=== PATIENT | female | born 1940 | race Caucasian/White ===

== ENCOUNTER 2016-09-03 12:29 | Inpatient (IN) | payer OTHER ==
[~2016-09-03] VITALS: Ht 157.5 cm; Wt 64.1 kg
--- NOTE | 2016-09-03 12:24 | EMERGENCY ROOM VISIT NOTE ---
History Report prepared by Sancho: Nathan Cruz Under the Supervision of: Dr. Enrike Vergara M.D. First contact with patient: 12:23 Stated Complaint: TACHYCARDIA History of Present Illness The patient is a 76 year old female who presents to the Emergency Room with complaints of episodes of supraventricular tachycardia that started around 0945 this morning. The patient has a history of strokes and does not have a history of coronary artery disease. Per EMS, the patient developed chest pain around 0945, then she went to [facility] and told family there that she was not feeling well. The family called an ambulance, and on EMS arrival, the patent was found to be in supraventricular tachycardia. The patient had a heart rate of 180 and a blood pressure of 53 systolic. She was given 6 mg of Adenosine IV and was briefly converted to normal sinus rhythm. She was also given 324 mg of Aspirin. She then returned to supraventricular tachycardia and was given 12 mg of Adenosine IV. She then returned again to normal sinus rhythm. Currently, the patient says she feels okay and just feels a little "weird". She does say the chest pain may be coming back. She denies any loss of consciousness, fevers, chills, cough, or headaches. The patient did not feel like passing out. She is on a blood thinner. The patient is diabetic. Her blood sugar was 151, per EMS. Source of History: patient, EMS Onset: 0945 this morning Position: other (heart - supraventricular tachycardia) Timing: other (episodes) Modifying Factors (Relieving): other (Adenosine) Associated Symptoms: + chest pain, No LOC, No chills, No cough, No fevers, No headache Note: Associated symptoms: Denies feeling like passing out. Currently feels a bit "weird". Review of Systems See HPI for pertinent positives & negatives. A total of 10 systems reviewed and were otherwise negative. Past Medical & Surgical Medical Problems: (1) Diabetes (2) Syncopal episodes Surgical Problems: (1) S/P cataract surgery Family History FHx: heart disease Social History Marital Status: Housing Status: lives with family Occupation Status: retired Current/Historical Medications Scheduled Calcium Carbonate (Calcium), 600 MG PO BID Clopidogrel Bisulfate (Clopidogrel), 75 MG PO QAM Ergocalciferol (Vitamin D 92307 Unit), 50,000 UNIT PO MONTHLY Gemfibrozil (Lopid), 600 MG PO BID Hctz/Losartan (Hyzaar 25MG/100MG), 1 TAB PO DAILY Metformin Hcl Er (Glucophage Er), 500 MG PO DAILY Omeprazole (Prilosec), 20 MG PO DAILY Pravastatin (Pravachol ), 10 MG PO DAILY Verapamil Sust Rel (Calan Sr Ext Rel), 240 MG PO DAILY Allergies Coded Allergies: Lisinopril (Unverified Allergy, Unknown, COUGHING, 09/03/16) Physical Exam Vital Signs Date Time Temp Pulse Resp B/P Pulse Ox O2 Delivery O2 Flow Rate FiO2 09/03/16 13:44 68 12 100 09/03/16 13:29 70 21 99 09/03/16 13:14 70 14 99 09/03/16 12:59 69 20 97/51 100 09/03/16 12:45 72 09/03/16 12:45 Nasal Cannula 4.0 09/03/16 12:45 36.7 72 16 100/43 99 4.0 09/03/16 12:45 100 Nasal Cannula 4.0 09/03/16 12:44 78 23 100 09/03/16 12:44 178 09/03/16 12:43 100/43 09/03/16 12:42 77 09/03/16 12:40 91/68 09/03/16 12:38 171 09/03/16 12:38 80/52 09/03/16 12:35 106/80 Physical Exam GENERAL: Patient is uncomfortable appearing and in minimal distress. HEENT: No acute trauma, normocephalic atraumatic, mucous membranes moist, no nasal congestion, no scleral icterus. NECK: No stridor, no adenopathy, no meningismus, trachea is midline. LUNGS: No dyspnea. Clear to auscultation and equal bilaterally. No wheeze, no rhonchi. HEART: Tachycardic heart rate and regular rhythm. No murmurs, rubs, gallops appreciated. ABDOMEN: Soft, nontender, bowel sounds positive, no masses appreciated, no peritonitis. BACK: No midline tenderness, no CVA tenderness EXTREMITIES: Normal motion all extremities, no cyanosis, no edema. NEUROLOGIC: Alert and oriented, no acute motor or sensory deficits, no focal weakness, cranial nerves grossly intact. SKIN: No rash, no jaundice, no diaphoresis. Medical Decision & Procedures ER Provider Diagnostic Interpretation: X ray results are stated below per my interpretation and the radiologist's interpretation. CHEST ONE VIEW PORTABLE CLINICAL HISTORY: Chest Pain dyspnea COMPARISON STUDY: 07/03/2015 FINDINGS: The bones soft tissues and hemidiaphragms are normal. The cardiomediastinal silhouette is normal. The lungs are clear. The pulmonary vasculature is normal. IMPRESSION: Negative chest. Electronically signed by: Malachi Bajwa M.D. 09/03/2016 1:40 PM Dictated Date/Time: 09/03/2016 1:40 PM Laboratory Results 09/03/16 12:35 Red Blood Count 3.82, Mean Corpuscular Volume 88.2, Mean Corpuscular Hemoglobin 30.4, Mean Corpuscular Hemoglobin Concent 34.4, Mean Platelet Volume 10.7, Neutrophils (%) (Auto) 57.5, Lymphocytes (%) (Auto) 30.3, Monocytes (%) (Auto) 8.8, Eosinophils (%) (Auto) 2.3, Basophils (%) (Auto) 0.9, Neutrophils # (Auto) 5.40, Lymphocytes # (Auto) 2.85, Monocytes # (Auto) 0.83, Eosinophils # (Auto) 0.22, Basophils # (Auto) 0.08 09/03/16 12:35 Test 09/03/16 12:35 09/03/16 12:45 White Blood Count 9.40 K/uL (4.8-10.8) Red Blood Count 3.82 M/uL (4.2-5.4) Hemoglobin 11.6 g/dL (12.0-16.0) Hematocrit 33.7 % (37-47) Mean Corpuscular Volume 88.2 fL (80-100) Mean Corpuscular Hemoglobin 30.4 pg (25-34) Mean Corpuscular Hemoglobin Concent 34.4 g/dl (32-36) Platelet Count 282 K/uL (130-400) Mean Platelet Volume 10.7 fL (7.4-10.4) Neutrophils (%) (Auto) 57.5 % Lymphocytes (%) (Auto) 30.3 % Monocytes (%) (Auto) 8.8 % Eosinophils (%) (Auto) 2.3 % Basophils (%) (Auto) 0.9 % Neutrophils # (Auto) 5.40 K/uL (1.4-6.5) Lymphocytes # (Auto) 2.85 K/uL (1.2-3.4) Monocytes # (Auto) 0.83 K/uL (0.11-0.59) Eosinophils # (Auto) 0.22 K/uL (0-0.5) Basophils # (Auto) 0.08 K/uL (0-0.2) RDW Standard Deviation 45.2 fL (36.4-46.3) RDW Coefficient of Variation 14.0 % (11.5-14.5) Immature Granulocyte % (Auto) 0.2 % Immature Granulocyte # (Auto) 0.02 K/uL (0.00-0.02) Est Creatinine Clear Calc Drug Dose 35.6 ml/min Estimated GFR () 51.2 Estimated GFR (Non- 44.2 BUN/Creatinine Ratio 19.7 (10-20) Calcium Level 9.0 mg/dl (8.5-10.1) Magnesium Level 1.8 mg/dl (1.8-2.4) Total Creatine Kinase 55 U/L (26-192) Creatine Kinase MB 3.3 ng/ml (0.5-3.6) Creatine Kinase MB Ratio 6.0 (0-3.0) Troponin I 0.037 ng/ml (0-0.045) Thyroid Stimulating Hormone (TSH) 5.430 uIu/ml (0.300-4.500) Bedside Hemoglobin 10.9 g/dl (12.0-16.0) Bedside Hematocrit 32 % (37-47) Bedside Sodium 142 mEq/L (135-144) Bedside Potassium 2.7 mEq/L (3.3-5.0) Bedside Chloride 107 mEq/L (101-112) Bedside Total CO2 19 mEq/l (24-31) Anion Gap 20.0 mmol/L (16-25) Bedside Blood Urea Nitrogen 24 mg/dl (7-18) Bedside Creatinine 1.0 mg/dl (0.6-1.3) Bedside Glucose (other) 121 mg/dl (70-99) Bedside Ionized Calcium ([place]) 1.25 mmol/l (1.12-1.32) Laboratory results as reviewed by me. Medications Administered Medications (Trade) Dose Ordered Sig/Tito Route Start Time Stop Time Status Last Admin Dose Admin Diltiazem HCl (Cardizem Inj) 25 mg STK-MED ONCE .ROUTE 09/03/16 12:33 09/03/16 12:35 DC 09/03/16 12:56 15 MG Adenosine (Adenosine IV) 6 mg STK-MED ONCE IV 09/03/16 12:38 09/03/16 12:40 DC 09/03/16 12:44 6 MG Potassium Chloride (Kcl 10 Meq / Wtr) 20 meq STK-MED ONCE IV 09/03/16 13:08 09/03/16 13:10 DC 09/03/16 13:18 20 MEQ ECG Indication: tachycardia (SVT) Rate (beats per minute): 71 Rhythm: normal sinus Findings: 1st degree AV block, other (prolonged QTC of 489, nonspecific-ST depressions) ED Course 1230: The patient was evaluated in room C11B. A complete history and physical exam was performed. 1247: I discussed the patient with Dr. Walden - [facility] cardiology. 1259: Ordered Potassium Chloride 20 meq/Prmx 100 ml @ 50 mls/hr IV. 1307: Dr. Walden is at bedside. 1335: I reevaluated the patient and she is resting comfortably. The patient verbally expressed understanding and agreement of the treatment plan. The patient will be evaluated for further treatment. 1336: I discussed the patient with Dr. Delgado - [facility] hospital[facility] - he will evaluate the patient for for further treatment. Medical Decision Differential: NSR, SVT, PACs, PVCs, Cardiac Dysrhythmia, Endocrine Dysfunction, Electrolyte/Metabolic Abnormality, Pulmonary Embolism, Infectious, GI, amongst other pathologies entertained. 76 yr old female arrives via EMS already known SOCIAL MEDIA EDITOR to me as EMS called me for med command. Patient with several hours chest pressure found to be in SVT on EMS arrival. Given 2 rounds adenosine SOCIAL MEDIA EDITOR each time with resolution of CP and SVT though after 5-10 minutes returning to SVT. She flipped back to SVT shortly after arrival thus started Cardizem though as BP dropping given another dose Adenosine with return to NSR. Prolonged RI consistent with first av block. She is stable and in no distress. K is quite low which could be cause though likely this is primary electrical issue. Given IV K as well though. Significant ST abnormalities while in SVT and given chest pressure and difficulty with converting she will need to come in for further management. Already had [facility] SOCIAL MEDIA EDITOR. Consults Time Called: 1220 Consulting Physician: Dr. Win Israel cardiology Returned Call: 1247 I discussed the patient with Dr. Win Israel cardiology. Additional Consults: Time Called: 1330 Consulted Physician: Dr. Sandy CHIU hospitalist Returned Call: [phone] Additional Comments: I discussed the patient with Dr. Sandy CHIU hospitalist - he will evaluate the patient for for further treatment. Impression Primary Impression: SVT (supraventricular tachycardia) Additional Impression: Hypokalemia Critical Care I have personally spent greater than 35 minutes of critical care time in the direct management of this patient. This was a life/limb threatening event. This includes time spent evaluating patient, direct bedside care, chart review, placing orders, interpretation of diagnostic studies, discussion with consultants, patient, and family members, as well as other required patient management activities. This 35 minutes is in excess of all separately billable procedures. Scribe Attestation The scribe's documentation has been prepared under my direction and personally reviewed by me in its entirety. I confirm that the note above accurately reflects all work, treatment, procedures, and medical decision making performed by me. Departure Information Dispostion Being Evaluated By Hospitalist Problem Qualifiers
[~2016-09-03 12:29] MED LIST: CALCTAB5 PO; GEMF600T3 PO; LOSA100T2 PO; METF500T5 PO; PLV75 PO; PRAV20TA PO; VERA240T20 PO
[2016-09-03] MEDS ORDERED: DILTIAZEM HCL 5 MG/ML 5 ML VIAL ONE (12:33)
[2016-09-03] MEDS ORDERED: ADENOSINE IV SOLN 3 MG/ML 2 ML VIAL IV ONE ×2 (12:38→13:12)
[2016-09-03 12:51] LABS: BASO % 0.9 %; BASO ABS # 0.08 K/uL (0-0.2); COMPLETE YES; EOS % 2.3 %; HEMATOCRIT 33.7 % (37-47); IG% 0.2 %; LYMPH % 30.3 %; LYMPH ABS # 2.85 K/uL (1.2-3.4); MEAN CELL VOLUME 88.2 fL (80-100); MEAN CORPUSCULAR HEMOGLOBIN 30.4 pg (25-34); MEAN CORPUSCULAR HGB CONC 34.4 g/dl (32-36); MEAN PLATELET VOLUME 10.7 fL (7.4-10.4); MONO % 8.8 %; NEUT % 57.5 %; PLATELET COUNT 282 K/uL (130-400); RED BLOOD COUNT 3.82 M/uL (4.2-5.4)
[2016-09-03] MEDS ORDERED: POTASSIUM CHLR 20 MEQ / WTR 20 MEQ in PREMIXED WATER 100 ML IV STA (12:59)
[2016-09-03 13:02] LABS: ISTAT HEMOGLOBIN 10.9 g/dl (12.0-16.0); ISTAT IONIZED CALCIUM 1.25 mmol/l (1.12-1.32)
[2016-09-03] MEDS ORDERED: POTASSIUM CHLORIDE 10 MEQ / 100ML WTR IV ONE (13:08)
[2016-09-03 13:10] LABS: BUN/CREATININE RATIO 19.7 (10-20); CREATININE 1.2 mg/dl (0.60-1.20); MAGNESIUM 1.8 mg/dl (1.8-2.4); POTASSIUM 2.8 mmol/L (3.5-5.1)
[2016-09-03 13:20] LABS: THYROID STIMULATING HORMONE 5.43 uIu/ml (0.300-4.500)
[2016-09-03] MEDS ORDERED: HYZ/10015 PO (13:32)
[2016-09-03] MEDS ORDERED: CALC-393 PO (13:32)
[2016-09-03] MEDS ORDERED: ERGO500037 PO (13:34)
[2016-09-03] MEDS ORDERED: PRLSR20 PO (13:34)
--- NOTE | 2016-09-03 13:42 | DIAGNOSTIC IMAGING REPORT ---
CHEST ONE VIEW PORTABLE CLINICAL HISTORY: Chest Pain dyspnea COMPARISON STUDY: 07/03/2015 FINDINGS: The bones soft tissues and hemidiaphragms are normal. The cardiomediastinal silhouette is normal. The lungs are clear. The pulmonary vasculature is normal. IMPRESSION: Negative chest. Electronically signed by: Malachi Bajwa M.D. 09/03/2016 1:40 PM Dictated Date/Time: 09/03/2016 1:40 PM
[2016-09-03] MEDS ORDERED: ALUMINUM/MAGNESIUM/SIMETH (MAALOX MAX) 30 ML UDC PO PRN (14:00)
[2016-09-03] MEDS ORDERED: MAGNESIUM HYDROXIDE SUSP 30 ML UDC PO PRN (14:00)
[2016-09-03] MEDS ORDERED: NITROGLYCERIN 0.4 MG SL PER TAB CHARGE SL PRN (14:00)
[2016-09-03] MEDS ORDERED: ACETAMINOPHEN 325 MG TAB PO PRN (14:00)
[2016-09-03] MEDS ORDERED: ONDANSETRON INJ 2 MG/ML 2 ML VIAL IV PRN (14:00)
--- NOTE | 2016-09-03 14:11 | Cardiology Consultation ---
Cardiology Consultation Date of Consultation: Sep 03, 2016 History of Present Illness Ya Dejesus is a 76-year-old female seen in cardiology consultation in the emergency department per the request of Dr. Vergara. The patient's primary care provider is Dr. Rosalie Reece of [facility]. She does not have the previously established relationship with a calibration checker, although she has had inpatient and outpatient echocardiogram studies interpreted by our practice in the past. The patient states that she was in her regular state of health today. Her taoism surface starts at 10:45 AM and she noted feeling well when she arrived to taoism. During the taoism service she started to feel chest pressure and upper arm discomfort. She completed the taoism service and complete some chores that she had do at the taoism afterward. She subsequently went home. She lives with her daughter and her son-in-law. She continued to have the chest pressure and therefore EMS was summoned. Upon arrival, she was found to have a significant elevation in her heart rate. An EKG performed by paramedics prehospital reveals a narrow complex tachycardia at [address] segment depression consistent with ischemia. The patient received 6 mg of adenosine administered by the paramedics, followed by 12 mg of adenosine. She subsequent converted to sinus rhythm. By the time she arrived to the emergency department however she went back into the tachycardia. 5 mg of diltiazem was then administered. The dose of diltiazem was small due to concerns of systolic blood pressure of 80 mmHg. The patient subsequently received 6 mg of adenosine with conversion back to sinus rhythm, she had another brief episode of tachycardia prompting another 10 mg of IV diltiazem. I was asked to see the patient. By my arrival, she had converted to sinus rhythm after IV diltiazem and she is feeling comfortable. Her chest discomfort had completely resolved, and she stated that she felt well enough to go home. The patient states that she does not recall ever having a prolonged chest pain episode like this before. She does note perhaps a similar heavy chest and arm ache about a year ago but it was not this prolonged period she did not have a subjective sensation that her heart was racing. Review of her outpatient chart reveals past history of mitral valve stenosis. Outpatient stress echocardiogram performed in November 2014 revealed moderate mitral stenosis. Frequent supraventricular ectopy was noted on the stress EKG, the study was negative for inducible ischemia by echocardiographic and EKG criteria. The patient was subsequently admitted to [facility] in June 2015 after a loss of consciousness episode possibly due to syncope versus seizure. An echocardiogram performed during that hospital stay found moderate to severe mitral valve stenosis. The patient has underlying history of hypertension and has been on losartan/ HCTZ as well as verapamil 240 mg daily. She does not recall ever having been told she had elevated heart rates before. History PAST MEDICAL HISTORY: 1. Mitral valve stenosis 2. Finding of asymmetric septal hypertrophy and past echocardiogram 3. Type 2 diabetes mellitus 4. Dyslipidemia 5. Hypertension 6. Stage III chronic kidney disease 7. Past workup revealed evidence of lacunar strokes, 2015 prompting treatment with clopidogrel PAST SURGICAL HISTORY: 1. Total hysterectomy, age 38 for concerns of precancerous findings 2. Tonsillectomy as a child 3. Appendectomy performed with her hysterectomy 4. 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 Review Of Systems See above for pertinent positives & negatives. A total of 10 systems reviewed and were otherwise negative. Allergies Coded Allergies: Lisinopril (Unverified Allergy, Unknown, COUGHING, 09/03/16) Medications Reported Home Medications Medications Dose Route/Sig Max Daily Dose Days Date Category Vitamin D 89523 Unit (Ergocalciferol) 50,000 Unit Cap 50,000 Unit PO MONTHLY 09/03/16 Reported Prilosec (Omeprazole) 20 Mg Capcr 20 Mg PO DAILY 09/03/16 Reported Hyzaar 25MG/100MG (HCTZ/Losartan Potassium) Tab 1 Tab PO DAILY 09/03/16 Reported Calcium (Calcium Carbonate) 600 Mg Tab 600 Mg PO BID 09/03/16 Reported Clopidogrel (Clopidogrel Bisulfate) 75 Mg Tab 75 Mg PO QAM 30 07/04/15 Rx Lopid (Gemfibrozil) 600 Mg Tab 600 Mg PO BID 07/03/15 Reported Glucophage Er (Metformin HCl) 500 Mg Tab 500 Mg PO DAILY 90 07/03/15 Reported Calan Sr Ext Rel (Verapamil HCl) 240 Mg Tabcr 240 Mg PO DAILY 07/03/15 Reported Pravachol (Pravastatin Sodium) 20 Mg Tab 10 Mg PO DAILY 07/03/15 Reported Physical Exam Vital Signs (Last 8hrs): Last 8 Hrs Date Time Temp Pulse Resp B/P Pulse Ox O2 Delivery O2 Flow Rate FiO2 09/03/16 13:44 68 12 100 09/03/16 13:29 70 21 99 09/03/16 13:14 70 14 99 09/03/16 12:59 69 20 97/51 100 09/03/16 12:45 72 09/03/16 12:45 Nasal Cannula 4.0 09/03/16 12:45 36.7 72 16 100/43 99 4.0 09/03/16 12:45 100 Nasal Cannula 4.0 09/03/16 12:44 78 23 100 09/03/16 12:44 178 09/03/16 12:43 100/43 09/03/16 12:42 77 09/03/16 12:40 91/68 09/03/16 12:38 171 09/03/16 12:38 80/52 09/03/16 12:35 106/80 General Appearance: Alert and Oriented x3. NAD. Head: Normocephalic Atraumatic. Eyes: PERRLA, EOMI, conjunctiva and sclera clear Neck: Supple. No carotid bruits noted. No JVD. No HJD. Respiratory: Breath sounds clear to auscultation bilaterally. No w/r/r. Cardiovascular: Reg rate and rhythm. 1/6 diastolic murmur Abdomen: Normal bowel sounds, soft nontender. no abdominal bruits. Extremities: No edema, no clubbing or cyanosis. distal pulses 2/4 bilaterally. Neuro: No focal deficits. Psychiatric: Normal affect. Data Last Resulted 09/03/16 12:35 Red Blood Count 3.82, Mean Corpuscular Volume 88.2, Mean Corpuscular Hemoglobin 30.4, Mean Corpuscular Hemoglobin Concent 34.4, Mean Platelet Volume 10.7, Neutrophils (%) (Auto) 57.5, Lymphocytes (%) (Auto) 30.3, Monocytes (%) (Auto) 8.8, Eosinophils (%) (Auto) 2.3, Basophils (%) (Auto) 0.9, Neutrophils # (Auto) 5.40, Lymphocytes # (Auto) 2.85, Monocytes # (Auto) 0.83, Eosinophils # (Auto) 0.22, Basophils # (Auto) 0.08 Last Resulted 09/03/16 12:35 Past 24 Hours Test 09/03/16 12:35 Range/Units Creatine Kinase MB 3.3 0.5-3.6 ng/ml Creatine Kinase MB Ratio 6.0 H 0-3.0 Total Creatine Kinase 55 26-192 U/L Troponin I 0.037 0-0.045 ng/ml Prehospital 12-lead EKG reveals no Tachycardia 180 bpm consistent with supraventricular tachycardia with significant diffuse ST segment depression consistent with ischemia. EKG after conversion to sinus rhythm reveals sinus rhythm with first-degree AV block, AZ interval was 234 ms, mild residual ST depression was noted but much improved compared to the tracing when she was tachycardic. Telemetry reviewed: Noted narrow complex tachycardia with conversion to sinus rhythm, no compensatory pause. Assessment & Plan Impression: 76-year-old female 1. Presented with symptoms of chest pressure, upper arm discomfort in the setting of supraventricular tachycardia with rate in excess of 180 bpm 2. History of moderate to severe mitral stenosis 3. History of lacunar infarcts on past neuro imaging 5. History of hypertension 6. History dyslipidemia 7. Hypokalemia Recommendations: The patient was in the process of receiving 20 mEq of IV potassium as administered by the emergency room team tired to my arrival. She already received 1 L of normal saline and a second liter was infusing which she tolerated well. Her magnesium levels 1.8 which is the lower limit of normal. Recommend magnesium oxide 400 mg by mouth 2 doses. Potassium is low at 2.6 mmol per liter, I have ordered 40 mEq of oral potassium to be given as soon as possible in addition to the 20 mEq of IV potassium. Given her age, weight, and kidney function, this should be sufficient. Recommend holding losartan/HCTZ. Hold patient's long-acting verapamil 240 mg daily, and instead administered with the short acting formulation of verapamil at 40 mg every 6 hours with holds. Start metoprolol tartrate 25 mg twice a day in addition to the verapamil with first dose to be administered as soon as possible, 2 PM, next dose to be administered tomorrow at 9 AM. Given her underlying mitral stenosis, it is not surprising that she had symptoms of angina and EKG changes consistent with ischemia or tachycardic, his during her tachycardia she likely had decreased diastolic filling time, and her left ventricle was probably suffering from diminished preload. A repeat echocardiogram will be obtained to reassess her mitral valve. Trend cardiac enzymes, and electrolyte levels. Patient is to be admitted to the telemetry unit on the hospitalist service. Further recommendations be forthcoming as her hospital stay develops. Case discussed with Dr. Vergara and Dr. Delgado. I spoke to her nurse in the emergency department and requested that the initial doses of magnesium, potassium chloride, and metoprolol were administered prior to her leaving the emergency department.
[2016-09-03] MEDS ORDERED: METOPROLOL TARTRATE 25 MG TAB PO ONE (14:15)
[2016-09-03] MEDS ORDERED: POTASSIUM CHLR 20 MEQ / WTR 20 MEQ in PREMIXED WATER 100 ML IV ONE (14:15)
[2016-09-03] MEDS ORDERED: POTASSIUM CHLORIDE 20 MEQ TABCR PO ONE ×2 (14:15→23:00)
[2016-09-03] MEDS ORDERED: MAGNESIUM OXIDE 400 MG TAB PO ONE (14:30)
--- NOTE | 2016-09-03 14:58 | HISTORY & PHYSICAL EXAMINATION ---
DATE OF ADMISSION: 09/03/2016 CHIEF COMPLAINT: Chest pain and SVT. HISTORY OF PRESENT ILLNESS: This is a 76-year-old female with past medical history significant for hyperlipidemia, osteoporosis, family history of colon cancer, chronic kidney disease stage III, asymmetric septal hypertrophy and mitral stenosis, type 2 diabetes, hypertension, presents with chest pain and SVT. The patient was at [employer] when she noticed she was not feeling comfortable, not feeling well and also had some chest pressure radiating to her both arms and at that time EMS was called and in the EMS, she was found to be in SVT. She was given 1 dose of adenosine 6 and another dose of 12 mg and she seemed to be converted to sinus rhythm and she was brought into the ER. In the ER 5mg of iv cardizem given as her blood pressure was on klower side.But again she went back to SVT and she got another dose of adenosine, but she only converted to short period of time to sinus and went back again into SVT and she was given IV 10mg Cardizem and currently she is in sinus rhythm and symptoms are resolved. Blood pressure is somewhat on the borderline. Prior to this episode, she was perfectly fine. No fever, no chills, no shortness of breath, no cough, no dizziness, no nausea, no vomiting, no abdominal pain. Eating and drinking fine. Normal bowel and bladder movements. Currently resting comfortably and hemodynamically stable. ALLERGIES: No known drug allergies. PAST MEDICAL HISTORY: As mentioned above. PAST SURGICAL HISTORY: Appendectomy done with hysterectomy, colonoscopy, EGD with biopsies, tonsillectomy and adenoidectomy, total hysterectomy at the age of 38. MEDICATIONS: The patient is on omeprazole 20 mg p.o. daily, losartan/hydrochlorothiazide 100/25 mg p.o. daily, pravastatin 10 mg p.o. daily, vitamin D 5000 units p.o. daily, Plavix 75 mg p.o. daily, metformin XR 500 mg p.o. daily, verapamil SR 240 mg p.o. daily, gemfibrozil 600 mg p.o. b.i.d., Fosamax 70 mg p.o. weekly. FAMILY HISTORY: Significant for mother had CVA, CA and diabetes and at age of 64. Father had CA at 47 and at age of 83. Brother had colon cancer and is alive. SOCIAL HISTORY: No smoking history, no alcohol history. Her in 2008. Lives with a daughter. REVIEW OF SYMPTOMS: As per HPI. Rest of review of systems negative. PHYSICAL EXAMINATION: GENERAL: The patient is of moderate build, not in distress. VITAL SIGNS: Temperature 36.7; pulse when she came in was in 180, currently 72; respiratory rate 16, blood pressure 100/43, oxygen 99 percent on 4 liters. HEENT: No pallor, no icterus. Pupils equal, round, and reactive to light. NECK: No JVD, no neck masses, no carotid bruits. CARDIOVASCULAR: S1, S2 heard, regular rate and rhythm; diastolic murmur in the mitral area. RESPIRATORY SYSTEM: Normal AP diameter No accessory muscle use. No wheezing, no crackles. ABDOMEN: Soft, bowel sounds present. Nontender. No distention. CENTRAL NERVOUS SYSTEM: Cranial nerves II-XII grossly intact. Nonfocal. EXTREMITIES: No edema, no erythema. LABORATORIES: Sodium 145, potassium 2.8, chloride 109, bicarbonate 19, BUN 24, creatinine 1.2, serum glucose 163. Calcium 9, magnesium 1.8, total creatinine kinase 55. Troponin 1 0.03. TSH 5.4. WBC 9.4, hemoglobin 11.6, hematocrit 33.7, platelets 282. IMAGING DATA: Chest x-ray, no acute findings seen. EKG Currently, normal sinus rhythm with a rate of 71 with first degree AV block, no acute ST-changes seen. ASSESSMENT AND PLAN: This is a 76-year-old female who presents with supraventricular tachycardia. 1. Supraventricular tachycardia. Required 3 doses of adenosine and Cardizem, currently in sinus rhythm. Cardiology saw the patient. Her symptoms could be from severe mitral stenosis. Will follow the echocardiogram, serial cardiac enzymes and plan for stopping the long-acting verapamil and losartan/hydrochlorothiazide and placing on short-acting Cardizem and Lopressor, as per cardiology. Close monitor in the tele floor. 2. Hypokalemia. We will replace and follow labs 3. HTN Short-acting Cardizem and Lopressor as above and we will monitor the blood pressure. 4. History of diabetes. We will hold the metformin and place on insulin-sliding scale.Follow hba1c levels. 5. History of mitral stenosis, moderate to severe in the previous echo. We will follow the repeat echo and may need mitral valve replacement. 6. History of hyperlipidemia. Continue home medications gemfibrozil and pravastatin. 7. Gastroesophageal reflux disease. Continue PPI 8. Deep vein thrombosis prophylaxis, SCDs and TEDs for now. 9. Disposition: Admit to tele floor. Expect to discharge home and follow with the family doctor and cardiology. Level 1 full code. MTDD
[2016-09-03 15:30] VITALS: BP 105/68; PULSE 74; TEMP 36.6; O2SAT 94; Ht 157.5 cm; Wt 64.1 kg
[2016-09-03] MEDS ORDERED: GLUCAGON FOR INJ 1 MG VIAL SQ PRN (15:30)
[2016-09-03] MEDS ORDERED: GLUCOSE 10 TABS/TUBE PO PRN (15:30)
[2016-09-03] MEDS ORDERED: GLUCOSE 40% GEL 15 GM TUBE PO PRN (15:30)
[2016-09-03] MEDS ORDERED: DEXTROSE 50% 50 ML SYR IV PRN (15:30)
[2016-09-03 16:02] VITALS: BP 105/68; PULSE 74; TEMP 36.6
[2016-09-03] MEDS: INSULIN ASPART 100 UNITS/ML 3 ML PEN SC SCH ×2 (16:15→20:28)
[2016-09-03 16:18] VITALS: O2SAT 94
[2016-09-03] MEDS: GEMFIBROZIL 600 MG TAB PO SCH (16:50)
[2016-09-03] MEDS: VERAPAMIL HCL 40 MG TAB PO SCH ×2 (16:52→23:17)
[2016-09-03 19:45] VITALS: BP 84/50; PULSE 60; TEMP 36.3; O2SAT 94
[2016-09-03 20:49] LABS: HEMATOCRIT 30.6 % (37-47)
[2016-09-03] MEDS ORDERED: SODIUM CHLORIDE 0.9% 250ML 250 ML IV ONE (21:00)
[2016-09-03 21:09] LABS: BUN/CREATININE RATIO 16.6 (10-20); CALCIUM 8.6 mg/dl (8.5-10.1); CREATININE 1.3 mg/dl (0.60-1.20); MAGNESIUM 1.8 mg/dl (1.8-2.4); POTASSIUM 3.4 mmol/L (3.5-5.1)
[2016-09-03 21:43] VITALS: BP 97/61
[2016-09-03 22:32] LABS: CKMB/CK RATIO 20.3 (0-3.0)
[2016-09-03] MEDS: MAGNESIUM OXIDE 400 MG TAB PO SCH (22:37)
--- NOTE | 2016-09-03 22:44 | Progress Note ---
Internal Med Progress Note Date of Service: Sep 03, 2016. Provider Documentation: Made aware by RN of 2nd set troponin = 2 Px asymptomatic. Admission notes reviewed. AP ACS continue antiplatelet tx, BB, statin meds add low dose IV heparin NPO after midnight RE poss procedure Will relay to AM provider. Vital Signs: Date Time Temp Pulse Resp B/P Pulse Ox O2 Delivery O2 Flow Rate FiO2 09/04/16 07:38 36.6 64 16 107/68 96 Room Air 09/04/16 04:02 36.4 61 18 92/55 95 Room Air 09/04/16 04:00 Room Air 09/04/16 00:03 36.3 60 20 98/62 93 Room Air 09/04/16 00:00 Room Air 09/03/16 21:43 97/61 09/03/16 20:00 Room Air 09/03/16 19:45 36.3 60 18 84/50 94 Room Air 09/03/16 16:18 94 Room Air 09/03/16 16:02 36.6 74 18 105/68 09/03/16 15:30 94 Room Air 09/03/16 15:30 36.6 74 18 105/68 94 Room Air 09/03/16 15:30 94 Room Air 09/03/16 13:44 68 12 100 09/03/16 13:29 70 21 99 09/03/16 13:14 70 14 99 09/03/16 12:59 69 20 97/51 100 09/03/16 12:45 72 09/03/16 12:45 Nasal Cannula 4.0 09/03/16 12:45 36.7 72 16 100/43 99 4.0 09/03/16 12:45 100 Nasal Cannula 4.0 09/03/16 12:44 78 23 100 09/03/16 12:44 178 09/03/16 12:43 100/43 09/03/16 12:42 77 09/03/16 12:40 91/68 09/03/16 12:38 171 09/03/16 12:38 80/52 09/03/16 12:35 106/80 Lab Results: Results Past 24 Hours Test 09/03/16 12:35 09/03/16 12:45 09/03/16 15:50 09/03/16 20:21 Range/Units White Blood Count 9.40 4.8-10.8 K/uL Red Blood Count 3.82 4.2-5.4 M/uL Hemoglobin 11.6 12.0-16.0 g/dL Hematocrit 33.7 37-47 % Mean Corpuscular Volume 88.2 80-100 fL Mean Corpuscular Hemoglobin 30.4 25-34 pg Mean Corpuscular Hemoglobin Concent 34.4 32-36 g/dl Platelet Count 282 130-400 K/uL Mean Platelet Volume 10.7 7.4-10.4 fL Neutrophils (%) (Auto) 57.5 % Lymphocytes (%) (Auto) 30.3 % Monocytes (%) (Auto) 8.8 % Eosinophils (%) (Auto) 2.3 % Basophils (%) (Auto) 0.9 % Neutrophils # (Auto) 5.40 1.4-6.5 K/uL Lymphocytes # (Auto) 2.85 1.2-3.4 K/uL Monocytes # (Auto) 0.83 0.11-0.59 K/uL Eosinophils # (Auto) 0.22 0-0.5 K/uL Basophils # (Auto) 0.08 0-0.2 K/uL RDW Standard Deviation 45.2 36.4-46.3 fL RDW Coefficient of Variation 14.0 11.5-14.5 % Immature Granulocyte % (Auto) 0.2 % Immature Granulocyte # (Auto) 0.02 0.00-0.02 K/uL Sodium Level 145 136-145 mmol/L Potassium Level 2.8 3.5-5.1 mmol/L Chloride Level 109 98-107 mmol/L Carbon Dioxide Level 19 21-32 mmol/L Anion Gap 17.0 20.0 16-25 mmol/L Blood Urea Nitrogen 24 7-18 mg/dl Creatinine 1.20 0.60-1.20 mg/dl Est Creatinine Clear Calc Drug Dose 35.6 ml/min Estimated GFR () 51.2 Estimated GFR (Non- 44.2 BUN/Creatinine Ratio 19.7 10-20 Random Glucose 163 70-99 mg/dl Calcium Level 9.0 8.5-10.1 mg/dl Magnesium Level 1.8 1.8-2.4 mg/dl Total Creatine Kinase 55 26-192 U/L Creatine Kinase MB 3.3 0.5-3.6 ng/ml Creatine Kinase MB Ratio 6.0 0-3.0 Troponin I 0.037 0-0.045 ng/ml Thyroid Stimulating Hormone (TSH) 5.430 0.300-4.500 uIu/ml Bedside Hemoglobin 10.9 12.0-16.0 g/dl Bedside Hematocrit 32 37-47 % Bedside Sodium 142 135-144 mEq/L Bedside Potassium 2.7 3.3-5.0 mEq/L Bedside Chloride 107 101-112 mEq/L Bedside Total CO2 19 24-31 mEq/l Bedside Blood Urea Nitrogen 24 7-18 mg/dl Bedside Creatinine 1.0 0.6-1.3 mg/dl Bedside Glucose (other) 121 70-99 mg/dl Bedside Ionized Calcium ([place]) 1.25 1.12-1.32 mmol/l Bedside Glucose 137 129 70-90 mg/dl Test 09/03/16 20:35 09/03/16 21:55 09/03/16 23:20 09/04/16 06:16 Range/Units Hemoglobin 10.5 9.9 10.1 12.0-16.0 g/dL Hematocrit 30.6 29.3 30.2 37-47 % Sodium Level 142 143 136-145 mmol/L Potassium Level 3.4 3.7 3.5-5.1 mmol/L Chloride Level 112 112 98-107 mmol/L Carbon Dioxide Level 18 18 21-32 mmol/L Anion Gap 12.0 13.0 3-11 mmol/L Blood Urea Nitrogen 22 19 7-18 mg/dl Creatinine 1.30 1.10 0.60-1.20 mg/dl Est Creatinine Clear Calc Drug Dose 32.9 39.0 ml/min Estimated GFR () 46.5 56.9 Estimated GFR (Non- 40.1 49.1 BUN/Creatinine Ratio 16.6 16.9 10-20 Random Glucose 119 134 70-99 mg/dl Lactic Acid Level 1.1 0.4-2.0 mmol/L Calcium Level 8.6 8.4 8.5-10.1 mg/dl Magnesium Level 1.8 2.3 1.8-2.4 mg/dl Total Creatine Kinase 97 82 26-192 U/L Creatine Kinase MB 19.7 14.1 0.5-3.6 ng/ml Creatine Kinase MB Ratio 20.3 17.2 0-3.0 Troponin I 2.060 2.080 0-0.045 ng/ml White Blood Count 9.78 11.05 4.8-10.8 K/uL Red Blood Count 3.33 3.43 4.2-5.4 M/uL Mean Corpuscular Volume 88.0 88.0 80-100 fL Mean Corpuscular Hemoglobin 29.7 29.4 25-34 pg Mean Corpuscular Hemoglobin Concent 33.8 33.4 32-36 g/dl Platelet Count 249 255 130-400 K/uL Mean Platelet Volume 10.9 10.9 7.4-10.4 fL Neutrophils (%) (Auto) 52.0 61.6 % Lymphocytes (%) (Auto) 40.2 29.0 % Monocytes (%) (Auto) 5.1 6.9 % Eosinophils (%) (Auto) 2.1 1.9 % Basophils (%) (Auto) 0.4 0.4 % Neutrophils # (Auto) 5.08 6.82 1.4-6.5 K/uL Lymphocytes # (Auto) 3.93 3.20 1.2-3.4 K/uL Monocytes # (Auto) 0.50 0.76 0.11-0.59 K/uL Eosinophils # (Auto) 0.21 0.21 0-0.5 K/uL Basophils # (Auto) 0.04 0.04 0-0.2 K/uL RDW Standard Deviation 45.1 45.4 36.4-46.3 fL RDW Coefficient of Variation 14.0 14.0 11.5-14.5 % Immature Granulocyte % (Auto) 0.2 0.2 % Immature Granulocyte # (Auto) 0.02 0.02 0.00-0.02 K/uL Prothrombin Time 11.2 9.0-12.0 SECONDS Prothromb Time International Ratio 1.0 0.9-1.1 Activated Partial Thromboplast Time 26.4 31.6 21.0-31.0 SECONDS Partial Thromboplastin Ratio 1.0 1.2 Triglycerides Level 197 0-150 mg/dl Cholesterol Level 131 0-200 mg/dl HDL Cholesterol 35 mg/dl LDL Cholesterol, Calculated 57 mg/dl VLDL Cholesterol, Calculated 39 mg/dl Cholesterol/HDL Ratio 3.7 Test 09/04/16 06:39 Range/Units Bedside Glucose 137 70-90 mg/dl
[2016-09-03] MEDS ORDERED: MAGNESIUM SULFATE 1GM / D5W 1 GM in PREMIXED IN D5W 100 ML IV ONE (22:45)
[2016-09-03] MEDS ORDERED: LACTATED RINGER'S 1000ML 1,000 ML IV SCH (22:45)
[2016-09-03] MEDS ORDERED: HEPARIN IV LOW DOSE NO BOLUS SCH (22:45)
[2016-09-03] MEDS ORDERED: LACTATED RINGER'S 1000ML 1,000 ML IV ONE (23:00)
[2016-09-03] MEDS: HEPARIN 25,000 UNIT/500ML D5W 500 ML IV PRN (23:49)
[2016-09-03 23:50] LABS: BASO % 0.4 %; BASO ABS # 0.04 K/uL (0-0.2); EOS % 2.1 %; HEMATOCRIT 29.3 % (37-47); IG% 0.2 %; LYMPH % 40.2 %; LYMPH ABS # 3.93 K/uL (1.2-3.4); MEAN CORPUSCULAR HEMOGLOBIN 29.7 pg (25-34); MEAN PLATELET VOLUME 10.9 fL (7.4-10.4); MONO % 5.1 %; PLATELET COUNT 249 K/uL (130-400); RED BLOOD COUNT 3.33 M/uL (4.2-5.4); WHITE BLOOD COUNT 9.78 K/uL (4.8-10.8)
[2016-09-04] VITALS (8 sets, daily range): BP systolic 92–113; BP diastolic 55–69; PULSE 60–74; TEMP 36.3–37.7; O2SAT 92–96
[2016-09-04 00:02] LABS: PROTHROMBIN TIME (PATIENT) 11.2 SECONDS (9.0-12.0)
[2016-09-04 00:03] LABS: COMPLETE YES; MEAN CORPUSCULAR HGB CONC 33.8 g/dl (32-36)
[2016-09-04] MEDS: VERAPAMIL HCL 40 MG TAB PO SCH ×3 (05:33→17:53)
[2016-09-04 06:32] LABS: BASO % 0.4 %; BASO ABS # 0.04 K/uL (0-0.2); COMPLETE YES; EOS % 1.9 %; HEMATOCRIT 30.2 % (37-47); IG% 0.2 %; MEAN CORPUSCULAR HEMOGLOBIN 29.4 pg (25-34); MEAN CORPUSCULAR HGB CONC 33.4 g/dl (32-36); MEAN PLATELET VOLUME 10.9 fL (7.4-10.4); MONO % 6.9 %; NEUT % 61.6 %; PLATELET COUNT 255 K/uL (130-400); RED BLOOD COUNT 3.43 M/uL (4.2-5.4); WHITE BLOOD COUNT 11.05 K/uL (4.8-10.8)
[2016-09-04 06:41] LABS: PARTIAL THROMBOPLASTIN RATIO 1.2
[2016-09-04] MEDS: INSULIN ASPART 100 UNITS/ML 3 ML PEN SC SCH ×4 (07:00→20:22)
[2016-09-04 07:12] LABS: BUN/CREATININE RATIO 16.9 (10-20); CALCIUM 8.4 mg/dl (8.5-10.1); CREATININE 1.1 mg/dl (0.60-1.20); MAGNESIUM 2.3 mg/dl (1.8-2.4); POTASSIUM 3.7 mmol/L (3.5-5.1)
[2016-09-04 07:22] LABS: CHOLESTEROL/HDL RATIO 3.7; CKMB/CK RATIO 17.2 (0-3.0)
[2016-09-04] MEDS ORDERED: PERFLUTREN LIPID MICROSPHERE (DEFINITY) IV ONE (07:28)
[2016-09-04] MEDS: GEMFIBROZIL 600 MG TAB PO SCH ×2 (07:35→20:25)
[2016-09-04] MEDS: PANTOprazole SOD 40 MG TAB PO SCH (07:36)
[2016-09-04] MEDS: PRAVASTATIN SOD 20 MG TAB PO SCH (07:36)
[2016-09-04] MEDS: MAGNESIUM OXIDE 400 MG TAB PO SCH (07:37)
[2016-09-04] MEDS: CLOPIDOGREL BISULFATE 75 MG TAB PO SCH (07:37)
[2016-09-04] MEDS: METOPROLOL TARTRATE 25 MG TAB PO SCH ×2 (07:38→20:25)
[2016-09-04] MEDS ORDERED: HEPARIN IV BOLUS 4,000 UNIT in SYRINGE 0 ML IV ONE (08:00)
[2016-09-04] MEDS: HEPARIN 25,000 UNIT/500ML D5W 500 ML IV PRN (08:09)
[2016-09-04 08:21] LABS: ESTIMATED AVERAGE GLUCOSE 154 mg/dl; HA1C FLAG Normal (Normal)
--- NOTE | 2016-09-04 10:22 | ECHOCARDIOGRAM REPORT ---
*NOTICE TO RECEIVING REPUBLICAN AGENCY This information is strictly Confidential and protected under [place] law. [place] law prohibits you from making any further disclosure of this information unless further disclosure is expressly permitted by the written consent of the person to whom it pertains or is authorized by law. A general authorization for the release of medical or other information is not sufficient for this purpose. Hospital accepts no responsibility if the information is made available to any other person, INCLUDING THE PATIENT. Interpretation Summary * Conclusions -- * The left ventricular wall motion is normal. * The LV Ejection Fraction = 60-65%. * The left atrium is severely dilated. * Aortic valve sclerosis mild, without significant aortic valvular stenosis. * There is severe calcification of the mitral valve valve leaflet tips. * The appearance of the mitral valve is consistent with Rheumatic heart disease. * There is moderate mitral regurgitation. * There is severe mitral stenosis. * The mean diastolic pressure gradient across the mitral valve =12 mm Hg. * The calculated aortic valve area =0.73 cm squared. Procedure Details * A complete two-dimensional transthoracic echocardiogram was performed (2D, M-mode, Doppler and color flow Doppler). * A contrast injection of Definity was performed to improve assessment of LV function. * Contrast was injected into an intravenous site in the left arm. * One vial of Definity ultrasound contrast was diluted in normal saline to a total volume of 10 ml. A total of '2' ml of solution was administered during imaging. * Lot # [id number] of Definity utilized for procedure. * Expiration date AUG 02. * The attending nurse who injected the contrast agent was Mariana Ley RN. Left Ventricle * The left ventricle is normal in size. * There is normal left ventricular wall thickness. * Left ventricular systolic function is normal. * Ejection Fraction = 60-65%. * The left ventricular wall motion is normal. Right Ventricle * The right ventricle is normal size. * The right ventricular systolic function is normal as assessed by tricuspid annular plane systolic excursion (TAPSE) (normal >1.5 cm). Atria * The left atrium is severely dilated. * Right atrial size is normal. * There is no evidence of atrial septal defect, but resolution does not allow assessment for a patent foramen ovale. Mitral Valve * There is severe calcification of the mitral valve valve leaflet tips. The appearance of the mitral valve is consistent with Rheumatic heart disease. * There is severe mitral stenosis. * There is moderate mitral regurgitation. Tricuspid Valve * The tricuspid valve is normal. * There is no tricuspid stenosis. * Significant tricuspid regurgitation is absent. * Doppler findings do not suggest pulmonary hypertension. Aortic Valve * The aortic valve is trileaflet. * Aortic valve sclerosis mild, without significant aortic valvular stenosis. * Aortic stenosis is absent. * There is no significant aortic regurgitation. Pulmonic Valve * The pulmonary valve is not well seen, but the Doppler examination is normal without significant regurgitation or stenosis. Great Vessels * The aortic root and proximal ascending aorta are normal sized. Pericardium/Pleural * There is no pericardial effusion. Great Vessels * Normal inferior vena cava diameter and respiratory variation suggests normal central venous pressure. * Normal inferior vena cava size and collapsability with sniff indicates a normal right atrial pressure of 3 mmHg MMode 2D Measurements and Calculations IVSd 1.1 cm LVIDd 3.7 cm LVIDs 2.5 cm LVPWd 1.1 cm IVS/LVPW 1.0 FS 32.4 % EDV(Teich) 59.5 ml ESV(Teich) 22.9 ml EF(Teich) 61.6 % EDV(cubed) 52.2 ml ESV(cubed) 16.1 ml EF(cubed) 69.2 % LV mass(C)d 139.5 grams LV mass(C)dI 84.7 grams/m\S\2 CO(Teich) 2.3 l/min CI(Teich) 1.4 l/min/m\S\2 SV(Teich) 36.7 ml SI(Teich) 22.3 ml/m\S\2 CO(cubed) 2.3 l/min CI(cubed) 1.4 l/min/m\S\2 SV(cubed) 36.1 ml SI(cubed) 21.9 ml/m\S\2 Ao root diam 3.1 cm Ao root area 7.4 cm\S\2 ACS 1.7 cm LA dimension 3.5 cm asc Aorta Diam 3.2 cm LA/Ao 1.2 LVOT diam 2.0 cm LVOT area 3.0 cm\S\2 LVAd ap4 27.3 cm\S\2 LVLd ap4 6.8 cm EDV(MOD-sp4) 89.8 ml LVAs ap4 13.6 cm\S\2 LVLs ap4 5.3 cm ESV(MOD-sp4) 28.1 ml EF(MOD-sp4) 68.7 % LVAd ap2 21.2 cm\S\2 LVLd ap2 6.3 cm EDV(MOD-sp2) 58.2 ml LVAs ap2 11.0 cm\S\2 LVLs ap2 4.9 cm ESV(MOD-sp2) 20.3 ml EF(MOD-sp2) 65.1 % CO(MOD-sp4) 3.9 l/min CI(MOD-sp4) 2.4 l/min/m\S\2 SV(MOD-sp4) 61.7 ml SI(MOD-sp4) 37.4 ml/m\S\2 CO(MOD-sp2) 2.4 l/min CI(MOD-sp2) 1.5 l/min/m\S\2 SV(MOD-sp2) 37.9 ml SI(MOD-sp2) 23.0 ml/m\S\2 Doppler Measurements and Calculations MV E max cleve 220.8 cm/sec MV A max cleve 204.9 cm/sec MV E/A 1.1 MV V2 max 233.7 cm/sec MV max PG 21.8 mmHg MV V2 mean 171.7 cm/sec MV mean PG 12.7 mmHg MV V2 VTI 93.7 cm MVA(VTI) 0.73 cm\S\2 MV dec slope 415.9 cm/sec\S\2 MV dec time 0.65 sec Ao V2 max 134.7 cm/sec Ao max PG 7.3 mmHg Ao max PG (full) 3.4 mmHg DORIAN(V,A) 2.2 cm\S\2 DORIAN(V,D) 2.2 cm\S\2 LV V1 max PG 3.8 mmHg LV V1 mean PG 2.3 mmHg LV V1 max 97.5 cm/sec LV V1 mean 71.4 cm/sec LV V1 VTI 22.4 cm MR PISA 0.77 cm\S\2 MR PISA radius 0.35 cm SV(LVOT) 68.1 ml SI(LVOT) 41.3 ml/m\S\2 PA V2 max 70.8 cm/sec PA max PG 2.0 mmHg PA acc slope 374.8 cm/sec\S\2 PA acc time 0.15 sec TR max cleve 258.3 cm/sec PA pr(Accel) 10.9 mmHg
[2016-09-04] MEDS ORDERED: POTASSIUM CHLORIDE 10 MEQ TABCR PO STA (10:49)
--- NOTE | 2016-09-04 10:55 | Cardiology Follow-Up ---
Subjective General Date of Service: Sep 04, 2016. Chief Complaint: follow up chest pain, tachycardia Pt evaluation today including: conversation w/ patient, conversation w/ family , physical exam History of Present Illness The patient is a 76 year old female seen in follow up. She feels well. She denies chest pain. Patient had no recurrent of the SVT since I had seen her in the ED. She received two doses of oral metoprolol tartrate thus far. 2/ 3 verapamil doses were held for SBP < 100 mm Hg. Her chest pain has resolved. EKG this am with SR , first degree AV block. Telemetry overnight revealed SR and SB with no long pauses and no recurrence of the tachycardia. Heparin added overnight when her troponin trended up. Allergies Coded Allergies: Lisinopril (Unverified Allergy, Unknown, COUGHING, 09/03/16) Social History Smoking Status: Never Smoker Hx Tobacco Use In Past Year?: No Hx Alcohol Use - Type And Amou: No Hx Substance Use - Type And Am: No Problem List Medical Problems: (1) Hypokalemia Status: Acute (2) Left facial numbness Status: Acute (3) SVT (supraventricular tachycardia) Status: Acute (4) Syncope Status: Acute Physical Exam Vital Signs Last Vital Signs Documentation Date Time Temp Pulse Resp B/P Pulse Ox O2 Delivery O2 Flow Rate FiO2 09/04/16 07:38 36.6 64 16 107/68 96 Room Air 09/03/16 12:45 4.0 Physical Exam Constitutional: Level of Distress: NAD ENMT: normal ENT inspection Neck: supple Lungs: Auscultation: no wheezing, no rales/crackles, no rhonchi Cardiovascular: Heart Auscultation: RRR, pertinent finding (1/6 diastolic murmur ) Extremities: no edema Neurologic: Gait & Station: pertinent finding (no focal neurologic deficits ) Assessment and Plan Assessment and Plan Impression: 1. NSTEMI , due to supply demand mismatch in setting of PSVT, tachycardic up to ~180 bmp, in setting of severe MS. -Pre hospital EKG performed 09/03/16 documenting the SVT is scanned to [facility] as " monitor strip 09/04/16, 8:20). -presentation not consistent with acute coronary plaque rupture. -Anginal symptoms and ischemic EKG changes resolved with resolution of the tachycardia. -As expected troponin subsequently trended up, as pt was tachycardia for over an hour prior to arrival of EMS 2. History of Rheumatic Fever , age 17, resultant Rheumatic heart disease. Severe MS based on TTE, moderate MR. 3. History of dyslipidemia, on statin and gemfibrozil therapy Plan: Continue verapamil and metoprolol for SVT. DC IV fluids. NPO after MN except medications for RODRIGO planned 09/05/16 for work up , MV replacement may be necessary. Anticoagulation would be necessary if post op if valve is replace , will monitor anemia. Patient agreeable. DC heparin gtt as pt's NSTEM not felt to be due to coronary plaque rupture. She may have underlying CAD, but anticoagulation not necessary at present. Will transition to lovenox or SQ heparin for DVT prophylaxis after RODRIGO completed. Laboratory Results Last 24 Hours Test 09/03/16 12:35 09/03/16 12:45 09/03/16 15:50 09/03/16 20:21 White Blood Count 9.40 K/uL Red Blood Count 3.82 M/uL Hemoglobin 11.6 g/dL Hematocrit 33.7 % Mean Corpuscular Volume 88.2 fL Mean Corpuscular Hemoglobin 30.4 pg Mean Corpuscular Hemoglobin Concent 34.4 g/dl Platelet Count 282 K/uL Mean Platelet Volume 10.7 fL Neutrophils (%) (Auto) 57.5 % Lymphocytes (%) (Auto) 30.3 % Monocytes (%) (Auto) 8.8 % Eosinophils (%) (Auto) 2.3 % Basophils (%) (Auto) 0.9 % Neutrophils # (Auto) 5.40 K/uL Lymphocytes # (Auto) 2.85 K/uL Monocytes # (Auto) 0.83 K/uL Eosinophils # (Auto) 0.22 K/uL Basophils # (Auto) 0.08 K/uL RDW Standard Deviation 45.2 fL RDW Coefficient of Variation 14.0 % Immature Granulocyte % (Auto) 0.2 % Immature Granulocyte # (Auto) 0.02 K/uL Sodium Level 145 mmol/L Potassium Level 2.8 mmol/L Chloride Level 109 mmol/L Carbon Dioxide Level 19 mmol/L Anion Gap 17.0 mmol/L 20.0 mmol/L Blood Urea Nitrogen 24 mg/dl Creatinine 1.20 mg/dl Est Creatinine Clear Calc Drug Dose 35.6 ml/min Estimated GFR () 51.2 Estimated GFR (Non- 44.2 BUN/Creatinine Ratio 19.7 Random Glucose 163 mg/dl Calcium Level 9.0 mg/dl Magnesium Level 1.8 mg/dl Total Creatine Kinase 55 U/L Creatine Kinase MB 3.3 ng/ml Creatine Kinase MB Ratio 6.0 Troponin I 0.037 ng/ml Thyroid Stimulating Hormone (TSH) 5.430 uIu/ml Bedside Hemoglobin 10.9 g/dl Bedside Hematocrit 32 % Bedside Sodium 142 mEq/L Bedside Potassium 2.7 mEq/L Bedside Chloride 107 mEq/L Bedside Total CO2 19 mEq/l Bedside Blood Urea Nitrogen 24 mg/dl Bedside Creatinine 1.0 mg/dl Bedside Glucose (other) 121 mg/dl Bedside Ionized Calcium ([place]) 1.25 mmol/l Bedside Glucose 137 mg/dl 129 mg/dl Test 09/03/16 20:35 09/03/16 21:55 09/03/16 23:20 09/04/16 06:16 Hemoglobin 10.5 g/dL 9.9 g/dL 10.1 g/dL Hematocrit 30.6 % 29.3 % 30.2 % Sodium Level 142 mmol/L 143 mmol/L Potassium Level 3.4 mmol/L 3.7 mmol/L Chloride Level 112 mmol/L 112 mmol/L Carbon Dioxide Level 18 mmol/L 18 mmol/L Anion Gap 12.0 mmol/L 13.0 mmol/L Blood Urea Nitrogen 22 mg/dl 19 mg/dl Creatinine 1.30 mg/dl 1.10 mg/dl Est Creatinine Clear Calc Drug Dose 32.9 ml/min 39.0 ml/min Estimated GFR () 46.5 56.9 Estimated GFR (Non- 40.1 49.1 BUN/Creatinine Ratio 16.6 16.9 Random Glucose 119 mg/dl 134 mg/dl Lactic Acid Level 1.1 mmol/L Calcium Level 8.6 mg/dl 8.4 mg/dl Magnesium Level 1.8 mg/dl 2.3 mg/dl Total Creatine Kinase 97 U/L 82 U/L Creatine Kinase MB 19.7 ng/ml 14.1 ng/ml Creatine Kinase MB Ratio 20.3 17.2 Troponin I 2.060 ng/ml 2.080 ng/ml White Blood Count 9.78 K/uL 11.05 K/uL Red Blood Count 3.33 M/uL 3.43 M/uL Mean Corpuscular Volume 88.0 fL 88.0 fL Mean Corpuscular Hemoglobin 29.7 pg 29.4 pg Mean Corpuscular Hemoglobin Concent 33.8 g/dl 33.4 g/dl Platelet Count 249 K/uL 255 K/uL Mean Platelet Volume 10.9 fL 10.9 fL Neutrophils (%) (Auto) 52.0 % 61.6 % Lymphocytes (%) (Auto) 40.2 % 29.0 % Monocytes (%) (Auto) 5.1 % 6.9 % Eosinophils (%) (Auto) 2.1 % 1.9 % Basophils (%) (Auto) 0.4 % 0.4 % Neutrophils # (Auto) 5.08 K/uL 6.82 K/uL Lymphocytes # (Auto) 3.93 K/uL 3.20 K/uL Monocytes # (Auto) 0.50 K/uL 0.76 K/uL Eosinophils # (Auto) 0.21 K/uL 0.21 K/uL Basophils # (Auto) 0.04 K/uL 0.04 K/uL RDW Standard Deviation 45.1 fL 45.4 fL RDW Coefficient of Variation 14.0 % 14.0 % Immature Granulocyte % (Auto) 0.2 % 0.2 % Immature Granulocyte # (Auto) 0.02 K/uL 0.02 K/uL Prothrombin Time 11.2 SECONDS Prothromb Time International Ratio 1.0 Activated Partial Thromboplast Time 26.4 SECONDS 31.6 SECONDS Partial Thromboplastin Ratio 1.0 1.2 Estimated Average Glucose 154 mg/dl Hemoglobin A1c 7.0 % Triglycerides Level 197 mg/dl Cholesterol Level 131 mg/dl HDL Cholesterol 35 mg/dl LDL Cholesterol, Calculated 57 mg/dl VLDL Cholesterol, Calculated 39 mg/dl Cholesterol/HDL Ratio 3.7 Test 09/04/16 06:39 Bedside Glucose 137 mg/dl
--- NOTE | 2016-09-04 22:35 | Progress Note ---
Internal Med Progress Note Date of Service: Sep 04, 2016. Provider Documentation: SUBJECTIVE: chest pain has resolved no SOB , has persistent FAROOQ no cough ,no fever or chills OBJECTIVE: Vital Signs-as noted below Exam: General-no sign of distress Eyes-sclera non icteric , PERRLA/EOMI ENT-NAD Neck-no thyromegaly Lungs-CTA Heart-regular Tachy Abdomen-soft, non tender Extremities-no lower ext edema Neuro-no focal deficit Lab data as noted below. ASSESSMENT & PLAN: SVT : due to severe valvular heart disease appreciate cardiology input pt given Lopressor , Cardizem remains in sinus with rate controlled , chest discomfort, palpitation has resolved NSTEMI: elevation of troponin ~2 , due to above on evidence of acute coronary thrombosis ECHO : * The left atrium is severely dilated. * Aortic valve sclerosis mild, without significant aortic valvular stenosis. * There is severe calcification of the mitral valve valve leaflet tips. * The appearance of the mitral valve is consistent with Rheumatic heart disease. * There is moderate mitral regurgitation. * There is severe mitral stenosis. * The mean diastolic pressure gradient across the mitral valve =12 mm Hg. * The calculated aortic valve area =0.73 cm squared. SEVERE MITRAL STENOSIS : echo as above scheduled for RODRIGO tomorrow for valvular assessment will need referral to tertiary care center for Mitral valve replacement depending on RODRIGO finding DYSLIPIDEMIA : cont statin therapy DVT PROPHYLAXIS sub q heparin DISPOSITION to home when medically stable Vital Signs: Date Time Temp Pulse Resp B/P Pulse Ox O2 Delivery O2 Flow Rate FiO2 09/04/16 20:00 Room Air 09/04/16 18:50 37.7 74 20 110/67 92 Room Air 09/04/16 16:03 36.5 72 20 113/69 95 Room Air 09/04/16 16:00 94 Room Air 09/04/16 12:00 Room Air 09/04/16 11:15 36.7 61 16 108/62 94 Room Air 09/04/16 08:00 Room Air 09/04/16 07:38 36.6 64 16 107/68 96 Room Air 09/04/16 04:02 36.4 61 18 92/55 95 Room Air 09/04/16 04:00 Room Air 09/04/16 00:03 36.3 60 20 98/62 93 Room Air 09/04/16 00:00 Room Air Lab Results: Results Past 24 Hours Test 09/04/16 06:16 09/04/16 06:39 09/04/16 11:44 09/04/16 16:08 Range/Units White Blood Count 11.05 4.8-10.8 K/uL Red Blood Count 3.43 4.2-5.4 M/uL Hemoglobin 10.1 12.0-16.0 g/dL Hematocrit 30.2 37-47 % Mean Corpuscular Volume 88.0 80-100 fL Mean Corpuscular Hemoglobin 29.4 25-34 pg Mean Corpuscular Hemoglobin Concent 33.4 32-36 g/dl Platelet Count 255 130-400 K/uL Mean Platelet Volume 10.9 7.4-10.4 fL Neutrophils (%) (Auto) 61.6 % Lymphocytes (%) (Auto) 29.0 % Monocytes (%) (Auto) 6.9 % Eosinophils (%) (Auto) 1.9 % Basophils (%) (Auto) 0.4 % Neutrophils # (Auto) 6.82 1.4-6.5 K/uL Lymphocytes # (Auto) 3.20 1.2-3.4 K/uL Monocytes # (Auto) 0.76 0.11-0.59 K/uL Eosinophils # (Auto) 0.21 0-0.5 K/uL Basophils # (Auto) 0.04 0-0.2 K/uL RDW Standard Deviation 45.4 36.4-46.3 fL RDW Coefficient of Variation 14.0 11.5-14.5 % Immature Granulocyte % (Auto) 0.2 % Immature Granulocyte # (Auto) 0.02 0.00-0.02 K/uL Activated Partial Thromboplast Time 31.6 21.0-31.0 SECONDS Partial Thromboplastin Ratio 1.2 Sodium Level 143 136-145 mmol/L Potassium Level 3.7 3.5-5.1 mmol/L Chloride Level 112 98-107 mmol/L Carbon Dioxide Level 18 21-32 mmol/L Anion Gap 13.0 3-11 mmol/L Blood Urea Nitrogen 19 7-18 mg/dl Creatinine 1.10 0.60-1.20 mg/dl Est Creatinine Clear Calc Drug Dose 39.0 ml/min Estimated GFR () 56.9 Estimated GFR (Non- 49.1 BUN/Creatinine Ratio 16.9 10-20 Random Glucose 134 70-99 mg/dl Estimated Average Glucose 154 mg/dl Hemoglobin A1c 7.0 4.5-5.6 % Calcium Level 8.4 8.5-10.1 mg/dl Magnesium Level 2.3 1.8-2.4 mg/dl Total Creatine Kinase 82 26-192 U/L Creatine Kinase MB 14.1 0.5-3.6 ng/ml Creatine Kinase MB Ratio 17.2 0-3.0 Troponin I 2.080 0-0.045 ng/ml Triglycerides Level 197 0-150 mg/dl Cholesterol Level 131 0-200 mg/dl HDL Cholesterol 35 mg/dl LDL Cholesterol, Calculated 57 mg/dl VLDL Cholesterol, Calculated 39 mg/dl Cholesterol/HDL Ratio 3.7 Bedside Glucose 137 144 128 70-90 mg/dl Test 09/04/16 20:00 Range/Units Bedside Glucose 142 70-90 mg/dl
[2016-09-05] VITALS (26 sets, daily range): BP systolic 96–148; BP diastolic 42–75; PULSE 58–73; TEMP 36.5–37; O2SAT 92–97
[2016-09-05] MEDS: VERAPAMIL HCL 40 MG TAB PO SCH ×5 (00:21→23:55)
--- NOTE | 2016-09-05 06:55 | Clinical Documentation Query ---
KYAW Mac : CLINICAL DOCUMENTATION QUERY Patient is 74 year old female admitted for SVT. A potential discrepancy of provider documentation exists within the medical record. Initial serum troponin 0.037 ng/ml with subsequent rise to 2.08 ng/ml. Cardiology consultation documentation includes "NSTEMI , due to supply demand mismatch in setting of PSVT" and "presentation not consistent with acute coronary plaque rupture". Attending documentation includes "elevation of troponin ~2, due to above on evidence of acute coronary thrombosis". Question whether the word "on" in previous sentence was intended to be "no" as the former suggests supply demand mismatch whereas the latter suggests acute coronary thrombosis. Thus, seeking clarification of type I versus type II IL. Thank you. In your clinical opinion is this patient being managed for: ( X ) Type II (supply-demand mismatch) NSTEMI secondary to SVT ( ) Other explanation of clinical findings (Please Explain) ( ) Unable to determine (Please Define) ( ) Need to Discuss ( ) Not Agree The medical record reflects the following clinical findings, treatment, and risk factors. Clinical Indicators: As above Treatment: Telemetry, serial cardiac enzymes Risk Factors: Age, severe MS, SVT Please clarify and document your clinical opinion in the progress notes and discharge summary. Terms such as "probable", "suspected", "likely", "questionable", "possible", or "still to be ruled out" are acceptable. IF IN AGREEMENT, YOU MUST DOCUMENT ABOVE DIAGNOSTIC STATEMENT IN DAILY PROGRESS NOTES AND DISCHARGE SUMMARY. This document is not part of the patient's record. Thank You, Melecio Wiley, RN [phone]
[2016-09-05] MEDS: INSULIN ASPART 100 UNITS/ML 3 ML PEN SC SCH ×4 (07:00→20:48)
[2016-09-05 07:20] LABS: BASO % 0.4 %; BASO ABS # 0.05 K/uL (0-0.2); COMPLETE YES; EOS % 2.6 %; HEMATOCRIT 33.7 % (37-47); IG% 0.3 %; LYMPH ABS # 3.65 K/uL (1.2-3.4); MEAN CELL VOLUME 87.3 fL (80-100); MEAN CORPUSCULAR HEMOGLOBIN 29.8 pg (25-34); MEAN CORPUSCULAR HGB CONC 34.1 g/dl (32-36); MONO % 9.5 %; NEUT % 55.2 %; PLATELET COUNT 276 K/uL (130-400); RED BLOOD COUNT 3.86 M/uL (4.2-5.4); WHITE BLOOD COUNT 11.42 K/uL (4.8-10.8)
[2016-09-05 07:48] LABS: BUN/CREATININE RATIO 16.9 (10-20); CREATININE 1.1 mg/dl (0.60-1.20); MAGNESIUM 2.4 mg/dl (1.8-2.4); POTASSIUM 3.7 mmol/L (3.5-5.1)
[2016-09-05] MEDS ORDERED: BENZOCAIN/TETRACA/BUTAM SPRAY 200 APPLN/20 GM SPRY ONE (08:10)
[2016-09-05] MEDS ORDERED: CANNULA ONE ×2 (08:11)
[2016-09-05] MEDS ORDERED: LIDOCAINE HCL 2% VISC SOLN 20 ML UDC ONE (08:11)
[2016-09-05] MEDS ORDERED: FENTANYL CITRATE INJ 50 MCG/1 ML 2 ML VIAL ONE (08:11)
[2016-09-05] MEDS ORDERED: MIDAZOLAM HCL 1 MG/ML 2ML VIAL ONE (08:11)
--- NOTE | 2016-09-05 08:16 | Procedure Note ---
Pre-Mod Sedation Assessment General Date of Moderate Sedation: Sep 05, 2016. Vital Signs: Vital Signs Past 12 Hours Date Time Temp Pulse Resp B/P Pulse Ox O2 Delivery O2 Flow Rate FiO2 09/05/16 07:41 36.9 61 18 115/66 95 Room Air 09/05/16 07:30 36.9 61 18 115/66 95 Room Air 09/05/16 04:00 94 Room Air 09/05/16 03:46 36.5 73 18 112/68 94 Room Air 09/05/16 00:01 94 Room Air 09/04/16 23:56 36.9 74 18 100/63 94 Room Air Review Cardiovascular: regular rate, rhythm, no edema, + diastolic murmur Abdomen: non tender Lungs: chest non-tender, lungs clear Airway Class: II Pre-Sedation Airway Assessment Oral Cavity: WNL Able to Visualize Vocal Cords: No Short Thick Neck: No Hx of Sleep Apnea: No Smoking Status: Never Smoker Mallampati Classification: Class II ASA Classification: Class III Procedure Planning Contraindications-for Mod Sed: None Yes Notes The planned sedation has been discussed with the patient and consent obtained. I have identified the patient, determined the appropriateness of sedation and have assessed the patient immediately prior to the procedure. All medicine(s) and interventions are by my order.
--- NOTE | 2016-09-05 08:57 | Procedure Note ---
Post-Mod Sedation Assessment General Date of Moderate Sedation Sep 05, 2016. Vital Signs: Vital Signs Past 12 Hours Date Time Temp Pulse Resp B/P Pulse Ox O2 Delivery O2 Flow Rate FiO2 09/05/16 07:41 36.9 61 18 115/66 95 Room Air 09/05/16 07:39 63 16 121/48 93 Room Air 09/05/16 07:30 36.9 61 18 115/66 95 Room Air 09/05/16 04:00 94 Room Air 09/05/16 03:46 36.5 73 18 112/68 94 Room Air 09/05/16 00:01 94 Room Air 09/04/16 23:56 36.9 74 18 100/63 94 Room Air Review - Discharge Criteria Vital Signs Stable: Yes Alert/Oriented/Conversant: Yes Returned to Baseline Mental St: Yes Nausea Absent/Minimal: Yes Pain/Discomfort/Absent/Minimal: Yes Normal/Baseline Respirations: Yes Active Bleeding?: No Pt Received D/C Instructions: N/A Prescriptions Given: None Specific Proced. D/C Criteria Distal Pulses Present (Cardiac: N/A Groin site assessed-Card Cath: N/A Voided Prior To Discharge: N/A Discharged Patients Adult Escort/Transportation: Yes
--- NOTE | 2016-09-05 09:00 | Cardiology Procedure Brief Nt ---
Preliminary Cardiology Note Procedure Date Sep 05, 2016. Pre-Procedure Diagnosis severe mitral stenosis Post-Procedure Diagnosis Severe mitral stenosis Procedure(s) Performed RODRIGO Committee Member Lazaro Walden DO Motion Picture Projectionist Apprentice(s) KEV Umanzor Estimated Blood Loss none Preliminary Findings Severe mitral stenosis. Severe left atrial enlargement No left atrial appendage thrombus Mild to moderate mitral regurgitation. Recommendations Continue medications for SVT. Will likely proceed with cardiac catheterization this admission, and plan for outpatient CT surgery consultation for valve replacement surgery Specimens none Anesthesia Topical cetacaine, viscous lidocaine,Versed 1 mg IV Complication(s) None Disposition PCU
--- NOTE | 2016-09-05 11:14 | Cardiology Follow-Up ---
Subjective General Date of Service: Sep 05, 2016. Chief Complaint: follow up chest pain, tachycardia Pt evaluation today including: conversation w/ patient, conversation w/ family , physical exam History of Present Illness The patient is a 76 year old female seen in follow up prior to / during/ and after RODRIGO today. Pt without any recurrent chest pain or tachycardia overnight. She has received her oral verapamil and metoprolol since my visit with her yesterday. Allergies Coded Allergies: Lisinopril (Unverified Allergy, Unknown, COUGHING, 09/03/16) Social History Smoking Status: Never Smoker Hx Tobacco Use In Past Year?: No Hx Alcohol Use - Type And Amou: No Hx Substance Use - Type And Am: No Problem List Medical Problems: (1) Hypokalemia Status: Acute (2) Left facial numbness Status: Acute (3) SVT (supraventricular tachycardia) Status: Acute (4) Syncope Status: Acute Physical Exam Vital Signs Last Vital Signs Documentation Date Time Temp Pulse Resp B/P Pulse Ox O2 Delivery O2 Flow Rate FiO2 09/05/16 11:03 36.5 72 18 118/64 95 Room Air 09/05/16 08:51 2.0 Physical Exam Constitutional: Level of Distress: NAD ENMT: normal ENT inspection Neck: supple Lungs: Auscultation: no wheezing, no rales/crackles, no rhonchi Cardiovascular: Heart Auscultation: RRR, pertinent finding (1/6 diastolic murmur ) Extremities: no edema Neurologic: Gait & Station: pertinent finding (no focal neurologic deficits ) Assessment and Plan Assessment and Plan Impression: 1. NSTEMI , due to supply demand mismatch in setting of PSVT, tachycardic up to ~180 bmp, in setting of severe MS. -Pre hospital EKG performed 09/03/16 documenting the SVT is scanned to [employer] as " monitor strip 09/04/16, 8:20). -presentation not consistent with acute coronary plaque rupture. -Anginal symptoms and ischemic EKG changes resolved with resolution of the tachycardia. -As expected troponin subsequently trended up, as pt was tachycardia for over an hour prior to arrival of EMS 2. History of Rheumatic Fever , age 17, resultant Rheumatic heart disease. Severe MS based on TTE/ RODRIGO, mild to moderate MR. 3. History of dyslipidemia, on statin and gemfibrozil therapy 4. Past stroke for which she is on clopidogrel. Plan: Continue verapamil and metoprolol for SVT. Pt to remain in hospital for planned left and right heart cath 09/07/16, for further work up. Plan CT surgery consult for MV replacement + /- CABG if indicated. Start lovenox for DVT prophylaxis. Laboratory Results Last 24 Hours Test 09/04/16 11:44 09/04/16 16:08 09/04/16 20:00 09/05/16 06:37 Bedside Glucose 144 mg/dl 128 mg/dl 142 mg/dl 132 mg/dl Test 09/05/16 06:55 White Blood Count 11.42 K/uL Red Blood Count 3.86 M/uL Hemoglobin 11.5 g/dL Hematocrit 33.7 % Mean Corpuscular Volume 87.3 fL Mean Corpuscular Hemoglobin 29.8 pg Mean Corpuscular Hemoglobin Concent 34.1 g/dl Platelet Count 276 K/uL Mean Platelet Volume 11.0 fL Neutrophils (%) (Auto) 55.2 % Lymphocytes (%) (Auto) 32.0 % Monocytes (%) (Auto) 9.5 % Eosinophils (%) (Auto) 2.6 % Basophils (%) (Auto) 0.4 % Neutrophils # (Auto) 6.31 K/uL Lymphocytes # (Auto) 3.65 K/uL Monocytes # (Auto) 1.08 K/uL Eosinophils # (Auto) 0.30 K/uL Basophils # (Auto) 0.05 K/uL RDW Standard Deviation 43.8 fL RDW Coefficient of Variation 13.8 % Immature Granulocyte % (Auto) 0.3 % Immature Granulocyte # (Auto) 0.03 K/uL Sodium Level 142 mmol/L Potassium Level 3.7 mmol/L Chloride Level 111 mmol/L Carbon Dioxide Level 19 mmol/L Anion Gap 12.0 mmol/L Blood Urea Nitrogen 19 mg/dl Creatinine 1.10 mg/dl Est Creatinine Clear Calc Drug Dose 38.8 ml/min Estimated GFR () 56.9 Estimated GFR (Non- 49.1 BUN/Creatinine Ratio 16.9 Random Glucose 125 mg/dl Calcium Level 9.0 mg/dl Magnesium Level 2.4 mg/dl
[2016-09-05] MEDS: PRAVASTATIN SOD 20 MG TAB PO SCH (11:15)
[2016-09-05] MEDS: METOPROLOL TARTRATE 25 MG TAB PO SCH ×2 (11:16→20:49)
[2016-09-05] MEDS: GEMFIBROZIL 600 MG TAB PO SCH ×2 (11:16→20:49)
[2016-09-05] MEDS: CLOPIDOGREL BISULFATE 75 MG TAB PO SCH (11:16)
[2016-09-05] MEDS: PANTOprazole SOD 40 MG TAB PO SCH (11:16)
[2016-09-05] MEDS ORDERED: ENOXAPARIN 40 MG/0.4 ML SYR SQ ONE (12:00)
--- NOTE | 2016-09-05 16:24 | Progress Note ---
Subjective Date of Service: Sep 05, 2016. Subjective Pt evaluation today including: conversation w/ patient, physical exam, lab review, review of studies, review of inpatient medication list Saw/examined the patient in room 222 had her RODRIGO this morning; no chest pain or palpitations noted She states she feels fine today good PO intake Problem List Medical Problems: (1) Hypokalemia Status: Acute (2) Left facial numbness Status: Acute (3) SVT (supraventricular tachycardia) Status: Acute (4) Syncope Status: Acute Review of Systems Constitutional: No chills, No fever Respiratory: No shortness of breath Cardiac: No chest pain Abdomen: No diarrhea, No nausea, No pain, No vomiting Heme: No abnormal bleeding/bruising Medications Current Inpatient Medications Medications (Trade) Dose Ordered Sig/Tito Route Start Time Stop Time Status Last Admin Dose Admin Verapamil HCl (Isoptin Tab) 40 mg Q6 PO 09/03/16 18:00 10/03/16 17:59 09/05/16 11:16 40 MG Metoprolol Tartrate (Lopressor Tab) 25 mg BID PO 09/04/16 09:00 10/04/16 08:59 09/05/16 11:16 25 MG Clopidogrel Bisulfate (plAVix TAB) 75 mg QAM PO 09/04/16 09:00 10/04/16 08:59 09/05/16 11:16 75 MG Gemfibrozil (Lopid Tab) 600 mg BID PO 09/03/16 21:00 10/03/16 20:59 09/05/16 11:16 600 MG Pravastatin Sodium (Pravachol Tab) 10 mg DAILY PO 09/04/16 09:00 10/04/16 08:59 09/05/16 11:15 10 MG Pantoprazole Sodium (Protonix Tab) 20 mg DAILY PO 09/04/16 09:00 10/04/16 08:59 09/05/16 11:16 20 MG Insulin Aspart (novoLOG ASPART) SLIDING SCALE G... ACHS SC 09/03/16 16:15 10/03/16 16:14 09/04/16 11:00 1 UNITS Acetaminophen (Tylenol Tab) 650 mg Q4H PRN PO 09/03/16 14:00 10/03/16 13:59 09/04/16 03:30 650 MG Al Hydrox/Mg Hydrox/Simethicone (Maalox Max Susp) 15 ml Q4H PRN PO 09/03/16 14:00 10/03/16 13:59 Magnesium Hydroxide (Milk Of Magnesia Susp) 30 ml Q12H PRN PO 09/03/16 14:00 10/03/16 13:59 Ondansetron HCl (Zofran Inj) 4 mg Q6H PRN IV 09/03/16 14:00 10/03/16 13:59 Nitroglycerin (Nitrostat Tab) 0.4 mg UD PRN SL 09/03/16 14:00 10/03/16 13:59 Glucose (Glucose 40% Gel) 15-30 GRAMS 15 GRAMS... UD PRN PO 09/03/16 15:30 10/03/16 15:29 Glucose (Glucose Chew Tab) 4-8 Tablets 4 Tabl... UD PRN PO 09/03/16 15:30 10/03/16 15:29 Dextrose (Dextrose 50% 50ML Syringe) 25-50ML OF 50% DW IV FOR... UD PRN IV 09/03/16 15:30 10/03/16 15:29 Glucagon (Glucagon Inj) 1 mg UD PRN SQ 09/03/16 15:30 10/03/16 15:29 Enoxaparin Sodium (Lovenox Inj) 40 mg QAM SQ 09/06/16 09:00 10/06/16 08:59 Objective Vital Signs Date Time Temp Pulse Resp B/P Pulse Ox O2 Delivery O2 Flow Rate FiO2 09/05/16 15:13 36.6 62 16 96/56 95 Room Air 09/05/16 12:00 Room Air 09/05/16 11:25 64 16 108/51 95 Room Air 09/05/16 11:03 36.5 72 18 118/64 95 Room Air 09/05/16 10:25 63 16 115/67 93 Room Air 09/05/16 09:55 61 16 113/67 92 Room Air 09/05/16 09:40 36.6 61 16 105/62 92 Room Air 09/05/16 09:31 60 24 114/43 93 Room Air 09/05/16 09:21 58 14 121/45 95 Room Air 09/05/16 09:11 61 12 116/46 93 Room Air 09/05/16 09:00 62 21 115/42 93 Room Air 09/05/16 08:51 62 22 114/63 97 Nasal Cannula 2.0 09/05/16 08:50 67 21 129/54 97 Nasal Cannula 2.0 09/05/16 08:45 65 22 130/57 96 Nasal Cannula 2.0 09/05/16 08:40 66 24 134/55 96 Nasal Cannula 2.0 09/05/16 08:35 67 25 142/64 95 Nasal Cannula 2.0 09/05/16 08:30 71 14 148/62 95 Nasal Cannula 2.0 09/05/16 08:29 Nasal Cannula 2.0 09/05/16 08:25 73 17 135/70 96 Nasal Cannula 2.0 09/05/16 07:45 Room Air 09/05/16 07:41 36.9 61 18 115/66 95 Room Air 09/05/16 07:39 63 16 121/48 93 Room Air 09/05/16 07:30 36.9 61 18 115/66 95 Room Air 09/05/16 04:00 94 Room Air 09/05/16 03:46 36.5 73 18 112/68 94 Room Air 09/05/16 00:01 94 Room Air 09/04/16 23:56 36.9 74 18 100/63 94 Room Air 09/04/16 20:00 Room Air 09/04/16 18:50 37.7 74 20 110/67 92 Room Air 09/04/16 16:03 36.5 72 20 113/69 95 Room Air Physical Exam General Appearance: no apparent distress Respiratory/Chest: lungs clear, normal breath sounds, no respiratory distress, no accessory muscle use Cardiovascular: regular rate, rhythm, no edema, no murmur Abdomen: normal bowel sounds, non tender, soft Extremities: normal inspection, no pedal edema Neurologic/Psychiatric: no motor/sensory deficits, alert, normal mood/affect Laboratory Results Last 24 Hours Test 09/04/16 16:08 09/04/16 20:00 09/05/16 06:37 09/05/16 06:55 Bedside Glucose 128 mg/dl 142 mg/dl 132 mg/dl White Blood Count 11.42 K/uL Red Blood Count 3.86 M/uL Hemoglobin 11.5 g/dL Hematocrit 33.7 % Mean Corpuscular Volume 87.3 fL Mean Corpuscular Hemoglobin 29.8 pg Mean Corpuscular Hemoglobin Concent 34.1 g/dl Platelet Count 276 K/uL Mean Platelet Volume 11.0 fL Neutrophils (%) (Auto) 55.2 % Lymphocytes (%) (Auto) 32.0 % Monocytes (%) (Auto) 9.5 % Eosinophils (%) (Auto) 2.6 % Basophils (%) (Auto) 0.4 % Neutrophils # (Auto) 6.31 K/uL Lymphocytes # (Auto) 3.65 K/uL Monocytes # (Auto) 1.08 K/uL Eosinophils # (Auto) 0.30 K/uL Basophils # (Auto) 0.05 K/uL RDW Standard Deviation 43.8 fL RDW Coefficient of Variation 13.8 % Immature Granulocyte % (Auto) 0.3 % Immature Granulocyte # (Auto) 0.03 K/uL Sodium Level 142 mmol/L Potassium Level 3.7 mmol/L Chloride Level 111 mmol/L Carbon Dioxide Level 19 mmol/L Anion Gap 12.0 mmol/L Blood Urea Nitrogen 19 mg/dl Creatinine 1.10 mg/dl Est Creatinine Clear Calc Drug Dose 38.8 ml/min Estimated GFR () 56.9 Estimated GFR (Non- 49.1 BUN/Creatinine Ratio 16.9 Random Glucose 125 mg/dl Calcium Level 9.0 mg/dl Magnesium Level 2.4 mg/dl Test 09/05/16 11:09 09/05/16 15:50 Bedside Glucose 118 mg/dl 118 mg/dl Assessment and Plan This is a 76 year old female with PMH of severe MS, HTN, DM2, HLD, CKD stage 3 presents with chest pain and found to have SVT NSTEMI, type II supply-demand mismatch, likely due to SVT troponin elevation of > 2, again, likely due to tachycardia was given CCB and B-blockers and this suppressed her tachycardia currently in NSR once tachycardia resolved, her chest pain also resolved RODRIGO performed today Severe mitral stenosis. Severe left atrial enlargement Severe Mitral Stenosis plan is for a cardiac catheterization on 09/07 possible surgical intervention? appreciate cardiology input HTN BP is stable continue current meds DM2 sliding scale insulin Ha1c = 7.0% DVT ppx Lovenox FULL CODE
--- NOTE | 2016-09-05 22:05 | TEE ---
*NOTICE TO RECEIVING [employer] This information is strictly Confidential and protected under [place] law. [place] law prohibits you from making any further disclosure of this information unless further disclosure is expressly permitted by the written consent of the person to whom it pertains or is authorized by law. A general authorization for the release of medical or other information is not sufficient for this purpose. Hospital accepts no responsibility if the information is made available to any other person, INCLUDING THE PATIENT. Interpretation Summary * Name: PATRIICA MC Study Date: 09/05/2016 09:09 AM BP: 114/63 mmHg * Patient Location: C.2T\S\E222\S\1 HR: 61 * : 1940 (M/d/yyyy) Gender: Female Height: 62 in * Age: 76 yrs Ethnicity: [place] Weight: 142 lb * Ordering Physician: Matthew Walden DO, [facility] * Performed By: Princess Vogt * * Reason For Study: MITRAL STENOSIS, MR, SVT * BSA: 1.7 m2 * -- Conclusions -- * The left atrium is severely dilated. * No thrombus is detected in the left atrial appendage. * No left atrial mass or thrombus visualized. * There is severe mitral stenosis. Procedure Details * The transesophageal portion of this study was personally supervised by the undersigned interpreting physician. * RODRIGO Probe #2 utilized for procedure. * The study was performed in Cardiopulmonary Department. * Time out was conducted by the physician, nurse, and environmental laboratory technician with positive identification of patient and procedure. * Informed consent for Transesophageal Echocardiogram was obtained prior to the procedure. * An intravenous line was placed. A topical anesthetic agent was used for oropharangeal anesthesia. A bite block was inserted. * The patient's vital signs, including blood pressure, heart rate, pulse oximetry and cardiac rhythm were monitored throughout the procedure . * Midazolam 1 mg administered for sedation. * The posterior oropharynx was anesthetized using a topical anesthetic spray. A bite guard was inserted. * A multifrequency, multiplane transesopheageal echocardiographic endoscope was inserted and manipulated in the standard fashion to achieve multiplane views. * The transesophageal probe was passed without difficulty. * The usual views were obtained; basal, mid-esophageal, transgastric and aortic views. * The patient tolerated the procedure well without evidence of orophangeal or esophageal trauma. * Contrast injection with agitated saline was performed. * A 2D transesophageal echocardiogram with spectral and color flow Doppler was performed. Left Ventricle * The left ventricle is normal in size. * There is normal left ventricular wall thickness. * Left ventricular systolic function is normal. * Ejection Fraction = 60-65%. * The left ventricular wall motion is normal. Right Ventricle * The right ventricle is normal in size and function. Atria * The left atrium is severely dilated. * No thrombus is detected in the left atrial appendage. * No left atrial mass or thrombus visualized. * Right atrial size is normal. * The interatrial septum is intact with no evidence for an atrial septal defect. Mitral Valve * There is severe mitral stenosis. * There is mild to moderate mitral regurgitation. Tricuspid Valve * The tricuspid valve is normal. * There is no tricuspid stenosis. * There is trace tricuspid regurgitation. Aortic Valve * The aortic valve is trileaflet. * No hemodynamically significant valvular aortic stenosis. * No aortic regurgitation is present. Pulmonic Valve * The pulmonic valve is not well seen, but is grossly normal. Great Vessels * The aortic root is normal size. * There is a moderate degree of nonmobile atheromatous disease in the descendin thoracic aorta. Pericardium * There is no pericardial effusion. Doppler Measurements and Calculations MV V2 max 264.1 cm/sec MV max PG 28.3 mmHg MV V2 mean 79.3 cm/sec MV mean PG 5.5 mmHg MV V2 VTI 38.6 cm MV P1/2t max cleve 217.8 cm/sec MV P1/2t 148.3 msec MVA(P1/2t) 1.5 cm\S\2 MV dec slope 430.1 cm/sec\S\2
[2016-09-06 03:58] VITALS: BP 104/67; PULSE 62; TEMP 36.9; O2SAT 96
[2016-09-06] MEDS: VERAPAMIL HCL 40 MG TAB PO SCH ×4 (05:44→23:47)
[2016-09-06] MEDS: INSULIN ASPART 100 UNITS/ML 3 ML PEN SC SCH ×4 (07:00→20:53)
[2016-09-06 07:31] LABS: BASO % 0.5 %; BASO ABS # 0.05 K/uL (0-0.2); COMPLETE YES; HEMATOCRIT 32.4 % (37-47); IG% 0.4 %; LYMPH % 26.2 %; LYMPH ABS # 2.69 K/uL (1.2-3.4); MEAN CELL VOLUME 86.6 fL (80-100); MEAN CORPUSCULAR HEMOGLOBIN 29.9 pg (25-34); MEAN CORPUSCULAR HGB CONC 34.6 g/dl (32-36); MEAN PLATELET VOLUME 10.9 fL (7.4-10.4); MONO % 10.6 %; NEUT % 59.3 %; PLATELET COUNT 263 K/uL (130-400); RED BLOOD COUNT 3.74 M/uL (4.2-5.4); WHITE BLOOD COUNT 10.27 K/uL (4.8-10.8)
[2016-09-06 07:51] LABS: BUN/CREATININE RATIO 18.9 (10-20); CALCIUM 8.6 mg/dl (8.5-10.1); CREATININE 0.99 mg/dl (0.60-1.20); MAGNESIUM 2.4 mg/dl (1.8-2.4); POTASSIUM 3.8 mmol/L (3.5-5.1)
[2016-09-06 08:01] VITALS: BP 99/54; PULSE 64; TEMP 36.6; O2SAT 96
[2016-09-06] MEDS: CLOPIDOGREL BISULFATE 75 MG TAB PO SCH (08:05)
[2016-09-06] MEDS: GEMFIBROZIL 600 MG TAB PO SCH ×2 (08:05→20:53)
[2016-09-06] MEDS: METOPROLOL TARTRATE 25 MG TAB PO SCH ×2 (08:06→20:53)
[2016-09-06] MEDS: PRAVASTATIN SOD 20 MG TAB PO SCH (08:06)
[2016-09-06] MEDS: PANTOprazole SOD 40 MG TAB PO SCH (08:06)
[2016-09-06] MEDS ORDERED: ENOXAPARIN 40 MG/0.4 ML SYR SQ SCH (09:00)
[2016-09-06 11:01] VITALS: BP 120/69; PULSE 55; TEMP 36.7; O2SAT 94
[2016-09-06 15:39] VITALS: BP 121/66; PULSE 69; TEMP 36.5; O2SAT 96
--- NOTE | 2016-09-06 16:57 | Cardiology Follow-Up ---
Subjective General Date of Service: Sep 06, 2016. Chief Complaint: follow up chest pain, tachycardia Pt evaluation today including: conversation w/ patient, physical exam History of Present Illness The patient is a 76 year old female seen in follow up. Patient feeling well. Telemetry reveals no SVT overnight, last episode was 09/05 0:45 am , brief joaquim of ~10 beats at 145 bpm. Allergies Coded Allergies: Lisinopril (Unverified Allergy, Unknown, COUGHING, 09/03/16) Social History Smoking Status: Never Smoker Hx Tobacco Use In Past Year?: No Hx Alcohol Use - Type And Amou: No Hx Substance Use - Type And Am: No Problem List Medical Problems: (1) Hypokalemia Status: Acute (2) Left facial numbness Status: Acute (3) SVT (supraventricular tachycardia) Status: Acute (4) Syncope Status: Acute Physical Exam Vital Signs Last Vital Signs Documentation Date Time Temp Pulse Resp B/P Pulse Ox O2 Delivery O2 Flow Rate FiO2 09/06/16 15:39 36.5 69 18 121/66 96 09/06/16 12:00 Room Air 09/05/16 08:51 2.0 Physical Exam Constitutional: Level of Distress: NAD ENMT: normal ENT inspection Neck: supple Lungs: Auscultation: no wheezing, no rales/crackles, no rhonchi Cardiovascular: Heart Auscultation: RRR, pertinent finding (1/6 diastolic murmur ) Extremities: no edema Neurologic: Gait & Station: pertinent finding (no focal neurologic deficits ) Assessment and Plan Assessment and Plan Impression: 1. NSTEMI , due to supply demand mismatch in setting of PSVT, tachycardic up to ~180 bmp, in setting of severe MS. -Pre hospital EKG performed 09/03/16 documenting the SVT is scanned to [employer] as " monitor strip 09/04/16, 8:20). -presentation not consistent with acute coronary plaque rupture. -Anginal symptoms and ischemic EKG changes resolved with resolution of the tachycardia. -As expected troponin subsequently trended up, as pt was tachycardia for over an hour prior to arrival of EMS 2. History of Rheumatic Fever , age 17, resultant Rheumatic heart disease. Severe MS based on TTE/ RODRIGO, mild to moderate MR. 3. History of dyslipidemia, on statin and gemfibrozil therapy 4. Past stroke for which she is on clopidogrel. Plan: Continue verapamil and metoprolol for SVT. Pt to remain in hospital for planned left and right heart cath 09/07/16, for further work up. Plan CT surgery consult for MV replacement + /- CABG if indicated. DVT prophylaxis: Hold lovenox am 09/07 pre cath, resume post. Laboratory Results Last 24 Hours Test 09/05/16 20:01 09/06/16 06:42 09/06/16 06:53 09/06/16 11:09 Bedside Glucose 129 mg/dl 118 mg/dl 106 mg/dl White Blood Count 10.27 K/uL Red Blood Count 3.74 M/uL Hemoglobin 11.2 g/dL Hematocrit 32.4 % Mean Corpuscular Volume 86.6 fL Mean Corpuscular Hemoglobin 29.9 pg Mean Corpuscular Hemoglobin Concent 34.6 g/dl Platelet Count 263 K/uL Mean Platelet Volume 10.9 fL Neutrophils (%) (Auto) 59.3 % Lymphocytes (%) (Auto) 26.2 % Monocytes (%) (Auto) 10.6 % Eosinophils (%) (Auto) 3.0 % Basophils (%) (Auto) 0.5 % Neutrophils # (Auto) 6.09 K/uL Lymphocytes # (Auto) 2.69 K/uL Monocytes # (Auto) 1.09 K/uL Eosinophils # (Auto) 0.31 K/uL Basophils # (Auto) 0.05 K/uL RDW Standard Deviation 43.5 fL RDW Coefficient of Variation 13.6 % Immature Granulocyte % (Auto) 0.4 % Immature Granulocyte # (Auto) 0.04 K/uL Sodium Level 142 mmol/L Potassium Level 3.8 mmol/L Chloride Level 112 mmol/L Carbon Dioxide Level 19 mmol/L Anion Gap 11.0 mmol/L Blood Urea Nitrogen 19 mg/dl Creatinine 0.99 mg/dl Est Creatinine Clear Calc Drug Dose 43.1 ml/min Estimated GFR () 64.6 Estimated GFR (Non- 55.7 BUN/Creatinine Ratio 18.9 Random Glucose 118 mg/dl Calcium Level 8.6 mg/dl Magnesium Level 2.4 mg/dl Chemistry Specimen Hemolysis Test 09/06/16 16:08 Bedside Glucose 118 mg/dl
--- NOTE | 2016-09-06 17:16 | Progress Note ---
Subjective Date of Service: Sep 06, 2016. Subjective Pt evaluation today including: conversation w/ patient, physical exam, lab review, review of studies, review of inpatient medication list Saw/examined the patient in room 222 Has no complaints, denies chest pain or palpitations, no shortness of breath Some anxiety over the cardiac cath scheduled for 09/07; but she is agreeable to it Problem List Medical Problems: (1) Hypokalemia Status: Acute (2) Left facial numbness Status: Acute (3) SVT (supraventricular tachycardia) Status: Acute (4) Syncope Status: Acute Review of Systems Constitutional: No chills, No fever Respiratory: No cough, No shortness of breath, No sputum Cardiac: No chest pain, No edema, No palpitations Abdomen: No diarrhea, No nausea, No pain, No vomiting Medications Current Inpatient Medications Medications (Trade) Dose Ordered Sig/Tito Route Start Time Stop Time Status Last Admin Dose Admin Verapamil HCl (Isoptin Tab) 40 mg Q6 PO 09/03/16 18:00 10/03/16 17:59 09/06/16 12:37 40 MG Metoprolol Tartrate (Lopressor Tab) 25 mg BID PO 09/04/16 09:00 10/04/16 08:59 09/06/16 08:06 25 MG Clopidogrel Bisulfate (plAVix TAB) 75 mg QAM PO 09/04/16 09:00 10/04/16 08:59 09/06/16 08:05 75 MG Gemfibrozil (Lopid Tab) 600 mg BID PO 09/03/16 21:00 10/03/16 20:59 09/06/16 08:05 600 MG Pravastatin Sodium (Pravachol Tab) 10 mg DAILY PO 09/04/16 09:00 10/04/16 08:59 09/06/16 08:06 10 MG Pantoprazole Sodium (Protonix Tab) 20 mg DAILY PO 09/04/16 09:00 10/04/16 08:59 09/06/16 08:06 20 MG Insulin Aspart (novoLOG ASPART) SLIDING SCALE G... ACHS SC 09/03/16 16:15 10/03/16 16:14 09/04/16 11:00 1 UNITS Acetaminophen (Tylenol Tab) 650 mg Q4H PRN PO 09/03/16 14:00 10/03/16 13:59 09/04/16 03:30 650 MG Al Hydrox/Mg Hydrox/Simethicone (Maalox Max Susp) 15 ml Q4H PRN PO 09/03/16 14:00 10/03/16 13:59 Magnesium Hydroxide (Milk Of Magnesia Susp) 30 ml Q12H PRN PO 09/03/16 14:00 10/03/16 13:59 Ondansetron HCl (Zofran Inj) 4 mg Q6H PRN IV 09/03/16 14:00 10/03/16 13:59 Nitroglycerin (Nitrostat Tab) 0.4 mg UD PRN SL 09/03/16 14:00 10/03/16 13:59 Glucose (Glucose 40% Gel) 15-30 GRAMS 15 GRAMS... UD PRN PO 09/03/16 15:30 10/03/16 15:29 Glucose (Glucose Chew Tab) 4-8 Tablets 4 Tabl... UD PRN PO 09/03/16 15:30 10/03/16 15:29 Dextrose (Dextrose 50% 50ML Syringe) 25-50ML OF 50% DW IV FOR... UD PRN IV 09/03/16 15:30 10/03/16 15:29 Glucagon (Glucagon Inj) 1 mg UD PRN SQ 09/03/16 15:30 10/03/16 15:29 Enoxaparin Sodium (Lovenox Inj) 40 mg QAM SQ 09/06/16 09:00 10/06/16 08:59 Future Hold 09/06/16 08:08 40 MG Objective Vital Signs Date Time Temp Pulse Resp B/P Pulse Ox O2 Delivery O2 Flow Rate FiO2 09/06/16 15:39 36.5 69 18 121/66 96 09/06/16 12:00 Room Air 09/06/16 11:01 36.7 55 18 120/69 94 Room Air 09/06/16 08:01 36.6 64 18 99/54 96 Room Air 09/06/16 08:00 Room Air 09/06/16 04:00 Room Air 09/06/16 03:58 36.9 62 18 104/67 96 Room Air 09/06/16 00:00 Room Air 09/05/16 23:59 37.0 70 18 108/63 96 Room Air 09/05/16 20:30 Room Air 09/05/16 19:05 36.8 69 18 118/75 94 Room Air 09/05/16 17:55 69 110/68 Physical Exam General Appearance: no apparent distress Respiratory/Chest: lungs clear, normal breath sounds, no respiratory distress, no accessory muscle use Cardiovascular: regular rate, rhythm, no edema, no murmur Abdomen: normal bowel sounds, non tender, soft Laboratory Results Last 24 Hours Test 09/05/16 20:01 09/06/16 06:42 09/06/16 06:53 09/06/16 11:09 Bedside Glucose 129 mg/dl 118 mg/dl 106 mg/dl White Blood Count 10.27 K/uL Red Blood Count 3.74 M/uL Hemoglobin 11.2 g/dL Hematocrit 32.4 % Mean Corpuscular Volume 86.6 fL Mean Corpuscular Hemoglobin 29.9 pg Mean Corpuscular Hemoglobin Concent 34.6 g/dl Platelet Count 263 K/uL Mean Platelet Volume 10.9 fL Neutrophils (%) (Auto) 59.3 % Lymphocytes (%) (Auto) 26.2 % Monocytes (%) (Auto) 10.6 % Eosinophils (%) (Auto) 3.0 % Basophils (%) (Auto) 0.5 % Neutrophils # (Auto) 6.09 K/uL Lymphocytes # (Auto) 2.69 K/uL Monocytes # (Auto) 1.09 K/uL Eosinophils # (Auto) 0.31 K/uL Basophils # (Auto) 0.05 K/uL RDW Standard Deviation 43.5 fL RDW Coefficient of Variation 13.6 % Immature Granulocyte % (Auto) 0.4 % Immature Granulocyte # (Auto) 0.04 K/uL Sodium Level 142 mmol/L Potassium Level 3.8 mmol/L Chloride Level 112 mmol/L Carbon Dioxide Level 19 mmol/L Anion Gap 11.0 mmol/L Blood Urea Nitrogen 19 mg/dl Creatinine 0.99 mg/dl Est Creatinine Clear Calc Drug Dose 43.1 ml/min Estimated GFR () 64.6 Estimated GFR (Non- 55.7 BUN/Creatinine Ratio 18.9 Random Glucose 118 mg/dl Calcium Level 8.6 mg/dl Magnesium Level 2.4 mg/dl Chemistry Specimen Hemolysis Test 09/06/16 16:08 Bedside Glucose 118 mg/dl Assessment and Plan This is a 76 year old female with PMH of severe MS, HTN, DM2, HLD, CKD stage 3 presents with chest pain and found to have SVT NSTEMI, type II 09/06 secondary to SVT no tachycardia since starting on b-paige and verapamil, which we will continue appreciate cardiology input cardiac cath in AM 09/05 supply-demand mismatch, likely due to SVT troponin elevation of > 2, again, likely due to tachycardia was given CCB and B-blockers and this suppressed her tachycardia currently in NSR once tachycardia resolved, her chest pain also resolved RODRIGO performed today Severe mitral stenosis. Severe left atrial enlargement Severe Mitral Stenosis plan is for a cardiac catheterization on 09/07 possible surgical intervention? appreciate cardiology input HTN BP is stable continue current meds DM2 sliding scale insulin Ha1c = 7.0% DVT ppx Lovenox FULL CODE
[2016-09-06 19:21] VITALS: BP 118/63; PULSE 70; TEMP 36.8; O2SAT 98
[2016-09-06 23:07] VITALS: BP 106/68; PULSE 67; TEMP 37.1; O2SAT 95
[2016-09-07] VITALS (12 sets, daily range): BP systolic 108–144; BP diastolic 62–78; PULSE 51–61; TEMP 36.4–36.9; O2SAT 91–98
[2016-09-07] MEDS: VERAPAMIL HCL 40 MG TAB PO SCH (06:35)
[2016-09-07 06:48] LABS: HEMATOCRIT 32.9 % (37-47); MEAN CELL VOLUME 86.4 fL (80-100); MEAN CORPUSCULAR HEMOGLOBIN 29.7 pg (25-34); MEAN CORPUSCULAR HGB CONC 34.3 g/dl (32-36); MEAN PLATELET VOLUME 10.6 fL (7.4-10.4); PLATELET COUNT 293 K/uL (130-400); RED BLOOD COUNT 3.81 M/uL (4.2-5.4)
[2016-09-07] MEDS: INSULIN ASPART 100 UNITS/ML 3 ML PEN SC SCH ×4 (07:00→20:22)
[2016-09-07 07:22] LABS: CALCIUM 8.8 mg/dl (8.5-10.1); MAGNESIUM 2.4 mg/dl (1.8-2.4); POTASSIUM 3.8 mmol/L (3.5-5.1)
[2016-09-07] MEDS: PANTOprazole SOD 40 MG TAB PO SCH (08:32)
[2016-09-07] MEDS: GEMFIBROZIL 600 MG TAB PO SCH ×2 (08:33→20:24)
[2016-09-07] MEDS: PRAVASTATIN SOD 20 MG TAB PO SCH (08:33)
[2016-09-07] MEDS: CLOPIDOGREL BISULFATE 75 MG TAB PO SCH (08:33)
[2016-09-07] MEDS: METOPROLOL TARTRATE 25 MG TAB PO SCH ×2 (08:33→20:24)
--- NOTE | 2016-09-07 10:18 | Cardiology Follow-Up ---
Subjective General Date of Service: Sep 07, 2016. Chief Complaint: follow up chest pain, tachycardia Pt evaluation today including: conversation w/ patient, conversation w/ family , physical exam, chart review, lab review, review of studies, conversation w/ food consultant, review of inpatient medication list History of Present Illness The patient is a 76 year old female seen i follow up. Feeling well today. No CP or SOB. Grandson present at bedside. Offers no complaints. Allergies Coded Allergies: Lisinopril (Unverified Allergy, Unknown, COUGHING, 09/03/16) Social History Smoking Status: Never Smoker Hx Tobacco Use In Past Year?: No Hx Alcohol Use - Type And Amou: No Hx Substance Use - Type And Am: No Problem List Medical Problems: (1) Hypokalemia Status: Acute (2) Left facial numbness Status: Acute (3) SVT (supraventricular tachycardia) Status: Acute (4) Syncope Status: Acute Review of Systems Respiratory: + dyspnea on exertion, No cough, No dyspnea at rest, No hemoptysis , No shortness of breath, No sputum, No wheezing Cardiac: No PND, No chest pain, No claudication, No edema, No orthopnea, No palpitations Physical Exam Vital Signs Last Vital Signs Documentation Date Time Temp Pulse Resp B/P Pulse Ox O2 Delivery O2 Flow Rate FiO2 09/07/16 10:05 36.5 56 18 113/65 91 Room Air 2.0 Physical Exam Constitutional: Level of Distress: NAD Psychiatric: Mental Status: active & alert ENMT: normal ENT inspection Neck: supple Lungs: Auscultation: no wheezing, no rales/crackles, no rhonchi Cardiovascular: Heart Auscultation: RRR, pertinent finding (1/6 diastolic murmur ) Extremities: no edema Neurologic: Gait & Station: pertinent finding (no focal neurologic deficits ) Cranial Nerves: grossly intact Assessment and Plan Assessment and Plan Imp: 1. NSTEMI - likely type 2 secondary to PSVT and demand ischemia 2. Severe mitral stenosis secondary to h/o rheumatic fever at age 17 -severe LA dilatation -mild to moderate MR -possible mild pulmonary HTN per echo 3. Dyslipidemia 4.H/o CVA on chronic plavix therapy Plan/Recommendations: Risks, benefits, and alternatives to left and right cardiac catheterization reviewed at length. Patient agreeable to procedure. Plan for outpatient CT surgical consultation pending review of result. Continue metoprolol and verapamil for PSVT. Further recommendations pending catheterization result. Laboratory Results Last 24 Hours Test 09/06/16 11:09 09/06/16 16:08 09/06/16 20:15 09/07/16 06:30 Bedside Glucose 106 mg/dl 118 mg/dl 127 mg/dl White Blood Count 9.20 K/uL Red Blood Count 3.81 M/uL Hemoglobin 11.3 g/dL Hematocrit 32.9 % Mean Corpuscular Volume 86.4 fL Mean Corpuscular Hemoglobin 29.7 pg Mean Corpuscular Hemoglobin Concent 34.3 g/dl RDW Standard Deviation 42.7 fL RDW Coefficient of Variation 13.6 % Platelet Count 293 K/uL Mean Platelet Volume 10.6 fL Sodium Level 139 mmol/L Potassium Level 3.8 mmol/L Chloride Level 111 mmol/L Carbon Dioxide Level 19 mmol/L Anion Gap 9.0 mmol/L Blood Urea Nitrogen 21 mg/dl Creatinine 1.00 mg/dl Est Creatinine Clear Calc Drug Dose 42.0 ml/min Estimated GFR () 63.8 Estimated GFR (Non- 55.1 BUN/Creatinine Ratio 21.0 Random Glucose 123 mg/dl Calcium Level 8.8 mg/dl Magnesium Level 2.4 mg/dl Test 09/07/16 06:32 Bedside Glucose 126 mg/dl
[2016-09-07] MEDS ORDERED: FENTANYL CITRATE INJ 50 MCG/1 ML 2 ML VIAL ONE (10:28)
[2016-09-07] MEDS ORDERED: MIDAZOLAM HCL 1 MG/ML 2ML VIAL ONE (10:28)
--- NOTE | 2016-09-07 11:10 | Progress Note ---
Subjective Date of Service: Sep 07, 2016. Subjective Pt evaluation today including: conversation w/ patient, physical exam, lab review, review of studies, review of inpatient medication list Saw/examined the patient in room 222 She is doing well this morning denies chest pain/palpitations eager to get procedure done (cardiac cath) - states she wants to go home as soon as possible no other complaints Problem List Medical Problems: (1) Hypokalemia Status: Acute (2) Left facial numbness Status: Acute (3) SVT (supraventricular tachycardia) Status: Acute (4) Syncope Status: Acute Review of Systems Constitutional: No chills, No fever Respiratory: No cough, No shortness of breath, No sputum Cardiac: No chest pain, No edema, No palpitations Abdomen: No diarrhea, No nausea, No pain, No vomiting Medications Current Inpatient Medications Medications (Trade) Dose Ordered Sig/Tito Route Start Time Stop Time Status Last Admin Dose Admin Verapamil HCl (Isoptin Tab) 40 mg Q6 PO 09/03/16 18:00 10/03/16 17:59 09/06/16 23:47 40 MG Metoprolol Tartrate (Lopressor Tab) 25 mg BID PO 09/04/16 09:00 10/04/16 08:59 09/07/16 08:33 25 MG Clopidogrel Bisulfate (plAVix TAB) 75 mg QAM PO 09/04/16 09:00 10/04/16 08:59 09/07/16 08:33 75 MG Gemfibrozil (Lopid Tab) 600 mg BID PO 09/03/16 21:00 10/03/16 20:59 09/07/16 08:33 600 MG Pravastatin Sodium (Pravachol Tab) 10 mg DAILY PO 09/04/16 09:00 10/04/16 08:59 09/07/16 08:33 10 MG Pantoprazole Sodium (Protonix Tab) 20 mg DAILY PO 09/04/16 09:00 10/04/16 08:59 09/07/16 08:32 20 MG Insulin Aspart (novoLOG ASPART) SLIDING SCALE G... ACHS SC 09/03/16 16:15 10/03/16 16:14 09/04/16 11:00 1 UNITS Acetaminophen (Tylenol Tab) 650 mg Q4H PRN PO 09/03/16 14:00 10/03/16 13:59 09/04/16 03:30 650 MG Al Hydrox/Mg Hydrox/Simethicone (Maalox Max Susp) 15 ml Q4H PRN PO 09/03/16 14:00 10/03/16 13:59 Magnesium Hydroxide (Milk Of Magnesia Susp) 30 ml Q12H PRN PO 09/03/16 14:00 10/03/16 13:59 Ondansetron HCl (Zofran Inj) 4 mg Q6H PRN IV 09/03/16 14:00 10/03/16 13:59 Nitroglycerin (Nitrostat Tab) 0.4 mg UD PRN SL 09/03/16 14:00 10/03/16 13:59 Glucose (Glucose 40% Gel) 15-30 GRAMS 15 GRAMS... UD PRN PO 09/03/16 15:30 10/03/16 15:29 Glucose (Glucose Chew Tab) 4-8 Tablets 4 Tabl... UD PRN PO 09/03/16 15:30 10/03/16 15:29 Dextrose (Dextrose 50% 50ML Syringe) 25-50ML OF 50% DW IV FOR... UD PRN IV 09/03/16 15:30 10/03/16 15:29 Glucagon (Glucagon Inj) 1 mg UD PRN SQ 09/03/16 15:30 10/03/16 15:29 Enoxaparin Sodium (Lovenox Inj) 40 mg QAM SQ 09/06/16 09:00 10/06/16 08:59 Future Hold 09/06/16 08:08 40 MG Objective Vital Signs Date Time Temp Pulse Resp B/P Pulse Ox O2 Delivery O2 Flow Rate FiO2 09/07/16 10:05 36.5 56 18 113/65 91 Room Air 2.0 09/07/16 08:00 Room Air 09/07/16 07:58 36.5 56 18 113/65 91 Room Air 09/07/16 04:00 Room Air 09/07/16 04:00 36.9 54 17 127/64 96 Room Air 09/07/16 00:00 Room Air 09/06/16 23:07 37.1 67 18 106/68 95 Room Air 09/06/16 20:00 Room Air 09/06/16 19:21 36.8 70 18 118/63 98 2/22/17 16:00 Room Air 09/06/16 15:39 36.5 69 18 121/66 96 09/06/16 12:00 Room Air Physical Exam General Appearance: no apparent distress Respiratory/Chest: lungs clear, normal breath sounds, no respiratory distress, no accessory muscle use Cardiovascular: regular rate, rhythm, no edema, no murmur Abdomen: normal bowel sounds, non tender, soft Extremities: normal inspection, no pedal edema Neurologic/Psychiatric: no motor/sensory deficits, alert, normal mood/affect Laboratory Results Last 24 Hours Test 09/06/16 11:09 09/06/16 16:08 09/06/16 20:15 09/07/16 06:30 Bedside Glucose 106 mg/dl 118 mg/dl 127 mg/dl White Blood Count 9.20 K/uL Red Blood Count 3.81 M/uL Hemoglobin 11.3 g/dL Hematocrit 32.9 % Mean Corpuscular Volume 86.4 fL Mean Corpuscular Hemoglobin 29.7 pg Mean Corpuscular Hemoglobin Concent 34.3 g/dl RDW Standard Deviation 42.7 fL RDW Coefficient of Variation 13.6 % Platelet Count 293 K/uL Mean Platelet Volume 10.6 fL Sodium Level 139 mmol/L Potassium Level 3.8 mmol/L Chloride Level 111 mmol/L Carbon Dioxide Level 19 mmol/L Anion Gap 9.0 mmol/L Blood Urea Nitrogen 21 mg/dl Creatinine 1.00 mg/dl Est Creatinine Clear Calc Drug Dose 42.0 ml/min Estimated GFR () 63.8 Estimated GFR (Non- 55.1 BUN/Creatinine Ratio 21.0 Random Glucose 123 mg/dl Calcium Level 8.8 mg/dl Magnesium Level 2.4 mg/dl Test 09/07/16 06:32 Bedside Glucose 126 mg/dl Assessment and Plan This is a 76 year old female with PMH of severe MS, HTN, DM2, HLD, CKD stage 3 presents with chest pain and found to have SVT NSTEMI, type II 09/07 plan is for right/left heart cath today continue b-paige and CCB 09/06 secondary to SVT no tachycardia since starting on b-apige and verapamil, which we will continue appreciate cardiology input cardiac cath in AM 09/05 supply-demand mismatch, likely due to SVT troponin elevation of > 2, again, likely due to tachycardia was given CCB and B-blockers and this suppressed her tachycardia currently in NSR once tachycardia resolved, her chest pain also resolved RODRIGO performed today Severe mitral stenosis. Severe left atrial enlargement Severe Mitral Stenosis plan is for a cardiac catheterization on 09/07 possible surgical intervention? appreciate cardiology input HTN BP is stable continue current meds DM2 sliding scale insulin Ha1c = 7.0% DVT ppx Lovenox FULL CODE
[2016-09-07 11:41] LABS: ISTAT ARTERIAL BLOOD GAS HCO3 17 meq/L (19-24); ISTAT ARTERIAL BLOOD GAS PCO2 32 mmHg (35-46); ISTAT ARTERIAL BLOOD GAS PO2 < 32 mmHg (80-95); ISTAT ARTERIAL BLOOD GAS pH 7.33 (7.35-7.45); ISTAT CARBON DIOXIDE 18 mEq/l (24-31)
[2016-09-07 11:41] LABS: ISTAT ARTERIAL BLOOD GAS HCO3 13 meq/L (19-24); ISTAT ARTERIAL BLOOD GAS PCO2 33 mmHg (35-46); ISTAT ARTERIAL BLOOD GAS PO2 64 mmHg (80-95); ISTAT ARTERIAL BLOOD GAS pH 7.22 (7.35-7.45); ISTAT CARBON DIOXIDE 14 mEq/l (24-31)
[2016-09-07 11:41] LABS: ISTAT ARTERIAL BLOOD GAS HCO3 15 meq/L (19-24); ISTAT ARTERIAL BLOOD GAS PCO2 29 mmHg (35-46); ISTAT ARTERIAL BLOOD GAS PO2 57 mmHg (80-95); ISTAT ARTERIAL BLOOD GAS pH 7.32 (7.35-7.45); ISTAT CARBON DIOXIDE 16 mEq/l (24-31)
[2016-09-07 11:41] LABS: ISTAT ARTERIAL BLOOD GAS HCO3 16 meq/L (19-24); ISTAT ARTERIAL BLOOD GAS PCO2 28 mmHg (35-46); ISTAT ARTERIAL BLOOD GAS PO2 57 mmHg (80-95); ISTAT ARTERIAL BLOOD GAS pH 7.36 (7.35-7.45); ISTAT CARBON DIOXIDE 17 mEq/l (24-31)
[2016-09-07] MEDS ORDERED: SODIUM CHLORIDE 0.9% 1000ML 250 ML IV PRN (11:48)
[2016-09-07] MEDS ORDERED: ACETAMINOPHEN 325 MG TAB PO PRN (12:00)
[2016-09-07] MEDS ORDERED: ONDANSETRON INJ 2 MG/ML 2 ML VIAL IV PRN (12:00)
--- NOTE | 2016-09-07 12:10 | Procedure Note ---
Pre-Mod Sedation Assessment General Date of Moderate Sedation: Sep 07, 2016. Vital Signs: Vital Signs Past 12 Hours Date Time Temp Pulse Resp B/P Pulse Ox O2 Delivery O2 Flow Rate FiO2 09/07/16 11:50 36.9 55 16 135/74 97 Room Air 09/07/16 11:42 54 18 139/72 97 Room Air 09/07/16 11:38 57 20 134/67 96 Room Air 09/07/16 11:33 56 20 127/70 95 Room Air 09/07/16 11:28 58 18 146/69 94 Room Air 09/07/16 10:05 36.5 56 18 113/65 91 Room Air 2.0 09/07/16 08:00 Room Air 09/07/16 07:58 36.5 56 18 113/65 91 Room Air 09/07/16 04:00 Room Air 09/07/16 04:00 36.9 54 17 127/64 96 Room Air Review Cardiovascular: regular rate, rhythm, no edema, + diastolic murmur Abdomen: non tender Lungs: chest non-tender, lungs clear Airway Class: II Pre-Sedation Airway Assessment Oral Cavity: WNL Able to Visualize Vocal Cords: No Short Thick Neck: No Hx of Sleep Apnea: No Smoking Status: Never Smoker ASA Classification: Class III Procedure Planning Contraindications-for Mod Sed: None Yes Notes The planned sedation has been discussed with the patient and consent obtained. I have identified the patient, determined the appropriateness of sedation and have assessed the patient immediately prior to the procedure. All medicine(s) and interventions are by my order.
--- NOTE | 2016-09-07 12:11 | Procedure Note ---
Post-Mod Sedation Assessment General Date of Moderate Sedation Sep 07, 2016. Vital Signs: Vital Signs Past 12 Hours Date Time Temp Pulse Resp B/P Pulse Ox O2 Delivery O2 Flow Rate FiO2 09/07/16 11:50 36.9 55 16 135/74 97 Room Air 09/07/16 11:42 54 18 139/72 97 Room Air 09/07/16 11:38 57 20 134/67 96 Room Air 09/07/16 11:33 56 20 127/70 95 Room Air 09/07/16 11:28 58 18 146/69 94 Room Air 09/07/16 10:05 36.5 56 18 113/65 91 Room Air 2.0 09/07/16 08:00 Room Air 09/07/16 07:58 36.5 56 18 113/65 91 Room Air 09/07/16 04:00 Room Air 09/07/16 04:00 36.9 54 17 127/64 96 Room Air Review - Discharge Criteria Vital Signs Stable: Yes Alert/Oriented/Conversant: Yes Returned to Baseline Mental St: Yes Nausea Absent/Minimal: Yes Pain/Discomfort/Absent/Minimal: Yes Normal/Baseline Respirations: Yes Active Bleeding?: No Pt Received D/C Instructions: N/A Prescriptions Given: None Specific Proced. D/C Criteria Distal Pulses Present (Cardiac: Yes Groin site assessed-Card Cath: Yes Voided Prior To Discharge: N/A Discharged Patients Adult Escort/Transportation: N/A
--- NOTE | 2016-09-07 12:22 | Cardiac Catheterization ---
Procedure Note Procedure Date Sep 07, 2016. Pre-Procedure Diagnosis Non STEMI, Valvular Disease AUC Score 9 Post-Procedure Diagnosis Severe CAD Procedure(s) Performed Coronary Angiography, Left Heart Cath, Right Heart Cath Investigator Fraud Dr. Gonzalez Biomedical Equipment Technician(s) Alexsander WELDER [employer] Estimated Blood Loss 8cc Medication(s) Fentanyl, Versed, Lidocaine 1% Summary of Findings 80% mid to distal Lcx 80% ostial diagonal #2 Severe mitral stenosis with MVA 0.97cm2 Mild pulmonary HTN Hemodynamics Rest Ao: 137/62/91 Final Ao: 140/56/91 LV: 137/2/17 RA: 8/5/4 RV: 48/2/10 PA: 46/12/29 PW: 17 Recommendations CABG, valve replacement Specimens None Radiation Exposure (mGy) 193 Contrast (mls) 50 Procedural Complication(s) None Disposition PCU ACC Data Cardiac Status Clinical evaluation leading to the procedure CAD Presntation: Non STEMI Anginal Classification: CCS IV Heart Failure: No Cardiogenic Shock w/in 24Hrs: No Imaging studies past 6 months: No Stress studies past 6 months: No Coronary Anatomy Dominant: Right Left Main (% Stenosis): Normal LAD (% Stenosis): Ostial (0%), Proximal (10%), Mid (30%), Distal (10%) D1 (% Stenosis): Ostial (Small vessel with mild luminal irregularities), Proximal (10%), Mid (10%), Distal (10%) D2 (% Stenosis): Ostial (80%), Proximal (10%), Mid (10%), Distal (10%) Circumflex (% Stenosis): Ostial (0%), Proximal (20%), Mid (80%), Distal (10) OM2 (% Stenosis): Normal L PL1 (% Stenosis): Ostial (0%), Proximal (0%), Mid (20%), Distal (30%) RCA (% Stenosis): Ostial (0%), Proximal (10%), Mid (20%), Distal (10%) R PDA (% Stenosis): Normal R PL1 (% Stenosis): Normal Ramus (% Stenosis): Ostial (20%), Mid (20%), Distal (10%), Proximal (10%) Diagnostic Status: Urgent Closure Device Percutaneous Entry Location: Femoral Closure Device: Mynx Recommendations: CABG, valve replacement Intraprocedure Events Significant Dissection: No Perforation: No
--- NOTE | 2016-09-07 16:43 | Cardiology Progress Note ---
Cardiology Progress Note Date of Service Sep 07, 2016. Cardiology Progress Note Patient reassessed status post cardiac catheterization. She is sitting upright , and feeling well. Her groin site is stable. Cardiac catheterization summary from today 09/07/16: 80% mid Lcx 80% ostial diagonal #1 Severe mitral stenosis with MVA 0.97cm2 Mild pulmonary HTN Plan: Start Coumadin for stroke prophylaxis given severe mitral stenosis and past stroke. DC verapamil. Continue metoprolol. Start amiodarone 200 mg TID, for prevention of further SVT and in attempts to prevent perioperative atrial fibrillation at time of MVR/ CABG. Patient remained in the hospital overnight to recover, hopeful discharge tomorrow with plans for outpatient CT surgery consultation for CABG 2 and mitral valve replacement. I have already requested the CT surgery appointment through our office.
[2016-09-07] MEDS ORDERED: WARFARIN SOD 5 MG TAB PO ONE (17:00)
[2016-09-08 03:44] VITALS: BP 130/69; PULSE 59; TEMP 36.9; O2SAT 99
[2016-09-08] MEDS: INSULIN ASPART 100 UNITS/ML 3 ML PEN SC SCH ×2 (07:00→11:00)
[2016-09-08 07:01] LABS: HEMATOCRIT 32.3 % (37-47); MEAN CELL VOLUME 86.6 fL (80-100); MEAN CORPUSCULAR HGB CONC 34.7 g/dl (32-36); MEAN PLATELET VOLUME 10.1 fL (7.4-10.4); PLATELET COUNT 323 K/uL (130-400); RED BLOOD COUNT 3.73 M/uL (4.2-5.4); WHITE BLOOD COUNT 8.74 K/uL (4.8-10.8)
[2016-09-08 07:08] LABS: INR 1.1 (0.9-1.1); PROTHROMBIN TIME (PATIENT) 11.3 SECONDS (9.0-12.0)
[2016-09-08] MEDS ORDERED: AMIODARONE 200 MG TAB PO SCH (07:30)
[2016-09-08 07:39] LABS: BUN/CREATININE RATIO 22.5 (10-20); CALCIUM 8.6 mg/dl (8.5-10.1); CREATININE 0.87 mg/dl (0.60-1.20); POTASSIUM 3.8 mmol/L (3.5-5.1)
[2016-09-08 07:40] VITALS: BP 122/63; PULSE 57; TEMP 36.3; O2SAT 98
[2016-09-08] MEDS: METOPROLOL TARTRATE 25 MG TAB PO SCH (07:59)
[2016-09-08] MEDS: PRAVASTATIN SOD 20 MG TAB PO SCH (07:59)
[2016-09-08] MEDS: PANTOprazole SOD 40 MG TAB PO SCH (08:00)
[2016-09-08] MEDS: CLOPIDOGREL BISULFATE 75 MG TAB PO SCH (08:00)
[2016-09-08] MEDS: GEMFIBROZIL 600 MG TAB PO SCH (08:00)
--- NOTE | 2016-09-08 10:39 | Progress Note ---
Subjective Date of Service: Sep 08, 2016. Subjective Pt evaluation today including: conversation w/ patient, physical exam, lab review, review of studies, review of inpatient medication list Saw/examined the patient in room 222 She is doing okay after her cath, denies chest pain/palpitations No acute events overnight Problem List Medical Problems: (1) Hypokalemia Status: Acute (2) Left facial numbness Status: Acute (3) SVT (supraventricular tachycardia) Status: Acute (4) Syncope Status: Acute Review of Systems Constitutional: No chills, No fever Respiratory: No cough, No dyspnea at rest, No dyspnea on exertion, No hemoptysis, No shortness of breath, No sputum Cardiac: No chest pain, No edema, No palpitations Abdomen: No diarrhea, No nausea, No pain, No vomiting Medications Current Inpatient Medications Medications (Trade) Dose Ordered Sig/Tito Route Start Time Stop Time Status Last Admin Dose Admin Metoprolol Tartrate (Lopressor Tab) 25 mg BID PO 09/04/16 09:00 10/04/16 08:59 09/08/16 07:59 25 MG Clopidogrel Bisulfate (plAVix TAB) 75 mg QAM PO 09/04/16 09:00 10/04/16 08:59 09/08/16 08:00 75 MG Gemfibrozil (Lopid Tab) 600 mg BID PO 09/03/16 21:00 10/03/16 20:59 09/08/16 08:00 600 MG Pravastatin Sodium (Pravachol Tab) 10 mg DAILY PO 09/04/16 09:00 10/04/16 08:59 09/08/16 07:59 10 MG Pantoprazole Sodium (Protonix Tab) 20 mg DAILY PO 09/04/16 09:00 10/04/16 08:59 09/08/16 08:00 20 MG Insulin Aspart (novoLOG ASPART) SLIDING SCALE G... ACHS SC 09/03/16 16:15 10/03/16 16:14 09/04/16 11:00 1 UNITS Al Hydrox/Mg Hydrox/Simethicone (Maalox Max Susp) 15 ml Q4H PRN PO 09/03/16 14:00 10/03/16 13:59 Magnesium Hydroxide (Milk Of Magnesia Susp) 30 ml Q12H PRN PO 09/03/16 14:00 10/03/16 13:59 Nitroglycerin (Nitrostat Tab) 0.4 mg UD PRN SL 09/03/16 14:00 10/03/16 13:59 Glucose (Glucose 40% Gel) 15-30 GRAMS 15 GRAMS... UD PRN PO 09/03/16 15:30 10/03/16 15:29 Glucose (Glucose Chew Tab) 4-8 Tablets 4 Tabl... UD PRN PO 09/03/16 15:30 10/03/16 15:29 Dextrose (Dextrose 50% 50ML Syringe) 25-50ML OF 50% DW IV FOR... UD PRN IV 09/03/16 15:30 10/03/16 15:29 Glucagon (Glucagon Inj) 1 mg UD PRN SQ 09/03/16 15:30 10/03/16 15:29 Enoxaparin Sodium (Lovenox Inj) 40 mg QAM SQ 09/06/16 09:00 10/06/16 08:59 Future Hold 09/06/16 08:08 40 MG Acetaminophen 650 mg 650 mg Q4H PRN PO 09/07/16 12:00 10/07/16 11:59 Sodium Chloride (Nss 1000ml) 250 ml @ 999 mls/hr Q16M PRN IV 09/07/16 11:48 10/07/16 11:47 Warfarin Sodium (Coumadin Tab) 5 mg DAILY@16 PO 09/08/16 16:00 10/08/16 15:59 Amiodarone HCl (Cordarone Tab) 200 mg TIDM PO 09/08/16 07:30 10/08/16 07:29 09/08/16 08:00 200 MG Objective Vital Signs Date Time Temp Pulse Resp B/P Pulse Ox O2 Delivery O2 Flow Rate FiO2 09/08/16 08:05 Room Air 09/08/16 07:40 36.3 57 18 122/63 98 Room Air 09/08/16 04:00 Room Air 09/08/16 03:44 36.9 59 20 130/69 99 Room Air 09/08/16 00:00 Room Air 09/07/16 23:42 36.9 60 20 108/65 95 Room Air 09/07/16 19:30 Room Air 09/07/16 19:27 36.9 61 16 118/70 94 Room Air 09/07/16 15:30 Room Air 09/07/16 15:20 36.4 60 18 130/62 97 Room Air 09/07/16 14:20 57 16 144/64 97 Room Air 09/07/16 13:20 54 16 132/64 97 Room Air 09/07/16 12:50 56 16 133/68 98 Room Air 09/07/16 12:20 51 16 138/78 96 Room Air 09/07/16 12:15 Room Air 09/07/16 12:05 51 16 133/74 96 Room Air 09/07/16 12:00 Room Air 09/07/16 11:50 36.9 55 16 135/74 97 Room Air 09/07/16 11:42 54 18 139/72 97 Room Air 09/07/16 11:38 57 20 134/67 96 Room Air 09/07/16 11:33 56 20 127/70 95 Room Air 09/07/16 11:28 58 18 146/69 94 Room Air Physical Exam Respiratory/Chest: lungs clear, normal breath sounds, no respiratory distress, no accessory muscle use Cardiovascular: regular rate, rhythm, no edema, no murmur Abdomen: normal bowel sounds, non tender, soft Extremities: normal inspection, no pedal edema Neurologic/Psychiatric: no motor/sensory deficits, alert, normal mood/affect Laboratory Results Last 24 Hours Test 09/07/16 10:59 09/07/16 11:04 09/07/16 11:06 09/07/16 11:27 Bedside Blood Gas pH (LAB) 7.22 7.36 7.33 7.32 Bedside Blood Gas pCO2 (LAB) 33 mmHg 28 mmHg 32 mmHg 29 mmHg Bedside Blood Gas pO2 (LAB) 64 mmHg 57 mmHg < 32 mmHg 57 mmHg Bedside Blood Gas HCO3 (LAB) 13 meq/L 16 meq/L 17 meq/L 15 meq/L Bedside Blood Gas Total CO2 14 mEq/l 17 mEq/l 18 mEq/l 16 mEq/l Bedside Blood Gas Base Excess (LAB) -14.0 meq/L -10.0 meq/L -9.0 meq/L -11.0 meq/L Bedside Blood Gas O2 Saturation 88.0 % 88.0 % 50.0 % 87.0 % Test 09/07/16 11:54 09/07/16 16:11 09/07/16 20:15 09/08/16 06:24 Bedside Glucose 113 mg/dl 97 mg/dl 140 mg/dl 128 mg/dl Test 09/08/16 06:30 White Blood Count 8.74 K/uL Red Blood Count 3.73 M/uL Hemoglobin 11.2 g/dL Hematocrit 32.3 % Mean Corpuscular Volume 86.6 fL Mean Corpuscular Hemoglobin 30.0 pg Mean Corpuscular Hemoglobin Concent 34.7 g/dl RDW Standard Deviation 43.3 fL RDW Coefficient of Variation 13.8 % Platelet Count 323 K/uL Mean Platelet Volume 10.1 fL Prothrombin Time 11.3 SECONDS Prothromb Time International Ratio 1.1 Sodium Level 139 mmol/L Potassium Level 3.8 mmol/L Chloride Level 109 mmol/L Carbon Dioxide Level 17 mmol/L Anion Gap 13.0 mmol/L Blood Urea Nitrogen 20 mg/dl Creatinine 0.87 mg/dl Est Creatinine Clear Calc Drug Dose 49.1 ml/min Estimated GFR () 75.5 Estimated GFR (Non- 65.2 BUN/Creatinine Ratio 22.5 Random Glucose 123 mg/dl Calcium Level 8.6 mg/dl Assessment and Plan This is a 76 year old female with PMH of severe MS, HTN, DM2, HLD, CKD stage 3 presents with chest pain and found to have SVT NSTEMI, type II 09/08 cath performed severe CAD - recommend CABG with valve repair at the same time plan is to discharge patient with b-paige CCB stopped amiodarone started outpatient CT follow-up 09/07 plan is for right/left heart cath today continue b-paige and CCB 09/06 secondary to SVT no tachycardia since starting on b-paige and verapamil, which we will continue appreciate cardiology input cardiac cath in AM 09/05 supply-demand mismatch, likely due to SVT troponin elevation of > 2, again, likely due to tachycardia was given CCB and B-blockers and this suppressed her tachycardia currently in NSR once tachycardia resolved, her chest pain also resolved RODRIGO performed today Severe mitral stenosis. Severe left atrial enlargement Severe Mitral Stenosis plan is for a cardiac catheterization on 09/07 possible surgical intervention? appreciate cardiology input HTN BP is stable continue current meds DM2 sliding scale insulin Ha1c = 7.0% DVT ppx Lovenox FULL CODE
[2016-09-08] MEDS ORDERED: CMD5 PO (10:42)
[2016-09-08] MEDS ORDERED: LPR25 PO (10:42)
[2016-09-08] MEDS ORDERED: CRD200 PO (10:42)
--- NOTE | 2016-09-08 10:46 | Discharge Instructions ---
Discharge Instructions Admission Reason for Admission: Hypokalemia; Svt Discharge Discharge Diagnosis / Problem: SVT; NSTEMI Discharge Goals Goal(s): Decrease discomfort, Improve function, Diagnostic testing, Therapeutic intervention Activity Recommendations Activity Limitations: resume your previous activity . Instructions / Follow-Up Instructions / Follow-Up Please follow-up with Dr. Reece - you will get a phone call with an appointment * You will be started on Coumadin (blood thinner) - you will need an outpatient follow-up with an anticoagulation clinic to check your bloodwork to make sure you are on the right dose of Coumadin * You are started on amiodarone - this is to prevent any irregular heart beats * You will also be started on metoprolol * Stop taking verapamil and the HCTZ/Losartan Current Hospital Diet Patient's current hospital diet: AHA Diet (Heart Healthy), Diabetes Type 2 Diet Discharge Diet Recommended Diet: AHA Diet (Heart Healthy) Pending Studies Studies pending at discharge: no Laboratory Results Hemoglobin A1c Test 09/04/16 06:16 Range/Units Estimated Average Glucose 154 mg/dl Hemoglobin A1c 7.0 H 4.5-5.6 % Lipid Panel Test 09/04/16 06:16 Range/Units Triglycerides Level 197 H 0-150 mg/dl Cholesterol Level 131 0-200 mg/dl HDL Cholesterol 35 mg/dl Cholesterol/HDL Ratio 3.7 LDL Cholesterol, Calculated 57 mg/dl Medical Emergencies . Who to Call and When: Medical Emergencies: If at any time you feel your situation is an emergency, please call 911 immediately. . Non-Emergent Contact Non-Emergency issues call your: Primary Care Provider, Tractor Trailer Driver . . "Provider Documentation" section prepared by Gary Lynn. VTE Core Measure Inpt VTE Proph given/why not?: Enoxaparin (Lovenox)SQ, Warfarin (Coumadin)
--- NOTE | 2016-09-08 10:48 | Discharge Summary ---
Discharge Summary Date of Service Sep 08, 2016. Discharge Summary Admission Date: Sep 03, 2016 at 14:00 Discharge Date: Sep 08, 2016 Discharge Disposition: Home Principal Diagnosis: SVT, NSTEMI Severe CAD and severe MS Medication Reconciliation New Medications: Amiodarone HCl (Amiodarone HCl) 200 Mg Tab 200 MG PO TIDM for 30 Days, #90 TAB Metoprolol Tartrate (Lopressor) 25 Mg Tab 25 MG PO BID for 30 Days, #60 TAB Warfarin Sod (Coumadin) 5 Mg Tab 5 MG PO DAILY@16 for 30 Days, #30 TAB Continued Medications: Calcium Carbonate (Calcium) 600 Mg Tab 600 MG PO BID Clopidogrel Bisulfate (Clopidogrel) 75 Mg Tab 75 MG PO QAM for 30 Days, #30 TAB Ergocalciferol (Vitamin D 58010 Unit) 50,000 Unit Cap 09734 UNIT PO MONTHLY, CAP Gemfibrozil (Lopid) 600 Mg Tab 600 MG PO BID, TAB Metformin Hcl Er (Glucophage Er) 500 Mg Tab 500 MG PO DAILY for 90 Days, #90 TAB 3 Refills Omeprazole (Prilosec) 20 Mg Capcr 20 MG PO DAILY, CAP Pravastatin (Pravachol ) 20 Mg Tab 10 MG PO DAILY, TAB Discontinued Medications: Hctz/Losartan (Hyzaar 25MG/100MG) Tab 1 TAB PO DAILY, TAB Verapamil Sust Rel (Calan Sr Ext Rel) 240 Mg Tabcr 240 MG PO DAILY, TAB Admission Information Physical Exam (per Admitting): DATE OF ADMISSION: 09/03/2016 CHIEF COMPLAINT: Chest pain and SVT. HISTORY OF PRESENT ILLNESS: This is a 76-year-old female with past medical history significant for hyperlipidemia, osteoporosis, family history of colon cancer, chronic kidney disease stage III, asymmetric septal hypertrophy and mitral stenosis, type 2 diabetes, hypertension, presents with chest pain and SVT. The patient was at [facility] when she noticed she was not feeling comfortable, not feeling well and also had some chest pressure radiating to her both arms and at that time EMS was called and in the EMS, she was found to be in SVT. She was given 1 dose of adenosine 6 and another dose of 12 mg and she seemed to be converted to sinus rhythm and she was brought into the ER. In the ER 5mg of iv cardizem given as her blood pressure was on klower side.But again she went back to SVT and she got another dose of adenosine, but she only converted to short period of time to sinus and went back again into SVT and she was given IV 10mg Cardizem and currently she is in sinus rhythm and symptoms are resolved. Blood pressure is somewhat on the borderline. Prior to this episode, she was perfectly fine. No fever, no chills, no shortness of breath, no cough, no dizziness, no nausea, no vomiting, no abdominal pain. Eating and drinking fine. Normal bowel and bladder movements. Currently resting comfortably and hemodynamically stable. ALLERGIES: No known drug allergies. PAST MEDICAL HISTORY: As mentioned above. PAST SURGICAL HISTORY: Appendectomy done with hysterectomy, colonoscopy, EGD with biopsies, tonsillectomy and adenoidectomy, total hysterectomy at the age of 38. MEDICATIONS: The patient is on omeprazole 20 mg p.o. daily, losartan/hydrochlorothiazide 100/25 mg p.o. daily, pravastatin 10 mg p.o. daily, vitamin D 5000 units p.o. daily, Plavix 75 mg p.o. daily, metformin XR 500 mg p.o. daily, verapamil SR 240 mg p.o. daily, gemfibrozil 600 mg p.o. b.i.d., Fosamax 70 mg p.o. weekly. FAMILY HISTORY: Significant for mother had CVA, IL and diabetes and at age of 64. Father had IL at 47 and at age of 83. Brother had colon cancer and is alive. SOCIAL HISTORY: No smoking history, no alcohol history. Her in 2008. Lives with a daughter. REVIEW OF SYMPTOMS: As per HPI. Rest of review of systems negative. PHYSICAL EXAMINATION: GENERAL: The patient is of moderate build, not in distress. VITAL SIGNS: Temperature 36.7; pulse when she came in was in 180, currently 72; respiratory rate 16, blood pressure 100/43, oxygen 99 percent on 4 liters. HEENT: No pallor, no icterus. Pupils equal, round, and reactive to light. NECK: No JVD, no neck masses, no carotid bruits. CARDIOVASCULAR: S1, S2 heard, regular rate and rhythm; diastolic murmur in the mitral area. RESPIRATORY SYSTEM: Normal AP diameter No accessory muscle use. No wheezing, no crackles. ABDOMEN: Soft, bowel sounds present. Nontender. No distention. CENTRAL NERVOUS SYSTEM: Cranial nerves II-XII grossly intact. Nonfocal. EXTREMITIES: No edema, no erythema. LABORATORIES: Sodium 145, potassium 2.8, chloride 109, bicarbonate 19, BUN 24, creatinine 1.2, serum glucose 163. Calcium 9, magnesium 1.8, total creatinine kinase 55. Troponin 1 0.03. TSH 5.4. WBC 9.4, hemoglobin 11.6, hematocrit 33.7, platelets 282. IMAGING DATA: Chest x-ray, no acute findings seen. EKG Currently, normal sinus rhythm with a rate of 71 with first degree AV block, no acute ST-changes seen. ASSESSMENT AND PLAN: This is a 76-year-old female who presents with supraventricular tachycardia. 1. Supraventricular tachycardia. Required 3 doses of adenosine and Cardizem, currently in sinus rhythm. Cardiology saw the patient. Her symptoms could be from severe mitral stenosis. Will follow the echocardiogram, serial cardiac enzymes and plan for stopping the long-acting verapamil and losartan/hydrochlorothiazide and placing on short-acting Cardizem and Lopressor, as per cardiology. Close monitor in the tele floor. 2. Hypokalemia. We will replace and follow labs 3. HTN Short-acting Cardizem and Lopressor as above and we will monitor the blood pressure. 4. History of diabetes. We will hold the metformin and place on insulin-sliding scale.Follow hba1c levels. 5. History of mitral stenosis, moderate to severe in the previous echo. We will follow the repeat echo and may need mitral valve replacement. 6. History of hyperlipidemia. Continue home medications gemfibrozil and pravastatin. 7. Gastroesophageal reflux disease. Continue PPI 8. Deep vein thrombosis prophylaxis, SCDs and TEDs for now. 9. Disposition: Admit to tele floor. Expect to discharge home and follow with the family doctor and cardiology. Level 1 full code. Hospital Course This is a 76 year old female with PMH of severe MS, HTN, DM2, HLD, CKD stage 3 presents with chest pain and found to have SVT NSTEMI, type II 09/08 cath performed severe CAD - recommend CABG with valve repair at the same time plan is to discharge patient with b-paige CCB stopped amiodarone started outpatient CT follow-up 09/07 plan is for right/left heart cath today continue b-paige and CCB 09/06 secondary to SVT no tachycardia since starting on b-paige and verapamil, which we will continue appreciate cardiology input cardiac cath in AM 09/05 supply-demand mismatch, likely due to SVT troponin elevation of > 2, again, likely due to tachycardia was given CCB and B-blockers and this suppressed her tachycardia currently in NSR once tachycardia resolved, her chest pain also resolved RODRIGO performed today Severe mitral stenosis. Severe left atrial enlargement Severe Mitral Stenosis plan is for a cardiac catheterization on 09/07 possible surgical intervention? appreciate cardiology input HTN BP is stable continue current meds DM2 sliding scale insulin Ha1c = 7.0% DVT ppx Lovenox FULL CODE Total time spent on discharge = 42 minutes This includes examination of the patient, discharge planning, medication reconciliation, and communication with other providers. Discharge Instructions Please follow-up with Dr. Reece - you will get a phone call with an appointment * You will be started on Coumadin (blood thinner) - you will need an outpatient follow-up with an anticoagulation clinic to check your bloodwork to make sure you are on the right dose of Coumadin * You are started on amiodarone - this is to prevent any irregular heart beats * You will also be started on metoprolol * Stop taking verapamil and the HCTZ/Losartan
--- NOTE | 2016-09-08 11:57 | Cardiology Follow-Up ---
Subjective General Date of Service: Sep 08, 2016. Chief Complaint: follow up chest pain, tachycardia Pt evaluation today including: conversation w/ patient, physical exam History of Present Illness The patient is a 76 year old female seen in follow up. Pt feeling well post cardiac cath. Groin site stable, telemetry stable. Allergies Coded Allergies: Lisinopril (Unverified Allergy, Unknown, COUGHING, 09/03/16) Social History Smoking Status: Never Smoker Hx Tobacco Use In Past Year?: No Hx Alcohol Use - Type And Amou: No Hx Substance Use - Type And Am: No Problem List Medical Problems: (1) Hypokalemia Status: Acute (2) Left facial numbness Status: Acute (3) SVT (supraventricular tachycardia) Status: Acute (4) Syncope Status: Acute Physical Exam Vital Signs Last Vital Signs Documentation Date Time Temp Pulse Resp B/P Pulse Ox O2 Delivery O2 Flow Rate FiO2 09/08/16 11:10 36.3 57 18 98 Room Air 09/08/16 07:40 122/63 09/07/16 10:05 2.0 Physical Exam Constitutional: Level of Distress: NAD Psychiatric: Mental Status: active & alert ENMT: normal ENT inspection Neck: supple Lungs: Auscultation: no wheezing, no rales/crackles, no rhonchi Cardiovascular: Heart Auscultation: RRR, pertinent finding (1/6 diastolic murmur ) Extremities: no edema Neurologic: Gait & Station: pertinent finding (no focal neurologic deficits ) Cranial Nerves: grossly intact Assessment and Plan Assessment and Plan Impression: 1. NSTEMI , due to supply demand mismatch in setting of PSVT, tachycardic up to ~180 bmp, in setting of severe MS. -Pre hospital EKG performed 09/03/16 documenting the SVT is scanned to [id number] as " monitor strip 09/04/16, 8:20). -presentation not consistent with acute coronary plaque rupture. -Anginal symptoms and ischemic EKG changes resolved with resolution of the tachycardia. -As expected troponin subsequently trended up, as pt was tachycardia for over an hour prior to arrival of EMS Cardiac catheterization summary from 09/07/16: 80% mid Lcx 80% ostial diagonal #1 Severe mitral stenosis with MVA 0.97cm2 Mild pulmonary HTN 2. History of Rheumatic Fever , age 17, resultant Rheumatic heart disease. Severe MS based on TTE/ RODRIGO, mild to moderate MR. 3. History of dyslipidemia, on statin and gemfibrozil therapy 4. Past stroke for which she is on clopidogrel. Plan: DC verapamil. plant to discharge patient on metoprolol and amiodarone, new coumadin. Outpt CT surgery consult arranged for CABG , MVR. Cardio follow up arranged. anticoag referral placed. Lazaro Walden DO Laboratory Results Last 24 Hours Test 09/07/16 16:11 09/07/16 20:15 09/08/16 06:24 09/08/16 06:30 Bedside Glucose 97 mg/dl 140 mg/dl 128 mg/dl White Blood Count 8.74 K/uL Red Blood Count 3.73 M/uL Hemoglobin 11.2 g/dL Hematocrit 32.3 % Mean Corpuscular Volume 86.6 fL Mean Corpuscular Hemoglobin 30.0 pg Mean Corpuscular Hemoglobin Concent 34.7 g/dl RDW Standard Deviation 43.3 fL RDW Coefficient of Variation 13.8 % Platelet Count 323 K/uL Mean Platelet Volume 10.1 fL Prothrombin Time 11.3 SECONDS Prothromb Time International Ratio 1.1 Sodium Level 139 mmol/L Potassium Level 3.8 mmol/L Chloride Level 109 mmol/L Carbon Dioxide Level 17 mmol/L Anion Gap 13.0 mmol/L Blood Urea Nitrogen 20 mg/dl Creatinine 0.87 mg/dl Est Creatinine Clear Calc Drug Dose 49.1 ml/min Estimated GFR () 75.5 Estimated GFR (Non- 65.2 BUN/Creatinine Ratio 22.5 Random Glucose 123 mg/dl Calcium Level 8.6 mg/dl Test 09/08/16 11:16 Bedside Glucose 121 mg/dl
[2016-09-08 12:10] VITALS: BP 109/66; PULSE 57; TEMP 36.4; O2SAT 98
[2016-09-08] MEDS ORDERED: WARFARIN SOD 5 MG TAB PO SCH (16:00)
[2016-10-27] MEDS ORDERED: SENNEXT (13:48)
[2016-10-27] MEDS ORDERED: CHOL1TAB12 (13:48)
[2016-10-27] MEDS ORDERED: POTA10CA28 PO (13:48)
[2016-10-27] MEDS ORDERED: PRENTAB26 PO (13:48)
[2016-10-27] MEDS ORDERED: FRS/40 PO (13:48)
[2016-10-27] MEDS ORDERED: OXYC15TA89 PO (13:48)
[2016-10-27] MEDS ORDERED: DOCU100C31 PO (13:48)
[2016-10-27] MEDS ORDERED: ASPI81TA28 PO (13:48)
== END 2016-09-08 12:59 | disposition home or self-care (01) | DRG 281 ==
LOC: ENRESERVDT → ENRESERVTM → EDBD 12:29 → C.EDC 12:31 → C.2T 14:00
PROVIDERS: ADMIT Hospitalist; ATTEND Family Medicine
PROC: B24BZZ4 Ultrasonography of Heart with Aorta, Transesophageal (ICD-10-PCS; 2016-09-05)
PROC: 4A023N8 Measurement of Cardiac Sampling and Pressure, Bilateral, Percutaneous Approach (ICD-10-PCS; principal; 2016-09-07 10:27)
PROC: B211YZZ Fluoroscopy of Multiple Coronary Arteries using Other Contrast (ICD-10-PCS; principal; 2016-09-07 10:27)
DX: I21.4 Non-ST elevation (NSTEMI) myocardial infarction (principal); I47.1 Supraventricular tachycardia; I05.0 Rheumatic mitral stenosis; I25.10 Atherosclerotic heart disease of native coronary artery without angina pectoris; E87.6 Hypokalemia; I12.9 Hypertensive chronic kidney disease with stage 1 through stage 4 chronic kidney disease, or unspecified chronic kidney disease; E11.22 Type 2 diabetes mellitus with diabetic chronic kidney disease; N18.3 Chronic kidney disease, stage 3 (moderate); E78.5 Hyperlipidemia, unspecified; K21.9 Gastro-esophageal reflux disease without esophagitis; M81.0 Age-related osteoporosis without current pathological fracture; Z86.73 Personal history of transient ischemic attack (TIA), and cerebral infarction without residual deficits; Z79.02 Long term (current) use of antithrombotics/antiplatelets; Z79.83 Long term (current) use of bisphosphonates; Z79.84 Long term (current) use of oral hypoglycemic drugs; Z79.899 Other long term (current) drug therapy; Z82.49 Family history of ischemic heart disease and other diseases of the circulatory system; Z82.3 Family history of stroke; Z83.3 Family history of diabetes mellitus; Z80.0 Family history of malignant neoplasm of digestive organs

== ENCOUNTER → 2016-10-02 | Outpatient (CLI) | payer OTHER ==
[~2016-10-02] MED LIST changes: +ASPI81TA28 PO; +CALC-393 PO; -CALCTAB5 PO; +CHOL1TAB12; +CMD5 PO; +CRD200 PO; +DOCU100C31 PO; +ERGO500037 PO; +FRS/40 PO; -LOSA100T2 PO; +LPR25 PO; +OXYC15TA89 PO; +POTA10CA28 PO; +PRENTAB26 PO; +PRLSR20 PO; +SENNEXT; -VERA240T20 PO
[2016-10-02 13:46] LABS: PROTHROMBIN TIME (PATIENT) 33.5 SECONDS (9.0-12.0)
== END | disposition home or self-care (01) ==
LOC: C.LABSPEC 12:50
PROVIDERS: ATTEND Family Medicine
DX: Z79.01 Long term (current) use of 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s (principal); Z51.81 Encounter for therapeutic drug level monitoring

== ENCOUNTER → 2016-10-12 | Outpatient (CLI) | payer OTHER ==
[2016-10-12 12:54] LABS: INR 1.8 (0.9-1.1); PROTHROMBIN TIME (PATIENT) 19.6 SECONDS (9.0-12.0)
== END | disposition home or self-care (01) ==
LOC: C.LABSPEC 12:30
PROVIDERS: ATTEND Family Medicine
DX: Z79.01 Long term (current) use of 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s (principal); Z51.81 Encounter for therapeutic drug level monitoring

== ENCOUNTER → 2016-10-19 | Outpatient (CLI) | payer OTHER ==
[2016-10-19 13:36] LABS: INR 2.2 (0.9-1.1); PROTHROMBIN TIME (PATIENT) 23.8 SECONDS (9.0-12.0)
--- NOTE | 2016-10-20 15:06 | CODING QUERY NO DIAGNOSIS ---
Valid Physician Order Needed 41 A valid physician order must be submitted in order to properly bill for the service(s) provided, including date of service(s), valid diagnosis, and physician signature. If these tests are done on a recurring basis the original physician order must be submitted in order to code and bill for the service(s) provided. Please fax us the original, signed physician order so that we may expedite billing to [phone] DOS 10/19/2016 * PT Thank you [facility]
== END | disposition home or self-care (01) ==
LOC: C.LABSPEC 12:43
PROVIDERS: ATTEND Family Medicine
DX: Z79.01 Long term (current) use of 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s (principal)

== ENCOUNTER 2019-03-10 09:38 | Inpatient (IN) ==
[2019-03-10 10:00] LABS: Basophils # (auto) 0.07 K/uL (0-0.2); Basophils % (auto) 0.5 %; Eosinophils # (auto) 0.14 K/uL (0-0.5); Hematocrit (blood only) 37.3 % (37-47); Hemoglobin 12.8 g/dL (12.0-16.0); Immature Granulocytes # (auto) 0.05 K/uL (0.00-0.02); Immature Granulocytes % (auto) 0.3 %; Lymphocytes # (auto) 2.53 K/uL (1.2-3.4); Lymphocytes % (auto) 17.4 %; Mean Corpuscular Hgb Conc 34.3 g/dL (32-36); Mean Corpuscular Volume 84.6 fL (80-100); Mean Platelet Volume 9.8 fL (7.4-10.4); Monocytes # (auto) 1.42 K/uL (0.11-0.59); Monocytes % (auto) 9.8 %; Neutrophils # (auto) 10.32 K/uL (1.4-6.5); Platelet Count 254 K/uL (130-400); RDW Coefficient of Variation 13.8 % (11.5-14.5); RDW Standard Deviation 43.2 fL (36.4-46.3); Red Blood Count 4.41 M/uL (4.2-5.4); White Blood Count 14.53 K/uL (4.8-10.8)
[2019-03-10 10:14] LABS: Albumin Level 3.6 gm/dl (3.4-5.0); Calcium 8.3 mg/dl (8.5-10.1); Creatinine Clr Calc Pharmacy 44.3 ml/min; Est GFR (African American) 66.1; Potassium 3.3 mmol/L (3.5-5.1)
[2019-03-10 10:24] LABS: Albumin Globulin Ratio 1.1 (0.9-2); Bilirubin,Total 0.4 mg/dl (0.2-1); Globulin 3.4 gm/dl (2.5-4.0); Troponin I 1.35 ng/ml (0-0.045)
--- NOTE | 2019-03-10 10:32 | XRay Report ---
XR chest 1V portable HISTORY: Atypical Chest Pain COMPARISON: Chest 09/03/2016. FINDINGS: No pneumothorax. No pleural effusions. The heart is normal in size. There are poststernotom y changes. Stable calcified granulomas within the left upper lobe. Otherwise, the lungs are clear. IMPRESSION: No significant change compared to the prior study. No acute process. Electronically signed by: Manny Forrest M.D. 03/10/2019 10:31 AM
[2019-03-10] MEDS ORDERED: Heparin IV Low Dose WITH Bolus IV STA (11:04)
[2019-03-10] MEDS ORDERED: HEPARIN SODIUM/DEXTROSE 25,000 UNITS/500 ML BAG IV SCH (11:15)
--- NOTE | 2019-03-10 12:22 | History & Physical Report ---
Date of Service March 10, 2019 Assessment & Plan (1) Non-ST elevation [place] (NSTEMI): Pt with episode of palpitations, chest pain, and diaphoresis this morning - seems to have been triggered by Lilian-D and resolved with sublingual nitro spray x3. EKG changes and positive troponin noted in ED - Consult cardiology - discussed with Dr. Gonzalez. Since currently pain-free, will manage medically for now. Heparin gtt started in ED. Will keep pt NPO until seen by cardiology - Monitor on telemetry - Serial troponin/EKG - Check ECHO - Continue outpatient regiment of beta-paige, statin, aspirin. Pt with history of ACEI intolerance (cough) (2) Hypokalemia: - Check magnesium level - Replete potassium and recheck labs this evening (3) Diabetes: Last A1c 01/24/19 was 9.3. Pt has not figured out how to use glucometer so not checking sugars at home. Does admit to dietary non-compliance at [facility] last week - HOLD Metformin while admitted - Accuchecks ACHS/Q6 hrs while NPO - Insulin sliding scare coverage (4) CAD (coronary artery disease): History of CABG x 2 in 2017 - see plan for #1 (5) Dyslipidemia: Continue outpatient statin (6) CKD (chronic kidney disease), stage III: Baseline creatinine appears to be 0.8-0.9 upon review of outpatient records. Stable at present. Will monitor while admitted (7) Essential hypertension: Continue home meds and monitor (8) Osteoporosis: Receives Fosamax weekly (Saturdays) and follows with rheumatology Patient seen and reviewed with collaborating physician, Dr. Garner. Plan of care discussed and as outlined above. Further plan of care pending cardiology evaluation/clinical course. If pt develops recurrent chest pain, will notify cardiology for more urgent evaluation but appears stable at present. Care to be assumed in AM by Dr. Andrade. Lazaro Neal PA-C History of Present Illness Chief Complaint: Chest pain Primary Care Provider: Rosalie Reece MD This is a 78 year old female with a PMH of CAD s/p CABG x2, s/p MVR, DM2, CKD3, pulmonary HTN, osteoporosis, and dyslipidemia presents to the ED today via EMS for chest pain and palpitations. Pt reports waking up today in her usual state of health other than sinus pressure and nasal congestion. Around 7:30 am she decided to take Lilian-D for these symptoms instead of using the prescribed Flonase. Within a few minutes, she developed sensation of heart racing with associated diaphoresis, followed by feeling weak and "foggy" then developed substernal chest pain that radiated to both arms. She attempted to take five aspirin 81 mg to relieve the pain - minimal improvement. She called her family who ultimately decided to call EMS. She reports being given sublingual nitro spray x 3 before relief of her pain en route to ED. When currently seen in ED, she reports that she is pain-free but feels "washed out" from this morning's events. She denies associated cough, dyspnea, wheezing, fevers, chills, N/V, dizziness. Her sinus headache from this morning did resolve with the Lilian-D. She states that symptoms this morning felt similar to episode in 2017 that resulted in CABG/MVR. Allergies Allergy/AdvReac Type Severity Reaction Status Date / Time lisinopril Allergy Unknown COUGHING Unverified 03/10/19 10:31 Home Medications Home Medications Medication Instructions Recorded Confirmed Type alendronate 70 mg PO WK 03/10/19 03/10/19 History aspirin [Aspirin Low Dose] 81 mg PO QAM 03/10/19 03/10/19 History ergocalciferol (vitamin D2) 50,000 unit PO MONTHLY 03/10/19 03/10/19 History [Vitamin D2] fexofenadine [Lilian Allergy] 0 mg PO UD 03/10/19 03/10/19 History metformin 1,000 mg PO BIDM 03/10/19 03/10/19 History metoprolol tartrate 25 mg PO BID 03/10/19 03/10/19 History omeprazole 20 mg PO QAM 03/10/19 03/10/19 History rosuvastatin 5 mg PO QAM 03/10/19 03/10/19 History Past Med/Surg History Medical History Diabetes (Chronic) CAD (coronary artery disease) (Chronic) Dyslipidemia (Chronic) CKD (chronic kidney disease), stage III (Chronic) Essential hypertension (Chronic) Pulmonary hypertension (Chronic) Osteoporosis (Chronic) History of non-ST elevation myocardial infarction (NSTEMI) Surgical History History of elbow surgery History of mitral valve replacement History of surgery on right wrist History of tonsillectomy and adenoidectomy S/P CABG x 2 S/P appendectomy S/P hysterectomy Family History Father Heart disease Mother Heart disease Stroke Brother Cancer Other No significant family history Social History Preferred Language: Azerbaijani Communication Ability: Effective Beliefs That Will Affect Care: None Current Living Situation: Family Current Living Situation Comment: lives with daughter Other Information That Helps Us Care for You: No Feels Safe at Home: Yes Safety Concerns: Feels Safe At This Time Smoking Status: Never smoker Hx Alcohol Use: No Hx Substance Use: No Review of Systems Review of Systems: All systems reviewed & are unremarkable except as noted in HPI & below Constitutional: + sweats, + fatigue and + weakness; no fever and no chills Eyes: no diplopia and no worsening vision Ear, Nose, Mouth, Throat: + nasal congestion and + sinus pain/pressure; no sore throat and no dysphagia Respiratory: no cough, no dyspnea and no wheezing Cardiovascular: + chest pain, + radiating jaw, neck or arm pain and + palpitations; no lightheadedness, no syncope, no edema and no calf pain Gastrointestinal: no abdominal pain, no nausea, no vomiting, no dysphagia, no constipation, no diarrhea/loose stools and no blood in stools Genitourinary: no dysuria, no urinary frequency and no hematuria Musculoskeletal: no back pain and no neck pain Integumentary: no rash and no urticaria Neurologic: no localized weakness, no paresthesia, no seizure-like activity, no dizziness and no headache(s) Physical Exam Constitutional: WD/WN, vitals as above no acute distress Eyes: PERRL, conjunctivae normal, anicteric sclerae ENMT: external ear and nose normal, oropharynx normal Neck: trachea midline Respiratory: normal respiratory effort, lungs clear to auscultation Auscultation: no rales, no rhonchi and no wheezes Cardiovascular: Rate/Rhythm: regular rate and regular rhythm Heart Sounds: no gallop and no cardiac rub Extremities: normal capillary refill; no calf tenderness and no pedal edema Gastrointestinal (Abdomen): Inspection/Auscultation: normal bowel sounds; abdomen not distended Percussion/Palpation: abdomen soft; abdomen nontender Musculoskeletal: Head/Neck/Chest: normocephalic, head atraumatic and neck supple Extremities: strength 5/5 throughout; no cyanosis and no clubbing Skin: no rashes, warm and dry no jaundice Neurologic: moves all extremities; no focal motor deficits Speech / Cognition: normal speech Psychiatric: A+Ox3, euthymic affect Results & Data Vital Signs (Past 12 Hours) Vital Signs Temp Pulse Pulse Resp BP BP Pulse Ox 03/10/19 12:00 60 17 151/78 H 99 03/10/19 10:30 77 18 120/62 96 03/10/19 09:46 36.5 C 88 18 124/71 94 Laboratory Results Laboratory Results - last 24 hr 03/10/19 03/10/19 03/10/19 09:45 09:45 09:45 WBC 14.53 H RBC 4.41 Hgb 12.8 Hct 37.3 MCV 84.6 MCH 29.0 MCHC 34.3 RDW Std Deviation 43.2 RDW Coeff of Matt 13.8 Plt Count 254 MPV 9.8 Immature Gran % (Auto) 0.3 Neut % (Auto) 71.0 Lymph % (Auto) 17.4 [place] % (Auto) 9.8 Eos % (Auto) 1.0 Baso % (Auto) 0.5 Immature Gran # (Auto) 0.05 H Neut # (Auto) 10.32 H Lymph # (Auto) 2.53 [place] # (Auto) 1.42 H Eos # (Auto) 0.14 Baso # (Auto) 0.07 PT 10.7 INR 1.0 APTT 28.1 PTT Ratio 1.0 Sodium 134 L Potassium 3.3 L Chloride 99 Carbon Dioxide 20 L Anion Gap 15.0 H BUN 11 Creatinine 0.96 Est Cr Clr Drug Dosing 44.3 Est GFR ( Amer) 66.1 Est GFR (Non-Af Amer) 57.0 BUN/Creatinine Ratio 11.0 Glucose 247 H Calcium 8.3 L Magnesium Total Bilirubin 0.4 AST 32 ALT 30 Alkaline Phosphatase 91 Troponin I 1.350 H* Total Protein 7.0 Albumin 3.6 Globulin 3.4 Albumin/Globulin Ratio 1.1 Lipase 163 03/10/19 09:45 WBC RBC Hgb Hct MCV MCH MCHC RDW Std Deviation RDW Coeff of Matt Plt Count MPV Immature Gran % (Auto) Neut % (Auto) Lymph % (Auto) [place] % (Auto) Eos % (Auto) Baso % (Auto) Immature Gran # (Auto) Neut # (Auto) Lymph # (Auto) [place] # (Auto) Eos # (Auto) Baso # (Auto) PT INR APTT PTT Ratio Sodium Potassium Chloride Carbon Dioxide Anion Gap BUN Creatinine Est Cr Clr Drug Dosing Est GFR ( Amer) Est GFR (Non-Af Amer) BUN/Creatinine Ratio Glucose Calcium Magnesium Pending Total Bilirubin AST ALT Alkaline Phosphatase Troponin I Total Protein Albumin Globulin Albumin/Globulin Ratio Lipase Diagnostic Findings Chest X-ray 03/10/19 - IMPRESSION: No significant change compared to the prior study. No acute process. Medications Administered Heparin Sodium/Dextrose (Heparin Sodium/Dextrose) 25,000 units in 500 mls @ 0.0 2 mls/hr IV .Q24H JULES; Protocol Stop: 04/09/19 11:14 Last Admin: 03/10/19 12:50 Dose: 700 units/hr, 14 mls/hr Documented by: [id number] Cosigned by: [id number] Discontinued Medications Heparin Sodium (Porcine) (Heparin Sodium (Porcine)) Confirm Administered Dose 5,000 units .ROUTE .STK-MED ONE Stop: 03/10/19 12:47 Last Admin: 03/10/19 12:50 Dose: 3,000 units Documented by: [id number] Cosigned by: [id number] Heparin Sodium/Dextrose () 1 ea IV NOW STA; Protocol Stop: 03/10/19 11:05 Last Admin: 03/10/19 12:51 Dose: Not Given Documented by: [id number] Potassium Chloride (Klor-Con M20) 40 meq PO NOW STA Stop: 03/10/19 12:44 Last Admin: 03/10/19 12:51 Dose: 40 meq Documented by: [id number] Code Status & VTE Plan Code Status Pt request to be full code if a meaningful chance of recovery. VTE Prophylaxis Plan VTE Prophylaxis will be ordered: Yes Supervising Physician Co-Signing Physician Notes Pt was seen and examined. Agreed with Kaye HIDALGO exam, assessment and plan. 78 year old female with a PMH of CAD s/p CABG x2, s/p MVR, DM2, CKD3, pulmonary HTN, osteoporosis, and dyslipidemia presents to the ED today for chest pain and palpitations that occurred after taking taking Lilian-D for congestion. Described chest pain as chest tightness radiating to the arms. Took 5 tabs of aspirin at home and received 3 nitro subl en route. EKG done in the ER showed non specific ST changes. Troponin on admission 1.3 and elevated anion gap. Currently patient is pain free. Will observe on Telemetry, Will trend troponin and BMP. Check Echo. Cardiology consult. Case discussed with cardiology and pl an to arrange cardiac cath. Will continue monitor closely. MD [place] (1) Osteoporosis Osteoporosis type: unspecified Presence of current pathological fracture: without current pathological fracture Qualified Code(s): M81.0 - Age-related osteoporosis without current pathological fracture (2) CAD (coronary artery disease) Coronary Disease-Associated Artery/Lesion type: [place] artery [place] vs. transplanted heart: [place] heart
[2019-03-10 12:30] LABS: Partial Thromboplastin Time 28.1 Seconds (21.0-31.0); Prothrombin Time 10.7 Seconds (9.0-12.0)
[2019-03-10] MEDS ORDERED: POTASSIUM CHLORIDE 20 MEQ TABCR PO STA (12:43)
[2019-03-10] MEDS ORDERED: HEPARIN SOD 5,000 UNIT/0.5 ML VIAL ONE (12:46)
[2019-03-10] MEDS ORDERED: MAGNESIUM SULFATE / D5W 1 GM/100 ML BAG IV STA (13:19)
--- NOTE | 2019-03-10 13:48 | Cardiology Consultation ---
Date of Consultation March 10, 2019 Assessment & Plan (1) Non-ST elevation (NSTEMI) myocardial infarction: (2) CAD (coronary artery disease): (3) S/P CABG x 2: (4) S/P MVR (mitral valve replacement): (5) SVT (supraventricular tachycardia): (6) Diabetes: (7) CKD (chronic kidney disease) stage 3, GFR 30-59 ml/min: Recommendations: IV heparin initiated. Continue aspirin, statin, and beta-paige. Resting bedside 2D transthoracic echocardiogram pending at this time. The risks, be nefits, and alternatives to cardiac catheterization discussed with the patient and her family at length. All questions answered to their satisfaction. Patient is agreeable to proceed with cardiac catheterization with potential intervention if indicated. Further recommendations pending review of 2D transthoracic echocardiogram and cardiac catheterization. History of Present Illness Reason for Consultation: NSTEMI Requesting Physician: Dr. Garner Attending Physician: Dr. Nichole Garner History of Present Illness 78-year-old female presented emergency department with chest pain and palpitations. Patient was in her usual state of health this morning when she noted a sudden onset of chest tightness radiating to her left arm. The discomfort became quite severe with associated shortness of breath and diaphoresis. Patient unable to consume her a.m. meal. Grandson was present during symptoms. EMS was summoned and patient was treated with aspirin as well as sublingual nitroglycerin. Nearly pain-free upon arrival to the ER. ECG demonstrates nonspecific ST changes. Patient seen and examined at the bedside. Currently pain-free. Denies orthopnea, PND, or lower extremity edema. No recent palpitations or change in functional capacity. Denies lightheadedness, dizziness, syncope, or near syncope. Offers no other concerns/complaints at this time. Family and machining manager present at bedside. Allergies Allergy/AdvReac Type Severity Reaction Status Date / Time lisinopril Allergy Unknown COUGHING Unverified 03/10/19 10:31 Home Medications Home Medications Medication Instructions Recorded Confirmed Type alendronate 70 mg PO WK 03/10/19 03/10/19 History aspirin [Aspirin Low Dose] 81 mg PO QAM 03/10/19 03/10/19 History ergocalciferol (vitamin D2) 50,000 unit PO MONTHLY 03/10/19 03/10/19 History [Vitamin D2] fexofenadine [Lilian Allergy] 0 mg PO UD 03/10/19 03/10/19 History metformin 1,000 mg PO BIDM 03/10/19 03/10/19 History metoprolol tartrate 25 mg PO BID 03/10/19 03/10/19 History omeprazole 20 mg PO QAM 03/10/19 03/10/19 History rosuvastatin 5 mg PO QAM 03/10/19 03/10/19 History clopidogrel 75 mg PO QAM #30 tab 03/11/19 Rx famotidine [Pepcid] 20 mg PO BID 42 Days #84 tab 03/11/19 Rx Patient History Medical History Diabetes (Chronic) CAD (coronary artery disease) (Chronic) Dyslipidemia (Chronic) CKD (chronic kidney disease), stage III (Chronic) Essential hypertension (Chronic) Pulmonary hypertension (Chronic) Osteoporosis (Chronic) History of non-ST elevation myocardial infarction (NSTEMI) Surgical History History of elbow surgery History of mitral valve replacement History of surgery on right wrist History of tonsillectomy and adenoidectomy S/P CABG x 2 S/P appendectomy S/P hysterectomy Family History Father Heart disease Mother Heart disease Stroke Brother Cancer Other No significant family history Social History Preferred Language: Khmer Communication Ability: Effective Beliefs That Will Affect Care: None Current Living Situation: Family Current Living Situation Comment: lives with daughter Other Information That Helps Us Care for You: No Feels Safe at Home: Yes Safety Concerns: Feels Safe At This Time Smoking Status: Never smoker Hx Alcohol Use: No Hx Substance Use: No Review of Systems Review of Systems: All systems reviewed & are unremarkable except as noted in HPI & below Physical Exam Physical Exam: General: NAD, AAO x3, well nourished. HEENT: Normocephalic. Atraumatic. Conjunctiva pink, no scleral icterus. Neck: No carotid bruits, the carotid upstrokes are brisk. No JVD. No HJR Heart: Regular normal S-1 and S-2 no S-3 or S-4 gallop. 1/6 midsystolic murmur heard best at the left sternal border without radiation. PMI is not displaced. No RV heave. Lungs: Clear bilateral without rales , rhonchi, or wheeze. Abdomen: Normal bowel sounds. Soft. Nontender. No masses or organomegaly. No abdominal bruits. Extremities: No clubbing, cyanosis, or edema. Pulses: radial=2/4, Dorsalis pedis =2/4, posterior tibial=2/4. Neuro: Cranial nerves grossly intact. No focal motor deficit. Results & Data Vital Signs (Past 12 Hours) Vital Signs Temp Pulse Pulse Resp BP BP Pulse Ox 03/10/19 13:10 75 17 124/67 96 03/10/19 12:00 60 17 151/78 H 99 03/10/19 10:30 77 18 120/62 96 03/10/19 09:46 36.5 C 88 18 124/71 94 Laboratory Results Laboratory Results - last 24 hr 03/10/19 03/10/19 03/10/19 09:45 09:45 09:45 WBC 14.53 H RBC 4.41 Hgb 12.8 Hct 37.3 MCV 84.6 MCH 29.0 MCHC 34.3 RDW Std Deviation 43.2 RDW Coeff of Matt 13.8 Plt Count 254 MPV 9.8 Immature Gran % (Auto) 0.3 Neut % (Auto) 71.0 Lymph % (Auto) 17.4 [place] % (Auto) 9.8 Eos % (Auto) 1.0 Baso % (Auto) 0.5 Immature Gran # (Auto) 0.05 H Neut # (Auto) 10.32 H Lymph # (Auto) 2.53 [place] # (Auto) 1.42 H Eos # (Auto) 0.14 Baso # (Auto) 0.07 PT 10.7 INR 1.0 APTT 28.1 PTT Ratio 1.0 Sodium 134 L Potassium 3.3 L Chloride 99 Carbon Dioxide 20 L Anion Gap 15.0 H BUN 11 Creatinine 0.96 Est Cr Clr Drug Dosing 44.3 Est GFR ( Amer) 66.1 Est GFR (Non-Af Amer) 57.0 BUN/Creatinine Ratio 11.0 Glucose 247 H Calcium 8.3 L Magnesium Total Bilirubin 0.4 AST 32 ALT 30 Alkaline Phosphatase 91 Troponin I 1.350 H* Total Protein 7.0 Albumin 3.6 Globulin 3.4 Albumin/Globulin Ratio 1.1 Lipase 163 03/10/19 09:45 WBC RBC Hgb Hct MCV MCH MCHC RDW Std Deviation RDW Coeff of Matt Plt Count MPV Immature Gran % (Auto) Neut % (Auto) Lymph % (Auto) [place] % (Auto) Eos % (Auto) Baso % (Auto) Immature Gran # (Auto) Neut # (Auto) Lymph # (Auto) [place] # (Auto) Eos # (Auto) Baso # (Auto) PT INR APTT PTT Ratio Sodium Potassium Chloride Carbon Dioxide Anion Gap BUN Creatinine Est Cr Clr Drug Dosing Est GFR ( Amer) Est GFR (Non-Af Amer) BUN/Creatinine Ratio Glucose Calcium Magnesium 1.5 L Total Bilirubin AST ALT Alkaline Phosphatase Troponin I Total Protein Albumin Globulin Albumin/Globulin Ratio Lipase (1) CAD (coronary artery disease) Coronary Disease-Associated Artery/Lesion type: [place] artery [place] vs. transplanted heart: [place] heart
[2019-03-10] MEDS ORDERED: MIDAZOLAM HCL 1 MG/ML 2ML VIAL ONE (13:50)
[2019-03-10] MEDS ORDERED: fentaNYL citrate 100 MCG/2 ML VIAL ONE (13:50)
--- NOTE | 2019-03-10 14:08 | Pre Anesthesia Assessment ---
Date of Service March 10, 2019 Pre Sedation Assessment Vital Signs Temp Pulse Pulse Resp BP BP BP 03/11/19 11:10 36.6 C 71 16 122/77 03/11/19 08:00 74 03/11/19 02:59 36.5 C 71 17 136/67 03/10/19 23:18 36.5 C 70 18 147/77 H 03/10/19 22:00 36.7 C 77 18 146/79 H 03/10/19 21:00 36.8 C 76 17 160/95 H 03/10/19 20:00 74 17 146/74 H 03/10/19 19:41 36.4 C L 76 16 155/74 H 03/10/19 18:38 76 16 152/79 H 03/10/19 18:15 78 16 119/74 03/10/19 18:09 77 16 133/74 03/10/19 18:04 70 16 134/74 03/10/19 17:49 76 16 136/81 03/10/19 17:19 74 16 126/81 03/10/19 17:04 70 16 157/72 H 03/10/19 16:49 71 16 144/77 H 03/10/19 16:34 36.4 C L 70 72 16 150/72 H 03/10/19 13:55 71 17 149/94 H 03/10/19 13:10 75 17 124/67 Pulse Ox 03/11/19 11:10 95 03/11/19 08:00 03/11/19 02:59 97 03/10/19 23:18 97 03/10/19 22:00 98 03/10/19 21:00 97 03/10/19 20:00 98 03/10/19 19:41 97 03/10/19 18:38 98 03/10/19 18:15 96 03/10/19 18:09 95 03/10/19 18:04 97 03/10/19 17:49 97 03/10/19 17:19 97 03/10/19 17:04 96 03/10/19 16:49 96 03/10/19 16:34 96 03/10/19 13:55 96 03/10/19 13:10 96 Cardiovascular + regular rate and + regular rhythm + murmur Respiratory normal respiratory effort, lungs clear to auscultation Pre-Sedation Airway Assessment Smoking Status: Never smoker ASA: ASA4 NPO Status Date of Last Intake of Fluids: 03/10/19 Time of Last Intake of Fluids: Date of Last Intake of Solid Food: 03/10/19 Time of Last Intake of Solid Foods: Procedure Planning Contraindications for Sedation: none Current Medications Reviewed: Yes Notes The planned sedation has been discussed with the patient. Informed Consent was obtained. I have identified the patient, determined the appropriateness of sedation and have assessed the patient immediately prior to the procedure. All medicine(s) and interventions are by my order.
--- NOTE | 2019-03-10 14:50 | Emergency Department Note ---
Entered by Pooja Ventura acting as a scribe for Abner Eckert DO History of Present Illness General Chief complaint: Chest Pain Source: patient History of Present Illness Onset (ago): minute(s) (prior to arrival) Location: chest Severity: similar to prior episodes Pain Consistency: + other (episode) Maximum Pain Intensity: 1 Quality: + other (chest pressure) Associated symptoms: + diaphoresis, + weakness (general) and + other (+increased heart rate; +pain to both arms; -jaw pain); no nausea/vomiting and no shortness of breath Treatments prior to arrival: other (sublingual NG, 5 aspirin) The patient is a 78 year old female who presents to the Emergency Room with complaints of an episode of chest pain that occurred prior to arrival. The patient describes the chest pain as feeling pressure. The patient also notes increased heart rate, pain to both arms, general weakness, and diaphoresis accompanying this episode. The patient notes these symptoms occurred after taking OTC Lilian. The patient notes the episode persisted up until arriving to the ED. The patient states sublingual NG given to her by EMS helped resolve symptoms. The patient also notes taking 5 aspirin prior to arrival. The patient denies nausea, jaw pain, or shortness of breath. The patient states she had a myocardial infarction and heart surgery 3 years ago, and she notes symptoms are similar to previous episode of heart issues. The patient denies being on blood thinners, and she reports her office clerk routine is Dr. Walden. Home Medications Home Medications Medication Instructions Recorded Confirmed Type alendronate 70 mg PO WK 03/10/19 03/10/19 History aspirin [Aspirin Low Dose] 81 mg PO QAM 03/10/19 03/10/19 History ergocalciferol (vitamin D2) 50,000 unit PO MONTHLY 03/10/19 03/10/19 History [Vitamin D2] fexofenadine [Lilian Allergy] 0 mg PO UD 03/10/19 03/10/19 History metformin 1,000 mg PO BIDM 03/10/19 03/10/19 History metoprolol tartrate 25 mg PO BID 03/10/19 03/10/19 History omeprazole 20 mg PO QAM 03/10/19 03/10/19 History rosuvastatin 5 mg PO QAM 03/10/19 03/10/19 History Allergies Allergy/AdvReac Type Severity Reaction Status Date / Time lisinopril Allergy Unknown COUGHING Unverified 03/10/19 10:31 Past Med/Surg History Medical History Diabetes (Chronic) CAD (coronary artery disease) (Chronic) Dyslipidemia (Chronic) CKD (chronic kidney disease), stage III (Chronic) Essential hypertension (Chronic) Pulmonary hypertension (Chronic) Osteoporosis (Chronic) History of non-ST elevation myocardial infarction (NSTEMI) Surgical History History of elbow surgery History of mitral valve replacement History of surgery on right wrist History of tonsillectomy and adenoidectomy S/P CABG x 2 S/P appendectomy S/P hysterectomy Family History Father Heart disease Mother Heart disease Stroke Brother Cancer Other No significant family history Social History Preferred Language: [place] Citizen Communication Ability: Effective Beliefs That Will Affect Care: None Current Living Situation: Family Current Living Situation Comment: lives with daughter Other Information That Helps Us Care for You: No Feels Safe at Home: Yes Safety Concerns: Feels Safe At This Time Smoking Status: Never smoker Hx Alcohol Use: No Hx Substance Use: No Review of Systems See HPI for pertinent positives & negatives. and A total of 10 systems reviewed and were otherwise negative Physical Exam Vital Signs Vital Signs - 24 hr 03/10/19 09:46 03/10/19 10:30 03/10/19 10:56 Temperature 36.5 C Temperature Source Oral Sepsis Recent Fever Within 48 Hours No Sepsis New/Unexplained Change in Mental Status No Sepsis Action Taken by Nursing No Action Required Pulse Rate 88 Pulse Rate [Apical] 77 Pulse Rhythm Regular Pulse Rhythm [Apical] Regular Pulse Strength [Apical] Normal Respiratory Rate 18 18 Respiratory Effort / Characteristics Non-Labored Spontaneous Non-Labored Spontaneous Non-Labored Spontaneous Respiratory Depth Normal Normal Normal Respiratory Pattern Regular Regular Regular Blood Pressure 124/71 Blood Pressure [Right Arm] 120/62 Blood Pressure Mean 88 Blood Pressure Mean [Right Arm] 81 Pulse Oximetry 94 96 Oxygen Delivery Method Room Air Room Air Room Air 03/10/19 12:00 Temperature Temperature Source Sepsis Recent Fever Within 48 Hours Sepsis New/Unexplained Change in Mental Status Sepsis Action Taken by Nursing Pulse Rate Pulse Rate [Apical] 60 Pulse Rhythm Pulse Rhythm [Apical] Regular Pulse Strength [Apical] Respiratory Rate 17 Respiratory Effort / Characteristics Non-Labored Spontaneous Respiratory Depth Normal Respiratory Pattern Regular Blood Pressure Blood Pressure [Right Arm] 151/78 H Blood Pressure Mean Blood Pressure Mean [Right Arm] 102 Pulse Oximetry 99 Oxygen Delivery Method Room Air GENERAL: sitting up in bed, no acute distress, non-toxic, wearing hospital gown EYE EXAM: normal conjunctiva, PERRL and EOM's grossly intact OROPHARYNX: no exudate, no erythema, lips, buccal mucosa, and tongue normal and mucous membranes are moist NECK: supple, no nuchal rigidity, no adenopathy, non-tender LUNGS: Clear to auscultation. Normal chest wall mechanics HEART: no murmurs, S1 normal and S2 normal CHEST: old midline incision ABDOMEN: abdomen soft, non-tender, normo-active bowel sounds, no masses, no rebound or guarding. BACK: Back is symmetrical on inspection and there is no deformity, no midline tenderness, no CVA tenderness. SKIN: no rashes and no bruising UPPER EXTREMITIES: upper extremities are grossly normal. LOWER EXTREMITIES: No pitting edema. Calves are equal bilaterally NEURO EXAM: Normal sensorium, cranial nerves II-XII grossly intact, normal speech, no gross weakness of arms, no gross weakness of legs. Course ED COURSE: Vital signs were reviewed and showed normal The patients medical record was reviewed The above diagnostic studies were performed and reviewed. ED treatments and interventions as stated above. 0950: The patient was evaluated in room B3B. A complete history and physical examination was performed. 1100: Upon reevaluation, the patient is resting comfortably.I discussed my f indings with the patient and her understands and agrees with the treatment plan. 1105: I discussed the case with Kaye Israel. Dr. Carmen Israel will further evaluate the patient. Based on the patients age, coexisting illnesses, exam and lab findings the decision to treat as an inpatient was made. The patient remained stable while under my care. The patient will be evaluated for further management. Consultations Consultation #1: I discussed the case with Kaye Israel. Dr. Magdiel Israel will further evaluate the patient. Time: 11:05 Administered Medications Heparin Sodium/Dextrose (Heparin Sodium/Dextrose) 25,000 units in 500 mls @ 14 mls/hr IV .Q24H JULES; Protocol Stop: 04/09/19 11:14 Last Admin: 03/10/19 12:50 Dose: 700 units/hr, 14 mls/hr Documented by: [id number] Cosigned by: [id number] Discontinued Medications Heparin Sodium (Porcine) (Heparin Sodium (Porcine)) Confirm Administered Dose 5,000 units .ROUTE .STK-MED ONE Stop: 03/10/19 12:47 Last Admin: 03/10/19 12:50 Dose: 3,000 units Documented by: [id number] Cosigned by: [id number] Heparin Sodium/Dextrose () 1 ea IV NOW STA; Protocol Stop: 03/10/19 11:05 Last Admin: 03/10/19 12:51 Dose: Not Given Documented by: [id number] Magnesium Sulfate/Dextrose (Magnesium Sulfate / D5w) 1 gm in 100 mls @ 100 mls/hr IV Q1H STA Stop: 03/10/19 14:18 Last Admin: 03/10/19 13:35 Dose: 100 mls/hr Documented by: [id number] Potassium Chloride (Klor-Con M20) 40 meq PO NOW STA Stop: 03/10/19 12:44 Last Admin: 03/10/19 12:51 Dose: 40 meq Documented by: [id number] Medical Decision Making Differential Diagnosis Differential diagnosis: Etiologies such as cardiac ischemia, aortic dissection, pulmonary embolism, pneumonia, pneumothorax, musculoskeletal, infections, pericarditis, myocarditis, esophageal rupture, gastrointestinal, as well as others were entertained. Medical Records Attestation: I reviewed the patient's medical records. Home Medications Current Medication List: was personally reviewed by me Laboratory Data Attestation: I reviewed the patient's lab results. Result diagrams: 03/10/19 09:45 03/10/19 09:45 Lab Results 03/10/19 03/10/19 03/10/19 Range/Units 09:45 09:45 09:45 WBC 14.53 H (4.8-10.8) K/uL RBC 4.41 (4.2-5.4) M/uL Hgb 12.8 (12.0-16.0) g/dL Hct 37.3 (37-47) % MCV 84.6 (80-100) fL MCH 29.0 (25-34) pg MCHC 34.3 (32-36) g/dL RDW Std Deviation 43.2 (36.4-46.3) fL RDW Coeff of Matt 13.8 (11.5-14.5) % Plt Count 254 (130-400) K/uL MPV 9.8 (7.4-10.4) fL Immature Gran % (Auto) 0.3 % Neut % (Auto) 71.0 % Lymph % (Auto) 17.4 % [place] % (Auto) 9.8 % Eos % (Auto) 1.0 % Baso % (Auto) 0.5 % Immature Gran # (Auto) 0.05 H (0.00-0.02) K/uL Neut # (Auto) 10.32 H (1.4-6.5) K/uL Lymph # (Auto) 2.53 (1.2-3.4) K/uL [place] # (Auto) 1.42 H (0.11-0.59) K/uL Eos # (Auto) 0.14 (0-0.5) K/uL Baso # (Auto) 0.07 (0-0.2) K/uL PT 10.7 (9.0-12.0) Seconds INR 1.0 (0.9-1.1) APTT 28.1 (21.0-31.0) Seconds PTT Ratio 1.0 Sodium 134 L (136-145) mmol/L Potassium 3.3 L (3.5-5.1) mmol/L Chloride 99 (98-107) mmol/L Carbon Dioxide 20 L (21-32) mmol/L Anion Gap 15.0 H (3-11) BUN 11 (7-18) mg/dl Creatinine 0.96 (0.6-1.2) mg/dl Est Cr Clr Drug Dosing 44.3 ml/min Est GFR ( Amer) 66.1 Est GFR (Non-Af Amer) 57.0 BUN/Creatinine Ratio 11.0 (10-20) Glucose 247 H (70-99) mg/dl Calcium 8.3 L (8.5-10.1) mg/dl Magnesium (1.8-2.4) mg/dl Total Bilirubin 0.4 (0.2-1) mg/dl AST 32 (15-37) U/L ALT 30 (12-78) U/L Alkaline Phosphatase 91 (45-117) U/L Troponin I 1.350 H* (0-0.045) ng/ml Total Protein 7.0 (6.4-8.2) gm/dl Albumin 3.6 (3.4-5.0) gm/dl Globulin 3.4 (2.5-4.0) gm/dl Albumin/Globulin Ratio 1.1 (0.9-2) Lipase 163 (73-393) U/L 03/10/19 Range/Units 09:45 WBC (4.8-10.8) K/uL RBC (4.2-5.4) M/uL Hgb (12.0-16.0) g/dL Hct (37-47) % MCV (80-100) fL MCH (25-34) pg MCHC (32-36) g/dL RDW Std Deviation (36.4-46.3) fL RDW Coeff of Matt (11.5-14.5) % Plt Count (130-400) K/uL MPV (7.4-10.4) fL Immature Gran % (Auto) % Neut % (Auto) % Lymph % (Auto) % [place] % (Auto) % Eos % (Auto) % Baso % (Auto) % Immature Gran # (Auto) (0.00-0.02) K/uL Neut # (Auto) (1.4-6.5) K/uL Lymph # (Auto) (1.2-3.4) K/uL [place] # (Auto) (0.11-0.59) K/uL Eos # (Auto) (0-0.5) K/uL Baso # (Auto) (0-0.2) K/uL PT (9.0-12.0) Seconds INR (0.9-1.1) APTT (21.0-31.0) Seconds PTT Ratio Sodium (136-145) mmol/L Potassium (3.5-5.1) mmol/L Chloride (98-107) mmol/L Carbon Dioxide (21-32) mmol/L Anion Gap (3-11) BUN (7-18) mg/dl Creatinine (0.6-1.2) mg/dl Est Cr Clr Drug Dosing ml/min Est GFR ( Amer) Est GFR (Non-Af Amer) BUN/Creatinine Ratio (10-20) Glucose (70-99) mg/dl Calcium (8.5-10.1) mg/dl Magnesium 1.5 L (1.8-2.4) mg/dl Total Bilirubin (0.2-1) mg/dl AST (15-37) U/L ALT (12-78) U/L Alkaline Phosphatase (45-117) U/L Troponin I (0-0.045) ng/ml Total Protein (6.4-8.2) gm/dl Albumin (3.4-5.0) gm/dl Globulin (2.5-4.0) gm/dl Albumin/Globulin Ratio (0.9-2) Lipase (73-393) U/L Imaging Data Radiologist's Impression: Radiology results as stated below per my review and the radiologist's interpretation: XR chest 1V portable HISTORY: Atypical Chest Pain COMPARISON: Chest 09/03/2016. FINDINGS: No pneumothorax. No pleural effusions. The heart is normal in size. There are poststernotomy changes. Stable calcified granulomas within the left upper lobe. Otherwise, the lungs are clear. IMPRESSION: No significant change compared to the prior study. No acute process. Electronically signed by: Manny Forrest M.D. 03/10/2019 10:31 AM ECG Data Attestation: I personally reviewed and interpreted this ECG as follows: Indication: chest pain Rate (beats per minute): 93 Rhythm: sinus rhythm Findings: + ST depression (in high lateral and septal leads), + ST elevation (mild elevation in lead 3), + left axis deviation and + prolonged QT Comparison ECG Date: from (09/05/16) Change: the following changes noted (depressions in high lateral leads are worse; elevations and prolonged QT are new) Blood Pressure Blood Pressure Findings: Normal blood pressure MDM Narrative Patient is a 78-year-old female who presents the ER for chest pain or jaw pain which happened after taking Lilian. Does have a previous history of a CABG 2. IV was established blood work was obtained and shows a leukocytosis of 14,000. No significant anemia. BMP with mild hypokalemia. Was unremarkable. LFTs and bilirubin was negative. Troponin III. Initial EKG shows ST segment changes in the high lateral leads. Patient took aspirin prior to arrival. EMS gave her nitro and had resolution of her chest pain. This consistent with an NSTEMI. Discussed with cardiology and they recommended heparin drip and bolus. Discussed risk and benefits with the patient she had no contraindications and she was placed on heparin drip and bolus. Evaluated by cardiology as well as the hospitalist. She was taken to the Calculating Machine Operator per cardiology. Impression & Plan Non-ST elevation IN (NSTEMI), Chest pain Critical Care Time Critical Care Time: Yes Total Critical Care Time: 35 I have personally spent 35 minutes of critical care time in the direct management of this patient. This includes bedside care, interpretation of diagnostic studies, and testing, discussion with consultants, patient, and family members, and other required patient management activities. This 35 minutes is in excess of all separately billable procedures. Discharge Plan Visit Data *Final* Discharge Date/Time: 03/10/19 14:02 Chief Complaint: Chest Pain ED Provider: Abner Eckert Discharge Problem: Non-ST elevation IN (NSTEMI), Chest pain Patient Disposition: Admitted As Inpatient Discharge Instructions Interventions: ED Discharge Assessment Last Done: 03/10/19 14:02 Discharge Problem: Chest pain Qualifiers: Chest pain type: unspecified Qualified Code(s): R07.9 - Chest pain, unspecified The scribe's documentation has been prepared under my direction and personally reviewed by me in its entirety. I confirm that the note above accurately reflects all work, treatment, procedures, and medical decision making performed by me.
[2019-03-10] MEDS ORDERED: NITROGLYCERIN/D5W 100MCG/ML 20ML SYR ONE (15:15)
[2019-03-10] MEDS ORDERED: NiCARDipine HCL INJ 2.5 MG/ML 10 ML AMP ONE (15:15)
--- NOTE | 2019-03-10 15:21 | Post Anesthesia Assessment ---
Date of Service March 10, 2019 Post Sedation Assessment Vital Signs Temp Pulse Pulse Resp BP BP BP 03/11/19 11:10 36.6 C 71 16 122/77 03/11/19 08:00 74 03/11/19 02:59 36.5 C 71 17 136/67 03/10/19 23:18 36.5 C 70 18 147/77 H 03/10/19 22:00 36.7 C 77 18 146/79 H 03/10/19 21:00 36.8 C 76 17 160/95 H 03/10/19 20:00 74 17 146/74 H 03/10/19 19:41 36.4 C L 76 16 155/74 H 03/10/19 18:38 76 16 152/79 H 03/10/19 18:15 78 16 119/74 03/10/19 18:09 77 16 133/74 03/10/19 18:04 70 16 134/74 03/10/19 17:49 76 16 136/81 03/10/19 17:19 74 16 126/81 03/10/19 17:04 70 16 157/72 H 03/10/19 16:49 71 16 144/77 H 03/10/19 16:34 36.4 C L 70 72 16 150/72 H 03/10/19 13:55 71 17 149/94 H 03/10/19 13:10 75 17 124/67 Pulse Ox 03/11/19 11:10 95 03/11/19 08:00 03/11/19 02:59 97 03/10/19 23:18 97 03/10/19 22:00 98 03/10/19 21:00 97 03/10/19 20:00 98 03/10/19 19:41 97 03/10/19 18:38 98 03/10/19 18:15 96 03/10/19 18:09 95 03/10/19 18:04 97 03/10/19 17:49 97 03/10/19 17:19 97 03/10/19 17:04 96 03/10/19 16:49 96 03/10/19 16:34 96 03/10/19 13:55 96 03/10/19 13:10 96 Recovery Score Activity: Moves 4 extremities Respiration: Deep Breath/Cough Circulation: +/-20% PreAnes Value Consciousness: Fully Awake Oxygen Saturation: > 92% On Room Air Post Sedation Plan On clinical assessment, the patient appears to have tolerated the sedation without complications. Patient is recovering as anticipated. Patient will continue to be monitored by nursing and may be discharged when sedation discharge criteria are met per below protocol. Upon Completions of procedure and additional 15 minutes continue every 5 minute vital signs and the P.A.R. score; then discharge to a Phase I or Fast Track to Phase II per the following guidelines: * Discharge Patient to appropriate Phase II area if PAR is 8 or greater or retur n to pre- procedure baseline. The post - procedure orders will be as directed. * If PAR score is less than 8 or not return to pre-procedure baseline then patient will follow Phase I monitoring till PAR is reached for Phase II. The Phase I may be done in procedure room or may call to secure a Phase I area. * If naloxone or flumazenil are used for reversal, hold in Phase I for continued monitoring from when last reversal dose was given for a minimum of 60 minutes or longer pending the nurse and/or physician discretion of patient condition before discharge to Phase II. Please call the Sedation Physician to re-evaluate and complete post-note for discharge to Phase II area. Do NOT discharge from procedure sedation or Phase 1 until post- sedation evaluation note is complete by procedure /sedation MD Sedation Discharge Instructions to be given to the patient at discharge to home.
--- NOTE | 2019-03-10 15:40 | Cardiac Catheterization ---
Cardiac Cath Procedure Full Procedure Date March 10, 2019 Pre-Procedure Diagnosis Pre-Procedure Diagnosis: Non STEMI AUC Score AUC Score: 8 Post-Procedure Diagnosis Post-Procedure Diagnosis: Severe CAD and Normal Intracardiac Pressures Procedure(s) Performed Procedure(s) Performed: Coronary Angiography, Left Heart Cath, Aortography, Bypass Graft Angiography and Femoral Artery Angiography Real Estate Sales Supervisor Marcello Gonzalez DO Naturalist(s) Glunt TRANSLATOR INTERPRETER Estimated Blood Loss Estimated Blood Loss: 8cc Medication(s) Medication(s): Lidocaine 1% and Versed Summary of Findings 99% mid Lcx 99% ostial D2 80% mid ramus (small vessel) Occluded SVG to Lcx and D2 1 of 2 soft vein grafts was cannulated with the left coronary bypass graft catheter. The image, however, was not saved. Subsequently, aortic root injection was performed confirming occlusion of both saphenous vein grafts. No evidence of competitive flow in the left circumflex. The small second diagonal branch vessel demonstrated a 99% occlusion without evidence of competitive flow. Hemodynamics Rest Ao:: 138/56/89 Final Ao: 158/65/104 LV: 139/1/4 Recommendations Recommendations: PCI without planned CABG Specimens Specimens: None Radiation Exposure (mGy) 1120 Contrast (mls) 70 Fluids (cc crystalloids) Fluids (cc crystalloids): 150cc Nss Anesthesia Moderate sedation. Start 1420. End 1512. Sedation monitor: Constance TUTTLE Procedural Complication(s) None ACC Data: Sericulturist Cardiac Status Clinical evaluation leading to the procedure CAD Presenation: Non STEMI Anginal Classification: CCS IV Heart Failure: No Cardiogenic Shock within 24 Hours: No Cardiac Arrest within 24 Hours: No Imaging Studies Past 6 Months: No Stress Studies Past 6 Months: No STEMI OR Non-STEMI Symptom Onset Date: 03/10/19 Symptom Onset Time: 08:00 Thrombolytics: No Coronary Anatomy Dominant: Right Left Main (% Stenosis): Normal LAD (% Stenosis): Proximal (Moderate calcification, 20%), Mid (20%) and Distal (10%) D1 (% Stenosis): Ostial (75%, small vessel) D2 (% Stenosis): Ostial (90%) and Proximal (90% HELEN 1 flow) Circumflex (% Stenosis): Mid (99% distal to third OM ) OM1 (% Stenosis): Ostial (1mm vessel with mild luminal irregularities 10-20%) OM2 (% Stenosis): Proximal (30%) OM3 (% Stenosis): Ostial (20%) RCA (% Stenosis): Proximal (diffuse 10-20%), Mid (Diffuse 10-20%) and Distal (Moderate calcification, diffuse 20-30%) R PDA (% Stenosis): Ostial (20% taper) R PL1 (% Stenosis): Ostial (30% taper) and Distal (fills distal Lcx via right to left collaterals ) AM (% Stenosis): Distal (20%) Ramus (% Stenosis): Mid (80%, small vessel) Grafts - Circumflex (%): Ostial (100% of the saphenous vein graft to the obtuse marginal. Graft cannulated with LCB catheter, however, picture was not saved. Subsequently an aortic root injection was performed confirming occlusion of both vein grafts to the diagonal and obtuse marginal.) Aortography Aortic Regurgitation: None Diagnostic Physicians Name: Marcello Gonzalez DO Status: Urgent Closure Device Percutaneous Entry Location: Femoral Recommendations: PCI without planned CABG Intraprocedure Events Significant Disection: No Perforation: No
[2019-03-10] MEDS ORDERED: CLOPIDOGREL BISULFATE 300 MG TAB ONE (16:03)
--- NOTE | 2019-03-10 16:08 | Post Anesthesia Assessment ---
Date of Service March 10, 2019 Post Sedation Assessment Vital Signs Temp Pulse Pulse Resp BP BP Pulse Ox 03/10/19 13:55 71 17 149/94 H 96 03/10/19 13:10 75 17 124/67 96 03/10/19 12:00 60 17 151/78 H 99 03/10/19 10:30 77 18 120/62 96 03/10/19 09:46 97.7 F 88 18 124/71 94 Recovery Score Activity: Moves 4 extremities Respiration: Deep Breath/Cough Circulation: +/-20% PreAnes Value Consciousness: Fully Awake Oxygen Saturation: > 92% On Room Air Discharge Sedation Level of Care: Fast Track Phase II Post Sedation Plan On clinical assessment, the patient appears to have tolerated the sedation without complications. Patient is recovering as anticipated. Patient will continue to be monitored by nursing and may be discharged when sedation discharge criteria are met per below protocol. Upon Completions of procedure and additional 15 minutes continue every 5 minute vital signs and the P.A.R. score; then discharge to a Phase I or Fast Track to Phase II per the following guidelines: * Discharge Patient to appropriate Phase II area if PAR is 8 or greater or return to pre- procedure baseline. The post - procedure orders will be as directed. * If PAR score is less than 8 or not return to pre-procedure baseline then patient will follow Phase I monitoring till PAR is reached for Phase II. The Phase I may be done in procedure room or may call to secure a Phase I area. * If naloxone or flumazenil are used for reversal, hold in Phase I for continued monitoring from when last reversal dose was given for a minimum of 60 minutes or longer pending the nurse and/or physician discretion of patient condition before discharge to Phase II. Please call the Sedation Physician to re-evaluate and complete post-note for discharge to Phase II area. Do NOT discharge from procedure sedation or Phase 1 until post- sedation evaluation note is complete by procedure /sedation MD Sedation Discharge Instructions to be given to the patient at discharge to home.
[2019-03-10] MEDS ORDERED: ONDANSETRON INJ 2 MG/ML 2 ML VIAL IV PRN (16:15)
[2019-03-10] MEDS ORDERED: SODIUM CHLORIDE 0.9% 500 ML IV SCH (16:15)
--- NOTE | 2019-03-10 16:15 | Cardiac Catheterization ---
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 Cardiac Status Clinical evaluation leading to the procedure CAD Presenation: Non STEMI Anginal Classification: CCS IV Heart Failure: No Cardiogenic Shock within 24 Hours: No Cardiac Arrest within 24 Hours: No Imaging Studies Past 6 Months: No Stress Studies Past 6 Months: No Diagnostic Physicians Name: Oni Madrid MD Status: Elective Closure Device Percutaneous Entry Location: Femoral Closure Device: Angio-Seal Recommendations: PCI without planned CABG PCI Indication: PCI for high risk Non-TAWANDA Lesion Segment Name: distal circumflex Culprit Artery: Yes Stenosis Prior to Rx (%): 90 Chronic Total Occlusion: No IVUS: No FFR: No Pre-Procedure HELEN Flow: 2 Previously Treated Lesion: No Lesion Complexity: Non-High/Non-C Lesion Length (mm): 18 Thrombus Present: Yes Bifurcation Lesion: Yes Guidewire Across Lesion: No Intraprocedure Events Significant Disection: No Perforation: No Cardiac Cath Procedure Full Procedure Date March 10, 2019 Pre-Procedure Diagnosis Pre-Procedure Diagnosis: Non STEMI AUC Score AUC Score: 8 Post-Procedure Diagnosis Post-Procedure Diagnosis: Severe CAD and Successful PCI Procedure(s) Performed Procedure(s) Performed: Coronary Angiography, Drug Eluting Stent and Bypass Graft Angiography Director Of Field Sales Oni Madrid MD Railcar Foreman(s) Glunt INSURANCE COORDINATOR Estimated Blood Loss Estimated Blood Loss: 15 Medication(s) Medication(s): Clopidogrel, Fentanyl, Heparin, Nicardipine, Nitroglycerin and Versed Summary of Findings Indication: NSTEMI Access: 6 Fr right common femoral artery Catheters: EBU 3.75 guide Findings: For full details of patient's coronary angiography please cath report dictated by Dr. Gonzalez. Briefly, patient found to have multi-vessel disease including occluded vein graft to diagonal, circumflex and a 90+ % stenosis involving the distal ci rcumflex. Decision to proceed with PCI. -- PCI -- Antithrombotic therapy: Heparin, clopidogrel Procedure: Left main cannulated with EBU 3.75 guide Tire And Lube Technician 50 wire passed across lesion into distal vessel Distal circumflex lesion predilated with 2.0 compliant balloon Mid aspect of terminal OM dilated with 1.5 balloon at bifurcation Dilated circumflex lesion stented with 2.25 x 22 mm Morgan drug-eluting stent Stent post-dilated with stent balloon IC vasodilators administered for spasm Post procedure HELEN 3 flow, stent well expanded with minimal residual stenosis and no apparent cardiac complications. Arterial Closure: Angioseal Summary: 1. Successful PCI of distal circumflex with with single drug-eluting stent (2.25 x 22 m Morgan) Recommendations: To PCU for continued monitoring Loaded with clopidogrel 600 mg in slab tripper Continue dual-antiplatelet therapy for at least one year Continue statin, and ASCVD risk factor modification Consult cardiac Rehab Hemodynamics Rest Ao:: 149/58/91 Final Ao: 127/55/86 LV: -- Recommendations Recommendations: PCI without planned CABG Specimens Specimens: None Radiation Exposure (mGy) 2999 Contrast (mls) 210 Fluids (cc crystalloids) Fluids (cc crystalloids): 230 Drains Drains: None Anesthesia Moderate sedation. Procedural Complication(s) None Disposition PCU
[2019-03-10] MEDS ORDERED: GLUCOSE 40% GEL 15 GM TUBE PO PRN (16:33)
[2019-03-10] MEDS ORDERED: DEXTROSE 50% 50 ML SYRINGE IV PRN (16:33)
[2019-03-10] MEDS ORDERED: GLUCOSE 10 TABS/TUBE PO PRN (16:33)
[2019-03-10] MEDS ORDERED: GLUCAGON FOR INJ 1 MG VIAL SQ PRN (16:33)
[2019-03-10] MEDS ORDERED: CARBOHYDRATES FOR HYPOGLYCEMIA PO PRN (16:33)
[2019-03-10] MEDS: INSULIN ASPART 100 UNITS/ML 3 ML PEN SC SCH ×2 (17:48→21:14)
[2019-03-10] MEDS: METOPROLOL TARTRATE 25 MG TAB PO SCH (21:13)
[2019-03-10 22:45] LABS: BUN Creatinine Ratio 13.3 (10-20); Calcium 8.2 mg/dl (8.5-10.1); Creatinine Clr Calc Pharmacy 50.6 ml/min; Est GFR (African American) 77.7; Potassium 3.8 mmol/L (3.5-5.1)
[2019-03-11 06:50] LABS: Basophils # (auto) 0.05 K/uL (0-0.2); Basophils % (auto) 0.4 %; Eosinophils # (auto) 0.17 K/uL (0-0.5); Eosinophils % (auto) 1.5 %; Hematocrit (blood only) 37.4 % (37-47); Immature Granulocytes # (auto) 0.02 K/uL (0.00-0.02); Immature Granulocytes % (auto) 0.2 %; Lymphocytes # (auto) 2.35 K/uL (1.2-3.4); Lymphocytes % (auto) 21.1 %; Mean Corpuscular Hgb Conc 34.8 g/dL (32-36); Mean Corpuscular Volume 83.5 fL (80-100); Mean Platelet Volume 9.7 fL (7.4-10.4); Monocytes # (auto) 1.11 K/uL (0.11-0.59); Monocytes % (auto) 9.9 %; Neutrophils # (auto) 7.46 K/uL (1.4-6.5); Neutrophils % (auto) 66.9 %; Platelet Count 244 K/uL (130-400); RDW Coefficient of Variation 13.8 % (11.5-14.5); Red Blood Count 4.48 M/uL (4.2-5.4); White Blood Count 11.16 K/uL (4.8-10.8)
[2019-03-11 07:18] LABS: BUN Creatinine Ratio 12.3 (10-20); Calcium 8.3 mg/dl (8.5-10.1); Creatinine Clr Calc Pharmacy 51.7 ml/min; Est GFR (African American) 86.3; Est GFR (Non-African American) 74.5; Magnesium 2.1 mg/dl (1.8-2.4); Potassium 3.9 mmol/L (3.5-5.1)
[2019-03-11] MEDS: METOPROLOL TARTRATE 25 MG TAB PO SCH (07:41)
[2019-03-11] MEDS: INSULIN ASPART 100 UNITS/ML 3 ML PEN SC SCH ×2 (07:47→12:13)
--- NOTE | 2019-03-11 08:49 | Discharge Summary ---
Date of Service March 11, 2019 Admission HPI Per Admitting Provider This is a 78 year old female with a PMH of CAD s/p CABG x2, s/p MVR, DM2, CKD3, pulmonary HTN, osteoporosis, and dyslipidemia presents to the ED today via EMS for chest pain and palpitations. Pt reports waking up today in her usual state of health other than sinus pressure and nasal congestion. Around 7:30 am she decided to take Lilian-D for these symptoms instead of using the prescribed Flonase. Within a few minutes, she developed sensation of heart racing with associated diaphoresis, followed by feeling weak and "foggy" then developed substernal chest pain that radiated to both arms. She attempted to take five aspirin 81 mg to relieve the pain - minimal improvement. She called her family who ultimately decided to call EMS. She reports being given sublingual nitro spray x 3 before relief of her pain en route to ED. When currently seen in ED, she reports that she is pain-free but feels "washed out" from this morning's events. She denies associated cough, dyspnea, wheezing, fevers, chills, N/V, d izziness. Her sinus headache from this morning did resolve with the Lilian-D. She states that symptoms this morning felt similar to episode in 2017 that resulted in CABG/MVR. Admission Exam Per Admitting Provider Constitutional: WD/WN, vitals as above no acute distress Eyes: PERRL, conjunctivae normal, anicteric sclerae ENMT: external ear and nose normal, oropharynx normal Neck: trachea midline Respiratory: normal respiratory effort, lungs clear to auscultation Auscultation: no rales, no rhonchi and no wheezes Cardiovascular: Rate/Rhythm: regular rate and regular rhythm Heart Sounds: no gallop and no cardiac rub Extremities: normal capillary refill; no calf tenderness and no pedal edema Gastrointestinal (Abdomen): Inspection/Auscultation: normal bowel sounds; abdomen not distended Percussion/Palpation: abdomen soft; abdomen nontender Musculoskeletal: Head/Neck/Chest: normocephalic, head atraumatic and neck supple Extremities: strength 5/5 throughout; no cyanosis and no clubbing Skin: no rashes, warm and dry no jaundice Neurologic: moves all extremities; no focal motor deficits Speech / Cognition: normal speech Psychiatric: A+Ox3, euthymic affect Principal Diagnosis (1) Non-ST elevation VA (NSTEMI): (2) Hypokalemia: (3) Diabetes: (4) CAD (coronary artery disease): (5) Dyslipidemia: (6) CKD (chronic kidney disease), stage III: (7) Essential hypertension: (8) Osteoporosis: Discharge Exam Physical Exam Gen-AAO x 3, NAD, Afebrile Head-NCAT, EOMI, PERRLA, Anicteric Sclera, No Posterior Pharyngeal Erythema Neck-Supple, No JVD, No Thyromegaly, No Masses, No LAD, No Bruits Lungs-Clear to Auscultation Bilaterally, No Rales, No Rhonchi, No Wheezing, No Crepitus Chest-No S4, +S1, +S2, No S3, No Murmurs, No Rubs, No Gallops, No Ectopy Abdomen-Soft, Bowel Sounds Present, Non Tender, Non Distended, No Hepatomegaly, No Splenomegaly, No Palpable Masses, No Rebound, No Rigidity, No Guarding Musculoskeletal-Full Range of Motion Bilaterally, No CVAT Extremities-No Cyanosis, No Clubbing, No Edema Nuero-Cranial Nerves II-XII grossly intact, Motor WNL, DTRs WNL, Strength WNL, Non Focal Psych-Normal Mood Discharge Data Allergies Allergy/AdvReac Type Severity Reaction Status Date / Time lisinopril Allergy Unknown COUGHING Unverified 03/10/19 10:31 Consultations 03/10/19 11:07 ED Decision to Admit Stat 03/10/19 12:15 Consult Cardiology Routine 03/10/19 16:16 Consult Cardiac Rehabilitation Routine 03/11/19 08:48 Consult Case Management - Discharge Planning Routine Procedures Performed Operation Date: 03/10/19 14:00 Actual Procedures p Cath, Left w/Cors Vent Grafts - DO facundo Greenfield Cineradiography w/Routine Exam - DO facundo Greenfield Drug Eluting Stent SGl Vessel - Tarun Madrid MD s Angiogram Thoracic Aorta - DO facundo Greenfield Injection / Imaging Aorta - Marcello Gonzalez DO Ordered Studies 03/10/19 13:44 CL Cath Imgs for PACS use only Stat Current Diagnoses Type 2 diabetes mellitus without complications (03/10/19) Hyperlipidemia, unspecified (03/10/19) Hypokalemia (03/10/19) Essential (primary) hypertension (03/10/19) Non-ST elevation (NSTEMI) myocardial infarction (03/10/19) Atherosclerotic heart disease of [place] coronary artery without angina pectoris (03/10/19) Age-related osteoporosis without current pathological fracture (03/10/19) Chronic kidney disease, stage 3 (moderate) (03/10/19) Allergies lisinopril Allergy (Unknown, Unverified 03/10/19 10:31) COUGHING Height/Weight/Isolation Height 5 ft 1 in Weight 62.1 kg Chemistry 03/10/19 03/10/19 03/11/19 09:45 22:05 06:35 Sodium 134 L 133 L 133 L Potassium 3.3 L 3.8 D 3.9 Chloride 99 100 101 Carbon Dioxide 20 L 27 24 Anion Gap 15.0 H 6.0 8.0 BUN 11 11 9 Creatinine 0.96 0.84 0.77 Glucose 247 H 133 H 154 H Hospital Course (1) Non-ST elevation VA (NSTEMI): Pt with episode of palpitations, chest pain, and diaphoresis this morning - seems to have been triggered by Lilian-D and resolved with sublingual nitro spray x3. EKG changes and positive troponin noted in ED S/P OSKAR to LCX - ECHO EF 55% - Continue outpatient regiment of beta-paige, statin, aspirin. Pt with history of ACEI intolerance (cough) (2) Hypokalemia: resolved (3) Diabetes: home regien on dc (4) CAD (coronary artery disease): History of CABG x 2 in 2017 - see plan for #1 (5) Dyslipidemia: Continue outpatient statin (6) CKD (chronic kidney disease), stage III: Baseline creatinine appears to be 0.8-0.9 upon review of outpatient records. Stable at present. (7) Essential hypertension: Continue home meds and monitor (8) Osteoporosis: Receives Fosamax weekly (Saturdays) and follows with rheumatology DC home today Total Time Total Time Spent Total Time Spent (In Minutes): 45 mins Discharge Plan Discharge Items Patient Disposition: Home - Self-Care Reason For Visit: CHEST PAIN Discharge Diagnosis: (1) Non-ST elevation VA (NSTEMI): (2) Hypokalemia: (3) Diabetes: (4) CAD (coronary artery disease): (5) Dyslipidemia: (6) CKD (chronic kidney disease), stage III: (7) Essential hypertension: (8) Osteoporosis: Condition: Good Discharge Goals: Improve disease control Activity: Resume your previous activity Lifting: Gradually increase as tolerated Bathing: No limitations Sexual Activity: Wait until after follow-up appointment Exercise/Sports: Wait until after follow-up appointment Driving/Machine Use: Resume 3 days after discharge Weightbearing: Full weightbearing Non-emergency contact: Primary Care Provider and Dot Compliance Manager Call non-emergency contact if: you have any medication questions Follow-up/Referrals: Rosalie Reece MD [Primary Care Provider] - 03/14/19 11:20 am Marcello Gonzalez DO [Dot Compliance Manager] - (2-3 weeks) Diet: Carb Consistent or DM2 and Heart Healthy Addtl Provider Instructions: Consider Cardiac Rehab after DC Prescriptions: New clopidogrel 75 mg Tablet 75 mg PO QAM Qty: 30 RF: 0 famotidine [Pepcid] 20 mg tablet 20 mg PO BID 42 Days Qty: 84 RF: 0 Continued alendronate 70 mg tablet 70 mg PO WK RF: 0 fexofenadine [Lilian Allergy] 180 mg Tablet PO UD RF: 0 aspirin [Aspirin Low Dose] 81 mg Tablet,Delayed Release (Dr/Ec) 81 mg PO QAM RF: 0 ergocalciferol (vitamin D2) [Vitamin D2] 50,000 unit Capsule 50,000 unit PO MONTHLY RF: 0 rosuvastatin 5 mg tablet 5 mg PO QAM RF: 0 metoprolol tartrate 25 mg tablet 25 mg PO BID RF: 0 metformin 500 mg tablet extended release 24 hr 1,000 mg PO BIDM Qty: 0 RF: 0 Discontinued omeprazole 20 mg capsule,delayed release(DR/EC) 20 mg PO QAM RF: 0 Stand-Alone Forms: Call Back Authorization, [facility] Discharge Orders: Discharge Order (Routine); Ordered 03/11/19 Ordered By: Da Andrade Admission Data Admit Date/Time: 03/10/19 12:15 Attending Provider: Da Andrade Admit Provider: Nichole Garner Primary Care Provider: Rosalie Reece Other Providers: Marcello Gonzalez ; Nichole Garner Service: Telemetry Other Interventions: Discharge Summary Assessment (RN) Last Done: 03/11/19 12:42 DC Date/Time DO NOT enter until pt leaves facility: 03/11/19 13:07
[2019-03-11] MEDS ORDERED: PANTOprazole 40 MG TAB PO SCH (09:00)
[2019-03-11] MEDS ORDERED: ROSUVASTATIN CALCIUM 5 MG TAB PO SCH (09:00)
[2019-03-11] MEDS ORDERED: ASPIRIN 81 MG ECTAB PO SCH ×2 (09:00)
[2019-03-11] MEDS ORDERED: CLOPIDOGREL BISULFATE 75 MG TAB PO SCH (09:00)
--- NOTE | 2019-03-11 12:13 | Cardiology Progress Note ---
Date of Service March 11, 2019 Assessment & Plan (1) Non-ST elevation (NSTEMI) myocardial infarction: (2) Presence of stent in left circumflex coronary artery: (3) CAD (coronary artery disease): (4) S/P CABG x 2: (5) S/P MVR (mitral valve replacement): (6) SVT (supraventricular tachycardia): (7) Diabetes: (8) CKD (chronic kidney disease) stage 3, GFR 30-59 ml/min: Cardiac catheterization demonstrated occlusion of both saphenous vein grafts to diagonal and circumflex. Drug-eluting stent implanted to the mid circumflex as detailed under separate report. The diagonal branch vessel is extremely small and 99% occluded. Continue medical management recommended at this time. Dual antiplatelet therapy must be continued for minimum of 6 months post percutaneous intervention, preferably 1 year. Postprocedural activity limitations as detailed below. Other cardiovascular medications will be continued as previously ordered. All questions answered to the satisfaction of both the patient and her son. I will arrange for close outpatient cardiology follow-up in [address] Walden. ACTIVITY RECOMMENDATIONS: It is common to feel weak and fatigue for a few days. * Do not drive or operate any motorized equipment for the next three days. * Limit stair usage (2 or 3 trips a day only) for the next three days. * Do not lift anything heavier than 10 pounds for the next three days. * Do not engage in vigorous exercise or any sports for the next five days. * You may shower the day after your procedure, but do not immerse the area for three days. Cleanse the site gently with soap and water. SPECIAL CARE INSTRUCTIONS: * You may replace the pressure dressing or band-aid the morning after the procedure. * After your procedure, it is normal to have a small bruise or small lump at the site. Examine your site daily for any change in the bruise or lump, redness, swelling, drainage or numbness. Notify your doctor if any change. BLEEDING: * If there is a small amount of bleeding at the site, lie down and apply firm pressure with a clean cloth for ten minutes. When the bleeding stops, lie quietly keeping the procedure limb straight for six hours. Notify your doctor as soon as possible. * If the bleeding does not stop after ten minutes or if there is a large amount of bleeding or spurting, call 911 immediately. Continue to lie down and hold firm pressure until help arrives. SKIN IRRITATION: * You may experience some redness and/or swelling in the area where radiation was administered. If any skin irritation occurs, please contact your family physician. FOLLOW UP VISIT: Follow-up with Dr. Walden in 1 to 2 weeks as scheduled. Subjective Patient seen and examined at the bedside. No recurrent chest discomfort overnight. No dysrhythmias on telemetry. Patient denies groin pain or discomfort. Tolerating diet and medications. Requesting discharge if possible. Has questions regarding postprocedural activity limitations. Review of Systems Review of Systems: All systems reviewed & are unremarkable except as noted in HPI & below Physical Exam Physical Exam: General: NAD, AAO x3, well nourished. HEENT: Normocephalic. Atraumatic. Conjunctiva pink, no scleral icterus. Neck: No carotid bruits, the carotid upstrokes are brisk. No JVD. No HJR Heart: Regular normal S-1 and S-2 no S-3 or S-4 gallop. Soft, 1/6 midsystolic murmur heard best the left sternal border. PMI is not displaced. No RV heave. Lungs: Clear bilateral without rales , rhonchi, or wheeze. Abdomen: Normal bowel sounds. Soft. Nontender. No masses or organomegaly. No abdominal bruits. Extremities: No groin ecchymosis or hematoma. No clubbing, cyanosis, or edema. Pulses: radial=2/4, Dorsalis pedis =2/4, posterior tibial=2/4. Neuro: Cranial nerves grossly intact. No focal motor deficit. Results & Data Vital Signs (Past 12 Hours) Vital Signs Temp Pulse Pulse Resp BP BP Pulse Ox 03/11/19 11:10 36.6 C 71 16 122/77 95 03/11/19 08:00 74 03/11/19 02:59 36.5 C 71 17 136/67 97 (1) CAD (coronary artery disease) Coronary Disease-Associated Artery/Lesion type: [place] artery [place] vs. transplanted heart: [place] heart
== END 2019-03-11 13:07 | disposition home or self-care (01) | DRG 247 ==
LOC: ED 09:38 → 2S 12:15
PROC: CLB.IPA (2019-03-10 14:00)

== ENCOUNTER 2020-05-11 17:15 | Inpatient (IN) ==
[2020-05-11] MEDS ORDERED: SODIUM CHLORIDE 0.9% 500 ML IV SCH (18:00)
--- NOTE | 2020-05-11 18:02 | Emergency Department Note ---
Impression & Plan Acute confusion, Facial droop, Weakness, CVA (cerebral vascular accident) ED Provider Note NAME: PATRICIA MC AGE: 79 SEX: F : 1940 ARRIVES VIA: Walk-In INFORMANT: [Patient][daughter] ED PROVIDER(S): [Zoltan Hargrove MD] CHIEF COMPLAINT: Confusion HISTORY OF PRESENT ILLNESS: The patient is a 79-year-old female who has had around a week of symptoms. A week ago, she developed a headache above her left eye. Shortly thereafter, she seemed more confused and had a harder time getting around. She was staggering. She went to her doctor's office and was diagnosed with a UTI. She was placed on antibiotics. Subsequently, her urine culture returned negative. On a conversation with the family today, the patient was referred to the ED as she has not improved. Patient feels off balance and confused. She denies any weakness. She denies cough, cold or congestion. There has been no chest pain or shortness of breath. No vomiting or diarrhea. She has not had urinary complaints. Patient's daughter has noticed a change in her mother's mentation. The patient herself has noticed some thickened/slurred speech. REVIEW OF SYSTEMS: See HPI for pertinent positives and negatives. A total of ten systems were reviewed and were otherwise negative. PMHx/PSHx: See Below SOCIAL HISTORY: See Below. PHYSICAL EXAM: GENERAL: Patient is in no acute distress. HEENT: No acute trauma, normocephalic atraumatic, mucous membranes moist, no nasal congestion, no scleral icterus. NECK: No stridor, no adenopathy, no meningismus, trachea is midline. LUNGS: Clear to auscultation bilaterally, no wheeze, no rhonchi, breath sounds equal. HEART: Without murmurs gallops or rubs, regular rate and rhythm. ABDOMEN: Soft, nontender, bowel sounds positive, no hernias, no peritonitis. EXTREMITIES: No cyanosis or edema, full range of motion of all the joints with out pain or difficulty, no signs for acute trauma. NEUROLOGIC: Oriented x 3. There is some thickening to her speech, there is a subtle right facial droop. No cerebellar dysfunction, no pronator drift, no lower extremity drift or cerebellar dysfunction. SKIN: No rash, no jaundice, no diaphoresis. DIFFERENTIAL DIAGNOSIS: Infection, dehydration, metabolic abnormality, hypo/hyperglycemia, intracranial bleeding, stroke, TIA, UTI, electrolyte disturbance, anemia, hypoxia, cardiac sources, intracerebral event, toxicologic, neurologic, as well as other pathologies. EMERGENCY DEPARTMENT COURSE/PROCEDURES: ECG: Indication was possible stroke. The ECG shows a normal sinus rhythm with LVH. The rate is 74. There is no ST elevation, no PVCs. The QTc is 472. Continuous Cardiac Monitoring: An order was placed for continuous cardiac monitoring. The monitor shows a rate of 72 with normal sinus rhythm. MEDICAL DECISION MAKING: There is no leukocytosis or concerning anemia. There is a normal platelet count. No significant electrolyte abnormality or kidney failure. No worrisome liver enzyme elevation. Patient appeared to be in a euthyroid state. ECG showed a sinus rhythm, no acute ischemia. Cardiac enzyme testing x1 is not consistent with acute cardiac injury. Chest film showed some atelectasis, no pneumonia. Urinalysis did not show evidence for infection. Brain CT did show s ome older stroke lesions on the left. These lesions were new as of a few years ago. On exam, the patient has some thickening to her speech, she had a right facial droop. Patient very likely has had a CVA. This would have occurred last week and of course, she is therefore not a candidate for TPA. I talked to the patient about her findings, I spoke with case management. The on-call hospitalist has been consulted. A stroke work-up is warranted. Of note, patient did receive a 500 cc saline bolus during her ED stay. She has been resting comfortably. Past Med/Surg History Medical History CAD (coronary artery disease) CKD (chronic kidney disease), stage III Diabetes mellitus, type II Dyslipidemia Essential hypertension History of non-ST elevation myocardial infarction (NSTEMI) 2017 Non-ST elevation [place] (NSTEMI) Osteoporosis Pulmonary hypertension Surgical History History of elbow surgery History of mitral valve replacement 2017 History of surgery on right wrist History of tonsillectomy and adenoidectomy S/P appendectomy S/P CABG x 2 2017 FOLLOW WITH [facility] S/P hysterectomy Family History Father Heart disease Mother Heart disease Stroke Brother Cancer Other No significant family history Social History Smoking Status: Never smoker Second Hand Exposure: No; Hx Alcohol Use: No Hx Substance Use: No Preferred Language: Danish Communication Ability: Effective 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 Beliefs That Will Affect Care: None Current Living Situation: Family Current Living Situation Comment: lives with daughter Other Information That Helps Us Care for You: No Feels Safe at Home: Yes Safety Concerns: Feels Safe At This Time Assistive Devices: Denture - Upper Allergies Allergies Allergy/AdvReac Type Severity Reaction Status Date / Time lisinopril Allergy Unknown COUGHING Unverified 05/11/20 19:35 Home Meds Home Medications Medication Instructions Recorded Confirmed alendronate 70 mg PO WK 03/10/19 05/11/20 aspirin [Aspirin Low Dose] 81 mg PO QAM 03/10/19 05/11/20 ergocalciferol (vitamin D2) 50,000 unit PO MONTHLY 03/10/19 05/11/20 [Vitamin D2] metoprolol tartrate 25 mg PO BID 03/10/19 05/11/20 famotidine 20 mg PO BID 05/11/20 05/11/20 fluticasone propionate [Flonase 2 spray INTRANASAL DAILY PRN 05/11/20 05/11/20 Allergy Relief] losartan [Cozaar] 75 mg PO DAILY 05/11/20 05/11/20 nitroglycerin [Nitrostat] 0.4 mg SUBLINGUAL UD PRN 05/11/20 05/11/20 omeprazole 20 mg PO DAILY 05/11/20 05/11/20 rosuvastatin [Crestor] 10 mg PO DAILY 05/11/20 05/11/20 Previous Rx's Medication Instructions Recorded metformin 1,000 mg PO BIDM #0 tab 03/11/19 Results & Data (ED) Vital Signs Vital Signs - 24 hr 05/11/20 17:25 05/11/20 17:45 05/11/20 17:50 Temperature 36.4 C L Temperature Source Oral Pulse Rate 82 73 75 Pulse Rate [Bilateral Apical] Respiratory Rate 18 15 18 Respiratory Effort / Characteristics Non-Labored Spontaneous Respiratory Depth Normal Respiratory Pattern Regular Blood Pressure 173/78 H 182/86 H Blood Pressure [Left Arm] Blood Pressure Mean 109 123 Blood Pressure Mean [Left Arm] Blood Pressure Position Sitting Pulse Oximetry 96 Oxygen Delivery Method Room Air Sepsis Recent Fever Within 48 Hours No Sepsis New/Unexplained Change in Mental Status N/A Sepsis Action Taken by Nursing No Action Required 05/11/20 18:00 05/11/20 18:01 05/11/20 18:30 Temperature Temperature Source Pulse Rate 74 76 75 Pulse Rate [Bilateral Apical] Respiratory Rate 17 22 17 Respiratory Effort / Characteristics Respiratory Depth Respiratory Pattern Blood Pressure 173/68 H Blood Pressure [Left Arm] Blood Pressure Mean 87 Blood Pressure Mean [Left Arm] Blood Pressure Position Pulse Oximetry Oxygen Delivery Method Sepsis Recent Fever Within 48 Hours Sepsis New/Unexplained Change in Mental Status Sepsis Action Taken by Nursing 05/11/20 18:39 05/11/20 19:05 05/11/20 19:06 Temperature Temperature Source Pulse Rate 79 78 Pulse Rate [Bilateral Apical] Respiratory Rate 15 18 Respiratory Effort / Characteristics Respiratory Depth Respiratory Pattern Blood Pressure 192/102 H Blood Pressure [Left Arm] Blood Pressure Mean 108 Blood Pressure Mean [Left Arm] Blood Pressure Position Pulse Oximetry 97 Oxygen Delivery Method Room Air Sepsis Recent Fever Within 48 Hours Sepsis New/Unexplained Change in Mental Status Sepsis Action Taken by Nursing 05/11/20 19:30 05/11/20 20:07 Temperature Temperature Source Pulse Rate Pulse Rate [Bilateral Apical] 71 68 Respiratory Rate 20 20 Respiratory Effort / Characteristics Respiratory Depth Respiratory Pattern Blood Pressure Blood Pressure [Left Arm] 180/107 H 184/88 H Blood Pressure Mean Blood Pressure Mean [Left Arm] 131 120 Blood Pressure Position Pulse Oximetry 99 97 Oxygen Delivery Method Room Air Room Air Sepsis Recent Fever Within 48 Hours Sepsis New/Unexplained Change in Mental Status Sepsis Action Taken by Retirement Medications Current Medication List: was personally reviewed by me Laboratory Data Attestation: I reviewed the patient's lab results. Result diagrams: 05/11/20 18:09 05/11/20 18:09 Lab Results 05/11/20 05/11/20 05/11/20 Range/Units 18:09 18:09 18:09 WBC 9.35 (4.8-10.8) K/uL RBC 4.31 (4.2-5.4) M/uL Hgb 12.3 (12.0-16.0) g/dL Hct 37.9 (37-47) % MCV 87.9 (80-100) fL MCH 28.5 (25-34) pg MCHC 32.5 (32-36) g/dL RDW Std Deviation 45.9 (36.4-46.3) fL RDW Coeff of Matt 14.2 (11.5-14.5) % Plt Count 213 (130-400) K/uL MPV 10.1 (7.4-10.4) fL Immature Gran % (Auto) 0.0 % Neut % (Auto) 50.7 % Lymph % (Auto) 35.0 % [place] % (Auto) 9.4 % Eos % (Auto) 4.0 % Baso % (Auto) 0.9 % Neut # (Auto) 4.75 (1.4-6.5) K/uL Lymph # (Auto) 3.27 (1.2-3.4) K/uL [place] # (Auto) 0.88 H (0.11-0.59) K/uL Eos # (Auto) 0.37 (0-0.5) K/uL Baso # (Auto) 0.08 (0-0.2) K/uL Immature Gran # (Auto) 0.00 (0.00-0.02) K/uL Sodium 136 (136-145) mmol/L Potassium 3.8 (3.5-5.1) mmol/L Chloride 106 (98-107) mmol/L Carbon Dioxide 23 (21-32) mmol/L Anion Gap 7.0 (3-11) BUN 21 H (7-18) mg/dl Creatinine 1.07 (0.6-1.2) mg/dl Est Cr Clr Drug Dosing 35.5 ml/min Est GFR ( Amer) 57.6 Est GFR (Non-Af Amer) 49.7 BUN/Creatinine Ratio 19.7 (10-20) Glucose 160 H (70-99) mg/dl Calcium 8.4 L (8.5-10.1) mg/dl Magnesium 1.9 (1.8-2.4) mg/dl Total Bilirubin 0.3 (0.2-1) mg/dl AST 11 L (15-37) U/L ALT 23 (12-78) U/L Alkaline Phosphatase 62 (45-117) U/L Ammonia 14.5 (11-32) umol/L Troponin I 0.029 (0-0.045) ng/ml Total Protein 6.8 (6.4-8.2) gm/dl Albumin 3.4 (3.4-5.0) gm/dl Globulin 3.4 (2.5-4.0) gm/dl Albumin/Globulin Ratio 1.0 (0.9-2) TSH 3.150 (0.300-4.500) uIu/ml Urine Color Urine Appearance (Clear) Urine pH (4.5-7.5) Ur Specific Eva (1.000-1.030) Urine Protein (Negative) Urine Glucose (UA) (Negative) Urine Ketones (Negative) Urine Blood (Negative) Urine Nitrite (Negative) Urine Bilirubin (Negative) Urine Urobilinogen (Negative) Ur Leukocyte Esterase (Negative) Urine WBC (Auto) (0-5) /hpf Urine RBC (Auto) (0-4) /hpf U Hyaline Cast (Auto) (0-5) /lpf U Epithel Cells (Auto) (0-5) /lpf Urine Bacteria (Auto) (Negative) 05/11/20 Range/Units 19:10 WBC (4.8-10.8) K/uL RBC (4.2-5.4) M/uL Hgb (12.0-16.0) g/dL Hct (37-47) % MCV (80-100) fL MCH (25-34) pg MCHC (32-36) g/dL RDW Std Deviation (36.4-46.3) fL RDW Coeff of Matt (11.5-14.5) % Plt Count (130-400) K/uL MPV (7.4-10.4) fL Immature Gran % (Auto) % Neut % (Auto) % Lymph % (Auto) % [place] % (Auto) % Eos % (Auto) % Baso % (Auto) % Neut # (Auto) (1.4-6.5) K/uL Lymph # (Auto) (1.2-3.4) K/uL [place] # (Auto) (0.11-0.59) K/uL Eos # (Auto) (0-0.5) K/uL Baso # (Auto) (0-0.2) K/uL Immature Gran # (Auto) (0.00-0.02) K/uL Sodium (136-145) mmol/L Potassium (3.5-5.1) mmol/L Chloride (98-107) mmol/L Carbon Dioxide (21-32) mmol/L Anion Gap (3-11) BUN (7-18) mg/dl Creatinine (0.6-1.2) mg/dl Est Cr Clr Drug Dosing ml/min Est GFR ( Amer) Est GFR (Non-Af Amer) BUN/Creatinine Ratio (10-20) Glucose (70-99) mg/dl Calcium (8.5-10.1) mg/dl Magnesium (1.8-2.4) mg/dl Total Bilirubin (0.2-1) mg/dl AST (15-37) U/L ALT (12-78) U/L Alkaline Phosphatase (45-117) U/L Ammonia (11-32) umol/L Troponin I (0-0.045) ng/ml Total Protein (6.4-8.2) gm/dl Albumin (3.4-5.0) gm/dl Globulin (2.5-4.0) gm/dl Albumin/Globulin Ratio (0.9-2) TSH (0.300-4.500) uIu/ml Urine Color Yellow Urine Appearance Clear (Clear) Urine pH 6.5 (4.5-7.5) Ur Specific Eva 1.020 (1.000-1.030) Urine Protein Negative (Negative) Urine Glucose (UA) Negative (Negative) Urine Ketones Negative (Negative) Urine Blood Negative (Negative) Urine Nitrite Negative (Negative) Urine Bilirubin Negative (Negative) Urine Urobilinogen Negative (Negative) Ur Leukocyte Esterase 1+ H (Negative) Urine WBC (Auto) 1-5 (0-5) /hpf Urine RBC (Auto) 0-4 (0-4) /hpf U Hyaline Cast (Auto) 0 (0-5) /lpf U Epithel Cells (Auto) >30 H (0-5) /lpf Urine Bacteria (Auto) Negative (Negative) Administered Medications Dextrose/Sodium Chloride (D5w And Nss) 1,000 mls @ 60 mls/hr IV .[id number] JULES Stop: 05/12/20 14:26 Last Admin: 05/11/20 22:08 Dose: 60 mls/hr Documented by: [id number] Metoprolol Tartrate (Metoprolol Tartrate 1 Mg/Ml Vial) 5 mg IV Q6 JULES Stop: 06/10/20 22:09 Last Admin: 05/11/20 22:20 Dose: 5 mg Documented by: [id number] Discontinued Medications Clopidogrel Bisulfate (Clopidogrel Bisulfate 75 Mg Tab) 75 mg PO NOW ONE Stop: 05/11/20 21:54 Last Admin: 05/11/20 22:34 Dose: Not Given Documented by: [id number] Gadobutrol (Gadobutrol 65ml Vial) 6 ml IV ONCE ONE Stop: 05/12/20 00:06 Last Admin: 05/11/20 23:54 Dose: 6 ml Documented by: [id number] Sodium Chloride (Nss) 500 mls @ 999 mls/hr IV .Q31M JULES Stop: 05/11/20 18:30 Last Infusion: 05/11/20 19:19 Dose: 0 mls/hr Documented by: [id number] Admin: 05/11/20 18:39 Dose: 999 mls/hr Documented by: [id number] Metoprolol Tartrate (Metoprolol Tartrate 25 Mg Tab) 25 mg PO BID JULES Stop: 06/10/20 21:14 Last Admin: 05/11/20 23:07 Dose: Not Given Documented by: [id number] Imaging Data Radiologist's Impression: CT head/brain wo con CLINICAL HISTORY: 79 years-old Female with confusion. Acutely altered mental status with confusion TECHNIQUE: Multiple axial CT images of the head were obtained without contrast. A dose lowering technique was utilized adhering to the principles of ALARA. CT DOSE: 537.48 mGy.cm COMPARISON: Head CT 07/03/2015 FINDINGS: No acute intracranial hemorrhage, midline shift, intracranial mass, hydrocephalus, territorial ischemia or abnormal extra-axial collection. Age-related involutional changes with chronic microvascular ischemic disease. 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 There is new hypodense foci of the left caudate and lentiform nuclei. Cerebral vascular calcifications. Remote lacunar infarct of the inferior right cerebellar hemisphere. The calvarium is intact. Bilateral lens replacement. The paranasal sinuses, mastoid air cells, and middle ear cavities are clear. IMPRESSION: 1. No acute intracranial hemorrhage, midline shift or territorial infarct. 2. Age-related involutional changes with chronic microvascular ischemic disease. 3. 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 Additionally, there is evidence of remote infarcts of the left caudate and lentiform nuclei w hich are new from 2015. XR chest 1V portable HISTORY: 79 years-old Female weakness acute weakness COMPARISON: Chest radiograph 03/10/2019 TECHNIQUE: Portable AP view of the chest FINDINGS: Cardiac silhouette is mildly enlarged, unchanged. Left atrial exclusion device. Prior median sternotomy. Mild subsegmental left lung base opacities. Calcified granulomata of the left upper lung. No pneumothorax, large pleural effusion or overt pulmonary edema. Bones of the chest appear grossly intact. IMPRESSION: 1. Mild subsegmental left lung base opacities favor atelectasis. Pneumonitis considered less likely. 2. Cardiomegaly without overt pulmonary edema. Discharge Plan Visit Data Chief Complaint: Confusion Stated Complaint: CONFUSION, PREV STROKE LIKE SYMPTOMS ED Provider: Zoltan Hargrove Discharge Problem: Acute confusion, Facial droop, Weakness, CVA (cerebral vascular accident) Patient Disposition: Admitted As Inpatient Condition: Good Discharge Instructions Interventions: ED Discharge Assessment Last Done: 05/11/20 21:01 Discharge Problem: CVA (cerebral vascular accident) Qualifiers: CVA mechanism: unspecified Qualified Code(s): I63.9 - Cerebral infarction, unspecified
[2020-05-11 18:27] LABS: Basophils # (auto) 0.08 K/uL (0-0.2); Basophils % (auto) 0.9 %; Eosinophils # (auto) 0.37 K/uL (0-0.5); Hematocrit (blood only) 37.9 % (37-47); Hemoglobin 12.3 g/dL (12.0-16.0); Lymphocytes # (auto) 3.27 K/uL (1.2-3.4); Mean Corpuscular Hemoglobin 28.5 pg (25-34); Mean Corpuscular Hgb Conc 32.5 g/dL (32-36); Mean Corpuscular Volume 87.9 fL (80-100); Mean Platelet Volume 10.1 fL (7.4-10.4); Monocytes # (auto) 0.88 K/uL (0.11-0.59); Monocytes % (auto) 9.4 %; Neutrophils # (auto) 4.75 K/uL (1.4-6.5); Neutrophils % (auto) 50.7 %; Platelet Count 213 K/uL (130-400); RDW Coefficient of Variation 14.2 % (11.5-14.5); RDW Standard Deviation 45.9 fL (36.4-46.3); Red Blood Count 4.31 M/uL (4.2-5.4); White Blood Count 9.35 K/uL (4.8-10.8)
--- NOTE | 2020-05-11 18:39 | CT Scan Report ---
CT head/brain wo con CLINICAL HISTORY: 79 years-old Female with confusion. Acutely altered mental status with confusion TECHNIQUE: Multiple axial CT images of the head were obtained without contrast. A dose lowering tech nique was utilized adhering to the principles of ALARA. CT DOSE: 537.48 mGy.cm COMPARISON: Head CT 07/03/2015 FINDINGS: No acute intracranial hemorrhage, midline shift, intracranial mass, hydrocephalus, territorial ischem ia or abnormal extra-axial collection. Age-related involutional changes with chronic microvascular is chemic disease. 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 There is new hypodense foci of the left caudate and lentiform nuclei. Cerebral vascular c alcifications. Remote lacunar infarct of the inferior right cerebellar hemisphere. The calvarium is intact. Bilateral lens replacement. The paranasal sinuses, mastoid air cells, and middle ear cavities are titi ar. IMPRESSION: 1. No acute intracranial hemorrhage, midline shift or territorial infarct. 2. Age-related involutional changes with chronic microvascular ischemic disease. 3. 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 ACT 112: Negative or not required by law. The above report was generated using voice recognition software. It may contain grammatical, syntax o r spelling errors. Electronically signed by: Hernandez Hurtado M.D. 05/11/2020 6:38 PM
[2020-05-11 18:53] LABS: Albumin Level 3.4 gm/dl (3.4-5.0); BUN Creatinine Ratio 19.7 (10-20); Calcium 8.4 mg/dl (8.5-10.1); Creatinine Clr Calc Pharmacy 35.5 ml/min; Est GFR (African American) 57.6; Est GFR (Non-African American) 49.7; Magnesium 1.9 mg/dl (1.8-2.4); Potassium 3.8 mmol/L (3.5-5.1)
[2020-05-11 19:03] LABS: Bilirubin,Total 0.3 mg/dl (0.2-1); Globulin 3.4 gm/dl (2.5-4.0); Thyroid Stimulating Hormone 3.15 uIu/ml (0.300-4.500); Total Protein 6.8 gm/dl (6.4-8.2); Troponin I 0.029 ng/ml (0-0.045)
--- NOTE | 2020-05-11 19:10 | XRay Report ---
XR chest 1V portable HISTORY: 79 years-old Female weakness acute weakness COMPARISON: Chest radiograph 03/10/2019 TECHNIQUE: Portable AP view of the chest FINDINGS: Cardiac silhouette is mildly enlarged, unchanged. Left atrial exclusion device. Prior median sternoto my. Mild subsegmental left lung base opacities. Calcified granulomata of the left upper lung. No pneu mothorax, large pleural effusion or overt pulmonary edema. Bones of the chest appear grossly intact. IMPRESSION: 1. Mild subsegmental left lung base opacities favor atelectasis. Pneumonitis considered less likely. 2. Cardiomegaly without overt pulmonary edema. ACT 112: Negative or not required by law. The above report was generated using voice recognition software. It may contain grammatical, syntax o r spelling errors. Electronically signed by: Hernandez Hurtado M.D. 05/11/2020 7:09 PM
[2020-05-11 19:34] LABS: Appearance Urine Clear (Clear); Bacteria Urine Automated Negative (Negative); Bilirubin Urine Negative (Negative); Blood Urine Negative (Negative); Cast Urine Automated 0 /lpf (0-5); Color Urine Yellow; Epithelial Cell Urine Auto >30 /lpf (0-5); Glucose Urine UA Negative (Negative); Ketones Urine Negative (Negative); Leukocyte Esterase Urine 1+ (Negative); Nitrite Urine Negative (Negative); Protein Urine Negative (Negative); RBC Urine Automated 0-4 /hpf (0-4); Urobilinogen Urine Negative (Negative); pH Urine 6.5 (4.5-7.5)
--- NOTE | 2020-05-11 20:25 | History & Physical Report ---
Date of Service May 11, 2020 Assessment & Plan (1) Facial droop: (2) Confusion: This is a 79-year-old female with PMH of DM II, h/o CAD s/p OSKAR x 1 in 03/03, h/o CABG x 2 in 2016, h/o bioprosthetic mitral valve replacement 09/22/2016, paroxysmal SVT, dyslipidemia and other medical problems listed below who presents with confusion and slurred speech over the past week. -Confusion, right facial droop and slurred speech over the past week, history of plavix discontinuation in Mar 2020 -Concern for subacute CVA with CT head findings:no acute intracranial hemorrhage, midline shift or territorial infarct. Age-related involutional changes with chronic microvascular ischemic disease. 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 Additionally, there is evidence of remote infarcts of the left caudate and lentiform nuclei which are new from 2014 -MRI brain w/wo contrast, carotid ultrasound, echo w/ bubble study pending -Continue aspirin, resume plavix. Will discontinue low dose Crestor and start Atorvastatin 40mg daily for possible stroke as well as CAD history -Neuro checks, PT, OT services consulted. Will keep NPO for now with facial droop with D5 + NSS overnight. Speech eval in AM -Consulted neurology (3) CAD (coronary artery disease): History of CAD with drug-eluting stent placed in February 2019 and completed 1 year of dual antiplatelet therapy, at which point Plavix was discontinued -Continue aspirin, metoprolol, starting high dose statin (4) S/P MVR (mitral valve replacement): Was on postoperative anticoagulation in 2016 but has since been discontinued (5) Essential hypertension: BP 173/104. Patient is at least 1 week since symptom onset so can safely gradually lower BP to goal of 140/90 -Continue metoprolol, added IV hydralazine Q6H PRN for SBP >180 (6) Diabetes mellitus, type II: A1c of 6.4 in January 2020. Will repeat a1c in AM -Hold home agents -SSI while in-patient -BSG AC HS and Q6H while NPO (7) SVT (supraventricular tachycardia): NSR. Continue metoprolol (8) CKD (chronic kidney disease) stage 3, GFR 30-59 ml/min: Kidney function at baseline. Continue to monitor with daily BMP DVT Ppx: SCDs for now. Plan to start SQ heparin for VTE tomorrow Code status: FULL PCP: Philipp Dispo: Admitted to [facility]. Discharge planning ordered. Patient seen in collaboration with Dr. Cueva. Please see addendum. History of Present Illness Chief Complaint: slurred speech, confusion Primary Care Provider: Magy Segal MD This is a 79-year-old female with PMH of DM II, h/o CAD s/p OSKAR x 1 in 03/03, h/o CABG x 2 in 2016, h/o bioprosthetic mitral valve replacement 09/22/2016, paroxysmal SVT, dyslipidemia and other medical problems listed below who presents with confusion and slurred speech over the past week. Patient was seen by PCP on 05/06 for confusion and was thought to have a UTI. Urine culture came back negative but confusion persisted. Also noted to have a R facial droop today. Daughter called PCP who directed patient to come to ED for further evaluation. Currently endorses confusion and dizziness. Still able to answer most questions appropriately but does not seem as sharp as baseline, per daughter. Seemed "wobbly" over the weekend but now ambulating without issue at baseline. No problems with swallowing. Does have history of mini strokes in the past but denies any residual deficits. Has history of CAD with drug-eluting stent placed in February 2019 and completed 1 year of dual antiplatelet therapy, at which point Plavix was discontinued. Takes baby aspirin daily. Denies any fever, chills, headache, lightheadedness, chest pain, shortness of breath, nausea, vomiting, abdominal pain, dysuria, diarrhea or constipation. Allergies Allergy/AdvReac Type Severity Reaction Status Date / Time lisinopril Allergy Unknown COUGHING Unverified 05/11/20 19:35 Home Medications Home Medications Medication Instructions Recorded Confirmed Type alendronate 70 mg PO WK 03/10/19 05/11/20 History aspirin [Aspirin Low Dose] 81 mg PO QAM 03/10/19 05/11/20 History ergocalciferol (vitamin D2) 50,000 unit PO MONTHLY 03/10/19 05/11/20 History [Vitamin D2] metoprolol tartrate 25 mg PO BID 03/10/19 05/11/20 History metformin 1,000 mg PO BIDM #0 tab 03/11/19 05/11/20 Rx famotidine 20 mg PO BID 05/11/20 05/11/20 History fluticasone propionate [Flonase 2 spray INTRANASAL DAILY PRN 05/11/20 05/11/20 History Allergy Relief] losartan [Cozaar] 75 mg PO DAILY 05/11/20 05/11/20 History nitroglycerin [Nitrostat] 0.4 mg SUBLINGUAL UD PRN 05/11/20 05/11/20 History omeprazole 20 mg PO DAILY 05/11/20 05/11/20 History rosuvastatin [Crestor] 10 mg PO DAILY 05/11/20 05/11/20 History Past Med/Surg History Medical History (Updated 05/11/20 @ 21:34 by Shayna Avalos PA-C) CAD (coronary artery disease) CKD (chronic kidney disease), stage III Diabetes mellitus, type II Dyslipidemia Essential hypertension History of non-ST elevation myocardial infarction (NSTEMI) 2017 Non-ST elevation ND (NSTEMI) Osteoporosis Pulmonary hypertension Surgical History History of elbow surgery History of mitral valve replacement 2017 History of surgery on right wrist History of tonsillectomy and adenoidectomy S/P appendectomy S/P CABG x 2 2017 FOLLOW WITH BHARAT S/P hysterectomy Family History Father Heart disease Mother Heart disease Stroke Brother Cancer Other No significant family history Social History Smoking Status: Never smoker Second Hand Exposure: No; Hx Alcohol Use: No Hx Substance Use: No Preferred Language: Tamazight Communication Ability: Effective Workers Compensation Legal Secretary Required: No Beliefs That Will Affect Care: None Current Living Situation: Family Current Living Situation Comment: lives with daughter Other Information That Helps Us Care for You: No Feels Safe at Home: Yes Safety Concerns: Feels Safe At This Time Assistive Devices: Denture - Upper Review of Systems Review of Systems: At least ten systems reviewed and negative except as noted in the HPI. Physical Exam Physical Exam: General Appearance: WD/WN, vitals as above, NAD, sitting up in bed, pleasant, conversing easily Head: normocephalic, atraumatic Eyes: normal inspection, PERRL, conjunctivae normal, anicteric sclerae ENT: external ear and nose normal, oropharynx normal Neck: normal visual inspection, trachea midline, no thyromegaly Respiratory: normal respiratory effort, lungs clear to auscultation, no wheeze, rales, rhonchi. No accessory muscle use Cardiovascular: regular rate, rhythm, systolic murmur, normal peripheral pulses, no BLE edema. Vessels: no JVD Chest: normal inspection of chest Abdomen/GI: normal bowel sounds, soft, nontender, no hepatosplenomegaly Extremities/Musculoskeletal: no cyanosis or clubbing, extremities motor strength 5/5 Neurologic: PERRL, EOMI, accommodation nl, + R facial droop, no dysarthria, CN's II-XI intact bilaterally and moves all extremities Psychiatric: A+Ox3 but not to situation, euthymic affect Skin: no rashes, normal color, warm/dry Results & Data Results & Data ([facility]) Vital Signs (Past 12 Hours) Vital Signs Temp Pulse Pulse Resp BP BP Pulse Ox 05/11/20 20:07 68 20 184/88 H 97 05/11/20 19:30 71 20 180/107 H 99 05/11/20 19:06 78 18 192/102 H 05/11/20 19:05 79 15 05/11/20 18:39 97 05/11/20 18:30 75 17 05/11/20 18:01 76 22 05/11/20 18:00 74 17 173/68 H 05/11/20 17:50 75 18 05/11/20 17:45 73 15 182/86 H 05/11/20 17:25 36.4 C L 82 18 173/78 H 96 Laboratory Results Short CBC 05/11/20 Range/Units 18:09 WBC 9.35 (4.8-10.8) K/uL Hgb 12.3 (12.0-16.0) g/dL Hct 37.9 (37-47) % Plt Count 213 (130-400) K/uL BMP 05/11/20 18:09 Sodium 136 Potassium 3.8 Chloride 106 Carbon Dioxide 23 BUN 21 H Creatinine 1.07 Glucose 160 H Calcium 8.4 L Cardiac Enzymes 05/11/20 Range/Units 18:09 Troponin I 0.029 (0-0.045) ng/ml Liver Function 05/11/20 Range/Units 18:09 Total Bilirubin 0.3 (0.2-1) mg/dl AST 11 L (15-37) U/L ALT 23 (12-78) U/L Alkaline Phosphatase 62 (45-117) U/L Albumin 3.4 (3.4-5.0) gm/dl Urine 05/11/20 Range/Units 19:10 Urine Color Yellow Urine Appearance Clear (Clear) Urine pH 6.5 (4.5-7.5) Ur Specific [place] 1.020 (1.000-1.030) Urine Protein Negative (Negative) Urine Glucose (UA) Negative (Negative) Diagnostic Findings CT head: IMPRESSION: 1. No acute intracranial hemorrhage, midline shift or territorial infarct. 2. Age-related involutional changes with chronic microvascular ischemic disease. 3. 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 CXR: IMPRESSION: 1. Mild subsegmental left lung base opacities favor atelectasis. Pneumonitis considered less likely. 2. Cardiomegaly without overt pulmonary edema. Code Status & VTE Plan VTE Prophylaxis Plan VTE Prophylaxis will be ordered: Yes Supervising Physician Co-Signing Physician Notes Attending Addendum: care coordinated with MURALI Avalos please refer to her notes for full details, I agree with her notes patient seen and examined, records reviewed by myself as well on exam, patient seen sitting up in bed, comfortable, alert, oriented x 1-2 mostly confused denies headache, dizziness, chest pain, dyspnea, focal neuro symptoms no other symptoms VS noted and reviewed General- oriented x1-2, not in distress, speaks in sentences with no effort or accessory muscle use Eyes- anicteric Neck- no JVD Lungs- clear breath sounds bilaterally, no rales/wheezes Heart- normal rate, regular rhythm; no murmurs Abdomen- normal bowel sounds, nondistended, soft, nontender Extremities- no pretibial edema, no calf tenderness Neuro- alert, oriented x1-2; mild right facial droop otherwise CN 2-12 grossly intact; motor 5/5, sensation 100% on all ext, no other gross focal neurologic deficits Skin- warm & dry WBC 9.3 Hg [address] head: 1. No acute intracranial hemorrhage, midline shift or territorial infarct. 2. Age-related involutional changes with chronic microvascular ischemic disease. 3. 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 ASSESSMENT AND PLAN CONFUSION, RIGHT FACIAL DROOP, R/O CVA symptom onset [address] head: old infarcts check Brain MRI, Carotid Doppler US, Echo add Plavix to Aspirin change Crestor to Lipitor Neuro consult HYPERTENSION uncontrolled NPO for now, change Metoprolol to IV Hydralazine PRN other diagnoses and plan of care as per MURALI Avalso's notes Jacobo Cueva MD (1) CAD (coronary artery disease) Coronary Disease-Associated Artery/Lesion type: [place] artery [place] vs. transplanted heart: [place] heart
[2020-05-11] MEDS ORDERED: METOPROLOL TARTRATE 25 MG TAB PO SCH (21:15)
[2020-05-11] MEDS ORDERED: D5W AND NSS 1,000 ML IV SCH (21:47)
[2020-05-11] MEDS ORDERED: hydrALAZINE HCL 20 MG/ML VIAL IV PRN (21:47)
[2020-05-11] MEDS ORDERED: FLUTICASONE PROPIONATE NA SPR 16 GM BTL NAE PRN (21:47)
[2020-05-11] MEDS ORDERED: NITROGLYCERIN SL 0.4 MG/TAB TAB SL PRN (21:47)
[2020-05-11] MEDS ORDERED: ACETAMINOPHEN 325 MG TAB PO PRN (21:47)
[2020-05-11] MEDS ORDERED: PHARMACIST DISCHARGE MED REC CONSULT PRN (21:47)
[2020-05-11] MEDS ORDERED: CLOPIDOGREL BISULFATE 75 MG TAB PO ONE (21:53)
[2020-05-11] MEDS ORDERED: DEXTROSE 50% 50 ML SYRINGE IV PRN (21:54)
[2020-05-11] MEDS ORDERED: GLUCAGON FOR INJ 1 MG VIAL SQ PRN (21:54)
[2020-05-11] MEDS ORDERED: GLUCOSE 10 TABS/TUBE PO PRN (21:54)
[2020-05-11] MEDS ORDERED: CARBOHYDRATES FOR HYPOGLYCEMIA PO PRN (21:54)
[2020-05-11] MEDS ORDERED: GLUCOSE 40% GEL 15 GM TUBE PO PRN (21:54)
[2020-05-11] MEDS: METOPROLOL TARTRATE 1 MG/ML VIAL IV SCH (22:20)
[2020-05-12] MEDS ORDERED: GADOBUTROL 65ML VIAL IV ONE (00:05)
[2020-05-12] MEDS: METOPROLOL TARTRATE 1 MG/ML VIAL IV SCH ×4 (05:29→23:42)
[2020-05-12 07:03] LABS: Hematocrit (blood only) 37.4 % (37-47); Hemoglobin 12.5 g/dL (12.0-16.0); Mean Corpuscular Hemoglobin 29.3 pg (25-34); Mean Corpuscular Hgb Conc 33.4 g/dL (32-36); Mean Corpuscular Volume 87.8 fL (80-100); Mean Platelet Volume 10.1 fL (7.4-10.4); Platelet Count 226 K/uL (130-400); RDW Coefficient of Variation 14.2 % (11.5-14.5); RDW Standard Deviation 45.8 fL (36.4-46.3); Red Blood Count 4.26 M/uL (4.2-5.4); White Blood Count 9.41 K/uL (4.8-10.8)
--- NOTE | 2020-05-12 07:23 | Magnetic Resonance Report ---
MRI OF THE BRAIN WITHOUT AND WITH IV CONTRAST CLINICAL HISTORY: R facial droop, slurred speech COMPARISON STUDY: 07/03/2015, noncontrast head CT dated 05/11/2020 TECHNIQUE: MRI of the brain was performed from the vertex to the skull base utilizing various T1 and T2 weighted sequences. Following the IV administration of 6 mL of Gadavist contrast, additional enhan varinder images were obtained. FINDINGS: Sagittal T1, axial diffusion, proton density and T2 weighted axial, coronal FLAIR, and pre and post a xial T1-weighted images were acquired. These were supplemented with post gadolinium coronal T1 weight ed images. No intra or extra-axial mass lesions are visualized. There is a 17 mm focus of restricted water diffusion within the left basal ganglia consistent with a subacute infarct. There is mild ventricular prominence, finding which is felt to be secondary to volume loss. Proton density T2-weighted and FLAIR images reveal moderate foci of increased T2 signal within the wh ite matter, likely on a small vessel basis. There is an old left frontal lobe infarct. There are old cerebellar lacunar infarcts. There are no abnormal flow voids. There is mild left atrial ganglia enhancement, finding which is felt to be secondary to a subacute in farct. IMPRESSION: 1. 17 mm focus of restricted water diffusion within the left basal ganglia. Given the appearance on t he CT scan, and the postcontrast enhancement, this is felt to represent a subacute infarct 2. No evidence of intracranial mass 3. Moderate white matter disease with areas of old infarction involving the left frontal lobe and cer ebellar hemispheres. ACT 112: Negative or not required by law. Electronically signed by: Buzz Cedeno M.D. 05/12/2020 7:22 AM
--- NOTE | 2020-05-12 07:26 | Ultrasound Report ---
ULTRASOUND OF THE CAROTID ARTERIES CLINICAL HISTORY: Stroke COMPARISON STUDY: July 03, 2015 TECHNIQUE: Real-time, grayscale, and color Doppler sonography of the carotid arteries was performed. Imaging reviewed in the transverse and longitudinal planes. NASCET criteria was utilized for stenosis calcification. FINDINGS: There is moderate atherosclerotic plaque present . The peak systolic velocity within the right internal carotid artery is 43 cm/sec. The systolic velocity ratio of right internal to common carotid artery is 0.7. The peak systolic velocity within the left internal carotid artery is 83 cm/sec. The systolic velocity ratio left internal to common carotid artery is 1.8. There is elevation of the peak systolic velocity within the left external carotid arteries suggesting a left external carotid artery stenosis Antegrade flow is seen in the vertebral arteries. The external carotid arteries are patent. IMPRESSION: No evidence of hemodynamically significant internal carotid stenosis. ACT 112: Negative or not required by law. Electronically signed by: Buzz Cedeno M.D. 05/12/2020 7:25 AM
[2020-05-12 07:37] LABS: BUN Creatinine Ratio 17.9 (10-20); Calcium 8.1 mg/dl (8.5-10.1); Creatinine Clr Calc Pharmacy 50.6 ml/min; Est GFR (African American) 88.5; Est GFR (Non-African American) 76.3
[2020-05-12] MEDS: POTASSIUM ACETATE 10 MEQ in 0.9 % SODIUM CHLORIDE 100 ML IV SCH ×4 (09:08→12:37)
[2020-05-12 09:45] LABS: Estimated Average Glucose 143 mg/dl; Hemoglobin A1C 6.6 % (4.5-5.6)
[2020-05-12] MEDS: INSULIN ASPART 100 UNITS/ML 3 ML PEN SC SCH ×4 (10:05→21:01)
--- NOTE | 2020-05-12 10:11 | Hospitalist Progress Note ---
Date of Service May 12, 2020 Assessment & Plan (1) Facial droop: (2) Confusion: 79-year-old female with PMH of DM II, h/o CAD s/p OSKAR x 1 in 03/03, h/o CABG x 2 in 2016, h/o bioprosthetic mitral valve replacement 09/22/2016, paroxysmal SVT, dyslipidemia who presented with confusion and slurred speech over the past week. -Confusion, right facial droop and slurred speech over the past week, history of plavix discontinuation in Mar 2020 -CT head findings:no acute intracranial hemorrhage, midline shift or territorial infarct. Age-related involutional changes with chronic microvascular ischemic disease. 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 Plavix resumed on admission -Currently on atorvastatin 40mg daily -Appreciate neurology evaluation -PT/OT/RECREATIONAL THERAPIST evaluation -Follow up Echo A1c is 6.6 Hypokalemia this AM. Replete (3) CAD (coronary artery disease): History of CAD with drug-eluting stent placed in February 2019 and completed 1 year of dual antiplatelet therapy, at which point Plavix was discontinued -Continue aspirin, metoprolol, statin (4) S/P MVR (mitral valve replacement): Was on postoperative anticoagulation in 2016 but has since been discontinued (5) Essential hypertension: BP 173/104. Patient is at least 1 week since symptom onset so can safely gradually lower BP to goal of 140/90 -Continue metoprolol -On IV hydralazine Q6H PRN for SBP >180 (6) Diabetes mellitus, type II: A1c of 6.4 in January 2020. A1c is 6.6 now -Continue to hold home agents -SSI while in-patient -BSG Q6H while NPO (7) SVT (supraventricular tachycardia): NSR. Continue metoprolol (8) CKD (chronic kidney disease) stage 3, GFR 30-59 ml/min: Kidney function at baseline. Continue to monitor with daily BMP DVT Ppx: Heparin sq Code status: FULL PCP: Philipp Admission and Anticipated Discharge Date Admission Date: May 11, 2020 Subjective Patient seen and examined Patient has word finding difficulty. Denied any active complaints ROS responds with "yes and no" Poor insight into clinical condition Review of Systems Constitutional: no fever and no chills Eyes: no worsening vision and no problem reported Ear, Nose, Mouth, Throat: no problem reported Respiratory: no cough, no dyspnea and no wheezing Cardiovascular: no chest pain, no dyspnea, no dyspnea on exertion and no orthopnea Gastrointestinal: no abdominal pain, no nausea, no vomiting and no dysphagia Genitourinary: no dysuria, no urinary frequency, no urinary urgency and no hematuria Neurologic: no localized weakness, no paralysis and no loss of sensation +word finding difficulty Psychiatric: no problem reported Physical Exam Constitutional: well developed; no acute distress +occasional word finding difficulty Eyes: PERRL, conjunctivae normal, anicteric sclerae ENMT: external ear and nose normal, oropharynx normal Respiratory: normal respiratory effort, lungs clear to auscultation Cardiovascular: Rate/Rhythm: regular rate and regular rhythm S1 S2 Gastrointestinal (Abdomen): normal bowel sounds, soft, nontender, no hepatosplenomegaly Neurologic: AOx3. +word finding difficulty but able to answer questions appropriately. Right nasolabial fold more flattened compared to right. No sensory deficits to light touch. No focal deficits in power in extremities. Follows commands appropriately. Psychiatric: A+Ox3, euthymic affect Results & Data Results & Data ([facility]) Vital Signs (Past 12 Hours) Vital Signs Temp Pulse Pulse Resp BP BP Pulse Ox 05/12/20 08:00 36.4 C L 64 18 154/71 H 98 05/12/20 07:24 65 05/12/20 05:29 72 126/74 05/12/20 04:30 36.5 C 69 20 126/74 97 05/12/20 00:00 71 05/11/20 23:00 37.0 C 96 H 20 125/83 92 05/11/20 22:20 73 192/90 H Laboratory Results Laboratory Results - last 24 hr 05/11/20 05/11/20 05/11/20 18:09 18:09 18:09 WBC 9.35 RBC 4.31 Hgb 12.3 Hct 37.9 MCV 87.9 MCH 28.5 MCHC 32.5 RDW Std Deviation 45.9 RDW Coeff of Matt 14.2 Plt Count 213 MPV 10.1 Immature Gran % (Auto) 0.0 Neut % (Auto) 50.7 Lymph % (Auto) 35.0 Stanley % (Auto) 9.4 Eos % (Auto) 4.0 Baso % (Auto) 0.9 Neut # (Auto) 4.75 Lymph # (Auto) 3.27 Stanley # (Auto) 0.88 H Eos # (Auto) 0.37 Baso # (Auto) 0.08 Immature Gran # (Auto) 0.00 Sodium 136 Potassium 3.8 Chloride 106 Carbon Dioxide 23 Anion Gap 7.0 BUN 21 H Creatinine 1.07 Est Cr Clr Drug Dosing 35.5 Est GFR ( Amer) 57.6 Est GFR (Non-Af Amer) 49.7 BUN/Creatinine Ratio 19.7 Glucose 160 H POC Glucose Estimat Average Glucose Hemoglobin A1c Calcium 8.4 L Magnesium 1.9 Total Bilirubin 0.3 AST 11 L ALT 23 Alkaline Phosphatase 62 Ammonia 14.5 Troponin I 0.029 Total Protein 6.8 Albumin 3.4 Globulin 3.4 Albumin/Globulin Ratio 1.0 Triglycerides Cholesterol LDL Cholesterol, Calc VLDL Cholesterol, Calc HDL Cholesterol Cholesterol/HDL Ratio TSH 3.150 Urine Color Urine Appearance Urine pH Ur Specific [place] Urine Protein Urine Glucose (UA) Urine Ketones Urine Blood Urine Nitrite Urine Bilirubin Urine Urobilinogen Ur Leukocyte Esterase Urine WBC (Auto) Urine RBC (Auto) U Hyaline Cast (Auto) U Epithel Cells (Auto) Urine Bacteria (Auto) 05/11/20 05/12/20 05/12/20 19:10 06:30 06:30 WBC 9.41 RBC 4.26 Hgb 12.5 Hct 37.4 MCV 87.8 MCH 29.3 MCHC 33.4 RDW Std Deviation 45.8 RDW Coeff of Matt 14.2 Plt Count 226 MPV 10.1 Immature Gran % (Auto) Neut % (Auto) Lymph % (Auto) Stanley % (Auto) Eos % (Auto) Baso % (Auto) Neut # (Auto) Lymph # (Auto) Stanley # (Auto) Eos # (Auto) Baso # (Auto) Immature Gran # (Auto) Sodium 139 Potassium 3.0 L D Chloride 108 H Carbon Dioxide 27 Anion Gap 4.0 BUN 13 Creatinine 0.75 D Est Cr Clr Drug Dosing 50.6 Est GFR ( Amer) 88.5 Est GFR (Non-Af Amer) 76.3 BUN/Creatinine Ratio 17.9 Glucose 129 H POC Glucose Estimat Average Glucose Hemoglobin A1c Calcium 8.1 L Magnesium Total Bilirubin AST ALT Alkaline Phosphatase Ammonia Troponin I Total Protein Albumin Globulin Albumin/Globulin Ratio Triglycerides 224 H Cholesterol 108 LDL Cholesterol, Calc 26 VLDL Cholesterol, Calc 45 HDL Cholesterol 37 Cholesterol/HDL Ratio 3 TSH Urine Color Yellow Urine Appearance Clear Urine pH 6.5 Ur Specific [place] 1.020 Urine Protein Negative Urine Glucose (UA) Negative Urine Ketones Negative Urine Blood Negative Urine Nitrite Negative Urine Bilirubin Negative Urine Urobilinogen Negative Ur Leukocyte Esterase 1+ H Urine WBC (Auto) 1-5 Urine RBC (Auto) 0-4 U Hyaline Cast (Auto) 0 U Epithel Cells (Auto) >30 H Urine Bacteria (Auto) Negative 05/12/20 05/12/20 06:30 07:50 WBC RBC Hgb Hct MCV MCH MCHC RDW Std Deviation RDW Coeff of Matt Plt Count MPV Immature Gran % (Auto) Neut % (Auto) Lymph % (Auto) [place] % (Auto) Eos % (Auto) Baso % (Auto) Neut # (Auto) Lymph # (Auto) Stanley # (Auto) Eos # (Auto) Baso # (Auto) Immature Gran # (Auto) Sodium Potassium Chloride Carbon Dioxide Anion Gap BUN Creatinine Est Cr Clr Drug Dosing Est GFR ( Amer) Est GFR (Non-Af Amer) BUN/Creatinine Ratio Glucose POC Glucose 126 H Estimat Average Glucose 143 Hemoglobin A1c 6.6 H Calcium Magnesium Total Bilirubin AST ALT Alkaline Phosphatase Ammonia Troponin I Total Protein Albumin Globulin Albumin/Globulin Ratio Triglycerides Cholesterol LDL Cholesterol, Calc VLDL Cholesterol, Calc HDL Cholesterol Cholesterol/HDL Ratio TSH Urine Color Urine Appearance Urine pH Ur Specific [place] Urine Protein Urine Glucose (UA) Urine Ketones Urine Blood Urine Nitrite Urine Bilirubin Urine Urobilinogen Ur Leukocyte Esterase Urine WBC (Auto) Urine RBC (Auto) U Hyaline Cast (Auto) U Epithel Cells (Auto) Urine Bacteria (Auto) Diagnostic Findings MRI BRAIN Sagittal T1, axial diffusion, proton density and T2 weighted axial, coronal FLAIR, and pre and post axial T1-weighted images were acquired. These were supplemented with post gadolinium coronal T1 weighted images. No intra or extra-axial mass lesions are visualized. There is a 17 mm focus of restricted water diffusion within the left basal ganglia consistent with a subacute infarct. There is mild ventricular prominence, finding which is felt to be secondary to volume loss. Proton density T2-weighted and FLAIR images reveal moderate foci of increased T2 signal within the white matter, likely on a small vessel basis. There is an old left frontal lobe infarct. There are old cerebellar lacunar infarcts. There are no abnormal flow voids. There is mild left atrial ganglia enhancement, finding which is felt to be secondary to a subacute infarct. IMPRESSION: 1. 17 mm focus of restricted water diffusion within the left basal ganglia. Given the appearance on the CT scan, and the postcontrast enhancement, this is felt to represent a subacute infarct 2. No evidence of intracranial mass (1) CAD (coronary artery disease) Coronary Disease-Associated Artery/Lesion type: [place] artery [place] vs. transplanted heart: [place] heart
[2020-05-12] MEDS: FAMOTIDINE 20 MG TAB PO SCH ×2 (13:34→21:01)
[2020-05-12] MEDS: PANTOprazole 40 MG TAB PO SCH (13:34)
[2020-05-12] MEDS: ATORVASTATIN 40 MG TAB PO SCH (13:35)
[2020-05-12] MEDS: CLOPIDOGREL BISULFATE 75 MG TAB PO SCH (13:35)
[2020-05-12] MEDS: LOSARTAN POTASSIUM 25 MG TAB PO SCH (13:35)
[2020-05-12] MEDS: ASPIRIN 81 MG ECTAB PO SCH (13:35)
[2020-05-12] MEDS: HEPARIN SOD 5,000 UNIT/0.5 ML VIAL SQ SCH ×2 (14:47→21:01)
--- NOTE | 2020-05-12 15:47 | History and Physical Report ---
DATE OF ADMISSION: 05/12/2020 NEUROLOGY CONSULTATION NOTE CHIEF COMPLAINT: Facial droop/confusion. HISTORY OF PRESENT ILLNESS: A 79-year-old woman with a history of type 2 diabetes, CAD status post stent in 2019, history of CABG in 2017 and bioprosthetic mitral valve replacement as well as dyslipidemia, admitted to the hospital yesterday with confusion and slurred speech over the last 7 days. The patient was seen by the primary care provider on 05/06/2020 for confusion and was found thought to have a urinary tract infection. Urine cultures came back negative, but confusion persisted. She was noted to have a right facial droop yesterday. The PCP then directed the patient to go to the Emergency Department for further evaluation. In the Emergency Room Department, she was noted to be confused and complaining of dizziness. However, she was able to answer most questions appropriately, although not as sharp as she would at baseline per daughter. She was walking somewhat difficult earlier in the week, but upon ambulating yesterday, she was at her baseline. She does have a history of transient ischemic attack. At one point, she was on dual antiplatelet therapy; however, is now only on aspirin 81 mg daily. Plavix was discontinued. She denied any shortness of breath, nausea, vomiting, fever, chills, headache, lightheadedness, abdominal pain, diarrhea or constipation. Neurology was consulted upon admission for this confusion and facial droop. ALLERGIES: LISINOPRIL. HOME MEDICATIONS: Aspirin 81 mg daily, vitamin D, metoprolol, metformin, Flonase, losartan, nitroglycerin, omeprazole, Crestor. PAST MEDICAL HISTORY: Coronary artery disease, chronic kidney disease, diabetes, dyslipidemia, hypertension, history of myocardial infarction, osteoporosis, pulmonary hypertension. PAST SURGICAL HISTORY: Elbow surgery, mitral valve replacement, surgery on the right wrist, tonsillectomy, adenoidectomy, appendectomy, CABG x2, hysterectomy. FAMILY HISTORY: Father had heart disease. Mother had heart disease and a stroke. Brother had cancer. SOCIAL HISTORY: She is a nonsmoker, denies alcohol. She lives with her daughter. REVIEW OF SYSTEMS: All review of systems was negative except as noted above in the HPI. PHYSICAL EXAMINATION: VITAL SIGNS: Blood pressure 162/80, pulse is 80, respiratory rate 18, temperature is 36.4 degrees Celsius, oxygen saturation is 98% on room air. GENERAL: The patient appears stated age, no distress. Appears chronically ill. HEENT: Her head is atraumatic and normocephalic. Normal eyelids and normal conjunctivae. NECK: Supple. LUNGS: Normal respiratory effort. CARDIOVASCULAR: Normal cardiac pulses. ABDOMEN: Nondistended. SKIN: No skin rash. PSYCHIATRIC: Normal mood and normal affect. NEUROLOGIC: She is awake, alert and oriented to person. Disoriented to age. Her attention is decreased. Her knowledge is poor. Comprehension is intact. Speech is soft. Speech is non fluent. Pupils are symmetric. Eyes are midline. Facial sensation intact. No facial asymmetry at rest, although subtle right facial droop with smile. Hearing is intact. Palate is symmetric. Shoulder shrug is normal. Tongue is midline. Gait deferred. No tremor or myoclonic jerks. Mild intention tremor with right finger to nose testing. Intact to light touch. Muscle tone is normal, 5/5 throughout in terms of muscle strength testing. Reflexes show a negative Sonya sign and no ankle clonus. DIAGNOSTIC TESTING AND LABORATORY VALUES: WBC 9.41, hemoglobin 12.5, platelet count 226. Sodium is 139, potassium 3.0, chloride 108, BUN is 13, creatinine 0.75, glucose 129, hemoglobin A1c is 6.6. Calcium is 8.1. LDL cholesterol is 26. TSH is 3.15. Urinalysis showed 1+ leukocyte esterase, greater than 30 epithelial cells. MRI of the brain with and without contrast shows an acute to subacute left basal ganglia ischemic stroke. No evidence of intracranial mass. Moderate white matter disease with areas of old infarction involving the left frontal lobe and cerebellar hemispheres. Carotid ultrasound showed no evidence of hemodynamically significant internal carotid stenosis. Head CT noncontrast showed no acute intracranial hemorrhage, midline shift, or territory infarct. Age-related involutional changes with chronic microvascular ischemic disease. Encephalomalacia from the remote infarct of the left frontal lobe. 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 ASSESSMENT AND PLAN: A 79-year-old woman admitted with an acute to subacute left middle cerebral artery ischemic stroke, probably involving the lenticulostriate arteries. Appearance of the stroke on MRI is concerning for small vessel etiology. The patient with known multiple stroke risk factors including peripheral vascular disease. Carotid ultrasound was without evidence of any hemodynamically significant stenosis. Would recommend CTA of the head and neck for further evaluation. Recommend to continue telemetry while inpatient. Recommend a systolic blood pressure less than 140 and diastolic blood pressure less than 90 with start and continue dual antiplatelet therapy, aspirin 81 mg daily and Plavix 75 mg daily. Would continue home dose of Lipitor 40 mg daily. Agree with PT, OT evaluation for physical therapy, rehabilitation needs. Would recommend a repeat transthoracic echocardiogram to evaluate for any signs of cardiac thrombus. Otherwise, the patient will require Neurology followup in 8 weeks as an outpatient. Please consult me with any additional questions or concerns. MTDD
[2020-05-12] MEDS ORDERED: OPTIRAY 320 125ml IV ONE (18:02)
--- NOTE | 2020-05-12 18:26 | CT Scan Report ---
HEAD & NECK CTA HISTORY: Weakness. Left basal ganglia stroke. TECHNIQUE: Multiaxial CT images of the head were performed following the intravenous administration o f contrast to evaluate the major cerebral vessels. Multiaxial CT images of the neck were also perform ed following the intravenous administration of contrast to evaluate the major cervical vessels. Maxim um intensity projection images were also obtained. A dose lowering technique was utilized adhering to the principles of ALARA. COMPARISON: Brain MRI 05/11/2020. Head CT 05/11/2020. FINDINGS: Redemonstration of the acute to subacute left basal ganglia infarct. Mild atrophy and microvascular i schemic changes are again noted. Old left frontal lobe infarct is also unchanged. Visualized distal v ertebral arteries, and basilar artery are widely patent. There is no occlusion or aneurysm seen withi n the bilateral ACAs, MCAs, or box lidder. Bilateral box lidder are slightly hypoplastic. The major dural venous sinuses appear patent. Mild calcified plaque and mild narrowing within the bilateral supraclinoid ICAs. There is also mild narrowing withi n the proximal bilateral MCAs. The right A1 segment is hypoplastic in comparison to the left. The aortic arch and proximal great vessels are widely patent. Mild focal narrowing at the takeoff o f the right subclavian artery due to the calcified plaque at this location. The bilateral common tran tid arteries and bilateral vertebral arteries are widely patent. There is moderate calcified plaque w ithin the bilateral carotid bifurcations. This results in approximately 50% narrowing at the takeoff of the left internal carotid artery. No central stenosis within the right internal carotid artery. IMPRESSION: 1. Redemonstration of the acute to subacute left basal ganglia infarct. 2. Mild narrowing within the bilateral supraclinoid ICAs and bilateral proximal MCAs. 3. No occlusion identified within the [place]. 4. Approximately 50% stenosis at the origin of the left internal carotid artery. 5. The right carotid arteries and vertebral arteries are widely patent. ACT 112: Negative or not required by law. Electronically signed by: Manny Forrest M.D. 05/12/2020 6:24 PM
--- NOTE | 2020-05-12 18:26 | CT Scan Report ---
HEAD & NECK CTA HISTORY: Weakness. Left basal ganglia stroke. TECHNIQUE: Multiaxial CT images of the head were performed following the intravenous administration o f contrast to evaluate the major cerebral vessels. Multiaxial CT images of the neck were also perform ed following the intravenous administration of contrast to evaluate the major cervical vessels. Maxim um intensity projection images were also obtained. A dose lowering technique was utilized adhering to the principles of ALARA. COMPARISON: Brain MRI 05/11/2020. Head CT 05/11/2020. FINDINGS: Redemonstration of the acute to subacute left basal ganglia infarct. Mild atrophy and microvascular i schemic changes are again noted. Old left frontal lobe infarct is also unchanged. Visualized distal v ertebral arteries, and basilar artery are widely patent. There is no occlusion or aneurysm seen withi n the bilateral ACAs, MCAs, or extension edger. Bilateral extension edger are slightly hypoplastic. The major dural venous sinuses appear patent. Mild calcified plaque and mild narrowing within the bilateral supraclinoid ICAs. There is also mild narrowing withi n the proximal bilateral MCAs. The right A1 segment is hypoplastic in comparison to the left. The aortic arch and proximal great vessels are widely patent. Mild focal narrowing at the takeoff o f the right subclavian artery due to the calcified plaque at this location. The bilateral common tran tid arteries and bilateral vertebral arteries are widely patent. There is moderate calcified plaque w ithin the bilateral carotid bifurcations. This results in approximately 50% narrowing at the takeoff of the left internal carotid artery. No central stenosis within the right internal carotid artery. IMPRESSION: 1. Redemonstration of the acute to subacute left basal ganglia infarct. 2. Mild narrowing within the bilateral supraclinoid ICAs and bilateral proximal MCAs. 3. No occlusion identified within the [place]. 4. Approximately 50% stenosis at the origin of the left internal carotid artery. 5. The right carotid arteries and vertebral arteries are widely patent. ACT 112: Negative or not required by law. Electronically signed by: Manny Forrest M.D. 05/12/2020 6:24 PM
[2020-05-13] MEDS ORDERED: HALOPERIDOL LACTATE 5 MG/ML 1 ML VIAL IM STA (00:30)
--- NOTE | 2020-05-13 05:45 | Electrocardiogram Report ---
Test Reason : Blood Pressure : / mmHG Vent. Rate : 074 BPM Atrial Rate : 074 BPM P-R Int : 204 ms QRS Dur : 096 ms QT Int : 426 ms P-R-T Axes : 000 -43 093 degrees QTc Int : 472 ms Normal sinus rhythm Left axis deviation Left ventricular hypertrophy with repolarization abnormality Abnormal ECG When compared with ECG of 11-MAR-2019 06:32, Nonspecific T wave abnormality no longer evident in Anterior leads T wave inversion now evident in Lateral leads Confirmed by Miguel A Colmenares ([id number]) on 05/13/2020 5:45:01 AM Referred By: Magy Segal Confirmed By:Miguel A Colmenares
[2020-05-13] MEDS: METOPROLOL TARTRATE 1 MG/ML VIAL IV SCH ×2 (06:35→13:43)
[2020-05-13] MEDS: HEPARIN SOD 5,000 UNIT/0.5 ML VIAL SQ SCH ×2 (06:39→13:36)
[2020-05-13 06:47] LABS: Hematocrit (blood only) 40.6 % (37-47); Hemoglobin 13.6 g/dL (12.0-16.0); Mean Corpuscular Hgb Conc 33.5 g/dL (32-36); Mean Corpuscular Volume 86.6 fL (80-100); Mean Platelet Volume 10.3 fL (7.4-10.4); Platelet Count 233 K/uL (130-400); RDW Coefficient of Variation 14.1 % (11.5-14.5); RDW Standard Deviation 44.1 fL (36.4-46.3); Red Blood Count 4.69 M/uL (4.2-5.4); White Blood Count 10.47 K/uL (4.8-10.8)
[2020-05-13 07:16] LABS: BUN Creatinine Ratio 13.9 (10-20); Calcium 8.5 mg/dl (8.5-10.1); Creatinine Clr Calc Pharmacy 46.3 ml/min; Est GFR (African American) 79.4; Est GFR (Non-African American) 68.5; Potassium 3.2 mmol/L (3.5-5.1)
[2020-05-13] MEDS ORDERED: amLODIPine BESYLATE 5 MG TAB PO ONE (08:16)
[2020-05-13] MEDS ORDERED: POTASSIUM CHLORIDE PWD 20 MEQ PACK PO ONE (08:19)
[2020-05-13] MEDS: PANTOprazole 40 MG TAB PO SCH (08:28)
[2020-05-13] MEDS: LOSARTAN POTASSIUM 25 MG TAB PO SCH (08:29)
[2020-05-13] MEDS: ASPIRIN 81 MG ECTAB PO SCH (08:29)
[2020-05-13] MEDS: CLOPIDOGREL BISULFATE 75 MG TAB PO SCH (08:29)
[2020-05-13] MEDS: ATORVASTATIN 40 MG TAB PO SCH (08:30)
[2020-05-13] MEDS: FAMOTIDINE 20 MG TAB PO SCH (08:30)
[2020-05-13] MEDS: INSULIN ASPART 100 UNITS/ML 3 ML PEN SC SCH ×2 (08:34→13:35)
[2020-05-13] MEDS ORDERED: STROKE PATIENT DISCHARGE STA (13:31)
--- NOTE | 2020-05-13 13:32 | Discharge Summary ---
Date of Service May 13, 2020 Admission HPI Per Admitting Provider This is a 79-year-old female with PMH of DM II, h/o CAD s/p OSKAR x 1 in 03/03, h/o CABG x 2 in 2016, h/o bioprosthetic mitral valve replacement 09/22/2016, paroxysmal SVT, dyslipidemia and other medical problems listed below who presents with confusion and slurred speech over the past week. Patient was seen by PCP on 05/06 for confusion and was thought to have a UTI. Urine culture came back negative but confusion persisted. Also noted to have a R facial droop today. Daughter called PCP who directed patient to come to ED for further evaluation. Currently endorses confusion and dizziness. Still able to answer most questions appropriately but does not seem as sharp as baseline, per daughter. Seemed "wobbly" over the weekend but now ambulating without issue at baseline. No problems with swallowing. Does have history of mini strokes in the past but denies any residual deficits. Has history of CAD with drug-eluting stent placed in February 2019 and completed 1 year of dual antiplatelet therapy, at which point Plavix was discontinued. Takes baby aspirin daily. Denies any fever, chills, headache, lightheadedness, chest pain, shortness of breath, nausea, vomiting, abdominal pain, dysuria, diarrhea or constipation. Admission Exam Per Admitting Provider General Appearance: WD/WN, vitals as above, NAD, sitting up in bed, pleasant, conversing easily Head: normocephalic, atraumatic Eyes: normal inspection, PERRL, conjunctivae normal, anicteric sclerae ENT: external ear and nose normal, oropharynx normal Neck: normal visual inspection, trachea midline, no thyromegaly Respiratory: normal respiratory effort, lungs clear to auscultation, no wheeze, rales, rhonchi. No accessory muscle use Cardiovascular: regular rate, rhythm, systolic murmur, normal peripheral pulses, no BLE edema. Vessels: no JVD Chest: normal inspection of chest Abdomen/GI: normal bowel sounds, soft, nontender, no hepatosplenomegaly Extremities/Musculoskeletal: no cyanosis or clubbing, extremities motor strength 5/5 Neurologic: PERRL, EOMI, accommodation nl, + R facial droop, no dysarthria, CN's II-XI intact bilaterally and moves all extremities Psychiatric: A+Ox3 but not to situation, euthymic affect Skin: no rashes, normal color, warm/dry Principal Diagnosis Cerebrovascular accident Discharge Exam Constitutional well developed; no acute distress Eyes PERRL, conjunctivae normal, anicteric sclerae ENMT external ear and nose normal, oropharynx normal Respiratory normal respiratory effort, lungs clear to auscultation Cardiovascular Rate/Rhythm: regular rate and regular rhythm Gastrointestinal (Abdomen) normal bowel sounds, soft, nontender, no hepatosplenomegaly Neurologic Alert and oriented to person, place and year, right facial droop, mild word finding difficulty, power is 5/5 in all extremities Psychiatric Orientation: alert, oriented to person and oriented to place Affect: euthymic affect Discharge Data Allergies Allergy/AdvReac Type Severity Reaction Status Date / Time lisinopril Allergy Unknown COUGHING Unverified 05/11/20 19:35 Consultations 05/11/20 19:49 ED Decision to Admit Stat 05/11/20 21:47 Consult Case Management - Discharge Planning Routine 05/12/20 08:00 Consult Neurology Routine Ordered Studies 05/11/20 17:58 CT head/brain wo con Stat No acute intracranial hemorrhage, midline shift, intracranial mass, hydrocephalus, territorial ischemia or abnormal extra-axial collection. Age- related involutional changes with chronic microvascular ischemic disease. 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 There is new hypodense foci of the left caudate and lentiform nuclei. Cerebral vascular calcifications. Remote lacunar infarct of the inferior right cerebellar hemisphere. The calvarium is intact. Bilateral lens replacement. The paranasal sinuses, mastoid air cells, and middle ear cavities are clear. IMPRESSION: 1. No acute intracranial hemorrhage, midline shift or territorial infarct. 2. Age-related involutional changes with chronic microvascular ischemic disease. 3. 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 05/11/20 21:47 MR brain wo/w con Routine FINDINGS: Sagittal T1, axial diffusion, proton density and T2 weighted axial, coronal FLAIR, and pre and post axial T1-weighted images were acquired. These were supplemented with post gadolinium coronal T1 weighted images. No intra or extra-axial mass lesions are visualized. There is a 17 mm focus of restricted water diffusion within the left basal ganglia consistent with a subacute infarct. There is mild ventricular prominence, finding which is felt to be secondary to volume loss. Proton density T2-weighted and FLAIR images reveal moderate foci of increased T2 signal within the white matter, likely on a small vessel basis. There is an old left frontal lobe infarct. There are old cerebellar lacunar infarcts. There are no abnormal flow voids. There is mild left atrial ganglia enhancement, finding which is felt to be secondary to a subacute infarct. IMPRESSION: 1. 17 mm focus of restricted water diffusion within the left basal ganglia. Given the appearance on the CT scan, and the postcontrast enhancement, this is felt to represent a subacute infarct 2. No evidence of intracranial mass 3. Moderate white matter disease with areas of old infarction involving the left frontal lobe and cerebellar hemispheres. 05/12/20 17:01 CT angio head w con Urgent CT angio neck with con Urgent Redemonstration of the acute to subacute left basal ganglia infarct. Mild atrophy and microvascular ischemic changes are again noted. Old left frontal lobe infarct is also unchanged. Visualized distal vertebral arteries, and basilar artery are widely patent. There is no occlusion or aneurysm seen within the bilateral ACAs, MCAs, or seamer. Bilateral seamer are slightly hypoplastic. The major dural venous sinuses appear patent. Mild calcified plaque and mild narrowing within the bilateral supraclinoid ICAs. There is also mild narrowing within the proximal bilateral MCAs. The right A1 segment is hypoplastic in comparison to the left. The aortic arch and proximal great vessels are widely patent. Mild focal narrowing at the takeoff of the right subclavian artery due to the calcified plaque at this location. The bilateral common carotid arteries and bilateral cindy tebral arteries are widely patent. There is moderate calcified plaque within the bilateral carotid bifurcations. This results in approximately 50% narrowing at the takeoff of the left internal carotid artery. No central stenosis within the right internal carotid artery. IMPRESSION: 1. Redemonstration of the acute to subacute left basal ganglia infarct. 2. Mild narrowing within the bilateral supraclinoid ICAs and bilateral proximal MCAs. 3. No occlusion identified within the [place] of [place]. 4. Approximately 50% stenosis at the origin of the left internal carotid artery. 5. The right carotid arteries and vertebral arteries are widely patent. 05/12/20 21:56 US carotid doppler BI Routine There is moderate atherosclerotic plaque present . The peak systolic velocity within the right internal carotid artery is 43 cm/sec. The systolic velocity ratio of right internal to common carotid artery is 0.7. The peak systolic velocity within the left internal carotid artery is 83 cm/sec. The systolic velocity ratio left internal to common carotid artery is 1.8. There is elevation of the peak systolic velocity within the left external carotid arteries suggesting a left external carotid artery stenosis Antegrade flow is seen in the vertebral arteries. The external carotid arteries are patent. IMPRESSION: No evidence of hemodynamically significant internal carotid stenosis. Hospital Course (1) CVA (cerebral vascular accident): (2) Facial droop: (3) Confusion: 79-year-old female with PMH of DM II, h/o CAD s/p OSKAR x 1 in 03/03, h/o CABG x 2 in 2016, h/o bioprosthetic mitral valve replacement 09/22/2016, paroxysmal SVT, dyslipidemia who presented with confusion and slurred speech over the past week. -Confusion, right facial droop and slurred speech over the past week, history of plavix discontinuation in Mar 2020 -CT head findings:no acute intracranial hemorrhage, midline shift or territorial infarct. Age-related involutional changes with chronic microvascular ischemic disease. 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 Additionally, there is evidence of remote infarcts of the left caudate and lentiform nuclei which are new from 2014 -MRI brain w/wo contrast showing subacute infarct in left basal ganglia as well as old infarct -Continue aspirin. Was started on plavix on admission. Had 2D Echo which showed LA moderate dilatation with bioprosthetic mitral valve, EF 55-60% I discussed patient with Labor Economics Professor Dr Chang. Based on recurrent strokes on imaging and Echo findings, patient's stroke is likely embolic in nature. He recommended initiating anticoagulation with warfarin and prompt follow up with Cardiology outpatient. Patient may need holter monitoring or zio patch I discussed this with Dr Pryor, neurologist. Plavix initially started was discontinued. Patient discharged on aspirin 81mg and Warfarin 5mg daily. Educated patient's daughter Ivett who was at bedside about findings, need for anticoagulation, warfarin basics and monitoring INR. Patient to get INR test in 3 days [facility] coordinatorDonavan who will make appointment with Anticoagulation clinic and provided daughter's phone number for contact. -Patient was initially started on atorvastatin 40mg on admission. However, after discussion with daughter, increased home crestor from 10 to 20mg daily Was evaluated by PT/OT/COMMUNITY SERVICE SPECIALIST while inpatient -Patient needs to follow up with Neurology in 8 weeks Was Hypokalemic yesterday at 3. Repleted. K was 3.2 this AM. More repletion given. Follow up with PCP (4) CAD (coronary artery disease): History of CAD with drug-eluting stent placed in February 2019 and completed 1 year of dual antiplatelet therapy, at which point Plavix was discontinued -Continue aspirin, metoprolol, statin (5) S/P MVR (mitral valve replacement): Was on postoperative anticoagulation in 2016 but has since been discontinued (6) Essential hypertension: BP was elevated even on home losartan 75mg daily Amlodipine 2.5mg was added to home antihypertensives. To follow up with PCP who will continue to monitor and optimize regimen (7) Diabetes mellitus, type II: A1c of 6.4 in January 2020. A1c is 6.6 now -Continue home antidiabetics (8) SVT (supraventricular tachycardia): NSR. Continue metoprolol (9) CKD (chronic kidney disease) stage 3, GFR 30-59 ml/min: Kidney function at baseline. Continue to monitor with daily BMP Total Time Total Time Spent Total Time Spent (In Minutes): 50 Total Time Includes: Examination of the Patient, Discharge Planning, Medication Reconciliation and Communication With Other Providers Discharge Plan Discharge Items Patient Disposition: Home - Home Health Services Reason For Visit: STROKE LIKE SYMPTOMS Discharge Diagnosis: Stroke Condition on Discharge: Good Activity: Resume your previous activity Non-emergency contact: Primary Care Provider and Neurologist Call non-emergency contact if: you have any medication questions and your symptoms worsen Follow-up/Referrals: Brooke Myles PA-C [Physician Leather Production Worker] - (Date & Time 07/13/2020 11:20 AM Provider Brooke Myles PA-C Department Neurology [facility] ) Magy Segal MD [Primary Care Provider] - (Date & Time 05/18/2020 11:20 AM Provider Magy Segal MD Department General Internal Medicine [facility] ) Diet: Carb Consistent or DM2 and Heart Healthy Ambulatory Orders: Prothrombin Time INR (Routine) Timeframe: 3 Days Location: Determined by Patient Ordered By: Joie Saeed Attending Provider Instructions: Ms Dejesus. You were brought to the hospital due to confusion and facial droop. You were evaluated and found to have a stroke. You are to continue taking aspirin daily. You are to start taking warfarin. This is a blood thinner. It is very important that you do regular tests to monitor INR. Please do the first one in 3 days and follow up results with anticoagulation clinic Your crestor was changed from 10mg to 20mg daily. A new blood pressure medication, amlodipine was added to your medication. Please take medications as prescribed. Please follow up with your Primary Doctor in 1 week Please follow up with Neurology office in 8 weeks. It was a pleasure taking care of you. Pending Studies at Discharge: No Stand-Alone Forms: Medications to Prevent Stroke, My [facility] [address], Smoking Cessation Medications and DC Order Prescriptions: New amlodipine 2.5 mg tablet 2.5 mg PO DAILY Qty: 30 RF: 0 rosuvastatin [Crestor] 20 mg tablet 20 mg PO DAILY Qty: 30 RF: 0 warfarin 5 mg tablet 5 mg PO DAILY Qty: 30 RF: 0 Continued fluticasone propionate [Flonase Allergy Relief] 50 mcg/actuation spray,suspension 2 spray INTRANASAL DAILY PRN (Reason: Nasal Congestion) RF: 0 losartan [Cozaar] 50 mg tablet 75 mg PO DAILY RF: 0 famotidine 20 mg Tablet 20 mg PO BID RF: 0 nitroglycerin [Nitrostat] 0.4 mg Tablet, Sublingual 0.4 mg sublingual UD PRN (Reason: Chest Pain) RF: 0 omeprazole 20 mg capsule,delayed release(DR/EC) 20 mg PO DAILY RF: 0 aspirin [Aspirin Low Dose] 81 mg Tablet,Delayed Release (Dr/Ec) 81 mg PO QAM 30 Days Qty: 30 RF: 0 alendronate 70 mg tablet 70 mg PO WK RF: 0 ergocalciferol (vitamin D2) [Vitamin D2] 50,000 unit Capsule 50,000 unit PO MONTHLY RF: 0 metoprolol tartrate 25 mg tablet 25 mg PO BID RF: 0 metformin 500 mg tablet extended release 24 hr 1,000 mg PO BIDM Qty: 0 RF: 0 Discontinued rosuvastatin [Crestor] 10 mg tablet 10 mg PO DAILY RF: 0 Discharge Orders: Discharge Order (Routine); Ordered 05/13/20 Ordered By: Joie Jaramillo/Other Patient Handouts: What to Know When TakingWarfarin, Managing Type 2 Diabetes, Warfarin tablets Admission Data Admit Date/Time: 05/11/20 20:24 Attending Provider: Joie Kam I. Admit Provider: Jacobo Cueva Primary Care Provider: Magy Segal Other Providers: Chintan Pryor ; Jacobo Cueva ; [facility] Other Interventions: Discharge Summary Assessment (RN) Last Done: 05/13/20 13:50
--- NOTE | 2020-05-13 15:06 | Pharmacy Report ---
Pharmacist Stroke Counseling - Date of Service May 13, 2020 - Scope: Pharmacy has been consulted to provide medication discharge counseling for this patient admitted with ischemic stroke as per the Pharmacist Discharge Counseling for Stroke Patients Protocol. - Medications on Discharge: Home Medications Medication Instructions Recorded Confirmed alendronate 70 mg PO WK 03/10/19 05/11/20 ergocalciferol (vitamin D2) 50,000 unit PO MONTHLY 03/10/19 05/11/20 [Vitamin D2] metoprolol tartrate 25 mg PO BID 03/10/19 05/11/20 famotidine 20 mg PO BID 05/11/20 05/11/20 fluticasone propionate [Flonase 2 spray INTRANASAL DAILY PRN 05/11/20 05/11/20 Allergy Relief] losartan [Cozaar] 75 mg PO DAILY 05/11/20 05/11/20 nitroglycerin [Nitrostat] 0.4 mg SUBLINGUAL UD PRN 05/11/20 05/11/20 omeprazole 20 mg PO DAILY 05/11/20 05/11/20 New Rx's Medication Instructions Recorded metformin 1,000 mg PO BIDM #0 tab 03/11/19 amlodipine 2.5 mg PO DAILY #30 tab 05/13/20 aspirin [Aspirin Low Dose] 81 mg PO QAM 30 Days #30 tab 05/13/20 rosuvastatin [Crestor] 20 mg PO DAILY #30 tab 05/13/20 warfarin 5 mg PO DAILY #30 tab 05/13/20 - Action: The above medications, specifically ones for stroke treatment/prophylaxis, have been reviewed in detail with the patient and/or patient farm loan representative(s) prior to discharge. This includes indication, common adverse reactions, drug interactions, and medication administration. Medication counseling has been employed using the teach-back method to ensure understanding. - Outcome: The patient and/or patient farm loan representative(s) have demonstrated understanding of the medications. Additional comments: * Counseled patient and daughter regarding new medications/medication changes * Patient previously took warfarin (several years ago) and is familiar with the general principles of keeping a consistent diet, frequent INR monitoring, etc. * Referral made to [facility] for warfarin management (likely Sunday for first visit) * Rosuvastatin dose increased to 20 mg, patient to self-monitor for new onset muscle pains and weaknesses * Daughter will be helping patient manage her medications, do not anticipate any issues upon discharge * Pillbox provided to patient Thank you for allowing pharmacy to be involved in the care of this patient. Please call [phone] with any additional questions
[2020-05-14] MEDS ORDERED: ALENDRONATE SODIUM 70 MG TAB PO SCH (06:00)
[2020-05-20] MEDS ORDERED: ERGOCALCIFEROL 50,000 UNITS 1250 MCG CAP PO SCH (09:00)
== END 2020-05-13 14:56 | disposition home health service (06) | DRG 65 ==
LOC: ED 17:15 → 2N 20:24 → SUATTDRO 20:24 → 2N 21:01

== ENCOUNTER 2023-07-28 21:37 | Inpatient (IN) ==
--- OUTSIDE RECORDS SUMMARY | 2023-07-28 21:44 | External Medical Summary ---
Author Name Unknown Address Unknown Organization [id number]:LABORATORY [facility] [place] - [address] [place] [id number] Laboratory Report Ordering Provider Test Date Status MIGUEL MACHUCA 06/15/2023 11:35:14 Final Observation Date Value Abnormality Reference (Units ) Status Folic Acid 06/15/2023 11:35:14 15.3 >4.5 (ng/ mL) Final Performing Location LABORATORY [facility] - [address] [place] [address]
--- OUTSIDE RECORDS SUMMARY | 2023-07-28 21:44 | External Medical Summary ---
Author Name Unknown Address Unknown Organization [id number]:[facility] - [address] [place] [id number] Laboratory Report Ordering Provider Test Date Status DANISHA LOPEZ 06/21/2023 08:09:00 Final Standing order for pt/inr.
Please draw pt/inr every 1 to 4 weeks as requested
Results to [facility]

Warfarin Therapy
INR: 2.0-3.0 conventional anticoagulation
INR: 2.5-3.5 high intensity anticoagulation Observation Date Value Abnormality Reference (Units ) Status PT 06/21/2023 08:09:00 25.5 Above high normal 11 .6-15.2 (seconds) Final INR 06/21/2023 08:09:00 2.3 Above high normal 0. 8-1.2 Final Performing Location [facility]AT[facility] [place] [id number]
--- OUTSIDE RECORDS SUMMARY | 2023-07-28 21:44 | External Medical Summary | Summary of Care ---
Author Name Unknown Organization [facility] Address [address] [facility] [place] [address] Phone [phone] Care Team Providers Care Physicist [employer] Name Role Phone Magy Segal MD Primary Care Provider + Reason for Visit * Reason Comments Dosage Adjustment Via Phone (anticoag Cl inic) Encounter Details Date Type Department Care Team (Latest Contact Info) Description 07/04/2023 6:00 AM EST Anticoagulation Pharmacy Call Center [phone] [place] [phone] [facility] [phone] [facility] [place] [address] S/P MVR (mitral valve replacement)*; Bioprosthetic mitral valve replacement, current hospitalization Allergies Active Allergy Reactions Criticality Noted Date Comments Haseeb Inhibitors Cough 04/04/2010 documented as of this encounter (statuses as of 07/04/2023) Medications Medication Sig Dispensed Refills Start Date End Date Status aspirin 81 MG chewable tablet Take 1 Tab by mouth daily. 30 Tab 3 09/28/2016 Active OneTouch Delica Lancets 33GIndications:Type 2 diabetes mellitus with hemoglobin A1c goal of less than 7.5% ([facility]) Test blood sugar once daily 100 Each 3 06/15/2020 Active OneTouch Verio In Vitro Strip (Glucose Blood)Indications:T ype 2 diabetes mellitus with hemoglobin A1c goal of less than 7.5% (HCC) Test blood sugar once daily 100 Strip 3 07/21/2020 Active Fluticasone Propionate 50 MCG/ACT Nasal SuspensionIndicatio ns:Bronchitis, complicated Administer into each nostril 2 Sprays in the morning. 9.9 mL 2 08/30/2021 Active Additional Information Patient taking differently:2 Roy Each Nostril Daily(AM),As needed, Informant: Child, Reported on 08/29/2022 Losartan Potassium 50 MG Oral Tablet (Cozaar) TAKE ONE AND ONE-HALF TABLET BY MOUTH DAILY 135 Tablet 1 02/14/2023 Active glipiZIDE 5 MG Oral Tablet (Glucotrol) Take 1 Tablet by mouth in the morning. 30 minutes before a meal. 30 Tablet 5 02/22/2023 Active Metoprolol Tartrate 25 MG Oral Tablet (Lopressor)Indicati ons:Essential hypertension with goal blood pressure less than 140/90,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 TAKE 1 TABLET BY MOUTH TWICE DAILY 180 Tablet 1 03/30/2023 Active Warfarin Sodium 5 MG Oral Tablet (Jantoven)Indicatio ns:Coronary artery disease involving [place] coronary artery of [place] heart without angina pectoris,S/P MVR (mitral valve replacement) TAKE ONE TABLET BY MOUTH DAILY or as directed by coag clinic 90 Tablet 3 03/30/2023 Active Famotidine 20 MG Oral Tablet (Pepcid) TAKE ONE TABLET BY MOUTH IN THE MORNING AND ONE BEFORE BEDTIME 180 Tablet 3 04/03/2023 Active Additional Information Patient not taking.Reported on 05/21/2023 Loratadine 10 MG Oral Tablet (Claritin)Indicatio ns:Acute otitis media, left Take 1 Tablet by mouth in the morning. 0 05/21/2023 Active predniSONE 10 MG Oral Tablet (Deltasone)Indicati ons:Acute otitis media, left,Fullness in ear, bilateral,Decreased hearing of both ears Take 4 tabs for 2 days, 3 tabs for 2 days, 2 tabs for 2 days 1 tab for 2 days Do not start before May 22, 2023. 20 Tablet 0 05/22/2023 Active amLODIPine Besylate 2.5 MG Oral Tablet (Norvasc) TAKE 1 TABLET BY MOUTH ONCE DAILY 90 Tablet 3 06/19/2023 Active Rosuvastatin Calcium 20 MG Oral Tablet (Crestor)Indication s:Dyslipidemia, goal LDL below 70 TAKE 1 TABLET BY MOUTH ONCE DAILY 90 Tablet 3 07/03/2023 Active documented as of this encounter (statuses as of 07/04/2023) Active Problems Problem Noted Date Diagnosed Date Diabetes mellitus due to und erlying condition with stage 3 chronic kidney disease, without long-term current use of insulin 08/30/2021 Bronchitis, complicated 08/30/2021 Iron deficiency anemia 08/30/2021 Chronic kidney disease, stage 3a 12/28/2020 Overview: Per CKD protocol PSVT (paroxysmal supraventricular tachycardia) 0 12/02/2020 Type 2 diabetes mellitus wit h stage 3a chronic kidney disease 11/23/2020 Overview: Per CKD protocol Diabetes mellitus due to und erlying condition with stage 3a chronic kidney disease 11/23/2020 Overview: Per CKD protocol Bioprosthetic mitral valve r eplacement, current hospitalization 05/13/2020 Partial idiopathic epilepsy with seizures of localized onset, not intractable, with status epilepticus 08/08/2019 Risk and functional assessment 07/22/2018 HTN, goal below 140/90 01/18/2018 High risk for fracture due to osteoporosis by DE XA scan 01/18/2018 Aortic atherosclerosis 01/18/2018 Hx of actinic keratosis 08/27/2017 History of non-ST elevation myocardial infarctio n (NSTEMI) 07/20/2017 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 current use of 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 therapy 0 10/03/2016 Overview: ICD-10 update of inactive term S/P MVR (mitral valve replacement) 09/28/2016 Overview: Bioprosthetic 29mm epic valve Coronary artery disease invo lving mohegan coronary artery of mohe[place] heart without angina pectoris 09/12/2016 Overview: 80% mid L cx 80% ostial diag #1 Severe MS MVA 0.97 cm2 Pulmonary hypertension 09/12/2016 Overview: Mild on cath 09/01 Essential hypertension with goal blood pressure less than 140/90 04/25/2016 Kidney disease, chronic, stage III (GFR 30-59 ml /min) 12/04/2011 Overview: Per CKD protocol #1 ADVANCE DIRECTIVE INFORMATION 12/18/2005 Overview: Information given to pt hx of hypercalcemia on supplemnts, to be off andrés cium supp 09/30/2003 Family history of colon cancer 10/31/2002 Dyslipidemia, goal LDL below 70 Asymmetric septal hypertrophy Type 2 diabetes mellitus wit h hemoglobin A1c goal of less than 7.5% Overview: ICD-10 update of inactive term Status post insertion of drug eluting coronary a rtery stent documented as of this encounter (statuses as of 07/04/2023) Resolved Problems Problem Noted Date Diagnosed Date Resolved Date Diabetes mellitus with stage 3 chronic kidney disease 05/24/2020 11/25/2020 Overview: Per CKD protocol NSTEMI (non-ST elevated myoc ardial infarction) 10/17/2019 10/17/2019 Diabetes mellitus due to und erlying condition with stage 3 chronic kidney disease, without long-term current use of insulin 08/08/2019 021 Overview: Per CKD protocol Diabetes mellitus with stage 3 chronic kidney disease, without long-term current use of insulin 01/18/2018 05/27/2020 Overview: Per CKD protocol PSVT (paroxysmal supraventri cular tachycardia) 11/08/2016 01/12/2017 NSTEMI (non-ST elevated myoc ardial infarction) 09/12/2016 01/12/2017 Overview: D/t SVT Mitral stenosis 11/19/2014 10/05/2016 Overview: moderate Mitral valve disorder 05/03/20122016 Overview: Mod MR 2006 SEPTAL CLOSURE ANOM NOS 01/18/200609/15 documented as of this encounter (statuses as of 07/04/2023) Immunizations Name Administration Dates Next Due COVID-19 mRNA, LNP-s, No Pre serve, 2-Dose Series ([employer] 08/27/2021,09/22/2020,09/01/2020 Hepatitis B, 20+ yrs 09/12/2016 Pneumococcal Conjugate Vacc, 13 Valent (Prevnar) 06/03/2015 Pneumococcal Polysaccharide PPV23 (Pneumovax) 09/03/2006 Season Influenza, Quad, PF, Adjuvanted, 65+ Yrs, IM (FLUAD) 05/06/2020 Seasonal Influenza, Quadriva lent Hd (Fluzone Hd) 08/29/2022,07/25/2021 TDAP (age 11 and older)(Adacel) 09/13/2022,10/31 Zoster Vaccine Recombinant (Shingrix) 11/21/2022 ,09/13/2022 documented as of this encounter Social History Tobacco Use Types Packs/Day Years Used Date Smoking Tobacco: Never Smokeless Tobacco: Never Alcohol Use Standard Drinks/Week Comments No 0 (1 standard drink = 0.6 oz pur e alcohol) PHQ-2 Answer Date Recorded PHQ Adult Total Score 0 08/29/2022 Hunger Vital Sign Answer Date Recorded Worried About Running Out of Food in the Last Ye ar Never true 03/14/2019 Ran Out of Food in the Last Year Never true 03/14/2019 Sex and Gender Information Value Date Recorded Sex Assigned at Female 02/10/2020 10:37 AM EDT Gender Identity Female 02/10/2020 10:37 AM EDT Sexual Orientation Straight 02/10/2020 10 :37 AM EDT Job Start Date Occupation Industry Not on file Not on file Not on file documented as of this encounter Functional Status Functional Status Response Date of Assess ment Are you deaf or do you have serious difficulty h earing? No 09/22/2016 Are you blind or do you have serious difficulty seeing, even when wearing glasses? No 09/22/2016 Do you have serious difficul ty walking or climbing stairs? (5 years old or older) No 09/22/2016 Do you have difficulty dress ing or bathing? (5 years old or older) No 09/22/2016 Because of a physical, menta l, or emotional condition, do you have difficulty doing errands alone such as visiting a doctor s office or shopping? (15 years old or older) No 09/23/19 17 Cognitive Status Response Date of Assessm ent Because of a physical, menta l, or emotional condition, do you have serious difficulty concentrating, remembering, or making decisions? (5 years old or older) No 09/22/2016 documented as of this encounter Progress Notes * Sophie Ramirez PHARM Tech - 07/04/2023 8:20 AM EST Contacts Type Contact Phone/Fax 07/04/2023 08:18 AM EST Phone (Outgoing) IVETT VILLAFUERTE (Emergency Contact) [phone] Subjective Patient Findings Negatives: Signs/symptoms of bleeding, Change in health, Change in activity, Upcoming invasive procedure, Missed doses, Extra doses, Change in medications, Change in diet/appetite, Bruising Advised patient to contact Anticoagulation Clinic if any unusual bruising or bleeding, recent illness, changes in medication, or questions/concerns. PT/INR results, Coumadin dose instructions, and next PT/INR date communicated as noted by Pharmacist: Yes HEMA EVANS 07/04/2023, 8:20 AM * Nancy Medrano RPh - 07/04/2023 7:58 AM EST Coumadin Clinic (region specific) Objective Current Warfarin Dose As of 07/04/2023 Warfarin maintenance plan: 5 mg (5 mg x 1) every Sun, Tue, Darya; 2.5 mg (5 mg x 0.5) all other days INR Result As of 07/04/2023 INR goal: 2.0-3.0 INR used for dosin.1 (07/03/2023) Assessment & Plan Warfarin Plan As of 07/04/2023 Full warfarin instructions: 5 mg every Sun, Tue, Darya; 2.5 mg all other days No change documented: Nancy Medrano RPh Next INR check: 07/17/2023 Repeat PT/INR in 2 week(s) Weekly dose: not changed Additional Dosing Information: Description GML([facility]) Tech to contact patient with dose instructions as noted. Nancy Medrano RPh 07/04/2023, 7:58 AM documented in this encounter Plan of Treatment Upcoming Encounters Date Type Department Care Team (Late st Contact Info) Description 07/18/2023 6:00 AM EST Anticoagulation Pharmacy Call Center [phone] [place] [phone] [facility], [facility] [phone] [facility] [place] [address] 08/10/2023 9:00 AM EST Office Visit Cardiology, [facility] [address] [place] [phone] Jayda Segura PA-C [address] [place] [phone] 08/30/2023 10:00 AM EST Office Visit General Internal Medicine [facility] [address] [facility] [place] [address] Magy Segal MD [address] [facility] [place] [address] Scheduled Procedures Name Priority Associated Diagnoses Date/Ti me COLONOSCOPY FLEXIBLE PROXIMA L DIAGNOSTIC Recall Family history of colorectal cancer Health Maintenance Due Date Last Done Comments Hepatitis B (2 of 3 - Risk 3-dose series) 10/10/2016 09/12/2016 *BISPHONATE OR OTHER ACCEPTABLE MEDICATION NEEDED FOR OSTEOPOROSIS (REFER TO SMARTSET #1146) 02/18/2022 Diabetic Eye Exam 05/27/2022 05/27/2021, , 01/30/2019, Additional history exists COVID-19 Vaccine ( season) 2023 08/27/2021, 09/22/2020, 09/01/2020 Influenza Vaccine (FLU shot) (#1) 2023 08/29/2022, 07/25/2021, 05/06/2020, Additional history exists Depression Screening 08/29/2023 08/29/2022 HbA1c 11/19/2023 05/21/2023, 10/14, 08/29/2022, Additional history exists GFR 12/11/2023 06/12/2023, 05/16, 05/21/2023, Additional history exists Diabetic Foot Exam 02/23/2024 02/22/2023, 0 02/16/2022, 01/04/2021, Additional history exists CKD PHOS USE SMARTSET 80941 05/21/2024 110 12/2022, 09/27/2021, 08/20/2020, Additional history exists Albumin/Creatinine Ratio 05/25/2024 023, 08/20/2020, 02/10/2020, Additional history exists CKD HGB USE SMARTSET 34775 06/12/202406/12, 06/12/2023, 05/29/2023, Additional history exists DTaP,Tdap,and Td Vaccines (3 - Td or Tdap) 09/13/2032 09/13/2022, 11/01/2011 Pneumococcal Vaccine: 65+ Years Completed 06/03/2015, 09/03/2006 COLONOSCOPY-EVERY 5 YRS AGES 18-100 Discontinued 06/22/2021, 06/22/2021, 04/12/2015, Additional history exists Zoster Vaccines Completed 11/21/2022, 09/13/2022 GARDASIL-HPV IMMUNIZATION SERIES Aged Out No longer eligible based on patient's age to complete this topic MENINGOCOCCAL (MENACTRA/MENVEO) Aged Out No longer eligible based on patient's age to complete this topic documented as of this encounter Medical Devices Implanted Type Area Cylinder Grinder Device Identifier Shelf Expiration Date Model / Serial / Lot Sut Steel 6 [id number] - [id number] Implanted:Qty: 4 on 09/22/2016 by Dejon Carlos MD at [place] [facility] [place] Sternum JN[place] : [employer] 06/14/2021 [id number] / / [id number] documented as of this encounter Visit Diagnoses Diagnosis S/P MVR (mitral valve replacement)- Primary Heart valve replaced by other means Bioprosthetic mitral valve replacement, current hospitalization Heart valve replaced by other means documented in this encounter Advance Directives Latest Code Status on File Code Status Date Activated Date Inactivated Comments Full Code 09/22/2016 12:20 PM 09/28/2016 3:42 PM This order reflects the patients wishes and were consensually agreed upon. Question Answer Comments Discussion of Advance Directives occurred with: Patient Does the patient have a Living Will? No Does the patient have Health Care Power of Flat Surfacer Jewel? No Care Teams Physicist Light And Optics Relationship Specialty Start Date End Date Magy Segal MD [address] [place] [address] PCP - General Internal Medicine 08/08/19 documented as of this encounter
--- OUTSIDE RECORDS SUMMARY | 2023-07-28 21:44 | External Medical Summary | Summary of Care ---
Author Name Unknown Organization [facility] Address [address] [facility] [place] [address] Phone [phone] Care Team Providers Care Plaster Patternmaker Name Role Phone Magy Segal MD Primary Care Provider + Reason for Visit * Reason Comments Dosage Adjustment Via Phone (anticoag Cl inic) Encounter Details Date Type Department Care Team (Latest Contact Info) Description 06/22/2023 6:00 AM EST Anticoagulation Pharmacy Call Center [phone] [place] [phone] [facility] [address] [facility] [place] [address] S/P MVR (mitral valve replacement)*; Bioprosthetic mitral valve replacement, current hospitalization Allergies Active Allergy Reactions Criticality Noted Date Comments Haseeb Inhibitors Cough 04/04/2010 documented as of this encounter (statuses as of 06/22/2023) Medications Medication Sig Dispensed Refills Start Date End Date Status aspirin 81 MG chewable tablet Take 1 Tab by mouth daily. 30 Tab 3 09/28/2016 Active OneTouch Delica Lancets 33GIndications:Type 2 diabetes mellitus with hemoglobin A1c goal of less than 7.5% ([facility]) Test blood sugar once daily 100 Each [...] 08/30/2021 Active Additional Information Patient taking differently:2 Basco Each Nostril Daily(AM),As needed, Informant: Child, Reported on 08/29/2022 Rosuvastatin Calcium 20 MG Oral Tablet (Crestor) TAKE ONE TABLET BY MOUTH DAILY 90 Tablet 3 07/03/2022 Active Losartan Potassium 50 MG Oral Tablet (Cozaar) [...] Oral Tablet (Jantoven)Indicatio ns:Coronary artery disease involving [place] coronary artery of [place] heart without angina pectoris,S/P MVR (mitral valve [...] ONCE DAILY 90 Tablet 3 06/19/2023 Active documented as of this encounter (statuses as of 06/22/2023) Active Problems Problem Noted Date Diagnosed Date [...] (NSTEMI) 07/20/2017 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 [facility]PC current use of 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 therapy 0 10/03/2016 Overview: ICD-10 update of inactive term S/P MVR (mitral valve replacement) 09/28/2016 Overview: Bioprosthetic 29mm epic valve Coronary artery disease invo lving [place] coronary artery of [place] heart without angina pectoris 09/12/2016 Overview: 80% [...] as of this encounter (statuses as of 06/22/2023) Resolved Problems Problem Noted Date Diagnosed Date [...] as of this encounter (statuses as of 06/22/2023) Immunizations Name Administration Dates Next Due COVID-19 mRNA, LNP-s, No Pre serve, 2-Dose Series ([employer]) 08/27/2021,09/22/2020,09/01/2020 Hepatitis B, 20+ yrs 09/12/2016 Pneumococcal [...] as of this encounter Progress Notes * Nancy Herr CPhT - 06/22/2023 3:49 PM EST Contacts Type Contact Phone/Fax 06/22/2023 03:48 PM EST Phone (Outgoing) IVETT VILLAFUERTE (Emergency Contact) [phone] Subjective Patient Findings Negatives: Signs/symptoms of bleeding, Change in health, Change in activity, Upcoming invasive procedure, Missed doses, Extra doses, Change in medications, Change in diet/appetite, Bruising Advised patient to contact Anticoagulation Clinic if any unusual bruising or bleeding, recent illness, changes in medication, or questions/concerns. PT/INR results, Coumadin dose instructions, and next PT/INR date communicated as noted by Pharmacist: Yes Nancy Herr CPhT 06/22/2023, 3:49 PM * Nancy Medrano RPh - 06/22/2023 3:47 PM EST 1.Coumadin Clinic (region specific) Objective Current Warfarin Dose As of 06/22/2023 Warfarin maintenance plan: 5 mg (5 mg x 1) every Sun, Tue, Darya; 2.5 mg (5 mg x 0.5) all other days INR Result As of 06/22/2023 INR goal: 2.0-3.0 INR used for dosin.3 (06/21/2023) Assessment & Plan Warfarin Plan As of 06/22/2023 Full warfarin instructions: 5 mg every Sun, Tue, Darya; 2.5 mg all other days No change documented: Nancy Medrano RPh Next INR check: 07/03/2023 Repeat PT/INR in 1.5 week(s) Weekly dose: not changed Additional Dosing Information: Description 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 Nancy Medrano RPh 06/22/2023, 3:47 PM documented in this encounter Plan of Treatment Upcoming Encounters Date Type Department Care Team (Late st Contact Info) Description 07/04/2023 6:00 AM EST Anticoagulation Pharmacy Call Center [phone] [place] [phone] Ccps, [facility] [address] 60 [facility] [place] [address] 08/10/2023 9:00 AM EST Office Visit Cardiology, [facility] [address] [place] [address] Jayda Segura PA-C [address] [place] [phone] 08/30/2023 10:00 AM EST Office Visit General Internal Medicine [facility] [address] [facility] [place] [address] Magy Segal MD [address] [facility] [place] [address] Scheduled Procedures Name Priority Associated Diagnoses Date/Ti [...] Additional history exists CKD PHOS USE SMARTSET 65291 05/21/2024 110 12/2022, 09/27/2021, 08/20/2020, Additional history exists Albumin/Creatinine Ratio 05/25/2024 023, 08/20/2020, 02/10/2020, Additional history exists CKD HGB USE SMARTSET 13364 06/12/202406/12, 06/12/2023, 05/29/2023, Additional history exists DTaP,Tdap,and [...] this encounter Medical Devices Implanted Type Area Adjunct Psychology Faculty Member Device Identifier Shelf Expiration Date Model / Serial / Lot Sut Steel 6 [id number] - [id number] Implanted:Qty: 4 on 09/22/2016 by Dejon Carlos [place] [facility] Sternum [employer] : [employer] 06/14/2021 [id number] / / [id number] documented as of this encounter Visit Diagnoses [...] the patient have Health Care Power of Supervisor Crack Off? No Care Teams Plaster Patternmaker Relationship Specialty Start Date End Date Magy Segal MD [address] [place] [address] PCP - General Internal Medicine 08/08/19 documented as of this encounter
--- OUTSIDE RECORDS SUMMARY | 2023-07-28 21:44 | External Medical Summary | Summary of Care ---
Author Name Unknown Organization [facility] Address [address] [place] [facility] [place] [place] [address] Phone [phone] Care Team Providers Care Sugar House Supervisor Name Role Phone Magy Segal MD Primary Care Provider + Reason for Visit * Reason Comments Outpatient Testing Encounter Details Date Type Department Care Team (Late st Contact Info) Description 06/15/2023 11:30 AM EST Laboratory Laboratory [facility] [address] [place] [phone] [facility] [address] [place] [address] B12 deficiency; Iron deficiency anemia, unspecified iron deficiency anemia type; Folic acid deficiency Allergies Active Allergy Reactions Criticality Noted Date Comments Haseeb Inhibitors Cough 04/04/2010 documented as of this encounter (statuses as of 06/15/2023) Medications Medication Sig Dispensed Refills Start Date End Date Status aspirin 81 MG chewable tablet Take 1 Tab by mouth daily. 30 Tab 3 09/28/2016 Active OneTouch Delica Lancets 33GIndications:Type 2 diabetes mellitus with hemoglobin A1c goal of less than 7.5% ([facility]) Test blood sugar once daily 100 Each 3 06/15/2020 Active OneTouch Verio In Vitro Strip (Glucose Blood)Indications:T ype 2 diabetes mellitus with hemoglobin A1c goal of less than 7.5% ([facility]) Test blood sugar once daily 100 Strip 3 07/21/2020 Active Fluticasone Propionate 50 MCG/ACT Nasal SuspensionIndicatio ns:Bronchitis, complicated Administer into each nostril 2 Sprays in the morning. 9.9 mL 2 08/30/2021 Active Additional Information Patient taking differently:2 [place] Each Nostril Daily(AM),As needed, Informant: Child, Reported on 08/29/2022 amLODIPine Besylate 2.5 MG Oral Tablet (Norvasc) TAKE ONE TABLET BY MOUTH DAILY 90 Tablet 3 06/16/2022 Active Rosuvastatin Calcium 20 MG Oral Tablet (Crestor) [...] Oral Tablet (Jantoven)Indicatio ns:Coronary artery disease involving [place] coronary artery of [place] heart without angina pectoris,S/P MVR (mitral valve [...] 22, 2023. 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 technician terminal and repeater current use of 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 therapy 0 10/03/2016 Overview: ICD-10 update of inactive term S/P MVR (mitral valve replacement) 09/28/2016 Overview: Bioprosthetic 29mm epic valve Coronary artery disease invo lving [place] coronary artery of [place] heart without angina pectoris 09/12/2016 Overview: 80% [...] as of this encounter (statuses as of 06/15/2023) Resolved Problems Problem Noted Date Diagnosed Date [...] as of this encounter (statuses as of 06/15/2023) Immunizations Name Administration Dates Next Due COVID-19 mRNA, LNP-s, No Pre serve, 2-Dose Series (timeplazza) 08/27/2021,09/22/2020,09/01/2020 Hepatitis B, 20+ yrs 09/12/2016 Pneumococcal [...] No 09/22/2016 documented as of this encounter Plan of Treatment Upcoming Encounters Date Type Department Care Team (Late st Contact Info) Description 06/21/2023 9:00 AM EST Laboratory Lab [facility] [address] [place] [address] Gm, Gml Mobile Home Draw [address] [place] [address] 06/22/2023 6:00 AM EST Anticoagulation Pharmacy Call Center [address] [place] [address] Ccps, [facility] [address] [facility] [place] [address] 08/10/2023 9:00 AM EST Office Visit Cardiology, [facility] [address] [place] [address] Jayda Segura PA-C [address] [facility] [place] [address] 08/30/2023 10:00 AM EST Office Visit General Internal Medicine [facility] [address] [facility] [place] [address] Magy Segal MD [address] [facility] [place] [address] Pending Results Name Type Priority Associated Diagnoses Date /Time VITAMIN B12 Lab Routine B12 deficiency 06/15/2023 11:35 AM EST IRON SCREEN, INCLUDING TIBC Lab Routine Iron deficiency anemia, unspecified iron deficiency anemia type 06/15/2023 11:35 AM EST FOLIC ACID Lab Routine Folic acid deficiency 06/15/2023 11:35 AM EST FERRITIN Lab Routine Iron deficiency anemia, unspecified iron deficiency anemia type 06/15/2023 11:35 AM EST Scheduled Procedures Name Priority Associated Diagnoses Date/Ti [...] Additional history exists CKD PHOS USE SMARTSET 69316 05/21/202412/2022, 09/27/2021, 08/20/2020, Additional history exists Albumin/Creatinine Ratio 05/25/20242 023, 08/20/2020, 02/10/2020, Additional history exists CKD HGB USE SMARTSET 88736 06/12/202406/12, 06/12/2023, 05/29/2023, Additional history exists DTaP,Tdap,and [...] this encounter Medical Devices Implanted Type Area Pull Over Machine Operator Device Identifier Shelf Expiration Date Model / Serial / Lot Shaun Collado 6 [id number] - [id number] Implanted:Qty: 4 on 09/22/2016 by Dejon Carlos MD at [place] [facility] [place]/A: Sternum JNJ : [employer] 06/14/2021 [id number] / / [id number] documented as of this encounter Visit Diagnoses Diagnosis B12 deficiency Other B-complex deficiencies Iron deficiency anemia, unspecified iron deficiency anemia type Folic acid deficiency Other B-complex deficiencies documented in this encounter Advance Directives Latest Code Status on File Code Status Date Activated Date Inactivated Comments Full Code 09/22/2016 12:20 PM 09/28/2016 3:42 PM This order reflects the patients wishes and were consensually agreed upon. Question Answer Comments Discussion of Advance Directives occurred with: Patient Does the patient have a Living Will? No Does the patient have Health Care Power of Database Design Analyst? No Care Teams Sugar House Supervisor Relationship Specialty Start Date End Date Magy Segal MD [address] [place] [address] PCP - General Internal Medicine 08/08/19 documented as of this encounter
--- OUTSIDE RECORDS SUMMARY | 2023-07-28 21:44 | External Medical Summary ---
Author Name Unknown Address Unknown Organization [id number]:LABORATORY [facility] - [address] [place] [address] Laboratory Report Ordering Provider Test Date Status MIGUEL MACHUCA 06/15/2023 11:35:14 Final Observation Date Value Abnormality Reference (Units ) Status Vitamin B12 06/15/2023 11:35:14 [phone] (pg/mL) Final Performing Location LABORATORY [facility] - [address] [place] [address]
--- OUTSIDE RECORDS SUMMARY | 2023-07-28 21:44 | External Medical Summary ---
Author Name Unknown Address Unknown Organization [id number]:[facility]ATORY [facility] [address] - [address] [place] [address] Laboratory Report Ordering Provider Test Date Status DANISHA LOPEZ 07/03/2023 08:28:00 Final Standing order for pt/inr.
Please draw pt/inr every 1 to 4 weeks as requested
Results to [facility]

Warfarin Therapy
INR: 2.0-3.0 conventional anticoagulation
INR: 2.5-3.5 high intensity anticoagulation Observation Date Value Abnormality Reference (Units ) Status PT 07/03/2023 08:28:00 23.6 Above high normal 11 .6-15.2 (seconds) Final INR 07/03/2023 08:28:00 2.1 Above high normal 0. 8-1.2 Final Performing Location LABORATORY [facility] [address] - [address] [place] [address]
--- OUTSIDE RECORDS SUMMARY | 2023-07-28 21:44 | External Medical Summary | Summary of Care ---
Author Name Unknown Organization [facility] Address [address] [facility] [place] [address] Phone [phone] Care Team Providers Care Kettle Firer Name Role Phone Magy Segal MD Primary Care Provider + Reason for Visit * Reason Comments eRx-Medication Refill Encounter Details Date Type Department Care Team (Late st Contact Info) Description 06/19/2023 Refill Cardiology, [facility] [address] [place] [phone] Arnav Rodriguez PA-C [address] [place] [phone] Allergies Active Allergy Reactions Criticality Noted Date Comments Haseeb Inhibitors Cough 04/04/2010 documented as of this encounter (statuses as of 06/19/2023) Medications Medication Sig Dispensed Refills Start Date End Date Status aspirin 81 MG chewable tablet Take 1 Tab by mouth daily. 30 Tab 3 09/28/2016 Active OneTouch Delica Lancets 33GIndications:Ty pe 2 diabetes mellitus with hemoglobin A1c goal of less than 7.5% ([facility]) Test blood sugar once daily 100 Each 3 06/15/2020 Active OneTouch Verio In Vitro Strip (Glucose Blood)Indications :Type 2 diabetes mellitus with hemoglobin A1c goal of less than 7.5% ([facility]) Test blood sugar once daily 100 Strip 3 07/21/2020 Active Fluticasone Propionate 50 MCG/ACT Nasal SuspensionIndicat ions:Bronchitis, complicated Administer into each nostril 2 Sprays in the morning. 9.9 mL 2 08/30/2021 Active Additional Information Patient taking differently:2 [place] Each Nostril Daily(AM),As needed, Informant: Child, Reported [...] Active Metoprolol Tartrate 25 MG Oral Tablet (Lopressor)Indica tions:Essential hypertension with goal blood pressure less than 140/90,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 TAKE 1 TABLET BY MOUTH TWICE DAILY 180 Tablet 1 03/30/2023 Active Warfarin Sodium 5 MG Oral Tablet (Jantoven)Indicat ions:Coronary artery disease involving [place] coronary artery of [place] heart without angina pectoris,S/P MVR (mitral valve replacement) TAKE ONE TABLET BY MOUTH DAILY or as directed by coag clinic 90 Tablet 3 03/30/2023 Active Famotidine 20 MG Oral Tablet (Pepcid) TAKE ONE TABLET BY MOUTH IN THE MORNING AND ONE BEFORE BEDTIME 180 Tablet 3 04/03/2023 Active Additional Information Patient not taking.Reported on 05/21/2023 Loratadine 10 MG Oral Tablet (Claritin)Indicat ions:Acute otitis media, left Take 1 Tablet by mouth in the morning. 0 05/21/2023 Active predniSONE 10 MG Oral Tablet (Deltasone)Indica tions:Acute otitis media, left,Fullness in ear, bilateral,Decreas ed hearing of both ears Take 4 tabs for 2 days, 3 tabs for 2 days, 2 tabs for 2 days 1 tab for 2 days Do not start before May 22, 2023. 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 group home current use of 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 therapy 0 10/03/2016 Overview: ICD-10 update of inactive term S/P MVR (mitral valve replacement) 09/28/2016 Overview: Bioprosthetic 29mm epic valve Coronary artery disease invo lving [place] coronary artery of [place] heart without angina pectoris 09/12/2016 Overview: 80% [...] as of this encounter (statuses as of 06/19/2023) Resolved Problems Problem Noted Date Diagnosed Date [...] as of this encounter (statuses as of 06/19/2023) Immunizations Name Administration Dates Next Due COVID-19 mRNA, LNP-s, No Pre serve, 2-Dose Series (Adonit) 08/27/2021,09/22/2020,09/01/2020 Hepatitis B, 20+ yrs 09/12/2016 Pneumococcal [...] No 09/22/2016 documented as of this encounter Miscellaneous Notes * Telephone Encounter - Arnav Rodriguez PA-C - 06/19/2023 12:18 PM EST Signed Prescriptions: Disp Refills amLODIPine Besylate 2.5 MG Oral Tablet (No*90 Tab*3 Sig: TAKE 1 TABLET BY MOUTH ONCE DAILY Authorizing Provider: ARNAV RODRIGUEZ * Telephone Encounter - Krzysztof Coto RN - 06/19/2023 12:13 PM ESTPending Prescriptions: Disp Refills amLODIPine Besylate 2.5 MG Oral Tablet (No*90 Tab*3 Sig: TAKE 1 TABLET BY MOUTH ONCE DAILY * Telephone Encounter - Krzysztof Coto RN - 06/19/2023 12:12 PM EST Pending Prescriptions: Disp Refills amLODIPine Besylate 2.5 MG Oral Tablet (N*90 Tab*3 Sig: TAKE 1 TABLET BY MOUTH ONCE DAILY Last Visit: 11/03/2021 (in office), Visit date not found (telemedicine) Next Visit: 08/10/2023 Last medication order date: 06/16/2022 Have you choosen a preferred pharm?? yes Patient Active Problem List Diagnosis Code Family history of colon cancer Z80.0 hx of hypercalcemia on supplemnts, to be off calcium supp Dyslipidemia, goal LDL below 70 E78.5 ADVANCE DIRECTIVE INFORMATION Asymmetric septal hypertrophy (HCC) I42.2 Kidney disease, chronic, stage III (GFR 30-59 ml/min) ([facility]) N18.30 Type 2 diabetes mellitus with hemoglobin A1c goal of less than 7.5% ([facility]) E11.9 Essential hypertension with goal blood pressure less than 140/90 I10 Coronary artery disease involving [place] coronary artery of [place] heart without angina pectoris I25.10 Pulmonary hypertension ([facility]) I27.20 S/P MVR (mitral valve replacement) Z95.2 long term care administrator current use of 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 therapy Z79.01 S/P CABG x 2 Z95.1 History of non-ST elevation myocardial infarction (NSTEMI) I25.2 Hx of actinic keratosis Z87.2 HTN, goal below 140/90 I10 High risk for fracture due to osteoporosis by DEXA scan M81.0 Aortic atherosclerosis ([facility]) I70.0 Risk and functional assessment Z13.9 Status post insertion of drug eluting coronary artery stent Z95.5 Partial idiopathic epilepsy with seizures of localized onset, not intractable, with status epilepticus ([facility]) G40.001 Bioprosthetic mitral valve replacement, current hospitalization Z95.3 Type 2 diabetes mellitus with stage 3a chronic kidney disease ([facility]) E11.22, N18.31 Diabetes mellitus due to underlying condition with stage 3a chronic kidney disease ([facility]) E08.22, N18.31 PSVT (paroxysmal supraventricular tachycardia) I47.10 Chronic kidney disease, stage 3a ([facility]) N18.31 Diabetes mellitus due to underlying condition with stage 3 chronic kidney disease, without long-term current use of insulin ([facility]) E08.22, N18.30 Bronchitis, complicated J40 Iron deficiency anemia D50.9 Labs: Lab Results Component Value Date/Time CREATININE - [facility] 1.2 (H) 06/12/2023 08:00 AM CREATININE - [facility] 1.0 06/04/2020 03:53 PM CREATININE, RANDOM URINE - [facility] 42 05/25/2023 10:01 AM CREATININE, RANDOM URINE - [facility] 60 02/10/2020 09:42 AM Lab Results Component Value Date/Time POTASSIUM - [facility] 4.6 06/12/2023 08:00 AM POTASSIUM - [facility] 4.0 06/04/2020 03:53 PM POTASSIUM POCT - [facility] 3.3 (L) 09/22/2016 12:26 PM POTASSIUM, WHOLE BLOOD - [facility] 3.7 09/22/2016 03:00 PM Lab Results Component Value Date/Time TSH - [facility] 5.75 (H) 09/15/2016 11:09 AM Lab Results Component Value Date/Time LDL (CALCULATED) 118. 03/24/1996 02:30 PM LDL CHOLESTEROL (CALCULATED) - [facility] 02/09/2020 09:14 AM Uninterpretable, recommend direct LDL cholesterol testing. LDL CHOLESTEROL (CALCULATED) - [facility] UNINTERPRETABLE RESULT 07/22/2018 11:05 AM LDL CHOLESTEROL (DIRECT MEASURE) - [facility] 24 05/21/2023 03:16 PM LDL CHOLESTEROL (DIRECT MEASURE) - [facility] 47 09/27/2021 07:21 AM LDL CHOLESTEROL (DIRECT MEASURE) - [facility] 74 07/22/2018 11:05 AM LDL CHOLESTEROL (DIRECT MEASURE) - [facility] NOT APPLICABLE 01/18/2018 10:28 AM LDL CHOLESTEROL (DIRECT MEASURE) - [facility] 95 10/27/2014 08:55 AM LDL CHOLESTEROL (DIRECT MEASURE) - [facility] 96 04/23/2012 08:01 AM Lab Results Component Value Date/Time ALT - [facility] 31 06/12/2023 08:00 AM ALT - [facility] 20 06/04/2020 03:53 PM Hemoglobin AIC Results: Lab Results Component Value Date/Time HEMOGLOBIN A1C - [facility] 6.8 (H) 05/21/2023 03:16 PM HEMOGLOBIN A1C - [facility] 7.8 (H) 10/23/2022 07:42 AM HEMOGLOBIN A1C - [facility] 7.5 (H) 08/29/2022 01:43 PM HEMOGLOBIN A1C - [facility] 6.4 (H) 02/09/2020 09:14 AM HEMOGLOBIN A1C - [facility] 6.8 (H) 07/03/2019 01:16 PM HEMOGLOBIN A1C - [facility] 9.3 (H) 01/24/2019 11:11 AM documented in this encounter Plan of Treatment Upcoming Encounters Date Type Department Care Team (Late st Contact Info) Description 06/21/2023 9:00 AM EST Laboratory Lab [facility] [address] [place] [address] Gm, [facility] Mobile Home Draw [address] [place] [address] 06/22/2023 6:00 AM EST Anticoagulation Pharmacy Call Center [phone] [place] [address] [facility], [facility] [address] [facility] [place] [address] 08/10/2023 9:00 AM EST Office Visit Cardiology, [facility] [address] [place] [address] Arnav Rodriguez PA-C [address] [place] [address] 08/30/2023 10:00 AM EST Office Visit General Internal Medicine [facility] [address] [facility] [place] [address] Magy Segal MD [address] [facility] [place] [address] Scheduled Procedures Name Priority Associated Diagnoses Date/Ti [...] Additional history exists CKD PHOS USE SMARTSET 44328 05/21/202412/2022, 09/27/2021, 08/20/2020, Additional history exists Albumin/Creatinine Ratio 05/25/2024 023, 08/20/2020, 02/10/2020, Additional history exists CKD HGB USE SMARTSET 83955 06/12/202406/12, 06/12/2023, 05/29/2023, Additional history exists DTaP,Tdap,and [...] this encounter Medical Devices Implanted Type Area Firer Retort Device Identifier Shelf Expiration Date Model / Serial / Lot Sut Steel 6 [id number] - [id number] Implanted:Qty: 4 on 09/22/2016 by Dejon Carlos MD at [place] [facility] [place]/A: Sternum JNGhanshyam : [employer] 06/14/2021 [id number] / / [id number] documented as of this encounter Advance Directives Latest Code Status on File Code Status Date Activated Date Inactivated Comments Full Code 09/22/2016 12:20 PM 09/28/2016 3:42 PM This order reflects the patients wishes and were consensually agreed upon. Question Answer Comments Discussion of Advance Directives occurred with: Patient Does the patient have a Living Will? No Does the patient have Health Care Power of Painter Chassis? No Care Teams Kettle Firer Relationship Specialty Start Date End Date Magy Segal MD [facility] [place] [address] PCP - General Internal Medicine 08/08/19 documented as of this encounter
--- OUTSIDE RECORDS SUMMARY | 2023-07-28 21:44 | External Medical Summary | Summary of Care ---
Author Name Unknown Organization [facility] Address [address] [facility] [place] [address] Phone [phone] Care Team Providers Care Brilliandeer Lopper Name Role Phone Magy Segal MD Primary Care Provider + Reason for Visit * Reason Comments Dosage Adjustment Via Phone (anticoag Cl inic) Encounter Details Date Type Department Care Team (Latest Contact Info) Description 06/13/2023 6:00 AM EST Anticoagulation Pharmacy Call Center [phone] [place] [address] [facility] [address] [facility] [place] [address] S/P MVR (mitral valve replacement)*; Bioprosthetic mitral valve replacement, current hospitalization Allergies Active Allergy Reactions Criticality Noted Date Comments Haseeb Inhibitors Cough 04/04/2010 documented as of this encounter (statuses as of 06/13/2023) Medications Medication Sig Dispensed Refills Start Date End Date Status aspirin 81 MG chewable tablet Take 1 Tab by mouth daily. 30 Tab 3 09/28/2016 Active OneTouch Delica Lancets 33GIndications:Type 2 diabetes mellitus with hemoglobin A1c goal of less than 7.5% ([facility]) Test blood sugar once daily 100 Each [...] 08/30/2021 Active Additional Information Patient taking differently:2 [place] Each Nostril Daily(AM),As needed, Informant: Child, Reported [...] Oral Tablet (Jantoven)Indicatio ns:Coronary artery disease involving [place] coronary artery of [place] heart without angina pectoris,S/P MVR (mitral valve [...] as of this encounter (statuses as of 06/13/2023) Active Problems Problem Noted Date Diagnosed Date [...] (NSTEMI) 07/20/2017 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 skilled nursing current use of 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 therapy 0 10/03/2016 Overview: ICD-10 update of inactive term S/P MVR (mitral valve replacement) 09/28/2016 Overview: Bioprosthetic 29mm epic valve Coronary artery disease invo lving [place] coronary artery of [place] heart without angina pectoris 09/12/2016 Overview: 80% [...] as of this encounter (statuses as of 06/13/2023) Resolved Problems Problem Noted Date Diagnosed Date [...] as of this encounter (statuses as of 06/13/2023) Immunizations Name Administration Dates Next Due COVID-19 mRNA, LNP-s, No Pre serve, 2-Dose Series ([place]) 08/27/2021,09/22/2020,09/01/2020 Hepatitis B, 20+ yrs 09/12/2016 Pneumococcal [...] as of this encounter Progress Notes * Tamela Holman, PHARM Student - 06/13/2023 8:44 AM EST Contacts Type Contact Phone/Fax 06/13/2023 08:38 AM EST Phone (Outgoing) FRANCIS VILLAFUERTE (Emergency Contact) [phone] Subjective Patient Findings Negatives: Signs/symptoms of thrombosis, Signs/symptoms of bleeding, Change in health, Change in alcohol use, Change in activity, Upcoming invasive procedure, Missed doses, Extra doses, Change in medications, Change in diet/appetite, Bruising Advised patient to contact Anticoagulation Clinic if any unusual bruising or bleeding, recent illness, changes in medication, or questions/concerns. PT/INR results, Coumadin dose instructions, and next PT/INR date communicated as noted by Pharmacist: Yes Mary Partida, PHARM Student Tamela Holman, PHARM D 06/13/2023, 8:44 AM * Nancy Medrano RPh - 06/13/2023 8:03 AM EST Images from the original note were not included. Coumadin Clinic (region specific) Objective Current Warfarin Dose As of 06/13/2023 Warfarin maintenance plan: 5 mg (5 mg x 1) every Sun, Darya; 2.5 mg (5 mg x 0.5) all other days INR Result As of 06/13/2023 INR goal: 2.0-3.0 INR used for dosin.9 (06/12/2023) Assessment & Plan Warfarin Plan As of 06/13/2023 Full warfarin instructions: 06/13: 5 mg; Otherwise 5 mg every Sun, Tue, Darya; 2.5 mg all other days Next INR check: 06/21/2023 Repeat PT/INR in 1.5 week(s) Weekly dose: increased Additional Dosing Information: Description GML([facility]) Tech to contact patient with dose instructions as noted. Nancy Medrano RPh 06/13/2023, 8:03 AM documented in this encounter Plan of Treatment Upcoming Encounters Date Type Department Care Team (Late st Contact Info) Description 06/21/2023 9:00 AM EST Laboratory Lab [place]bot[place] [facility] [address] [place] [address] [facility], [facility] Mobile Home Draw [address] [place] [address] 06/22/2023 6:00 AM EST Anticoagulation Pharmacy Call Center [phone] [place] [address] [facility], [facility] [place] 58 60 [facility] [place] [address] 08/10/2023 9:00 AM EST Office Visit Cardiology, [facility] [address] [place] [address] Jayda Segura, [place] [address] [facility] [place] [address] 08/30/2023 10:00 AM EST Office Visit General Internal Medicine [facility] [address] [facility] [place] [address] Magy Segal MD 200 [facility] [place] [address] Scheduled Procedures Name Priority Associated Diagnoses Date/Ti [...] Additional history exists CKD PHOS USE SMARTSET 94085 05/21/202412/2022, 09/27/2021, 08/20/2020, Additional history exists Albumin/Creatinine Ratio 05/25/2024 023, 08/20/2020, 02/10/2020, Additional history exists CKD HGB USE SMARTSET 96838 06/12/202406/12, 06/12/2023, 05/29/2023, Additional history exists DTaP,Tdap,and [...] this encounter Medical Devices Implanted Type Area Black Off Worker Device Identifier Shelf Expiration Date Model / Serial / Lot Shaun Collado 6 [id number] - [id number] Implanted:Qty: 4 on 09/22/2016 by Dejon Carlos MD at OR [facility] N/A: Sternum JNJ : [employer] 06/14/2021 [id number] / / [id number] documented as of this encounter Visit Diagnoses [...] the patient have Health Care Power of Licensing Manager? No Care Teams Brilliandeer Lopper Relationship Specialty Start Date End Date Magy Segal MD 200 [place] [address] PCP - General Internal Medicine 08/08/19 documented as of this encounter
--- OUTSIDE RECORDS SUMMARY | 2023-07-28 21:44 | External Medical Summary ---
Author Name Unknown Address Unknown Organization K01:[facility] [place] [address] [facility] [place] [address] Laboratory Report Ordering Provider Test Date Status MIGUEL MACHUCA 06/15/2023 11:35:14 Final Observation Date Value Abnormality Reference (Units ) Status Ferritin 06/15/2023 11:35:14 339 Above high normal 13 -150 (ng/mL) Final Postmenopausal women have hi gher ferritin levels than pre-menopausal women. The above reference interval is based on pre-menopausal women. Performing Location [facility] [place] [address] [place] [address]
--- OUTSIDE RECORDS SUMMARY | 2023-07-28 21:44 | External Medical Summary ---
Author Name Unknown Address Unknown Organization K01:[facility] [place] [address] [facility] [address] Laboratory Report Ordering Provider Test Date Status MIGUEL MACHUCA 06/15/2023 11:35:14 Final Observation Date Value Abnormality Reference (Units ) Status Iron 06/15/2023 11:35:14 34 33-151 (ug/dL) Final Iron-binding capacity 06/15/2023 11:35:14 171 Below low normal 250-425 (ug/dL) Final Transferrin Sat % 06/15/2023 11:35:14 20 15-55 (%) Final Performing Location [facility] [place] [place] [address] [facility] [address]
--- OUTSIDE RECORDS SUMMARY | 2023-07-28 21:44 | External Medical Summary | Summary of Care ---
Author Name Unknown Organization [facility] Address [address] [place] [address] Phone [phone] Care Team Providers Care Aquatics Director Name Role Phone Magy Segal MD Primary Care Provider + Reason for Visit * Reason Onset Date Comments Test Results 06/13/2023 Encounter Details Date Type Department Care Team (Late st Contact Info) Description 06/13/2023 Telephone General Internal Medicine [facility] [address] [facility] [place] [address] Magy Segal MD 200 [place] [address] Test Results Allergies Active Allergy Reactions Criticality Noted Date Comments Haseeb Inhibitors Cough 04/04/2010 documented as of this encounter (statuses as of 06/13/2023) Medications Medication Sig Dispensed Refills Start Date End Date Status aspirin 81 MG chewable tablet Take 1 Tab by mouth daily. 30 Tab 3 09/28/2016 Active OneTouch Delica Lancets 33GIndications:Type 2 diabetes mellitus with hemoglobin A1c goal of less than 7.5% ([facility]) Test blood sugar once daily 100 Each 3 06/15/2020 Active OneTouch Verio In Vitro Strip (Glucose Blood)Indications:T ype 2 diabetes mellitus with hemoglobin A1c goal of less than 7.5% ([facility]) Test blood sugar once daily 100 Strip 3 07/21/2020 Active Fluticasone Propionate 50 MCG/ACT Nasal SuspensionIndicatio ns:Bronchitis, complicated Administer into each nostril 2 Sprays in the morning. 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 [facility] current use of 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 therapy 0 10/03/2016 Overview: ICD-10 update of inactive term S/P MVR (mitral valve replacement) 09/28/2016 Overview: Bioprosthetic 29mm epic valve Coronary artery disease invo lving [place] coronary artery of [place] heart without angina pectoris 09/12/2016 Overview: 80% [...] mRNA, LNP-s, No Pre serve, 2-Dose Series ([place]) 08/27/2021,09/22/2020,09/01/2020 Hepatitis B, 20+ yrs 09/12/2016 Pneumococcal [...] encounter Miscellaneous Notes * Telephone Encounter - Rubén Esquivel LPN - 06/13/2023 10:55 AM EST Patients daughter Ivett informed and voiced understanding. 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 * Telephone Encounter - Rubén Esquivel LPN - 06/13/2023 10:54 AM EST ----- Message from Magy Segal MD sent at 06/12/2023 3:58 PM EST ----- Labs are showing still low but improvement in the kidney functions. Continue hydration and avoid any [id number] NSAIDs. Patient does have mild anemia and I have added few more blood test. She can start taking mkso-[id number]-zrxyihn iron pill 1 every other day. I would also ask her to do the stool card an order is in the system. documented in this encounter Plan of Treatment Upcoming Encounters Date Type Department Care Team (Late st Contact Info) Description 06/21/2023 9:00 AM EST Laboratory Lab [place] Phlebot[facility] [address] [place] [address] [facility], [facility] Mobile Home Draw [address] [place] [address] 06/22/2023 6:00 AM EST Anticoagulation Pharmacy Call Center [address] [facility] [place] [address] [facility] 58 60 [facility] [place] [address] 08/10/2023 9:00 AM EST Office Visit Cardiology, [facility] [address] [facility] [place] [address] Jayda Segura, [place] [address] [place] [address] 08/30/2023 10:00 AM EST Office Visit General Internal Medicine [facility] [place] [address] [facility] [place], [place] [address] Magy Segal MD [address] [facility] [place], [place] [address] Scheduled Procedures Name Priority Associated Diagnoses Date/Ti [...] Additional history exists CKD PHOS USE SMARTSET 53280 05/21/2024 11/0 12/2022, 09/27/2021, 08/20/2020, Additional history exists Albumin/Creatinine Ratio 05/25/20242 023, 08/20/2020, 02/10/2020, Additional history exists CKD HGB USE SMARTSET 85035 06/12/202406/12, 06/12/2023, 05/29/2023, Additional history exists DTaP,Tdap,and [...] this encounter Medical Devices Implanted Type Area Cargo Inspector Device Identifier Shelf Expiration Date Model / Serial / Lot Sut Steel 6 [id number] - [id number] Implanted:Qty: 4 on 09/22/2016 by Dejon Carlos MD at [place] [facility] N/A: Sternum JNJ : [employer] 06/14/2021 [id number] / / [id number] documented as of this encounter Advance Directives [...] the patient have Health Care Power of Commissary Steward? No Care Teams Aquatics Director Relationship Specialty Start Date End Date Magy Segal MD [address] [place] [address] PCP - General Internal Medicine 08/08/19 documented as of this encounter
--- OUTSIDE RECORDS SUMMARY | 2023-07-28 21:44 | External Medical Summary | Summary of Care ---
Author Name Unknown Organization [facility] Address [address] [facility] [place] [address] Phone [phone] Care Team Providers Care Academic Coach Name Role Phone Magy Segal MD Primary Care Provider + Reason for Visit * Reason Comments eRx-Medication Refill Encounter Details Date Type Department Care Team (Late st Contact Info) Description 07/03/2023 Refill Cardiology, [facility] [address] [place] [address] Malachi Kumar PA-C [address] [place] [address] Dyslipidemia, goal LDL below 70* Allergies Active Allergy Reactions Criticality Noted Date Comments Haseeb Inhibitors Cough 04/04/2010 documented as of this encounter (statuses as of 07/03/2023) Medications Medication Sig Dispensed Refills Start Date End Date Status aspirin 81 MG chewable tablet Take 1 Tab by mouth daily. 30 Tab 3 09/28/2016 Active OneTouch Delica Lancets 33GIndications:Ty pe 2 diabetes mellitus with hemoglobin A1c goal of less than 7.5% ([facility]) Test blood sugar once daily 100 Each 3 06/15/2020 Active OneTouch Verio In Vitro Strip (Glucose Blood)Indications :Type 2 diabetes mellitus with hemoglobin A1c goal of less than 7.5% ([facility]) Test blood sugar once daily 100 Strip 3 07/21/2020 Active Fluticasone Propionate 50 MCG/ACT Nasal SuspensionIndicat ions:Bronchitis, complicated Administer into each nostril 2 Sprays in the morning. 9.9 mL 2 08/30/2021 Active Additional Information Patient taking differently:2 [place] Each Nostril Daily(AM),As needed, Informant: Child, Reported [...] Oral Tablet (Jantoven)Indicat ions:Coronary artery disease involving [place] coronary artery of [place] heart without angina pectoris,S/P MVR (mitral valve [...] Active Rosuvastatin Calcium 20 MG Oral Tablet (Crestor)Indicati ons:Dyslipidemia, goal LDL below 70 TAKE 1 TABLET BY MOUTH ONCE DAILY 90 Tablet 3 07/03/2023 Active Rosuvastatin Calcium 20 MG Oral Tablet (Crestor) TAKE ONE TABLET BY MOUTH DAILY 90 Tablet 3 07/03/2022 07/03/20 23 Discontinued documented as of this encounter (statuses as of 07/03/2023) Active Problems Problem Noted Date Diagnosed Date [...] (NSTEMI) 07/20/2017 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 detention current use of 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 therapy 0 10/03/2016 Overview: ICD-10 update of inactive term S/P MVR (mitral valve replacement) 09/28/2016 Overview: Bioprosthetic 29mm epic valve Coronary artery disease invo lving [place] coronary artery of [place] heart without angina pectoris 09/12/2016 Overview: 80% [...] as of this encounter (statuses as of 07/03/2023) Resolved Problems Problem Noted Date Diagnosed Date [...] as of this encounter (statuses as of 07/03/2023) Immunizations Name Administration Dates Next Due COVID-19 mRNA, LNP-s, No Pre serve, 2-Dose Series (Pfizer) 08/27/2021,09/22/2020,09/01/2020 Hepatitis B, 20+ yrs 09/12/2016 Pneumococcal [...] Telephone Encounter - Arnav Rodriguez PA-C - 07/03/2023 4:45 PM EST Signed Prescriptions: Disp Refills Rosuvastatin Calcium 20 MG Oral Tablet (Cr*90 Tab*3 Sig: TAKE 1 TABLET BY MOUTH ONCE DAILY Authorizing Provider: ARNAV RODRIGUEZ * Telephone Encounter - Do Cotto COT - 07/03/2023 11:37 AM ESTPending Prescriptions: Disp Refills Rosuvastatin Calcium 20 MG Oral Tablet (Cr*90 Tab*3 Sig: TAKE 1 TABLET BY MOUTH ONCE DAILY * Telephone Encounter - Do Cotto COT - 07/03/2023 11:37 AM EST Did you pend patient's preferred pharmacy and medication before forwarding?yes Pharmacy: [id number] [id number] Pending Prescriptions: Disp Refills Rosuvastatin Calcium 20 MG Oral Tablet (C*90 Tab*3 Sig: TAKE 1 TABLET BY MOUTH ONCE DAILY Last Visit: 11/03/2021 (in office), Visit date not found (telemedicine) Next Visit: 08/10/2023 If no future appointments scheduled, and last appointment is greater than a year ago, please schedule patient for a follow-up appointment Last date the medication was ordered: 07-03-2022 Is this request for a controlled substance?No Urine Drug Screen:No results found. However, due to the size of the patient record, not all encounters were searched. Please check Results Review for a complete set of results. Patient Phone Numbers Labs: Lab Results Component Value Date/Time CREAT 1.2 (H) 06/12/2023 08:00 AM CREAT 1.0 06/04/2020 03:53 PM POTASSIUM 4.6 06/12/2023 08:00 AM POTASSIUM 4.0 06/04/2020 03:53 PM TSH 5.75 (H) 09/15/2016 11:09 AM LDLCALC 02/09/2020 09:14 AM Uninterpretable, recommend direct LDL cholesterol testing. LDLCALC 118. 03/24/1996 02:30 PM LDLDIRECT 24 05/21/2023 03:16 PM LDLDIRECT 74 07/22/2018 11:05 AM LDLDIRECT 95 10/27/2014 08:55 AM ALT 31 06/12/2023 08:00 AM ALT 20 06/04/2020 03:53 PM HGBA1C 6.8 (H) 05/21/2023 03:16 PM HGBA1C 6.4 (H) 02/09/2020 09:14 AM documented in this encounter Plan of Treatment Upcoming Encounters Date Type Department Care Team (Late st Contact Info) Description 07/04/2023 6:00 AM EST Anticoagulation Pharmacy Call Center [address] [facility] [place] [address] [facility] 58 60 [facility] [place] [address] 08/10/2023 9:00 AM EST Office Visit Cardiology, [facility] [address] [place] [address] Arnav Rodriguez, [place] [address] [place] [address] 08/30/2023 10:00 AM EST Office Visit General Internal Medicine [facility] [address] [place] [address] Magy Segal MD [address] [facility] [place] [address] Scheduled Procedures Name Priority Associated Diagnoses Date/Ti [...] Additional history exists CKD PHOS USE SMARTSET 17441 05/21/2024 11/0 12/2022, 09/27/2021, 08/20/2020, Additional history exists Albumin/Creatinine Ratio 05/25/2024 023, 08/20/2020, 02/10/2020, Additional history exists CKD HGB USE SMARTSET 36586 06/12/202406/12, 06/12/2023, 05/29/2023, Additional history exists DTaP,Tdap,and [...] this encounter Medical Devices Implanted Type Area Vocational Rehabilitation Supervisor Device Identifier Shelf Expiration Date Model / Serial / Lot Sut Steel 6 [id number] - [id number] Implanted:Qty: 4 on 09/22/2016 by Dejon Carlos [place] [facility] [place]A: Sternum JNJ : [employer] 06/14/2021 [id number] / / [id number] documented as of this encounter Visit Diagnoses Diagnosis Dyslipidemia, goal LDL below 70- Primary Other and unspecified hyperlipidemia documented in this encounter Advance Directives Latest Code Status on File Code Status Date Activated Date Inactivated Comments Full Code 09/22/2016 12:20 PM 09/28/2016 3:42 PM This order reflects the patients wishes and were consensually agreed upon. Question Answer Comments Discussion of Advance Directives occurred with: Patient Does the patient have a Living Will? No Does the patient have Health Care Power of Agent Contract Clerk? No Care Teams Academic Coach Relationship Specialty Start Date End Date Magy Segal MD [address] [place] [address] PCP - General Internal Medicine 08/08/19 documented as of this encounter
--- OUTSIDE RECORDS SUMMARY | 2023-07-28 21:44 | External Medical Summary ---
Author Name Unknown Address Unknown Organization K0G:[facility]ATORY [facility] [address] - [address] [place] [address] Laboratory Report Ordering Provider Test Date Status DANISHA LOPEZ 07/17/2023 07:55:00 Final Standing order for pt/inr.
Please draw pt/inr every 1 to 4 weeks as requested
Results to [facility]

Warfarin Therapy
INR: 2.0-3.0 conventional anticoagulation
INR: 2.5-3.5 high intensity anticoagulation Observation Date Value Abnormality Reference (Units ) Status PT 07/17/2023 07:55:00 30.1 Above high normal 11 .6-15.2 (seconds) Final INR 07/17/2023 07:55:00 2.9 Above high normal 0. 8-1.2 Final Performing Location LABORATORY [facility] [address] 0 - [address] [place] [address]
--- OUTSIDE RECORDS SUMMARY | 2023-07-28 21:44 | External Medical Summary | Summary of Care ---
Author Name Unknown Organization [facility] Address [address] [facility] [place] [address] Phone [phone] Care Team Providers Care Recreation Supervisor Name Role Phone Magy Segal MD Primary Care Provider + Reason for Visit * Reason Comments Dosage Adjustment Via Phone (anticoag Cl inic) Encounter Details Date Type Department Care Team (Latest Contact Info) Description 07/18/2023 6:00 AM EST Anticoagulation Pharmacy Call Center [phone] [place] [address] [facility] [address] [facility] [place] [address] S/P MVR (mitral valve replacement)*; Bioprosthetic mitral valve replacement, current hospitalization Allergies Active Allergy Reactions Criticality Noted Date Comments Haseeb Inhibitors Cough 04/04/2010 documented as of this encounter (statuses as of 07/18/2023) Medications Medication Sig Dispensed Refills Start Date End Date Status aspirin 81 MG chewable tablet Take 1 Tab by mouth daily. 30 Tab 3 09/28/2016 Active OneTouch Delica Lancets 33GIndications:Type 2 diabetes mellitus with hemoglobin A1c goal of less than 7.5% (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 0 10/03/2016 Overview: ICD-10 update of inactive term S/P MVR (mitral valve replacement) 09/28/2016 Overview: Bioprosthetic 29mm epic valve Coronary artery disease invo lving [place] coronary artery of [place] heart without angina pectoris 09/12/2016 Overview: 80% [...] as of this encounter (statuses as of 07/18/2023) Resolved Problems Problem Noted Date Diagnosed Date [...] as of this encounter (statuses as of 07/18/2023) Immunizations Name Administration Dates Next Due COVID-19 mRNA, LNP-s, No Pre serve, 2-Dose Series ([employer]) 08/27/2021,09/22/2020,09/01/2020 Hepatitis B, 20+ yrs 09/12/2016 Pneumococcal [...] as of this encounter Progress Notes * Princess Marte director internal audit - 07/18/2023 8:11 AM EST Contacts Type Contact Phone/Fax 07/18/2023 08:10 AM EST Phone (Outgoing) IVETT VILLAFUERTE (Emergency Contact) [phone] spoke to Ivett Subjective Patient Findings Negatives: Signs/symptoms of bleeding, Change in health, Change in activity, Upcoming invasive procedure, Missed doses, Extra doses, Change in medications, Change in diet/appetite, Bruising Advised patient to contact Anticoagulation Clinic if any unusual bruising or bleeding, recent illness, changes in medication, or questions/concerns. PT/INR results, Coumadin dose instructions, and next PT/INR date communicated as noted by Pharmacist: Yes HEMA RUIZ 07/18/2023, 8:11 AM * Nancy Medrano RPh - 07/18/2023 8:05 AM EST Coumadin Clinic (region specific) Objective Current Warfarin Dose As of 07/18/2023 Warfarin maintenance plan: 5 mg (5 mg x 1) every Sun, Tue, Darya; 2.5 mg (5 mg x 0.5) all other days INR Result As of 07/18/2023 INR goal: 2.0-3.0 INR used for dosin.9 (07/17/2023) Assessment & Plan Warfarin Plan As of 07/18/2023 Full warfarin instructions: 5 mg every Sun, Tue, Darya; 2.5 mg all other days No change documented: Nancy Medrano RPh Next INR check: 08/07/2023 Repeat PT/INR in 3 week(s) Weekly dose: not changed Additional Dosing Information: Description GML([facility]) Tech to contact patient with dose instructions as noted. Nancy Medrano RPh 07/18/2023, 8:05 AM documented in this encounter Plan of Treatment Upcoming Encounters Date Type Department Care Team (Late st Contact Info) Description 08/08/2023 6:00 AM EST Anticoagulation Pharmacy Call Center WB [phone] [place] [phone] [facility], [facility] [address] 60 [facility] [place] [address] 08/10/2023 9:00 AM EST Office Visit Cardiology, [facility] [address] [place] [address] Jayda Segura PA-C [address] [place] [address] 08/30/2023 10:00 AM EST Office Visit General Internal Medicine [facility] [address] [facility] [place] [address] Magy Segal MD [address] [facility] [place] [address] Scheduled Procedures Name Priority Associated Diagnoses Date/Ti [...] Depression Screening 08/29/2023 08/29/2022 HbA1c 11/19/2023 05/21/2023, 04/1 , 08/29/2022, Additional history exists GFR 12/11/2023 06/12/2023, 05/16, 05/21/2023, Additional history exists Diabetic Foot Exam 02/23/2024 02/22/2023, 0 02/16/2022, 01/04/2021, Additional history exists CKD PHOS USE SMARTSET 47119 05/21/2024 110 12/2022, 09/27/2021, 08/20/2020, Additional history exists Albumin/Creatinine Ratio 05/25/2024 023, 08/20/2020, 02/10/2020, Additional history exists CKD HGB USE SMARTSET 08882 06/12/202406/12, 06/12/2023, 05/29/2023, Additional history exists DTaP,Tdap,and [...] this encounter Medical Devices Implanted Type Area Office Administrative Assistant Device Identifier Shelf Expiration Date Model / Serial / Lot Sut Steel 6 [id number] - [id number] Implanted:Qty: 4 on 09/22/2016 by Dejon Carlos MD at [place] [facility] N/A: Sternum JNJ : [employer] 06/14/2021 [id number] / / [id number] documented as of this encounter Visit Diagnoses [...] the patient have Health Care Power of Airways Operations Specialist? No Care Teams Recreation Supervisor Relationship Specialty Start Date End Date Magy Segal MD [address] [place] [address] PCP - General Internal Medicine 08/08/19 documented as of this encounter
--- OUTSIDE RECORDS SUMMARY | 2023-07-28 21:45 | External Medical Summary | Summary of Care ---
Author Name Unknown Organization [facility] Address [address] [place] [address] Phone [phone] Care Team Providers Care Android Programmer Name Role Phone Magy Segal MD Primary Care Provider + Reason for Visit * Reason Onset Date Comments Test Results 05/29/2023 Encounter Details Date Type Department Care Team (Late st Contact Info) Description 05/29/2023 Telephone General Internal Medicine [facility] [address] [facility] [place] [address] Magy Segal MD 200 [place] [address] Test Results Allergies Active Allergy Reactions Criticality Noted Date Comments Haseeb Inhibitors Cough 04/04/2010 documented as of this encounter (statuses as of 05/31/2023) Medications Medication Sig Dispensed Refills Start Date End Date Status aspirin 81 MG chewable tablet Take 1 Tab by mouth daily. 30 Tab 3 09/28/2016 Active OneTouch Delica Lancets 33GIndications:Type 2 diabetes mellitus with hemoglobin A1c goal of less than 7.5% ([facility]) Test blood sugar once daily 100 Each 3 06/15/2020 Active OneTouch Verio In Vitro Strip (Glucose Blood)Indications:T ype 2 diabetes mellitus with hemoglobin A1c goal of less than 7.5% ([facility]) Test blood sugar once daily 100 Strip 3 07/21/2020 Active Fluticasone Propionate 50 MCG/ACT Nasal SuspensionIndicatio ns:Bronchitis, complicated Administer into each nostril 2 Sprays in the morning. 9.9 mL 2 08/30/2021 Active Additional Information Patient taking differently:2 [place] Each Nostril Daily(AM),As needed, Informant: Child, Reported [...] Oral Tablet (Jantoven)Indicatio ns:Coronary artery disease involving [place] coronary [...] Additional Information Patient not taking.Reported on 05/21/2023 Cefdinir 300 MG Oral Capsule (Omnicef)Indication s:Acute otitis media, left Take 1 Capsule by mouth in the morning and 1 Capsule before bedtime. Do all this for 10 days. For 10 days.. 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 0 10/03/2016 [...] as of this encounter (statuses as of 05/31/2023) Resolved Problems Problem Noted Date Diagnosed Date [...] as of this encounter (statuses as of 05/31/2023) Immunizations Name Administration Dates Next Due COVID-19 mRNA, LNP-s, No Pre serve, 2-Dose Series ([facility]) 08/27/2021,09/22/2020,09/01/2020 Hepatitis B, 20+ yrs 09/12/2016 Pneumococcal Conjugate Vacc, 13 Valent (Prevnar) 06/03/2015 Pneumococcal Polysaccharide PPV23 (Pneumovax) 09/03/2006 Season Influenza, Quad, PF, Adjuvanted, 65+ Yrs, IM (FLUAD) 05/06/2020 Seasonal Influenza, Quadriva lent Hd (Fluzone Hd) 08/29/2022,07/25/2021 Seasonal Influenza, Split, I IV3, With Preserve, Inj 04/22/2003 TDAP (age 11 and older)(Adacel) 09/13/2022,10/31 Zoster [...] as of this encounter Miscellaneous Notes * Addendum Note - Magy Segal MD - 05/31/2023 3:47 PM ESTAddended by: MAGY SEGAL on: 05/31/2023 03:47 PM Modules accepted: Orders * Telephone Encounter - Magy Segal MD - 05/31/2023 3:46 PM EST Can repeat cbcd ,LFT in 2 weeks from now. Order is in. No further work up needed if clinically improving. * Telephone Encounter - Rubén Esquivel LPN - 05/29/2023 5:11 PM EST Patient's daughter informed and voiced understanding. She states her mom still has the ear infection and she is taking the antibiotics. The pt's daughteralso stated that her mom's symptoms are improving on the antibiotics. She also questioned the ALT test and she was wondering if anything should be done regarding this. Please advise. * Telephone Encounter - Rubén Esquivel LPN - 05/29/2023 5:08 PM EST ----- Message from Magy Segal MD sent at 05/29/2023 1:32 PM EST ----- Repeat labs shows worsening ALT, high wbc count. Please find how she is doing clinically. Recently treated for ear infection and was on an antibiotics. documented in this encounter Plan of Treatment Upcoming Encounters Date Type Department Care Team (Late st Contact Info) Description 06/12/2023 8:30 AM EST Laboratory Lab [facility] [address] [place] [address] [facility], [facility] Mobile Home Draw [address] [place] [address] 06/13/2023 6:00 AM EST Anticoagulation Pharmacy Call Center WB [phone] [facility] [place] [address] Ccp, [facility] 58 60 [facility] [address] 08/10/2023 9:00 AM EST Office Visit Cardiology, [facility] [address] [place] [address] Jayda Segura, [place] [facility] [place] [address] 08/30/2023 10:00 AM EST Office Visit General Internal Medicine [facility] [address] [facility] [place] [address] Magy Segal MD [address] [facility] [place] [address] Scheduled Orders Name Type Priority Associated Diagnoses Orde r Schedule COMPREHENSIVE METABOLIC PANEL Lab Routine Elevated LFTs Expected: 05/31/2023 (Approximate), Expires: 05/30/2024 CBC WITH WBC DIFFERENTIAL Lab Routine Abnormal white blood cell (WBC) Expected: 05/31/2023 (Approximate), Expires: 05/31/2024 Scheduled Procedures Name Priority Associated Diagnoses Date/Ti me COLONOSCOPY FLEXIBLE PROXIMA L DIAGNOSTIC Recall Family history of colorectal cancer Health Maintenance Due Date Last Done Comments Hepatitis B (2 of 3 - Risk 3-dose series) 10/10/2016 09/12/2016 *BISPHONATE OR OTHER ACCEPTABLE MEDICATION NEEDED FOR OSTEOPOROSIS (REFER TO SMARTSET #1146) 02/18/2022 Diabetic Eye Exam 05/27/2022 05/27/2021, , 01/30/2019, Additional history exists COVID-19 Vaccine (2022-24 season) 2023 08/27/2021, 09/22/2020, 09/01/2020 Influenza Vaccine (FLU shot) (#1) 2023 08/29/2022, 07/25/2021, 05/06/2020, Additional history exists Depression Screening 08/29/2023 08/29/2022 HbA1c 11/19/2023 05/21/2023, 10/14, 08/29/2022, Additional history exists GFR 11/27/2023 05/29/2023, 12/2022, 08/29/2022, Additional history exists Diabetic Foot Exam 02/23/2024 02/22/2023, 0 02/16/2022, 01/04/2021, Additional history exists CKD PHOS USE SMARTSET 62751 05/21/202412/2022, 09/27/2021, 08/20/2020, Additional history exists Albumin/Creatinine Ratio 05/25/20242 023, 08/20/2020, 02/10/2020, Additional history exists CKD HGB USE SMARTSET 58540 05/29/202405/29, 05/29/2023, 05/21/2023, Additional history exists DTaP,Tdap,and Td Vaccines (3 [...] this encounter Medical Devices Implanted Type Area Grind Operator Device Identifier Shelf Expiration Date Model / Serial / Lot Shaun Collado 6 [id number] - [id number] Implanted:Qty: 4 on 09/22/2016 by Dejon Carlos MD [place] [facility] N/A: Sternum JNJ : [employer] 06/14/2021 [id number] / / [id number] documented as of this encounter Visit Diagnoses Diagnosis Elevated LFTs- Primary Other abnormal blood chemistry Abnormal white blood cell (WBC) documented in this encounter Advance Directives Latest Code Status on File Code Status Date Activated Date Inactivated Comments Full Code 09/22/2016 12:20 PM 09/28/2016 3:42 PM This order reflects the patients wishes and were consensually agreed upon. Question Answer Comments Discussion of Advance Directives occurred with: Patient Does the patient have a Living Will? No Does the patient have Health Care Power of Prop And Effects Designer? No Care Teams Android Programmer Relationship Specialty Start Date End Date Magy Segal MD [address] [place] [address] PCP - General Internal Medicine 08/08/19 documented as of this encounter
--- OUTSIDE RECORDS SUMMARY | 2023-07-28 21:45 | External Medical Summary | Summary of Care ---
Author Name Unknown Organization [facility] Address [address] [place] [address] Phone [phone] Care Team Providers Care Lodge Sales Associate Name Role Phone Magy Segal MD Primary Care Provider + Reason for Visit * Reason Onset Date Comments Test Results 05/29/2023 Encounter Details Date Type Department Care Team (Late st Contact Info) Description 05/29/2023 Telephone General Internal Medicine [facility] 200 [facility] [place] [address] Magy Segal MD 200 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 0 10/03/2016 Overview: ICD-10 update of inactive term S/P MVR (mitral valve replacement) 09/28/2016 Overview: Bioprosthetic 29mm epic valve Coronary artery disease invo lving [place] coronary artery of [place] heart without angina pectoris 09/12/2016 Overview: 80% [...] mRNA, LNP-s, No Pre serve, 2-Dose Series ([facility]) 08/27/2021,09/22/2020,09/01/2020 Hepatitis B, 20+ yrs 09/12/2016 Pneumococcal [...] 8:30 AM EST Laboratory Lab Mobile Phlebotomy [facility] [address] [place] [address] [facility], [facility] Mobile Home Draw [address] [place] [address] 06/13/2023 6:00 AM EST Anticoagulation Pharmacy Call Center WB [address] [facility] [place] [address] Ccp, [facility] 58 60 [facility] [address] 08/10/2023 9:00 AM EST Office Visit Cardiology, [facility] [address] [place] [address] Jayda Segura, ROCKY [address] [facility] [place] [address] 08/30/2023 10:00 AM EST Office Visit General Internal Medicine [facility] [place] [address] Magy Segal MD 200 [facility] [place] [address] Scheduled Orders Name Type Priority Associated Diagnoses [...] Additional history exists CKD PHOS USE SMARTSET 52537 05/21/202412/2022, 09/27/2021, 08/20/2020, Additional history exists Albumin/Creatinine Ratio 05/25/20242 023, 08/20/2020, 02/10/2020, Additional history exists CKD HGB USE SMARTSET 96176 05/29/202405/29, 05/29/2023, 05/21/2023, Additional history exists DTaP,Tdap,and [...] this encounter Medical Devices Implanted Type Area Merit System Director Device Identifier Shelf Expiration Date Model / Serial / Lot Shaun Colaldo 6 M654g - [id number] Implanted:Qty: 4 on 09/22/2016 by Dejon Carlos MD at [place] [facility] N/A: Sternum JNJ : [employer] 06/14/2021 [id number] / / [id number] documented as of this encounter Visit Diagnoses [...] the patient have Health Care Power of Material Mixer? No Care Teams Lodge Sales Associate Relationship Specialty Start Date End Date Magy Segal MD [address] [place] [address] PCP - General Internal Medicine 08/08/19 documented as of this encounter
--- OUTSIDE RECORDS SUMMARY | 2023-07-28 21:45 | External Medical Summary ---
Author Name Unknown Address Unknown Organization K0[facility] [address] [place] [address] Laboratory Report Ordering Provider Test Date Status MIGUEL MACHUCA 06/12/2023 08:00:00 Final Observation Date Value Abnormality Reference (Units ) Status BUN 06/12/2023 08:00:00 14 6-20 (mg/dL) Final Creatinine 06/12/2023 08:00:00 1.2 Above high normal 0.5-1.0 (mg/dL) Final Glomerular filtration rate/1.73 sq M.predicted [Volume Rate/Area] in Serum, Plasma or Blood by Creatinine-based formula (CKD-EPI) 06/12/2023 08:00:00 45 Below low normal >=60 (mL/min) Final eGFR is calculated based on the CKD-EPI 2020 equation SODIUM 06/12/2023 08:00:00 138 135-146 (m mol/L) Final Potassium 06/12/2023 08:00:00 4.6 3.5-5.1 (m mol/L) Final Cl 06/12/2023 08:00:00 105 98-107 (mm ol/L) Final CO2 06/12/2023 08:00:00 24 22-32 (mmo l/L) Final Anion gap 06/12/2023 08:00:00 9 7-15 (mmol /L) Final Glucose 06/12/2023 08:00:00 87 70-120 (mg /dL) Final Albumin 06/12/2023 08:00:00 3.3 Below low normal 3.8 -5.0 (g/dL) Final AST (Aspartate aminotransferase) 06/12/2023 08:00:00 22 10-35 (U/L) Fin al Alk Phos 06/12/2023 08:00:00 85 35-130 (U/ L) Final Bilirubin, Total 06/12/2023 08:00:00 0.4 <=1 .2 (mg/dL) Final Calcium 06/12/2023 08:00:00 8.7 8.4-10.2 ( mg/dL) Final Protein 06/12/2023 08:00:00 5.6 Below low normal 6.0 -8.3 (g/dL) Final ALT (Alanine aminotransferase) 06/12/2023 08:00:00 31 10-35 (U/L) Shaquille cabral Performing Location [facility] [place] [address] [facility] [address]
--- OUTSIDE RECORDS SUMMARY | 2023-07-28 21:45 | External Medical Summary | Summary of Care ---
Author Name Unknown Organization [facility] Address [address] [facility] [place] [address] Phone [phone] Care Team Providers Care Quality Systems Engineer Name Role Phone Magy Segal MD Primary Care Provider + Reason for Visit * Reason Comments Dosage Adjustment Via Phone (anticoag Cl inic) Encounter Details Date Type Department Care Team (Latest Contact Info) Description 05/30/2023 6:00 AM EST Anticoagulation Pharmacy Call Center [address] [place] [address] [facility] [address] [facility] [place] [address] S/P MVR (mitral valve replacement)*; Bioprosthetic mitral valve replacement, current hospitalization Allergies Active Allergy Reactions Criticality Noted Date Comments Haseeb Inhibitors Cough 04/04/2010 documented as of this encounter (statuses as of 05/30/2023) Medications Medication Sig Dispensed Refills Start Date End Date Status aspirin 81 MG chewable tablet Take 1 Tab by mouth daily. 30 Tab 3 09/28/2016 Active OneTouch Delica Lancets 33GIndications:Type 2 diabetes mellitus with hemoglobin A1c goal of less than 7.5% ([facility]) Test blood sugar once daily 100 Each [...] 08/30/2021 Active Additional Information Patient taking differently:2 [place] Each Nostril Daily(AM),As needed, Informant: Child, Reported [...] Oral Tablet (Jantoven)Indicatio ns:Coronary artery disease involving [place] coronary artery of [place] heart without angina pectoris,S/P MVR (mitral valve [...] as of this encounter (statuses as of 05/30/2023) Active Problems Problem Noted Date Diagnosed Date [...] (NSTEMI) 07/20/2017 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 0 10/03/2016 Overview: ICD-10 update of inactive term S/P MVR (mitral valve replacement) 09/28/2016 Overview: Bioprosthetic 29mm epic valve Coronary artery disease invo lving [place] coronary artery of [place] heart without angina pectoris 09/12/2016 Overview: 80% [...] as of this encounter (statuses as of 05/30/2023) Resolved Problems Problem Noted Date Diagnosed Date [...] as of this encounter (statuses as of 05/30/2023) Immunizations Name Administration Dates Next Due COVID-19 [...] of this encounter Progress Notes * Nancy Medrano RPh - 05/30/2023 9:14 AM EST Noted Nancy Medrano Rph, Pharm.D. Clinical Pharmacist [facility] [phone] 05/30/2023,9:14 AM * Adam Kee CPhT - 05/30/2023 8:33 AM EST Contacts Type Contact Phone/Fax 05/30/2023 08:27 AM EST Phone (Outgoing) [facility] (Emergency Contact) [phone] Subjective Patient Findings Positives: Change in health (cold symptoms and ear infection), Change in medications (Cefdinir finish tomorrow & Prednisone finish today, no N/V/D reported.) Negatives: Signs/symptoms of thrombosis, Signs/symptoms of bleeding, Change in alcohol use, Change in activity, Upcoming invasive procedure, Missed doses, Extra doses, Change in diet/appetite, Bruising Advised patient to contact Anticoagulation Clinic if any unusual bruising or bleeding, recent illness, changes in medication, or questions/concerns. PT/INR results, Coumadin dose instructions, and next PT/INR date communicated as noted by Pharmacist: Yes Adam Kee CPhT 05/30/2023, 8:33 AM * Nancy Medrano RPh - 05/30/2023 8:05 AM EST Images from the original note were not included. Coumadin Clinic (region specific) Objective Current Warfarin Dose As of 05/30/2023 Warfarin maintenance plan: 5 mg (5 mg x 1) every Sun, Darya; 2.5 mg (5 mg x 0.5) all other days INR Result As of 05/30/2023 INR goal: 2.0-3.0 INR used for dosin.9 (05/29/2023) Assessment & Plan Warfarin Plan As of 05/30/2023 Full warfarin instructions: 05/30: 5 mg; Otherwise 5 mg every Sun, Darya; 2.5 mg all other days Next INR check: 06/12/2023 Repeat PT/INR in 2 week(s) Weekly dose: not changed Additional Dosing Information: Description [facility]) Tech to contact patient with dose instructions as noted. Nancy Medrano RPh 05/30/2023, 8:05 AM documented in this encounter Plan of Treatment Upcoming Encounters Date Type Department Care Team (Late st Contact Info) Description 06/12/2023 8:30 AM EST Laboratory Lab Mobile Phlebotomy [facility] [address] [place] [address] [facility], [facility] Mobile Home Draw [address] [place] [address] 06/13/2023 6:00 AM EST Anticoagulation Pharmacy Call Center [address] [place] [address] [facility] [address] [place] [address] 08/10/2023 9:00 AM EST Office Visit Cardiology, [facility] [address] [place] [address] Jayda Segura PA-C [address] [place] [address] 08/30/2023 10:00 AM EST Office Visit General Internal Medicine [facility] [address] [place] [address] Magy Segal MD [address] [place] [address] Scheduled Procedures Name Priority Associated Diagnoses Date/Ti [...] 04/1 , 08/29/2022, Additional history exists GFR 11/27/2023 05/29/2023, 1112/2022, 08/29/2022, Additional history exists Diabetic Foot Exam 02/23/2024 02/22/2023, 0 02/16/2022, 01/04/2021, Additional history exists CKD PHOS USE SMARTSET 91061 05/21/2024 110 12/2022, 09/27/2021, 08/20/2020, Additional history exists Albumin/Creatinine Ratio 05/25/2024 023, 08/20/2020, 02/10/2020, Additional history exists CKD HGB USE SMARTSET 74737 05/29/202405/29, 05/29/2023, 05/21/2023, Additional history exists DTaP,Tdap,and [...] this encounter Medical Devices Implanted Type Area Electrician Supervisor Device Identifier Shelf Expiration Date Model / Serial / Lot Sut Steel 6 [id number] - [id number] Implanted:Qty: 4 on 09/22/2016 by Dejon Carlos MD at OR [facility] N/A: Sternum JNJ : [employer] 06/14/2021 [id number] / / [id number] documented as of this encounter Visit Diagnoses [...] the patient have Health Care Power of Technical Implementation Lead? No Care Teams Quality Systems Engineer Relationship Specialty Start Date End Date Magy Segal MD [address] [facility] [place] [address] PCP - General Internal Medicine 08/08/19 documented as of this encounter
--- OUTSIDE RECORDS SUMMARY | 2023-07-28 21:45 | External Medical Summary | Summary of Care ---
Author Name Unknown Organization [facility] Address [address] [place] [address] Phone [phone] Care Team Providers Care Shanker Out Name Role Phone Magy Segal MD Primary Care Provider + Encounter Details Date Type Department Care Team (Late st Contact Info) Description 06/12/2023 8:30 AM EST Laboratory Lab Mobile Phlebotomy [facility] [address] [place], [place] [id number] [facility], [facility] Mobile Home Draw [address] [place] [address] Iron deficiency anemia, unspecified iron deficiency anemia type*; S/P MVR (mitral valve replacement); Bioprosthetic mitral valve replacement, current hospitalization; Encounter for long-term (current) use of other medications; Elevated LFTs; Abnormal white blood cell (WBC); B12 deficiency; Folic acid deficiency Allergies Active Allergy Reactions Criticality Noted Date Comments Haseeb Inhibitors Cough 04/04/2010 documented as of this encounter (statuses as of 06/12/2023) Medications Medication Sig Dispensed Refills Start Date End Date Status aspirin 81 MG chewable tablet Take 1 Tab by mouth daily. 30 Tab 3 09/28/2016 Active OneTouch Delica Lancets 33GIndications:Type 2 diabetes mellitus with hemoglobin A1c goal of less than 7.5% ([facility]) Test blood sugar once daily 100 Each 3 06/15/2020 Active OneTouch Verio In Vitro Strip (Glucose Blood)Indications:T ype 2 diabetes mellitus with hemoglobin A1c goal of less than 7.5% ([facility]) Test blood sugar once daily 100 Strip 3 07/21/2020 Active Fluticasone Propionate 50 MCG/ACT Nasal SuspensionIndicatio ns:Bronchitis, complicated Administer into each nostril 2 Sprays in the morning. 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 0 10/03/2016 Overview: ICD-10 update of inactive term S/P MVR (mitral valve replacement) 09/28/2016 Overview: Bioprosthetic 29mm epic valve Coronary artery disease invo lving [place] coronary artery of [place] heart without angina pectoris 09/12/2016 Overview: 80% [...] as of this encounter (statuses as of 06/12/2023) Resolved Problems Problem Noted Date Diagnosed Date [...] as of this encounter (statuses as of 06/12/2023) Immunizations Name Administration Dates Next Due COVID-19 mRNA, LNP-s, No Pre serve, 2-Dose Series (E[employer]) 08/27/2021,09/22/2020,09/01/2020 Hepatitis B, 20+ yrs 09/12/2016 Pneumococcal [...] as of this encounter Miscellaneous Notes * Result Encounter Note - Magy Segal MD - 06/12/2023 3:58 PM EST Labs are showing still low but improvement in the kidney functions. Continue hydration and avoid any sszk-ret-znyllmi NSAIDs. Patient does have mild anemia and I have added few more blood test. She can start taking uuig-zqu-nnmjxvc iron pill 1 every other day. I would also ask her to do the stool card an order is in the system. documented in this encounter Plan of Treatment Upcoming Encounters Date Type Department Care Team (Late st Contact Info) Description 06/13/2023 6:00 AM EST Anticoagulation Pharmacy Call Center [address] [facility] [place] [address] [facility] 58 60 [facility] [place] [address] 08/10/2023 9:00 AM EST Office Visit Cardiology, [facility] [place] [address] Jayda Segura PA-C [address] [place] [address] 08/30/2023 10:00 AM EST Office Visit General Internal Medicine [facility] [address] [facility] [place] [address] Magy Segal MD [address] [place] [address] Scheduled Orders Name Type Priority Associated Diagnoses Orde r Schedule VITAMIN B12 Lab Routine B12 deficiency Expected: 06/12/2023 (Approximate), Expires: 06/11/2024 IRON SCREEN, INCLUDING TIBC Lab Routine Iron deficiency anemia, unspecified iron deficiency anemia type Expected: 06/12/2023 (Approximate), Expires: 06/11/2024 FOLIC ACID Lab Routine Folic acid deficiency Expected: 06/12/2023 (Approximate), Expires: 06/11/2024 FERRITIN Lab Routine Iron deficiency anemia, unspecified iron deficiency anemia type Expected: 06/12/2023 (Approximate), Expires: 06/11/2024 Scheduled Procedures Name Priority Associated Diagnoses Date/Ti [...] Additional history exists CKD PHOS USE SMARTSET 26990 05/21/2024/0 12/2022, 09/27/2021, 08/20/2020, Additional history exists Albumin/Creatinine Ratio 05/25/20242 023, 08/20/2020, 02/10/2020, Additional history exists CKD HGB USE SMARTSET 45036 06/12/202406/12, 06/12/2023, 05/29/2023, Additional history exists DTaP,Tdap,and [...] this encounter Medical Devices Implanted Type Area Continuous Improvement Director Device Identifier Shelf Expiration Date Model / Serial / Lot Sut Steel 6 [id number] - [id number] Implanted:Qty: 4 on 09/22/2016 by Dejon Carlos MD at OR [facility] N/A: Sternum JNJ : [employer] 06/14/2021 [id number] / / [id number] documented as of this encounter Procedures Procedure Name Priority Date/Time Associated Diagnosis Comments DIFFERENTIAL, AUTOMATED Routine 06/12/2023 8:00 AM EST Abnormal white blood cell (WBC) COMPREHENSIVE METABOLIC PANEL Routine 06/12/2023 8:00 AM EST Elevated LFTs CBC Routine 06/12/2023 8:00 AM EST Abnormal white blood cell (WBC) PT INR Routine 06/12/2023 8:00 AM EST S/P MVR (mitral valve replacement) Bioprosthetic mitral valve replacement, current hospitalization Encounter for long-term (current) use of other medications CBC Routine 06/12/2023 8:00 AM EST Abnormal white blood cell (WBC) documented in this encounter Results * DIFFERENTIAL, AUTOMATED (06/12/2023 8:00 AM EST) WBC 9.02 4.00 - 10.80 K/uL 06/12/2023 12:41 PM EST [facility] [place] [facility]10 Neutrophils % 48.8 40.0 - 75.0 % 06/12/2023 12:41 PM EST [facility] [place] 57-10 Lymphocytes % 33.3 18.0 - 42.0 % 06/12/2023 12:41 PM EST [facility] [place] 57-10 Monocytes % 11.0 1.0 - 11.0 % 06/12/2023 12:41 PM EST [facility] [place] 57-10 Eosinophils % 6.0 0.0 - 6.0 % 06/12/2023 12:41 PM EST [facility] [place] 57-10 Basophils % 0.9 0.0 - 2.0 % 06/12/2023 12:41 PM EST [facility] [place] 57[facility]10 Absolute Neutrophils 4.41 1.80 - 7.70 K/uL 06/12/2023 12:41 PM EST [facility] [place] 57-10 Absolute Lymphocytes 3.00 1.00 - 4.80 K/ul 06/12/2023 12:41 PM EST [facility] [place] 57[facility]10 Absolute Monocytes 0.99 0.00 - 1.10 K/uL 06/12/2023 12:41 PM EST [facility] [place] 57[facility]10 Absolute Eosinophils 0.54 0.00 - 0.70 K/uL 06/12/2023 12:41 PM EST [facility] [place] 57[facility]10 Absolute Basophils 0.08 0.00 - 0.20 K/uL 06/12/2023 12:41 PM EST [facility] [place] 57-10 Blood Venous blood specimen / Unknown Venipuncture / Unknown 06/12/2023 8:00 AM EST 06/12/2023 11:29 AM EST Magy Segal MD LAB BLOOD ORDERA BLES [facility] [place] 57-10 [address] [facility] [place] [address] * (ABNORMAL) CBC (06/12/2023 8:00 AM EST) WBC 9.02 4.00 - 10.80 K/uL 06/12/2023 12:41 PM EST [facility] [place] 57-10 RBC 3.90 3.85 - 5.15 M/uL 06/12/2023 12:41 PM EST [facility] [place] 57-10 HGB 11.2(L) 12.0 - 15.3 g/dL 06/12/2023 12:41 PM EST [facility] [place] 57-10 HCT 34.8(L) 36.0 - 45.2 % 06/12/2023 12:41 PM EST [facility] [place] 57[facility]10 MCV 89.2 81.5 - 97.5 fL 06/12/2023 12:41 PM EST [facility] [place] 57[facility]10 MCH 28.7 27.0 - 34.0 pg 06/12/2023 12:41 PM EST [facility] [place] 57[facility]10 MCHC 32.2 32.0 - 36.0 g/dL 06/12/2023 12:41 PM EST [facility] [place] 57[facility]10 RDW 15.4 11.5 - 15.5 % 06/12/2023 12:41 PM EST [facility] [place] 57[facility]10 PLT 199 140 - 400 K/uL 06/12/2023 12:41 PM EST [facility] [place] 57[facility]10 MPV 11.0 6.6 - 11.1 fL 06/12/2023 12:41 PM EST [facility] [place] 57[facility]10 Blood Venous blood specimen / Unknown Venipuncture / Unknown 06/12/2023 8:00 AM EST 06/12/2023 11:29 AM EST Magy Segal MD LAB BLOOD ORDERA BLES [facility] [place] [address] [place] [address] [place] [address] * (ABNORMAL) COMPREHENSIVE METABOLIC PANEL (06/12/2023 8:00 AM EST) BUN 14 6 - 20 mg/dL 06/12/2023 12:07 PM EST [facility] [place] 57[facility]10 Creatinine 1.2(H) 0.5 - 1.0 mg/dL 06/12/2023 12:07 PM EST [facility] [place] 57-10 Estimated Glomerular Filtration Rate 45(L) >=60 mL/min 06/12/2023 12:07 PM EST [facility] [place] 57-10 Comment:eGFR is calculated b ased on the CKD-EPI 2020 equation Sodium 138 135 - 146 mmol/L 06/12/2023 12:07 PM EST [facility] [place] 57-10 Potassium 4.6 3.5 - 5.1 mmol/L 06/12/2023 12:07 PM EST [facility] [place] 57-10 Chloride 105 98 - 107 mmol/L 06/12/2023 12:07 PM EST [facility] [place] 57[facility]10 CO2 24 22 - 32 mmol/L 06/12/2023 12:07 PM EST [facility] [place] 57[facility]10 Anion Gap 9 7 - 15 mmol/L 06/12/2023 12:07 PM EST [facility] [place] 57[facility]10 Glucose 87 70 - 120 mg/dL 06/12/2023 12:07 PM EST [facility] [place] 57-10 Albumin 3.3(L) 3.8 - 5.0 g/dL 06/12/2023 12:07 PM EST [facility] [place] 57[facility]10 AST 22 10 - 35 U/L 06/12/2023 12:07 PM EST [facility] [place] 57[facility]10 Alkaline Phosphatase 85 35 - 130 U/L 06/12/2023 12:07 PM EST [facility] [place] 57-10 Bilirubin, Total 0.4 <=1.2 mg/dL 06/12/2023 12:07 PM EST [facility] [place] 57[facility]10 Calcium 8.7 8.4 - 10.2 mg/dL 06/12/2023 12:07 PM EST [facility] [place] 57[facility]10 Protein 5.6(L) 6.0 - 8.3 g/dL 06/12/2023 12:07 PM EST [facility] [place] 57[facility]10 ALT 31 10 - 35 U/L 06/12/2023 12:07 PM EST [facility] [place] 57-10 Blood Venous blood specimen / Unknown Venipuncture / Unknown 06/12/2023 8:00 AM EST 06/12/2023 11:29 AM EST Magy Segal MD LAB BLOOD ORDERA BLES [facility] [place] 57-10 [address] [place] [address] * (ABNORMAL) PT INR (06/12/2023 8:00 AM EST) Prothrombin Time 21.8(H) 11.6 - 15.2 seconds 06/12/2023 12:07 PM EST [facility] [place] 57-10 INR 1.9(H) 0.8 - 1.2 06/12/2023 12:07 PM EST [facility] [place] 57-10 Blood Venous blood specimen / Unknown Venipuncture / Unknown 06/12/2023 8:00 AM EST 06/12/2023 11:30 AM EST Narrative [facility] [place] 57-10 - 06/12/2023 12:07 PM EST Warfarin Therapy INR: 2.0-3.0 conventional anticoagulation INR: 2.5-3.5 high intensity anticoagulation [facility] LAB BLOOD ORDERABL ES [facility] [place] 57-10 [address] [place] [address] documented in this encounter Visit Diagnoses Diagnosis Iron deficiency anemia, unspecified iron deficiency anemia type- Primary S/P MVR (mitral valve replacement) Heart valve replaced by other means Bioprosthetic mitral valve replacement, current hospitalization Heart valve replaced by other means Encounter for long-term (current) use of other medications Elevated LFTs Other abnormal blood chemistry Abnormal white blood cell (WBC) B12 deficiency Other B-complex deficiencies Folic acid deficiency Other B-complex deficiencies documented [...] the patient have Health Care Power of [place] Sample Case? No Care Teams Shanker Out Relationship Specialty Start Date End Date Magy Segal MD [address] [facility] [place] [address] PCP - General Internal Medicine 08/08/19 documented as of this encounter
--- OUTSIDE RECORDS SUMMARY | 2023-07-28 21:45 | External Medical Summary ---
Author Name Unknown Address Unknown Organization [id number]:[facility] [place] [address] - [address] [place] [address] Laboratory Report Ordering Provider Test Date Status MIGUEL MACHUCA 06/12/2023 08:00:00 Final Observation Date Value Abnormality Reference (Units ) Status WBC, Total 06/12/2023 08:00:00 9.02 4.00-10.8 0 (K/uL) Final RBC 06/12/2023 08:00:00 3.90 3.85-5.15 (M/uL) Final Hemoglobin 06/12/2023 08:00:00 11.2 Below low normal 12 .0-15.3 (g/dL) Final HCT 06/12/2023 08:00:00 34.8 Below low normal 36. 0-45.2 (%) Final MCV 06/12/2023 08:00:00 89.2 81.5-97.5 (fL) Final MCH 06/12/2023 08:00:00 28.7 27.0-34.0 (pg) Final MCHC 06/12/2023 08:00:00 32.2 32.0-36.0 (g/dL) Final RDW 06/12/2023 08:00:00 15.4 11.5-15.5 (%) Final Platelets 06/12/2023 08:00:00 199 140-400 (K /uL) Final MPV 06/12/2023 08:00:00 11.0 6.6-11.1 ( fL) Final Performing Location [facility] 57-1 0 - [address] [place] [address]
--- OUTSIDE RECORDS SUMMARY | 2023-07-28 21:45 | External Medical Summary | Summary of Care ---
Author Name Unknown Organization [facility] Address [address] [place] [address] Phone [phone] Care Team Providers Care Magneto Electrician Name Role Phone Sven Segal MD Primary Care Provider + Reason for Visit * Reason Onset Date Comments Test Results 05/29/2023 Encounter Details Date Type Department Care Team (Late st Contact Info) Description 05/29/2023 Telephone General Internal Medicine [facility] [address] [facility] [place] [address] Sven Segal MD 200 [place] [address] Test Results Allergies Active Allergy Reactions Criticality [...] hemoglobin A1c goal of less than 7.5% ([facility]) Test blood sugar once daily 100 Each 3 06/15/2020 Active OneTouch Verio In Vitro Strip (Glucose Blood)Indications:T ype 2 diabetes mellitus with hemoglobin A1c goal of less than 7.5% ([facility]) Test blood sugar once daily 100 Strip 3 07/21/2020 Active Fluticasone Propionate 50 MCG/ACT Nasal SuspensionIndicatio ns:Bronchitis, complicated Administer into each nostril 2 Sprays in the morning. 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 0 10/03/2016 Overview: ICD-10 update of inactive term S/P MVR (mitral valve replacement) 09/28/2016 Overview: Bioprosthetic 29mm epic valve Coronary artery disease invo lving [place] coronary artery of [place] heart without angina pectoris 09/12/2016 Overview: 80% [...] mRNA, LNP-s, No Pre serve, 2-Dose Series (Vacatia) 08/27/2021,09/22/2020,09/01/2020 Hepatitis B, 20+ yrs 09/12/2016 Pneumococcal [...] encounter Miscellaneous Notes * Telephone Encounter - Linwood Bacno CMA - 05/31/2023 4:26 PM EST Patient's daughter is aware and verbalized understanding * Addendum Note - Sven Segal MD - 05/31/2023 3:47 PM ESTAddended by: SVEN SEGAL on: 05/31/2023 03:47 PM Modules accepted: Orders * Telephone Encounter - Sven Segal MD - 05/31/2023 3:46 PM EST [...] 05/29/2023 5:08 PM EST ----- Message from Sven Segal MD sent at 05/29/2023 1:32 PM EST ----- Repeat labs shows worsening ALT, high wbc count. Please find how she is doing clinically. Recently treated for ear infection and was on an antibiotics. documented in this encounter Plan of Treatment Upcoming Encounters Date Type Department Care Team (Late st Contact Info) Description 06/12/2023 8:30 AM EST Laboratory Lab [facility] [address] [place] [address] [facility] Mobile Home Draw [address] [place] [address] 06/13/2023 6:00 AM EST Anticoagulation Pharmacy Call Center [facility] [address] [facility] [place] [address] [facility] [address] [facility] [place] [address] 08/10/2023 9:00 AM EST Office Visit Cardiology, [facility] [address] [facility] [place] [address] Jayda Segura PA-C [address] [place] [address] 08/30/2023 10:00 AM EST Office Visit General Internal Medicine [facility] [address] [place] [address] Sven Segal MD 200 [facility] [place] [address] Scheduled Orders Name Type Priority Associated Diagnoses [...] Depression Screening 08/29/2023 08/29/2022 HbA1c 11/19/2023 05/21/2023, 04/, 08/29/2022, Additional history exists GFR 11/27/2023 05/29/2023, 1112/2022, 08/29/2022, Additional history exists Diabetic Foot Exam 02/23/2024 02/22/2023, 0 02/16/2022, 01/04/2021, Additional history exists CKD PHOS USE SMARTSET 25600 05/21/20240 12/2022, 09/27/2021, 08/20/2020, Additional history exists Albumin/Creatinine Ratio 05/25/20242 023, 08/20/2020, 02/10/2020, Additional history exists CKD HGB USE SMARTSET 22576 05/29/202405/29, 05/29/2023, 05/21/2023, Additional history exists DTaP,Tdap,and [...] this encounter Medical Devices Implanted Type Area Job Putter Up And Ticket Preparer Device Identifier Shelf Expiration Date Model / Serial / Lot Shaun Collado 6 M654g - [id number] Implanted:Qty: 4 on 09/22/2016 by Dejon Carlos MD at OR [facility] N/A: Sternum JNJ : [employer] 06/14/2021 [id number] / / [id number] documented as of this encounter Visit Diagnoses [...] the patient have Health Care Power of Color Grinder? No Care Teams Magneto Electrician Relationship Specialty Start Date End Date Sven Segal MD [address] [place] [address] PCP - General Internal Medicine 08/08/19 documented as of this encounter
--- OUTSIDE RECORDS SUMMARY | 2023-07-28 21:45 | External Medical Summary | Summary of Care ---
Author Name Unknown Organization [facility] Address [address] [place] [address] Phone [phone] Care Team Providers Care Schedule Announcer Name Role Phone Sven Segal MD Primary Care Provider + Reason for Visit * Reason Onset Date Comments Test Results 05/29/2023 Encounter Details Date Type Department Care Team (Late st Contact Info) Description 05/29/2023 Telephone General Internal Medicine [facility] [address] [facility] [place] [address] Sven Segal MD 200 [place] [address] Test Results Allergies Active Allergy Reactions Criticality Noted Date Comments Haseeb Inhibitors Cough 04/04/2010 documented as of this encounter (statuses as of 06/12/2023) Medications Medication Sig Dispensed Refills Start Date End Date Status aspirin 81 MG chewable tablet Take 1 Tab by mouth daily. 30 Tab 3 09/28/2016 Active OneTouch Delica Lancets 33GIndications:Typ e 2 diabetes mellitus with hemoglobin A1c goal of less than 7.5% ([facility]) Test blood sugar once daily 100 Each 3 06/15/2020 Active OneTouch Verio In Vitro Strip (Glucose Blood)Indications: Type 2 diabetes mellitus with hemoglobin A1c goal of less than 7.5% ([facility]) Test blood sugar once daily 100 Strip 3 07/21/2020 Active Fluticasone Propionate 50 MCG/ACT Nasal SuspensionIndicati ons:Bronchitis, complicated Administer into each nostril 2 Sprays in the morning. 9.9 mL 2 08/30/2021 Active Additional Information Patient taking differently:2 [place] Each Nostril Daily(AM),As needed, Informant: Child, Reported [...] Active Metoprolol Tartrate 25 MG Oral Tablet (Lopressor)Indicat ions:Essential hypertension with goal blood pressure less than 140/90,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 TAKE 1 TABLET BY MOUTH TWICE DAILY 180 Tablet 1 03/30/2023 Active Warfarin Sodium 5 MG Oral Tablet (Jantoven)Indicati ons:Coronary artery disease involving kaw coronary artery of kaw heart without angina pectoris,S/P MVR (mitral valve replacement) TAKE ONE TABLET BY MOUTH DAILY or as directed by coag clinic 90 Tablet 3 03/30/2023 Active Famotidine 20 MG Oral Tablet (Pepcid) TAKE ONE TABLET BY MOUTH IN THE MORNING AND ONE BEFORE BEDTIME 180 Tablet 3 04/03/2023 Active Additional Information Patient not taking.Reported on 05/21/2023 Loratadine 10 MG Oral Tablet (Claritin)Indicati ons:Acute otitis media, left Take 1 Tablet by mouth in the morning. 0 05/21/2023 Active predniSONE 10 MG Oral Tablet (Deltasone)Indicat ions:Acute otitis media, left,Fullness in ear, bilateral,Decrease d hearing of both ears Take 4 tabs for 2 days, 3 tabs for 2 days, 2 tabs for 2 days 1 tab for 2 days Do not start before May 22, 2023. 20 Tablet 0 05/22/2023 Active Cefdinir 300 MG Oral Capsule (Omnicef)Indicatio ns:Acute otitis media, left Take 1 Capsule by mouth in the morning and 1 Capsule before bedtime. Do all this for 10 days. For 10 days.. 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 0 10/03/2016 Overview: ICD-10 update of inactive term S/P MVR (mitral valve replacement) 09/28/2016 Overview: Bioprosthetic 29mm epic valve Coronary artery disease invo lving kaw coronary artery of kaw heart without angina pectoris 09/12/2016 Overview: 80% [...] mRNA, LNP-s, No Pre serve, 2-Dose Series (Isotera) 08/27/2021,09/22/2020,09/01/2020 Hepatitis B, 20+ yrs 09/12/2016 Pneumococcal [...] encounter Miscellaneous Notes * Addendum Note - Sven Segal MD - 06/12/2023 3:58 PM ESTAddended by: SVEN SEGAL on: 06/12/2023 03:58 PM Modules accepted: Orders * Telephone Encounter - Linwood Bacon CMA - 05/31/2023 4:26 PM EST Patient's [...] EST Anticoagulation Pharmacy Call Center WB [address] [facility] [place] [address] [facility], [facility] [address] [facility] [place] [address] 08/10/2023 9:00 AM EST Office Visit Cardiology, [facility] [place] [address] Jayda Segura PA-C [address] [place] [address] 08/30/2023 10:00 AM EST Office Visit General Internal Medicine [facility] [place] [address] [place] [address] Sven Segal MD 200 [facility] [place] [address] Scheduled Orders Name Type Priority Associated Diagnoses Orde r Schedule FECAL OCCULT BLOOD, EIA Lab Routine Iron deficiency anemia, unspecified iron deficiency anemia type Expected: 06/12/2023, Expires: 06/12/2024 Scheduled Procedures Name Priority Associated Diagnoses Date/Ti [...] Additional history exists CKD PHOS USE SMARTSET 27578 05/21/2024 110 12/2022, 09/27/2021, 08/20/2020, Additional history exists Albumin/Creatinine Ratio 05/25/20242 023, 08/20/2020, 02/10/2020, Additional history exists CKD HGB USE SMARTSET 78201 06/12/202406/12, 06/12/2023, 05/29/2023, Additional history exists DTaP,Tdap,and [...] this encounter Medical Devices Implanted Type Area Director Revenue Device Identifier Shelf Expiration Date Model / Serial / Lot Shaun Harrell [id number] - [id number] Implanted:Qty: 4 on 09/22/2016 by Dejon Carlos MD at OR [facility] N/A: Sternum JNJ : [employer] 06/14/2021 [id number] / / [id number] documented as of this encounter Results * (ABNORMAL) COMPREHENSIVE METABOLIC PANEL (06/12/2023 8:00 [...] mmol/L 06/12/2023 12:07 PM EST [facility] [place] [address] Anion Gap 9 7 - 15 [...] 8:00 AM EST 06/12/2023 11:29 AM EST Sven Segal MD LAB BLOOD ORDERA BLES [facility] [place] [address] [facility] [place] [address] documented in this encounter Visit Diagnoses Diagnosis Elevated LFTs- Primary Other abnormal blood chemistry Abnormal white blood cell (WBC) Iron deficiency anemia, unspecified iron deficiency anemia type documented in this encounter Advance Directives Latest Code Status on File Code Status Date Activated Date Inactivated Comments Full Code 09/22/2016 12:20 PM 09/28/2016 3:42 PM This order reflects the patients wishes and were consensually agreed upon. Question Answer Comments Discussion of Advance Directives occurred with: Patient Does the patient have a Living Will? No Does the patient have Health Care Power of Control Clerk Subassembly? No Care Teams Schedule Announcer Relationship Specialty Start Date End Date Sven Segal MD [address] [place] [address] PCP - General Internal Medicine 08/08/19 documented as of this encounter
--- OUTSIDE RECORDS SUMMARY | 2023-07-28 21:45 | External Medical Summary ---
Author Name Unknown Address Unknown Organization [id number]:[facility] [address] [place] [address] Laboratory Report Ordering Provider Test Date Status MIGUEL MACHUCA 06/12/2023 08:00:00 Final Observation Date Value Abnormality Reference (Units ) Status SYNC LEUKOCYTES IN BLOOD BY AUTOMATED COUNT 06/12/2023 08:00:00 9.02 4.00-10.80 (K/uL) Final Segs 06/12/2023 08:00:00 48.8 40.0-75.0 (%) Final Lymphs % 06/12/2023 08:00:00 33.3 18.0-42.0 (%) Final Monos 06/12/2023 08:00:00 11.0 1.0-11.0 (%) Final Eosinophils 06/12/2023 08:00:00 6.0 0.0-6.0 (%) Final Basos 06/12/2023 08:00:00 0.9 0.0-2.0 (%) Final Absolute Segs 06/12/2023 08:00:00 4.41 1.80-7.70 (K/uL) Final Lymphs, absolute 06/12/2023 08:00:00 3.00 1.00-4.80 (K/ul) Final Monos, Abs 06/12/2023 08:00:00 0.99 0.00-1.10 (K/uL) Final Eos, Abs 06/12/2023 08:00:00 0.54 0.00-0.70 (K/uL) Final Basos, Abs 06/12/2023 08:00:00 0.08 0.00-0.20 (K/uL) Final Performing Location [facility] [place] [address]
--- OUTSIDE RECORDS SUMMARY | 2023-07-28 21:45 | External Medical Summary ---
Author Name Unknown Address Unknown Organization [id number]:[facility] [address] [place] [address] Laboratory Report Ordering Provider Test Date Status DANISHA LOPEZ 06/12/2023 08:00:00 Final Standing order for pt/inr.
Please draw pt/inr every 1 to 4 weeks as requested
Results to [facility]

Warfarin Therapy
INR: 2.0-3.0 conventional anticoagulation
INR: 2.5-3.5 high intensity anticoagulation Observation Date Value Abnormality Reference (Units ) Status PT 06/12/2023 08:00:00 21.8 Above high normal 11 .6-15.2 (seconds) Final INR 06/12/2023 08:00:00 1.9 Above high normal 0. 8-1.2 Final Performing Location [facility] [address] [place] [address]
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
--- OUTSIDE RECORDS SUMMARY | 2023-07-28 21:46 | External Medical Summary ---
Author Name Unknown Address Unknown Organization K09:[facility] [address] [place] [address] Laboratory Report Ordering Provider Test Date Status MIGUEL MACHUCA 05/21/2023 15:16:57 Final Observation Date Value Abnormality Reference (Units ) Status BUN 05/21/2023 15:16:57 22 Above high normal 6-20 (mg/dL) Final Creatinine 05/21/2023 15:16:57 1.2 Above high normal 0.5-1.0 (mg/dL) Final Glomerular filtration rate/1.73 sq M.predicted [Volume Rate/Area] in Serum, Plasma or Blood by Creatinine-based formula (CKD-EPI) 05/21/2023 15:16:57 47 Below low normal >=60 (mL/min) Final eGFR is calculated based on the CKD-EPI 2020 equation SODIUM 05/21/2023 15:16:57 142 135-146 (m mol/L) Final Potassium 05/21/2023 15:16:57 4.1 3.5-5.1 (m mol/L) Final Cl 05/21/2023 15:16:57 105 98-107 (mm ol/L) Final CO2 05/21/2023 15:16:57 26 22-32 (mmo l/L) Final Anion gap 05/21/2023 15:16:57 11 7-15 (mmol /L) Final Glucose 05/21/2023 15:16:57 114 70-120 (mg /dL) Final Albumin 05/21/2023 15:16:57 3.8 3.8-5.0 (g /dL) Final AST (Aspartate aminotransferase) 05/21/2023 15:16:57 45 Above high normal 10-35 (U/L) Final Alk Phos 05/21/2023 15:16:57 102 35-130 (U/ L) Final Bilirubin, Total 05/21/2023 15:16:57 0.3 <=1 .2 (mg/dL) Final Calcium 05/21/2023 15:16:57 9.3 8.4-10.2 ( mg/dL) Final Protein 05/21/2023 15:16:57 6.9 6.0-8.3 (g /dL) Final ALT (Alanine aminotransferase) 05/21/2023 15:16:57 60 Above high normal 10-35 (U/L) Final Performing Location [facility] [address] [place] [address]
--- OUTSIDE RECORDS SUMMARY | 2023-07-28 21:46 | External Medical Summary ---
Author Name Unknown Address Unknown Organization K09:[facility] [place] [address] Laboratory Report Ordering Provider Test Date Status MIGUEL MACHUCA 05/21/2023 15:16:57 Final Observation Date Value Abnormality Reference (Units ) Status WBC, Total 05/21/2023 15:16:57 12.33 Above high normal 4 .00-10.80 (K/uL) Final RBC 05/21/2023 15:16:57 4.09 3.85-5.15 (M/uL) Final Hemoglobin 05/21/2023 15:16:57 11.9 Below low normal 12 .0-15.3 (g/dL) Final HCT 05/21/2023 15:16:57 36.6 36.0-45.2 (%) Final MCV 05/21/2023 15:16:57 89.5 81.5-97.5 (fL) Final MCH 05/21/2023 15:16:57 29.1 27.0-34.0 (pg) Final MCHC 05/21/2023 15:16:57 32.5 32.0-36.0 (g/dL) Final RDW 05/21/2023 15:16:57 15.4 11.5-15.5 (%) Final Platelets 05/21/2023 15:16:57 303 140-400 (K /uL) Final MPV 05/21/2023 15:16:57 9.6 6.6-11.1 ( fL) Final Performing Location [facility] [place] [address]
--- OUTSIDE RECORDS SUMMARY | 2023-07-28 21:46 | External Medical Summary ---
Author Name Unknown Address Unknown Organization K09:[facility] [place] [place] [address] [place] [address] Laboratory Report Ordering Provider Test Date Status MIGUEL MACHUCA 05/21/2023 15:16:57 Final Observation Date Value Abnormality Reference (Units ) Status SYNC LEUKOCYTES IN BLOOD BY AUTOMATED COUNT 05/21/2023 15:16:57 12.33 Above high normal 4.00-10.80 (K/uL) Final Segs 05/21/2023 15:16:57 48.7 40.0-75.0 (%) Final Lymphs % 05/21/2023 15:16:57 35.4 18.0-42.0 (%) Final Monos 05/21/2023 15:16:57 11.3 Above high normal 1.0-11.0 (%) Final Eosinophils 05/21/2023 15:16:57 4.1 0.0-6.0 (%) Final Basos 05/21/2023 15:16:57 0.5 0.0-2.0 (%) Final Absolute Segs 05/21/2023 15:16:57 6.02 1.80-7.70 (K/uL) Final Lymphs, absolute 05/21/2023 15:16:57 4.36 1.00-4.80 (K/ul) Final Monos, Abs 05/21/2023 15:16:57 1.39 Above high normal 0.00-1.10 (K/uL) Final Eos, Abs 05/21/2023 15:16:57 0.50 0.00-0.70 (K/uL) Final Basos, Abs 05/21/2023 15:16:57 0.06 0.00-0.20 (K/uL) Final Performing Location [facility] [address] [place] [address]
--- OUTSIDE RECORDS SUMMARY | 2023-07-28 21:46 | External Medical Summary | Summary of Care ---
Author Name Unknown Organization [facility] Address [address] [place] [address] Phone [phone] Care Team Providers Care Drawing Machine Operator Name Role Phone Magy Segal MD Primary Care Provider + Reason for Visit * Reason Comments Outpatient Testing Encounter Details Date Type Department Care Team (Late st Contact Info) Description 05/25/2023 9:50 AM EST Laboratory Laboratory, [address] [address] [address], Specimen Drop Off [address] [address] Arrived Allergies Active Allergy Reactions Criticality Noted Date Comments Haseeb Inhibitors Cough 04/04/2010 documented as of this encounter (statuses as of 05/25/2023) Medications Medication Sig Dispensed Refills Start Date End Date Status aspirin 81 MG chewable tablet Take 1 Tab by mouth daily. 30 Tab 3 09/28/2016 Active OneTouch Delica Lancets 33GIndications:Type 2 diabetes mellitus with hemoglobin A1c goal of less than 7.5% ([facility]) Test blood sugar once daily 100 Each 3 06/15/2020 Active OneTouch Verio In Vitro Strip (Glucose Blood)Indications:T ype 2 diabetes mellitus with hemoglobin A1c goal of less than 7.5% ([facility]) Test blood sugar once daily 100 Strip 3 07/21/2020 Active Fluticasone Propionate 50 MCG/ACT Nasal SuspensionIndicatio ns:Bronchitis, complicated Administer into each nostril 2 Sprays in the morning. 9.9 mL 2 08/30/2021 Active Additional Information Patient taking differently:2 [place] Each Nostril Daily(AM),As needed, Informant: Child, Reported [...] Oral Tablet (Jantoven)Indicatio ns:Coronary artery disease involving ione coronary artery of ione heart without angina pectoris,S/P MVR (mitral valve [...] as of this encounter (statuses as of 05/25/2023) Active Problems Problem Noted Date Diagnosed Date [...] (NSTEMI) 07/20/2017 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 slimer current use of 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 therapy 0 10/03/2016 Overview: ICD-10 update of inactive term S/P MVR (mitral valve replacement) 09/28/2016 Overview: Bioprosthetic 29mm epic valve Coronary artery disease invo lving ione coronary artery of ione heart without angina pectoris 09/12/2016 Overview: 80% [...] as of this encounter (statuses as of 05/25/2023) Resolved Problems Problem Noted Date Diagnosed Date [...] MR 2006 SEPTAL CLOSURE ANOM NOS 01/18/2006 03/07/2009 documented as of this encounter (statuses as of 05/25/2023) Immunizations Name Administration Dates Next Due COVID-19 [...] Team (Late st Contact Info) Description 05/29/2023 8:30 AM EST Laboratory Lab Mobile Phlebotomy [facility] [address] [place] [address] Gm, [facility] Mobile Home Draw [address] [place] [address] 05/30/2023 6:00 AM EST Anticoagulation Pharmacy Call Center [phone] [facility] [place] [address] Ccps, [facility] [address] [facility] [address] 08/10/2023 9:00 AM EST Office Visit Cardiology, [facility] [address] [place] [address] Jayda Segura PA-C [address] [facility] [place] [address] 08/30/2023 10:00 AM EST Office Visit General Internal Medicine [facility] [address] [facility] [place] [address] Magy Segal MD [address] [facility] [place] [place] [address] Scheduled Procedures Name Priority Associated Diagnoses Date/Ti me COLONOSCOPY FLEXIBLE PROXIMA L DIAGNOSTIC Recall Family history of colorectal cancer Health Maintenance Due Date Last Done Comments Hepatitis B (2 of 3 - Risk 3-dose series) 10/10/2016 09/12/2016 Albumin/Creatinine Ratio 08/20/2021 021, 02/10/2020, 01/22/2018, Additional history exists *BISPHONATE OR OTHER ACCEPTABLE MEDICATION NEEDED FOR OSTEOPOROSIS (REFER TO SMARTSET #1146) 02/18/2022 Diabetic Eye Exam 05/27/2022 05/27/2021, , 01/30/2019, Additional history exists COVID-19 Vaccine ( season) 2023 08/27/2021, 09/22/2020, 09/01/2020 Influenza Vaccine (FLU shot) (#1) 2023 08/29/2022, 07/25/2021, 05/06/2020, Additional history exists Depression Screening 08/29/2023 08/29/2022 GFR 11/19/2023 05/21/2023, 08/16, 02/28/2022, Additional history exists HbA1c 11/19/2023 05/21/2023, 10/14, 08/29/2022, Additional history exists Diabetic Foot Exam 02/23/2024 02/22/2023, 0 02/16/2022, 01/04/2021, Additional history exists CKD HGB USE SMARTSET 30646 05/21/202405/21, 05/21/2023, 09/27/2021, Additional history exists CKD PHOS USE SMARTSET 03467 05/21/2024 11/0 12/2022, 09/27/2021, 08/20/2020, Additional history exists DTaP,Tdap,and Td Vaccines (3 [...] this encounter Medical Devices Implanted Type Area Ship Laborer Device Identifier Shelf Expiration Date Model / Serial / Lot Shaun Collado 6 [id number] - [id number] Implanted:Qty: 4 on 09/22/2016 by Dejon Carlos MD at OR [facility] [place] N/A: Sternum RELL : [employer] 06/14/2021 [id number] / / [id number] documented as of this encounter Advance Directives [...] the patient have Health Care Power of Tractor Mechanic Apprentice? No Care Teams Drawing Machine Operator Relationship Specialty Start Date End Date Magy Segal MD [address] [facility] [place] [place] [address] PCP - General Internal Medicine 08/08/19 documented as of this encounter
--- OUTSIDE RECORDS SUMMARY | 2023-07-28 21:46 | External Medical Summary ---
Author Name Unknown Address Unknown Organization K01:LABORATORY [facility] - [address] [facility] [address] Laboratory Report Ordering Provider Test Date Status DANISHA LOPEZ 05/01/2023 12:47:49 Final Standing order for pt/inr.
Please draw pt/inr every 1 to 4 weeks as requested
Results to [facility]

Warfarin Therapy
INR: 2.0-3.0 conventional anticoagulation
INR: 2.5-3.5 high intensity anticoagulation Observation Date Value Abnormality Reference (Units ) Status PT 05/01/2023 12:47:49 17.5 Above high normal 11 .6-15.2 (seconds) Final INR 05/01/2023 12:47:49 1.4 Above high normal 0. 8-1.2 Final Performing Location LABORATORY [facility] [place] - [address] [place] [address]
--- OUTSIDE RECORDS SUMMARY | 2023-07-28 21:46 | External Medical Summary | Summary of Care ---
Author Name Unknown Organization [facility] Address [address] [place] [address] Phone [phone] Care Team Providers Care Production Machine Shop Supervisor Name Role Phone Magy Segal MD Primary Care Provider + Reason for Visit * Reason Comments Follow Up The pt stated she langley s been having ear congestion in her L ear with decreased hearing for approx 2 weeks. Pt's son stated the pt was recently sick. 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 30 Tab 3 7 Active OneTouch Delica Lancets 33GIndications:Typ e 2 diabetes mellitus with hemoglobin A1c goal of less than 7.5% (HCC) Test blood sugar once daily 100 Each 3 0 Active OneTouch Verio In Vitro Strip (Glucose Blood)Indications: Type 2 diabetes mellitus with hemoglobin A1c goal of less than 7.5% ([facility]) Test blood sugar once daily 100 Strip 3 1 Active Fluticasone Propionate 50 MCG/ACT Nasal SuspensionIndicati ons:Bronchitis, complicated Administer into each nostril 2 Sprays in the morning. 9.9 mL 2 2 Active Additional Information Patient taking differently:2 [place] Each Nostril Daily(AM),As needed, Informant: Child, Reported on 08/29/2022 amLODIPine Besylate 2.5 MG Oral Tablet (Norvasc) TAKE ONE TABLET BY MOUTH DAILY 90 Tablet 3 2 Active Rosuvastatin Calcium 20 MG Oral Tablet (Crestor) TAKE ONE TABLET BY MOUTH DAILY 90 Tablet 3 2 Active Losartan Potassium 50 MG Oral Tablet (Cozaar) TAKE ONE AND ONE-HALF TABLET BY MOUTH DAILY 135 Tablet 1 3 Active glipiZIDE 5 MG Oral Tablet (Glucotrol) Take 1 Tablet by mouth in the morning. 30 minutes before a meal. 30 Tablet 5 3 Active Metoprolol Tartrate 25 MG Oral Tablet (Lopressor)Indicat ions:Essential hypertension with goal blood pressure less than 140/90,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 TAKE 1 TABLET BY MOUTH TWICE DAILY 180 Tablet 1 3 Active Warfarin Sodium 5 MG Oral Tablet (Jantoven)Indicati ons:Coronary artery disease involving [place] coronary artery of [place] heart without angina pectoris,S/P MVR (mitral valve replacement) TAKE ONE TABLET BY MOUTH DAILY or as directed by coag clinic 90 Tablet 3 3 Active Famotidine 20 MG Oral Tablet (Pepcid) TAKE ONE TABLET BY MOUTH IN THE MORNING AND ONE BEFORE BEDTIME 180 Tablet 3 3 Active Additional Information Patient not taking.Reported on 05/21/2023 Cefdinir 300 MG Oral Capsule (Omnicef)Indicatio ns:Acute otitis media, left Take 1 Capsule by mouth in the morning and 1 Capsule before bedtime. Do all this for 10 days. For 10 days.. 20 Capsule 0 3 05/31/20 23 Active Loratadine 10 MG Oral Tablet (Claritin)Indicati ons:Acute otitis media, left Take 1 Tablet by mouth in the morning. 0 3 Active predniSONE 10 MG Oral Tablet (Deltasone)Indicat ions:Acute otitis media, left,Fullness in ear, bilateral,Decrease d hearing of both ears Take 4 tabs for 2 days, 3 tabs for 2 days, 2 tabs for 2 days 1 tab for 2 days Do not start before May 22, 2023. 20 Tablet 0 3 Active Blood Glucose Monitoring Suppl (Plugaround) w/Device KITIndications:Typ e 2 diabetes mellitus with hemoglobin A1c goal of less than 7.5% ([facility]) Ck FS daily E11.9 1 Kit 0 9 05/21/20 23 Discontinued Zoster Vac Recomb Adjuvanted 50 MCG/0.5ML Intramuscular Suspension Reconstituted (Shingrix) Inject 0.5 mL into a large muscle now and repeat dose in 60 to 180 days 1 Each 1 3 05/21/20 23 Discontinued documented as of this encounter (statuses as of 05/21/2023) Active Problems Problem Noted Date Diagnosed Date [...] (NSTEMI) 07/20/2017 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 long-term current use of 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 therapy 0 10/03/2016 Overview: ICD-10 update of inactive term S/P MVR (mitral valve replacement) 09/28/2016 Overview: Bioprosthetic 29mm epic valve Coronary artery disease invo lving [place] coronary artery of [place] heart without angina pectoris 09/12/2016 Overview: 80% [...] as of this encounter (statuses as of 05/21/2023) Resolved Problems Problem Noted Date Diagnosed Date [...] as of this encounter (statuses as of 05/21/2023) Immunizations Name Administration Dates Next Due COVID-19 mRNA, LNP-s, No Pre serve, 2-Dose Series ([employer]) 08/27/2021,09/22/2020,09/01/2020 Hepatitis B, 20+ yrs 09/12/2016 Pneumococcal [...] on file documented as of this encounter Last Filed Vital Signs Vital Sign Reading Time Taken Comments Blood Pressure 120/66 05/21/2023 2:26 PM EST Pulse 73 05/21/2023 2:26 PM EST Temperature 35.9 C (96.7 F) 05/21/2023 2:26 PM ES T Respiratory Rate - - Oxygen Saturation 97% 05/21/2023 2:26 PM EST Inhaled Oxygen Concentration - - Weight 59 kg (130 lb 1.6 oz) 05/21/2023 2:26 PM EST Height - - Body Mass Index 24.58 08/29/2022 12:52 PM EST documented in this encounter Functional Status Functional Status Response [...] as of this encounter Progress Notes * Michelle Kim MD - 05/21/2023 2:46 PM EST SUBJECTIVE: Ya Dejesus is a 82 year old female. Chief Complaint Patient presents with Follow Up The pt stated she has been having ear congestion in her L ear with decreased hearing for approx 2 weeks. Pt's son stated the pt was recently sick. HPI: patient presents today accompanied by her son with symptoms of decreased hearing and fullness of both ears for the last week. She had cold symptoms about 2 weeks ago, did not have any high fever, now has fullness in both ears, left ear has been hurting her, cough just slightly raspy, not able to bring up any phlegm. No sinus pressure or pain. Denies any significant runny nose now or sore throat Has been taking Robitussin without much improvement, currently not on Flonase.. No history of recurrent sinus infections. States was started on a new medication for diabetes at last visit with , chart reviewed, labs are due Last CMP review Hemoglobin AIC Results: Lab Results Component Value Date/Time HEMOGLOBIN A1C - [facility] 7.8 (H) 10/23/2022 07:42 AM HEMOGLOBIN A1C - [facility] 7.5 (H) 08/29/2022 01:43 PM HEMOGLOBIN A1C - [facility] 6.4 (H) 09/27/2021 07:21 AM HEMOGLOBIN A1C - [facility] 6.4 (H) 02/09/2020 09:14 AM HEMOGLOBIN A1C - [facility] 6.8 (H) 07/03/2019 01:16 PM HEMOGLOBIN A1C - [facility] 9.3 (H) 01/24/2019 11:11 AM Results for orders placed or performed in visit on 05/15/23 PT INR Result Value Ref Range Prothrombin Time 30.6 (H) 11.6 - 15.2 seconds INR 2.9 (H) 0.8 - 1.2 *Note: Due to a large number of results and/or encounters for the requested time period, some results have not been displayed. A complete set of results can be found in Results Review. Patient Active Problem List Diagnosis Code Family history of colon cancer Z80.0 hx of hypercalcemia on supplemnts, to be off calcium supp Dyslipidemia, goal LDL below 70 E78.5 ADVANCE DIRECTIVE INFORMATION Asymmetric septal hypertrophy ([facility]) I42.2 Kidney disease, chronic, stage III (GFR 30-59 ml/min) ([facility]) N18.30 Type 2 diabetes mellitus with hemoglobin A1c goal of less than 7.5% (HCC) E11.9 Essential hypertension with goal blood pressure less than 140/90 I10 Coronary artery disease involving bishop [place] coronary artery of [place] heart without angina pectoris I25.10 Pulmonary hypertension ([facility]) I27.20 S/P MVR (mitral valve replacement) 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 Z79.01 S/P CABG x 2 Z95.1 History of non-ST elevation myocardial infarction (NSTEMI) I25.2 Hx of actinic keratosis Z87.2 HTN, goal below 140/90 I10 High risk for fracture due to osteoporosis by DEXA scan M81.0 Aortic atherosclerosis ([facility]) I70.0 Risk and functional assessment Z13.9 Status post insertion of drug eluting coronary artery stent Z95.5 Partial idiopathic epilepsy with seizures of localized onset, not intractable, with status epilepticus ([facility]) G40.001 Bioprosthetic mitral valve replacement, current hospitalization Z95.3 Type 2 diabetes mellitus with stage 3a chronic kidney disease ([facility]) E11.22, N18.31 Diabetes mellitus due to underlying condition with stage 3a chronic kidney disease ([facility]) E08.22, N18.31 PSVT (paroxysmal supraventricular tachycardia) I47.10 Chronic kidney disease, stage 3a ([facility]) N18.31 Diabetes mellitus due to underlying condition with stage 3 chronic kidney disease, without long-term current use of insulin ([facility]) E08.22, N18.30 Bronchitis, complicated J40 Iron deficiency anemia D50.9 Current Outpatient Medications Medication Sig Dispense Refill aspirin 81 MG chewable tablet Take 1 Tab by mouth daily. 30 Tab 3 OneTouch Delica Lancets 33G Test blood sugar once daily 100 Each 3 OneTouch Verio In Vitro Strip (Glucose Blood) Test blood sugar once daily 100 Strip 3 Fluticasone Propionate 50 MCG/ACT Nasal Suspension Administer into each nostril 2 Sprays in the morning. (Patient taking differently: Administer 2 Sprays into each nostril in the morning. As needed.)9.9 mL 2 amLODIPine Besylate 2.5 MG Oral Tablet (Norvasc) TAKE ONE TABLET BY MOUTH DAILY 90 Tablet 3 Rosuvastatin Calcium 20 MG Oral Tablet (Crestor) TAKE ONE TABLET BY MOUTH DAILY 90 Tablet 3 Losartan Potassium 50 MG Oral Tablet (Cozaar) TAKE ONE AND ONE-HALF TABLET BY MOUTH DAILY 135 Tablet 1 glipiZIDE 5 MG Oral Tablet (Glucotrol) Take 1 Tablet by mouth in the morning. 30 minutes before a meal. 30 Tablet 5 Metoprolol Tartrate 25 MG Oral Tablet (Lopressor) TAKE 1 TABLET BY MOUTH TWICE DAILY 180 Tablet 1 Warfarin Sodium 5 MG Oral Tablet (Jantoven) TAKE ONE TABLET BY MOUTH DAILY or as directed by coag clinic 90 Tablet 3 Famotidine 20 MG Oral Tablet (Pepcid) TAKE ONE TABLET BY MOUTH IN THE MORNING AND ONE BEFORE BEDTIME (Patient not taking: Reported on 05/21/2023) 180 Tablet 3 No current facility-administered medications for this visit. Review of patient's allergies indicates: Allergen Reactions Haseeb Inhibitors Cough OBJECTIVE: BP 120/66 | Pulse 73 | Temp 35.9 C (96.7 F) | Wt 59 kg (130 lb 1.6 oz) | LMP 10/15/1975 | SpO2 97% | BMI 24.58 kg/m | BSA 1.59 m PHYSICAL EXAM: General: alert, healthy, no distress, well nourished and well developed Head: Normocephalic,atraumatic. Eye Exam: Conjunctiva are pink and non-injected, sclera clear Ears: External ears normal, Canal scant cerumen on the right, right TM partially visualized looks normal, left slightly erythematous and appears full Nose: no purulent discharge, clear rhinorrhea, + musosal edema, + mucosal erythema,+ max and frontal sinus tenderness Oropharynx- +erythema sites PND left >rt,no cobblestoning pharynx. Neck: supple, thyroid normal size, non-tender, without nodularity Lymph: No palpable lymphadenopathy Heart: regular rhythm and rate , no murmurs. Lungs: lungs clear to auscultation ASSESSMENT/PLAN: Acute otitis media, left (Primary) - Cefdinir 300 MG Oral Capsule (Omnicef); Take 1 Capsule by mouth in the morning and 1 Capsule before bedtime. Do all this for 10 days. For 10 days.. - Loratadine 10 MG Oral Tablet (Claritin); Take 1 Tablet by mouth in the morning. - predniSONE 10 MG Oral Tablet (Deltasone); Take 4 tabs for 2 days, 3 tabs for 2 days, 2 tabs for 2days 1 tab for 2 days Do not start before May 22, 2023. Inc intake fluids. Advised to use otc nasal saline spray/drops q1-2 hrs while awake as needed. Advised warm saline gargles qid prn for relief. The potential side effects of this medication have been discussed with the patient. Call if any significant problems with these are experienced. HTN, goal below 140/90 Type 2 diabetes mellitus with hemoglobin A1c goal of less than 8.0% ([facility]) Fullness in ear, bilateral - predniSONE 10 MG Oral Tablet (Deltasone); Take 4 tabs for 2 days, 3 tabs for 2 days, 2 tabs for 2days 1 tab for 2 days Do not start before May 22, 2023. Decreased hearing of both ears - predniSONE 10 MG Oral Tablet (Deltasone); Take 4 tabs for 2 days, 3 tabs for 2 days, 2 tabs for 2days 1 tab for 2 days Do not start before May 22, 2023. 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 | For: Labs Today (This note was completed using the dictation program Fluency Direct. As such, there may be misspellings, word substitutions, or other variations that should not change the essence of the clinical content of this encounter note. If there is need for further clarification, please direct questions to the provider listed above.) Patient and / caregiver verbalize understanding of above instructions and agrees with plan of care. Michelle Kim MD 05/21/2023 documented in this encounter Nursing Notes * Rubén Esquivel LPN - 05/21/2023 2:26 PM EST Chief Complaint Patient presents with Follow Up The pt stated she has been having ear congestion in her L ear with decreased hearing for approx 2 weeks. Pt's son stated the pt was recently sick. documented in this encounter Plan of Treatment Upcoming Encounters Date Type Department Care Team (Late st Contact Info) Description 05/29/2023 8:30 AM EST Laboratory Lab Mobile Phlebotomy [facility] [address] [facility] [place] [address] [facility] Mobile Home Draw [address] [facility] [place] [address] 05/30/2023 6:00 AM EST Anticoagulation Pharmacy Call Center [phone] [place] [address] [facility] [address] [facility] [place] [address] 08/10/2023 9:00 AM EST Office Visit Cardiology, [facility] [address] [place] [address] Jayda Segura, [place] [address] [place] [address] 08/30/2023 10:00 AM EST Office Visit General Internal Medicine [facility] [address] [facility] [place] [address] Magy Segal MD [address] [facility] [place] [address] Scheduled Procedures Name Priority Associated Diagnoses Date/Ti [...] Additional history exists CKD HGB USE SMARTSET 16579 09/27/202209/27, 09/27/2021, 05/26/2021, Additional history exists CKD PHOS USE SMARTSET 72194 09/27/202209/13, 08/20/2020, 07/03/2019, Additional history exists GFR 02/26/2023 08/29/2022, 02/13, 09/27/2021, Additional history exists COVID-19 Vaccine ( season) [...] this encounter Medical Devices Implanted Type Area Enterprise Account Executive Device Identifier Shelf Expiration Date Model / Serial / Lot Sut Steel 6 [id number] - [id number] Implanted:Qty: 4 on 09/22/2016 by Dejon Carlos MD at OR [facility] N/A: Sternum JN[place] : [employer] 06/14/2021 [id number] / / [id number] documented as of this encounter Visit Diagnoses Diagnosis Acute otitis media, left- Primary Unspecified otitis media HTN, goal below 140/90 Unspecified essential hypertension Type 2 diabetes mellitus with hemoglobin A1c goal of less than 8.0% ([facility]) Fullness in ear, bilateral Decreased hearing of both ears long-term current use of 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 therapy S/P MVR (mitral valve replacement) Heart valve replaced by other means documented [...] the patient have Health Care Power of Kidney Trimmer? No Care Teams Production Machine Shop Supervisor Relationship Specialty Start Date End Date Magy Segal MD [address] [place] [address] PCP - General Internal Medicine 08/08/19 documented as of this encounter"
--- OUTSIDE RECORDS SUMMARY | 2023-07-28 21:46 | External Medical Summary ---
Author Name Unknown Address Unknown Organization K0G[facility] [address] [place] [address] Laboratory Report Ordering Provider Test Date Status MIGUEL MACHUCA 05/29/2023 08:23:00 Final Observation Date Value Abnormality Reference (Units ) Status SYNC LEUKOCYTES IN BLOOD BY AUTOMATED COUNT 05/29/2023 08:23:00 18.53 Above high normal 4.00-10.80 (K/uL) Final Segs 05/29/2023 08:23:00 51.8 40.0-75.0 (%) Final Lymphs % 05/29/2023 08:23:00 37.5 18.0-42.0 (%) Final Monos 05/29/2023 08:23:00 10.3 1.0-11.0 (%) Final Eosinophils 05/29/2023 08:23:00 0.2 0.0-6.0 (%) Final Basos 05/29/2023 08:23:00 0.2 0.0-2.0 (%) Final Absolute Segs 05/29/2023 08:23:00 9.60 Above high normal 1.80-7.70 (K/uL) Final Lymphs, absolute 05/29/2023 08:23:00 6.95 Above high normal 1.00-4.80 (K/ul) Final Monos, Abs 05/29/2023 08:23:00 1.91 Above high normal 0.00-1.10 (K/uL) Final Eos, Abs 05/29/2023 08:23:00 0.04 0.00-0.70 (K/uL) Final Basos, Abs 05/29/2023 08:23:00 0.03 0.00-0.20 (K/uL) Final Performing Location LABORATORY [facility] [place] [address] [place] [address]
--- OUTSIDE RECORDS SUMMARY | 2023-07-28 21:46 | External Medical Summary | Summary of Care ---
Author Name Unknown Organization [facility] Address [address] [facility] [place] [place] [address] Phone [phone] Care Team Providers Care Doorshaker Name Role Phone Magy Segal MD Primary Care Provider + Reason for Visit * Reason Comments Outpatient Testing Encounter Details Date Type Department Care Team (Late st Contact Info) Description 05/21/2023 3:10 PM EST Laboratory Laboratory [facility] [address] [place] [address] [facility] Lab Scenery [address] [place] [address] Type 2 diabetes mellitus with hemoglobin A1c goal of less than 7.5% ([facility]); Screening for deficiency anemia; Stage 3a chronic kidney disease ([facility]); Dyslipidemia, goal LDL below 70 Allergies Active Allergy Reactions Criticality Noted Date [...] 08/30/2021 Active Additional Information Patient taking differently:2 [place] Each Nostril Daily(AM),As needed, Informant: Child, Reported [...] Oral Tablet (Jantoven)Indicatio ns:Coronary artery disease involving [place] coronary artery of [place] heart without angina pectoris,S/P MVR (mitral valve [...] (NSTEMI) 07/20/2017 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 0 10/03/2016 Overview: ICD-10 update of inactive term S/P MVR (mitral valve replacement) 09/28/2016 Overview: Bioprosthetic 29mm epic valve Coronary artery disease invo lving [place] coronary artery of [place] heart without angina pectoris 09/12/2016 Overview: 80% [...] Laboratory Lab [facility] [address] [place] [address] Gm, [facility] Mobile Home Draw [address] [place] [address] 05/30/2023 6:00 AM EST Anticoagulation Pharmacy Call Center 58-60 [facility] [place] [address] [facility] 58 60 [facility] [place] [address] 08/10/2023 9:00 AM EST Office Visit Cardiology, [facility] [address] [place] [address] Jayda Segura, PAXavi [address] [place] [address] 08/30/2023 10:00 AM EST Office Visit General Internal Medicine [facility] [address] [place] [address] Magy Segal MD 200 [facility] [place], [place] [address] Pending Results Name Type Priority Associated Diagnoses Date /Time HEMOGLOBIN A1C Lab Routine Type 2 diabetes mellitus with hemoglobin A1c goal of less than 7.5% ([facility]) 05/21/2023 3:16 PM EST COMPREHENSIVE METABOLIC PANEL Lab Routine Type 2 diabetes mellitus with hemoglobin A1c goal of less than 7.5% ([facility]) 05/21/2023 3:16 PM EST PHOSPHORUS Lab Routine Stage 3a chronic kidney disease (HCC) 05/21/2023 3:16 PM EST LDL CHOLESTEROL (DIRECT MEASURE) Lab Routine Dyslipidemia, goal LDL below 70 05/21/2023 3:16 PM EST Scheduled Procedures Name Priority Associated Diagnoses [...] 05/27/2021, , 01/30/2019, Additional history exists CKD PHOS USE SMARTSET 76178 09/27/202209/13, 08/20/2020, 07/03/2019, Additional history exists GFR 02/26/2023 08/29/2022, 02/13, 09/27/2021, Additional history exists COVID-19 Vaccine ( season) 2023 08/27/2021, 09/22/2020, 09/01/2020 Influenza Vaccine (FLU shot) (#1) 2023 08/29/2022, 07/25/2021, 05/06/2020, Additional history exists HbA1c 04/24/2023 10/23/2022, 08/16, 09/27/2021, Additional history exists Depression Screening 08/29/2023 08/29/2022 Diabetic Foot Exam 02/23/2024 02/22/2023, 0 02/16/2022, 01/04/2021, Additional history exists CKD HGB USE SMARTSET 87581 05/21/202405/21, 05/21/2023, 09/27/2021, Additional history exists DTaP,Tdap,and Td Vaccines (3 [...] this encounter Medical Devices Implanted Type Area Graduation Coach Device Identifier Shelf Expiration Date Model / Serial / Lot Shaun Collado 6 [id number] - [id number] Implanted:Qty: 4 on 09/22/2016 by Dejon Carlos MD [place] [facility] [place]/A: Sternum JNJ : [employer] 06/14/2021 [id number] / / [id number] documented as of this encounter Procedures Procedure Name Priority Date/Time Associated Diagnosis Comments DIFFERENTIAL, AUTOMATED Routine 05/21/2023 3:16 PM EST Screening for deficiency anemia CBC Routine 05/21/2023 3:16 PM EST Screening for deficiency anemia CBC Routine 05/21/2023 3:16 PM EST Screening for deficiency anemia documented in this encounter Results * (ABNORMAL) DIFFERENTIAL, AUTOMATED (05/21/2023 3:16 PM EST) WBC 12.33(H) 4.00 - 10.80 K/uL 05/21/2023 3:23 PM EST [facility] 56-02 Neutrophils % 48.7 40.0 - 75.0 % 05/21/2023 3:23 PM EST [facility] 56-02 Lymphocytes % 35.4 18.0 - 42.0 % 05/21/2023 3:23 PM EST [facility] 56-02 Monocytes % 11.3(H) 1.0 - 11.0 % 05/21/2023 3:23 PM EST [facility] 56-02 Eosinophils % 4.1 0.0 - 6.0 % 05/21/2023 3:23 PM EST [facility] 56-02 Basophils % 0.5 0.0 - 2.0 % 05/21/2023 3:23 PM EST [facility] 56-02 Absolute Neutrophils 6.02 1.80 - 7.70 K/uL 05/21/2023 3:23 PM EST [facility] 56 Absolute Lymphocytes 4.36 1.00 - 4.80 K/ul 05/21/2023 3:23 PM [facility] 56 Absolute Monocytes 1.39(H) 0.00 - 1.10 K/uL 05/21/2023 3:23 PM EST [facility] 56 Absolute Eosinophils 0.50 0.00 - 0.70 K/uL 05/21/2023 3:23 PM EST [facility] 56 Absolute Basophils 0.06 0.00 - 0.20 K/uL 05/21/2023 3:23 PM [facility] 56 Blood Venous blood specimen / Unknown Venipuncture / Unknown 05/21/2023 3:16 PM EST 05/21/2023 3:16 PM EST Magy Segal MD LAB BLOOD ORDERA BLES Performing Organization Address City/State/[facility] Co de Phone Number [facility] [address] [place] [address] * (ABNORMAL) CBC (05/21/2023 3:16 PM EST) WBC 12.33(H) 4.00 - 10.80 K/uL 05/21/2023 3:23 PM [facility] 56 RBC 4.09 3.85 - 5.15 M/uL 05/21/2023 3:23 PM [facility] 56 HGB 11.9(L) 12.0 - 15.3 g/dL 05/21/2023 3:23 PM [facility] 56 HCT 36.6 36.0 - 45.2 % 05/21/2023 3:23 PM [facility] 56 MCV 89.5 81.5 - 97.5 fL 05/21/2023 3:23 PM [facility] 56 MCH 29.1 27.0 - 34.0 pg 05/21/2023 3:23 PM [facility] 56 MCHC 32.5 32.0 - 36.0 g/dL 05/21/2023 3:23 PM [facility] 56 RDW 15.4 11.5 - 15.5 % 05/21/2023 3:23 PM EST [facility] 56- PLT 303 140 - 400 K/uL 05/21/2023 3:23 PM EST [facility] 56- MPV 9.6 6.6 - 11.1 fL 05/21/2023 3:23 PM EST [facility] 56- Blood Venous blood specimen / Unknown Venipuncture / Unknown 05/21/2023 3:16 PM EST 05/21/2023 3:16 PM EST Magy Segal MD LAB BLOOD ORDERA BLES [facility] [address] documented in this encounter Visit Diagnoses Diagnosis Type 2 diabetes mellitus with hemoglobin A1c goal of less than 7.5% (HCC) Screening for deficiency anemia Screening for other and unspecified deficiency anemia Stage 3a chronic kidney disease (HCC) Dyslipidemia, goal LDL below 70 Other and unspecified hyperlipidemia documented in this [...] the patient have Health Care Power of Histologist? No Care Teams Doorshaker Relationship Specialty Start Date End Date Magy Segal MD 200 [facility] [place] [address] PCP - General Internal Medicine 08/08/19 documented as of this encounter
--- OUTSIDE RECORDS SUMMARY | 2023-07-28 21:46 | External Medical Summary ---
Author Name Unknown Address Unknown Organization K0G:[facility] [place] [address] [place] [address] Laboratory Report Ordering Provider Test Date Status MIGUEL MACHUCA 05/29/2023 08:23:00 Final Observation Date Value Abnormality Reference (Units ) Status WBC, Total 05/29/2023 08:23:00 18.53 Above high normal 4 .00-10.80 (K/uL) Final RBC 05/29/2023 08:23:00 4.29 3.85-5.15 (M/uL) Final Hemoglobin 05/29/2023 08:23:00 12.5 12.0-15.3 (g/dL) Final HCT 05/29/2023 08:23:00 38.4 36.0-45.2 (%) Final MCV 05/29/2023 08:23:00 89.5 81.5-97.5 (fL) Final MCH 05/29/2023 08:23:00 29.1 27.0-34.0 (pg) Final MCHC 05/29/2023 08:23:00 32.6 32.0-36.0 (g/dL) Final RDW 05/29/2023 08:23:00 15.7 11.5-15.5 (%) Final Platelets 05/29/2023 08:23:00 315 140-400 (K /uL) Final MPV 05/29/2023 08:23:00 11.1 6.6-11.1 ( fL) Final Performing Location [facility] [place] [address] [place] [address]
--- OUTSIDE RECORDS SUMMARY | 2023-07-28 21:46 | External Medical Summary | Summary of Care ---
Author Name Unknown Organization [facility] Address [address] [facility] [address] Phone [phone] Care Team Providers Care Ship Keeper Name Role Phone Magy Segal MD Primary Care Provider + Reason for Visit * Reason Comments Dosage Adjustment Via Phone (anticoag Cl inic) Encounter Details Date Type Department Care Team Description 05/01/2023 Anticoagulation Pharmacy Call Center [phone] [place] [address] [facility] 58 60 Public [facility] [place] [address] S/P MVR (mitral valve replacement)*; Bioprosthetic mitral valve replacement, current hospitalization Allergies Active Allergy Reactions Severity Noted Date Comments Haseeb Inhibitors Cough 04/04/2010 documented as of this encounter (statuses as of 05/01/2023) Medications Medication Sig Dispensed Refills Start Date End Date Status aspirin 81 MG chewable tablet Take 1 Tab by mouth daily. 30 Tab 3 09/28/2016 Active Blood Glucose Monitoring Suppl (ONETOUCH VERIO) w/Device KITIndications:Type 2 diabetes mellitus with hemoglobin A1c goal of less than 7.5% (HCC) Ck FS daily E11.9 1 Kit 0 02/26/2019 Active OneTouch Marcia Lancets 33GIndications:Type 2 diabetes mellitus with hemoglobin [...] Oral Tablet (Jantoven)Indication s:Coronary artery disease involving [place] coronary artery of [place] heart without angina pectoris,S/P MVR (mitral valve replacement) TAKE ONE TABLET BY MOUTH DAILY or as directed by coag clinic 90 Tablet 3 03/30/2023 Active Famotidine 20 MG Oral Tablet (Pepcid) TAKE ONE TABLET BY MOUTH IN THE MORNING AND ONE BEFORE BEDTIME 180 Tablet 3 04/03/2023 Active documented as of this encounter (statuses as of 05/01/2023) Active Problems Problem Noted Date Diabetes mellitus [...] 07/20/2017 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 10/03/2016 Overview: ICD-10 update of inactive term S/P MVR (mitral valve replacement) 09/28 Overview: Bioprosthetic 29mm epic valve Coronary artery disease invo lving [place] coronary artery of [place] heart without angina pectoris 09/12/2016 Overview: 80% [...] as of this encounter (statuses as of 05/01/2023) Resolved Problems Problem Noted Date Resolved Date [...] as of this encounter (statuses as of 05/01/2023) Immunizations Name Administration Dates Next Due COVID-19 mRNA, LNP-s, No Pre serve, 2-Dose Series (Ometrics) 08/27/2021,09/22/2020,09/01/2020 Hepatitis B, 20+ yrs 09/12/2016 Pneumococcal [...] as of this encounter Progress Notes * Nahomi Rose, [facility] - 05/01/2023 4:26 PM EDT Images from the original note were not included. Medication Therapy Disease Management - Anticoagulation Patient: Ya Dejesus | : 1940 Subjective Contacts Type Contact Phone/Fax 05/01/2023 04:29 PM EDT Phone (Outgoing) IVETT VILLAFUERTE (Emergency Contact) [phone] Patient-Reported Symptoms: Patient Findings Positives: Missed doses (Missed 1 dose) Negatives: Signs/symptoms of thrombosis, Signs/symptoms of bleeding, Change in health, Change in alcohol use, Change in activity, Upcoming invasive procedure, Extra doses, Change in medications, Change in diet/appetite, Bruising Objective Current Warfarin Dose As of 05/01/2023 Warfarin maintenance plan: 5 mg (5 mg x 1) every Sun, Darya; 2.5 mg (5 mg x 0.5) all other days INR Result As of 05/01/2023 INR goal: 2.0-3.0 INR used for dosin.4 (05/01/2023) Assessment & Plan Warfarin Plan As of 05/01/2023 Full warfarin instructions: 05/01: 5 mg; Otherwise 5 mg every Sun, Darya; 2.5 mg all other days Next INR check: 05/15/2023 Repeat PT/INR in 2 week(s) Weekly dose: not changed Additional Dosing Information: Description GML([facility]) Nahomi Rose RP Clinical Pharmacist 05/01/2023, 4:26 PM documented in this encounter Plan of Treatment Upcoming Encounters Date Type Specialty Care Team Description 05/16/[address] [facility] 58 60 [facility] [place] [address] 08/10/2023 Office Visit Cardiology Jayda Segura PA-C [address] [place] [address] 08/30/2023 Office Visit Internal Medicine Magy Segal MD 200 [facility] [place] [address] Scheduled Procedures Name Priority Associated Diagnoses Date/Ti [...] Additional history exists CKD HGB USE SMARTSET 04853 09/27/202209/27, 09/27/2021, 05/26/2021, Additional history exists CKD PHOS USE SMARTSET 54683 09/27/202209/13, 08/20/2020, 07/03/2019, Additional history exists GFR 02/26/2023 08/29/2022, 02/13, 09/27/2021, Additional history exists COVID-19 Vaccine (2022- season) 2023 08/27/2021, 09/22/2020, 09/01/2020 Influenza Vaccine [...] this encounter Medical Devices Implanted Type Area Environmental Consultant Device Identifier Shelf Expiration Date Model / Serial / Lot Shaun Collado 6 [id number] - [id number] Implanted:Qty: 4 on 09/22/2016 by Dejon Carlos MD [place] [facility] [place]A: Sternum JNJ : [employer] 06/14/2021 [id number] / / [id number] documented as of this encounter Visit Diagnoses [...] the patient have Health Care Power of Utility Gelatin Maker? No Care Teams Ship Keeper Relationship Specialty Start Date End Date Magy Segal MD 200 [place] [address] PCP - General Internal Medicine 08/08/19 documented as of this encounter"
--- OUTSIDE RECORDS SUMMARY | 2023-07-28 21:46 | External Medical Summary | Summary of Care ---
Author Name Unknown Organization [facility] Address [address] [facility] [place] [address] Phone [phone] Care Team Providers Care Clinical Support Manager Name Role Phone Magy Segal MD Primary Care Provider + Reason for Visit * Reason Comments Outpatient Testing Encounter Details Date Type Department Care Team (Late st Contact Info) Description 05/21/2023 3:10 PM EST Laboratory Laboratory [facility] [place] [place] [facility] [address] [place] [address] [facility] Lab Scenery [address] [place] [address] Type 2 diabetes mellitus with hemoglobin A1c goal of less than 7.5% ([facility]); Screening for deficiency anemia; Stage 3a chronic kidney disease ([facility]); Dyslipidemia, goal LDL below 70 Allergies Active [...] hemoglobin A1c goal of less than 7.5% (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 0 10/03/2016 Overview: ICD-10 update of inactive term S/P MVR (mitral valve replacement) 09/28/2016 Overview: Bioprosthetic 29mm epic valve Coronary artery disease invo lving [place] coronary artery of [place] heart without angina pectoris 09/12/2016 Overview: 80% [...] Laboratory [facility] [address] [place] [address] Gm, [facility] Home Draw [address] [place] [address] 05/30/2023 6:00 AM EST Anticoagulation Pharmacy Call Center 58-60 [facility] [place] [address] [facility] 58 60 [facility] [place] [address] 08/10/2023 9:00 AM EST Office Visit Cardiology, [facility] [address] [place] [address] Jayda Segura, PAXavi [address] [place] [address] 08/30/2023 10:00 AM EST Office Visit General Internal Medicine [facility] [address] [place] [address] Magy Segal MD 200 [facility] [place], [place] [address] Pending Results Name Type Priority Associated Diagnoses Date /Time HEMOGLOBIN A1C Lab Routine Type 2 diabetes mellitus with hemoglobin A1c goal of less than 7.5% ([facility]) 05/21/2023 3:16 PM EST COMPREHENSIVE METABOLIC PANEL Lab Routine Type 2 diabetes mellitus with hemoglobin A1c goal of less than 7.5% ([facility]) 05/21/2023 3:16 PM EST PHOSPHORUS Lab Routine [...] Additional history exists CKD PHOS USE SMARTSET 26050 09/27/202209/13, 08/20/2020, 07/03/2019, Additional history exists GFR 02/26/2023 08/29/2022, 02/13, 09/27/2021, Additional history exists COVID-19 Vaccine ( season) 2023 08/27/2021, 09/22/2020, 09/01/2020 Influenza Vaccine (FLU shot) (#1) 2023 08/29/2022, 07/25/2021, 05/06/2020, Additional history exists HbA1c 04/24/2023 10/23/2022, 08/16, 09/27/2021, Additional history exists Depression Screening 08/29/2023 08/29/2022 Diabetic Foot Exam 02/23/2024 02/22/2023, 0 02/16/2022, 01/04/2021, Additional history exists CKD HGB USE SMARTSET 46194 05/21/202405/21, 05/21/2023, 09/27/2021, Additional history exists DTaP,Tdap,and [...] this encounter Medical Devices Implanted Type Area Managed Services Sales Consultant Device Identifier Shelf Expiration Date Model / Serial / Lot Shaun Collado 6 [id number] - [id number] Implanted:Qty: 4 on 09/22/2016 by Dejon Carlos MD at OR [facility] [place] N/A: Sternum JNJ : [employer] 06/14/2021 [id number] / / [id number] documented as of this encounter Procedures Procedure [...] - 7.70 K/uL 05/21/2023 3:23 PM EST [facility] 56 Absolute Lymphocytes 4.36 1.00 - 4.80 K/ul 05/21/2023 3:23 PM [facility] 56 Absolute Monocytes 1.39(H) 0.00 - 1.10 K/uL 05/21/2023 3:23 PM EST [facility] 56 Absolute Eosinophils 0.50 0.00 - 0.70 K/uL 05/21/2023 3:23 PM EST [facility] 56 Absolute Basophils 0.06 0.00 - 0.20 K/uL 05/21/2023 3:23 PM [facility] 56 Blood Venous blood specimen / Unknown Venipuncture / Unknown 05/21/2023 3:16 PM EST 05/21/2023 3:16 PM EST Magy Segal MD LAB BLOOD ORDERA BLES Performing Organization Address City/State/[facility] Co de Phone Number [facility] [address] [place] [address] * (ABNORMAL) CBC (05/21/2023 3:16 PM EST) WBC 12.33(H) 4.00 - 10.80 K/uL 05/21/2023 3:23 PM [facility] 56 RBC 4.09 3.85 - 5.15 M/uL 05/21/2023 3:23 PM [facility] 56 HGB 11.9(L) 12.0 - 15.3 g/dL 05/21/2023 3:23 PM [facility] 56 HCT 36.6 36.0 - 45.2 % 05/21/2023 3:23 PM [facility] 56 MCV 89.5 81.5 - 97.5 fL 05/21/2023 3:23 PM [facility] 56 MCH 29.1 27.0 - 34.0 pg 05/21/2023 3:23 PM [facility] 56 MCHC 32.5 32.0 - 36.0 g/dL 05/21/2023 3:23 PM [facility] 56 RDW 15.4 11.5 - 15.5 % 05/21/2023 3:23 PM EST [facility] 56- PLT 303 140 - 400 K/uL 05/21/2023 3:23 PM EST [facility] 56- MPV 9.6 6.6 - 11.1 fL 05/21/2023 3:23 PM EST [facility] 56- Blood Venous blood specimen / Unknown Venipuncture / Unknown 05/21/2023 3:16 PM EST 05/21/2023 3:16 PM EST Magy Segal MD LAB BLOOD ORDERA BLES [facility] [address] [facility] [address] documented in this encounter Visit Diagnoses Diagnosis [...] the patient have Health Care Power of Client Support Professional? No Care Teams Clinical Support Manager Relationship Specialty Start Date End Date Magy Segal MD 200 [facility] [place] [address] PCP - General Internal Medicine 08/08/19 documented as of this encounter
--- OUTSIDE RECORDS SUMMARY | 2023-07-28 21:46 | External Medical Summary | Summary of Care ---
Author Name Unknown Organization [facility] Address [address] [facility] [place] [address] Phone [phone] Care Team Providers Care Telegraph Mechanic Name Role Phone Magy Segal MD Primary Care Provider + Encounter Details Date Type Department Care Team (Late st Contact Info) Description 05/22/2023 Orders Only General Internal Medicine [facility] [address] [facility] [address] Magy Segal MD 200 [place] [address] Subacute otitis media, unspecified otitis media type*; Elevated LFTs Allergies Active Allergy Reactions Criticality Noted Date Comments Haseeb Inhibitors Cough 04/04/2010 documented as of this encounter (statuses as of 05/22/2023) Medications Medication Sig Dispensed Refills Start Date End Date Status aspirin 81 MG chewable tablet Take 1 Tab by mouth daily. 30 Tab 3 09/28/2016 Active OneTouch Delica Lancets 33GIndications:Type 2 diabetes mellitus with hemoglobin A1c goal of less than 7.5% ([facility]) Test blood sugar once daily 100 Each 3 06/15/2020 Active OneTouch Verio In Vitro Strip (Glucose Blood)Indications:T ype 2 diabetes mellitus with hemoglobin A1c goal of less than 7.5% ([facility]) Test blood sugar once daily 100 Strip 3 07/21/2020 Active Fluticasone Propionate 50 MCG/ACT Nasal SuspensionIndicatio ns:Bronchitis, complicated Administer into each nostril 2 Sprays in the morning. 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 0 10/03/2016 Overview: ICD-10 update of inactive term S/P MVR (mitral valve replacement) 09/28/2016 Overview: Bioprosthetic 29mm epic valve Coronary artery disease invo lving [place] coronary artery of [place] heart without angina pectoris 09/12/2016 Overview: 80% [...] as of this encounter (statuses as of 05/22/2023) Resolved Problems Problem Noted Date Diagnosed Date [...] as of this encounter (statuses as of 05/22/2023) Immunizations Name Administration Dates Next Due COVID-19 mRNA, LNP-s, No Pre serve, 2-Dose Series (Career[employer]) 08/27/2021,09/22/2020,09/01/2020 Hepatitis B, 20+ yrs 09/12/2016 Pneumococcal [...] [facility] [address] [place] [address] [facility] Mobile Home Draw [address] [place] [address] 05/30/2023 6:00 AM EST [facility]ticoagulation Pharmacy Call Center [address] [facility] [address] [facility] [address] [facility] [place] [address] 08/10/2023 9:00 AM EST Office Visit Cardiology, [facility] [address] [place] [address] Jayda Segura PA-C [address] [place] [address] 08/30/2023 10:00 AM EST Office Visit General Internal Medicine [facility] [address] [facility] [place] [address] Magy Segal MD [address] [place] [address] Scheduled Orders Name Type Priority Associated Diagnoses Orde r Schedule CBC WITH WBC DIFFERENTIAL Lab Routine Subacute otitis media, unspecified otitis media type Expected: 05/22/2023 (Approximate), Expires: 05/22/2024 COMPREHENSIVE METABOLIC PANEL Lab Routine Subacute otitis media, unspecified otitis media type Elevated LFTs Expected: 05/22/2023 (Approximate), Expires: 05/21/2024 Scheduled Procedures Name Priority Associated Diagnoses Date/Ti [...] Additional history exists CKD HGB USE SMARTSET 92397 05/21/202405/21, 05/21/2023, 09/27/2021, Additional history exists CKD PHOS USE SMARTSET 86260 05/21/202412/2022, 09/27/2021, 08/20/2020, Additional history exists DTaP,Tdap,and Td [...] this encounter Medical Devices Implanted Type Area Cement Tile Maker Device Identifier Shelf Expiration Date Model / Serial / Lot Shaun Collado 6 [id number] - [id number] Implanted:Qty: 4 on 09/22/2016 by Dejon Carlos MD at OR [facility] N/A: Sternum JNJ : [employer] 06/14/2021 [id number] / / [id number] documented as of this encounter Visit Diagnoses Diagnosis Subacute otitis media, unspecified otitis media type- Primary Elevated LFTs Other abnormal blood chemistry documented in this encounter Advance Directives Latest Code Status on File Code Status Date Activated Date Inactivated Comments Full Code 09/22/2016 12:20 PM 09/28/2016 3:42 PM This order reflects the patients wishes and were consensually agreed upon. Question Answer Comments Discussion of Advance Directives occurred with: Patient Does the patient have a Living Will? No Does the patient have Health Care Power of Bench Hand? No Care Teams Telegraph Mechanic Relationship Specialty Start Date End Date Magy Segal MD [address] [place] [address] PCP - General Internal Medicine 08/08/19 documented as of this encounter
--- OUTSIDE RECORDS SUMMARY | 2023-07-28 21:46 | External Medical Summary | Summary of Care ---
Author Name Unknown Organization [facility] Address [address] [place] [address] Phone [phone] Care Team Providers Care Bomb Squad Officer Name Role Phone Magy Segal MD Primary Care Provider + Reason for Visit * Reason Onset Date Comments Advice 05/22/2023 Encounter Details Date Type Department Care Team (Late st Contact Info) Description 05/22/[address] [facility] [address] [facility] [place] [address] Magy Segal MD 200 [place] [facility] [place] [address] Advice Allergies Active Allergy Reactions Criticality Noted Date Comments Haseeb Inhibitors Cough 04/04/2010 documented as of this encounter (statuses as of 05/22/2023) Medications Medication Sig Dispensed Refills Start Date End Date Status aspirin 81 MG chewable tablet Take 1 Tab by mouth daily. 30 Tab 3 09/28/2016 Active OneTouch Delica Lancets 33GIndications:Type 2 diabetes mellitus with hemoglobin A1c goal of less than 7.5% ([facility]) Test blood sugar once daily 100 Each 3 06/15/2020 Active OneTouch Verio In Vitro Strip (Glucose Blood)Indications:T ype 2 diabetes mellitus with hemoglobin A1c goal of less than 7.5% ([facility]) Test blood sugar once daily 100 Strip 3 07/21/2020 Active Fluticasone Propionate 50 MCG/ACT Nasal SuspensionIndicatio ns:Bronchitis, complicated Administer into each nostril 2 Sprays in the morning. 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 0 10/03/2016 Overview: ICD-10 update of inactive term S/P MVR (mitral valve replacement) 09/28/2016 Overview: Bioprosthetic 29mm epic valve Coronary artery disease invo lving [place] coronary artery of [place] heart without angina pectoris 09/12/2016 Overview: 80% [...] mRNA, LNP-s, No Pre serve, 2-Dose Series (Image Searcher) 08/27/2021,09/22/2020,09/01/2020 Hepatitis B, 20+ yrs 09/12/2016 Pneumococcal [...] Miscellaneous Notes * Telephone Encounter - Linwood Bacon CMA - 05/22/2023 12:39 PM EST Patient's daughter ivett is aware and verbalized understanding * Telephone Encounter - Linwood Bacon CMA - 05/22/2023 12:36 PM EST ----- Message from Magy Segal MD sent at 05/22/2023 6:51 AM EST ----- Patient was just seen by Dr. Kim for ear infection and had blood work done. Seems like she has a high WBC count, high liver function test and slightly high kidney function test. Make sure she is not taking any [id number] NSAIDs, drink 7 to 8 glasses of water and finish all the medications given by Dr. Kim. We need to repeat CMP, CBCD in a month from now. If by any chance if symptoms gets worse then she should go to emergency room or call us back. documented in this encounter Plan of Treatment Upcoming Encounters Date Type Department Care Team (Late st Contact Info) Description 05/29/2023 8:30 AM EST Laboratory Lab [place] [facility] [address] [place] [address] [facility] Draw [address] [place] [address] 05/30/2023 6:00 AM EST Anticoagulation Pharmacy Call Center [address] [facility] [place] [address] [facility] [address] 60 [facility] [place] [address] 08/10/2023 9:00 AM EST Office Visit Cardiology, [facility] [address] [place] [address] Jayda Segura, ROCKY [address] [place] [address] 08/30/2023 10:00 AM EST Office Visit General Internal Medicine [facility] 200 [facility] [place] [place] [address] Magy Segal MD 200 [facility] [place] [address] Scheduled Procedures Name Priority Associated Diagnoses Date/Ti [...] Additional history exists CKD HGB USE SMARTSET 50635 05/21/202405/21, 05/21/2023, 09/27/2021, Additional history exists CKD PHOS USE SMARTSET 29617 05/21/2024 11/0 12/2022, 09/27/2021, 08/20/2020, Additional history [...] this encounter Medical Devices Implanted Type Area Underground Mine Superintendent Device Identifier Shelf Expiration Date Model / Serial / Lot Sut Steel 6 [id number] - [id number] Implanted:Qty: 4 on 09/22/2016 by Dejon Carlos MD [place] [facility] [place]/A: Sternum JNJ : [employer] 06/14/2021 [id number] / / [id number] documented as of this encounter Advance Directives [...] the patient have Health Care Power of Retirement Actuary? No Care Teams Bomb Squad Officer Relationship Specialty Start Date End Date Magy Segal MD [address] [facility] [place] [address] PCP - General Internal Medicine 08/08/19 documented as of this encounter
--- OUTSIDE RECORDS SUMMARY | 2023-07-28 21:46 | External Medical Summary ---
Author Name Unknown Address Unknown Organization [id number]:LABORATORY [facility] - [address] [place] [address] Laboratory Report Ordering Provider Test Date Status MIGUEL MACHUCA 05/21/2023 15:16:57 Final Observation Date Value Abnormality Reference (Units ) Status LDL, (direct) 05/21/2023 15:16:57 24 <=129 (mg/dL) Final LDL Cholesterol Reference Ra nges (mg/dL):
<70 Target level for high risk ASCVD patient
<100 Optimal for general population
100-129 Near optimal for general population
130-159 Borderline high
160-189 High
>=190 Very high Performing Location LABORATORY [facility] - [address] [place] [address]
--- OUTSIDE RECORDS SUMMARY | 2023-07-28 21:46 | External Medical Summary | Summary of Care ---
Author Name Unknown Organization [facility] Address [address] [facility] [place] [address] Phone [phone] Care Team Providers Care Forestry Biology Specialist Name Role Phone Magy Segal MD Primary Care Provider + Reason for Visit * Reason Onset Date Comments Medication Update 05/21/2023 Encounter Details Date Type Department Care Team (Late st Contact Info) Description 05/21/2023 Telephone Pharmacy Call Center [address] [place] [address] [facility] [address] [place] [address] Medication Update Allergies Active Allergy Reactions Criticality Noted Date Comments Haseeb Inhibitors Cough 04/04/2010 documented as of this encounter (statuses as of 05/21/2023) Medications Medication Sig Dispensed Refills Start Date End Date Status aspirin 81 MG chewable tablet Take 1 Tab by mouth daily. 30 Tab 3 09/28/2016 Active OneTouch Delica Lancets 33GIndications:Type 2 diabetes mellitus with hemoglobin A1c goal of less than 7.5% ([facility]) Test blood sugar once daily 100 Each 3 06/15/2020 Active OneTouch Verio In Vitro Strip (Glucose Blood)Indications:T ype 2 diabetes mellitus with hemoglobin A1c goal of less than 7.5% ([facility]) Test blood sugar once daily 100 Strip 3 07/21/2020 Active Fluticasone Propionate 50 MCG/ACT Nasal SuspensionIndicatio ns:Bronchitis, complicated Administer into each nostril 2 Sprays in the morning. 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 Advise no change in coumadin therapy. Advise if severe NVD greater than 24 hours tocall clinic and let us know otherwise have INR on 05/29 as previously scheduled. Nancy Medrano Rph, Pharm.D. Clinical Pharmacist [facility] ([facility]) (formerly Telepharmacy) [phone] 05/21/2023,4:18 PM documented in this encounter Plan of Treatment Upcoming Encounters Date Type Department Care Team (Late st Contact Info) Description 05/29/2023 8:30 AM EST Laboratory Lab Mobile Phlebotomy [facility] [address] [place] [address] [facility] Mobile Home Draw [address] [place] [address] 05/30/2023 6:00 AM EST Anticoagulation Pharmacy Call Center [address] [place] [address] [facility] [address] [place] [address] 08/10/2023 9:00 AM EST Office Visit Cardiology, [facility] [address] [place] [address] Jayda Segura PA-C [address] [address] 08/30/2023 10:00 AM EST Office Visit General Internal Medicine [facility] [address] [place] [address] Magy Segal MD [address] [place] [address] [place] [address] Scheduled Procedures Name Priority Associated Diagnoses Date/Ti [...] 11/19/2023 05/21/2023, 08/16, 02/28/2022, Additional history exists Diabetic Foot Exam 02/23/2024 02/22/2023, 0 02/16/2022, 01/04/2021, Additional history exists CKD HGB USE SMARTSET 31503 05/21/202405/21, 05/21/2023, 09/27/2021, Additional history exists CKD PHOS USE SMARTSET 81424 05/21/2024 1112/2022, 09/27/2021, 08/20/2020, Additional history exists DTaP,Tdap,and Td [...] this encounter Medical Devices Implanted Type Area Utility Mechanic Supervisor Device Identifier Shelf Expiration Date Model / Serial / Lot Sut Steel 6 M654g - [id number] Implanted:Qty: 4 on 09/22/2016 by Dejon Carlos MD at [place] [facility] N/A: Sternum JNJ : [employer] 06/14/2021 [id number] / / [id number] documented as of this encounter Advance Directives [...] the patient have Health Care Power of Marketing Mgr? No Care Teams Forestry Biology Specialist Relationship Specialty Start Date End Date Magy Segal MD 200 [facility] [place], [place] [address] PCP - General Internal Medicine 08/08/19 documented as of this encounter
--- OUTSIDE RECORDS SUMMARY | 2023-07-28 21:46 | External Medical Summary ---
Author Name Unknown Address Unknown Organization [id number]:[facility] [address] - [address] [place] [address] Laboratory Report Ordering Provider Test Date Status MIGUEL MACHUCA 05/29/2023 08:23:00 Final Observation Date Value Abnormality Reference (Units ) Status BUN 05/29/2023 08:23:00 28 Above high normal 6-20 (mg/dL) Final Creatinine 05/29/2023 08:23:00 1.3 Above high normal 0.5-1.0 (mg/dL) Final Glomerular filtration rate/1.73 sq M.predicted [Volume Rate/Area] in Serum, Plasma or Blood by Creatinine-based formula (CKD-EPI) 05/29/2023 08:23:00 41 Below low normal >=60 (mL/min) Final eGFR is calculated based on the CKD-EPI 2020 equation SODIUM 05/29/2023 08:23:00 136 135-146 (m mol/L) Final Potassium 05/29/2023 08:23:00 4.6 3.5-5.1 (m mol/L) Final Cl 05/29/2023 08:23:00 102 98-107 (mm ol/L) Final CO2 05/29/2023 08:23:00 24 22-32 (mmo l/L) Final Anion gap 05/29/2023 08:23:00 10 7-15 (mmol /L) Final Glucose 05/29/2023 08:23:00 121 Above high normal 70 -120 (mg/dL) Final Albumin 05/29/2023 08:23:00 3.7 Below low normal 3.8 -5.0 (g/dL) Final AST (Aspartate aminotransferase) 05/29/2023 08:23:00 28 10-35 (U/L) Fin al Alk Phos 05/29/2023 08:23:00 81 35-130 (U/ L) Final Bilirubin, Total 05/29/2023 08:23:00 0.3 <=1 .2 (mg/dL) Final Calcium 05/29/2023 08:23:00 9.1 8.4-10.2 ( mg/dL) Final Protein 05/29/2023 08:23:00 6.3 6.0-8.3 (g /dL) Final ALT (Alanine aminotransferase) 05/29/2023 08:23:00 89 Above high normal 10-35 (U/L) Final Performing Location LABORATORY [facility] [address] - [address] [place] [address]
--- OUTSIDE RECORDS SUMMARY | 2023-07-28 21:46 | External Medical Summary ---
Author Name Unknown Address Unknown Organization K09:[facility]ATORY [place] [address] Laboratory Report Ordering Provider Test Date Status MIGUEL MACHUCA 05/21/2023 15:16:57 Final Observation Date Value Abnormality Reference (Units ) Status Phosphate 05/21/2023 15:16:57 3.9 2.5-4.8 (m g/dL) Final Performing Location [facility]ATORY [place] [address]
--- OUTSIDE RECORDS SUMMARY | 2023-07-28 21:46 | External Medical Summary ---
Author Name Unknown Address Unknown Organization [id number]:[facility] [address] - [address] [place] [address] Laboratory Report Ordering Provider Test Date Status DANISHA LOPEZ 05/29/2023 08:23:00 Final Standing order for pt/inr.
Please draw pt/inr every 1 to 4 weeks as requested
Results to [facility]ticoagulation [facility]

Warfarin Therapy
INR: 2.0-3.0 conventional anticoagulation
INR: 2.5-3.5 high intensity anticoagulation Observation Date Value Abnormality Reference (Units ) Status PT 05/29/2023 08:23:00 21.8 Above high normal 11 .6-15.2 (seconds) Final INR 05/29/2023 08:23:00 1.9 Above high normal 0. 8-1.2 Final Performing Location LABORATORY [facility] [address] - [address] [place] [address]
--- OUTSIDE RECORDS SUMMARY | 2023-07-28 21:46 | External Medical Summary | Summary of Care ---
Author Name Unknown Organization [facility] Address [address] [place] [address] Phone [phone] Care Team Providers Care Security Public Safety Officer Name Role Phone Magy Segal MD Primary Care Provider + Reason for Visit * Reason Comments Dosage Adjustment Via Phone (anticoag Cl inic) Encounter Details Date Type Department Care Team (Latest Contact Info) Description 05/16/2023 6:00 AM EDT Anticoagulation Pharmacy Call Center [phone] [facility] [place] [address] [facility] [address] [facility] [place] [address] S/P MVR (mitral valve replacement)*; Bioprosthetic mitral valve replacement, current hospitalization Allergies Active Allergy Reactions Criticality Noted Date Comments Haseeb Inhibitors Cough 04/04/2010 documented as of this encounter (statuses as of 05/16/2023) Medications Medication Sig Dispensed Refills Start Date [...] hemoglobin A1c goal of less than 7.5% ([facility]) Test blood sugar once daily 100 Strip 3 07/21/2020 Active Fluticasone Propionate 50 MCG/ACT Nasal SuspensionIndication s:Bronchitis, complicated Administer into each nostril 2 Sprays in the morning. 9.9 mL 2 08/30/2021 Active Additional Information Patient taking differently:2 [place] Each Nostril Daily(AM),As needed, Informant: Child, Reported [...] Oral Tablet (Jantoven)Indication s:Coronary artery disease involving [place] coronary artery of [place] heart without angina pectoris,S/P MVR (mitral valve replacement) TAKE ONE TABLET BY MOUTH DAILY or as directed by coag clinic 90 Tablet 3 03/30/2023 Active Famotidine 20 MG Oral Tablet (Pepcid) TAKE ONE TABLET BY MOUTH IN THE MORNING AND ONE BEFORE BEDTIME 180 Tablet 3 04/03/2023 Active documented as of this encounter (statuses as of 05/16/2023) Active Problems Problem Noted Date Diagnosed Date [...] (NSTEMI) 07/20/2017 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 0 10/03/2016 Overview: ICD-10 update of inactive term S/P MVR (mitral valve replacement) 09/28/2016 Overview: Bioprosthetic 29mm epic valve Coronary artery disease invo lving gulk[place] coronary artery of gulkana heart without angina pectoris 09/12/2016 Overview: 80% [...] as of this encounter (statuses as of 05/16/2023) Resolved Problems Problem Noted Date Diagnosed Date [...] as of this encounter (statuses as of 05/16/2023) Immunizations Name Administration Dates Next Due COVID-19 mRNA, LNP-s, No Pre serve, 2-Dose Series ([employer]) 08/27/2021,09/22/2020,09/01/2020 Hepatitis B, 20+ yrs 09/12/2016 Pneumococcal [...] as of this encounter Progress Notes * Krystina Marie, silk screen printer helper - 05/16/2023 8:20 AM EDT Contacts Type Contact Phone/Fax 05/16/2023 08:18 AM EDT Phone (Outgoing) FRANCIS VILLAFUERTE (Emergency Contact) [phone] Left Message Subjective Advised patient to contact Anticoagulation Clinic if any unusual bruising or bleeding, recent illness, changes in medication, or questions/concerns. PT/INR results, Coumadin dose instructions, and next PT/INR date communicated as noted by Pharmacist: Yes HEMA LAINEZ 05/16/2023, 8:20 AM * Nancy Medrano RPh - 05/16/2023 8:09 AM EDT Coumadin Clinic (region specific) Objective Current Warfarin Dose As of 05/16/2023 Warfarin maintenance plan: 5 mg (5 mg x 1) every Sun, Darya; 2.5 mg (5 mg x 0.5) all other days INR Result As of 05/16/2023 INR goal: 2.0-3.0 INR used for dosin.9 (05/15/2023) Assessment & Plan Warfarin Plan As of 05/16/2023 Full warfarin instructions: 5 mg every Sun, Darya; 2.5 mg all other days No change documented: Nancy Medrano RPh Next INR check: 05/29/2023 Repeat PT/INR in 2 week(s) Weekly dose: not changed Additional Dosing Information: Description [facility] Tech to contact patient with dose instructions as noted. Nancy Medrano RPh 05/16/2023, 8:09 AM documented in this encounter Plan of Treatment Upcoming Encounters Date Type Department Care Team (Late st Contact Info) Description 08/10/2023 9:00 AM EST Office Visit Cardiology, [facility] [address] [place] [address] Jayda Segura PA-C [address] [place] [address] 08/30/2023 10:00 AM EST Office Visit General Internal Medicine State [place] [address] [place] [address] Magy Segal MD 200 [facility] [place] [address] Scheduled Procedures Name Priority Associated Diagnoses Date/Ti [...] Additional history exists CKD HGB USE SMARTSET 74662 09/27/202209/27, 09/27/2021, 05/26/2021, Additional history exists CKD PHOS USE SMARTSET 52838 09/27/202209/13, 08/20/2020, 07/03/2019, Additional history exists GFR [...] this encounter Medical Devices Implanted Type Area Youth Support Worker Device Identifier Shelf Expiration Date Model / Serial / Lot Sut Tobias 6 [id number] - [id number] Implanted:Qty: 4 on 09/22/2016 by Dejon Carlos MD at OR [facility] [place] N/A: Sternum JNJ : [employer] 06/14/2021 [id number] / / [id number] documented as of this encounter Visit Diagnoses [...] the patient have Health Care Power of Change Advisor? No Care Teams Security Public Safety Officer Relationship Specialty Start Date End Date Magy Segal MD [address] [facility] [place] [address] PCP - General Internal Medicine 08/08/19 documented as of this encounter
--- OUTSIDE RECORDS SUMMARY | 2023-07-28 21:46 | External Medical Summary ---
Author Name Unknown Address Unknown Organization K01:LAB[facility] - [address] [place] [address] Laboratory Report Ordering Provider Test Date Status DANISHA LOPEZ 05/15/2023 07:30:00 Final Standing order for pt/inr.
Please draw pt/inr every 1 to 4 weeks as requested
Results to [facility]

Warfarin Therapy
INR: 2.0-3.0 conventional anticoagulation
INR: 2.5-3.5 high intensity anticoagulation Observation Date Value Abnormality Reference (Units ) Status PT 05/15/2023 07:30:00 30.6 Above high normal 11 .6-15.2 (seconds) Final INR 05/15/2023 07:30:00 2.9 Above high normal 0. 8-1.2 Final Performing Location [facility] - [address] [place] [address]
--- OUTSIDE RECORDS SUMMARY | 2023-07-28 21:46 | External Medical Summary ---
Author Name Unknown Address Unknown Organization K01:[facility] [place] - [place] [address] [facility] [address] Laboratory Report Ordering Provider Test Date Status MIGUEL MACHUCA 05/21/2023 15:16:57 Final Observation Date Value Abnormality Reference (Units ) Status HbA1C 05/21/2023 15:16:57 6.8 Above high normal 4. 0-5.6 (%) Final The use of HbA1c to monitor glycemic status is based on normal hemoglobin and HbA composition. This test should not be used in patients with abnormal hemoglobin that affects the half life of the red blood cell or the in vivo glycation rates. Glucose, estimated average 05/21/2023 15:16:57 148 Above high normal <126 (mg/dL) Shaquille cabral Performing Location [facility] [address] [facility] [address]
--- OUTSIDE RECORDS SUMMARY | 2023-07-28 21:46 | External Medical Summary | Summary of Care ---
Author Name Unknown Organization [facility] Address [address] [place] [address] Phone [phone] Care Team Providers Care Clinical Education Coordinator Name Role Phone Magy Segal MD Primary Care Provider + Reason for Visit * Reason [place] Date Comments Test Results 05/29/2023 Encounter Details Date Type Department Care Team (Late st Contact Info) Description 05/29/2023 Telephone General Internal Medicine [facility] [address] [facility] [place] [address] Magy Segal MD 200 [place] [address] Test Results Allergies Active Allergy Reactions Criticality Noted Date Comments Haseeb Inhibitors Cough 04/04/2010 documented as of this encounter (statuses as of 05/29/2023) Medications Medication Sig Dispensed Refills Start Date End Date Status aspirin 81 MG chewable tablet Take 1 Tab by mouth daily. 30 Tab 3 09/28/2016 Active OneTouch Delica Lancets 33GIndications:Type 2 diabetes mellitus with hemoglobin A1c goal of less than 7.5% ([facility]) Test blood sugar once daily 100 Each 3 06/15/2020 Active OneTouch Verio In Vitro Strip (Glucose Blood)Indications:T ype 2 diabetes mellitus with hemoglobin A1c goal of less than 7.5% ([facility]) Test blood sugar once daily 100 Strip 3 07/21/2020 Active Fluticasone Propionate 50 MCG/ACT Nasal SuspensionIndicatio ns:Bronchitis, complicated Administer into each nostril 2 Sprays in the morning. 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 0 10/03/2016 Overview: ICD-10 update of inactive term S/P MVR (mitral valve replacement) 09/28/2016 Overview: Bioprosthetic 29mm epic valve Coronary artery disease invo lving umatilla tribe coronary artery of umatilla tribe heart without angina pectoris 09/12/2016 Overview: 80% [...] as of this encounter (statuses as of 05/29/2023) Resolved Problems Problem Noted Date Diagnosed Date [...] as of this encounter (statuses as of 05/29/2023) Immunizations Name Administration Dates Next Due COVID-19 mRNA, LNP-s, No Pre serve, 2-Dose Series ([email or web address]) 08/27/2021,09/22/2020,09/01/2020 Hepatitis B, 20+ yrs 09/12/2016 Pneumococcal [...] Care Team (Late st Contact Info) Description 05/30/2023 6:00 AM EST Anticoagulation Pharmacy Call Center WB [address] [facility] [place] [address] [facility] [address] 60 [facility] [place] [address] 08/10/2023 9:00 AM EST Office Visit Cardiology, [facility] [address] [place] [address] Jayda Segura PA-C [address] [place] [address] 08/30/2023 10:00 AM EST Office Visit General Internal Medicine State [facility] White [address] [place] [address] Magy Segal MD [address] [place] [address] Scheduled Procedures Name Priority Associated Diagnoses Date/Ti [...] Depression Screening 08/29/2023 08/29/2022 HbA1c 11/19/2023 05/21/2023, 04, 08/29/2022, Additional history exists GFR 11/27/2023 05/29/2023, 1112/2022, 08/29/2022, Additional history exists Diabetic Foot Exam 02/23/2024 02/22/2023, 0 02/16/2022, 01/04/2021, Additional history exists CKD PHOS USE SMARTSET 56326 05/21/2024/0 12/2022, 09/27/2021, 08/20/2020, Additional history exists Albumin/Creatinine Ratio 05/25/20242 023, 08/20/2020, 02/10/2020, Additional history exists CKD HGB USE SMARTSET 96501 05/29/202405/29, 05/29/2023, 05/21/2023, Additional history exists DTaP,Tdap,and [...] this encounter Medical Devices Implanted Type Area Cook Chill Technician Device Identifier Shelf Expiration Date Model / Serial / Lot Sut Steel 6 [id number] - [id number] Implanted:Qty: 4 on 09/22/2016 by Dejon Carlos MD at OR [facility] [place] N/A: Sternum JNJ : [employer] 06/14/2021 [id number] / / [id number] documented as of this encounter Advance Directives [...] the patient have Health Care Power of Rec Therapist? No Care Teams Clinical Education Coordinator Relationship Specialty Start Date End Date Magy Segal MD [address] [place] [address] PCP - General Internal Medicine 08/08/19 documented as of this encounter
--- OUTSIDE RECORDS SUMMARY | 2023-07-28 21:46 | External Medical Summary ---
Author Name Unknown Address Unknown Organization K01:[facility] [facility] [address] [facility] [address] [facility] [address] Laboratory Report Ordering Provider Test Date Status MIGUEL MACHUCA 05/25/2023 10:01:03 Final Normal: <30 mg/g creatinine< br/>High: 30-300 mg/g creatinine
Very High: >300 mg/g creatinine
Nephrotic: >2200 mg/g creatinine Observation Date Value Abnormality Reference (Units ) Status Albumin, Urine 05/25/2023 10:01:03 <1.20 (mg/dL) Final Creatinine, Urine 05/25/2023 10:01:03 42 (mg/dL) Final Albumin/Creatinine [Mass Ratio] in Urine 05/25/2023 10:01:03 <29 <30 (mg/g Creat) Final Performing Location [facility] [address] [facility] [address]
--- OUTSIDE RECORDS SUMMARY | 2023-07-28 21:47 | External Medical Summary | Summary of Care ---
Author Name Unknown Organization [facility] Address [address] [facility] [place] [address] Phone [phone] Care Team Providers Care Advertising Photographer Name Role Phone Magy Segal MD Primary Care Provider + Reason for Visit * Reason Comments Dosage Adjustment Via Phone (anticoag Cl inic) Encounter Details Date Type Department Care Team Description 02/27/2023 Anticoagulation Pharmacy Call Center [address] [place] [address] [facility] [address] [facility] [place] [address] S/P MVR (mitral valve replacement)*; Bioprosthetic mitral valve replacement, current hospitalization Allergies Active Allergy Reactions Severity Noted Date Comments Haseeb Inhibitors Cough 04/04/2010 documented as of this encounter (statuses as of 02/27/2023) Medications Medication Sig Dispensed Refills Start Date [...] 08/30/2021 Active Additional Information Patient taking differently:2 [place] Each Nostril Daily(AM),As needed, Informant: Child, Reported on 08/29/2022 amLODIPine Besylate 2.5 MG Oral Tablet (Norvasc) TAKE ONE TABLET BY MOUTH DAILY 90 Tablet 3 06/16/2022 Active Metoprolol Tartrate 25 MG Oral Tablet (Lopressor)Indicatio ns:Essential hypertension with goal blood pressure less than 140/90,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 TAKE ONE TABLET BY MOUTH TWICE DAILY 180 Tablet 2 07/03/2022 Active Rosuvastatin Calcium 20 MG Oral Tablet (Crestor) TAKE ONE TABLET BY MOUTH DAILY 90 Tablet 3 07/03/2022 Active Warfarin Sodium 5 MG Oral Tablet (Jantoven) TAKE ONE TABLET BY MOUTH DAILY or as directed by coag clinic Strength: 5 mg 90 Tablet 1 08/21/2022 Active Famotidine 20 MG Oral Tablet (Pepcid) Take 1 Tablet by mouth in the morning and 1 Tablet before bedtime. 180 Tablet 1 08/21/2022 Active Zoster Vac Recomb Adjuvanted 50 MCG/0.5ML [...] a meal. 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 10/03/2016 Overview: ICD-10 update of inactive term S/P MVR (mitral valve replacement) 09/28 Overview: Bioprosthetic 29mm epic valve Coronary artery disease invo lving [place] coronary artery of [place]rokee heart without angina pectoris 09/12/2016 Overview: 80% [...] as of this encounter (statuses as of 02/27/2023) Resolved Problems Problem Noted Date Resolved Date [...] as of this encounter (statuses as of 02/27/2023) Immunizations Name Administration Dates Next Due COVID-19 mRNA, LNP-s, No Pre serve, 2-Dose Series ([employer]) 08/27/2021,09/22/2020,09/01/2020 Hepatitis B, 20+ yrs 09/12/2016 Pneumococcal Conjugate Vacc, 13 Valent (Prevnar) 06/03/2015 Pneumococcal Polysaccharide PPV23 (Pneumovax) 09/03/2006 Seasonal Influenza, Quadriva lent Hd (Fluzone Hd) 08/29/2022,07/25/2021 Seasonal Influenza, Quadriva lent, No Preserve, Adjuvanted, 65+ Yrs, IM 05/06/2020 TDAP (age 11 and older)(Adacel) 09/13/2022,10/31 Zoster [...] Progress Notes * Nancy Medrano RPh - 02/27/2023 10:59 AM EDT Agree with plan. Nancy Medrano Rph, Pharm.D. Clinical Pharmacist [facility] [phone] 02/27/2023,10:59 AM documented in this encounter Plan of Treatment Upcoming Encounters Date Type Specialty Care Team Description 03/20/2023 Laboratory Laboratory Processing [facility], [facility] Mobile Home Draw [address] [place] [address] 08/30/2023 Office Visit Internal Medicine Magy Segal MD [address] [place] [address] Scheduled Procedures Name Priority Associated Diagnoses Date/Ti [...] Additional history exists CKD HGB USE SMARTSET 45530 09/27/202209/27, 09/27/2021, 05/26/2021, Additional history exists CKD PHOS USE SMARTSET 96722 09/27/202209/13, 08/20/2020, 07/03/2019, Additional history exists GFR 02/26/2023 08/29/2022, 02/13, 09/27/2021, Additional history exists Influenza Vaccine (FLU shot) (#1) 2023 08/29/2022, 07/25/2021, 05/06/2020, Additional history exists HbA1c 04/24/2023 10/23/2022, 08/16, 09/27/2021, Additional history exists Depression Screening, Annual for Pts 12 and Over 08/29/2023 08/29/2022 DIABETES-FOOT EXAM 02/23/2024 02/22/2023, 0 02/16/2022, 01/04/2021, Additional history [...] this encounter Medical Devices Implanted Type Area Die Mounter Device Identifier Shelf Expiration Date Model / Serial / Lot Sut Steel 6 [id number] - [id number] Implanted:Qty: 4 on 09/22/2016 by Dejon Carlos MD at OR [facility] [place] N/A: Sternum JNJ : [employer] 06/14/2021 [id number] / / [id number] documented as of this encounter Visit Diagnoses [...] the patient have Health Care Power of Real Estate Administrator? No Care Teams Advertising Photographer Relationship Specialty Start Date End Date Magy Segal MD [address] [place] [address], [place] [address] PCP - General Internal Medicine 08/08/19 documented as of this encounter
--- OUTSIDE RECORDS SUMMARY | 2023-07-28 21:47 | External Medical Summary | Summary of Care ---
Author Name Unknown Organization [facility] Address [address] [place] [address] Phone [phone] Care Team Providers Care Subway Train Operator Name Role Phone Magy Segal MD Primary Care Provider + Encounter Details Date Type Department Care Team Description 03/06/2023 Orders Only Outcomes Research Department [address] [place] [address] Anisha Benitez CHRA [employer] Research Other*[id number] Allergies Active Allergy Reactions Severity Noted Date Comments Haseeb Inhibitors Cough 04/04/2010 documented as of this encounter (statuses as of 03/06/2023) Medications Medication Sig Dispensed Refills Start Date [...] 08/30/2021 Active Additional Information Patient taking differently:2 [place] Each Nostril Daily(AM),As needed, Informant: Child, Reported [...] as of this encounter (statuses as of 03/06/2023) Active Problems Problem Noted Date Diabetes mellitus [...] 10/27/2016 group home current use of 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 t herapy 10/03/2016 Overview: ICD-10 update of inactive term S/P MVR (mitral valve replacement) 09/28 Overview: Bioprosthetic 29mm epic valve Coronary artery disease invo lving [place] coronary artery of [place] heart without angina pectoris 09/12/2016 Overview: 80% [...] as of this encounter (statuses as of 03/06/2023) Resolved Problems Problem Noted Date Resolved Date [...] as of this encounter (statuses as of 03/06/2023) Immunizations Name Administration Dates Next Due COVID-19 mRNA, LNP-s, No Pre serve, 2-Dose Series ([employer]) 08/27/2021,09/22/2020,09/01/2020 Hepatitis B, 20+ yrs 09/12/2016 Pneumococcal [...] Care Team Description 03/20/2023 Laboratory Laboratory Processing [facility] Home Draw [address] [place] [address] 03/21/2023 [facility], [facility] [address] [facility] [place] [address] 08/30/2023 Office Visit Internal Medicine Magy Segal MD [address] [place] [address] Scheduled Orders Name Type Priority Associated Diagnoses Orde r Schedule MYCODE SUBSEQUENT ADULT Lab Routine My[employer] Research Other*[id number] Every 6 Months for 2 Occurrences starting 03/06/2023 until 03/25/2024 Scheduled Procedures Name Priority Associated Diagnoses Date/Ti [...] Additional history exists CKD HGB USE SMARTSET 79035 09/27/202209/27, 09/27/2021, 05/26/2021, Additional history exists CKD PHOS USE SMARTSET 69586 09/27/202209/13, 08/20/2020, 07/03/2019, Additional history exists GFR [...] this encounter Medical Devices Implanted Type Area Principal Trainer Device Identifier Shelf Expiration Date Model / Serial / Lot Sut Steel 6 [id number] - [id number] Implanted:Qty: 4 on 09/22/2016 by Dejon Carlos [place] [facility] [place]A: Sternum JN[employer] : [employer] 06/14/2021 [id number] / / [id number] documented as of this encounter Visit Diagnoses Diagnosis My[employer] Research Other*[id number] documented in this encounter Advance Directives Latest Code Status on File Code Status Date Activated Date Inactivated Comments Full Code 09/22/2016 12:20 PM 09/28/2016 3:42 PM This order reflects the patients wishes and were consensually agreed upon. Question Answer Comments Discussion of Advance Directives occurred with: Patient Does the patient have a Living Will? No Does the patient have Health Care Power of Putaway Driver? No Care Teams Subway Train Operator Relationship Specialty Start Date End Date Magy Segal MD [address] [place] [address] PCP - General Internal Medicine 08/08/19 documented as of this encounter
--- OUTSIDE RECORDS SUMMARY | 2023-07-28 21:47 | External Medical Summary | Summary of Care ---
Author Name Unknown Organization [facility] Address [address] [place] [address] Phone [phone] Care Team Providers Care Weatherization And Housing Inspector Name Role Phone Magy Segal MD Primary Care Provider + Reason for Visit * Reason Comments Dosage Adjustment Via Phone (anticoag Cl inic) Encounter Details Date Type Department Care Team Description 02/06/2023 Anticoagulation Pharmacy Call Center [phone] [place] [address] [facility] [place] [address] S/P MVR (mitral valve replacement)*; Bioprosthetic mitral valve replacement, current hospitalization Allergies Active Allergy Reactions Severity Noted Date Comments Haseeb Inhibitors Cough 04/04/2010 documented as of this encounter (statuses as of 02/06/2023) Medications Medication Sig Dispensed Refills Start Date [...] 08/30/2021 Active Additional Information Patient taking differently:2 [place] Each Nostril Daily(AM),As needed, Informant: Child, Reported [...] 5 mg 90 Tablet 1 08/21/2022 Active Losartan Potassium 50 MG Oral Tablet (Cozaar) Take 1 & 1/2 tablets daily, 135 Tablet 1 08/21/2022 Active Famotidine 20 MG Oral Tablet (Pepcid) Take 1 Tablet by mouth in the morning and 1 Tablet before bedtime. 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 No change in plan. Thank You Jasmin Kee PharmD Clinical Pharmacist Centralized Clinical Pharmacy Services (CCPS) (formerly Telepharmacy) [phone] / [phone] 02/06/2023, 11:11 AM * HEMA Wooten Tech - 02/06/2023 10:57 AM EDT Contacts Type Contact Phone/Fax 02/06/2023 10:51 AM EDT Phone (Outgoing) IVETT VILLAFUERTE (Emergency Contact) [phone] Patient Findings Positives: Change in diet/appetite (Pt has not been eating as much greens as usual. Advised pt contact to help pt be consistent with diet. Less issues with the INR that way.) Negatives: Signs/symptoms of thrombosis, Signs/symptoms of bleeding, Change in health, Change in alcohol use, Change in activity, Upcoming invasive procedure, Missed doses, Extra doses, Change in medications, Bruising Advised patient to contact Anticoagulation Clinic if any unusual bruising or bleeding, recent illness, changes in medication, or questions/concerns. PT/INR results, Coumadin dose instructions, and next PT/INR date communicated as noted by Pharmacist: Yes HEMA Wooten 02/06/2023, 10:57 AM * Jasmin Kee RPh - 02/06/2023 8:48 AM EDT Images from the original note were not included. Coumadin Clinic (region specific) Current Warfarin Dose As of 02/06/2023 Warfarin maintenance plan: 5 mg (5 mg x 1) every Sun, Darya; 2.5 mg (5 mg x 0.5) all other days INR Result As of 02/06/2023 INR goal: 2.0-3.0 INR used for dosin.2 (02/05/2023) Warfarin Plan As of 02/06/2023 Full warfarin instructions: 02/06: Hold; Otherwise 5 mg every Sun, Darya; 2.5 mg all other days Next INR check: 02/26/2023 Repeat PT/INR in 3 week(s) Weekly dose: not changed Additional Dosing Information: Description [facility] Tech to contact patient with dose instructions as noted. Jasmin Kee RPh 02/06/2023, 8:48 AM documented in this encounter Plan of Treatment Upcoming Encounters Date Type Specialty Care Team Description 02/22/2023 Office Visit Internal Medicine Magy Segal MD [address] [facility] [address] 02/26/2023 Laboratory Laboratory Processing [facility] Home Draw [address] [place] [address] 02/27/20[facility] [address] [place] [address] Scheduled Procedures Name Priority Associated Diagnoses Date/Ti [...] 05/27/2022 05/27/2021, , 01/30/2019, Additional history exists DXA Scan 09/08/2022 09/08/2020, 01/14, 10/18/2015, Additional history exists CKD HGB USE SMARTSET 96053 09/27/202209/27, 09/27/2021, 05/26/2021, Additional history exists CKD PHOS USE SMARTSET 60055 09/27/202209/13, 08/20/2020, 07/03/2019, Additional history exists DIABETES-FOOT EXAM 02/16/2023 02/16/2022, 0 01/04/2021, 02/10/2020, Additional history exists GFR 02/26/2023 08/29/2022, 02/13, 09/27/2021, Additional history exists Influenza Vaccine (FLU shot) (#1) 2023 08/29/2022, 07/25/2021, 05/06/2020, Additional history exists HbA1c 04/24/2023 10/23/2022, 08/16, 09/27/2021, Additional history exists Depression Screening, Annual for Pts 12 and Over 08/29/2023 08/29/2022 DTaP,Tdap,and Td Vaccines (3 - Td or Tdap) 09/13/2032 09/13/2022, 11/01/2011 Pneumococcal Vaccine: 65+ Years Completed 06/03/2015, 09/03/2006 VITAMIN D LEVEL ONCE IN A LIFETIME-USE SMARTSET# [id number] Completed 04/27/2016, 10/27/2014, 08/19/2014, Additional history exists COLONOSCOPY-EVERY 5 YRS AGES 18-100 Discontinued 06/22/2021, 04/12/2015, 04/12/2015, Additional history exists Zoster Vaccines Completed 11/21/2022, 09/13/2022 GARDASIL-HPV IMMUNIZATION SERIES Aged Out No longer eligible based on patient's age to complete this topic MENINGOCOCCAL (MENACTRA/MENVEO) Aged Out No longer eligible based on patient's age to complete this topic documented as of this encounter Medical Devices Implanted Type Area Shelver Device Identifier Shelf Expiration Date Model / Serial / Lot Sut Steel 6 [id number] - [id number] Implanted:Qty: 4 on 09/22/2016 by Dejon Carlos MD at OR [facility] [place] N/A: Sternum JNGhanshyam : [employer] 06/14/2021 [id number] / / [id number] documented as of this encounter Visit Diagnoses [...] the patient have Health Care Power of Test Boring Crew Chief? No Care Teams Weatherization And Housing Inspector Relationship Specialty Start Date End Date Magy Segal MD [address] [place] [id number] PCP - General Internal Medicine 08/08/19 documented as of this encounter
--- OUTSIDE RECORDS SUMMARY | 2023-07-28 21:47 | External Medical Summary | Summary of Care ---
Author Name Unknown Organization [facility] Address [address] [facility] [address] Phone [phone] Care Team Providers Care Residential Leasing Agent Name Role Phone Magy Segal MD Primary Care Provider + Reason for Visit * Reason Comments Dosage Adjustment Via Phone (anticoag Cl inic) Encounter Details Date Type Department Care Team Description 02/06/2023 Anticoagulation Pharmacy Call Center [address] [place] [address] [facility] 58 60 [facility] [place] [address] S/P MVR (mitral valve replacement)*; Bioprosthetic mitral valve replacement, current hospitalization; Encounter for long-term (current) use of other medications Allergies Active Allergy Reactions Severity Noted Date Comments Haseeb Inhibitors Cough 04/04/2010 documented as of this encounter (statuses as of 02/26/2023) Medications Medication Sig Dispensed Refills Start Date End Date Status aspirin 81 MG chewable tablet Take 1 Tab by mouth daily. 30 Tab 3 7 Active Blood Glucose Monitoring Suppl (ONETOUCH VERIO) w/Device KITIndications:Typ e 2 diabetes mellitus with hemoglobin A1c goal of less than 7.5% ([facility]) Ck FS daily E11.9 1 Kit 0 9 Active OneTouch Delica Lancets 33GIndications:Typ e 2 diabetes mellitus with hemoglobin A1c goal of less than 7.5% ([facility]) Test blood sugar once daily 100 Each 3 0 Active OneTouch Verio In Vitro Strip (Glucose Blood)Indications: Type 2 diabetes mellitus with hemoglobin A1c goal of less than 7.5% ([facility]) Test blood sugar once daily 100 Strip 3 1 Active Fluticasone Propionate 50 MCG/ACT Nasal SuspensionIndicati ons:Bronchitis, complicated Administer into each nostril 2 Sprays in the morning. 9.9 mL 2 2 Active Additional Information Patient taking differently:2 [place] Each Nostril Daily(AM),As needed, Informant: Child, Reported on 08/29/2022 amLODIPine Besylate 2.5 MG Oral Tablet (Norvasc) TAKE ONE TABLET BY MOUTH DAILY 90 Tablet 3 2 Active Metoprolol Tartrate 25 MG Oral Tablet (Lopressor)Indicat ions:Essential hypertension with goal blood pressure less than 140/90,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 TAKE ONE TABLET BY MOUTH TWICE DAILY 180 Tablet 2 2 Active Rosuvastatin Calcium 20 MG Oral Tablet (Crestor) TAKE ONE TABLET BY MOUTH DAILY 90 Tablet 3 2 Active Warfarin Sodium 5 MG Oral Tablet (Jantoven) TAKE ONE TABLET BY MOUTH DAILY or as directed by coag clinic Strength: 5 mg 90 Tablet 1 3 Active Famotidine 20 MG Oral Tablet (Pepcid) Take 1 Tablet by mouth in the morning and 1 Tablet before bedtime. 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 10/03/2016 Overview: ICD-10 update of inactive term S/P MVR (mitral valve replacement) 09/28 Overview: Bioprosthetic 29mm epic valve Coronary artery disease invo lving [place] coronary artery of [place] heart without angina pectoris 09/12/2016 Overview: [...] as of this encounter (statuses as of 02/26/2023) Resolved Problems Problem Noted Date Resolved Date [...] as of this encounter (statuses as of 02/26/2023) Immunizations Name Administration Dates Next Due COVID-19 mRNA, LNP-s, No Pre serve, 2-Dose Series ([employer]) 08/27/2021,09/22/2020,09/01/2020 Hepatitis B, 20+ yrs 09/12/2016 Pneumococcal Conjugate Vacc, 13 Valent (Prevnar) 06/03/2015 Pneumococcal Polysaccharide PPV23 (Pneumovax) 09/03/2006 Seasonal Influenza, Quadriva lent Hd (Fluzone Hd) 08/29/2022,07/25/2021 Seasonal Influenza, Quadriva lent, No Preserve, Adjuvanted, 65+ Yrs, IM 05/06/2020 Seasonal Influenza, Split, I IV3, With Preserve, [...] this encounter Progress Notes * Jasmin Kee RP - 02/06/2023 11:11 AM EDT Noted. No change in plan. Thank You Jasmin Kee PharmD Clinical Pharmacist Centralized Clinical Pharmacy Services (CCPS) (formerly Telepharmacy) [phone] / [phone] 02/06/2023, 11:11 AM * Jessica Crews - 02/06/2023 10:57 AM EDT Contacts Type Contact Phone/Fax 02/06/2023 10:51 AM EDT Phone (Outgoing) NOYIVETT (Emergency Contact) [phone] Patient Findings Positives: Change in diet/appetite (Pt [...] date communicated as noted by Pharmacist: Yes Jessica Crews, kindergarten aide 02/06/2023, 10:57 AM * Jasmin Kee RPh [...] dose: not changed Additional Dosing Information: Description [facility]) Tech to contact patient with dose instructions as noted. Jasmin Kee [facility] 02/06/2023, 8:48 AM documented in this encounter Miscellaneous Notes * Addendum Note - Jessica Raman RPh - 02/26/2023 1:41 PM EDTAddended by: JESSICA RAMAN on: 02/26/2023 01:41 PM Modules accepted: Orders documented in this encounter Plan of Treatment Upcoming Encounters Date Type Specialty Care Team Description 02/27/2023 [facility] 58 60 [facility] [place] [address] 08/30/2023 Office Visit Internal Medicine Magy Segal MD [address] [place] [address] Scheduled Orders Name Type Priority Associated Diagnoses Orde r Schedule PT INR Lab Routine S/P MVR (mitral valve replacement) Bioprosthetic mitral valve replacement, current hospitalization Encounter for long-term (current) use of other medications Other, Please specify in Comments field for 26 Occurrences starting 02/26/2023 until 02/27/2024 Scheduled Procedures Name Priority Associated Diagnoses Date/Ti me COLONOSCOPY FLEXIBLE PROXIMA L DIAGNOSTIC Recall Family history of colorectal cancer Health Maintenance Due Date Last Done Comments Hepatitis B (2 of 3 - 19+ 3-dose series) 10/10/2016 09/12/2016 Albumin/Creatinine Ratio 08/20/20212 021, 02/10/2020, 01/22/2018, Additional history exists COVID-19 Vaccine (4 - Pfizer series) 10/22/2021 08/27/2021, 09/22/2020, 09/01/2020 *BISPHONATE OR OTHER ACCEPTABLE MEDICATION NEEDED FOR OSTEOPOROSIS (REFER TO SMARTSET #1146) 02/18/2022 DIABETES-EYE EXAM 05/27/2022 05/27/2021, , 01/30/2019, Additional history exists CKD HGB USE SMARTSET 27384 09/27/202209/27, 09/27/2021, 05/26/2021, Additional history exists CKD PHOS USE SMARTSET 92809 09/27/202209/13, 08/20/2020, 07/03/2019, Additional history exists GFR [...] this encounter Medical Devices Implanted Type Area Rn Orthopaedic Device Identifier Shelf Expiration Date Model / Serial / Lot Sut Steel 6 M654g - [id number] Implanted:Qty: 4 on 09/22/2016 [place] De[place] [facility] [place] Sternum RELL : [employer] 06/14/2021 [id number] / / [id number] documented as of this encounter Visit Diagnoses Diagnosis S/P MVR (mitral valve replacement)- Primary Heart valve replaced by other means Bioprosthetic mitral valve replacement, current hospitalization Heart valve replaced by other means Encounter for long-term (current) use of other medications documented in this encounter Advance Directives Latest Code Status on File Code Status Date Activated Date Inactivated Comments Full Code 09/22/2016 12:20 PM 09/28/2016 3:42 PM This order reflects the patients wishes and were consensually agreed upon. Question Answer Comments Discussion of Advance Directives occurred with: Patient Does the patient have a Living Will? No Does the patient have Health Care Power of Head Sawyer? No Care Teams Residential Leasing Agent Relationship Specialty Start Date End Date Magy Segal MD [address] [place] [address] [place] [address] PCP - General Internal Medicine 08/08/19 documented as of this encounter
--- OUTSIDE RECORDS SUMMARY | 2023-07-28 21:47 | External Medical Summary ---
Author Name Unknown Address Unknown Organization [id number]:[facility] [place] - [address] [place] [address] Laboratory Report Ordering Provider Test Date Status JESSICADANISHA 03/20/2023 11:32:16 Final Standing order for pt/inr.
Please draw pt/inr every 1 to 4 weeks as requested
Results to [facility] Anticoagulation [facility]

Warfarin Therapy
INR: 2.0-3.0 conventional anticoagulation
INR: 2.5-3.5 high intensity anticoagulation Observation Date Value Abnormality Reference (Units ) Status PT 03/20/2023 11:32:16 25.2 Above high normal 11 .6-15.2 (seconds) Final INR 03/20/2023 11:32:16 2.3 Above high normal 0. 8-1.2 Final Performing Location [facility] [place] - [address] [place] [address]
--- OUTSIDE RECORDS SUMMARY | 2023-07-28 21:47 | External Medical Summary ---
Author Name Unknown Address Unknown Organization K01[place] [place] [address] [place] [address] Laboratory Report Ordering Provider Test Date Status JESSICABAKARIDENNIS 02/26/2023 13:44:24 Final Standing order for pt/inr.
Please draw pt/inr every 1 to 4 weeks as requested
Results to [facility] Anticoagulation Clinic

Warfarin Therapy
INR: 2.0-3.0 conventional anticoagulation
INR: 2.5-3.5 high intensity anticoagulation Observation Date Value Abnormality Reference (Units ) Status PT 02/26/2023 13:44:24 27.7 Above high normal 11 .6-15.2 (seconds) Final INR 02/26/2023 13:44:24 2.6 Above high normal 0. 8-1.2 Final Performing Location [facility] [place] [address] [place] [address]
--- OUTSIDE RECORDS SUMMARY | 2023-07-28 21:47 | External Medical Summary ---
Author Name Unknown Address Unknown Organization [id number]:[facility] - [address] [place] [address] Laboratory Report Ordering Provider Test Date Status CHIRAG HARRIS 02/05/2023 07:21:00 Final Warfarin Therapy
INR: 2 .0-3.0 conventional anticoagulation
INR: 2.5- 3.5 high intensity anticoagulation Observation Date Value Abnormality Reference (Units ) Status PT 02/05/2023 07:21:00 33.1 Above high normal 11 .6-15.2 (seconds) Final INR 02/05/2023 07:21:00 3.2 Above high normal 0. 8-1.2 Final Performing Location [facility] [address] - [address] [place] [address]
--- OUTSIDE RECORDS SUMMARY | 2023-07-28 21:47 | External Medical Summary | Summary of Care ---
Author Name Unknown Organization [facility] Address [address] [place] [address] Phone [phone] Care Team Providers Care Family Support Worker Name Role Phone Sven Segal MD Primary Care Provider + Reason for Visit * Reason Comments eRx-Medication Refill Encounter Details Date Type Department Care Team Description 04/03/2023 Refill General Internal Medicine [facility] [address] [facility] [place] [address] Sven Segal MD [address] [place] [address] Allergies Active Allergy Reactions Severity Noted Date Comments Haseeb Inhibitors Cough 04/04/2010 documented as of this encounter (statuses as of 04/03/2023) Medications Medication Sig Dispensed Refills Start Date [...] 2 Active Additional Information Patient taking differently:2 [place] Each Nostril Daily(AM),As needed, Informant: Child, Reported on 08/29/2022 amLODIPine Besylate 2.5 MG Oral Tablet (Norvasc) TAKE ONE TABLET BY MOUTH DAILY 90 Tablet 3 2 Active Rosuvastatin Calcium 20 MG Oral Tablet (Crestor) TAKE ONE TABLET BY MOUTH DAILY 90 Tablet 3 2 Active Zoster Vac Recomb Adjuvanted 50 MCG/0.5ML [...] Oral Tablet (Jantoven)Indicati ons:Coronary artery disease involving [place] coronary artery of [place] heart without angina pectoris,S/P MVR (mitral valve replacement) TAKE ONE TABLET BY MOUTH DAILY or as directed by coag clinic 90 Tablet 3 3 Active Famotidine 20 MG Oral Tablet (Pepcid) TAKE ONE TABLET BY MOUTH IN THE MORNING AND ONE BEFORE BEDTIME 180 Tablet 3 3 Active Famotidine 20 MG Oral Tablet (Pepcid) Take 1 Tablet by mouth in the morning and 1 Tablet before bedtime. 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 10/03/2016 Overview: ICD-10 update of inactive term S/P MVR (mitral valve replacement) 09/28 Overview: Bioprosthetic 29mm epic valve Coronary artery disease invo lving [place] coronary artery of [place] heart without angina pectoris 09/12/2016 Overview: 80% [...] as of this encounter (statuses as of 04/03/2023) Resolved Problems Problem Noted Date Resolved Date [...] as of this encounter (statuses as of 04/03/2023) Immunizations Name Administration Dates Next Due COVID-19 mRNA, LNP-s, No Pre serve, 2-Dose Series (100Plus) 08/27/2021,09/22/2020,09/01/2020 Hepatitis B, 20+ yrs 09/12/2016 Pneumococcal [...] encounter Miscellaneous Notes * Telephone Encounter - Anna Astudillo, [facility] - 04/03/2023 4:06 PM EDTSigned Prescriptions: Disp Refills Famotidine 20 MG Oral Tablet (Pepcid) 180 Ta*3 Sig: TAKE ONE TABLET BY MOUTH IN THE MORNING AND ONE BEFORE BEDTIMEAuthorizing Provider: SVEN SEGAL User: ANNA ASTUDILLO documented in this encounter Plan of Treatment Upcoming Encounters Date Type Specialty Care Team Description 04/10/2023 Laboratory Laboratory Processing [facility] Mobile Home Draw [address] [place] [address] 04/11/2023 [facility] [place] [address] [address] [place] [address] 08/10/2023 Office Visit Cardiology Jayda Segura PA-C [address] [place] [address] 08/30/2023 Office Visit Internal Medicine Sven Segal MD [address] [place] [address] Scheduled Procedures Name Priority Associated Diagnoses Date/Ti [...] Additional history exists CKD HGB USE SMARTSET 70945 09/27/202209/27, 09/27/2021, 05/26/2021, Additional history exists CKD PHOS USE SMARTSET 27885 09/27/202209/13, 08/20/2020, 07/03/2019, Additional history exists GFR [...] this encounter Medical Devices Implanted Type Area Can Crimper Device Identifier Shelf Expiration Date Model / Serial / Lot Shaun Collado 6 M654g - [id number] Implanted:Qty: 4 on 09/22/2016 by Dejon Carlos MD at OR [facility] [place] N/A: Dwight ZACARIAS : [employer] 06/14/2021 [id number] / / [id number] documented as of this encounter Advance Directives [...] the patient have Health Care Power of Molded Candles Wicker? No Care Teams Family Support Worker Relationship Specialty Start Date End Date Sven Segal MD [address] [place] [address] [place] [address] PCP - General Internal Medicine 08/08/19 documented as of this encounter
--- OUTSIDE RECORDS SUMMARY | 2023-07-28 21:47 | External Medical Summary | Summary of Care ---
Author Name Unknown Organization [facility] Address [address] [place] [address] Phone [phone] Care Team Providers Care Parts Back Counter Man Name Role Phone Magy Segal MD Primary Care Provider + Encounter Details Date Type Department Care Team Description 02/05/2023 Orders Only Lab Mobile Phlebotomy [facility] [address], [place] [id number] Nancy Medrano, [facility] [address] [place] [address] jail current use of 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 therapy* Allergies Active Allergy Reactions Severity Noted Date Comments Haseeb Inhibitors Cough 04/04/2010 documented as of this encounter (statuses as of 02/05/2023) Medications Medication Sig Dispensed Refills Start Date End Date Status aspirin 81 MG chewable tablet Take 1 Tab by mouth daily. 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 10/03/2016 Overview: ICD-10 update of inactive term S/P MVR (mitral valve replacement) 09/28 Overview: Bioprosthetic 29mm epic valve Coronary artery disease invo lving [place] coronary artery of [place] heart without angina pectoris 09/12/2016 Overview: 80% [...] as of this encounter (statuses as of 02/05/2023) Resolved Problems Problem Noted Date Resolved Date [...] as of this encounter (statuses as of 02/05/2023) Immunizations Name Administration Dates Next Due COVID-19 [...] Encounters Date Type Specialty Care Team Description 02/05/2023 Laboratory Laboratory Processing [facility] Draw [address] [place] [address] 02/06/2023 [facility] [address] [facility] [place] [address] 02/22/2023 Office Visit Internal Medicine Magy Segal MD [address] [place] [address] Scheduled Orders Name Type Priority Associated Diagnoses Orde r Schedule PT INR Lab Routine jail current use of 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 therapy Expected: 02/05/2023, Expires: 02/06/2024 Scheduled Procedures Name Priority Associated Diagnoses Date/Ti [...] Additional history exists CKD HGB USE SMARTSET 49012 09/27/202209/27, 09/27/2021, 05/26/2021, Additional history exists CKD PHOS USE SMARTSET 32113 09/27/202209/13, 08/20/2020, 07/03/2019, Additional history exists DIABETES-FOOT [...] D LEVEL ONCE IN A LIFETIME-USE SMARTSET# 27658 Completed 04/27/2016, 10/27/2014, 08/19/2014, Additional history exists [...] this encounter Medical Devices Implanted Type Area Economic Development Coordinator Device Identifier Shelf Expiration Date Model / Serial / Lot Sut Steel 6 [id number] - [id number] Implanted:Qty: 4 on 09/22/2016 by Dejon Carlos MD at OR [facility] N/A: Sternum JNJ : [employer] 06/14/2021 [id number] / / [id number] documented as of this encounter Visit Diagnoses Diagnosis jail current use of 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 therapy jail current use of 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 therapy- Primary documented in this encounter Advance Directives Latest Code Status on File Code Status Date Activated Date Inactivated Comments Full Code 09/22/2016 12:20 PM 09/28/2016 3:42 PM This order reflects the patients wishes and were consensually agreed upon. Question Answer Comments Discussion of Advance Directives occurred with: Patient Does the patient have a Living Will? No Does the patient have Health Care Power of Lighting Adviser? No Care Teams Parts Back Counter Man Relationship Specialty Start Date End Date Magy Segal MD [address] [place] [address] PCP - General Internal Medicine 08/08/19 documented as of this encounter
--- OUTSIDE RECORDS SUMMARY | 2023-07-28 21:47 | External Medical Summary | Summary of Care ---
Author Name Unknown Organization [facility] Address [address] [place] [address] Phone [phone] Care Team Providers Care Flue Cleaner Name Role Phone Sven Segal MD Primary Care Provider + Reason for Visit * Reason Comments eRx-Medication Refill Encounter Details Date Type Department Care Team Description 02/13/2023 Refill General Internal Medicine [facility] [address] [facility] [place] [address] vSen Segal MD [address] [facility] [place] [address] Allergies Active Allergy Reactions Severity Noted Date Comments Haseeb Inhibitors Cough 04/04/2010 documented as of this encounter (statuses as of 02/14/2023) Medications Medication Sig Dispensed Refills Start Date [...] 2 Active Additional Information Patient taking differently:2 [place] Each Nostril Daily(AM),As needed, Informant: Child, Reported [...] MOUTH DAILY 135 Tablet 1 3 Active Losartan Potassium 50 MG Oral Tablet (Cozaar) Take 1 & 1/2 tablets daily, 135 Tablet 1 3 02/15/20 23 Discontinued documented as of this encounter (statuses as of 02/14/2023) Active Problems Problem Noted Date Diabetes mellitus [...] (NSTEMI) 07/20/2017 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 [facility] current use of 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 t herapy 10/03/2016 Overview: ICD-10 update of inactive term S/P MVR (mitral valve replacement) 09/28 Overview: Bioprosthetic 29mm epic valve Coronary artery disease invo lving [place] coronary artery of [place] heart without angina pectoris 09/12/2016 Overview: 80% [...] as of this encounter (statuses as of 02/14/2023) Resolved Problems Problem Noted Date Resolved Date [...] as of this encounter (statuses as of 02/14/2023) Immunizations Name Administration Dates Next Due COVID-19 mRNA, LNP-s, No Pre serve, 2-Dose Series (GestureTek) 08/27/2021,09/22/2020,09/01/2020 Hepatitis B, 20+ yrs 09/12/2016 Pneumococcal [...] encounter Miscellaneous Notes * Telephone Encounter - Edelmira Petersen [facility] - 02/14/2023 1:29 PM EDT Signed Prescriptions: Disp Refills Losartan Potassium 50 MG Oral Tablet (Coza*135 Ta*1 Sig: TAKE ONE AND ONE-HALF TABLET BY MOUTH DAILYAuthorizing Provider: SVEN SEGAL User: EDELMIRA PETERSEN documented in this encounter Plan of Treatment Upcoming Encounters Date Type Specialty Care Team Description 02/22/2023 Office Visit Internal Medicine Sven Segal MD [address] [place] [address] 02/26/2023 Laboratory Laboratory Processing [facility], [facility] Mobile Home Draw [address] [place], [place] [id number] 02/27/2023 [facility] [address] [place] [address] Scheduled Procedures Name Priority Associated Diagnoses Date/Ti [...] Additional history exists CKD HGB USE SMARTSET 49170 09/27/202209/27, 09/27/2021, 05/26/2021, Additional history exists CKD PHOS USE SMARTSET 91652 09/27/202209/13, 08/20/2020, 07/03/2019, Additional history exists DIABETES-FOOT [...] D LEVEL ONCE IN A LIFETIME-USE SMARTSET# 40042 Completed 04/27/2016, 10/27/2014, 08/19/2014, Additional history exists [...] this encounter Medical Devices Implanted Type Area Gold Prospector Device Identifier Shelf Expiration Date Model / Serial / Lot Sut Steel 6 [id number] - [id number] Implanted:Qty: 4 on 09/22/2016 by Dejon Carlos MD at [place] [facility] [place] N/A: Sternum RELL : [employer] 06/14/2021 [id number] / / [id number] documented as of this encounter Advance Directives [...] the patient have Health Care Power of Digitizer Operator? No Care Teams Flue Cleaner Relationship Specialty Start Date End Date Sven Segal MD [address] [facility] [place] [address] PCP - General Internal Medicine 08/08/19 documented as of this encounter
--- OUTSIDE RECORDS SUMMARY | 2023-07-28 21:47 | External Medical Summary ---
Author Name Unknown Address Unknown Organization K0G[facility] [address] [place] [address] Laboratory Report Ordering Provider Test Date Status DANISHA LOPEZ 04/10/2023 07:35:00 Final Standing order for pt/inr.
Please draw pt/inr every 1 to 4 weeks as requested
Results to [facility]

Warfarin Therapy
INR: 2.0-3.0 conventional anticoagulation
INR: 2.5-3.5 high intensity anticoagulation Observation Date Value Abnormality Reference (Units ) Status PT 04/10/2023 07:35:00 23.1 Above high normal 11 .6-15.2 (seconds) Final INR 04/10/2023 07:35:00 2.0 Above high normal 0. 8-1.2 Final Performing Location [facility] [address] [place] [address]
--- OUTSIDE RECORDS SUMMARY | 2023-07-28 21:47 | External Medical Summary | Summary of Care ---
Author Name Unknown Organization [facility] Address [address] [facility] [place] [address] Phone [phone] Care Team Providers Care Pearl Glue Operator Name Role Phone Magy Segal MD Primary Care Provider + Reason for Visit * Reason Comments Dosage Adjustment Via Phone (anticoag Cl inic) Encounter Details Date Type Department Care Team Description 03/21/2023 Anticoagulation Pharmacy Call Center [address] [place] [address] [facility] [address] [facility] [place] [address] S/P MVR (mitral valve replacement)*; Bioprosthetic mitral valve replacement, current hospitalization Allergies Active Allergy Reactions Severity Noted Date Comments Haseeb Inhibitors Cough 04/04/2010 documented as of this encounter (statuses as of 03/21/2023) Medications Medication Sig Dispensed Refills Start Date [...] 08/30/2021 Active Additional Information Patient taking differently:2 [place] Each Nostril Daily(AM),As needed, Informant: Child, Reported [...] as of this encounter (statuses as of 03/21/2023) Active Problems Problem Noted Date Diabetes mellitus [...] (NSTEMI) 07/20/2017 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 10/03/2016 Overview: ICD-10 update of inactive term S/P MVR (mitral valve replacement) 09/28 Overview: Bioprosthetic 29mm epic valve Coronary artery disease invo lving [place] coronary artery of [place] heart without angina pectoris 09/12/2016 Overview: 80% [...] as of this encounter (statuses as of 03/21/2023) Resolved Problems Problem Noted Date Resolved Date [...] as of this encounter (statuses as of 03/21/2023) Immunizations Name Administration Dates Next Due COVID-19 mRNA, LNP-s, No Pre serve, 2-Dose Series ([employer]) 08/27/2021,09/22/2020,09/01/2020 Hepatitis B, 20+ yrs 09/12/2016 Pneumococcal [...] as of this encounter Progress Notes * Nathan Crews, head of maintenance - 03/21/2023 10:07 AM EDT Contacts Type Contact Phone/Fax 03/21/2023 10:06 AM EDT Phone (Outgoing) IVETT VILLAFUERTE (Emergency Contact) [phone] Subjective Patient Findings Negatives: Signs/symptoms of thrombosis, [...] date communicated as noted by Pharmacist: Yes Nathan Crews head of maintenance 03/21/2023, 10:07 AM * Nancy Medrano RPh - 03/21/2023 8:34 AM EDT Coumadin Clinic (region specific) Objective Current Warfarin Dose As of 03/21/2023 Warfarin maintenance plan: 5 mg (5 mg x 1) every Sun, Darya; 2.5 mg (5 mg x 0.5) all other days INR Result As of 03/21/2023 INR goal: 2.0-3.0 INR used for dosin.3 (03/20/2023) Assessment & Plan Warfarin Plan As of 03/21/2023 Full warfarin instructions: 5 mg every Sun, Darya; 2.5 mg all other days No change documented: Nancy Medrano RPh Next INR check: 04/10/2023 Repeat PT/INR in 3 week(s) Weekly dose: not changed Additional Dosing Information: Description [facility] Tech to contact patient with dose instructions as noted. Nancy Medrano RPh 03/21/2023, 8:37 AM documented in this encounter Plan of Treatment Upcoming Encounters Date Type Specialty Care Team Description 04/10/2023 Laboratory Laboratory Processing [facility], [facility] Draw [address] [facility] [place] [address] 04/11/2023 [facility] [address] [facility] [address] 08/30/2023 Office Visit Internal Medicine Magy Segal MD [address] [facility], [place] [address] Scheduled Procedures Name Priority Associated Diagnoses Date/Ti [...] Additional history exists CKD HGB USE SMARTSET 51367 09/27/202209/27, 09/27/2021, 05/26/2021, Additional history exists CKD PHOS USE SMARTSET 28824 09/27/202209/13, 08/20/2020, 07/03/2019, Additional history exists GFR 02/26/2023 08/29/2022, 02/13, 09/27/2021, Additional history exists Influenza Vaccine (FLU shot) (#1) 2023 08/29/2022, 07/25/2021, 05/06/2020, Additional history exists HbA1c 04/24/2023 10/23/2022, 08/16, 09/27/2021, Additional history exists Depression Screening, Annual for Pts 12 and Over 08/29/2023 08/29/2022 Diabetic Foot Exam 02/23/2024 02/22/2023, [...] this encounter Medical Devices Implanted Type Area Machine Paint Mixer Device Identifier Shelf Expiration Date Model / Serial / Lot Sut Steel 6 M654g - [id number] Implanted:Qty: 4 on 09/22/2016 by Dejon Carlos MD at [place] [facility] [place] N/A: Sternum JNJ : [employer] 06/14/2021 [id number] / / [id number] documented as of this encounter Visit Diagnoses [...] the patient have Health Care Power of Lens Cementer? No Care Teams Pearl Glue Operator Relationship Specialty Start Date End Date Magy Segal MD [address] [place] [address], [place] [address] PCP - General Internal Medicine 08/08/19 documented as of this encounter
--- OUTSIDE RECORDS SUMMARY | 2023-07-28 21:47 | External Medical Summary | Summary of Care ---
Author Name Unknown Organization [facility] Address [address] [place] [address] Phone [phone] Care Team Providers Care Hairspring Assembler Name Role Phone Sven Segal MD Primary Care Provider + Reason for Visit * Reason Comments eRx-Medication Refill Encounter Details Date Type Department Care Team Description 03/30/2023 Refill General Internal Medicine [facility] [address] [facility] [place] [address] Sven Segal MD [address] [place] [address] Essential hypertension with goal blood pressure less than 140/90; 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 Allergies Active Allergy Reactions Severity Noted Date Comments Haseeb Inhibitors Cough 04/04/2010 documented as of this encounter (statuses as of 03/30/2023) Medications Medication Sig Dispensed Refills Start Date [...] 2 Active Additional Information Patient taking differently:2 [place] Each Nostril Daily(AM),As needed, Informant: Child, Reported on 08/29/2022 amLODIPine Besylate 2.5 MG Oral Tablet (Norvasc) TAKE ONE TABLET BY MOUTH DAILY 90 Tablet 3 2 Active Rosuvastatin Calcium 20 MG Oral Tablet (Crestor) TAKE ONE TABLET BY MOUTH DAILY 90 Tablet 3 2 Active Famotidine 20 MG Oral Tablet (Pepcid) [...] Oral Tablet (Jantoven)Indicati ons:Coronary artery disease involving [place] coronary artery of [place] heart without angina pectoris,S/P MVR (mitral valve replacement) TAKE ONE TABLET BY MOUTH DAILY or as directed by coag clinic 90 Tablet 3 3 Active Metoprolol Tartrate 25 MG Oral Tablet (Lopressor)Indicat ions:Essential hypertension with goal blood pressure less than 140/90,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 TAKE ONE TABLET BY MOUTH TWICE DAILY 180 Tablet 2 2 03/30/20 23 Discontinued documented as of this encounter (statuses as of 03/30/2023) Active Problems Problem Noted Date Diabetes mellitus [...] (NSTEMI) 07/20/2017 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 10/03/2016 [...] as of this encounter (statuses as of 03/30/2023) Resolved Problems Problem Noted Date Resolved Date [...] as of this encounter (statuses as of 03/30/2023) Immunizations Name Administration Dates Next Due COVID-19 mRNA, LNP-s, No Pre serve, 2-Dose Series (OpenFeint) 08/27/2021,09/22/2020,09/01/2020 Hepatitis B, 20+ yrs 09/12/2016 Pneumococcal [...] encounter Miscellaneous Notes * Telephone Encounter - Juan Alberto [facility] - 03/30/2023 4:58 PM EDTSigned Prescriptions: Disp Refills Metoprolol Tartrate 25 MG Oral Tablet (Lop*180 Ta*1 Sig: TAKE 1 TABLET BY MOUTH TWICE DAILYAuthorizing Provider: SVEN SEGAL User: JUAN ALBERTO HERNANDEZ documented in this encounter Plan of Treatment Upcoming Encounters Date Type Specialty Care Team Description 04/10/2023 Laboratory Laboratory Processing [facility] Mobile Home Draw [address] [place] [address] 04/11/2023 [facility] [address] [place] [address] 08/10/2023 Office Visit Cardiology Jayda Segura PA-C [address] [place] [address] 08/30/2023 Office Visit Internal Medicine Sven Segal MD [address] [place] [address] Scheduled Procedures Name Priority Associated Diagnoses Date/Ti [...] Additional history exists CKD HGB USE SMARTSET 44851 09/27/202209/27, 09/27/2021, 05/26/2021, Additional history exists CKD PHOS USE SMARTSET 51764 09/27/202209/13, 08/20/2020, 07/03/2019, Additional history exists GFR [...] this encounter Medical Devices Implanted Type Area Oxygen Equipment Aide Device Identifier Shelf Expiration Date Model / Serial / Lot Shaun Collado 6 M654g - [id number] Implanted:Qty: 4 on 09/22/2016 by Dejon Carlos MD [place] [facility] [place] N/A: Sternum JNJ : [employer] 06/14/2021 [id number] / / [id number] documented as of this encounter Visit Diagnoses Diagnosis Essential hypertension with goal blood pressure less than 140/90 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 documented in this encounter Advance Directives Latest Code Status on File Code Status Date Activated Date Inactivated Comments Full Code 09/22/2016 12:20 PM 09/28/2016 3:42 PM This order reflects the patients wishes and were consensually agreed upon. Question Answer Comments Discussion of Advance Directives occurred with: Patient Does the patient have a Living Will? No Does the patient have Health Care Power of Top Loader? No Care Teams Hairspring Assembler Relationship Specialty Start Date End Date Sven Segal MD [address] [place] [address] PCP - General Internal Medicine 08/08/19 documented as of this encounter
--- OUTSIDE RECORDS SUMMARY | 2023-07-28 21:47 | External Medical Summary | Summary of Care ---
Author Name Unknown Organization [facility] Address [address] [place] [address] Phone [phone] Care Team Providers Care Brick Catcher Name Role Phone Magy Segal MD Primary Care Provider + Reason for Visit * Reason Comments Re-Check Encounter Details Date Type Department Care Team Description 02/22/2023 Office Visit General Internal Medicine [facility] [address] [facility] [address] Magy Segal MD [address] [place] [address] Type 2 diabetes mellitus with hemoglobin A1c goal of less than 7.5% ([facility])*; DM type 2 nursing care encounter ([facility]); HTN, goal below 140/90; S/P CABG x 2; High risk for fracture due to osteoporosis by DEXA scan; Coronary artery disease involving [place] coronary artery of [place] heart without angina pectoris; 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; S/P MVR (mitral valve replacement); Dyslipidemia, goal LDL below 70; Screening for deficiency anemia; Stage 3a chronic kidney disease (HCC) Allergies Active Allergy Reactions Severity Noted Date Comments Haseeb Inhibitors Cough 04/04/2010 documented as of this encounter (statuses as of 02/22/2023) Medications Medication Sig Dispensed Refills Start Date End Date Status aspirin 81 MG chewable tablet Take 1 Tab by mouth daily. 30 Tab 3 09/28/2016 Active Blood Glucose Monitoring Suppl (Cashback ChintaiTOUCH VERIO) w/Device KITIndications:Type 2 diabetes mellitus with hemoglobin A1c goal of less than 7.5% (HCC) Ck FS daily E11.9 1 Kit 0 02/26/2019 Active OneTouch Marcia Lancets 33GIndications:Type 2 diabetes mellitus with hemoglobin A1c goal of less than 7.5% ([facility]) Test blood sugar once daily 100 Each 3 06/15/2020 Active OneTouch Verio In Vitro Strip (Glucose Blood)Indications:Ty pe 2 diabetes mellitus with hemoglobin A1c goal of less than 7.5% ([facility]) Test blood sugar once daily 100 Strip 3 07/21/2020 Active Fluticasone Propionate 50 MCG/ACT Nasal SuspensionIndication s:Bronchitis, complicated Administer into each nostril 2 Sprays in the morning. 9.9 mL 2 08/30/2021 Active Additional Information Patient taking differently:2 Baudette Each Nostril Daily(AM),As needed, Informant: Child, Reported [...] as of this encounter (statuses as of 02/22/2023) Active Problems Problem Noted Date Diabetes mellitus [...] 2 10/27/2016 custodial current use of 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 t herapy 10/03/2016 Overview: ICD-10 update of inactive term S/P MVR (mitral valve replacement) 09/28 Overview: Bioprosthetic 29mm epic valve Coronary artery disease invo lving [place] coronary artery of [place] heart without angina pectoris 09/12/2016 Overview: 80% [...] as of this encounter (statuses as of 02/22/2023) Resolved Problems Problem Noted Date Resolved Date [...] as of this encounter (statuses as of 02/22/2023) Immunizations Name Administration Dates Next Due COVID-19 mRNA, LNP-s, No Pre serve, 2-Dose Series (MDSave) 08/27/2021,09/22/2020,09/01/2020 Hepatitis B, 20+ yrs 09/12/2016 Pneumococcal [...] Sign Reading Time Taken Comments Blood Pressure 112/76 02/22/2023 3:17 PM EDT Pulse 68 02/22/2023 3:17 PM EDT Temperature 35.3 C (95.5 F) 02/22/2023 3:17 PM ED T Respiratory Rate 16 02/22/2023 3:17 PM EDT Oxygen Saturation 95% 02/22/2023 3:17 PM EDT Inhaled Oxygen Concentration - - Weight 59.3 kg (130 lb 12.8 oz) 02/22/2023 3:17 PM EDT Height - - Body Mass Index 24.71 08/29/2022 12:52 PM EST documented in this [...] No 09/22/2016 documented as of this encounter Patient Instructions * Patient Instructions* Laura Dodson LPN - 02/22/2023 3:19 PM EDT Diabetes: Keeping Feet Healthy Inspect your feet every day for signs of a problem. Diabetes can damage nerves in your feet and cause neuropathy. This condition makes it hard for you to feel injuries or sore spots. Diabetes can also change blood flow, making it harder for small problems, like a blister, to heal properly. In fact, minor injuries can quickly become serious infections that send you to the hospital. Practice self-care to protect your feet and keep them healthy. Take Special Care Inspect your feet daily for problems such as redness, blisters, cracks, dry skin, or numbness. Use a mirror to see the bottoms of your feet. Or, ask for help. Manage your diabetes. Monitor and control your blood sugar. Take all your medications as prescribed. Avoid walking barefoot, even indoors. Wash your feet with warm water and mild soap. Dry well, especially between toes. Dont treat corns or calluses yourself. Talk to your doctor or pulp piler (a doctor who specializes in foot care) if you need assistance trimming your toenails. Use moisturizing cream or lotion if you have dry skin, but dont use it between toes. Dont use heating pads on your feet. If you have neuropathy, you could get a burn and not feel it. Stop smoking. Smoking restricts blood flow and can make it harder for wounds to heal. Have Regular Checkups Foot problems can develop quickly. So be sure to follow your healthcare teams schedule for regular checkups. During office visits, take off your shoes and socks as soon as you get in the exam room. Ask your healthcare provider to examine your feet for problems. This will make it easier to find and treat small skin irritations before they get worse. Regular checkups can also help keep track of the blood flow and feeling in your feet. If you have neuropathy, you may need to have checkups more often. Wear Proper Footwear Wearing proper footwear is very important. If areas of your feet have been damaged by too much pressure, your healthcare provider may recommend changing your footwear. In some cases, avoiding high heels or tight work boots may be all thats needed. Or, your healthcare provider may recommend special shoes or custom inserts. These help protect your feet and keep existing irritations from getting worse. If you need special footwear, ask your healthcare provider if you qualify for [employer] diabetic shoe program. Make Sure Shoes and Socks Fit Any pair of shoes--new or old--should feel comfortable as soon as you put them on. There shouldnt be any rubbing when you walk. Wear the right shoe for any activity. For instance, a running shoe is designed to keep your feet injury-free while jogging. Buy shoes at the end of the day, when your feet are larger. Make sure they provide support without feeling too loose. Make sure your socks fit, t oo. Wear soft, seamless, well-padded socks for activity. Cotton or microfiber socks are best to help to absorb sweat. To protect your feet, avoid shoes that are open-toed or open-heeled. If you have questions about what kinds of shoes and socks are best, talk to your healthcare team. Get Regular Exercise Regular exercise improves blood flow in your feet. It also increases foot strength and flexibility.Gentle exercises, like walking or riding a stationary bicycle, are best. You can also do special foot exercises. Just be sure to talk with your healthcare provider before starting any exercise program. Also mention if any exercise causes pain, redness, or other signs of foot problems. Note: If you have any kind of break in the skin of your foot or ankle, keep the area clean. Then call your doctor--especially if the area doesnt appear to be healing. [id number] [employer], [address] [place] [address]. All rights reserved. This information is not intended as a substitute for professional medical care. Always follow your healthcare professional's instructions. documented in this encounter Progress Notes * Magy Segal MD - 02/22/2023 3:31 PM EDT HPI: Ya Dejesus is a 82 year old female with medical problems as listed below who presents with: Chief Complaint Patient presents with Re-Check Patient is here for the recheck. Chart reviewed with the patient including current meds, last labs and HM. No acute event since we saw patient last time including no recent fall or injuries. Hemoglobin AIC Results: Lab Results Component Value Date/Time HEMOGLOBIN A1C - [facility] 7.8 (H) 10/23/2022 07:42 AM HEMOGLOBIN A1C - [facility] 7.5 (H) 08/29/2022 01:43 PM HEMOGLOBIN A1C - [facility] 6.4 (H) 09/27/2021 07:21 AM HEMOGLOBIN A1C - [facility] 6.4 (H) 02/09/2020 09:14 AM HEMOGLOBIN A1C - [facility] 6.8 (H) 07/03/2019 01:16 PM HEMOGLOBIN A1C - [facility] 9.3 (H) 01/24/2019 11:11 AM Discussed diet,start of low dose of glipizide 5 mg daily with food. Discussed repeat labs in 3 months. Denies any chestpain/sob/palpitation/swealling in the legs. Denies any cough/sob/wheezing/chestpain. Patient Active Problem List Diagnosis Code Family history of colon cancer Z80.0 hx of hypercalcemia on supplemnts, to be off calcium supp Dyslipidemia, goal LDL below 70 E78.5 ADVANCE DIRECTIVE INFORMATION Asymmetric septal hypertrophy ([facility]) I42.2 Kidney disease, chronic, stage III (GFR 30-59 ml/min) ([facility]) N18.30 Type 2 diabetes mellitus with hemoglobin A1c goal of less than 7.5% (HCC) E11.9 Essential hypertension with goal blood pressure less than 140/90 I10 Coronary artery disease involving [place] coronary artery of [place] heart without angina pectoris I25.10 Pulmonary hypertension ([facility]) I27.20 S/P MVR (mitral valve replacement) 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 Z79.01 S/P CABG x 2 Z95.1 History of non-ST elevation myocardial infarction (NSTEMI) I25.2 Hx of actinic keratosis Z87.2 HTN, goal below 140/90 I10 High risk for fracture due to osteoporosis by DEXA scan M81.0 Aortic atherosclerosis ([facility]) I70.0 Risk and functional assessment Z13.9 Status post insertion of drug eluting coronary artery stent Z95.5 Partial idiopathic epilepsy with seizures of localized onset, not intractable, with status epilepticus ([facility]) G40.001 Bioprosthetic mitral valve replacement, current hospitalization Z95.3 Type 2 diabetes mellitus with stage 3a chronic kidney disease ([facility]) E11.22, N18.31 Diabetes mellitus due to underlying condition with stage 3a chronic kidney disease ([facility]) E08.22, N18.31 PSVT (paroxysmal supraventricular tachycardia) ([facility]) I47.1 Chronic kidney disease, stage 3a ([facility]) N18.31 Diabetes mellitus due to underlying condition with stage 3 chronic kidney disease, without long-term current use of insulin ([facility]) E08.22, N18.30 Bronchitis, complicated J40 Iron deficiency anemia D50.9 Current Outpatient Medications Medication Sig Dispense Refill aspirin 81 MG chewable tablet Take 1 Tab by mouth daily. 30 Tab 3 Blood Glucose Monitoring Suppl (Moxie JeanUCH VERIO) w/Device KIT Ck FS daily E11.9 1 Kit 0 Savosolar Delica Lancets 33G Test blood sugar once daily 100 Each 3 TwoChopuch Verio In Vitro Strip (Glucose Blood) Test blood sugar once daily 100 Strip 3 Fluticasone Propionate 50 MCG/ACT Nasal Suspension Administer into each nostril 2 Sprays in themorning. (Patient taking differently: Administer 2 Sprays into each nostril in the morning. As needed.) 9.9 mL 2 amLODIPine Besylate 2.5 MG Oral Tablet (Norvasc) TAKE ONE TABLET BY MOUTH DAILY 90 Tablet 3 Metoprolol Tartrate 25 MG Oral Tablet (Lopressor) TAKE ONE TABLET BY MOUTH TWICE DAILY 180 Tablet 2 Rosuvastatin Calcium 20 MG Oral Tablet (Crestor) TAKE ONE TABLET BY MOUTH DAILY 90 Tablet 3 Warfarin Sodium 5 MG Oral Tablet (Jantoven) TAKE ONE TABLET BY MOUTH DAILY or as directed by coag clinic Strength: 5 mg 90 Tablet 1 Famotidine 20 MG Oral Tablet (Pepcid) Take 1 Tablet by mouth in the morning and 1 Tablet beforebedtime. 180 Tablet 1 Zoster Vac Recomb Adjuvanted 50 MCG/0.5ML Intramuscular Suspension Reconstituted (Shingrix) Inject 0.5 mL into a large muscle now and repeat dose in 60 to 180 days 1 Each 1 Losartan Potassium 50 MG Oral Tablet (Cozaar) TAKE ONE AND ONE-HALF TABLET BY MOUTH DAILY 135 Tablet 1 No current facility-administered medications for this visit. The patient's medication list was reviewed and updated as needed. Review of patient's allergies indicates: Allergen Reactions Haseeb Inhibitors Cough Past Medical History: Diagnosis Date Dyslipidemia, goal to be determined History of non-ST elevation myocardial infarction (NSTEMI) 07/20/2017 HTN, goal below 140/90 Hypertr obst cardiomyop Impaired fasting glucose Mitral valve replaced 29mm epic bioprosthetic valve NSTEMI (non-ST elevated myocardial infarction) (HCC) S/P CABG x 2 09/22/2016 Status post insertion of drug eluting coronary artery stent 03/11/2019 Type 2 diabetes mellitus with HbA1C goal below 7.5 Social History Socioeconomic History Marital status: Occupational History Occupation: [employer] 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 [employer] Tobacco Use Smoking status: Never Smokeless tobacco: Never Vaping Use Vaping Use: Never used Substance and Sexual Activity Alcohol use: No Drug use: No Sexual activity: Never Partners: Male Comment: esoph cancer 01/01/09 Social History Narrative PE 07/02/02 LABS: 12/14 glu 86 chol 186 283 60 69 k 4.2 05/16 chol 222 480 53 11/14 chol 189 189 49 102 09/15 chol 206 178 53 117 Ca 10.8 glu 90 CXR: EKG: PAP: MAMMO: HEMMO: DEXA: Family History Problem Relation Age of Onset Heart Disorder Father 42 MD Heart Disorder Brother 50 MD Colon cancer Brother Breast Cancer Sister 72 Breast Cancer Niece 40 bilateral mastectomy All system negative except as per hpi. OBJECTIVE: BP 112/76 | Pulse 68 | Temp 35.3 C (95.5 F) (Tympanic) | Resp 16 | Wt 59.3 kg (130 lb 12.8 oz) | LMP 10/15/1975 | SpO2 95% | BMI 24.71 kg/m | BSA 1.6 m PHYSICAL EXAM: HEENT: PERRLA, EOMI, anicteric sclera, b/l tympanic membrane is pearly white, no erythema, no pharyngeal erythema, no lymphadenopathy, neck supple CVS: RRR, no murmurs, rubs or gallops, s1 s 2normal. RESP: clear to auscultation, no wheezing or crackles ABD: soft, NT/ND EXT: no edema, cyanosis, peripheral pulses palpable bilaterally No large joint swelling, no redness, range of motion normal. Skin normal. Gait normal. Mood stable No focal weakness ASSESSMENT AND PLAN: Type 2 diabetes mellitus with hemoglobin A1c goal of less than 7.5% ([facility]) (Primary) - HEMOGLOBIN A1C; Future; Expected date: 02/22/2023 - COMPREHENSIVE METABOLIC PANEL; Future; Expected date: 02/22/2023 - ALBUMIN / CREATININE RATIO, URINE; Future; Expected date: 02/22/2023 DM type 2 nursing care encounter ([facility]) - DIABETES FOOT EXAM HTN, goal below 140/90 S/P CABG x 2 High risk for fracture due to osteoporosis by DEXA scan Coronary artery disease involving [place] coronary artery of [place] heart without angina pectoris 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 30 minutes before a meal. Magy Segal MD * Laura Dodson LPN - 02/22/2023 3:19 PM EDT DM Foot Exam completed today. Provider aware. Laura Dodson LPN Socks and Shoes Removed for Annual Diabetic Foot Screening RIGHT FOOT: No Reddened, Cracking, Or Open Areas Noted. RIGHT Dorsalis Pedis Pulse: Palpable RIGHT Posterior Tibial Pulse: Palpable RIGHT Monofilament:Patient reports feeling monofilament pressure on plantar surface of foot LEFT FOOT: No Reddened, Cracking or Open Areas Noted. LEFT Dorsalis Pedis Pulse: Palpable LEFT Posterior Tibial Pulse: Palpable LEFT Monofilament:Patient reports feeling monofilament pressure on plantar surface of foot Do you need diabetic shoes: No documented in this encounter Nursing Notes * Luara Dodson LPN - 02/22/2023 3:14 PM EDT Ya Dejesus presents for 6 month recheck. Medications & HM reviewed. Denies any concerns at this time documented in this encounter Plan of Treatment Upcoming Encounters Date Type Specialty Care Team Description 02/26/2023 Laboratory Laboratory Processing [facility] Draw [address] [place] [address] 02/27/2023 [facility] [address] [place] [address] 08/30/2023 Office Visit Internal Medicine Magy Segal MD [address] [place] [address] Scheduled Orders Name Type Priority Associated Diagnoses Orde r Schedule HEMOGLOBIN A1C Lab Routine Type 2 diabetes mellitus with hemoglobin A1c goal of less than 7.5% (HCC) Expected: 02/22/2023 (Approximate), Expires: 02/22/2024 COMPREHENSIVE METABOLIC PANEL Lab Routine Type 2 diabetes mellitus with hemoglobin A1c goal of less than 7.5% (HCC) Expected: 02/22/2023 (Approximate), Expires: 02/22/2024 CBC WITH WBC DIFFERENTIAL Lab Routine Screening for deficiency anemia Expected: 02/22/2023 (Approximate), Expires: 02/23/2024 PHOSPHORUS Lab Routine Stage 3a chronic kidney disease (HCC) Expected: 02/22/2023 (Approximate), Expires: 02/22/2024 LDL CHOLESTEROL (DIRECT MEASURE) Lab Routine Dyslipidemia, goal LDL below 70 Expected: 02/22/2023 (Approximate), Expires: 02/22/2024 ALBUMIN / CREATININE RATIO, URINE Lab Routine Type 2 diabetes mellitus with hemoglobin A1c goal of less than 7.5% (HCC) Expected: 02/22/2023 (Approximate), Expires: 02/22/2024 Scheduled Procedures Name Priority Associated Diagnoses Date/Ti [...] Additional history exists CKD HGB USE SMARTSET 86240 09/27/202209/27, 09/27/2021, 05/26/2021, Additional history exists CKD PHOS USE SMARTSET 27934 09/27/202209/13, 08/20/2020, 07/03/2019, Additional history exists GFR [...] this encounter Medical Devices Implanted Type Area Butane 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 Operator Device Identifier Shelf Expiration Date Model / Serial / Lot Sut Tobias 6 [id number] - [id number] Implanted:Qty: 4 on 09/22/2016 by Dejon Carlos MD at OR [facility] N/A: Sternum RELL : [employer] 06/14/2021 [id number] / / [id number] documented as of this encounter Visit Diagnoses Diagnosis Type 2 diabetes mellitus with hemoglobin A1c goal of less than 7.5% (HCC)- Primary DM type 2 nursing care encounter (HCC) Type II or unspecified type diabetes mellitus without mention of complication, not stated as uncontrolled HTN, goal below 140/90 Unspecified essential hypertension S/P CABG x 2 Postsurgical aortocoronary bypass status High risk for fracture due to osteoporosis by DEXA scan Osteoporosis, unspecified Coronary artery disease involving [place] coronary artery of [place] heart without angina pectoris 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 Question Answer Comments Discussion of Advance Directives occurred with: Patient Does the patient have a Living Will? No Does the patient have Health Care Power of Rheumatology Specialist? No Care Teams Brick Catcher Relationship Specialty Start Date End Date Magy Segal MD [address] [place] [address] PCP - General Internal Medicine 08/08/19 documented as of this encounter"
[2023-07-28] MEDS ORDERED: ONDANSETRON INJ 2 MG/ML 2 ML VIAL IV STA (21:54)
[2023-07-28] MEDS ORDERED: SODIUM CHLORIDE 0.9% 1,000 ML IV SCH (22:00)
[2023-07-28] MEDS ORDERED: SODIUM CHLORIDE 0.9% 500 ML IV SCH (22:00)
--- NOTE | 2023-07-28 22:20 | XRay Report ---
SINGLE VIEW CHEST CLINICAL HISTORY: Generalized weakness. FINDINGS: An AP, portable, upright chest radiograph is compared to study dated 05/11/2020. The patien t is status post midline sternotomy. The heart is enlarged denoting atherosclerotic calcification of the thoracic aorta. The pulmonary vasculature is noncongested. Chronic interstitial thickening is sim ilar to previous. Calcific granulomas are noted in the left upper lobe. There is bibasilar scarring/a telectasis. The lungs and pleural spaces are otherwise clear. No pneumothorax is seen. The skeletal s tructures are osteopenic. The bony thorax is grossly intact. IMPRESSION: Moderate cardiomegaly with no active disease in the chest. ACT 112: Negative or not required by law. Electronically signed by: Zoltan Morgan M.D. 07/28/2023 10:19 PM
[2023-07-28 22:31] LABS: Basophils # (auto) 0.04 K/uL (0.00-0.20); Basophils % (auto) 0.2 %; Eosinophils # (auto) 0.27 K/uL (0.00-0.50); Eosinophils % (auto) 1.6 %; Hematocrit (blood only) 43.6 % (37.0-47.0); Hemoglobin 14.5 g/dl (12.0-16.0); Immature Granulocytes # (auto) 0.06 K/uL (0.01-0.20); Immature Granulocytes % (auto) 0.4 %; Lymphocytes # (auto) 0.65 K/uL (1.20-3.40); Lymphocytes % (auto) 3.9 %; Mean Corpuscular Hemoglobin 28.7 pg (25.0-34.0); Mean Corpuscular Hgb Conc 33.3 g/dL (32.0-36.0); Mean Corpuscular Volume 86.2 fL (80.0-100.0); Mean Platelet Volume 11.1 fL (9.4-12.4); Monocytes # (auto) 0.91 K/uL (0.11-0.59); Monocytes % (auto) 5.4 %; Neutrophils % (auto) 88.5 %; Platelet Count 249 K/uL (130-400); RDW Coefficient of Variation 15.6 % (11.5-14.5); RDW Standard Deviation 49.2 fL (36.4-46.3); Red Blood Count 5.06 M/uL (4.20-5.40); White Blood Count 16.73 K/ul (4.8-10.8)
[2023-07-28 22:45] LABS: Alanine Aminotransferase 19 U/L (7-52); Albumin Globulin Ratio 1.2 (0.9-2); Albumin Level 4.2 gm/dl (3.4-5.0); Alkaline Phosphatase 100 U/L (34-104); Anion Gap 9 (3-11); Aspartate Aminotransferase 19 U/L (13-39); BUN Creatinine Ratio 16.8 (10-20); Bilirubin,Total 0.5 mg/dl (0.2-1.0); Blood Urea Nitrogen 22 mg/dl (6-23); Calcium 9.2 mg/dl (8.6-10.3); Carbon Dioxide 24 mmol/L (21-32); Chloride 105 mmol/L (98-107); Est GFR (African American) 44.1 ml/min; Est GFR (Non-African American) 38.1 ml/min; Globulin 3.5 gm/dl (2.5-4.0); Glucose 186 mg/dl (70-99(Fasting)); Lipase 26 U/L (11-82); Magnesium 2.1 mg/dl (1.7-2.4); Potassium 4.5 mmol/L (3.5-5.1); Sodium 138 mmol/L (136-145); Total Protein 7.7 gm/dl (6.0-8.3)
[2023-07-28 22:52] LABS: Troponin I High Sensitivity 22.8 pg/ml (0-14)
[2023-07-28 23:02] LABS: Thyroid Stimulating Hormone 2.769 uIu/ml (0.300-4.500)
[2023-07-28] MEDS ORDERED: OPTIRAY 320 500ml IV ONE (23:04)
--- NOTE | 2023-07-28 23:07 | Emergency Department Note ---
Impression & Plan Generalized weakness, Vomiting, Elevated troponin ED Provider Note NAME: PATRICIA MC AGE: 82 SEX: Female INFORMANT: Patient and family ED PROVIDER(S): Kilo Membreno MD CHIEF COMPLAINT: Weakness PLAN: Disposition: Admitted Outpatient prescription management: none Referral: None MEDICAL DECISION MAKING: Patient presented because of vomiting and weakness. She had laboratory testing performed. Patient was given Zofran and saline hydration. She was found to have a moderate leukocytosis. Urinalysis ordered but is pending. Patient's cardiac troponin was mildly elevated and repeat was similar. Patient had an ECG performed. She did have anterolateral T wave inversion with LVH and a left anterior fascicular block. When compared to her prior ECG of 2019 the changes were more pronounced. CT imaging of the abdomen pelvis was performed and did not reveal any acute pathology. Given the patient's symptoms, elevated troponin, minor ECG changes further management in the hospital was deemed appropriate. Family in agreement as was patient. [facility] Patient was evaluated in the ER and admitted for further management Care/management discussed with: Discussed with microsoft dynamics manager architect Level of care consideration(s): After review of the information above and other included data, I feel the patient requires escalation of care to admission Triage Nursing notes: reviewed and agree them. Vital Signs: reviewed and remarkable for no significant abnormalities Additional History obtained from: Patient's family regarding her mental status and recent events. Chronic Medical/Social Conditions affecting care: CAD CVA Prior/ Outside/ External records reviewed: none Differential Diagnosis: Infection, dehydration, metabolic abnormality, hypo/hyperglycemia, electrolyte disturbance, anemia, hypoxia, cardiac sources, intracerebral event, toxicologic, neurologic, as well as other pathologies. Diagnostics, independently interpreted by me: ECG: Twelve-lead ECG reveals a normal sinus rhythm at 80 bpm. Left anterior fascicular block. LVH. Lateral T wave inversion present. T wave version noted in V2. When compared to 11 May 2020 the changes in the T waves are more pronounced and anteriorly are new. Cardiac Monitoring: Cardiac monitoring ordered by me: The patient was placed on continuous cardiac monitoring and observed. It revealed a normal sinus rhythm at 75 beats per minute without ectopy or evidence of dysrhythmia. Medical decision rules: none Imaging studies: Chest x-ray shows some cardiomegaly but no evidence of pneumonia or pneumothorax. CT imaging of the abdomen pelvis is negative for obstruction or free air. No diverticulitis. I refer you to the EMR for further details. HPI: 82 year old Female arrives for evaluation of generalized weakness. Patient reportedly was in stable health this week. She had lost her appetite prior to dinner and did not eat. Family checked on her and noted that she had an episode of vomiting. Patient was very weak at that time and could not walk. EMS was summoned. Patient did improve somewhat and was able to walk to the litter. Patient notes some mild nausea now. Denies any pain. Family is present and helps with history as the patient does have some memory deficits secondary to an old stroke. Patient has been at baseline and currently is at baseline per the daughter. Patient is anticoagulated. Pt denies LOC, headache, fevers, chills, visual changes, neck pain, chest pain, breathing difficulties, abdominal pain, back pain, melena, hematochezia, urinary symptoms, numbness, or other complaints. PAST MEDICAL HISTORY: See Below, stroke, anticoagulation, hypertension PAST SURGICAL HISTORY: See Below, SOCIAL HISTORY: See Below, lives with family HOME MEDICATIONS: See Below ALLERGIES: See Below VITALS: See Below PHYSICAL EXAMINATION: GENERAL: Awake, alert, uncomfortable-appearing, in no distress HENT: Normocephalic, atraumatic. Oropharynx unremarkable. EYES: Normal conjunctiva. Sclera non-icteric. NECK: Inspection normal. Non-tender. Supple. No nuchal rigidity. FROM. No masses. RESPIRATORY: Clear to auscultation. No wheezes. No rales. Normal respiratory effort. CARDIAC: Normal rate. Normal rhythm. No murmurs. No rubs. Extremities warm and well perfused. Pulses equal. No JVD. GI: Soft, non-distended. No tenderness to palpation. No rebound or guarding. No masses. RECTAL: Deferred. MUSCULOSKELETAL: Atraumatic. Chest examination reveals no tenderness. The back is symmetrical on inspection without obvious abnormality. There is no CVA tenderness to palpation. No joint edema. LOWER EXTREMITIES: Calves are equal size bilaterally and non-tender. No edema. No discoloration. NEURO: Normal sensorium. No sensory or motor deficits noted. SKIN: No rash or jaundice noted. PROCEDURES: none CRITICAL CARE: none OBSERVATION NOTE: none Past Med/Surg History Medical History CAD (coronary artery disease) CKD (chronic kidney disease), stage III Diabetes mellitus, type II NIDDM Dyslipidemia Essential hypertension History of non-ST elevation myocardial infarction (NSTEMI) 2017 On 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 therapy warfarin daily Osteoporosis Pulmonary hypertension Surgical History History of cardiac cath x2--02/2019 @ [facility] with 1 stent placement 2017 @ [facility] no stents, had CABG History of colonoscopy History of elbow surgery History of heart artery stent (~02/2019) 1 stent placed History of surgery on right wrist History of tonsillectomy and adenoidectomy History of transesophageal echocardiography (RODRIGO) (~07/23/19) S/P appendectomy S/P CABG x 2 2016 FOLLOW WITH [facility] S/P cataract surgery S/P hysterectomy S/P MVR (mitral valve replacement) (~2016) Family History Father Heart disease Mother Heart disease Stroke Brother Cancer Other No family history of adverse response to anesthesia No significant family history Social History Smoking Status: Never smoker Second Hand Exposure: No; Do You Dip or Chew Tobacco: No; Hx Alcohol Use: No Hx Substance Use: No Preferred Language: Samoan Communication Ability: Effective Netbackup Engineer Required: No Beliefs That Will Affect Care: None marital status: / Current Living Situation: Family Current Living Situation Comment: lives with daughter and son in law Feels Safe at Home: Yes Assistive Devices: Denture - Upper and Denture - Lower Allergies Allergies Allergy/AdvReac Type Severity Reaction Status Date / Time YAHIR Inhibitors AdvReac Intermediate Cough Verified 07/28/23 23:02 lisinopril AdvReac Intermediate COUGHING Verified 07/28/23 23:02 Home Meds Home Medications Medication Instructions Recorded Confirmed metoprolol tartrate 25 mg tablet 25 mg PO BID 03/10/19 07/28/23 famotidine 20 mg tablet 20 mg PO BID 05/11/20 07/28/23 fluticasone propionate 50 2 spray intranasal DAILY PRN Nasal 05/11/20 07/28/23 mcg/actuation nasal Congestion spray,suspension (Flonase Allergy Relief) losartan 50 mg tablet (Cozaar) 75 mg PO QAM 05/11/20 07/28/23 amlodipine 2.5 mg tablet 2.5 mg PO QAM 06/16/21 07/28/23 rosuvastatin 20 mg tablet (Crestor) 20 mg PO HS 06/16/21 07/28/23 warfarin 5 mg tablet See Rx Instructions .Route .COMPLEX 06/16/21 07/28/23 glipizide 5 mg tablet 5 mg PO DAILYBB 07/28/23 07/28/23 Previous Rx's Medication Instructions Recorded aspirin 81 mg tablet,delayed 81 mg PO QAM 30 days #30 tabs 05/13/20 release (Toi Low Dose Aspirin) Results & Data (ED) Vital Signs Vital Signs - 24 hr 07/28/23 21:43 07/28/23 21:43 07/28/23 21:43 Temperature 36.5 C Temperature Source Oral Pulse Rate 88 89 Pulse Rate from SpO2 Sensor Respiratory Rate 14 Respiratory Effort / Characteristics Non-Labored Spontaneous Respiratory Depth Normal Blood Pressure Blood Pressure [Right Arm] Blood Pressure Mean Blood Pressure Mean [Right Arm] Pulse Oximetry 95 94 Oxygen Delivery Method Room Air Room Air Sepsis New/Unexplained Change in Mental Status No Sepsis Action Taken by Nursing No Action Required 07/28/23 21:43 07/28/23 21:44 07/28/23 21:52 Temperature Temperature Source Pulse Rate 88 87 Pulse Rate from SpO2 Sensor 88 87 Respiratory Rate 23 18 Respiratory Effort / Characteristics Non-Labored Spontaneous Respiratory Depth Normal Blood Pressure Blood Pressure [Right Arm] Blood Pressure Mean Blood Pressure Mean [Right Arm] Pulse Oximetry 94 95 Oxygen Delivery Method Sepsis New/Unexplained Change in Mental Status Sepsis Action Taken by Nursing 07/28/23 21:53 07/28/23 21:54 07/28/23 22:00 Temperature Temperature Source Pulse Rate 84 Pulse Rate from SpO2 Sensor 85 Respiratory Rate 20 Respiratory Effort / Characteristics Respiratory Depth Blood Pressure 142/75 H Blood Pressure [Right Arm] 142/75 H Blood Pressure Mean 97 Blood Pressure Mean [Right Arm] 97 Pulse Oximetry 98 95 Oxygen Delivery Method Room Air Sepsis New/Unexplained Change in Mental Status Sepsis Action Taken by Nursing 07/28/23 22:02 07/28/23 22:30 07/28/23 23:17 Temperature Temperature Source Pulse Rate 84 84 79 Pulse Rate from SpO2 Sensor 84 83 Respiratory Rate 23 24 13 Respiratory Effort / Characteristics Respiratory Depth Blood Pressure 145/75 H 136/74 Blood Pressure [Right Arm] Blood Pressure Mean 98 94 Blood Pressure Mean [Right Arm] Pulse Oximetry 95 95 Oxygen Delivery Method Sepsis New/Unexplained Change in Mental Status Sepsis Action Taken by Nursing 07/28/23 23:18 07/28/23 23:30 07/29/23 00:00 Temperature Temperature Source Pulse Rate 78 83 84 Pulse Rate from SpO2 Sensor 80 83 Respiratory Rate 19 22 22 Respiratory Effort / Characteristics Respiratory Depth Blood Pressure 122/49 L 129/65 115/66 Blood Pressure [Right Arm] Blood Pressure Mean 73 86 82 Blood Pressure Mean [Right Arm] Pulse Oximetry 95 100 Oxygen Delivery Method Sepsis New/Unexplained Change in Mental Status Sepsis Action Taken by Nursing 07/29/23 00:30 07/29/23 01:00 07/29/23 01:30 Temperature Temperature Source Pulse Rate 82 83 83 Pulse Rate from SpO2 Sensor 83 Respiratory Rate 22 21 21 Respiratory Effort / Characteristics Respiratory Depth Blood Pressure 132/65 114/67 125/65 Blood Pressure [Right Arm] Blood Pressure Mean 87 82 85 Blood Pressure Mean [Right Arm] Pulse Oximetry 94 Oxygen Delivery Method Sepsis New/Unexplained Change in Mental Status Sepsis Action Taken by Nursing 07/29/23 01:46 Temperature Temperature Source Pulse Rate 82 Pulse Rate from SpO2 Sensor Respiratory Rate Respiratory Effort / Characteristics Respiratory Depth Blood Pressure Blood Pressure [Right Arm] Blood Pressure Mean Blood Pressure Mean [Right Arm] Pulse Oximetry Oxygen Delivery Method Sepsis New/Unexplained Change in Mental Status Sepsis Action Taken by Nursing Laboratory Data 07/29/23 02:26 07/28/23 21:50 Lab Results 07/28/23 07/28/23 07/28/23 Range/Units 21:50 21:50 21:50 WBC 16.73 H (4.8-10.8) K/ul RBC 5.06 (4.20-5.40) M/uL Hgb 14.5 (12.0-16.0) g/dl Hct 43.6 (37.0-47.0) % MCV 86.2 (80.0-100.0) fL MCH 28.7 (25.0-34.0) pg MCHC 33.3 (32.0-36.0) g/dL RDW Std Deviation 49.2 H (36.4-46.3) fL RDW Coeff of Matt 15.6 H (11.5-14.5) % Plt Count 249 (130-400) K/uL MPV 11.1 (9.4-12.4) fL Immature Gran % (Auto) 0.4 % Neut % (Auto) 88.5 % Lymph % (Auto) 3.9 % [place] % (Auto) 5.4 % Eos % (Auto) 1.6 % Baso % (Auto) 0.2 % Neut # (Auto) 14.80 H (1.40-6.50) K/uL Lymph # (Auto) 0.65 L (1.20-3.40) K/uL Roosevelt # (Auto) 0.91 H (0.11-0.59) K/uL Eos # (Auto) 0.27 (0.00-0.50) K/uL Baso # (Auto) 0.04 (0.00-0.20) K/uL Immature Gran # (Auto) 0.06 (0.01-0.20) K/uL PT 52.9 H (9.0-12.0) Seconds INR 5.4 H (0.9-1.1) Sodium 138 (136-145) mmol/L Potassium 4.5 (3.5-5.1) mmol/L Chloride 105 (98-107) mmol/L Carbon Dioxide 24 (21-32) mmol/L Anion Gap 9 (3-11) BUN 22 (6-23) mg/dl Creatinine 1.31 H (0.6-1.2) mg/dl Est Cr Clr Drug Dosing Not Reportable Est GFR ( Amer) 44.1 ml/min Est GFR (Non-Af Amer) 38.1 ml/min BUN/Creatinine Ratio 16.8 (10-20) Glucose 186 H (70-99(Fasting)) mg/dl Calcium 9.2 (8.6-10.3) mg/dl Magnesium 2.1 (1.7-2.4) mg/dl Total Bilirubin 0.5 (0.2-1.0) mg/dl AST 19 (13-39) U/L ALT 19 (7-52) U/L Alkaline Phosphatase 100 (34-104) U/L Troponin I High Sens 22.8 H Cancelled (0-14) pg/ml Total Protein 7.7 (6.0-8.3) gm/dl Albumin 4.2 (3.4-5.0) gm/dl Globulin 3.5 (2.5-4.0) gm/dl Albumin/Globulin Ratio 1.2 (0.9-2) Lipase 26 Cancelled (11-82) U/L TSH 2.769 (0.300-4.500) uIu/ml Urine Color Urine Appearance (Clear) Urine pH (4.5-7.5) Ur Specific [place] (1.000-1.030) Urine Protein (Negative) Urine Glucose (UA) (Negative) Urine Ketones (Negative) Urine Blood (Negative) Urine Nitrite (Negative) Urine Bilirubin (Negative) Urine Urobilinogen (Negative) Ur Leukocyte Esterase (Negative) Urine WBC (Auto) (0-5) /hpf Urine RBC (Auto) (0-4) /hpf U Hyaline Cast (Auto) (0-5) /lpf U Epithel Cells (Auto) (0-5) /lpf Urine Bacteria (Auto) (Negative) Urine Yeast 07/28/23 07/29/23 07/29/23 Range/Units 23:53 02:20 02:26 WBC 13.46 H (4.8-10.8) K/ul RBC 4.42 (4.20-5.40) M/uL Hgb 12.6 (12.0-16.0) g/dl Hct 38.3 (37.0-47.0) % MCV 86.7 (80.0-100.0) fL MCH 28.5 (25.0-34.0) pg MCHC 32.9 (32.0-36.0) g/dL RDW Std Deviation 49.7 H (36.4-46.3) fL RDW Coeff of Matt 15.5 H (11.5-14.5) % Plt Count 191 (130-400) K/uL MPV 10.4 (9.4-12.4) fL Immature Gran % (Auto) % Neut % (Auto) % Lymph % (Auto) % [place] % (Auto) % Eos % (Auto) % Baso % (Auto) % Neut # (Auto) (1.40-6.50) K/uL Lymph # (Auto) (1.20-3.40) K/uL [place] # (Auto) (0.11-0.59) K/uL Eos # (Auto) (0.00-0.50) K/uL Baso # (Auto) (0.00-0.20) K/uL Immature Gran # (Auto) (0.01-0.20) K/uL PT (9.0-12.0) Seconds INR (0.9-1.1) Sodium (136-145) mmol/L Potassium (3.5-5.1) mmol/L Chloride (98-107) mmol/L Carbon Dioxide (21-32) mmol/L Anion Gap (3-11) BUN (6-23) mg/dl Creatinine (0.6-1.2) mg/dl Est Cr Clr Drug Dosing Est GFR ( Amer) ml/min Est GFR (Non-Af Amer) ml/min BUN/Creatinine Ratio (10-20) Glucose (70-99(Fasting)) mg/dl Calcium (8.6-10.3) mg/dl Magnesium (1.7-2.4) mg/dl Total Bilirubin (0.2-1.0) mg/dl AST (13-39) U/L ALT (7-52) U/L Alkaline Phosphatase (34-104) U/L Troponin I High Sens 19.6 H (0-14) pg/ml Total Protein (6.0-8.3) gm/dl Albumin (3.4-5.0) gm/dl Globulin (2.5-4.0) gm/dl Albumin/Globulin Ratio (0.9-2) Lipase (11-82) U/L TSH (0.300-4.500) uIu/ml Urine Color Yellow Urine Appearance Cloudy A (Clear) Urine pH 8.0 H (4.5-7.5) Ur Specific [place] > 1.045 H (1.000-1.030) Urine Protein Negative (Negative) Urine Glucose (UA) Negative (Negative) Urine Ketones Negative (Negative) Urine Blood Negative (Negative) Urine Nitrite Negative (Negative) Urine Bilirubin Negative (Negative) Urine Urobilinogen Negative (Negative) Ur Leukocyte Esterase 1+ H (Negative) Urine WBC (Auto) >30 H (0-5) /hpf Urine RBC (Auto) 0-4 (0-4) /hpf U Hyaline Cast (Auto) 1-5 (0-5) /lpf U Epithel Cells (Auto) 10-20 H (0-5) /lpf Urine Bacteria (Auto) 4+ H (Negative) Urine Yeast Not Reportable Administered Medications Discontinued Medications Sodium Chloride (Nss) 1,000 mls @ 125 mls/hr IV .Q8H JULES Stop: 07/29/23 05:59 Last Admin: 07/28/23 22:01 Dose: 125 mls/hr Documented By: SENG Sodium Chloride (Nss) 500 mls @ 999 mls/hr IV .Q31M JULES Stop: 07/28/23 22:30 Last Infusion: 07/28/23 22:33 Dose: Infused Documented By: Admin: 07/28/23 22:01 Dose: 999 mls/hr Documented By: SENG Ioversol (Optiray 320 500ml) 90 ml IV ONCE ONE Stop: 07/28/23 23:05 Last Admin: 07/28/23 23:05 Dose: 90 ml Documented By: LILIANA Ondansetron HCl (Ondansetron Inj 2 Mg/Ml 2 Ml Vial) 4 mg IV NOW STA Stop: 07/28/23 21:55 Last Admin: 07/28/23 22:01 Dose: 4 mg Documented By: SENG Imaging Data Radiologist's Impression: Chest X-Ray 07/28/23 21:54 SINGLE VIEW CHEST CLINICAL HISTORY: Generalized weakness. FINDINGS: An AP, portable, upright chest radiograph is compared to study dated 05/11/2020. The patient is status post midline sternotomy. The heart is enlarged denoting atherosclerotic calcification of the thoracic aorta. The pulmonary vasculature is noncongested. Chronic interstitial thickening is similar to previous. Calcific granulomas are noted in the left upper lobe. There is bibasilar scarring/atelectasis. The lungs and pleural spaces are otherwise clear. No pneumothorax is seen. The skeletal structures are osteopenic. The bony thorax is grossly intact. IMPRESSION: Moderate cardiomegaly with no active disease in the chest. ACT 112: Negative or not required by law. Electronically signed by: Zoltan Morgan M.D. 07/28/2023 10:19 PM Abdomen/Pelvis CT 07/28/23 23:01 Exam(s): CT ABDOMEN + PELVIS With Contrast IV Amt: 90 cc's optiray 320 EXAM: CT Abdomen and Pelvis With Intravenous Contrast CLINICAL HISTORY: vomiting. TECHNIQUE: Axial computed tomography images of the abdomen and pelvis with intravenous contrast. CTDI is 21.45 mGy and DLP is 570.57 mGy-cm. Automated exposure control was utilized for the study. A dose lowering technique was utilized adhering to the principles of ALARA. CONTRAST: Patient received 90 cc's optiray 320 of IV contrast COMPARISON: No relevant prior studies available. FINDINGS: Limitations: There is respiratory artifact, which mildly degrades image quality on multiple image slices. Lung bases: Unremarkable. No mass. No consolidation. Heart: Evidence of mitral valve replacement and left atrial occlusion. ABDOMEN: Liver: Unremarkable. No mass. Gallbladder and bile ducts: A solitary gallstone is noted in the gallbladder. No gallbladder wall thickening or biliary dilatation. Pancreas: Unremarkable. No mass. No ductal dilation. Spleen: Unremarkable. No splenomegaly. Adrenals: Unremarkable. No mass. Kidneys and ureters: The kidneys demonstrate slightly lobular contours. No abnormal enhancement. No hydronephrosis or obstructing nephrolithiasis. A cortical cyst is noted inferolaterally on the right measuring 9 mm. Stomach and bowel: There is mild to moderate distention of stomach with retained oral contents and fluid. No gastric mucosal thickening. No bowel obstruction. No definite asymmetric bowel mucosal abnormality. Mild stool burden. PELVIS: Appendix: The appendix is not definitively identified. No secondary findings to suggest acute appendicitis. Bladder: Unremarkable. No mass. Reproductive: Status post hysterectomy. ABDOMEN and PELVIS: Intraperitoneal space: Unremarkable. No free air. No significant fluid collection. Bones/joints: No acute fracture. No dislocation. Soft tissues: Unremarkable. Vasculature: Atherosclerotic calcification aorta without dissection or aneurysm. Lymph nodes: Unremarkable. No enlarged lymph nodes. IMPRESSION: 1. No bowel obstruction. No definite asymmetric bowel mucosal abnormality, accounting for limitations with respiratory artifact. No free intraperitoneal fluid or pneumoperitoneum. 2. Solitary calcified gallstone noted in the gallbladder. No CT evidence for gallbladder wall thickening or pericholecystic fluid. No biliary dilatation. The clinical significance of this finding is indeterminant and this may be incidental. Electronically signed by: Nathan Fu MD 07/29/23 01:43 AM Discharge Plan Visit Data Chief Complaint: Weakness Stated Complaint: Weakness, Vomiting ED Provider: Kilo Membreno Discharge Problem: Generalized weakness, Vomiting, Elevated troponin Forms Stand Alone Forms: My [facility] Prescriptions Prescriptions: No Action fluticasone propionate [Flonase Allergy Relief] 50 mcg/actuation spray,suspension 2 spray INTRANASAL DAILY PRN (Reason: Nasal Congestion) losartan [Cozaar] 50 mg tablet 75 mg PO QAM famotidine 20 mg Tablet 20 mg PO BID aspirin [Toi Low Dose Aspirin] 81 mg Tablet,Delayed Release (Dr/Ec) 81 mg PO QAM 30 Days Qty: 30 0RF metoprolol tartrate 25 mg tablet 25 mg PO BID glipizide 5 mg tablet 5 mg PO DAILYBB amlodipine 2.5 mg tablet 2.5 mg PO QAM warfarin 5 mg tablet See Rx Instructions .ROUTE .COMPLEX Rx Instructions: TAKES 5 MG ON SUN, TUE, & TH, THEN 2.5 MG MON, WED, FRI, & SAT. EVENINGS rosuvastatin [Crestor] 20 mg tablet 20 mg PO HS Referrals Referrals: Magy Segal MD [Primary Care Provider] -
[2023-07-28 23:26] LABS: INR 5.4 (0.9-1.1); Prothrombin Time 52.9 Seconds (9.0-12.0)
--- NOTE | 2023-07-29 01:44 | CT Scan Report ---
Exam(s): CT ABDOMEN + PELVIS With Contrast IV Amt: 90 cc's optiray 320 EXAM: CT Abdomen and Pelvis With Intravenous Contrast CLINICAL HISTORY: vomiting. TECHNIQUE: Axial computed tomography images of the abdomen and pelvis with intravenous contrast. CTDI is 21.45 mGy and DLP is 570.57 mGy-cm. Automated exposure control was utilized for the study. A dose lowering technique was utilized adhering to the principles of ALARA. CONTRAST: Patient received 90 cc's optiray 320 of IV contrast COMPARISON: No relevant prior studies available. FINDINGS: Limitations: There is respiratory artifact, which mildly degrades image quality on multiple image slices. Lung bases: Unremarkable. No mass. No consolidation. Heart: Evidence of mitral valve replacement and left atrial occlusion. ABDOMEN: Liver: Unremarkable. No mass. Gallbladder and bile ducts: A solitary gallstone is noted in the gallbladder. No gallbladder wall thickening or biliary dilatation. Pancreas: Unremarkable. No mass. No ductal dilation. Spleen: Unremarkable. No splenomegaly. Adrenals: Unremarkable. No mass. Kidneys and ureters: The kidneys demonstrate slightly lobular contours. No abnormal enhancement. No hydronephrosis or obstructing nephrolithiasis. A cortical cyst is noted inferolaterally on the right measuring 9 mm. Stomach and bowel: There is mild to moderate distention of stomach with retained oral contents and fluid. No gastric mucosal thickening. No bowel obstruction. No definite asymmetric bowel mucosal abnormality. Mild stool burden. PELVIS: Appendix: The appendix is not definitively identified. No secondary findings to suggest acute appendicitis. Bladder: Unremarkable. No mass. Reproductive: Status post hysterectomy. ABDOMEN and PELVIS: Intraperitoneal space: Unremarkable. No free air. No significant fluid collection. Bones/joints: No acute fracture. No dislocation. Soft tissues: Unremarkable. Vasculature: Atherosclerotic calcification aorta without dissection or aneurysm. Lymph nodes: Unremarkable. No enlarged lymph nodes. IMPRESSION: 1. No bowel obstruction. No definite asymmetric bowel mucosal abnormality, accounting for limitations with respiratory artifact. No free intraperitoneal fluid or pneumoperitoneum. 2. Solitary calcified gallstone noted in the gallbladder. No CT evidence for gallbladder wall thickening or pericholecystic fluid. No biliary dilatation. The clinical significance of this finding is indeterminant and this may be incidental. Electronically signed by: Nathan Fu MD 07/29/23 01:43 AM
[2023-07-29] MEDS ORDERED: PHYTONADIONE 5 MG TAB PO STA ×2 (02:06→02:28)
--- NOTE | 2023-07-29 02:08 | History & Physical Report ---
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 DVT prophylaxis. Coumadin INR goal between 2 and 3 DNR as per patient prior directives as per daughter. Patient daughter requesting updates providers. Ms. Ivett Bhandari, contact #[phone]. Text document was generated using [employer] voice recognition software. It may contain grammatical or spelling errors. Kindly contact undersigned for clarification of any documentation item in question. History of Present Illness Chief Complaint: Nausea, vomiting, weakness Primary Care Provider: Magy Segal MD History obtained from patient, family, and records. 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 Last confinement April 2020 for embolic CVA presenting as right facial droop and slurred speech symptoms. Patient discharged on Coumadin. Patient with generalized weakness yesterday. Poor appetite, possible sick contacts. Denies abdominal pain, diarrhea, dysuria symptoms. Subsequent bilious emesis. Denies headache. Denies chest pain, SOB. Not confused as per family. Patient brought to ER for evaluation. 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 Allergies Allergy/AdvReac Type Severity Reaction Status Date / Time YAHIR Inhibitors AdvReac Intermediate Cough Verified 07/28/23 23:02 lisinopril AdvReac Intermediate COUGHING Verified 07/28/23 23:02 Home Medications Medication Instructions Recorded Confirmed Type metoprolol tartrate 25 mg tablet 25 mg PO BID 03/10/19 07/28/23 History famotidine 20 mg tablet 20 mg PO BID 05/11/20 07/28/23 History fluticasone propionate 50 2 spray intranasal DAILY PRN Nasal 05/11/20 07/28/23 History mcg/actuation nasal Congestion spray,suspension (Flonase Allergy Relief) losartan 50 mg tablet (Cozaar) 75 mg PO QAM 05/11/20 07/28/23 History aspirin 81 mg tablet,delayed 81 mg PO QAM 30 days #30 tabs 05/13/20 07/28/23 Rx release (Toi Low Dose Aspirin) amlodipine 2.5 mg tablet 2.5 mg PO QAM 06/16/21 07/28/23 History rosuvastatin 20 mg tablet (Crestor) 20 mg PO HS 06/16/21 07/28/23 History warfarin 5 mg tablet See Rx Instructions .Route .COMPLEX 06/16/21 07/28/23 History glipizide 5 mg tablet 5 mg PO DAILYBB 07/28/23 07/28/23 History Past Med/Surg History Medical History CAD (coronary artery disease) CKD (chronic kidney disease), stage III Diabetes mellitus, type II NIDDM Dyslipidemia Essential hypertension History of non-ST elevation myocardial infarction (NSTEMI) 2017 On 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 therapy warfarin daily Osteoporosis Pulmonary hypertension Surgical History History of cardiac cath x2--02/2019 @ [facility] with 1 stent placement 2017 @ [facility] no stents, had CABG History of colonoscopy History of elbow surgery History of heart artery stent (~02/2019) 1 stent placed History of surgery on right wrist History of tonsillectomy and adenoidectomy History of transesophageal echocardiography (RODRIGO) (~07/23/19) S/P appendectomy S/P CABG x 2 2017 FOLLOW WITH BHARAT S/P cataract surgery S/P hysterectomy S/P MVR (mitral valve replacement) (~2016) Family History Father Heart disease Mother Heart disease Stroke Brother Cancer Other No family history of adverse response to anesthesia No significant family history Social History Smoking Status: Never smoker Second Hand Exposure: Yes; Do You Dip or Chew Tobacco: No; Hx Alcohol Use: No Hx Substance Use: No Preferred Language: Greenlandic Communication Ability: Effective Galley Cook Required: No Beliefs That Will Affect Care: None marital status: / Current Living Situation: Family Current Living Situation Comment: DaughterIvett Feels Safe at Home: Yes Assistive Devices: Glasses Review of Systems Review of Systems: GENERAL: Comfortable, pleasant, slightly anxious, oriented to month and year, no respiratory distress SKIN: Normal color, warm HEENT: [place] palpebral conjunctivae, no ptosis, dry buccal mucosa NECK : Supple, no tenderness CHEST : CTA, no tenderness HEART : RRR, no obvious murmurs ABDOMEN: Some distention, nontender EXTREMITIES : No LE swelling/tenderness, no other conspicuous deformities noted NEUROLOGIC : Coherent, no facial asymmetry, slightly hard of hearing, gait and stance not assessed Results & Data Results & Data Vital Signs (Past 12 Hours) Vital Signs Temp Pulse Resp BP BP Pulse Ox O2 Del Method 07/29/23 01:46 82 07/29/23 01:30 83 21 125/65 94 07/29/23 01:00 83 21 114/67 07/29/23 00:30 82 22 132/65 07/29/23 00:00 84 22 115/66 07/28/23 23:30 83 22 129/65 100 07/28/23 23:18 78 19 122/49 L 95 07/28/23 23:17 79 13 07/28/23 22:30 84 24 136/74 95 07/28/23 22:02 84 23 145/75 H 95 07/28/23 22:00 84 20 142/75 H 95 07/28/23 21:54 98 Room Air 07/28/23 21:53 142/75 H 07/28/23 21:52 87 18 95 07/28/23 21:44 88 23 94 07/28/23 21:43 94 Room Air 07/28/23 21:43 36.5 C 89 14 95 Room Air 07/28/23 21:43 88 Laboratory Results Laboratory Results WBC 16.73 K/ul (4.8-10.8) H 07/28/23 21:50 RBC 5.06 M/uL (4.20-5.40) 07/28/23 21:50 Hgb 14.5 g/dl (12.0-16.0) 07/28/23 21:50 Hct 43.6 % (37.0-47.0) 07/28/23 21:50 MCV 86.2 fL (80.0-100.0) 07/28/23 21:50 MCH 28.7 pg (25.0-34.0) 07/28/23 21:50 MCHC 33.3 g/dL (32.0-36.0) 07/28/23 21:50 RDW Std Deviation 49.2 fL (36.4-46.3) H 07/28/23 21:50 RDW Coeff of Matt 15.6 % (11.5-14.5) H 07/28/23 21:50 Plt Count 249 K/uL (130-400) 07/28/23 21:50 MPV 11.1 fL (9.4-12.4) 07/28/23 21:50 Immature Gran % (Auto) 0.4 % 07/28/23 21:50 Neut % (Auto) 88.5 % 07/28/23 21:50 Lymph % (Auto) 3.9 % 07/28/23 21:50 [place] % (Auto) 5.4 % 07/28/23 21:50 Eos % (Auto) 1.6 % 07/28/23 21:50 Baso % (Auto) 0.2 % 07/28/23 21:50 Neut # (Auto) 14.80 K/uL (1.40-6.50) H 07/28/23 21:50 Lymph # (Auto) 0.65 K/uL (1.20-3.40) L 07/28/23 21:50 [place] # (Auto) 0.91 K/uL (0.11-0.59) H 07/28/23 21:50 Eos # (Auto) 0.27 K/uL (0.00-0.50) 07/28/23 21:50 Baso # (Auto) 0.04 K/uL (0.00-0.20) 07/28/23 21:50 Immature Gran # (Auto) 0.06 K/uL (0.01-0.20) 07/28/23 21:50 PT 52.9 Seconds (9.0-12.0) H 07/28/23 21:50 INR 5.4 (0.9-1.1) H 07/28/23 21:50 Sodium 138 mmol/L (136-145) 07/28/23 21:50 Potassium 4.5 mmol/L (3.5-5.1) 07/28/23 21:50 Chloride 105 mmol/L (98-107) 07/28/23 21:50 Carbon Dioxide 24 mmol/L (21-32) 07/28/23 21:50 Anion Gap 9 (3-11) 07/28/23 21:50 BUN 22 mg/dl (6-23) 07/28/23 21:50 Creatinine 1.31 mg/dl (0.6-1.2) H 07/28/23 21:50 Est Cr Clr Drug Dosing Not Reportable 07/28/23 21:50 Est GFR ( Amer) 44.1 ml/min 07/28/23 21:50 Est GFR (Non-Af Amer) 38.1 ml/min 07/28/23 21:50 BUN/Creatinine Ratio 16.8 (10-20) 07/28/23 21:50 Glucose 186 mg/dl (70-99(Fasting)) H 07/28/23 21:50 Calcium 9.2 mg/dl (8.6-10.3) 07/28/23 21:50 Magnesium 2.1 mg/dl (1.7-2.4) 07/28/23 21:50 Total Bilirubin 0.5 mg/dl (0.2-1.0) 07/28/23 21:50 AST 19 U/L (13-39) 07/28/23 21:50 ALT 19 U/L (7-52) 07/28/23 21:50 Alkaline Phosphatase 100 U/L (34-104) 07/28/23 21:50 Troponin I High Sens 19.6 pg/ml (0-14) H 07/28/23 23:53 Total Protein 7.7 gm/dl (6.0-8.3) 07/28/23 21:50 Albumin 4.2 gm/dl (3.4-5.0) 07/28/23 21:50 Globulin 3.5 gm/dl (2.5-4.0) 07/28/23 21:50 Albumin/Globulin Ratio 1.2 (0.9-2) 07/28/23 21:50 Lipase 26 U/L (11-82) 07/28/23 21:50 Lipase Cancelled 07/28/23 21:50 TSH 2.769 uIu/ml (0.300-4.500) 07/28/23 21:50 Impressions Chest X-Ray 07/28/23 21:54 SINGLE VIEW CHEST CLINICAL HISTORY: Generalized weakness. FINDINGS: An AP, portable, upright chest radiograph is compared to study dated 05/11/2020. The patient is status post midline sternotomy. The heart is enlarged denoting atherosclerotic calcification of the thoracic aorta. The pulmonary vasculature is noncongested. Chronic interstitial thickening is similar to previous. Calcific granulomas are noted in the left upper lobe. There is bibasilar scarring/atelectasis. The lungs and pleural spaces are otherwise clear. No pneumothorax is seen. The skeletal structures are osteopenic. The bony thorax is grossly intact. IMPRESSION: Moderate cardiomegaly with no active disease in the chest. ACT 112: Negative or not required by law. Electronically signed by: Zoltan Morgan M.D. 07/28/2023 10:19 PM Abdomen/Pelvis CT 07/28/23 23:01 Exam(s): CT ABDOMEN + PELVIS With Contrast IV Amt: 90 cc's optiray 320 EXAM: CT Abdomen and Pelvis With Intravenous Contrast CLINICAL HISTORY: vomiting. TECHNIQUE: Axial computed tomography images of the abdomen and pelvis with intravenous contrast. CTDI is 21.45 mGy and DLP is 570.57 mGy-cm. Automated exposure control was utilized for the study. A dose lowering technique was utilized adhering to the principles of ALARA. CONTRAST: Patient received 90 cc's optiray 320 of IV contrast COMPARISON: No relevant prior studies available. FINDINGS: Limitations: There is respiratory artifact, which mildly degrades image quality on multiple image slices. Lung bases: Unremarkable. No mass. No consolidation. Heart: Evidence of mitral valve replacement and left atrial occlusion. ABDOMEN: Liver: Unremarkable. No mass. Gallbladder and bile ducts: A solitary gallstone is noted in the gallbladder. No gallbladder wall thickening or biliary dilatation. Pancreas: Unremarkable. No mass. No ductal dilation. Spleen: Unremarkable. No splenomegaly. Adrenals: Unremarkable. No mass. Kidneys and ureters: The kidneys demonstrate slightly lobular contours. No abnormal enhancement. No hydronephrosis or obstructing nephrolithiasis. A cortical cyst is noted inferolaterally on the right measuring 9 mm. Stomach and bowel: There is mild to moderate distention of stomach with retained oral contents and fluid. No gastric mucosal thickening. No bowel obstruction. No definite asymmetric bowel mucosal abnormality. Mild stool burden. PELVIS: Appendix: The appendix is not definitively identified. No secondary findings to suggest acute appendicitis. Bladder: Unremarkable. No mass. Reproductive: Status post hysterectomy. ABDOMEN and PELVIS: Intraperitoneal space: Unremarkable. No free air. No significant fluid collection. Bones/joints: No acute fracture. No dislocation. Soft tissues: Unremarkable. Vasculature: Atherosclerotic calcification aorta without dissection or aneurysm. Lymph nodes: Unremarkable. No enlarged lymph nodes. IMPRESSION: 1. No bowel obstruction. No definite asymmetric bowel mucosal abnormality, accounting for limitations with respiratory artifact. No free intraperitoneal fluid or pneumoperitoneum. 2. Solitary calcified gallstone noted in the gallbladder. No CT evidence for gallbladder wall thickening or pericholecystic fluid. No biliary dilatation. The clinical significance of this finding is indeterminant and this may be incidental. Electronically signed by: Nathan Fu MD 07/29/23 01:43 AM Diagnostic Findings EKG as per my interpretation :Rate 90, NSR, LAD, LAFB, LVH, T wave abnormalities lateral and septal leads
[2023-07-29] MEDS ORDERED: SODIUM CHLORIDE 0.9% 1,000 ML IV STA (02:10)
[2023-07-29] MEDS ORDERED: PROMETHAZINE HCL 6.25 MG in SODIUM CHLORIDE 0.9% 50 ML IV PRN (02:14)
[2023-07-29] MEDS ORDERED: PHYTONADIONE PED 1 MG, ORA-SWEET SYRUP 2.25 ML, ORA-PLUS SUSP VEHICLE 2.25 ML, BARCODE ... PO STA (02:16)
[2023-07-29 02:34] LABS: Appearance Urine Cloudy (Clear); Bacteria Urine Automated 4+ (Negative); Bilirubin Urine Negative (Negative); Blood Urine Negative (Negative); Color Urine Yellow; Glucose Urine UA Negative (Negative); Ketones Urine Negative (Negative); Leukocyte Esterase Urine 1+ (Negative); Nitrite Urine Negative (Negative); Protein Urine Negative (Negative); Specific Gravity Urine > 1.045 (1.000-1.030); Urobilinogen Urine Negative (Negative); WBC Urine Automated >30 /hpf (0-5)
[2023-07-29] MEDS ORDERED: PHYTONADIONE PED 1 MG, ORA-SWEET SYRUP 2.25 ML, ORA-PLUS SUSP VEHICLE 2.25 ML, BARCODE ... PO ONE (02:35)
[2023-07-29 02:44] LABS: Hematocrit (blood only) 38.3 % (37.0-47.0); Hemoglobin 12.6 g/dl (12.0-16.0); Mean Corpuscular Hemoglobin 28.5 pg (25.0-34.0); Mean Corpuscular Hgb Conc 32.9 g/dL (32.0-36.0); Mean Corpuscular Volume 86.7 fL (80.0-100.0); Mean Platelet Volume 10.4 fL (9.4-12.4); Platelet Count 191 K/uL (130-400); RDW Coefficient of Variation 15.5 % (11.5-14.5); RDW Standard Deviation 49.7 fL (36.4-46.3); Red Blood Count 4.42 M/uL (4.20-5.40); White Blood Count 13.46 K/ul (4.8-10.8)
[2023-07-29 02:46] LABS: RBC Urine Automated 0-4 /hpf (0-4)
[2023-07-29 03:00] LABS: Basophils # (auto) 0.02 K/uL (0.00-0.20); Basophils % (auto) 0.1 %; Eosinophils # (auto) 0.05 K/uL (0.00-0.50); Eosinophils % (auto) 0.4 %; Immature Granulocytes # (auto) 0.06 K/uL (0.01-0.20); Immature Granulocytes % (auto) 0.4 %; Lymphocytes # (auto) 0.71 K/uL (1.20-3.40); Lymphocytes % (auto) 5.3 %; Monocytes # (auto) 0.49 K/uL (0.11-0.59); Monocytes % (auto) 3.6 %; Neutrophils # (auto) 12.13 K/uL (1.40-6.50); Neutrophils % (auto) 90.2 %; RBC Morphology Unremarkable
[2023-07-29 03:02] LABS: Anion Gap 8 (3-11); BUN Creatinine Ratio 18.9 (10-20); Blood Urea Nitrogen 21 mg/dl (6-23); Calcium 8.3 mg/dl (8.6-10.3); Carbon Dioxide 22 mmol/L (21-32); Chloride 107 mmol/L (98-107); Est GFR (African American) 53.9 ml/min; Est GFR (Non-African American) 46.5 ml/min; Glucose 174 mg/dl (70-99(Fasting)); Potassium 4.1 mmol/L (3.5-5.1); Sodium 137 mmol/L (136-145)
[2023-07-29 03:20] LABS: INR 5.1 (0.9-1.1); Prothrombin Time 50.8 Seconds (9.0-12.0)
[2023-07-29 03:58] LABS: Influenza A virus by PCR Negative (Neg); Influenza B virus by PCR Negative (Neg); RSV by PCR Negative (Neg); SARS CoV2 RNA(COVID-19) Ceph NEGATIVE (Negative)
[2023-07-29] MEDS ORDERED: GLUCOSE 40% GEL 15 GM TUBE PO PRN (04:00)
[2023-07-29] MEDS ORDERED: DEXTROSE 50% 50 ML SYRINGE IV PRN (04:00)
[2023-07-29] MEDS ORDERED: CARBOHYDRATES FOR HYPOGLYCEMIA PO PRN (04:00)
[2023-07-29] MEDS ORDERED: FLUTICASONE PROPIONATE NA SPR 16 GM BTL PRN (04:00)
[2023-07-29] MEDS ORDERED: GLUCOSE 10 TAB/TUBE PO PRN (04:00)
[2023-07-29] MEDS ORDERED: GLUCAGON FOR INJ 1 MG VIAL SQ PRN (04:00)
[2023-07-29] MEDS: INSULIN ASPART PER UNIT CHARGE SC SCH ×4 (04:50→21:50)
[2023-07-29] MEDS: ASPIRIN 81 MG ECTAB PO SCH (08:30)
[2023-07-29] MEDS: FAMOTIDINE 20 MG TAB PO SCH ×2 (08:30→22:00)
[2023-07-29] MEDS: METOPROLOL TARTRATE 25 MG TAB PO SCH ×2 (08:30→21:51)
[2023-07-29] MEDS: amLODIPine BESYLATE 5 MG TAB PO SCH (08:30)
--- NOTE | 2023-07-29 13:26 | Communication Note ---
Date of Service: July 29, 2023 Daughter contacted and updated at 6:56PM. All questions answered. UTI- Continue rocephin, follow Cx Supratherapeutic INR- follow with AM PT/INR. Hold home coumadin. Stool Incontinence- noted on exam today. Monitor For additional details please see H & P from the same date of service.
--- NOTE | 2023-07-29 21:08 | Electrocardiogram Report ---
Test Reason : Blood Pressure : / mmHG Vent. Rate : 088 BPM Atrial Rate : 088 BPM P-R Int : 206 ms QRS Dur : 092 ms QT Int : 378 ms P-R-T Axes : 058 -50 101 degrees QTc Int : 457 ms Normal sinus rhythm Left anterior fascicular block Left ventricular hypertrophy with repolarization abnormality ( R in aVL , Inocencio product ) Abnormal ECG When compared with ECG of 11-MAY-2020 18:02, T wave amplitude has increased in Inferior leads Confirmed by Nehemias Gutierrez ([id number]) on 07/29/2023 9:07:46 PM Referred By: REFERRED SELF Confirmed By:Nehemias Gutierrez
[2023-07-29] MEDS: ROSUVASTATIN CALCIUM 20 MG TAB PO SCH (21:51)
[2023-07-30] MEDS: cefTRIAXone SODIUM 2,000 MG in DEXTROSE 5 % MINI-B 50 ML IV SCH (05:26)
[2023-07-30 07:42] LABS: Basophils # (auto) 0.06 K/uL (0.00-0.20); Basophils % (auto) 0.3 %; Eosinophils # (auto) 0.06 K/uL (0.00-0.50); Eosinophils % (auto) 0.3 %; Hematocrit (blood only) 36.9 % (37.0-47.0); Immature Granulocytes # (auto) 0.12 K/uL (0.01-0.20); Immature Granulocytes % (auto) 0.6 %; Lymphocytes # (auto) 2.66 K/uL (1.20-3.40); Lymphocytes % (auto) 14.4 %; Mean Corpuscular Hemoglobin 28.4 pg (25.0-34.0); Mean Corpuscular Hgb Conc 32.5 g/dL (32.0-36.0); Mean Corpuscular Volume 87.2 fL (80.0-100.0); Mean Platelet Volume 10.8 fL (9.4-12.4); Monocytes # (auto) 1.92 K/uL (0.11-0.59); Monocytes % (auto) 10.4 %; Neutrophils # (auto) 13.71 K/uL (1.40-6.50); Platelet Count 186 K/uL (130-400); RDW Coefficient of Variation 15.5 % (11.5-14.5); RDW Standard Deviation 49.2 fL (36.4-46.3); Red Blood Count 4.23 M/uL (4.20-5.40); White Blood Count 18.53 K/ul (4.8-10.8)
[2023-07-30 08:05] LABS: BUN Creatinine Ratio 11.9 (10-20); Calcium 7.5 mg/dl (8.6-10.3); Creatinine Clr Calc Pharmacy 39.3 ml/min; Est GFR (African American) 60.5 ml/min; Est GFR (Non-African American) 52.2 ml/min; Magnesium 1.8 mg/dl (1.7-2.4); Phosphorus 2.7 mg/dl (2.5-4.9); Potassium 3.4 mmol/L (3.5-5.1)
[2023-07-30] MEDS: ASPIRIN 81 MG ECTAB PO SCH (08:11)
[2023-07-30] MEDS: METOPROLOL TARTRATE 25 MG TAB PO SCH ×2 (08:12→22:05)
[2023-07-30] MEDS: amLODIPine BESYLATE 5 MG TAB PO SCH (08:12)
[2023-07-30] MEDS: FAMOTIDINE 20 MG TAB PO SCH ×2 (08:15→22:05)
[2023-07-30] MEDS ORDERED: POTASSIUM CHLORIDE CRTAB 20 MEQ TABCR PO STA (08:52)
[2023-07-30] MEDS: INSULIN ASPART PER UNIT CHARGE SC SCH ×4 (09:00→21:54)
[2023-07-30 10:00] LABS: INR 1.9 (0.9-1.1); Prothrombin Time 19.5 Seconds (9.0-12.0)
--- NOTE | 2023-07-30 19:53 | Hospitalist Progress Note ---
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 Generalized Weakness Presenting with N/V, noted episode of fecal incontinence WBC elevated UA suggestive of infection, urine Cx with no significant growth at this time Chest xray noting cardiomegaly but no acute disease CT abd/pelvis with noted calcified gallstone, per radiology unknown significance Pt's symptoms possibly related to viral illness Continue Rocephin for possible UTI PT/OT- recommending home with family support Elevated troponin CAD status post CABG/stent hx bioprosthetic MVR PSVT hs- trop elevated at 19.6 and downtrended to 16.7 EKG with NSR and noted left anterior fascicular block Monitor on telemetry Consider cardiology consult in AM- pt currently on metoprolol Supratherapeutic INR Hx of Embolic CVA On warfarin for Hx of embolic CVA INR 5.4 on admission Vitamin K 1 mg oral dose was given on admission patient without overt signs of bleed INR currently down to 1.9 Warfarin resumed. HTN Continue home amlodipine, losartan HLD Continue home statin DM 2 on oral medications, holding well-controlled as of recent hemoglobin A1c of 6.23 May 2023 CKD creatinine at baseline Stable DVT prophylaxis: Coumadin INR goal between 2 and 3 DNR/DNI Pt contact: Paulino Ivett Bhandari, contact #[phone]. Admission and Anticipated Discharge Date Admission Date: July 29, 2023 Subjective Pt was seen while laying in bed. AAO x3 Denied acute concerns. Denied diarrhea or dysuria. Review of Systems Review of Systems: All systems reviewed & are unremarkable except as noted in Subjective Physical Exam Physical Exam: General: Alert, oriented. No acute distress Psych: Appropriate mood and affect Neuro: No gross deficits HEENT: NC/AT CV: RRR Resp: Breath sounds clear bilaterally, no increased effort of breathing. Abdomen: Soft Extremities: moves lower extremities appropriately Results & Data Results & Data Vital Signs (Past 12 Hours) Vital Signs Temp Pulse Resp BP BP Pulse Ox O2 Del Method 07/30/23 15:21 37.2 C 68 16 110/68 94 Room Air 07/30/23 07:10 37.1 C 74 18 121/66 93 Room Air (7) CVA (cerebral vascular accident) CVA mechanism: unspecified Qualified Code(s): I63.9 - Cerebral infarction, unspecified
[2023-07-30] MEDS ORDERED: WARFARIN SOD 2.5 MG TAB PO SCH (20:45)
[2023-07-30] MEDS: ROSUVASTATIN CALCIUM 20 MG TAB PO SCH (22:05)
[2023-07-31] MEDS: cefTRIAXone SODIUM 2,000 MG in DEXTROSE 5 % MINI-B 50 ML IV SCH (06:10)
[2023-07-31 07:41] LABS: Basophils # (auto) 0.04 K/uL (0.00-0.20); Basophils % (auto) 0.3 %; Eosinophils # (auto) 0.47 K/uL (0.00-0.50); Hematocrit (blood only) 34.5 % (37.0-47.0); Hemoglobin 11.7 g/dl (12.0-16.0); Immature Granulocytes # (auto) 0.02 K/uL (0.01-0.20); Immature Granulocytes % (auto) 0.2 %; Lymphocytes # (auto) 2.72 K/uL (1.20-3.40); Lymphocytes % (auto) 23.3 %; Mean Corpuscular Hemoglobin 28.7 pg (25.0-34.0); Mean Corpuscular Hgb Conc 33.9 g/dL (32.0-36.0); Mean Corpuscular Volume 84.8 fL (80.0-100.0); Mean Platelet Volume 10.3 fL (9.4-12.4); Monocytes # (auto) 1.48 K/uL (0.11-0.59); Monocytes % (auto) 12.7 %; Neutrophils # (auto) 6.96 K/uL (1.40-6.50); Neutrophils % (auto) 59.5 %; Platelet Count 180 K/uL (130-400); RDW Coefficient of Variation 15.4 % (11.5-14.5); RDW Standard Deviation 47.2 fL (36.4-46.3); Red Blood Count 4.07 M/uL (4.20-5.40); White Blood Count 11.69 K/ul (4.8-10.8)
[2023-07-31] MEDS: ACETAMINOPHEN 325 MG TAB PO PRN ×2 (07:53→17:47)
[2023-07-31] MEDS: METOPROLOL TARTRATE 25 MG TAB PO SCH ×2 (07:55→20:36)
[2023-07-31] MEDS: FAMOTIDINE 20 MG TAB PO SCH ×2 (07:55→20:38)
[2023-07-31] MEDS: amLODIPine BESYLATE 5 MG TAB PO SCH (07:55)
[2023-07-31] MEDS: ASPIRIN 81 MG ECTAB PO SCH (07:56)
[2023-07-31 07:58] LABS: BUN Creatinine Ratio 12.2 (10-20); Calcium 7.9 mg/dl (8.6-10.3); Creatinine Clr Calc Pharmacy 44.1 ml/min; Est GFR (African American) 69.5 ml/min; Phosphorus 1.8 mg/dl (2.5-4.9); Potassium 3.4 mmol/L (3.5-5.1)
[2023-07-31 08:22] LABS: INR 1.6 (0.9-1.1); Prothrombin Time 17.2 Seconds (9.0-12.0)
[2023-07-31] MEDS: INSULIN ASPART PER UNIT CHARGE SC SCH ×4 (08:30→21:43)
[2023-07-31] MEDS ORDERED: POTASSIUM CHLORIDE CRTAB 20 MEQ TABCR PO STA (10:45)
[2023-07-31] MEDS ORDERED: POTASSIUM PHOS 3 MMOL/1 ML INFUSION IV STA (10:47)
[2023-07-31] MEDS ORDERED: POTASSIUM PHOSPHATE 21 MMOL in SODIUM CHLORIDE 0.9% 500 ML IV ONE (11:00)
--- NOTE | 2023-07-31 15:33 | Hospitalist Progress Note ---
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 Generalized Weakness Presenting with N/V, noted episode of fecal incontinence WBC elevated, downtrended UA suggestive of infection, urine Cx with alpha strep growth, >100,000 colonies Chest xray noting cardiomegaly but no acute disease CT abd/pelvis with noted calcified gallstone, per radiology unknown significance Pt's symptoms possibly related to viral illness Transitioned from IV rocephin to PO Keflex for alpha strep infection PT/OT- recommending home with family support Elevated troponin CAD status post CABG/stent hx bioprosthetic MVR PSVT hs- trop elevated at 19.6 and downtrended to 16.7 EKG with NSR and noted left anterior fascicular block Monitor on telemetry Consider cardiology consult in AM- pt currently on metoprolol Supratherapeutic INR Hx of Embolic CVA On warfarin for Hx of embolic CVA INR 5.4 on admission Vitamin K 1 mg oral dose was given on admission patient without overt signs of bleed INR currently down to 1.9 Warfarin resumed. HTN Continue home amlodipine, losartan HLD Continue home statin DM 2 on oral medications, holding well-controlled as of recent hemoglobin A1c of 6.23 May 2023 CKD creatinine at baseline Stable DVT prophylaxis: Coumadin INR goal between 2 and 3 DNR/DNI Pt contact: Ms. Ivett Bhandari, contact #[phone]. Admission and Anticipated Discharge Date Admission Date: July 29, 2023 Subjective Pt was seen while sitting at bedside AAO x3 Denied acute concerns. Denied dysuria Diarrhea but not watery Daughter called and updated. Review of Systems Review of Systems: All systems reviewed & are unremarkable except as noted in Subjective Physical Exam Physical Exam: General: Alert, oriented. No acute distress Psych: Appropriate mood and affect Neuro: No gross deficits HEENT: NC/AT CV: RRR Resp: Breath sounds clear bilaterally, no increased effort of breathing. Abdomen: Soft Extremities: moves lower extremities appropriately Results & Data Results & Data Vital Signs (Past 12 Hours) Vital Signs Temp Pulse Resp BP Pulse Ox O2 Del Method 07/31/23 07:45 73 20 128/69 93 Room Air 07/31/23 06:44 36.5 C 73 14 106/62 93 Room Air (7) CVA (cerebral vascular accident) CVA mechanism: unspecified Qualified Code(s): I63.9 - Cerebral infarction, unspecified
[2023-07-31] MEDS ORDERED: WARFARIN SOD 5 MG TAB PO SCH (16:00)
[2023-07-31] MEDS: ROSUVASTATIN CALCIUM 20 MG TAB PO SCH (20:36)
[2023-08-01] MEDS: cephALEXin 500 MG CAP PO SCH ×2 (07:54→12:26)
[2023-08-01] MEDS: FAMOTIDINE 20 MG TAB PO SCH (07:55)
[2023-08-01] MEDS: METOPROLOL TARTRATE 25 MG TAB PO SCH (07:56)
[2023-08-01] MEDS: ASPIRIN 81 MG ECTAB PO SCH (07:56)
[2023-08-01] MEDS: amLODIPine BESYLATE 5 MG TAB PO SCH (07:56)
[2023-08-01] MEDS: INSULIN ASPART PER UNIT CHARGE SC SCH ×2 (08:39→12:25)
[2023-08-01 08:42] LABS: Basophils # (auto) 0.06 K/uL (0.00-0.20); Basophils % (auto) 0.7 %; Eosinophils # (auto) 0.61 K/uL (0.00-0.50); Eosinophils % (auto) 6.9 %; Hematocrit (blood only) 34.5 % (37.0-47.0); Hemoglobin 11.4 g/dl (12.0-16.0); Immature Granulocytes # (auto) 0.02 K/uL (0.01-0.20); Immature Granulocytes % (auto) 0.2 %; Lymphocytes # (auto) 3.17 K/uL (1.20-3.40); Lymphocytes % (auto) 35.8 %; Mean Corpuscular Hemoglobin 28.4 pg (25.0-34.0); Mean Corpuscular Volume 85.8 fL (80.0-100.0); Mean Platelet Volume 11.2 fL (9.4-12.4); Monocytes # (auto) 1.05 K/uL (0.11-0.59); Monocytes % (auto) 11.9 %; Neutrophils # (auto) 3.94 K/uL (1.40-6.50); Neutrophils % (auto) 44.5 %; Platelet Count 216 K/uL (130-400); RDW Standard Deviation 47.8 fL (36.4-46.3); Red Blood Count 4.02 M/uL (4.20-5.40); White Blood Count 8.85 K/ul (4.8-10.8)
[2023-08-01 09:01] LABS: BUN Creatinine Ratio 14.4 (10-20); Calcium 8.1 mg/dl (8.6-10.3); Creatinine Clr Calc Pharmacy 40.2 ml/min; Est GFR (Non-African American) 54.4 ml/min; Magnesium 2.2 mg/dl (1.7-2.4); Phosphorus 2.4 mg/dl (2.5-4.9)
[2023-08-01 09:34] LABS: INR 2.1 (0.9-1.1); Prothrombin Time 22.4 Seconds (9.0-12.0)
--- NOTE | 2023-08-01 14:15 | Ultrasound Report ---
LEFT LOWER EXTREMITY VENOUS DOPPLER HISTORY: L groin pain COMPARISON STUDY: None. FINDINGS: There is normal compressibility, flow, and augmentation within the left lower extremity micaela p venous system. IMPRESSION: No DVT within the left lower extremity. ACT 112: Negative or not required by law. Electronically signed by: Isma Hurtado M.D. 08/01/2023 2:14 PM
[2023-08-01] MEDS: POT PHOSPHATE MONOBASIC W/ SOD TAB PO SCH ×2 (14:17)
--- NOTE | 2023-08-01 14:52 | XRay Report ---
XR hip LT 2V w pelvis CLINICAL HISTORY: L groin pain COMPARISON STUDY: Abdomen and pelvis CT 07/28/2023. FINDINGS: No fracture or dislocation within the pelvis or hips. Soft tissues are unremarkable. The sa colten is intact. Mild degenerative changes within the bilateral sacroiliac joints. IMPRESSION: No fracture or dislocation within the pelvis or hips. ACT 112: Negative or not required by law. Electronically signed by: Manny Forrest M.D. 08/01/2023 2:50 PM
--- NOTE | 2023-08-04 16:49 | Discharge Summary ---
Discharge Summary Date of Service August 01, 2023 Notes For Next Care Provider Please order phosphorus level at scheduled pcp followup on 08/07- discontinue supplements as needed Please follow up on weakness Follow up of calcified gallstone noted on imaging recommended Please ensure Coumadin Clinic follow up for INR of 2.1 on discharge Medication Changes From Visit Keflex 500mg QID Phosphorus tabs Admission HPI Per Admitting Provider History obtained from patient, family, and records. 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 Last confinement April 2020 for embolic CVA presenting as right facial droop and slurred speech symptoms. Patient discharged on Coumadin. Patient with generalized weakness yesterday. Poor appetite, possible sick contacts. Denies abdominal pain, diarrhea, dysuria symptoms. Subsequent bilious emesis. Denies headache. Denies chest pain, SOB. Not confused as per family. Patient brought to ER for evaluation. 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 Admission Exam Per Admitting Provider GENERAL: Comfortable, pleasant, slightly anxious, oriented to month and year, no respiratory distress SKIN: Normal color, warm HEENT: [place] palpebral conjunctivae, no ptosis, dry buccal mucosa NECK : Supple, no tenderness CHEST : CTA, no tenderness HEART : RRR, no obvious murmurs ABDOMEN: Some distention, nontender EXTREMITIES : No LE swelling/tenderness, no other conspicuous deformities noted NEUROLOGIC : Coherent, no facial asymmetry, slightly hard of hearing, gait and stance not assessed Principal Dx & Hospital Course #1 = Principal Diagnosis (1) Elevated troponin: (2) Vomiting: (3) Generalized weakness: (4) SVT (supraventricular tachycardia): (5) S/P CABG x 2: (6) CKD (chronic kidney disease) stage 3, GFR 30-59 ml/min: (7) CVA (cerebral vascular accident): (8) Diabetes mellitus, type II: Plan Pt is a 82yoF with PMHx significant for CAD s/p CABG/stent, bioprosthetic MVR, PSVT, hypertension, 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 Generalized Weakness Complicated UTI Presenting with N/V, noted episode of fecal incontinence WBC elevated, downtrended and wnl on discharge UA suggestive of infection, urine Cx with alpha strep growth, >100,000 colonies Chest xray noting cardiomegaly but no acute disease CT abd/pelvis with noted calcified gallstone, per radiology unknown significance Alpha strep, usually a contaminant was treated in this case given >100, 000 colonies and clinical picture. Treated with IV rocephin and transitioned to PO Keflex on discharge Pt worked with PT/OT- recommending home with family support PCP follow up Elevated troponin CAD status post CABG/stent hx bioprosthetic MVR PSVT hs- trop elevated at 19.6 and downtrended to 16.7 EKG with NSR and noted left anterior fascicular block Doubt ACS Monitored on telemetry PCP and cardiology follow up after discharge Supratherapeutic INR Hx of Embolic CVA On warfarin for Hx of embolic CVA INR 5.4 on admission Vitamin K 1 mg oral dose was given on admission patient without overt signs of bleed INR 2.1 on discharge, warfarin resumed. Coumadin clinic and pcp follow up after discharge Hypophosphatemia Phosphorus dropped to 1.8 while hospitalized Phos 2.4 on discharge, discharged with supplements PCP follow up- please order phosphorus level at scheduled pcp followup on 08/07 Consider discontinuing supplements as needed based on repeated levels Calcified gallstone Incidentally noted on CT abd/pelvis Per radiology unknown significance PCP follow up HTN Continue home amlodipine, losartan HLD Continue home statin DM 2 on oral medications, holding well-controlled as of recent hemoglobin A1c of 6.23 May 2023 CKD creatinine at baseline Stable Discharge Exam General: Alert, oriented. No acute distress Psych: Appropriate mood and affect Neuro: No gross deficits HEENT: NC/AT CV: RRR Resp: Breath sounds clear bilaterally, no increased effort of breathing. Abdomen: Soft Extremities: moves lower extremities appropriately Updated Medication List Medication Instructions Recorded Confirmed Type metoprolol tartrate 25 mg tablet 25 mg PO BID 03/10/19 07/28/23 History famotidine 20 mg tablet 20 mg PO BID 05/11/20 07/28/23 History fluticasone propionate 50 2 spray intranasal DAILY PRN Nasal 05/11/20 07/28/23 History mcg/actuation nasal Congestion spray,suspension (Flonase Allergy Relief) losartan 50 mg tablet (Cozaar) 75 mg PO QAM 05/11/20 07/28/23 History aspirin 81 mg tablet,delayed 81 mg PO QAM 30 days #30 tabs 05/13/20 07/28/23 Rx release (Toi Low Dose Aspirin) amlodipine 2.5 mg tablet 2.5 mg PO QAM 06/16/21 07/28/23 History rosuvastatin 20 mg tablet (Crestor) 20 mg PO HS 06/16/21 07/28/23 History warfarin 5 mg tablet See Rx Instructions .Route .COMPLEX 06/16/21 07/28/23 History glipizide 5 mg tablet 5 mg PO DAILYBB 07/28/23 07/28/23 History cephalexin 500 mg capsule 500 mg PO QID #18 caps 08/01/23 Rx sodium di- and 2 tab PO QID #56 tabs 08/01/23 Rx monophosphate-potassium phos monobasic 250 mg tablet (Phospha Neutral) Hospital Stay Data Diagnostic Imagining Performed 07/28/23 23:01 CT Abd and Pelvis [CT abd pelvis IV con only] Stat 08/01/23 11:24 US venous doppler LE LT Urgent Chest X-Ray 07/28/23 21:54 SINGLE VIEW CHEST CLINICAL HISTORY: Generalized weakness. FINDINGS: An AP, portable, upright chest radiograph is compared to study dated 05/11/2020. The patient is status post midline sternotomy. The heart is enlarged denoting atherosclerotic calcification of the thoracic aorta. The pulmonary vasculature is noncongested. Chronic interstitial thickening is similar to previous. Calcific granulomas are noted in the left upper lobe. There is bibasilar scarring/atelectasis. The lungs and pleural spaces are otherwise clear. No pneumothorax is seen. The skeletal structures are osteopenic. The bony thorax is grossly intact. IMPRESSION: Moderate cardiomegaly with no active disease in the chest. ACT 112: Negative or not required by law. Electronically signed by: Zoltan Morgan M.D. 07/28/2023 10:19 PM Abdomen/Pelvis CT 07/28/23 23:01 Exam(s): CT ABDOMEN + PELVIS With Contrast IV Amt: 90 cc's optiray 320 EXAM: CT Abdomen and Pelvis With Intravenous Contrast CLINICAL HISTORY: vomiting. TECHNIQUE: Axial computed tomography images of the abdomen and pelvis with intravenous contrast. CTDI is 21.45 mGy and DLP is 570.57 mGy-cm. Automated exposure control was utilized for the study. A dose lowering technique was utilized adhering to the principles of ALARA. CONTRAST: Patient received 90 cc's optiray 320 of IV contrast COMPARISON: No relevant prior studies available. FINDINGS: Limitations: There is respiratory artifact, which mildly degrades image quality on multiple image slices. Lung bases: Unremarkable. No mass. No consolidation. Heart: Evidence of mitral valve replacement and left atrial occlusion. ABDOMEN: Liver: Unremarkable. No mass. Gallbladder and bile ducts: A solitary gallstone is noted in the gallbladder. No gallbladder wall thickening or biliary dilatation. Pancreas: Unremarkable. No mass. No ductal dilation. Spleen: Unremarkable. No splenomegaly. Adrenals: Unremarkable. No mass. Kidneys and ureters: The kidneys demonstrate slightly lobular contours. No abnormal enhancement. No hydronephrosis or obstructing nephrolithiasis. A cortical cyst is noted inferolaterally on the right measuring 9 mm. Stomach and bowel: There is mild to moderate distention of stomach with retained oral contents and fluid. No gastric mucosal thickening. No bowel obstruction. No definite asymmetric bowel mucosal abnormality. Mild stool burden. PELVIS: Appendix: The appendix is not definitively identified. No secondary findings to suggest acute appendicitis. Bladder: Unremarkable. No mass. Reproductive: Status post hysterectomy. ABDOMEN and PELVIS: Intraperitoneal space: Unremarkable. No free air. No significant fluid collection. Bones/joints: No acute fracture. No dislocation. Soft tissues: Unremarkable. Vasculature: Atherosclerotic calcification aorta without dissection or aneurysm. Lymph nodes: Unremarkable. No enlarged lymph nodes. IMPRESSION: 1. No bowel obstruction. No definite asymmetric bowel mucosal abnormality, accounting for limitations with respiratory artifact. No free intraperitoneal fluid or pneumoperitoneum. 2. Solitary calcified gallstone noted in the gallbladder. No CT evidence for gallbladder wall thickening or pericholecystic fluid. No biliary dilatation. The clinical significance of this finding is indeterminant and this may be incidental. Electronically signed by: Nathan Fu MD 07/29/23 01:43 AM Hip/Pelvis X-Ray 08/01/23 00:00 XR hip LT 2V w pelvis CLINICAL HISTORY: L groin pain COMPARISON STUDY: Abdomen and pelvis CT 07/28/2023. FINDINGS: No fracture or dislocation within the pelvis or hips. Soft tissues are unremarkable. The sacrum is intact. Mild degenerative changes within the bilateral sacroiliac joints. IMPRESSION: No fracture or dislocation within the pelvis or hips. ACT 112: Negative or not required by law. Electronically signed by: Manny Forrest M.D. 08/01/2023 2:50 PM Venous Doppler Study 08/01/23 11:24 LEFT LOWER EXTREMITY VENOUS DOPPLER HISTORY: L groin pain COMPARISON STUDY: None. FINDINGS: There is normal compressibility, flow, and augmentation within the left lower extremity deep venous system. IMPRESSION: No DVT within the left lower extremity. ACT 112: Negative or not required by law. Electronically signed by: Isma Hurtado M.D. 08/01/2023 2:14 PM Discharge Instructions Given to Patient (Per Discharging Provider) Ms. Dejesus, You were admitted with generalized weakness in the setting of a urinary tract infection. We treated you with antibiotics and had you work with physical therapy and your symptoms improved. We are discharging you home with 5 more days of antibiotics, please take it every 6 hours or four times a day until finished. Your INR was 2.1 on discharge. Please keep close follow up with the Coumadin clinic after discharge to ensure it remains at goal of between 2-3. Please continue with your home warfarin as prescribed until you follow up with them. Please keep close follow up with your primary care provider after discharge. Please do not hesitate to come back to the emergency room if your symptoms worsen or return. It was a pleasure taking care of you while you were here. Total Time Total Time Spent Total Time Spent (In Minutes): > 30 minutes
== END 2023-08-01 15:37 | disposition home or self-care (01) | DRG 690 ==
LOC: ED 21:37 → EDINP 21:37 → 3N 07-29 04:00
DX: Z95.3 Presence of xenogenic heart valve; E11.22 Type 2 diabetes mellitus with diabetic chronic kidney disease; R11.2 Nausea with vomiting, unspecified; Z11.52 Encounter for screening for COVID-19; R19.7 Diarrhea, unspecified; I69.311 Memory deficit following cerebral infarction; I25.2 Old myocardial infarction; Z95.5 Presence of coronary angioplasty implant and graft; I44.4 Left anterior fascicular block; R53.1 Weakness; Z66 Do not resuscitate; I25.10 Atherosclerotic heart disease of native coronary artery without angina pectoris; R79.89 Other specified abnormal findings of blood chemistry; N39.0 Urinary tract infection, site not specified; R79.1 Abnormal coagulation profile; N18.30 Chronic kidney disease, stage 3 unspecified; E78.5 Hyperlipidemia, unspecified; K80.20 Calculus of gallbladder without cholecystitis without obstruction; R15.9 Full incontinence of feces; I12.9 Hypertensive chronic kidney disease with stage 1 through stage 4 chronic kidney disease, or unspecified chronic kidney disease; Z88.8 Allergy status to other drugs, medicaments and biological substances; Z79.84 Long term (current) use of oral hypoglycemic drugs; B34.9 Viral infection, unspecified; B95.0 Streptococcus, group A, as the cause of diseases classified elsewhere; Z79.01 Long term (current) use of 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s; Z95.1 Presence of aortocoronary bypass graft; I47.10 Supraventricular tachycardia, unspecified; Z79.82 Long term (current) use of aspirin

== ENCOUNTER 2024-04-01 20:22 | Inpatient (IN) ==
[2024-04-01 21:10] LABS: Basophils # (auto) 0.08 K/uL (0.00-0.20); Basophils % (auto) 0.7 %; Eosinophils # (auto) 0.01 K/uL (0.00-0.50); Eosinophils % (auto) 0.1 %; Hematocrit (blood only) 42.1 % (37.0-47.0); Hemoglobin 14.3 g/dl (12.0-16.0); Immature Granulocytes # (auto) 0.06 K/uL (0.01-0.20); Immature Granulocytes % (auto) 0.5 %; Lymphocytes # (auto) 1.48 K/uL (1.20-3.40); Lymphocytes % (auto) 12.4 %; Mean Corpuscular Hemoglobin 28.5 pg (25.0-34.0); Mean Platelet Volume 10.2 fL (9.4-12.4); Monocytes # (auto) 1.83 K/uL (0.11-0.59); Monocytes % (auto) 15.4 %; Neutrophils # (auto) 8.44 K/uL (1.40-6.50); Neutrophils % (auto) 70.9 %; Platelet Count 205 K/uL (130-400); RDW Coefficient of Variation 15.4 % (11.5-14.5); RDW Standard Deviation 46.9 fL (36.4-46.3); Red Blood Count 5.01 M/uL (4.20-5.40)
[2024-04-01 21:13] LABS: Appearance Urine Turbid (Clear); Bacteria Urine Automated 4+ (None Seen); Bilirubin Urine Negative (Negative); Blood Urine 1+ (Negative); Color Urine Yellow; Epithelial Cell Urine Auto 0-2 /hpf (0-2); Glucose Urine UA Negative (Negative); Ketones Urine Negative (Negative); Leukocyte Esterase Urine 3+ (Negative); Nitrite Urine Negative (Negative); Protein Urine 1+ (Negative); RBC Urine Automated >20 /hpf (0-2); Specific Gravity Urine 1.015 (1.000-1.030); Urobilinogen Urine Negative (Negative); WBC Urine Automated >50 /hpf (0-5); pH Urine 6.5 (4.5-7.5)
[2024-04-01 21:18] LABS: Albumin Globulin Ratio 1.3 (0.9-2); Albumin Level 4.3 gm/dl (3.4-5.0); BUN Creatinine Ratio 16.9 (10-20); Bilirubin,Total 0.5 mg/dl (0.2-1.0); Calcium 9.2 mg/dl (8.6-10.3); Creatinine Clr Calc Pharmacy 29.6 ml/min; Est GFR (African American) 46.8 ml/min; Est GFR (Non-African American) 40.4 ml/min; Globulin 3.3 gm/dl (2.5-4.0); Total Protein 7.6 gm/dl (6.0-8.3)
[2024-04-01 21:32] LABS: Thyroid Stimulating Hormone 1.682 uIu/ml (0.300-4.500)
[2024-04-01] MEDS: cefTRIAXone SODIUM 2,000 MG/50 ML BAG IV STA (22:04)
[2024-04-01] MEDS: SODIUM CHLORIDE 0.9% 1,000 ML IV SCH (22:05)
[2024-04-01] MEDS: SODIUM CHLORIDE 0.9% 500 ML IV ONE (22:05)
[2024-04-01 23:11] LABS: Adenovirus PCR Not Detected (NotDetected); Bordetella parapertussis PCR Not Detected (NotDetected); Bordetella pertussis PCR Not Detected (NotDetected); Chlamydia pneumoniae PCR Not Detected (NotDetected); Coronavirus 229E PCR Not Detected (NotDetected); Coronavirus CoV-2 (COVID19)PCR DETECTED (NotDetected); Coronavirus HKU1 PCR Not Detected (NotDetected); Coronavirus NL63 PCR Not Detected (NotDetected); Coronavirus OC43PCR Not Detected (NotDetected); Human Metapneumovirus PCR Not Detected (NotDetected); Influenza A PCR Not Detected (NotDetected); Influenza B PCR Not Detected (NotDetected); Mycoplasma pneumoniae PCR Not Detected (NotDetected); Parainfluenza Virus 1 PCR Not Detected (NotDetected); Parainfluenza Virus 2 PCR Not Detected (NotDetected); Parainfluenza Virus 3 PCR Not Detected (NotDetected); Parainfluenza Virus 4 PCR Not Detected (NotDetected); Respiratory Syncytial VirusPCR Not Detected (NotDetected); Rhinovirus/Enterovirus PCR Not Detected (NotDetected)
--- NOTE | 2024-04-02 00:52 | Emergency Department Note ---
Impression & Plan Generalized weakness, Acute UTI (urinary tract infection), COVID-19 ED Provider Note NAME: PATRICIA MC AGE: 83 SEX: Female INFORMANT: Patient and family ED PROVIDER(S): Kilo Membreno MD CHIEF COMPLAINT: Generalized weakness PLAN: Disposition: Admitted Outpatient prescription management: none Referral: None MEDICAL DECISION MAKING: Patient present because generalized weakness. She suffered no injury from her sliding out of the chair. She had no focal findings. She had a subtle leukocytosis on CBC. Chemistry panel was unremarkable. Patient's urinalysis was very concerning for infection. Given her history of UTI and this generalized weakness I discussed further management in the hospital. Patient was gently hydrated and given IV Rocephin. Patient also had some sneezing and congestion. [facility], Dr. Delgado. Patient was evaluated in the ER and admitted for further management. Chest x-ray was unremarkable however patient's bio fire revealed the presence of COVID-19. Care/management discussed with: manager financial planning Level of care consideration(s): After review of the information above and other included data, I feel the patient requires escalation of care to admission Triage Nursing notes: reviewed and agree them. Vital Signs: reviewed and remarkable for hypertension Additional History obtained from: Family. They note that she was progressively weak throughout the day. Chronic Medical/Social Conditions affecting care: Coronary artery disease, CKD, CVA Prior/ Outside/ External records reviewed: none Differential Diagnosis: Infection, dehydration, metabolic abnormality, hypo/hyperglycemia, electrolyte disturbance, anemia, hypoxia, cardiac sources, intracerebral event, toxicologic, neurologic, as well as other pathologies. Diagnostics, independently interpreted by me: ECG: Twelve-lead ECG was sinus rhythm at 86 bpm. Left axis deviation and LVH. Lateral T wave inversion. Cardiac Monitoring: Cardiac monitoring ordered by me: The patient was placed on continuous cardiac monitoring and observed. It revealed a normal sinus rhythm at 85 beats per minute without ectopy or evidence of dysrhythmia. Medical decision rules: none Imaging studies: Chest x-ray. Findings: A chest x-ray was performed and revealed no pneumothorax, effusion, infiltrate, pulmonary edema, free air under the diaphragm, or wide mediastinum. Impression: No acute disease. HPI: 83 year old Female arrives for evaluation of generalized weakness. This started today and is progressive. Patient got to the point where she could not get up out of chair and slid out. She could not get up. Family had to help her. She denies any injury.. The patient also notes the following associated symptoms, dysuria, cough. The patient has been prescribed no medication for relieving factors. Current pain is rated as 0/10. Patient does have a history of UTI and had similar issues last year. Pt denies LOC, headache, fevers, chills, diaphoresis, visual changes, neck pain, chest pain, breathing difficulties, nausea, vomiting, abdominal pain, back pain, melena, hematochezia, numbness, lymphadenopathy, rash, or other complaints.. PAST MEDICAL HISTORY: See Below, CAD, UTI, diabetes PAST SURGICAL HISTORY: CABG, see below SOCIAL HISTORY: See Below, retired HOME MEDICATIONS: See Below ALLERGIES: See Below VITALS: See Below PHYSICAL EXAMINATION: GENERAL: Awake, alert, [id number], in no distress HENT: Normocephalic, atraumatic. Oropharynx unremarkable. EYES: Normal conjunctiva. Sclera non-icteric. NECK: Inspection normal. Non-tender. Supple. No nuchal rigidity. FROM. No masses. RESPIRATORY: Clear to auscultation. No wheezes. No rales. Normal respiratory effort. CARDIAC: Normal rate. Normal rhythm. No murmurs. No rubs. Extremities warm and well perfused. Pulses equal. No JVD. GI: Soft, non-distended. No tenderness to palpation. No rebound or guarding. No masses. RECTAL: Deferred. MUSCULOSKELETAL: Atraumatic. Chest examination reveals no tenderness. The back is symmetrical on inspection without obvious abnormality. There is no CVA tenderness to palpation. No joint edema. LOWER EXTREMITIES: Calves are equal size bilaterally and non-tender. No edema. No discoloration. NEURO: Normal sensorium. Generally weak but no focal sensory or motor deficits noted. SKIN: No rash or jaundice noted. PROCEDURES: none CRITICAL CARE: none OBSERVATION NOTE: none Past Med/Surg History Problem List (Updated 04/02/24 @ 00:51 by Kilo Membreno MD) COVID-19 (Acute) Acute UTI (urinary tract infection) (Acute) Generalized weakness (Acute) Elevated troponin (Acute) Vomiting (Acute) Generalized weakness (Acute) Encounter for pre-operative examination SVT (supraventricular tachycardia) (Acute) S/P CABG x 2 CKD (chronic kidney disease) stage 3, GFR 30-59 ml/min Presence of stent in left circumflex coronary artery Facial droop Confusion Acute confusion (Acute) Facial droop (Acute) Weakness (Acute) CVA (cerebral vascular accident) (Acute) Warfarin therapy started S/P MVR (mitral valve replacement) (~2017) Diabetes mellitus, type II NIDDM CAD (coronary artery disease) (Chronic) Dyslipidemia (Chronic) CKD (chronic kidney disease), stage III (Chronic) Essential hypertension (Chronic) Pulmonary hypertension (Chronic) Osteoporosis (Chronic) History of non-ST elevation myocardial infarction (NSTEMI) 2017 Medical History CAD (coronary artery disease) CKD (chronic kidney disease), stage III Diabetes mellitus, type II NIDDM Dyslipidemia Essential hypertension History of non-ST elevation myocardial infarction (NSTEMI) 2017 On 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 therapy warfarin daily Osteoporosis Pulmonary hypertension Surgical History History of cardiac cath x2--02/[address] [facility] with 1 stent placement [address] [facility] no stents, had CABG History of colonoscopy History of elbow surgery History of heart artery stent (~02/2019) 1 stent placed History of surgery on right wrist History of tonsillectomy and adenoidectomy History of transesophageal echocardiography (RODRIGO) (~07/23/19) S/P appendectomy S/P CABG x 2 2017 FOLLOW WITH [facility] S/P cataract surgery S/P hysterectomy S/P MVR (mitral valve replacement) (~2016) Family History Father Heart disease Mother Heart disease Stroke Brother Cancer Other No family history of adverse response to anesthesia No significant family history Social History Smoking Status: Never smoker Second Hand Exposure: Yes; Do You Dip or Chew Tobacco: No; Hx Alcohol Use: No Hx Substance Use: No Preferred Language: [place] Communication Ability: Effective Clinical Care Coordinator Required: No Beliefs That Will Affect Care: None marital status: / Current Living Situation: Family Current Living Situation Comment: [facility] Feels Safe at Home: Yes Assistive Devices: Cane Allergies Allergies Allergy/AdvReac Type Severity Reaction Status Date / Time YAHIR Inhibitors AdvReac Intermediate Cough Verified 07/28/23 23:02 lisinopril AdvReac Intermediate COUGHING Verified 07/28/23 23:02 Home Meds Home Medications Medication Instructions Recorded Confirmed metoprolol tartrate 25 mg tablet 25 mg PO BID 03/10/19 07/28/23 famotidine 20 mg tablet 20 mg PO BID 05/11/20 07/28/23 fluticasone propionate 50 2 spray intranasal DAILY PRN Nasal 05/11/20 07/28/23 mcg/actuation nasal Congestion spray,suspension (Flonase Allergy Relief) losartan 50 mg tablet (Cozaar) 75 mg PO QAM 05/11/20 07/28/23 amlodipine 2.5 mg tablet 2.5 mg PO QAM 06/16/21 07/28/23 rosuvastatin 20 mg tablet (Crestor) 20 mg PO HS 06/16/21 07/28/23 warfarin 5 mg tablet See Rx Instructions .Route .COMPLEX 06/16/21 07/28/23 glipizide 5 mg tablet 5 mg PO DAILYBB 07/28/23 07/28/23 Previous Rx's Medication Instructions Recorded aspirin 81 mg tablet,delayed 81 mg PO QAM 30 days #30 tabs 05/13/20 release (Toi Low Dose Aspirin) cephalexin 500 mg capsule 500 mg PO QID #18 caps 08/01/23 sodium di- and 2 tab PO QID #56 tabs 08/01/23 monophosphate-potassium phos monobasic 250 mg tablet (Phospha Neutral) Results & Data (ED) Vital Signs Vital Signs - 24 hr 04/01/24 20:29 04/01/24 21:30 04/01/24 22:00 Temperature 37.2 C Temperature Source Oral Pulse Rate 86 Pulse Rate [Apical] 84 88 Respiratory Rate 17 16 17 Respiratory Effort / Characteristics Non-Labored Respiratory Depth Normal Blood Pressure 164/66 H Blood Pressure [Right Arm] 151/81 H 146/81 H Blood Pressure Mean 98 Blood Pressure Mean [Right Arm] 104 102 Pulse Oximetry 95 95 95 Oxygen Delivery Method Room Air Room Air Room Air Sepsis Recent Fever Within 48 Hours No Sepsis New/Unexplained Change in Mental Status No Sepsis Action Taken by Nursing No Action Required 04/01/24 23:00 Temperature Temperature Source Pulse Rate Pulse Rate [Apical] 85 Respiratory Rate 20 Respiratory Effort / Characteristics Respiratory Depth Blood Pressure Blood Pressure [Right Arm] 149/76 H Blood Pressure Mean Blood Pressure Mean [Right Arm] 100 Pulse Oximetry 96 Oxygen Delivery Method Sepsis Recent Fever Within 48 Hours Sepsis New/Unexplained Change in Mental Status Sepsis Action Taken by Nursing Laboratory Data 04/01/24 20:41 04/01/24 20:41 Lab Results 04/01/24 04/01/24 Range/Units 20:41 22:10 WBC 11.90 H (4.8-10.8) K/ul RBC 5.01 (4.20-5.40) M/uL Hgb 14.3 (12.0-16.0) g/dl Hct 42.1 (37.0-47.0) % MCV 84.0 (80.0-100.0) fL MCH 28.5 (25.0-34.0) pg MCHC 34.0 (32.0-36.0) g/dL RDW Std Deviation 46.9 H (36.4-46.3) fL RDW Coeff of Matt 15.4 H (11.5-14.5) % Plt Count 205 (130-400) K/uL MPV 10.2 (9.4-12.4) fL Immature Gran % (Auto) 0.5 % Neut % (Auto) 70.9 % Lymph % (Auto) 12.4 % Gem % (Auto) 15.4 % Eos % (Auto) 0.1 % Baso % (Auto) 0.7 % Neut # (Auto) 8.44 H (1.40-6.50) K/uL Lymph # (Auto) 1.48 (1.20-3.40) K/uL Gem # (Auto) 1.83 H (0.11-0.59) K/uL Eos # (Auto) 0.01 (0.00-0.50) K/uL Baso # (Auto) 0.08 (0.00-0.20) K/uL Immature Gran # (Auto) 0.06 (0.01-0.20) K/uL Sodium 134 L (136-145) mmol/L Potassium 4.0 (3.5-5.1) mmol/L Chloride 102 (98-107) mmol/L Carbon Dioxide 23 (21-32) mmol/L Anion Gap 9 (3-11) BUN 21 (6-23) mg/dl Creatinine 1.24 H (0.6-1.2) mg/dl Est Cr Clr Drug Dosing 29.6 ml/min Est GFR ( Amer) 46.8 ml/min Est GFR (Non-Af Amer) 40.4 ml/min BUN/Creatinine Ratio 16.9 (10-20) Glucose 180 H (70-99(Fasting)) mg/dl Calcium 9.2 (8.6-10.3) mg/dl Total Bilirubin 0.5 (0.2-1.0) mg/dl AST 18 (13-39) U/L ALT 20 (7-52) U/L Alkaline Phosphatase 89 (34-104) U/L Total Protein 7.6 (6.0-8.3) gm/dl Albumin 4.3 (3.4-5.0) gm/dl Globulin 3.3 (2.5-4.0) gm/dl Albumin/Globulin Ratio 1.3 (0.9-2) TSH 1.682 (0.300-4.500) uIu/ml Urine Color Yellow Urine Appearance Turbid A (Clear) Urine pH 6.5 (4.5-7.5) Ur Specific [place] 1.015 (1.000-1.030) Urine Protein 1+ H (Negative) Urine Glucose (UA) Negative (Negative) Urine Ketones Negative (Negative) Urine Blood 1+ H (Negative) Urine Nitrite Negative (Negative) Urine Bilirubin Negative (Negative) Urine Urobilinogen Negative (Negative) Ur Leukocyte Esterase 3+ H (Negative) Urine WBC (Auto) >50 H (0-5) /hpf Urine RBC (Auto) >20 H (0-2) /hpf U Hyaline Cast (Auto) 3-5 H (0-2) /lpf U Epithel Cells (Auto) 0-2 (0-2) /hpf Urine Bacteria (Auto) 4+ H (None Seen) Adenovirus (PCR) Not Detected (NotDetected) B. pertussis DNA (PCR) Not Detected (NotDetected) B.parapertussis DNA PCR Not Detected (NotDetected) C. pneumoniae DNA (PCR) Not Detected (NotDetected) Coronavirus OC43 (PCR) Not Detected (NotDetected) Coronavirus HKU1 (PCR) Not Detected (NotDetected) Coronavirus 229E (PCR) Not Detected (NotDetected) SARS-CoV-2 (PCR) DETECTED A (NotDetected) Coronavirus NL63 (PCR) Not Detected (NotDetected) Human Metapneumovir PCR Not Detected (NotDetected) Influenza Type A (PCR) Not Detected (NotDetected) Influenza Type B (PCR) Not Detected (NotDetected) M. pneumoniae (PCR) Not Detected (NotDetected) Parainfluenza 1 (PCR) Not Detected (NotDetected) Parainfluenza 2 (PCR) Not Detected (NotDetected) Parainfluenza 3 (PCR) Not Detected (NotDetected) Parainfluenza 4 (PCR) Not Detected (NotDetected) RSV (PCR) Not Detected (NotDetected) Entero/Rhino (PCR) Not Detected (NotDetected) Administered Medications Sodium Chloride (Nss) 1,000 mls @ 125 mls/hr IV .Q8H JULES Stop: 05/01/24 21:59 Last Admin: 04/01/24 22:05 Dose: 125 mls/hr Documented By: CARRIE Discontinued Medications Sodium Chloride (Nss) 500 mls @ 999 mls/hr IV .Q31M ONE Stop: 04/01/24 22:22 Last Infusion: 04/01/24 23:47 Dose: Infused Documented By: Admin: 04/01/24 22:05 Dose: 999 mls/hr Documented By: CARRIE Ceftriaxone Sodium (Rocephin) 2,000 mg in 50 mls @ 100 mls/hr IV NOW STA Stop: 04/01/24 22:21 Last Infusion: 04/01/24 22:35 Dose: Infused Documented By: Admin: 04/01/24 22:04 Dose: 100 mls/hr Documented By: CARRIE Discharge Plan Visit Data Chief Complaint: Weakness Stated Complaint: WEAKNESS ED Provider: Kilo Membreno Discharge Problem: Generalized weakness, Acute UTI (urinary tract infection), COVID-19 Forms Stand Alone Forms: [facility] Prescriptions Prescriptions: No Action fluticasone propionate [Flonase Allergy Relief] 50 mcg/actuation spray,suspension 2 spray INTRANASAL DAILY PRN (Reason: Nasal Congestion) losartan [Cozaar] 50 mg tablet 75 mg PO QAM famotidine 20 mg Tablet 20 mg PO BID aspirin [Toi Low Dose Aspirin] 81 mg Tablet,Delayed Release (Dr/Ec) 81 mg PO QAM 30 Days Qty: 30 0RF metoprolol tartrate 25 mg tablet 25 mg PO BID glipizide 5 mg tablet 5 mg PO DAILYBB cephalexin 500 mg Capsule 500 mg PO QID Qty: 18 0RF Phospha 250 Neutral 250 mg Tablet 2 tab PO QID Qty: 56 0RF amlodipine 2.5 mg tablet 2.5 mg PO QAM warfarin 5 mg tablet See Rx Instructions .ROUTE .COMPLEX Rx Instructions: TAKES 5 MG ON SUN, TUE, & TH, THEN 2.5 MG MON, WED, FRI, & SAT. EVENINGS rosuvastatin [Crestor] 20 mg tablet 20 mg PO HS Referrals Referrals: Magy Segal MD [Primary Care Provider] -
--- NOTE | 2024-04-02 02:26 | History & Physical Report ---
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 Patient having cough for some time. No fevers. Yesterday she slid out of the chair and could not get up and EMS was called. When went to check the patient she was lying on the floor in the ER room. With head down. No obvious injury seen. Staff helped to get her back in the bed. She was able to move her extremities okay. Currently she is oriented to name only. But able to answer simple questions. Denies any headache. States vision is okay. States she has cold. Has cough. Denies chest pain or shortness of breath. Denies nausea. Denies abdominal pain. As per daughter patient was complaining of having cold symptoms. No nausea or vomiting or diarrhea as per daughter. Last couple of days she was not eating much and was weak. Usually ambulates without support. Currently seems comfortable lying in the bed and hemodynamics are okay.Notified daughter about fall. Confusion Mostly from UTI and COVID Patient status post fall at home and in the ER No obvious injury seen As patient is on Coumadin and aspirin will get a CT of the head Close monitor COVID Saturating okay COVID precautions Supportive care Will monitor Acute UTI Started on Rocephin Will follow urine cultures Gentle fluids History of CAD s/p CABG s/p stents Bioprosthetic mitral valve replacement On aspirin, statin and beta-paige History of embolic CVA Recurrent CVAs On aspirin Coumadin and statin Hypertension On metoprolol and losartan Will monitor Hyperlipidemia On statin History of PSVT On metoprolol We will monitor History of diabetes Hold glipizide Sliding scale Follow HbA1c levels Monitor blood sugars GA on CKD stage III Presented creatinine 1.2 Which is close to baseline Getting fluids Follow repeat labs in a.m. If worsening will hold losartan DVT prophylaxis On Coumadin Will follow PT/INR Disposition Med/telemetry CODE STATUS full code if there is chance of recovery as per my discussion with the daughter History of Present Illness Chief Complaint: Weakness and confusion Primary Care Provider: Magy Segal MD 83-year-old female with past medical history significant for type 2 diabetes, CKD stage III, hyperlipidemia, history of complicated bronchitis, pulmonary hypertension, asymmetric septal hypertrophy, hypertension, history of CAD s/p cardiac stent, status post CABG, status post mitral valve replacement with bioprosthetic valve, history of PSVT, partial idiopathic epilepsy, iron deficiency anemia, 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 Patient having cough for some time. No fevers. Yesterday she slid out of the chair and could not get up and EMS was called. When went to check the patient she was lying on the floor in the ER room. With head down. No obvious injury seen. Staff helped to get her back in the bed. She was able to move her extremities okay. Currently she is oriented to name only. But able to answer simple questions. Denies any headache. States vision is okay. States she has cold. Has cough. Denies chest pain or shortness of breath. Denies nausea. Denies abdominal pain. As per daughter patient was complaining of having cold symptoms. No nausea or vomiting or diarrhea as per daughter. Last couple of days she was not eating much and was weak. Usually ambulates without support. Currently seems comfortable lying in the bed and hemodynamics are okay. Notified daughter about fall. Past medical history. As mentioned above Past surgical history. Appendectomy. CABG. Colonoscopy. EGD. Elbow surgery following trauma. Right wrist fusion. Tonsillectomy and adenoidectomy. Total abdominal hysterectomy with removal of tubes. Social history. . No smoking. No alcohol use. No drug use. Family history. Niece had breast cancer. Sister had breast cancer. Brother had colon cancer. Brother had heart disorder. Father had heart disorder. Allergies Allergy/AdvReac Type Severity Reaction Status Date / Time YAHIR Inhibitors AdvReac Intermediate Cough Verified 07/28/23 23:02 lisinopril AdvReac Intermediate COUGHING Verified 07/28/23 23:02 Home Medications Medication Instructions Recorded Confirmed Type aspirin 81 mg tablet,delayed 81 mg PO DAILY 04/02/24 04/02/24 History release famotidine 20 mg tablet 20 mg PO DAILY 04/02/24 04/02/24 History fluticasone propionate 50 2 spray intranasal DAILY 04/02/24 04/02/24 History mcg/actuation nasal spray,suspension glipizide 5 mg tablet 5 mg PO DAILY 04/02/24 04/02/24 History losartan 50 mg tablet 50 mg PO DAILY 04/02/24 04/02/24 History metoprolol tartrate 25 mg tablet 25 mg PO BID 04/02/24 04/02/24 History rosuvastatin 20 mg tablet 20 mg PO DAILY 04/02/24 04/02/24 History warfarin 5 mg tablet (Jantoven) 5 mg PO UD 04/02/24 04/02/24 History Past Med/Surg History Problem List (Updated 04/02/24 @ 04:52 by Josephine Benton) Confusion COVID-19 (Acute) Acute UTI (urinary tract infection) (Acute) Generalized weakness (Acute) Elevated troponin (Acute) Vomiting (Acute) Generalized weakness (Acute) Encounter for pre-operative examination SVT (supraventricular tachycardia) (Acute) S/P CABG x 2 CKD (chronic kidney disease) stage 3, GFR 30-59 ml/min Presence of stent in left circumflex coronary artery Facial droop Confusion Acute confusion (Acute) Facial droop (Acute) Weakness (Acute) CVA (cerebral vascular accident) (Acute) Warfarin therapy started S/P MVR (mitral valve replacement) (~2017) Diabetes mellitus, type II NIDDM CAD (coronary artery disease) (Chronic) Dyslipidemia (Chronic) CKD (chronic kidney disease), stage III (Chronic) Essential hypertension (Chronic) Pulmonary hypertension (Chronic) Osteoporosis (Chronic) History of non-ST elevation myocardial infarction (NSTEMI) 2017 Medical History CAD (coronary artery disease) CKD (chronic kidney disease), stage III Diabetes mellitus, type II NIDDM Dyslipidemia Essential hypertension History of non-ST elevation myocardial infarction (NSTEMI) 2017 On 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 therapy warfarin daily Osteoporosis Pulmonary hypertension Surgical History History of cardiac cath x2--02/[address] [facility] with 1 stent placement [address] [facility] no stents, had CABG History of colonoscopy History of elbow surgery History of heart artery stent (~02/2019) 1 stent placed History of surgery on right wrist History of tonsillectomy and adenoidectomy History of transesophageal echocardiography (RODRIGO) (~07/23/19) S/P appendectomy S/P CABG x 2 2017 FOLLOW WITH [facility] S/P cataract surgery S/P hysterectomy S/P MVR (mitral valve replacement) (~2017) Family History Father Heart disease Mother Heart disease Stroke Brother Cancer Other No family history of adverse response to anesthesia No significant family history Social History Smoking Status: Never smoker Second Hand Exposure: Yes; Do You Dip or Chew Tobacco: No; Hx Alcohol Use: No Hx Substance Use: No Preferred Language: [place] Communication Ability: Effective Criminal Defense Attorney Required: No Beliefs That Will Affect Care: None marital status: / Current Living Situation: Family Current Living Situation Comment: DaughterIvett Other Information That Helps Us Care for You: No Feels Safe at Home: Yes Safety Concerns: Feels Safe At This Time Assistive Devices: Denture - Upper, Denture - Lower, Glasses and Walker Review of Systems Review of Systems: Other Patient somewhat confused. ROS per HPI. Physical Exam Physical Exam: General- Not in acute distress Head- atraumatic Eyes- PERRL, EOMI. ENT- oropharynx clear Neck- supple, no JVD. Lungs- clear to auscultation no wheezing or crackles Heart- regular rate and rhythm; no murmur, no gallop. Abdomen- normal bowel sounds, soft, nontender, no distension. Extremities- no pretibial edema, no erythema seen. Neuro- alert, oriented x 1; PERRL, EOMI; no facial palsy; no dysarthria; motor 4-5/5 bilaterally Skin- warm & dry Results & Data Results & Data Vital Signs (Past 12 Hours) Vital Signs Temp Pulse Pulse Resp BP BP Pulse Ox 04/02/24 01:00 80 17 143/78 H 97 04/02/24 00:30 75 17 157/81 H 96 04/02/24 00:00 79 14 154/84 H 95 04/01/24 23:00 85 20 149/76 H 96 04/01/24 22:00 88 17 146/81 H 95 04/01/24 21:30 84 16 151/81 H 95 04/01/24 20:29 37.2 C 86 17 164/66 H 95 O2 Del Method 04/02/24 01:00 04/02/24 00:30 04/02/24 00:00 Room Air 04/01/24 23:00 04/01/24 22:00 Room Air 04/01/24 21:30 Room Air 04/01/24 20:29 Room Air Diagnostic Findings Laboratory Results WBC 11.90 K/ul (4.8-10.8) H 04/01/24 20:41 RBC 5.01 M/uL (4.20-5.40) 04/01/24 20:41 Hgb 14.3 g/dl (12.0-16.0) 04/01/24 20:41 Hct 42.1 % (37.0-47.0) 04/01/24 20:41 MCV 84.0 fL (80.0-100.0) 04/01/24 20:41 MCH 28.5 pg (25.0-34.0) 04/01/24 20:41 MCHC 34.0 g/dL (32.0-36.0) 04/01/24 20:41 RDW Std Deviation 46.9 fL (36.4-46.3) H 04/01/24 20:41 RDW Coeff of Matt 15.4 % (11.5-14.5) H 04/01/24 20:41 Plt Count 205 K/uL (130-400) 04/01/24 20:41 MPV 10.2 fL (9.4-12.4) 04/01/24 20:41 Immature Gran % (Auto) 0.5 % 04/01/24 20:41 Neut % (Auto) 70.9 % 04/01/24 20:41 Lymph % (Auto) 12.4 % 04/01/24 20:41 [place] % (Auto) 15.4 % 04/01/24 20:41 Eos % (Auto) 0.1 % 04/01/24 20:41 Baso % (Auto) 0.7 % 04/01/24 20:41 Neut # (Auto) 8.44 K/uL (1.40-6.50) H 04/01/24 20:41 Lymph # (Auto) 1.48 K/uL (1.20-3.40) 04/01/24 20:41 [place] # (Auto) 1.83 K/uL (0.11-0.59) H 04/01/24 20:41 Eos # (Auto) 0.01 K/uL (0.00-0.50) 04/01/24 20:41 Baso # (Auto) 0.08 K/uL (0.00-0.20) 04/01/24 20:41 Immature Gran # (Auto) 0.06 K/uL (0.01-0.20) 04/01/24 20:41 Sodium 134 mmol/L (136-145) L 04/01/24 20:41 Potassium 4.0 mmol/L (3.5-5.1) 04/01/24 20:41 Chloride 102 mmol/L (98-107) 04/01/24 20:41 Carbon Dioxide 23 mmol/L (21-32) 04/01/24 20:41 Anion Gap 9 (3-11) 04/01/24 20:41 BUN 21 mg/dl (6-23) 04/01/24 20:41 Creatinine 1.24 mg/dl (0.6-1.2) H 04/01/24 20:41 Est Cr Clr Drug Dosing 29.6 ml/min 04/01/24 20:41 Est GFR ( Amer) 46.8 ml/min 04/01/24 20:41 Est GFR (Non-Af Amer) 40.4 ml/min 04/01/24 20:41 BUN/Creatinine Ratio 16.9 (10-20) 04/01/24 20:41 Glucose 180 mg/dl (70-99(Fasting)) H 04/01/24 20:41 Calcium 9.2 mg/dl (8.6-10.3) 04/01/24 20:41 Total Bilirubin 0.5 mg/dl (0.2-1.0) 04/01/24 20:41 AST 18 U/L (13-39) 04/01/24 20:41 ALT 20 U/L (7-52) 04/01/24 20:41 Alkaline Phosphatase 89 U/L (34-104) 04/01/24 20:41 Total Protein 7.6 gm/dl (6.0-8.3) 04/01/24 20:41 Albumin 4.3 gm/dl (3.4-5.0) 04/01/24 20:41 Globulin 3.3 gm/dl (2.5-4.0) 04/01/24 20:41 Albumin/Globulin Ratio 1.3 (0.9-2) 04/01/24 20:41 TSH 1.682 uIu/ml (0.300-4.500) 04/01/24 20:41 Urine Color Yellow 04/01/24 20:41 Urine Appearance Turbid (Clear) A 04/01/24 20:41 Urine pH 6.5 (4.5-7.5) 04/01/24 20:41 Ur Specific [place] 1.015 (1.000-1.030) 04/01/24 20:41 Urine Protein 1+ (Negative) H 04/01/24 20:41 Urine Glucose (UA) Negative (Negative) 04/01/24 20:41 Urine Ketones Negative (Negative) 04/01/24 20:41 Urine Blood 1+ (Negative) H 04/01/24 20:41 Urine Nitrite Negative (Negative) 04/01/24 20:41 Urine Bilirubin Negative (Negative) 04/01/24 20:41 Urine Urobilinogen Negative (Negative) 04/01/24 20:41 Ur Leukocyte Esterase 3+ (Negative) H 04/01/24 20:41 Urine WBC (Auto) >50 /hpf (0-5) H 04/01/24 20:41 Urine RBC (Auto) >20 /hpf (0-2) H 04/01/24 20:41 U Hyaline Cast (Auto) 3-5 /lpf (0-2) H 04/01/24 20:41 U Epithel Cells (Auto) 0-2 /hpf (0-2) 04/01/24 20:41 Urine Bacteria (Auto) 4+ (None Seen) H 04/01/24 20:41 Adenovirus (PCR) Not Detected (NotDetected) 04/01/24 22:10 B. pertussis DNA (PCR) Not Detected (NotDetected) 04/01/24 22:10 B.parapertussis DNA PCR Not Detected (NotDetected) 04/01/24 22:10 C. pneumoniae DNA (PCR) Not Detected (NotDetected) 04/01/24 22:10 Coronavirus OC43 (PCR) Not Detected (NotDetected) 04/01/24 22:10 Coronavirus HKU1 (PCR) Not Detected (NotDetected) 04/01/24 22:10 Coronavirus 229E (PCR) Not Detected (NotDetected) 04/01/24 22:10 SARS-CoV-2 (PCR) DETECTED (NotDetected) A 04/01/24 22:10 Coronavirus NL63 (PCR) Not Detected (NotDetected) 04/01/24 22:10 Human Metapneumovir PCR Not Detected (NotDetected) 04/01/24 22:10 Influenza Type A (PCR) Not Detected (NotDetected) 04/01/24 22:10 Influenza Type B (PCR) Not Detected (NotDetected) 04/01/24 22:10 M. pneumoniae (PCR) Not Detected (NotDetected) 04/01/24 22:10 Parainfluenza 1 (PCR) Not Detected (NotDetected) 04/01/24 22:10 Parainfluenza 2 (PCR) Not Detected (NotDetected) 04/01/24 22:10 Parainfluenza 3 (PCR) Not Detected (NotDetected) 04/01/24 22:10 Parainfluenza 4 (PCR) Not Detected (NotDetected) 04/01/24 22:10 RSV (PCR) Not Detected (NotDetected) 04/01/24 22:10 Entero/Rhino (PCR) Not Detected (NotDetected) 04/01/24 22:10 ECG Additional Comments: ECG. Sinus rhythm with first-degree AV block at rate of 86. Left axis deviation. Left ventricular hypertrophy with repolarization abnormality. No significant change was found. QTc 461. Code Status & VTE Plan VTE Prophylaxis Plan VTE Prophylaxis will be ordered: Yes
[2024-04-02] MEDS ORDERED: POLYETHYLENE (MIRALAX) 17 GM PACK PO PRN (04:54)
[2024-04-02] MEDS ORDERED: GLUCAGON FOR INJ 1 MG VIAL SQ PRN (04:54)
[2024-04-02] MEDS ORDERED: CARBOHYDRATES FOR HYPOGLYCEMIA PO PRN (04:54)
[2024-04-02] MEDS ORDERED: NITROGLYCERIN SL 0.4 MG/TAB TAB SL PRN (04:54)
[2024-04-02] MEDS ORDERED: GLUCOSE 10 TAB/TUBE PO PRN (04:54)
[2024-04-02] MEDS ORDERED: DEXTROSE 50% 50 ML SYRINGE IV PRN (04:54)
[2024-04-02] MEDS ORDERED: GLUCOSE 40% GEL 15 GM TUBE PO PRN (04:54)
[2024-04-02] MEDS ORDERED: ACETAMINOPHEN 325 MG TAB PO PRN (04:54)
[2024-04-02] MEDS: SODIUM CHLORIDE 0.9% 1,000 ML IV SCH (05:10)
--- NOTE | 2024-04-02 06:57 | XRay Report ---
XR chest 1V portable CLINICAL HISTORY: flu like symptoms COMPARISON STUDY: Chest radiograph July 28, 2023. FINDINGS: Median sternotomy wires and a left atrial appendage occluder device. Mild cardiomegaly is u nchanged. Pulmonary vascularity is normal. No consolidation to suggest pneumonia. Calcified left lung densities are unchanged and benign. Linear left basilar densities represent atelectasis. IMPRESSION: No acute cardiopulmonary findings. No change in appearance of the chest. ACT 112: Negative or not required by law. Electronically signed by: Celso Grady M.D. 04/02/2024 6:56 AM
[2024-04-02 07:20] LABS: Basophils # (auto) 0.08 K/uL (0.00-0.20); Basophils % (auto) 0.7 %; Eosinophils # (auto) 0.02 K/uL (0.00-0.50); Eosinophils % (auto) 0.2 %; Hematocrit (blood only) 37.8 % (37.0-47.0); Hemoglobin 12.6 g/dl (12.0-16.0); Immature Granulocytes # (auto) 0.04 K/uL (0.01-0.20); Immature Granulocytes % (auto) 0.4 %; Lymphocytes # (auto) 2.15 K/uL (1.20-3.40); Lymphocytes % (auto) 19.7 %; Mean Corpuscular Hemoglobin 28.2 pg (25.0-34.0); Mean Corpuscular Hgb Conc 33.3 g/dL (32.0-36.0); Mean Corpuscular Volume 84.6 fL (80.0-100.0); Mean Platelet Volume 10.3 fL (9.4-12.4); Monocytes # (auto) 2.05 K/uL (0.11-0.59); Monocytes % (auto) 18.8 %; Neutrophils # (auto) 6.55 K/uL (1.40-6.50); Neutrophils % (auto) 60.2 %; Platelet Count 168 K/uL (130-400); RDW Coefficient of Variation 15.5 % (11.5-14.5); RDW Standard Deviation 47.9 fL (36.4-46.3); Red Blood Count 4.47 M/uL (4.20-5.40); White Blood Count 10.89 K/ul (4.8-10.8)
[2024-04-02 07:38] LABS: BUN Creatinine Ratio 17.5 (10-20); Calcium 8.6 mg/dl (8.6-10.3); Creatinine Clr Calc Pharmacy 37.8 ml/min; Est GFR (Non-African American) 54.4 ml/min; Magnesium 2.1 mg/dl (1.7-2.4); Potassium 4.2 mmol/L (3.5-5.1)
[2024-04-02 07:39] LABS: Estimated Average Glucose 146 mg/dl; Hemoglobin A1C 6.7 % (4.5-5.6)
[2024-04-02 07:57] LABS: INR 1.3 (0.9-1.1)
--- NOTE | 2024-04-02 08:26 | CT Scan Report ---
CT OF THE HEAD WITHOUT CONTRAST CLINICAL HISTORY: fall, confusion COMPARISON STUDY: MRI of the brain May 11, 2020. Head CT May 11, 2020. CTA of the head Octob 2019. CT DOSE: 625.8 mGy.cm TECHNIQUE: Helical axial images of the head were obtained without IV contrast. Automated exposure con trol was utilized for the study. A dose lowering technique was utilized adhering to the principles o f ALARA. FINDINGS: No acute intracranial hemorrhage is present. Mild asymmetric dilatation of the left lateral ventricle is due to old infarcts within the left basal ganglia. White matter hypodensity suggests sm all vessel disease. Old left basal ganglia infarcts are noted. There are no findings to suggest acute dural sinus thrombosis or acute territorial infarct. Several old lacunar infarcts within the right c erebellar hemisphere are unchanged. There are no calvarial fractures. Is mild sinus mucosal thickenin g. IMPRESSION: 1. No acute intracranial findings. 2. Old left basal ganglia infarcts. 3. No calvarial fractures. ACT 112: Negative or not required by law. Electronically signed by: Celso Grady M.D. 04/02/2024 8:24 AM
--- OUTSIDE RECORDS SUMMARY | 2024-04-02 09:22 | External Medical Summary | Summary of Care ---
Author Name Unknown Organization [facility] Address [address] [facility] [place] [address] Phone [phone] Care Team Providers Care Material Requirements Planning Manager Name Role Phone Magy Segal MD Primary Care Provider + Reason for Visit * Reason Comments Dosage Adjustment Via Phone (anticoag Cl inic) Encounter Details Date Type Department Care Team (Late st Contact Info) Description 03/28/2024 6:00 AM EDT Anticoagulation Centralized Clinical Pharmacy Services, Bogdan [address] [place] [address] [place] [address] S/P MVR (mitral valve replacement)*; Bioprosthetic mitral valve replacement, current hospitalization Allergies Active Allergy Reactions Criticality Noted Date Comments Haseeb Inhibitors Cough 04/04/2010 documented as of this encounter (statuses as of 03/28/2024) Medications Medication Sig Dispensed Refills Start Date End Date Status aspirin 81 MG chewable tablet Take 1 Tab by mouth daily. 30 Tab 3 09/28/2016 Active OneTouch Delica Lancets 33GIndications:Type 2 diabetes mellitus with hemoglobin A1c goal of less than 7.5% ([facility]) Test blood sugar once daily 100 Each 3 06/15/2020 Active OneTouch Verio In Vitro Strip (Glucose Blood)Indications:T ype 2 diabetes mellitus with hemoglobin A1c goal of less than 7.5% (HCC) Test blood sugar once daily 100 Strip 3 07/21/2020 Active Loratadine 10 MG Oral Tablet (Claritin)Indicatio ns:Acute otitis media, left Take 1 Tablet by mouth in the morning. 05/21/2023 Active Additional Information Patient not taking.Reported on 08/02/2023 Rosuvastatin Calcium 20 MG Oral Tablet (Crestor)Indication s:Dyslipidemia, goal LDL below 70 TAKE 1 TABLET BY MOUTH ONCE DAILY 90 Tablet 3 07/03/2023 Active Phospha 250 Neutral 155-852-130 MG Oral Tablet Take 2 Tablets by mouth in the morning and 2 Tablets at noon and 2 Tablets in the evening and 2 Tablets before bedtime. Active Losartan Potassium 50 MG Oral Tablet (Cozaar) TAKE 1 & 1/2 TABLETS BY MOUTH EVERY DAY 135 Tablet 3 08/13/2023 Active Fluticasone Propionate 50 MCG/ACT Nasal Suspension (Flonase)Indication s:Chronic rhinitis Administer 2 Sprays into each nostril at bedtime. 16 g 1 11/09/2023 Active Additional Information Patient not taking.Reported on 03/13/2024 glipiZIDE 5 MG Oral Tablet (Glucotrol) TAKE 1 TABLET BY MOUTH IN THE MORNING 30 MINUTES BEFORE A MEAL 30 Tablet 5 01/30/2024 Active Metoprolol Tartrate 25 MG Oral Tablet (Lopressor)Indicati ons:Essential hypertension with goal blood pressure less than 140/90,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 TAKE 1 TABLET BY MOUTH TWICE DAILY 180 Tablet 1 03/26/2024 Active Warfarin Sodium 5 MG Oral Tablet (Jantoven)Indicatio ns:Coronary artery disease involving minto coronary artery of minto heart without angina pectoris,S/P MVR (mitral valve replacement) TAKE 1 TABLET BY MOUTH ONCE DAILY OR DIRECTED BY COAG CLINIC 90 Tablet 3 03/26/2024 Active Famotidine 20 MG Oral Tablet (Pepcid) Take 1 Tablet by mouth daily. 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 0 10/03/2016 Overview: ICD-10 update of inactive term S/P MVR (mitral valve replacement) 09/28/2016 Overview: Bioprosthetic 29mm epic valve Coronary artery disease invo lving minto coronary artery of minto heart without angina pectoris 09/12/2016 Overview: 80% [...] as of this encounter (statuses as of 03/28/2024) Resolved Problems Problem Noted Date Diagnosed Date [...] as of this encounter (statuses as of 03/28/2024) Immunizations Name Administration Dates Next Due COVID-19 mRNA, LNP-s, No Pre serve, 2-Dose Series (Quellan) 08/27/2021,09/22/2020,09/01/2020 Hepatitis B, 20+ yrs 09/12/2016 Pneumococcal Conjugate Vacc, 13 Valent (Prevnar) 06/03/2015 Pneumococcal Polysaccharide PPV23 (Pneumovax) 09/03/2006 Season Influenza, Quad, PF, Adjuvanted, 65+ Yrs, IM (FLUAD) 05/06/2020 Seasonal Influenza, Quadriva lent Hd (Fluzone Hd) 08/29/2022,07/25/2021 TDAP, Age 7 and older, IM (Adacel) 09/13/2022, Zoster Vaccine Recombinant (Shingrix) 11/21/2022 ,09/13/2022 documented as of this encounter Social History Tobacco Use Types Packs/Day Years Used Date Smoking Tobacco: Never Smokeless Tobacco: Never Alcohol Use Standard Drinks/Week Comments No 0 (1 standard drink = 0.6 oz pur e alcohol) PHQ-2 Answer Date Recorded PHQ Adult Total Score 0 08/02/2023 Hunger Vital Sign Answer Date Recorded Within the past 12 months, y ou worried that your food would run out before you got the money to buy more. Never true 08/02/19 24 Within the past 12 months, t he food you bought just didn't last and you didn't have money to get more. Never true 08/02/2023 Childcare Answer Date Recorded Do you feel overwhelmed with taking care of a child, family member or friend? No 08/02/2023 Does your family need help f inding childcare? (Household - for ages 0-17 years) Not on file 08/02/2023 Clothing Answer Date Recorded Have you been unable to get clothing when it was really needed? No 08/02/2023 Is your family able to get c lothes or diapers when needed? (Household - for ages 0-17 years) Not on file 08/02/2023 Personal Safety Answer Date Recorded Do you feel unsafe or have concerns for your saf ety? No 08/02/2023 Do you have concerns for you r family's safety? (Household - for ages 0-17 years) Not on file 08/02/2023 Utilities Answer Date Recorded Do you have trouble paying y our heating, water, or electric bill? No 08/02/2023 Is your family able to pay t he heat, water, or electric bill? (Household - for ages 0-17 years) Not on file 08/02/2023 Does your family have access to good internet? (Household - for ages 0-17 years) Not on file 08/02/2023 Employment Status Answer Date Recorded Are you unemployed or without regular income? No 08/02/2023 Does the household have a re gular source of income? (Household - for ages 0-17 years) Not on file 08/02/2023 Social Connections Answer Date Recorded How often do you feel lonely or isolated from th ose around you? Never 08/02/2023 Financial Resource Strain Answer Date R ecorded Do you have any trouble payi ng for your medications, or do you think you might in the future? No 08/02/2023 Does your family have troubl e paying for medicine? (Household - for ages 0-17 years) Not on file 08/02/2023 Transportation Needs Answer Date Record ed READ ONLY Do you have troubl e getting a ride to medical visits or work? Never True 08/02/2023 Does your family have a hard time getting a ride to doctors visits? (Household - for ages 0-17 years) Not on file 08/02/2023 Has lack of transportation k ept you from medical appointments, meetings, work, or from getting things needed for daily living? Check all that apply. (Adult - for ages 18 years and over) Not on file 08/02/2023 Do you (or your family) have trouble finding or paying for a ride (transportation)? (Household - for ages 0-17 years) Not on file 08/02/2023 Housing Stability Answer Date Recorded Do you currently live in a s helter or have no steady place to sleep at night? No 08/02/2023 READ ONLY Do you think you a re at risk of becoming homeless? No 08/02/2023 Does your family worry about paying for your home or becoming homeless? (Household - for ages 0-17 years) Not on file 0 08/02/2023 Are you homeless or worried that you might be in the future? (Adult - for ages 18 years and over) Not on file Are you (or your family) mimi eless or worried that you might be in the future? (Household - for ages 0-17 years) Not on file Food Insecurity Answer Date Recorded Do you need food for this week? No 08/02/2023 Are you able to get enough f ood for your family? (Household - for ages 0-17 years) Not on file 08/02/2023 Does your family need food t his week? (Household - for ages 0-17 years) Not on file 08/02/2023 Do you always have enough fo od for your family? (Household - for ages 0-17 years) Not on file 08/02/2023 Sex and Gender Information Value Date Recorded [...] as of this encounter Progress Notes * Juliocesar Oakley CPhT - 03/28/2024 8:29 AM EDT Contacts Contact Date/Time Type Contact Phone/Fax 03/28/2024 08:27 AM EDT Phone (Outgoing) IVETT VILLAFUERTE (Emergency Contact) [phone] (M) Spoke to Patient - Spoke with patient's daughter Ivett Subjective Patient Findings Negatives: Signs/symptoms of thrombosis, [...] date communicated as noted by Pharmacist: Yes JULIOCESAR OAKLEY CPhT 03/28/2024, 8:29 AM * Nancy Medrano RPh - 03/28/2024 8:11 AM EDT Coumadin Clinic (region specific) Objective Current Warfarin Dose As of 03/28/2024 Warfarin maintenance plan: 5 mg (5 mg x 1) every Sun, Tue, Darya; 2.5 mg (5 mg x 0.5) all other days INR Result As of 03/28/2024 INR goal: 2.0-3.0 INR used for dosin.4 (03/27/2024) Assessment & Plan Warfarin Plan As of 03/28/2024 Full warfarin instructions: 5 mg every Sun, Tue, Darya; 2.5 mg all other days No change documented: Nancy Medrano RPh Next INR check: 04/17/2024 Repeat PT/INR in 3 week(s) Weekly dose: not changed Additional Dosing Information: Description L(Formerly [facility], [facility]1983) Tech to contact patient with dose instructions as noted. Nacny Medrano RPh 03/28/2024, 8:11 AM documented in this encounter Plan of Treatment Upcoming Encounters Date Type Department Care Team (Late st Contact Info) Description 04/18/2024 6:00 AM EDT Anticoagulation Centralized Clinical Pharmacy Services, Bogdan Coles [address] [place] [address] [place] [address] [place] [address] 09/30/2024 10:00 AM EDT Office Visit General Internal Medicine State Jesus White [address] [facility] [place] [address] Magy Segal MD [address] [facility] [place] [address] Scheduled Procedures Name Priority Associated Diagnoses Date/Ti me COLONOSCOPY FLEXIBLE PROXIMA L DIAGNOSTIC Recall Family history of colorectal cancer Health Maintenance Due Date Last Done Comments Hepatitis B Vaccine (2 of 3 - 19+ 3-dose series) 10/10/2016 09/12/2016 Adult Wellness Visit 04/14/2020 04/14/2019 *BISPHONATE OR OTHER ACCEPTABLE MEDICATION NEEDED FOR OSTEOPOROSIS (REFER TO SMARTSET #1146) 02/18/2022 Diabetic Eye Exam 05/27/2022 05/27/2021, , 01/30/2019, Additional history exists Diabetic Foot Exam 02/23/2024 02/22/2023, 0 02/16/2022, 01/04/2021, Additional history exists COVID-19 Vaccine ( season) 2024 08/27/2021, 09/22/2020, 09/01/2020 Influenza Vaccine (FLU shot) (#1) 2024 08/29/2022, 07/25/2021, 05/06/2020, Additional history exists Albumin/Creatinine Ratio 05/25/2024 023, 08/20/2020, 02/10/2020, Additional history exists Depression Screening 08/02/2024 08/02/2023 CKD PHOS USE SMARTSET 53082 08/07/202407/17, 2023, 05/21/2023, Additional history exists GFR 09/24/2024 03/27/2024, 07/16, 06/12/2023, Additional history exists HbA1c 09/24/2024 03/27/2024, 1112/2022, 10/23/2022, Additional history exists CKD HGB USE SMARTSET 08575 03/27/202503/27, 03/27/2024, 08/07/2023, Additional history exists DTap/Tdap Vaccines (3 - Td or Tdap) 09/13/2032 09/13/2022, 11/01/2011 Pneumococcal Vaccine: 65+ Years Completed 06/03/2015, 09/03/2006 RETIRED - COLONOSCOPY-EVERY 5 YRS AGES 18-100 Discontinued 06/22/2021, 06/22/2021, 04/12/2015, Additional history exists Zoster Vaccines Completed 11/21/2022, 09/13/2022 HPV (Gardasil) Vaccine Aged Out No lo nger eligible based on patient's age to complete this topic MENINGOCOCCAL (MENACTRA/MENVEO) Aged Out No longer eligible based on patient's age to complete this topic documented as of this encounter Medical Devices Implanted Type Area Salesforce Specialist Device Identifier Shelf Expiration Date Model / Serial / Lot Marker Coronary Am-Sd - [id number] Implanted:Qty : 2 on 09/22/2016 by Dejon Carlos MD at [place] [facility] N/A: Aorta [employer] 06/14/2019 AM-SD / / [id number] Atriclip 35mm [id number] - [id number] Implanted:Qty : 1 on 09/22/2016 by Dejon Carlos MD at OR [facility] N/A: Heart ATRICURE 06/15/2018 [id number] / / [id number] Valve Heart Mitral Epic 27mm - [id number] - [id number] Implanted:Qty : 1 on 09/22/2016 by Dejon Carlos MD at OR [facility] N/A: Heart ST TAMIKO : CARDIOVASCULAR 04/26/2020 [id number] 0 / [id number] / Sut Steel 6 M654g - [id number] Implanted:Qty : 4 on 09/22/2016 by Dejon Carlos MD at OR [facility] N/A: Sternum JNJ : [employer] 06/14/2021 [id number] / / [id number] documented as of this encounter Visit Diagnoses Diagnosis S/P MVR (mitral valve replacement)- Primary Heart valve replaced by other means Bioprosthetic mitral valve replacement, current hospitalization Heart valve replaced by other means documented in this encounter Advance Directives Documents on File Type Date Recorded 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 Question Answer Comments Discussion of Advance Directives occurred with: Patient Does the patient have a Living Will? No Does the patient have Health Care Power of Attor maria g? No Healthcare Agents on File Name Relationship Healthcare Agent Relationshi p Communication Ivett Villafuerte Adult Child First Alternate Health Care Agent (per Health Care Power of Radiotelegraph Operator document) Care Teams Material Requirements Planning Manager Relationship Specialty Start Date End Date Magy Segal MD [address] [place] [address] PCP - General Internal Medicine 08/08/19 documented as of this encounter
--- OUTSIDE RECORDS SUMMARY | 2024-04-02 09:22 | External Medical Summary | Summary of Care ---
Author Name Unknown Organization [facility] Address [address] [place] [address] Phone [phone] Care Team Providers Care Onion Farmer Name Role Phone Magy Segal MD Primary Care Provider + Encounter Details Date Type Department Care Team (Late st Contact Info) Description 04/01/2024 Orders Only Outcomes Research Department [address] [place] [address] Anisha Benitez CHRA MyCode Research Other*[id number] Allergies Active Allergy Reactions Criticality Noted Date Comments Haseeb Inhibitors Cough 04/04/2010 documented as of this encounter (statuses as of 04/01/2024) Medications Medication Sig Dispensed Refills Start Date [...] Oral Tablet (Jantoven)Indicatio ns:Coronary artery disease involving rampart coronary artery of rampart heart without angina pectoris,S/P MVR (mitral valve replacement) TAKE 1 TABLET BY MOUTH ONCE DAILY OR DIRECTED BY COAG CLINIC 90 Tablet 3 03/26/2024 Active Famotidine 20 MG Oral Tablet (Pepcid) Take 1 Tablet by mouth daily. 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 0 10/03/2016 Overview: ICD-10 update of inactive term S/P MVR (mitral valve replacement) 09/28/2016 Overview: Bioprosthetic 29mm epic valve Coronary artery disease invo lving rampart coronary artery of rampart heart without angina pectoris 09/12/2016 Overview: 80% [...] as of this encounter (statuses as of 04/01/2024) Resolved Problems Problem Noted Date Diagnosed Date [...] as of this encounter (statuses as of 04/01/2024) Immunizations Name Administration Dates Next Due COVID-19 mRNA, LNP-s, No Pre serve, 2-Dose Series ([employer]) 08/27/2021,09/22/2020,09/01/2020 Hepatitis B, 20+ yrs 09/12/2016 Pneumococcal [...] Care Team (Late st Contact Info) Description 04/17/2024 7:05 AM EDT Laboratory Lab [facility]le[facility] [address] [place] [address] [facility] Home Draw [address] [place] [address] [address] 04/18/2024 6:00 AM EDT Anticoagulation Centralized Clinical Pharmacy Services, Bogdanmacy Coles [address] [place] [address] [place] [address] [place] [address] 09/30/2024 10:00 AM EDT Office Visit General Internal Medicine State [place] [address] [place] [address] Magy Segal MD [address] [place] [address] Scheduled Orders Name Type Priority Associated Diagnoses Orde r Schedule MYCODE SUBSEQUENT ADULT Lab Routine MyCode Research Other*[id number] Every 6 Months for 2 Occurrences starting 04/01/2024 until 04/21/2025 Scheduled Procedures Name Priority Associated Diagnoses Date/Ti [...] Screening 08/02/2024 08/02/2023 CKD PHOS USE SMARTSET 17002 08/07/202407/17, 2023, 05/21/2023, Additional history exists GFR 09/24/2024 03/27/2024, 07/16, 06/12/2023, Additional history exists HbA1c 09/24/2024 03/27/2024, 12/2022, 10/23/2022, Additional history exists CKD HGB USE SMARTSET 10766 03/27/202503/27, 03/27/2024, 08/07/2023, Additional history exists DTap/Tdap [...] this encounter Medical Devices Implanted Type Area Museum Educator Device Identifier Shelf Expiration Date Model / Serial / Lot Marker Coronary [facility] - [id number] Implanted:Qty : 2 on 09/22/2016 by Dejon Carlos MD at OR [facility] N/A: Aorta [employer]ESSEE [employer] 06/14/2019 [facility] / / [id number] Atriclip 35mm [id number] - [id number] Implanted:Qty : 1 on 09/22/2016 by Dejon Carlos MD at OR [facility] N/A: Heart ATRICURE 06/15/2018 [id number] / / [id number] Valve Heart Mitral Epic 27mm - [id number] - [id number] Implanted:Qty : 1 on 09/22/2016 by Dejon Carlos MD at OR [facility] N/A: Heart ST TAMIKO : CARDIOVASCULAR 04/26/2020 [id number] 0 / [id number] / Sut Steel 6 M654g - [id number] Implanted:Qty : 4 on 09/22/2016 by Dejon Carlos MD at OR [facility] N/A: Sternum JNJ : [employer] 06/14/2021 M654G / / [id number] documented as of this encounter Visit Diagnoses Diagnosis MyCode Research Other*[id number] documented in this encounter Advance Directives Documents on File Type Date Recorded 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
--- OUTSIDE RECORDS SUMMARY | 2024-04-02 09:22 | External Medical Summary ---
Author Name Unknown Address Unknown Organization [id number]:[facility] [place] [address] [place] [address] Laboratory Report Ordering Provider Test Date Status MIGUEL MACHUCA 03/27/2024 07:16:00 Final Observation Date Value Abnormality Reference (Units ) Status WBC, Total 03/27/2024 07:16:00 10.09 4.00-10.8 0 (K/uL) Final RBC 03/27/2024 07:16:00 4.29 3.85-5.15 (M/uL) Final Hemoglobin 03/27/2024 07:16:00 12.2 12.0-15.3 (g/dL) Final HCT 03/27/2024 07:16:00 38.2 36.0-45.2 (%) Final MCV 03/27/2024 07:16:00 89.0 81.5-97.5 (fL) Final MCH 03/27/2024 07:16:00 28.4 27.0-34.0 (pg) Final MCHC 03/27/2024 07:16:00 31.9 32.0-36.0 (g/dL) Final RDW 03/27/2024 07:16:00 15.6 11.5-15.5 (%) Final Platelets 03/27/2024 07:16:00 200 140-400 (K /uL) Final MPV 03/27/2024 07:16:00 11.6 6.6-11.1 ( fL) Final Performing Location [facility] [place] [address] [place] [address]
--- OUTSIDE RECORDS SUMMARY | 2024-04-02 09:22 | External Medical Summary ---
Author Name Unknown Address Unknown Organization K01:LAB[facility]AT[facility] - [address] [facility] [address]. [facility] [place] [address] Laboratory Report Ordering Provider Test Date Status MIGUEL MACHUCA 03/27/2024 07:16:00 Final Observation Date Value Abnormality Reference (Units ) Status HbA1C 03/27/2024 07:16:00 6.7 Above high normal 4. 0-5.6 (%) Final The use of HbA1c to monitor glycemic status is based on normal hemoglobin and HbA composition. This test should not be used in patients with abnormal hemoglobin that affects the half life of the red blood cell or the in vivo glycation rates. Glucose, estimated average 03/27/2024 07:16:00 146 Above high normal <126 (mg/dL) Shaquille cabral Performing Location LAB[facility]ATORY [facility] [address] [facility] [place] [address]
--- OUTSIDE RECORDS SUMMARY | 2024-04-02 09:22 | External Medical Summary ---
Author Name Unknown Address Unknown Organization K01:[facility] [place] [address] [place] [address] Laboratory Report Ordering Provider Test Date Status MIGUEL MACHUCA 03/27/2024 07:16:00 Final Observation Date Value Abnormality Reference (Units ) Status LDL, (direct) 03/27/2024 07:16:00 30 <=129 (mg/dL) Final LDL Cholesterol Reference Ra nges (mg/dL):
<70 Target level for high risk ASCVD patient
<100 Optimal for general population
100-129 Near optimal for general population
130-159 Borderline high
160-189 High
>=190 Very high Performing Location LABORATORY [facility] - [address] [place] [address]
--- OUTSIDE RECORDS SUMMARY | 2024-04-02 09:22 | External Medical Summary ---
Author Name Unknown Address Unknown Organization K0G:[facility] [place] [address] [place] [address] Laboratory Report Ordering Provider Test Date Status MIGUEL MACHUCA 03/27/2024 07:16:00 Final Observation Date Value Abnormality Reference (Units ) Status BUN 03/27/2024 07:16:00 19 6-20 (mg/dL) Final Creatinine 03/27/2024 07:16:00 1.2 Above high normal 0.5-1.0 (mg/dL) Final Glomerular filtration rate/1.73 sq M.predicted [Volume Rate/Area] in Serum, Plasma or Blood by Creatinine-based formula (CKD-EPI) 03/27/2024 07:16:00 43 Below low normal >=60 (mL/min) Final eGFR is calculated based on the CKD-EPI 2020 equation. Sodium 03/27/2024 07:16:00 140 135-146 (m mol/L) Final Potassium 03/27/2024 07:16:00 4.3 3.5-5.1 (m mol/L) Final Cl 03/27/2024 07:16:00 108 Above high normal 98 -107 (mmol/L) Final CO2 03/27/2024 07:16:00 23 22-32 (mmo l/L) Final Anion gap 03/27/2024 07:16:00 9 7-15 (mmol /L) Final Glucose 03/27/2024 07:16:00 136 Above high normal 70 -120 (mg/dL) Final Albumin 03/27/2024 07:16:00 3.4 Below low normal 3.8 -5.0 (g/dL) Final AST (Aspartate aminotransferase) 03/27/2024 07:16:00 19 10-35 (U/L) Fin al Alk Phos 03/27/2024 07:16:00 93 35-130 (U/ L) Final Bilirubin, Total 03/27/2024 07:16:00 <0.2 <=1 .2 (mg/dL) Final Calcium 03/27/2024 07:16:00 8.8 8.4-10.2 ( mg/dL) Final Protein 03/27/2024 07:16:00 5.7 Below low normal 6.0 -8.3 (g/dL) Final ALT (Alanine aminotransferase) 03/27/2024 07:16:00 31 10-35 (U/L) Shaquille cabral Performing Location LAB[facility]ATORY [place] [address] [place] [address]
--- OUTSIDE RECORDS SUMMARY | 2024-04-02 09:22 | External Medical Summary ---
Author Name Unknown Address Unknown Organization K0G:[facility] [place] [address] [place] [address] Laboratory Report Ordering Provider Test Date Status OLIVE WOLFF 03/27/2024 07:16:00 Final Standing order for pt/inr. < br/>Please draw pt/inr every 1 to 4 weeks as requested
Results to [facility]

Warfarin Therapy
INR: 2.0-3.0 conventional anticoagulation
INR: 2.5-3.5 high intensity anticoagulation Observation Date Value Abnormality Reference (Units ) Status PT 03/27/2024 07:16:00 26.5 Above high normal 11 .6-15.2 (seconds) Final INR 03/27/2024 07:16:00 2.4 Above high normal 0. 8-1.2 Final Performing Location [facility] [place] [address] [place] [address]
--- OUTSIDE RECORDS SUMMARY | 2024-04-02 09:22 | External Medical Summary | Summary of Care ---
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 Name Role Phone Sven Segal MD Primary Care Provider + Reason for Visit * Reason Comments eRx-Medication Refill Encounter Details Date Type Department Care Team (Late st Contact Info) Description 03/25/2024 Refill General Internal Medicine [facility] [place] [address] [facility] [place] [address] [facility] [address] Essential hypertension with goal blood pressure less than 140/90; 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 Allergies Active Allergy Reactions Criticality Noted Date Comments Haseeb Inhibitors Cough 04/04/2010 documented as of this encounter (statuses as of 03/27/2024) Medications Medication Sig Dispensed Refills Start Date End Date Status aspirin 81 MG chewable tablet Take 1 Tab by mouth daily. 30 Tab 3 09/28/2016 Active OneTouch Delica Lancets 33GIndications:Ty pe 2 diabetes mellitus with hemoglobin A1c goal of less than 7.5% ([facility]) Test blood sugar once daily 100 Each 3 06/15/2020 Active OneTouch Verio In Vitro Strip (Glucose Blood)Indications :Type 2 diabetes mellitus with hemoglobin A1c goal of less than 7.5% ([facility]) Test blood sugar once daily 100 Strip 3 07/21/2020 Active Loratadine 10 MG Oral Tablet (Claritin)Indicat ions:Acute otitis media, left Take 1 Tablet by mouth in the morning. 05/21/2023 Active Additional Information Patient not taking.Reported on 08/02/2023 Rosuvastatin Calcium 20 MG Oral Tablet (Crestor)Indicati [...] Active Fluticasone Propionate 50 MCG/ACT Nasal Suspension (Flonase)Indicati ons:Chronic rhinitis Administer 2 Sprays into each nostril [...] Oral Tablet (Jantoven)Indicat ions:Coronary artery disease involving kashia coronary artery of kashia heart without angina pectoris,S/P MVR (mitral valve replacement) TAKE 1 TABLET BY MOUTH ONCE DAILY OR DIRECTED BY COAG CLINIC 90 Tablet 3 03/26/2024 Active Famotidine 20 MG Oral Tablet (Pepcid) Take 1 Tablet by mouth daily. 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 0 10/03/2016 Overview: ICD-10 update of inactive term S/P MVR (mitral valve replacement) 09/28/2016 Overview: Bioprosthetic 29mm epic valve Coronary artery disease invo lving kashia coronary artery of kashia heart without angina pectoris 09/12/2016 Overview: 80% [...] as of this encounter (statuses as of 03/27/2024) Resolved Problems Problem Noted Date Diagnosed Date [...] as of this encounter (statuses as of 03/27/2024) Immunizations Name Administration Dates Next Due COVID-19 mRNA, LNP-s, No Pre serve, 2-Dose Series ([employer]) 08/27/2021,09/22/2020,09/01/2020 Hepatitis B, 20+ yrs 09/12/2016 Pneumococcal Conjugate Vacc, 13 Valent (Prevnar) 06/03/2015 Pneumococcal Polysaccharide PPV23 (Pneumovax) 09/03/2006 Season Influenza, Quad, PF, Adjuvanted, 65+ Yrs, IM (FLUAD) 05/06/2020 Seasonal Influenza, Quadriva lent Hd (Fluzone Hd) 08/29/2022,07/25/2021 Seasonal Influenza, Trivalen t, (IIV3), with Preserv, (Fluzone) 04/22/2003 TDAP, Age 7 and older, IM (Adacel) [...] encounter Miscellaneous Notes * Telephone Encounter - Sven Segal MD - 03/27/2024 10:55 AM EDT Signed Prescriptions: Disp Refills Metoprolol Tartrate 25 MG Oral Tablet (Lop*180 Ta*1 Sig: TAKE 1 TABLET BY MOUTH TWICE DAILY Authorizing Provider: SVEN SEGAL Ordering User: ELMA AVILES Famotidine 20 MG Oral Tablet (Pepcid) 90 Tab*3 Sig: Take 1 Tablet by mouth daily. Authorizing Provider: SVEN SEGAL * Telephone Encounter - Interface, E-Rx Ss Inbound - 03/27/2024 6:02 AM EDT Pending Prescriptions: Disp Refills Famotidine 20 MG Oral Tablet (Pepcid) 90 Tab*3 Sig: Take 1 Tablet by mouth daily. Signed Prescriptions: Disp Refills Metoprolol Tartrate 25 MG Oral Tablet (Lop*180 Ta*1 Sig: TAKE 1 TABLET BY MOUTH TWICE DAILY Authorizing Provider: SVEN SEGAL Ordering User: ELMA AVILES * Telephone Encounter - Elma Aviels, [facility] - 03/26/2024 3:44 PM EDTPending Prescriptions: Disp Refills Famotidine 20 MG Oral Tablet (Pepcid) 90 Tab*3 Sig: Take 1 Tablet by mouth daily. Signed Prescriptions: Disp Refills Metoprolol Tartrate 25 MG Oral Tablet (Lop*180 Ta*1 Sig: TAKE 1 TABLET BY MOUTH TWICE DAILY Authorizing Provider: SVEN SEGAL Ordering User: ELMA AVILES * Telephone Encounter - Elma Aviles [facility] - 03/26/2024 3:38 PM EDT I did not refill famotidine 20mg BID due to patient's diminished renal function. Dosage adjustment recommended. Use with caution in renal impairment due to increased risk of JAVA SDET adverse reactions andQT prolongation. Creatinine clearance cannot be calculated (Patient's most recent lab result is older than the maximum 180 days allowed.) EGFR Date Value Ref Range Status 2023 38.1 Famotidine Oral Dosage Adjustments in Altered Kidney Function: If usual dose is 20mg BID and CrCl is 30 to < 60 then reduce dose to 20mg daily New order pended for 20mg daily Please approve if appropriate then route back to me and I will inform patient. Pending Prescriptions: Disp Refills Famotidine 20 MG Oral Tablet (Pepcid) [Ph*90 Tab*3 Sig: Take 1 Tablet by mouth daily. Signed Prescriptions: Disp Refills Metoprolol Tartrate 25 MG Oral Tablet (Lop*180 Ta*1 Sig: TAKE 1 TABLET BY MOUTH TWICE DAILY Authorizing Provider: SVEN SEGAL Ordering User: ELMA AVILES Last Visit: 03/13/2024 (in office), 10/17/2019 (telemedicine) Next Visit: 09/30/2024 If no future appointments scheduled, and last appointment is greater than a year ago, please schedule patient for a follow-up appointment Last date the medication was ordered: 04-03-23 Pharmacy: [id number] Is this request for a controlled substance? No Urine Drug Screen:No results found. However, due to the size of the patient record, not all encounters were searched. Please check Results Review for a complete set of results. Patient Phone Numbers Labs: Lab Results Component Value Date/Time CREAT 1.31 (A) 2023 12:00 AM CREAT 1.0 06/04/2020 03:53 PM POTASSIUM 4.0 2023 12:00 AM POTASSIUM 4.0 06/04/2020 03:53 PM TSH 5.75 (H) 09/15/2016 11:09 AM LDL 24 05/21/2023 03:16 PM LDL 02/09/2020 09:14 AM Uninterpretable, recommend direct LDL cholesterol testing. LDL 118. 03/24/1996 02:30 PM ALT 31 06/12/2023 08:00 AM ALT 20 06/04/2020 03:53 PM HGBA1C 6.8 (H) 05/21/2023 03:16 PM HGBA1C 6.4 (H) 02/09/2020 09:14 AM Elma Aviles, Adwoa.Ph. Clinical Pharmacist [facility] ([facility]) [address] [place] [address], [place] [address] [place] [address] MC: [phone] [id number] 03/26/2024,3:40 PM documented in this encounter Plan of Treatment Upcoming Encounters Date Type Department Care Team (Late st Contact Info) Description 03/28/2024 6:00 AM EDT Anticoagulation [facility], [address] [place] [address] [facility], [address] [place] [address] 09/30/2024 10:00 AM EDT Office Visit General Internal Medicine [facility] [place] [address] [place] [address] Sven Segal MD 200 [facility] [place] [address] Scheduled Procedures Name Priority Associated Diagnoses Date/Ti [...] 05/27/2022 05/27/2021, , 01/30/2019, Additional history exists HbA1c 11/19/2023 05/21/2023, 10/14, 08/29/2022, Additional history exists Diabetic Foot Exam 02/23/2024 02/22/2023, 0 02/16/2022, 01/04/2021, Additional history exists COVID-19 Vaccine ( season) 2024 08/27/2021, 09/22/2020, 09/01/2020 Influenza Vaccine (FLU shot) (#1) 2024 08/29/2022, 07/25/2021, 05/06/2020, Additional history exists Albumin/Creatinine Ratio 05/25/2024 023, 08/20/2020, 02/10/2020, Additional history exists Depression Screening 08/02/2024 08/02/2023 CKD PHOS USE SMARTSET 69090 08/07/202407/17, 2023, 05/21/2023, Additional history exists GFR 09/24/2024 03/27/2024, 07/16, 06/12/2023, Additional history exists CKD HGB USE SMARTSET 80255 03/27/202503/27, 03/27/2024, 08/07/2023, Additional history exists DTap/Tdap [...] this encounter Medical Devices Implanted Type Area Grades 1 Thru 5 Teacher Device Identifier Shelf Expiration Date Model / Serial / Lot Marker Coronary Amgm-Sd - [id number] Implanted:Qty : 2 on 09/22/2016 by Dejon Carlos MD at [place] [facility] [place]/A: Aorta [employer] 06/14/2019 AM-SD / / [id number] Atriclip 35mm [id number] - [id number] Implanted:Qty : 1 on 09/22/2016 by Dejon Carlos MD at [place] [facility] [place] N/A: Heart ATRICURE 06/15/2018 [id number] / / [id number] Valve Heart Mitral Epic 27mm - [id number] - [id number] Implanted:Qty : 1 on 09/22/2016 by Dejon Carlos MD at [place] [facility] [place] N/A: Heart ST TAMIKO : CARDIOVASCULAR 04/26/2020 [id number] / [id number] / Sut Steel 6 M654g - [id number] Implanted:Qty : 4 on 09/22/2016 by Dejon Carlos MD at [place] [facility] [place] N/A: Sternum JNJ : [employer] 06/14/2021 [id number] / / [id number] documented as of this encounter Visit Diagnoses Diagnosis Essential hypertension with goal blood pressure less than 140/90 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 documented in this encounter Advance Directives Documents on File Type Date Recorded 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
--- OUTSIDE RECORDS SUMMARY | 2024-04-02 09:22 | External Medical Summary | Summary of Care ---
Author Name Unknown Organization [facility] Address [address] [facility] [place] [address] Phone [phone] Care Team Providers Care Disabilities Services Officer Name Role Phone Magy Segal MD Primary Care Provider + Reason for Visit * Reason Comments eRx-Medication Refill Encounter Details Date Type Department Care Team (Late st Contact Info) Description 03/25/2024 Refill General Internal Medicine [facility] [place] 200 [facility] [place] [address] Magy Segal MD 200 [facility] [address] Essential hypertension with goal blood pressure less [...] A1c goal of less than 7.5% ([facility]) Test blood sugar once daily 100 Each 3 06/15/2020 Active OneTouch Verio In Vitro Strip (Glucose Blood)Indications :Type 2 diabetes mellitus with hemoglobin A1c goal of less than 7.5% ([facility]) Test blood sugar once [...] Oral Tablet (Jantoven)Indicat ions:Coronary artery disease involving chuloonawick coronary artery of chuloonawick heart without angina pectoris,S/P MVR (mitral valve [...] (NSTEMI) 07/20/2017 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 therapy 0 10/03/2016 Overview: ICD-10 update of inactive term S/P MVR (mitral valve replacement) 09/28/2016 Overview: Bioprosthetic 29mm epic valve Coronary artery disease invo lving chuloonawick coronary artery of chuloonawick heart without angina pectoris 09/12/2016 Overview: 80% [...] mRNA, LNP-s, No Pre serve, 2-Dose Series ([employer]) 08/27/2021,09/22/2020,09/01/2020 Hepatitis B, 20+ yrs 09/12/2016 Pneumococcal [...] encounter Miscellaneous Notes * Telephone Encounter - Elma Aviles, [facility] - 03/28/2024 9:41 AM EDT Patient informed to decrease to famotidine 20mg ONCE a day. Elma Aviles, Adwoa.Ph. Clinical Pharmacist [facility] ([facility]) [address] [place] [address], [address] [place] [address] : [id number] 03/28/2024,9:41 AM * Telephone Encounter - Magy Segal MD - 03/27/2024 10:55 AM EDT Signed Prescriptions: Disp Refills Metoprolol Tartrate 25 MG Oral Tablet (Lop*180 Ta*1 Sig: TAKE 1 TABLET BY MOUTH TWICE DAILY Authorizing Provider: MAGY SEGAL Ordering User: ELMA AVILES Famotidine 20 MG Oral Tablet (Pepcid) 90 Tab*3 Sig: Take 1 Tablet by mouth daily. Authorizing Provider: MAGY SEGAL * Telephone Encounter - Interface, E-Rx Ss Inbound - 03/27/2024 6:02 AM EDT Pending Prescriptions: Disp Refills Famotidine 20 MG Oral Tablet (Pepcid) 90 Tab*3 Sig: Take 1 Tablet by mouth daily. Signed Prescriptions: Disp Refills Metoprolol Tartrate 25 MG Oral Tablet (Lop*180 Ta*1 Sig: TAKE 1 TABLET BY MOUTH TWICE DAILY Authorizing Provider: MAGY SEGAL Ordering User: ELMA AVILES * Telephone Encounter - Elma Aviles [facility] - 03/26/2024 3:44 PM EDTPending Prescriptions: Disp Refills Famotidine 20 MG Oral Tablet (Pepcid) 90 Tab*3 Sig: Take 1 Tablet by mouth daily. Signed Prescriptions: Disp Refills Metoprolol Tartrate 25 MG Oral Tablet (Lop*180 Ta*1 Sig: TAKE 1 TABLET BY MOUTH TWICE DAILY Authorizing Provider: MAGY SEGAL User: ELMA AVILES * Telephone Encounter - Elma Aviles RP - 03/26/2024 3:38 PM EDT I did not refill famotidine 20mg BID due to patient's diminished renal function. Dosage adjustment recommended. 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 Creatinine clearance cannot [...] TABLET BY MOUTH TWICE DAILY Authorizing Provider: MAGY SEGAL Ordering User: ELMA AVILES Last Visit: 03/13/2024 (in office), 10/17/2019 (telemedicine) Next Visit: 09/30/2024 If no future appointments scheduled, and last appointment is greater than a year ago, please schedule patient for a follow-up appointment Last date the medication was ordered: 04-03-23 Pharmacy: [id number] Is this [...] PM HGBA1C 6.4 (H) 02/09/2020 09:14 AM Adwoa Copeland.Ph. Clinical Pharmacist [facility] ([facility]) [address] [place] [address] [address] [place] [address] MC: [id number] 03/26/2024,3:40 PM documented in this encounter Plan of Treatment Upcoming Encounters Date Type Department Care Team (Late st Contact Info) Description 04/18/2024 6:00 AM EDT Anticoagulation [facility], Bogdan Coles [address] [place] [address] [place] [address] [facility], [address] [place] [address] 09/30/2024 10:00 AM EDT Office Visit General Internal Medicine [facility] [place] [facility] [address] Magy Segal MD 200 [facility] [place] [address] Scheduled Procedures Name Priority Associated Diagnoses Date/Ti [...] Screening 08/02/2024 08/02/2023 CKD PHOS USE SMARTSET 70301 08/07/202407/17, 2023, 05/21/2023, Additional history exists GFR 09/24/2024 03/27/2024, 07/16, 06/12/2023, Additional history exists HbA1c 09/24/2024 03/27/2024, 12/2022, 10/23/2022, Additional history exists CKD HGB USE SMARTSET 77562 03/27/202503/27, 03/27/2024, 08/07/2023, Additional history exists DTap/Tdap [...] this encounter Medical Devices Implanted Type Area Instructional Aide Device Identifier Shelf Expiration Date Model / Serial / Lot Marker Coronary Am-Sd - [id number] Implanted:Qty : 2 on 09/22/2016 by Dejon Carlos MD at [place] [facility] [place] N/A: Aorta [employer] 06/14/2019 AM-SD / / [id number] Atriclip 35mm [id number] - [id number] Implanted:Qty : 1 on 09/22/2016 by Dejon Carlos MD at [place] [facility] [place] N/A: Heart ATRICURE 06/15/2018 [id number] / / [id number] Valve Heart Mitral Epic 27mm - [id number] - [id number] Implanted:Qty : 1 on 09/22/2016 by Dejon Carlos MD at [place] [facility] [place] N/A: Heart ST TAMIKO : CARDIOVASCULAR 04/26/2020 [id number] 0 / [id number] / Sut Steel 6 M654g - [id number] Implanted:Qty : 4 on 09/22/2016 by Dejon Carlos MD at [place] [facility] [place] N/A: Sternum JNJ : [employer] 06/14/2021 [id number] / / [id number] documented as of this encounter Visit Diagnoses Diagnosis Essential hypertension with goal blood pressure less than 140/90 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 documented in this encounter Advance Directives Documents on File Type Date Recorded 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
--- OUTSIDE RECORDS SUMMARY | 2024-04-02 09:22 | External Medical Summary ---
Author Name Unknown Address Unknown Organization K01:LABORATORY [place] [address] [facility] [address] [place] [address] Laboratory Report Ordering Provider Test Date Status MIGUEL MACHUCA 03/27/2024 07:16:00 Final Observation Date Value Abnormality Reference (Units) Status Hepatitis B virus surface Ab [Units/volume] in Serum or Plasma by Immunoassay 03/27/2024 07:16:00 <3.5 (mIU/mL) Final Hepatitis B virus surface Ab [Presence] in Serum by Immunoassay 03/27/2024 07:16:00 Negative Final HEPATITIS B SURFACE ANTIBODY, INTERPRETATION 03/27/2024 07:16:00 NOT immune to Hepatitis B Virus Final POSITIVE: >=11.5 mIU/mL
INDETERMINATE: 8.5-<11.5 mIU/mL
NEGATIVE: <8.5 mIU/mL Performing Location [facility] [place] [facility] [place] [address]
--- OUTSIDE RECORDS SUMMARY | 2024-04-02 09:22 | External Medical Summary ---
Author Name Unknown Address Unknown Organization [id number]:LAB[facility]ATORY [facility] [place] - [address] [facility] [address] [place] [address] Laboratory Report Ordering Provider Test Date Status MIGUEL MACHUCA 03/27/2024 07:16:00 Final Observation Date Value Abnormality Reference (Units ) Status Triglyceride 03/27/2024 07:16:00 252 Above high normal <=174 (mg/dL) Final Triglyceride Reference Range s (mg/dL):
<150 Acceptable
150-174 Borderline high
175-499 High
>=500 Very high Cholesterol 03/27/2024 07:16:00 109 <200 (mg /dL) Final Total Cholesterol Reference Ranges (mg/dL):
<200 Desirable
200-239 Borderline high
>=240 High HDL 03/27/2024 07:16:00 28 Below low normal >49 (mg/dL) Final HDL Cholesterol Reference Ra nges (mg/dL):
>=60 High (Desirable)
<50 Low (Undesirable) For Females
<40 Low (Undesirable) For Males NON-HDL CHOLESTEROL 03/27/2024 07:16:00 81 <=159 (mg/dL) Final Non-HDL Cholesterol Referenc e Range (mg/dL):
<100 Target level for high risk ASCVD patient
<130 Optimal for general population
130-159 Near optimal for general population
160-189 Borderline High
190-219 High
>=220 Very High Performing Location LABORATORY [facility] - [address] [place] [address]
--- OUTSIDE RECORDS SUMMARY | 2024-04-02 09:22 | External Medical Summary | Summary of Care ---
Author Name Unknown Organization [facility] Address [address] [facility] [place] [address] Phone [phone] Care Team Providers Care Holistic Health Practitioner Name Role Phone Sven Segal MD Primary Care Provider + Reason for Visit * Reason Comments eRx-Medication Refill Encounter Details Date Type Department Care Team (Late st Contact Info) Description 03/25/2024 Refill General Internal Medicine [facility] [place] [address] [facility] [place] [address] Sven Segal MD 200 [facility] [address] Essential hypertension with goal blood pressure less [...] goal of less than 7.5% ([facility]) Test blood sugar once daily 100 Each 3 06/15/2020 Active OneTouch Verio In Vitro Strip (Glucose Blood)Indications :Type 2 diabetes mellitus with hemoglobin A1c goal of less than 7.5% ([facility]) Test blood sugar once daily [...] Oral Tablet (Jantoven)Indicat ions:Coronary artery disease involving [place] coronary artery of [place] heart without angina pectoris,S/P MVR (mitral valve [...] 07/20/2017 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 of 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 therapy 0 10/03/2016 Overview: ICD-10 update of inactive term S/P MVR (mitral valve replacement) 09/28/2016 Overview: Bioprosthetic 29mm epic valve Coronary artery disease invo lving [place] coronary artery of [place] heart without angina pectoris 09/12/2016 Overview: 80% [...] mRNA, LNP-s, No Pre serve, 2-Dose Series ([employer]) 08/27/2021,09/22/2020,09/01/2020 Hepatitis B, 20+ yrs 09/12/2016 Pneumococcal [...] AVILES * Telephone Encounter - Elma Aviles [facility] - 03/26/2024 3:44 PM EDTPending Prescriptions: Disp Refills Famotidine 20 MG Oral Tablet (Pepcid) 90 Tab*3 Sig: Take 1 Tablet by mouth daily. Signed Prescriptions: Disp Refills Metoprolol Tartrate 25 MG Oral Tablet (Lop*180 Ta*1 Sig: TAKE 1 TABLET BY MOUTH TWICE DAILY Authorizing Provider: SVEN SEGAL Ordering User: ELMA AVILES * Telephone Encounter - Elma Aviles, [facility] - 03/26/2024 3:38 PM EDT I did not refill famotidine 20mg BID due to patient's diminished renal function. Dosage adjustment recommended. 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 Creatinine clearance cannot [...] date the medication was ordered: 04-03-23 Pharmacy: [id number] [address] Is this request for [...] Clinical Pharmacist Centralized Clinical [facility]acy Services ([facility]) [address] [place] [address], [address] [place] [address] MC: [phone] 03/26/2024,3:40 PM documented in this encounter Plan of Treatment Upcoming Encounters Date Type Department Care Team (Late st Contact Info) Description 03/28/2024 6:00 AM EDT Anticoagulation Centralized Clinical Pharmacy Services, Bogdan Coles [address] [place] [address] [place] [address] [facility], [address] [place] [address] 09/30/2024 10:00 AM EDT Office Visit General Internal Medicine [facility] [address] [place] [address] Sven Segal MD 200 [facility] [place] [address] Scheduled Procedures Name Priority Associated Diagnoses Date/Ti [...] 01/30/2019, Additional history exists HbA1c 11/19/2023 05/21/2023, 04, 08/29/2022, Additional history exists GFR 01/30/2024 2023, 05/17, 05/29/2023, Additional history exists Diabetic Foot Exam 02/23/2024 02/22/2023, 0 02/16/2022, 01/04/2021, Additional history exists COVID-19 Vaccine ( season) 2024 08/27/2021, 09/22/2020, 09/01/2020 Influenza Vaccine (FLU shot) (#1) 2024 08/29/2022, 07/25/2021, 05/06/2020, Additional history exists Albumin/Creatinine Ratio 05/25/2024 023, 08/20/2020, 02/10/2020, Additional history exists Depression Screening 08/02/2024 08/02/2023 CKD HGB USE SMARTSET 12102 08/07/202403/27, 03/27/2024, 08/07/2023, Additional history exists CKD PHOS USE SMARTSET 06068 08/07/202407/17, 2023, 05/21/2023, Additional history exists DTap/Tdap Vaccines (3 - [...] this encounter Medical Devices Implanted Type Area Transcribing Machine Mechanic Device Identifier Shelf Expiration Date Model / Serial / Lot Marker Coronary Amgm-Sd - [id number] Implanted:Qty : 2 [place] 09/22/2016 [place] [facility] [place] Aorta [employer]ESSEE [employer] 06/14/2019 [facility] / / [id number] Atriclip 35mm [id number] - [id number] Implanted:Qty : 1 on 09/22/2016 by Dejon Carlos [place] [facility] [place]: Heart ATRICURE 06/15/2018 [id number] / / [id number] Valve Heart Mitral Epic 27mm - [id number] - [id number] Implanted:Qty : 1 on 09/22/2016 [place]jon Carlos [place] [facility] [place]/A: Heart ST TAMIKO : CARDIOVASCULAR 04/26/2020 [id number] 0 / [id number] / Sut Steel 6 M654g - [id number] Implanted:Qty : 4 on 09/22/2016 by Dejon Carlos [place] [facility] [place]: Sternum JNJ : [employer] 06/14/2021 [id number] / / [id number] documented as of this encounter Visit Diagnoses Diagnosis Essential hypertension with goal blood pressure less than 140/90 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 documented in this encounter Advance Directives Documents on File Type Date 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
--- OUTSIDE RECORDS SUMMARY | 2024-04-02 09:22 | External Medical Summary ---
Author Name Unknown Address Unknown Organization K0G[facility] [address] [place] [address] Laboratory Report Ordering Provider Test Date Status MIGUEL MACHUCA 03/27/2024 07:16:00 Final Observation Date Value Abnormality Reference (Units ) Status SYNC LEUKOCYTES IN BLOOD BY AUTOMATED COUNT 03/27/2024 07:16:00 10.09 4.00-10.80 (K/uL) Final Segs 03/27/2024 07:16:00 39.3 Below low normal 40.0-75.0 (%) Final Lymphs % 03/27/2024 07:16:00 44.2 Above high normal 18.0-42.0 (%) Final Monos 03/27/2024 07:16:00 12.5 Above high normal 1.0-11.0 (%) Final Eosinophils 03/27/2024 07:16:00 3.3 0.0-6.0 (%) Final Basos 03/27/2024 07:16:00 0.7 0.0-2.0 (%) Final Absolute Segs 03/27/2024 07:16:00 3.97 1.80-7.70 (K/uL) Final Lymphs, absolute 03/27/2024 07:16:00 4.46 1.00-4.80 (K/ul) Final Monos, Abs 03/27/2024 07:16:00 1.26 Above high normal 0.00-1.10 (K/uL) Final Eos, Abs 03/27/2024 07:16:00 0.33 0.00-0.70 (K/uL) Final Basos, Abs 03/27/2024 07:16:00 0.07 0.00-0.20 (K/uL) Final Performing Location [facility]ORY [facility] [place] [address] [place] [address]
--- OUTSIDE RECORDS SUMMARY | 2024-04-02 09:23 | External Medical Summary | Summary of Care ---
Author Name Unknown Organization [facility] Address [address] [place] [facility] [place] [place] [address] Phone [phone] Care Team Providers Care Communications Tech Name Role Phone Sven Segal MD Primary Care Provider + Reason for Visit * Reason Comments eRx-Medication Refill Encounter Details Date Type Department Care Team (Late st Contact Info) Description 01/28/2024 Refill General Internal Medicine [facility] 200 [facility] [place] [address] Sven Segal MD 200 [place] [address] Allergies Active Allergy Reactions Criticality Noted Date Comments Haseeb Inhibitors Cough 04/04/2010 documented as of this encounter (statuses as of 01/30/2024) Medications Medication Sig Dispensed Refills Start Date [...] once daily 100 Strip 3 07/21/2020 Active Warfarin Sodium 5 MG Oral Tablet (Jantoven)Indicat ions:Coronary artery disease involving [place] coronary artery of [place] heart without angina pectoris,S/P MVR (mitral valve replacement) TAKE ONE TABLET BY MOUTH DAILY or as directed by coag clinic 90 Tablet 3 03/30/2023 Active Additional Information Patient taking differently: TAKE ONE TABLET BY MOUTH DAILY or as directed by coag clinic, Reported on 08/02/2023 Famotidine 20 MG Oral Tablet (Pepcid) TAKE ONE TABLET BY MOUTH IN THE MORNING AND ONE BEFORE BEDTIME 180 Tablet 3 04/03/2023 Active Loratadine 10 MG Oral Tablet (Claritin)Indicat [...] EVERY DAY 135 Tablet 3 08/13/2023 Active Metoprolol Tartrate 25 MG Oral Tablet (Lopressor)Indica tions:Essential hypertension with goal blood pressure less than 140/90,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 TAKE 1 TABLET BY MOUTH TWICE DAILY 180 Tablet 1 09/22/2023 Active Fluticasone Propionate 50 MCG/ACT Nasal Suspension (Flonase)Indicati ons:Chronic rhinitis Administer 2 Sprays into each nostril at bedtime. 16 g 1 11/09/2023 Active glipiZIDE 5 MG Oral Tablet (Glucotrol) TAKE 1 TABLET BY MOUTH IN THE MORNING 30 MINUTES BEFORE A MEAL 30 Tablet 5 01/30/2024 Active glipiZIDE 5 MG Oral Tablet (Glucotrol) TAKE 1 TABLET BY MOUTH IN THE MORNING 30 MINUTES BEFORE A MEAL 90 Tablet 1 08/28/2023 01/30/20 24 Discontinued documented as of this encounter (statuses as of 01/30/2024) Active Problems Problem Noted Date Diagnosed Date [...] (NSTEMI) 07/20/2017 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 half-way current use of 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 therapy 0 10/03/2016 Overview: ICD-10 update of inactive term S/P MVR (mitral valve replacement) 09/28/2016 Overview: Bioprosthetic 29mm epic valve Coronary artery disease invo lving [place] coronary artery of [place] heart without angina pectoris 09/12/2016 Overview: 80% [...] as of this encounter (statuses as of 01/30/2024) Resolved Problems Problem Noted Date Diagnosed Date [...] as of this encounter (statuses as of 01/30/2024) Immunizations Name Administration Dates Next Due COVID-19 mRNA, LNP-s, No Pre serve, 2-Dose Series ([employer]) 08/27/2021,09/22/2020,09/01/2020 Hepatitis B, 20+ yrs 09/12/2016 Pneumococcal [...] encounter Miscellaneous Notes * Telephone Encounter - Mara Kee RPh - 01/30/2024 10:00 AM EDT Signed Prescriptions: Disp Refills glipiZIDE 5 MG Oral Tablet (Glucotrol) 30 Tab*5 Sig: TAKE 1 TABLET BY MOUTH IN THE MORNING 30 MINUTES BEFORE A MEALAuthorizing Provider: SVEN SEGAL User: MARA KEE documented in this encounter Plan of Treatment Upcoming Encounters Date Type Department Care Team (Late st Contact Info) Description 02/05/2024 7:10 AM EDT Laboratory Lab [facility] [address] [place] [address] [facility], [facility] Mobile Home Draw [address] [place] [address] 02/06/2024 6:00 AM EDT Anticoagulation Centralized Clinical Pharmacy Services, Bogdan Coles [address] [place] [address] [place] [address] [facility], [address] [place] [address] 03/13/2024 10:00 AM EDT Office Visit General Internal Medicine [facility] Caraballo [address] [facility] [place] [address] Sven Segal MD 200 [facility] [place] [address] Scheduled Procedures Name Priority Associated Diagnoses Date/Ti me COLONOSCOPY FLEXIBLE PROXIMA L DIAGNOSTIC Recall Family history of colorectal cancer Health Maintenance Due Date Last Done Comments Hepatitis B Vaccine (2 of 3 - 19+ 3-dose series) 10/10/2016 09/12/2016 *BISPHONATE OR OTHER ACCEPTABLE MEDICATION NEEDED FOR OSTEOPOROSIS (REFER TO SMARTSET #1146) 02/18/2022 Diabetic Eye Exam 05/27/2022 05/27/2021, , 01/30/2019, Additional history exists COVID-19 Vaccine ( season) 2023 08/27/2021, 09/22/2020, 09/01/2020 HbA1c 11/19/2023 05/21/2023, 04, 08/29/2022, Additional history exists GFR 01/30/2024 2023, 05/17, 05/29/2023, Additional history exists Diabetic Foot Exam 02/23/2024 02/22/2023, 0 02/16/2022, 01/04/2021, Additional history exists Influenza Vaccine (FLU shot) (#1) 2024 08/29/2022, 07/25/2021, 05/06/2020, Additional history exists Albumin/Creatinine Ratio 05/25/2024 023, 08/20/2020, 02/10/2020, Additional history exists Depression Screening 08/02/2024 08/02/2023 CKD HGB USE SMARTSET 61318 08/07/202408/07, 2023, 06/12/2023, Additional history exists CKD PHOS USE SMARTSET 09818 08/07/202407/17, 2023, 05/21/2023, Additional history exists DTaP,Tdap,and Td Vaccines [...] this encounter Medical Devices Implanted Type Area Bulk Plant Agent Device Identifier Shelf Expiration Date Model / Serial / Lot Marker Coronary [facility]-Sd - [id number] Implanted:Qty : 2 on 09/22/2016 by Dejon Carlos MD [place] [facility] [place] N/A: Aorta [employer]SEE BI[employer] 06/14/2019 AM-[facility] / / [id number] Atriclip 35mm [id number] - [id number] Implanted:Qty : 1 on 09/22/2016 by Dejon Carlos MD at [place] [facility] [place] N/A: Heart ATRICURE 06/15/2018 [id number] / / [id number] Valve Heart Mitral Epic 27mm - [id number] - [id number] Implanted:Qty : 1 on 09/22/2016 by Dejon Carlos MD at OR [facility] N/A: Heart ST TAMIKO : CARDIOVASCULAR 04/26/2020 [id number]-4 0 / [id number] / Sut Steel 6 M654g - [id number] Implanted:Qty : 4 on 09/22/2016 by Dejon Carlos MD [place] [facility] [place] N/A: Sternum JNJ : [employer] 06/14/2021 [id number] / / [id number] documented as of this encounter Advance Directives Documents on File Type Date Recorded 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
--- OUTSIDE RECORDS SUMMARY | 2024-04-02 09:23 | External Medical Summary | Summary of Care ---
Author Name Unknown Organization [facility] Address [address] [facility] [place] [address] Phone [phone] Care Team Providers Care Store Stock Help Name Role Phone Magy Segal MD Primary Care Provider + Reason for Visit * Reason Comments eRx-Medication Refill Encounter Details Date Type Department Care Team (Late st Contact Info) Description 03/25/2024 Refill Cardiology, Health system [address] [place] [address] Arnav Rodriguez PA-C [address] [place] [address] Coronary artery disease involving [place] coronary artery of habematolel heart without angina pectoris; S/P MVR (mitral valve replacement) Allergies Active Allergy Reactions Criticality Noted Date Comments Haseeb Inhibitors Cough 04/04/2010 documented as of this encounter (statuses as of 03/26/2024) Medications Medication Sig Dispensed Refills Start Date End Date Status aspirin 81 MG chewable tablet Take 1 Tab by mouth daily. 30 Tab 3 09/28/2016 Active OneTouch Delica Lancets 33GIndications:Ty pe 2 diabetes mellitus with hemoglobin A1c goal of less than 7.5% ([facility]) Test blood sugar once daily 100 Each 3 06/15/2020 Active OneTouch Verio In Vitro Strip (Glucose Blood)Indications :Type 2 diabetes mellitus with hemoglobin A1c goal of less than 7.5% ([facility]) Test blood sugar once daily 100 Strip 3 07/21/2020 Active Famotidine 20 MG Oral Tablet (Pepcid) [...] A MEAL 30 Tablet 5 01/30/2024 Active Warfarin Sodium 5 MG Oral Tablet (Jantoven)Indicat ions:Coronary artery disease involving [place] coronary artery of habematolel heart without angina pectoris,S/P MVR (mitral valve replacement) TAKE 1 TABLET BY MOUTH ONCE DAILY OR DIRECTED BY [facility] 90 Tablet 3 03/26/2024 Active Warfarin Sodium 5 MG Oral Tablet (Jantoven)Indicat ions:Coronary artery disease involving [place] coronary artery of habematolel heart without angina pectoris,S/P MVR (mitral valve replacement) TAKE ONE TABLET BY MOUTH DAILY or as directed by coag clinic 90 Tablet 3 03/30/2023 03/26/20 24 Discontinued documented as of this encounter (statuses as of 03/26/2024) Active Problems Problem Noted Date Diagnosed Date [...] (NSTEMI) 07/20/2017 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 [facility] current use of 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 therapy 0 10/03/2016 Overview: ICD-10 update of inactive term S/P MVR (mitral valve replacement) 09/28/2016 Overview: Bioprosthetic 29mm epic valve Coronary artery disease invo lving [place]emat[place] coronary artery of habematolel heart without angina pectoris 09/12/2016 Overview: 80% [...] as of this encounter (statuses as of 03/26/2024) Resolved Problems Problem Noted Date Diagnosed Date [...] as of this encounter (statuses as of 03/26/2024) Immunizations Name Administration Dates Next Due COVID-19 mRNA, LNP-s, No Pre serve, 2-Dose Series ([employer]) 08/27/2021,09/22/2020,09/01/2020 Hepatitis B, 20+ yrs 09/12/2016 Pneumococcal [...] Telephone Encounter - Arnav Rodriguez PA-C - 03/26/2024 10:58 AM EDT Signed Prescriptions: Disp Refills Warfarin Sodium 5 MG Oral Tablet (Jantoven)90 Tab*3 Sig: TAKE 1 TABLET BY MOUTH ONCE DAILY OR DIRECTED BY [facility] Authorizing Provider: ARNAV RODRIGUEZ * Telephone Encounter - Do Cotto CMA - 03/26/2024 10:23 AM EDTPending Prescriptions: Disp Refills Warfarin Sodium 5 MG Oral Tablet (Jantoven)90 Tab*3 Sig: TAKE 1 TABLET BY MOUTH ONCE DAILY OR DIRECTED BY [facility] * Telephone Encounter - Do Cotto CMA - 03/26/2024 10:22 AM EDT Did you pend patient's preferred pharmacy and medication before forwarding?yes Pharmacy: [id number] Pending Prescriptions: Disp Refills Warfarin Sodium 5 MG Oral Tablet (Jantove*90 Tab*3 Sig: TAKE 1 TABLET BY MOUTH ONCE DAILY OR DIRECTED BY [facility] Last Visit: 08/10/2023 (in office), Visit date not found (telemedicine) Next Visit: Visit date not found If no future appointments scheduled, and last appointment is greater than a year ago, please schedule patient for a follow-up appointment Last date the medication was ordered: 03-30-2023 Is this request for a controlled substance?No [...] Care Team (Late st Contact Info) Description 03/27/2024 7:00 AM EDT Laboratory Lab Mobile Phlebotomy [facility] [address] [place] [address] [facility], Gml Mobile Home Draw [address] [place] [address] 03/28/2024 6:00 AM EDT Anticoagulation Centralized Clinical Pharmacy Services, Bogdan Coles [address] [place] [address] [place] [address] [facility], [address] [place] [address] 09/30/2024 10:00 AM EDT Office Visit General Internal Medicine State [place] [address] [place] [address] Magy Segal MD [address] [place] [address] [address] Scheduled Procedures Name Priority Associated Diagnoses Date/Ti [...] 01/30/2019, Additional history exists HbA1c 11/19/2023 05/21/2023, 04/, 08/29/2022, Additional history exists GFR 01/30/2024 2023, 05/17, 05/29/2023, Additional history exists Diabetic Foot Exam 02/23/2024 02/22/2023, 0 02/16/2022, 01/04/2021, Additional history exists COVID-19 Vaccine ( season) 2024 08/27/2021, 09/22/2020, 09/01/2020 Influenza Vaccine (FLU shot) (#1) 2024 08/29/2022, 07/25/2021, 05/06/2020, Additional history exists Albumin/Creatinine Ratio 05/25/2024 023, 08/20/2020, 02/10/2020, Additional history exists Depression Screening 08/02/2024 08/02/2023 CKD HGB USE SMARTSET 42501 08/07/202408/07, 2023, 06/12/2023, Additional history exists CKD PHOS USE SMARTSET 30477 08/07/202407/17, 2023, 05/21/2023, Additional history exists DTap/Tdap [...] encounter Medical Devices Implanted Type Area Director Behavioral Health Device Identifier Shelf Expiration Date Model / Serial / Lot Marker Coronary [facility]-Sd - [id number] Implanted:Qty : 2 [place] 09/22/2016 [place] [facility] [place] Aorta [employer]ESSEE BI[employer] 06/14/2019 [facility] / / [id number] Atriclip 35mm [id number] - [id number] Implanted:Qty : 1 on 09/22/2016 [place] Dejon [place] [facility] [place]: Heart ATRICURE 06/15/2018 [id number] / / [id number] Valve Heart Mitral Epic 27mm - [id number] - [id number] Implanted:Qty : 1 on 09/22/2016 [place] Dejon [place] [facility] [place]/A: Heart ST TAMIKO : CARDIOVASCULAR 04/26/2020 [id number]-6 0 / [id number] / Sut Steel 6 M654g - [id number] Implanted:Qty : 4 on 09/22/2016 by Dejon Carlos [place] [facility] [place]: Sternum JNJ : [employer] 06/14/2021 [id number] / / [id number] documented as of this encounter Visit Diagnoses Diagnosis Coronary artery disease involving habematolel coronary artery of habematolel heart without angina pectoris S/P MVR (mitral valve replacement) Heart valve replaced by other means documented in this encounter Advance Directives Documents on File Type Date Recorded 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
--- OUTSIDE RECORDS SUMMARY | 2024-04-02 09:23 | External Medical Summary | Summary of Care ---
Author Name Unknown Organization [facility] Address [address] [place] [place] [place] [address] Phone [phone] Care Team Providers Care Embossing Press Operator Apprentice Name Role Phone Magy Segal MD Primary Care Provider + Reason for Visit * Reason Comments Return Visit Return, no new geoff rns. Pt wants any new med orders sent [facility] Encounter Details Date Type Department Care Team (Latest Contact Info) Description 03/13/2024 10:00 AM EDT Office Visit General Internal Medicine [address] [place] [address] [place] [phone] Magy Segal MD 200 [facility] [place] [address] Type 2 diabetes mellitus with hemoglobin A1c goal of less than 7.5% ([facility])*; Dyslipidemia, goal LDL below 70; Diabetes mellitus due to underlying condition with stage 3a chronic kidney disease, without long-term current use of insulin ([facility]); PSVT (paroxysmal supraventricular tachycardia) ([facility]); terminal gauger current use of 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 therapy; S/P CABG x 2; S/P MVR (mitral valve replacement); History of non-ST elevation myocardial infarction (NSTEMI); Partial idiopathic epilepsy with seizures of localized onset, not intractable, with status epilepticus ([facility]); Iron deficiency anemia, unspecified iron deficiency anemia type; Need for hepatitis B vaccination Allergies Active Allergy Reactions Criticality Noted Date Comments Haseeb Inhibitors Cough 04/04/2010 documented as of this encounter (statuses as of 03/13/2024) Medications Medication Sig Dispensed Refills Start Date End Date Status aspirin 81 MG chewable tablet Take 1 Tab by mouth daily. 30 Tab 3 09/28/2016 Active OneTouch [place] Lancets 33GIndications:Type 2 diabetes mellitus with hemoglobin A1c goal of less than 7.5% ([facility]) Test blood sugar once daily 100 Each 3 06/15/2020 Active OneTouch Verio In Vitro Strip (Glucose Blood)Indications:T ype 2 diabetes mellitus with hemoglobin A1c goal of less than 7.5% ([facility]) Test blood sugar once daily 100 Strip 3 07/21/2020 Active Warfarin Sodium 5 MG Oral Tablet (Jantoven)Indicatio ns:Coronary artery disease involving absentee-shawnee coronary artery of absentee-shawnee heart without angina pectoris,S/P MVR (mitral valve [...] 04/03/2023 Active Loratadine 10 MG Oral Tablet (Claritin)Indicatio [...] A MEAL 30 Tablet 5 01/30/2024 Active documented as of this encounter (statuses as of 03/13/2024) Active Problems Problem Noted Date Diagnosed Date [...] (NSTEMI) 07/20/2017 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 alf current use of 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 therapy 0 10/03/2016 Overview: ICD-10 update of inactive term S/P MVR (mitral valve replacement) 09/28/2016 Overview: Bioprosthetic 29mm epic valve Coronary artery disease invo lving absentee-shawnee coronary artery of absentee-shawnee heart without angina pectoris 09/12/2016 Overview: 80% [...] as of this encounter (statuses as of 03/13/2024) Resolved Problems Problem Noted Date Diagnosed Date [...] as of this encounter (statuses as of 03/13/2024) Immunizations Name Administration Dates Next Due COVID-19 [...] Date Smoking Tobacco: Never Smokeless Tobacco: Never Tobacco Cessation:Counseling Given: Not Answered Alcohol Use Standard Drinks/Week Comments No 0 [...] Sign Reading Time Taken Comments Blood Pressure 116/78 03/13/2024 10:05 AM EDT Pulse 67 03/13/2024 10:05 AM EDT Temperature 35.8 C (96.4 F) 03/13/2024 10:05 AM E DT Respiratory Rate - - Oxygen Saturation 98% 03/13/2024 10:05 AM EDT Inhaled Oxygen Concentration - - Weight 59.6 kg (131 lb 4.8 oz) 03/13/2024 10:05 AM EDT Height 154.9 cm (5' 1") 03/13/2024 10:05 AM EDT Body Mass Index 24.81 03/13/2024 10:05 AM EDT documented in this encounter Functional Status Functional [...] as of this encounter Progress Notes * Magy Segal MD - 03/13/2024 10:30 AM EDT HPI: Ya Dejesus is a 83 year old female with hx of CAD, status post CABG twice, hypertension, type 2 diabetes mellitus, osteoporosis, hyperlipidemia, CKD, history of paroxysmal supraventricular tachycardia, status post mitral valve replacement, on anticoagulation, history of drug-eluting stent, history of non ST elevation NC, history of bioprosthetic mitral valve replacement, history of asymmetric septal hypertrophy, history of iron-deficiency anemia, follows with Cardiology, who presents with: Chief Complaint Patient presents with Return Visit Return, no new concerns. Pt wants any new med orders sent [facility] Patient is here for the recheck. Chart [...] - [facility] 9.3 (H) 01/24/2019 11:11 AM Patient Active Problem List Diagnosis Family history of colon cancer hx of hypercalcemia on supplemnts, to be off calcium supp Dyslipidemia, goal LDL below 70 ADVANCE DIRECTIVE INFORMATION Asymmetric septal hypertrophy (HCC) Kidney disease, chronic, stage III (GFR 30-59 ml/min) ([facility]) Type 2 diabetes mellitus with hemoglobin A1c goal of less than 7.5% ([facility]) Essential hypertension with goal blood pressure less than 140/90 Coronary artery disease involving absentee-shawnee coronary artery of absentee-shawnee heart without angina pectoris Pulmonary hypertension ([facility]) S/P MVR (mitral valve replacement) alf current use of 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 therapy S/P CABG x 2 History of non-ST elevation myocardial infarction (NSTEMI) Hx of actinic keratosis HTN, goal below 140/90 High risk for fracture due to osteoporosis by DEXA scan Aortic atherosclerosis ([facility]) Risk and functional assessment Status post insertion of drug eluting coronary artery stent Partial idiopathic epilepsy with seizures of localized onset, not intractable, with status epilepticus ([facility]) Bioprosthetic mitral valve replacement, current hospitalization Type 2 diabetes mellitus with stage 3a chronic kidney disease ([facility]) Diabetes mellitus due to underlying condition with stage 3a chronic kidney disease ([facility]) PSVT (paroxysmal supraventricular tachycardia) ([facility]) Chronic kidney disease, stage 3a ([facility]) Diabetes mellitus due to underlying condition with stage 3 chronic kidney disease, without long-term current use of insulin ([facility]) Bronchitis, complicated Iron deficiency anemia Current Outpatient Medications Medication Sig Dispense Refill aspirin 81 MG chewable tablet Take 1 Tab by mouth daily. 30 Tab 3 OneTouch Delica Lancets 33G Test blood sugar once daily 100 Each 3 OneTouch Verio In Vitro Strip (Glucose Blood) Test blood sugar once daily 100 Strip 3 Warfarin Sodium 5 MG Oral Tablet (Jantoven) TAKE ONE TABLET BY MOUTH DAILY or as directed by coag clinic (Patient taking differently: TAKE ONE TABLET BY MOUTH DAILY or as directed by coag clinic) 90 Tablet 3 Famotidine 20 MG Oral Tablet (Pepcid) TAKE ONE TABLET BY MOUTH IN THE MORNING AND ONE BEFORE BEDTIME 180 Tablet 3 Rosuvastatin Calcium 20 MG Oral Tablet (Crestor) TAKE 1 TABLET BY MOUTH ONCE DAILY 90 Tablet 3 Losartan Potassium 50 MG Oral Tablet (Cozaar) TAKE 1 & 1/2 TABLETS BY MOUTH EVERY DAY 135 Tablet 3 Metoprolol Tartrate 25 MG Oral Tablet (Lopressor) TAKE 1 TABLET BY MOUTH TWICE DAILY 180 Tablet 1 glipiZIDE 5 MG Oral Tablet (Glucotrol) TAKE 1 TABLET BY MOUTH IN THE MORNING 30 MINUTES BEFORE A MEAL 30 Tablet 5 Loratadine 10 MG Oral Tablet (Claritin) Take 1 Tablet by mouth in the morning. (Patient not taking:Reported on 08/02/2023) Phospha 250 Neutral 155-852-130 MG Oral Tablet Take 2 Tablets by mouth in the morning and 2 Tabletsat noon and 2 Tablets in the evening and 2 Tablets before bedtime. (Patient not taking: Reported on08/30/2023) Fluticasone Propionate 50 MCG/ACT Nasal Suspension (Flonase) Administer 2 Sprays into each nostril at bedtime. 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 Tobacco Use Smoking status: Never Smokeless tobacco: Never Vaping Use Vaping status: Never Used Substance and Sexual Activity Alcohol use: No Drug use: No Sexual activity: Never Partners: Male Comment: esoph cancer 01/01/09 Social History Narrative PE 07/02/02 LABS: 12/14 glu 86 chol 186 283 60 69 k 4.2 05/16 chol 222 480 53 11/14 chol 189 189 49 102 09/15 chol 206 178 53 117 Ca 10.8 glu 90 CXR: EKG: PAP: MAMMO: HEMMO: DEXA: Social Determinants of Health Financial Resource Strain: Low Risk (08/02/2023) Financial Resource Strain Do you have any trouble paying for your medications, or do you think you might in the future? (Adult - for ages 18 years and over): No Food Insecurity: No Food Insecurity (08/02/2023) Food Insecurity Do you need food for this week? (Adult - for ages 18 years and over): No Transportation Needs: No Transportation Needs (08/02/2023) Transportation Needs Do you have trouble getting a ride to medical visits or work? (Adult - for ages 18 years and over):Never True Social Connections: Socially Integrated (08/02/2023) Social Connections How often do you feel lonely or isolated from those around you? (Adult - for ages 18 years and over): Never Housing Stability: Low Risk (08/02/2023) Housing Stability Do you currently live in a jail or have no steady place to sleep at night? (Adult - for ages 18 years and over): No Do you think you are at risk of becoming homeless? (Adult - for ages 18 years and over): No Family History Problem Relation Name Age of Onset Heart Disorder Father 42 NC Heart Disorder Brother 50 NC Colon cancer Brother Breast Cancer Sister 72 Breast Cancer Niece 40 bilateral mastectomy All system negative except as per hpi. OBJECTIVE: BP 116/78 | Pulse 67 | Temp 35.8 C (96.4 F) (Tympanic) | Ht 1.549 m (5' 1") | Wt 59.6 kg (131 lb 4.8 oz) | LMP 10/15/1975 | SpO2 98% | BMI 24.81 kg/m | BSA 1.6 m PHYSICAL EXAM: [...] hemoglobin A1c goal of less than 7.5% ([facility]) (Primary) - HEMOGLOBIN A1C; Future; Expected date: 03/13/2024 - COMPREHENSIVE METABOLIC PANEL; Future; Expected date: 03/13/2024 Dyslipidemia, goal LDL below 70 - LIPID PANEL WITH DIRECT LDL IF TG IS HIGH; Future; Expected date: 03/13/2024 Diabetes mellitus due to underlying condition with stage 3a chronic kidney disease, without long-term current use of insulin (HCC) PSVT (paroxysmal supraventricular tachycardia) (HCC) alf current use of 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 therapy S/P CABG x 2 S/P MVR (mitral valve replacement) History of non-ST elevation myocardial infarction (NSTEMI) Partial idiopathic epilepsy with seizures of localized onset, not intractable, with status epilepticus (HCC) Iron deficiency anemia, unspecified iron deficiency anemia type - CBC WITH WBC DIFFERENTIAL; Future; Expected date: 03/13/2024 Need for hepatitis B vaccination - HEPATITIS B SURFACE ANTIBODY; Future; Expected date: 03/13/2024 Follow Up: Return in about 6 months (around 09/12/2024) for Return with Physician, Fasting Labs Soon. | For: Return with Physician, Fasting Labs Soon Magy Segal MD documented in this encounter Nursing Notes * Ho Morris CMA - 03/13/2024 10:05 AM EDT The patient has been properly identified by confirmation of name and date of . Chief Complaint Patient presents with Return Visit Return, no new concerns. Pt wants any new med orders sent [facility] documented in this encounter Plan of Treatment Upcoming Encounters Date Type Department Care Team (Late st Contact Info) Description 03/27/2024 7:00 AM EDT Laboratory Lab Mobile Phlebotomy [facility] [address] [place] [id number] [facility] Draw [address] [place] [address] [id number] 03/28/2024 6:00 AM EDT Anticoagulation Centralized Clinical Pharmacy Services, Bogdan Coles [address] [place] [address] [place] [address] [place] [address] 09/30/2024 10:00 AM EDT [facility] [address] [place] [address] Magy Segal MD 200 [facility] [place], [place] [address] Scheduled Orders Name Type Priority Associated Diagnoses Orde r Schedule HEMOGLOBIN A1C Lab Routine Type 2 diabetes mellitus with hemoglobin A1c goal of less than 7.5% (HCC) Expected: 03/13/2024, Expires: 03/13/2025 COMPREHENSIVE METABOLIC PANEL Lab Routine Type 2 diabetes mellitus with hemoglobin A1c goal of less than 7.5% (HCC) Expected: 03/13/2024, Expires: 03/13/2025 HEPATITIS B SURFACE ANTIBODY Lab Routine Need for hepatitis B vaccination Expected: 03/13/2024, Expires: 03/13/2025 CBC WITH WBC DIFFERENTIAL Lab Routine Iron deficiency anemia, unspecified iron deficiency anemia type Expected: 03/13/2024, Expires: 03/13/2025 LIPID PANEL WITH DIRECT LDL IF TG IS HIGH Lab Routine Dyslipidemia, goal LDL below 70 Expected: 03/13/2024, Expires: 03/13/2025 Scheduled Procedures Name Priority Associated Diagnoses Date/Ti [...] Screening 08/02/2024 08/02/2023 CKD HGB USE SMARTSET 51037 08/07/202408/07, 2023, 06/12/2023, Additional history exists CKD PHOS USE SMARTSET 34186 08/07/202407/17, 2023, 05/21/2023, Additional history exists DTap/Tdap [...] this encounter Medical Devices Implanted Type Area Upholstery Covers Inspector Device Identifier Shelf Expiration Date Model / Serial / Lot Marker Coronary [facility]-S[facility] - [id number] Implanted:Qty : 2 on 09/22/2016 [place] Dejon [place] [facility] [place] Aorta [employer] 06/14/2019 AM-SD / / [id number] Atriclip 35mm [id number] - [id number] Implanted:Qty : 1 on 09/22/2016 [place] Dejon Carlos [place] [facility] [place]: Heart ATRICURE 06/15/2018 [id number] / / [id number] Valve Heart Mitral Epic 27mm - [id number] - [id number] Implanted:Qty : 1 on 09/22/2016 by Dejon Carlos [place] [facility] [place]/A: Heart ST TAMIKO : CARDIOVASCULAR 04/26/2020 [id number] / [id number] / Sut Steel 6 M654g - [id number] Implanted:Qty : 4 on 09/22/2016 by Dejon Carlos [place] [facility] [place]: Sternum JNJ : [employer] 06/14/2021 [id number] / / [id number] documented as of this encounter Visit Diagnoses Diagnosis Type 2 diabetes mellitus with hemoglobin A1c goal of less than 7.5% (HCC)- Primary Dyslipidemia, goal LDL below 70 Other and unspecified hyperlipidemia Diabetes mellitus due to underlying condition with stage 3a chronic kidney disease, without long-term current use of insulin (HCC) PSVT (paroxysmal supraventricular tachycardia) (HCC) Paroxysmal supraventricular tachycardia alf current use of 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 therapy S/P CABG x 2 Postsurgical aortocoronary bypass status S/P MVR (mitral valve replacement) Heart valve replaced by other means History of non-ST elevation myocardial infarction (NSTEMI) Old myocardial infarction Partial idiopathic epilepsy with seizures of localized onset, not intractable, with status epilepticus ([facility]) Iron deficiency anemia, unspecified iron deficiency anemia type Need for hepatitis B vaccination Need for prophylactic vaccination and inoculation against viral hepatitis documented in this encounter Advance Directives Documents on File Type Date Recorded Patient Recycling Attendant Expl anation Advance Directives and Living Will 12/28/2009 ADVANCE DIRECTIVE / LIVING WILL POWER OF COMMERCIAL MARKETING SPECIALIST * Full Code (Latest Code Status [...] Relationship Healthcare Agent Relationshi p Communication [place] Adult Child First Alternate Health Care Agent (per Health Care Power of Shaft Repairer document) Care Teams Embossing Press Operator Apprentice Relationship Specialty Start Date End Date Magy Segal MD [address] [place] [address], [place] [address] PCP - General Internal Medicine 08/08/19 documented as of this encounter
--- OUTSIDE RECORDS SUMMARY | 2024-04-02 09:23 | External Medical Summary | Summary of Care ---
Author Name Unknown Organization [facility] Address [address] [facility] [place] [address] Phone [phone] Care Team Providers Care System Operation Superintendent Name Role Phone Magy Segal MD Primary Care Provider + Reason for Visit * Reason Onset Date Comments Order Request 02/15/2024 Encounter Details Date Type Department Care Team (Late st Contact Info) Description 02/15/2024 Telephone Centralized Clinical Pharmacy Services, Bogdan Coles [address] [place] [address] [place] [address] Nahomi Rose, [facility] [address] [place] [address] Order Request Allergies Active Allergy Reactions Criticality Noted Date Comments Haseeb Inhibitors Cough 04/04/2010 documented as of this encounter (statuses as of 02/15/2024) Medications Medication Sig Dispensed Refills Start Date End Date Status aspirin 81 MG chewable tablet Take 1 Tab by mouth daily. 30 Tab 3 09/28/2016 Active OneTouch Delica Lancets 33GIndications:Type 2 diabetes mellitus with hemoglobin A1c goal of less than 7.5% ([facility]) Test blood sugar once daily 100 Each 3 06/15/2020 Active OneTouch Verio In Vitro Strip (Glucose Blood)Indications:T ype 2 diabetes mellitus with hemoglobin A1c goal of less than 7.5% ([facility]) Test blood sugar once daily 100 Strip 3 07/21/2020 Active Warfarin Sodium 5 MG Oral Tablet (Jantoven)Indicatio ns:Coronary artery disease involving hopland coronary artery of hopland heart without angina pectoris,S/P MVR (mitral valve [...] as of this encounter (statuses as of 02/15/2024) Active Problems Problem Noted Date Diagnosed Date [...] (NSTEMI) 07/20/2017 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 current use of 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 therapy 0 10/03/2016 Overview: ICD-10 update of inactive term S/P MVR (mitral valve replacement) 09/28/2016 Overview: Bioprosthetic 29mm epic valve Coronary artery disease invo lving hopland coronary artery of hopland heart without angina pectoris 09/12/2016 Overview: 80% [...] as of this encounter (statuses as of 02/15/2024) Resolved Problems Problem Noted Date Diagnosed Date [...] as of this encounter (statuses as of 02/15/2024) Immunizations Name Administration Dates Next Due COVID-19 mRNA, LNP-s, No Pre serve, 2-Dose Series (Haofangtong) 08/27/2021,09/22/2020,09/01/2020 Hepatitis B, 20+ yrs 09/12/2016 Pneumococcal [...] encounter Miscellaneous Notes * Telephone Encounter - Nahomi Rose RPh - 02/15/2024 12:35 PM EDT New standing orders for PT/INR placed today. Thank you, Nahomi Rose PharmD Clinical Pharmacist [facility]ized [facility] ([facility]) 02/15/2024 12:35 PM documented in this encounter Plan of Treatment Upcoming Encounters Date Type Department Care Team (Late st Contact Info) Description 03/03/2024 7:00 AM EDT Laboratory Lab Mobile Phlebotomy [facility] [address] [place] [address] [address] [facility], [facility] Mobile Home Draw [address] [place] [address] 03/04/2024 6:00 AM EDT Anticoagulation Centralized Clinical Pharmacy Services, Bogdan Coles [address] [place] [address] [place] [address] [facility], [address] [place] [address] 03/13/2024 10:00 AM EDT Office Visit General Internal Medicine [place] [address] [facility] [place] [address] Magy Segal MD 200 [facility] [place] [address] Scheduled Orders Name Type Priority Associated Diagnoses Orde r Schedule PT INR Lab Routine S/P MVR (mitral valve replacement) 26 Occurrences starting 02/15/2024 until 02/14/2025 Scheduled Procedures Name Priority Associated Diagnoses Date/Ti [...] Screening 08/02/2024 08/02/2023 CKD HGB USE SMARTSET [id number] 08/07/202408/07, 2023, 06/12/2023, Additional history exists CKD PHOS USE SMARTSET 30734 08/07/202407/17, 2023, 05/21/2023, Additional history exists DTaP,Tdap,and [...] this encounter Medical Devices Implanted Type Area Operational Review Sergeant Device Identifier Shelf Expiration Date Model / Serial / Lot Marker Coronary Am-Sd - [id number] Implanted:Qty : 2 on 09/22/2016 by Dejon Carlos [place] [facility] [place]: Aorta [employer] 06/14/2019 AM-SD / / [id number] Atriclip 35mm [id number] - [id number] Implanted:Qty : 1 on 09/22/2016 by Dejon Carlos MD [place] [facility] [place]: Heart ATRICURE 06/15/2018 [id number] / / [id number] Valve Heart Mitral Epic 27mm - [id number] - [id number] Implanted:Qty : 1 on 09/22/2016 by Dejon Carlos MD [place] [facility] [place] N/A: Heart ST TAMIKO : CARDIOVASCULAR 04/26/2020 [id number] / [id number] / Sut Steel 6 M654g - [id number] Implanted:Qty : 4 on 09/22/2016 by Dejon Carlos MD [place] [facility] [place]A: Sternum JNJ : [employer] 06/14/2021 [id number] / / [id number] documented as of this encounter Visit Diagnoses Diagnosis S/P MVR (mitral valve replacement)- Primary Heart valve replaced by other means documented in this encounter Advance Directives Documents on File Type Date Recorded Patient Extern Expl anation Advance Directives and Living Will 12/28/2009 ADVANCE DIRECTIVE / LIVING WILL POWER OF ENTERPRISE APPLICATION DEVELOPER * Full Code (Latest Code Status on [...] Care Agent (per Health Care Power of Educational Fundraising Director document) Care Teams System Operation Superintendent Relationship Specialty Start Date End Date Magy Segal MD 200 [place] [address] PCP - General Internal Medicine 08/08/19 documented as of this encounter
--- OUTSIDE RECORDS SUMMARY | 2024-04-02 09:23 | External Medical Summary | Summary of Care ---
Author Name Unknown Organization [facility] Address [address] [facility] [place] [address] Phone [phone] Care Team Providers Care Bicycle Taxi Driver Name Role Phone Magy Segal MD Primary Care Provider + Encounter Details Date Type Department Care Team (Late st Contact Info) Description 03/15/2024 Orders Only PATIENT PORTAL DO NOT DELETE THIS DEPT USED BY [place] [facility] [id number] Allergies Active Allergy Reactions Criticality Noted Date Comments Haseeb Inhibitors Cough 04/04/2010 documented as of this encounter (statuses as of 03/15/2024) Medications Medication Sig Dispensed Refills Start Date End Date Status aspirin 81 MG chewable tablet Take 1 Tab by mouth daily. 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 0 10/03/2016 Overview: ICD-10 update of inactive term S/P MVR (mitral valve replacement) 09/28/2016 Overview: Bioprosthetic 29mm epic valve Coronary artery disease invo lving [place] coronary artery of [place] heart without angina pectoris 09/12/2016 Overview: 80% [...] as of this encounter (statuses as of 03/15/2024) Resolved Problems Problem Noted Date Diagnosed Date [...] as of this encounter (statuses as of 03/15/2024) Immunizations Name Administration Dates Next Due COVID-19 mRNA, LNP-s, No Pre serve, 2-Dose Series ([employer]) 08/27/2021,09/22/2020,09/01/2020 Hepatitis B, 20+ yrs 09/12/2016 Pneumococcal [...] Mobile Phlebotomy [facility] [address] [place] [address] [facility], Gml Mobile Home Draw [address] [place] [address] 03/28/2024 6:00 AM EDT Anticoagulation [facility], Bogdan Coles [address] [place] [address] [place] [address] [place] [address] 09/30/2024 10:00 AM EDT Office Visit General Internal Medicine State [place] [address] [place] [address] [address] Magy Segal MD [address] [place] [address] [address] Scheduled Procedures Name Priority Associated Diagnoses Date/Ti [...] , 01/30/2019, Additional history exists COVID-19 Vaccine (2022- season) 2023 08/27/2021, 09/22/2020, 09/01/2020 HbA1c 11/19/2023 05/21/2023, 10/14, 08/29/2022, Additional history exists GFR 01/30/2024 2023, 05/17, 05/29/2023, Additional history exists Diabetic Foot Exam 02/23/2024 02/22/2023, 0 02/16/2022, 01/04/2021, Additional history exists Influenza Vaccine (FLU shot) (#1) 2024 08/29/2022, 07/25/2021, 05/06/2020, Additional history exists Albumin/Creatinine Ratio 05/25/2024 023, 08/20/2020, 02/10/2020, Additional history exists Depression Screening 08/02/2024 08/02/2023 CKD HGB USE SMARTSET 60439 08/07/202408/07, 2023, 06/12/2023, Additional history exists CKD PHOS USE SMARTSET 38754 08/07/202407/17, 2023, 05/21/2023, Additional history exists DTap/Tdap [...] this encounter Medical Devices Implanted Type Area Event Mgr Device Identifier Shelf Expiration Date Model / Serial / Lot Marker Coronary Am-Sd - [id number] Implanted:Qty : 2 on 09/22/2016 by Dejon Carlos MD at OR [facility] [place] N/A: Aorta [employer]ESSEE [employer] 06/14/2019 AM-SD / / [id number] Atriclip 35mm [id number] - [id number] Implanted:Qty : 1 on 09/22/2016 by Dejon Carlos MD at OR [facility] [place] N/A: Heart ATRICURE 06/15/2018 [id number] / / [id number] Valve Heart Mitral Epic 27mm - [id number] - [id number] Implanted:Qty : 1 on 09/22/2016 by Dejon Carlos MD at OR [facility] [place] N/A: Heart ST TAMIKO : CARDIOVASCULAR 04/26/2020 [id number] 0 / [id number] / Sut Steel 6 M654g - [id number] Implanted:Qty : 4 on 09/22/2016 by Dejon Carlos MD at OR [facility] [place] N/A: Sternum JNJ : [employer] 06/14/2021 [id number] / / [id number] documented as of this encounter Advance Directives Documents on File Type Date Recorded 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
--- OUTSIDE RECORDS SUMMARY | 2024-04-02 09:23 | External Medical Summary | Summary of Care ---
Author Name Unknown Organization [facility] Address [address] [facility] [place] [address] Phone [phone] Care Team Providers Care Fish Warden Name Role Phone Magy Segal MD Primary Care Provider + Reason for Visit * Reason Comments Dosage Adjustment Via Phone (anticoag Cl inic) Encounter Details Date Type Department Care Team (Late st Contact Info) Description 02/06/2024 6:00 AM EDT Anticoagulation Centralized Clinical Pharmacy Services, Bogdan [address] [place] [address] [place] [address] S/P MVR (mitral valve replacement)*; Bioprosthetic mitral valve replacement, current hospitalization Allergies Active Allergy Reactions Criticality Noted Date Comments Haseeb Inhibitors Cough 04/04/2010 documented as of this encounter (statuses as of 02/06/2024) Medications Medication Sig Dispensed Refills Start Date End Date Status aspirin 81 MG chewable tablet Take 1 Tab by mouth daily. 30 Tab 3 09/28/2016 Active OneTouch Delica Lancets 33GIndications:Type 2 diabetes mellitus with hemoglobin A1c goal of less than 7.5% ([facility]) Test blood sugar once daily 100 Each 3 06/15/2020 Active OneTouch Verio In Vitro Strip (Glucose Blood)Indications:T ype 2 diabetes mellitus with hemoglobin A1c goal of less than 7.5% (HCC) Test blood sugar once daily 100 Strip 3 07/21/2020 Active Warfarin Sodium 5 MG Oral Tablet (Jantoven)Indicatio ns:Coronary artery disease involving [place] coronary artery of [place] heart without angina pectoris,S/P MVR (mitral valve [...] as of this encounter (statuses as of 02/06/2024) Active Problems Problem Noted Date Diagnosed Date [...] (NSTEMI) 07/20/2017 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 0 10/03/2016 Overview: ICD-10 update of inactive term S/P MVR (mitral valve replacement) 09/28/2016 Overview: Bioprosthetic 29mm epic valve Coronary artery disease invo lving [place] coronary artery of [place] heart without angina pectoris 09/12/2016 Overview: 80% [...] as of this encounter (statuses as of 02/06/2024) Resolved Problems Problem Noted Date Diagnosed Date [...] as of this encounter (statuses as of 02/06/2024) Immunizations Name Administration Dates Next Due COVID-19 mRNA, LNP-s, No Pre serve, 2-Dose Series ([employer]) 08/27/2021,09/22/2020,09/01/2020 Hepatitis B, 20+ yrs 09/12/2016 Pneumococcal [...] as of this encounter Progress Notes * Shayna Reaves operations dispatcher - 02/06/2024 7:36 AM EDT Pt no showed GML appt on 02/04. Chart routed to mobile lab asking that pt be rescheduled to 02/10. F/U call scheduled for 02/11 Thank you, Shayna Reaves Construction And Maintenance Inspector [facility] ([facility]) [phone] 02/06/2024,7:37 AM documented in this encounter Plan of Treatment Upcoming Encounters Date Type Department Care Team (Late st Contact Info) Description 02/12/2024 6:00 AM EDT Anticoagulation Centralized Clinical Pharmacy Services, Bogdan Coles [address] [place] [address] [place] [address] [place] [address] 03/13/2024 10:00 AM EDT Office Visit General Internal Medicine State [place] [address] [facility] [place] [address] aMgy Segal MD [address] [facility] [place] [address] Scheduled Procedures Name Priority Associated Diagnoses Date/Ti [...] Screening 08/02/2024 08/02/2023 CKD HGB USE SMARTSET 98631 08/07/202408/07, 2023, 06/12/2023, Additional history exists CKD PHOS USE SMARTSET 71947 08/07/202407/17, 2023, 05/21/2023, Additional history exists DTaP,Tdap,and [...] this encounter Medical Devices Implanted Type Area Cardiac Exercise Specialist Device Identifier Shelf Expiration Date Model / Serial / Lot Marker Coronary Am-Sd - [id number] Implanted:Qty : 2 on 09/22/2016 by Dejon Carlos MD [place] [facility] [place]A: Aorta [employer] 06/14/2019 AM-SD / / [id number] Atriclip 35mm [id number] - [id number] Implanted:Qty : 1 on 09/22/2016 by Dejon Carlos MD at [place] [facility] [place] N/A: Heart ATRICURE 06/15/2018 [id number] / / [id number] Valve Heart Mitral Epic 27mm - [id number] - [id number] Implanted:Qty : 1 on 09/22/2016 by Dejon Carlos MD at [place] [facility] [place] N/A: Heart ST TAMIKO : CARDIOVASCULAR 04/26/2020 [id number]-1 0 / [id number] / Sut Steel 6 M654g - [id number] Implanted:Qty : 4 on 09/22/2016 by Dejon Carlos MD at [place] [facility] [place] N/A: Sternum JNJ : [employer] 06/14/2021 M654G / / [id number] documented as of this encounter Visit Diagnoses Diagnosis S/P MVR (mitral valve replacement)- Primary Heart valve replaced by other means Bioprosthetic mitral valve replacement, current hospitalization Heart valve replaced by other means documented in this encounter Advance Directives Documents on File Type Date Recorded Patient Rn Gyn Expl anation Advance Directives and Living Will 12/28/2009 ADVANCE DIRECTIVE / LIVING WILL POWER OF ELECTRICAL HIGH TENSION TESTER * Full Code (Latest Code Status on [...] Care Agent (per Health Care Power of Clinical Specialist Medical Device document) Care Teams Fish Warden Relationship Specialty Start Date End Date Magy Segal MD [address] [place] [address] PCP - General Internal Medicine 08/08/19 documented as of this encounter
--- OUTSIDE RECORDS SUMMARY | 2024-04-02 09:23 | External Medical Summary | Summary of Care ---
Author Name Unknown Organization [facility] Address [address] [facility] [place] [address] Phone [phone] Care Team Providers Care Batch Unit Treater Name Role Phone Magy Segal MD Primary Care Provider + Reason for Visit * Reason Comments Dosage Adjustment Via Phone (anticoag Cl inic) Encounter Details Date Type Department Care Team (Late st Contact Info) Description 03/07/2024 6:00 AM EDT Anticoagulation Centralized Clinical Pharmacy Services, Bogdan [address] [place] [address] [place] [address] S/P MVR (mitral valve replacement)*; Bioprosthetic mitral valve replacement, current hospitalization Allergies Active Allergy Reactions Criticality Noted Date Comments Haseeb Inhibitors Cough 04/04/2010 documented as of this encounter (statuses as of 03/07/2024) Medications Medication Sig Dispensed Refills Start Date End Date Status aspirin 81 MG chewable tablet Take 1 Tab by mouth daily. 30 Tab 3 09/28/2016 Active OneTouch Delica Lancets 33GIndications:Type 2 diabetes mellitus with hemoglobin A1c goal of less than 7.5% ([facility]) Test blood sugar once daily 100 Each 3 06/15/2020 Active OneTouch Verio In Vitro Strip (Glucose Blood)Indications:T ype 2 diabetes mellitus with hemoglobin A1c goal of less than 7.5% (HCC) Test blood sugar once daily 100 Strip 3 07/21/2020 Active Warfarin Sodium 5 MG Oral Tablet (Jantoven)Indicatio ns:Coronary artery disease involving [place] coronary artery of 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 coronary artery of [place] heart without angina pectoris 09/12/2016 Overview: 80% [...] as of this encounter (statuses as of 03/07/2024) Resolved Problems Problem Noted Date Diagnosed Date [...] as of this encounter (statuses as of 03/07/2024) Immunizations Name Administration Dates Next Due COVID-19 mRNA, LNP-s, No Pre serve, 2-Dose Series ([employer]) 08/27/2021,09/22/2020,09/01/2020 Hepatitis B, 20+ yrs 09/12/2016 Pneumococcal [...] of this encounter Progress Notes * Nathan Crews airplane dispatcher - 03/07/2024 8:57 AM EDT Contacts Contact Date/Time Type Contact Phone/Fax 03/07/2024 08:56 AM EDT Phone (Outgoing) IVETT VILLAFUERTE (Emergency Contact) [phone] (M) Subjective Patient Findings Negatives: Signs/symptoms of thrombosis, [...] communicated as noted by Pharmacist: Yes Nathan C HEMA Crews 03/07/2024, 8:57 AM * Nancy Medrano RPh - 03/07/2024 8:18 AM EDT Coumadin Clinic (region specific) Objective Current Warfarin Dose As of 03/07/2024 Warfarin maintenance plan: 5 mg (5 mg x 1) every Sun, Tue, Darya; 2.5 mg (5 mg x 0.5) all other days INR Result As of 03/07/2024 INR goal: 2.0-3.0 INR used for dosin.5 (03/06/2024) Assessment & Plan Warfarin Plan As of 03/07/2024 Full warfarin instructions: 5 mg every Sun, Tue, Darya; 2.5 mg all other days No change documented: Nancy Medrano RPh Next INR check: 03/27/2024 Repeat PT/INR in 3 week(s) Weekly dose: not changed Additional Dosing Information: Description [facility]) Tech to contact patient with dose instructions as noted. Nancy Medrano RPh 03/07/2024, 8:18 AM documented in this encounter Plan of Treatment Upcoming Encounters Date Type Department Care Team (Late st Contact Info) Description 03/13/2024 10:00 AM EDT Office Visit General Internal Medicine State [place] [address] [place] [address] Magy Segal MD [address] [place] [address] [address] 03/27/2024 7:00 AM EDT Laboratory Lab Mobile Phlebotomy [facility] [address] [place] [address] M[facility], Gml Mobile Home Draw [address] [place], [place] [address] Scheduled Procedures Name Priority Associated Diagnoses Date/Ti [...] Screening 08/02/2024 08/02/2023 CKD HGB USE SMARTSET 86387 08/07/202408/07, 2023, 06/12/2023, Additional history exists CKD PHOS USE SMARTSET 42068 08/07/202407/17, 2023, 05/21/2023, Additional history exists DTaP,Tdap,and [...] this encounter Medical Devices Implanted Type Area Specialties Operator Device Identifier Shelf Expiration Date Model / Serial / Lot Marker Coronary Am-Sd - [id number] Implanted:Qty : 2 on 09/22/2016 [place] [facility] [place]: Aorta [employer]ESSEE BI[employer] 06/14/2019 AMGM-SD / / [id number] Atriclip 35mm [id number] - [id number] Implanted:Qty : 1 on 09/22/2016 by Dejon [place] [facility] [place]: Heart ATRICURE 06/15/2018 [id number] / / [id number] Valve Heart Mitral Epic 27mm - [id number] - [id number] Implanted:Qty : 1 on 09/22/2016 by Dejon Carlos [place] [facility] [place]/A: Heart ST TAMIKO : CARDIOVASCULAR 04/26/2020 [id number]-2 0 / [id number] / Sut Steel 6 M654g - [id number] Implanted:Qty : 4 on 09/22/2016 by Dejon Carlos [place] [facility] [place]A: Sternum JNJ : [employer] 06/14/2021 M654G / / [id number] documented as of this encounter Visit Diagnoses Diagnosis S/P MVR (mitral valve replacement)- Primary Heart valve replaced by other means Bioprosthetic mitral valve replacement, current hospitalization Heart valve replaced by other means documented in this encounter Advance Directives Documents on File Type Date Recorded Patient Incinerator Attendant Expl anation Advance Directives and Living Will 12/28/2009 ADVANCE DIRECTIVE / LIVING WILL POWER OF MARKET RESEARCH WORKER * Full Code (Latest Code Status on [...] Care Agent (per Health Care Power of Consulting Psychologist document) Care Teams Batch Unit Treater Relationship Specialty Start Date End Date Magy Segal MD [address] [place] [address] PCP - General Internal Medicine 08/08/19 documented as of this encounter
--- OUTSIDE RECORDS SUMMARY | 2024-04-02 09:23 | External Medical Summary | Summary of Care ---
Author Name Unknown Organization [facility] Address [address] [facility] [place] [address] Phone [phone] Care Team Providers Care Cutter Grind Tool Technician Name Role Phone Magy Segal MD Primary Care Provider + Reason for Visit * Reason Comments Dosage Adjustment Via Phone (anticoag Cl inic) Encounter Details Date Type Department Care Team (Late st Contact Info) Description 02/12/2024 6:00 AM EDT Anticoagulation Centralized Clinical Pharmacy Services, Bogdan [address] [place] [address] [place] [address] S/P MVR (mitral valve replacement)*; Bioprosthetic mitral valve replacement, current hospitalization Allergies Active Allergy Reactions Criticality Noted Date Comments Haseeb Inhibitors Cough 04/04/2010 documented as of this encounter (statuses as of 02/12/2024) Medications Medication Sig Dispensed Refills Start Date [...] Oral Tablet (Jantoven)Indicatio ns:Coronary artery disease involving [place] coronary artery of [place] heart without angina pectoris,S/P MVR (mitral valve [...] as of this encounter (statuses as of 02/12/2024) Active Problems Problem Noted Date Diagnosed Date [...] (NSTEMI) 07/20/2017 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 0 10/03/2016 Overview: ICD-10 update of inactive term S/P MVR (mitral valve replacement) 09/28/2016 Overview: Bioprosthetic 29mm epic valve Coronary artery disease invo lving [place] coronary artery of [place] heart without angina pectoris 09/12/2016 Overview: 80% [...] as of this encounter (statuses as of 02/12/2024) Resolved Problems Problem Noted Date Diagnosed Date [...] as of this encounter (statuses as of 02/12/2024) Immunizations Name Administration Dates Next Due COVID-19 mRNA, LNP-s, No Pre serve, 2-Dose Series ([employer]) 08/27/2021,09/22/2020,09/01/2020 Hepatitis B, 20+ yrs 09/12/2016 Pneumococcal [...] on file Are you (or your family) mmii eless or worried that you might be [...] this encounter Progress Notes * Nathan Crews PHARM Tech - 02/12/2024 9:28 AM EDT Contacts Type Contact Phone/Fax 02/12/2024 09:26 AM EDT Phone (Outgoing) IVETT VILLAFUERTE (Emergency Contact) [phone] (M) Subjective Patient Findings Negatives: Signs/symptoms of [...] as noted by Pharmacist: Yes Nathan Crews internet salesperson 02/12/2024, 9:28 AM * Nancy Medrano RPh - 02/12/2024 8:39 AM EDT Coumadin Clinic (region specific) Objective Current Warfarin Dose As of 02/12/2024 Warfarin maintenance plan: 5 mg (5 mg x 1) every Sun, Tue, Darya; 2.5 mg (5 mg x 0.5) all other days INR Result As of 02/12/2024 INR goal: 2.0-3.0 INR used for dosin.3 (02/11/2024) Assessment & Plan Warfarin Plan As of 02/12/2024 Full warfarin instructions: 5 mg every Sun, Tue, Darya; 2.5 mg all other days No change documented: Nancy Medrano RPh Next INR check: 03/03/2024 Repeat PT/INR in 3 week(s) Weekly dose: not changed Additional Dosing Information: Description [facility]) Tech to contact patient with dose instructions as noted. Nancy Medrano RPh 02/12/2024, 8:39 AM documented in this encounter Plan of Treatment Upcoming Encounters Date Type Department Care Team (Late st Contact Info) Description 03/03/2024 7:00 AM EDT Laboratory Lab Mobile Phlebotomy [facility] [address] [place] [address] M[facility], Gml Mobile Home Draw [address] [place] [address] 03/13/2024 10:00 AM EDT Office Visit General Internal Medicine State [place] [address] [place] [address] Magy Segal MD [address] [place] [address] [address] Scheduled Procedures Name Priority Associated Diagnoses Date/Ti [...] Screening 08/02/2024 08/02/2023 CKD HGB USE SMARTSET 15534 08/07/202408/07, 2023, 06/12/2023, Additional history exists CKD PHOS USE SMARTSET 31412 08/07/202407/17, 2023, 05/21/2023, Additional history exists DTaP,Tdap,and [...] this encounter Medical Devices Implanted Type Area Chicken Catcher Device Identifier Shelf Expiration Date Model / Serial / Lot Marker Coronary Am-Sd - [id number] Implanted:Qty : 2 on 09/22/2016 by Dejon Carlos MD at OR [facility] [place] N/A: Aorta [employer]ESSEE BI[employer] 06/14/2019 AM-SD / / [id number] Atriclip 35mm [id number] - [id number] Implanted:Qty : 1 on 09/22/2016 by Dejon Carlos MD at OR [facility] [place] N/A: Heart ATRICURE 06/15/2018 [id number] / / [id number] Valve Heart Mitral Epic 27mm - [id number] - [id number] Implanted:Qty : 1 on 09/22/2016 by Dejon Carlos MD at OR [facility] [place] N/A: Heart ST TAMIKO : CARDIOVASCULAR 04/26/2020 [id number]-[id number] 0 / [id number] / Sut Steel 6 M654g - [id number] Implanted:Qty : 4 on 09/22/2016 by Dejon Carlos MD at OR [facility] [place] N/A: Sternum JNJ : [employer] 06/14/2021 M654G / / [id number] documented as of this encounter Visit Diagnoses Diagnosis S/P MVR (mitral valve replacement)- Primary Heart valve replaced by other means Bioprosthetic mitral valve replacement, current hospitalization Heart valve replaced by other means documented in this encounter Advance Directives Documents on File Type Date Recorded 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
--- OUTSIDE RECORDS SUMMARY | 2024-04-02 09:23 | External Medical Summary | Summary of Care ---
Author Name Unknown Organization [facility] Address [address] [facility] [place] [address] Phone [phone] Care Team Providers Care Aviation Safety Technician Name Role Phone Magy Segal MD Primary Care Provider + Reason for Visit * Reason Comments Dosage Adjustment Via Phone (anticoag Cl inic) Encounter Details Date Type Department Care Team (Late st Contact Info) Description 01/16/2024 6:00 AM EDT Anticoagulation Centralized Clinical Pharmacy Services, Bogdan [address] [place] [address] [place] [address] S/P MVR (mitral valve replacement)*; Bioprosthetic mitral valve replacement, current hospitalization Allergies Active Allergy Reactions Criticality Noted Date Comments Haseeb Inhibitors Cough 04/04/2010 documented as of this encounter (statuses as of 01/16/2024) Medications Medication Sig Dispensed Refills Start Date End Date Status aspirin 81 MG chewable tablet Take 1 Tab by mouth daily. 30 Tab 3 09/28/2016 Active OneTouch Delica Lancets 33GIndications:Type 2 diabetes mellitus with hemoglobin A1c goal of less than 7.5% ([facility]) Test blood sugar once daily 100 Each 3 06/15/2020 Active OneTouch Verio In Vitro Strip (Glucose Blood)Indications:T ype 2 diabetes mellitus with hemoglobin A1c goal of less than 7.5% (HCC) Test blood sugar once daily 100 Strip 3 07/21/2020 Active Warfarin Sodium 5 MG Oral Tablet (Jantoven)Indicatio ns:Coronary artery disease involving [place] coronary artery of [place] heart without angina pectoris,S/P MVR (mitral valve [...] EVERY DAY 135 Tablet 3 08/13/2023 Active glipiZIDE 5 MG Oral Tablet (Glucotrol) TAKE 1 TABLET BY MOUTH IN THE MORNING 30 MINUTES BEFORE A MEAL 90 Tablet 1 08/28/2023 Active Metoprolol Tartrate 25 MG Oral Tablet (Lopressor)Indicati ons:Essential hypertension with goal blood pressure less than 140/90,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 TAKE 1 TABLET BY MOUTH TWICE DAILY 180 Tablet 1 09/22/2023 Active Fluticasone Propionate 50 MCG/ACT Nasal Suspension (Flonase)Indication s:Chronic rhinitis Administer 2 Sprays into each nostril at bedtime. 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 0 10/03/2016 Overview: ICD-10 update of inactive term S/P MVR (mitral valve replacement) 09/28/2016 Overview: Bioprosthetic 29mm epic valve Coronary artery disease invo lving [place] coronary artery of [place] heart without angina pectoris 09/12/2016 Overview: 80% [...] as of this encounter (statuses as of 01/16/2024) Resolved Problems Problem Noted Date Diagnosed Date [...] as of this encounter (statuses as of 01/16/2024) Immunizations Name Administration Dates Next Due COVID-19 mRNA, LNP-s, No Pre serve, 2-Dose Series ([employer]) 08/27/2021,09/22/2020,09/01/2020 Hepatitis B, 20+ yrs 09/12/2016 Pneumococcal [...] Notes * Sophie Ramirez PHARM Tech - 01/16/2024 9:54 AM EDT Contacts Type Contact Phone/Fax 01/16/2024 09:53 AM EDT Phone (Outgoing) IVETT VILLAFUERTE (Emergency Contact) [phone] (M) Left Message Subjective Advised patient to contact Anticoagulation Clinic if any unusual bruising or bleeding, recent illness, changes in medication, or questions/concerns. PT/INR results, Coumadin dose instructions, and next PT/INR date communicated as noted by Pharmacist: Yes HEMA EVANS 01/16/2024, 9:54 AM * Nancy Medrano [facility] - 01/16/2024 8:25 AM EDT Coumadin Clinic (region specific) Objective Current Warfarin Dose As of 01/16/2024 Warfarin maintenance plan: 5 mg (5 mg x 1) every Sun, Tue, Darya; 2.5 mg (5 mg x 0.5) all other days INR Result As of 01/16/2024 INR goal: 2.0-3.0 INR used for dosin.7 (01/15/2024) Assessment & Plan Warfarin Plan As of 01/16/2024 Full warfarin instructions: 5 mg every Sun, Tue, Darya; 2.5 mg all other days No change documented: Nancy Medrano RPh Next INR check: 02/05/2024 Repeat PT/INR in 3 week(s) Weekly dose: not changed Additional Dosing Information: Description [facility] Tech to contact patient with dose instructions as noted. Nancy Medrano RPh 01/16/2024, 8:25 AM documented in this encounter Plan of Treatment Upcoming Encounters Date Type Department Care Team (Late st Contact Info) Description 02/05/2024 7:10 AM EDT Laboratory Lab Mobile Phlebotomy [facility] [address] [place] [address] [facility] Mobile Home Draw [address] [place] [address] 03/13/2024 10:00 AM EDT Office Visit General Internal Medicine State Jesus White [address] [place] [address] Magy Segal MD 200 [facility] [place] [address] Scheduled Procedures Name Priority Associated Diagnoses Date/Ti [...] Screening 08/02/2024 08/02/2023 CKD HGB USE SMARTSET 48871 08/07/202408/07, 2023, 06/12/2023, Additional history exists CKD PHOS USE SMARTSET 25560 08/07/202407/17, 2023, 05/21/2023, Additional history exists DTaP,Tdap,and [...] this encounter Medical Devices Implanted Type Area Leather Coverer Device Identifier Shelf Expiration Date Model / Serial / Lot Marker Coronary [facility]-Sd - [id number] Implanted:Qty : 2 on 09/22/2016 by Dejon Carlos MD at [place] [facility] N/A: Aorta [employer]SEE [employer] 06/14/2019 [facility]-SD / / [id number] Atriclip 35mm [id number] - [id number] Implanted:Qty : 1 on 09/22/2016 by Dejon Carlos MD at [place] [facility] [place] N/A: Heart ATRICURE 06/15/2018 [id number] / / [id number] Valve Heart Mitral Epic 27mm - [id number] - [id number] Implanted:Qty : 1 on 09/22/2016 by Dejon Carlos MD at [place] [facility] [place] N/A: Heart ST TAMIKO : CARDIOVASCULAR 04/26/2020 [id number] 0 / [id number] / Sut Steel 6 M654g - [id number] Implanted:Qty : 4 on 09/22/2016 by Dejon Carlos MD at [place] [facility] [place] N/A: Sternum JNJ : [employer] 06/14/2021 [id number] / / [id number] documented as of this encounter Visit Diagnoses Diagnosis S/P MVR (mitral valve replacement)- Primary Heart valve replaced by other means Bioprosthetic mitral valve replacement, current hospitalization Heart valve replaced by other means documented in this encounter Advance Directives Documents on File Type Date Recorded Patient Belt Operator Expl anation Advance Directives and Living Will 12/28/2009 ADVANCE DIRECTIVE / LIVING WILL POWER OF HOBBER * Full Code (Latest Code Status on [...] Relationship Healthcare Agent Relationshi p Communication Ivett Ford[place] Adult Child First Alternate Health Care Agent (per Health Care Power of Hi Lo Driver document) Care Teams Aviation Safety Technician Relationship Specialty Start Date End Date Magy Segal MD [address] [place] [address] PCP - General Internal Medicine 08/08/19 documented as of this encounter
--- OUTSIDE RECORDS SUMMARY | 2024-04-02 09:23 | External Medical Summary ---
Author Name Unknown Address Unknown Organization [facility] [address] [place] [address] Laboratory Report Ordering Provider Test Date Status DANISHA LOPEZ 02/11/2024 07:36:00 Final Standing order for pt/inr.
Please draw pt/inr every 1 to 4 weeks as requested
Results to [facility]

Warfarin Therapy
INR: 2.0-3.0 conventional anticoagulation
INR: 2.5-3.5 high intensity anticoagulation Observation Date Value Abnormality Reference (Units ) Status PT 02/11/2024 07:36:00 25.8 Above high normal 11 .6-15.2 (seconds) Final INR 02/11/2024 07:36:00 2.3 Above high normal 0. 8-1.2 Final Performing Location [facility] [address] [place] [address]
--- OUTSIDE RECORDS SUMMARY | 2024-04-02 09:23 | External Medical Summary ---
Author Name Unknown Address Unknown Organization [facility] [address] [place] [address] Laboratory Report Ordering Provider Test Date Status OLIVE WOLFF 03/06/2024 08:21:00 Final Standing order for pt/inr. < br/>Please draw pt/inr every 1 to 4 weeks as requested
Results to [facility] Anticoagulation [facility]

Warfarin Therapy
INR: 2.0-3.0 conventional anticoagulation
INR: 2.5-3.5 high intensity anticoagulation Observation Date Value Abnormality Reference (Units ) Status PT 03/06/2024 08:21:00 27.1 Above high normal 11 .6-15.2 (seconds) Final INR 03/06/2024 08:21:00 2.5 Above high normal 0. 8-1.2 Final Performing Location [facility] [address] [place] [address]
--- OUTSIDE RECORDS SUMMARY | 2024-04-02 09:24 | External Medical Summary | Summary of Care ---
Author Name Unknown Organization [facility] Address [address] [facility] [address] Phone [phone] Care Team Providers Care Energy Efficient Site Manager Name Role Phone Sven Segal MD Primary Care Provider + Reason for Visit * Reason Comments eRx-Medication Refill Encounter Details Date Type Department Care Team (Late st Contact Info) Description 11/08/2023 Refill General Internal Medicine [facility] 200 [facility] [place] [address] Yajaira Dow MD 200 [place] [address] Chronic rhinitis Allergies Active Allergy Reactions Criticality Noted Date Comments Haseeb Inhibitors Cough 04/04/2010 documented as of this encounter (statuses as of 11/09/2023) Medications Medication Sig Dispensed Refills Start Date End Date Status aspirin 81 MG chewable tablet Take 1 Tab by mouth daily. 30 Tab 3 09/28/2016 Active OneTouch Delica Lancets 33GIndications:Ty pe 2 diabetes mellitus with hemoglobin A1c goal of less than 7.5% ([facility]) Test blood sugar once daily 100 Each 3 06/15/2020 Active OneTouch Verio In Vitro Strip (Glucose Blood)Indications :Type 2 diabetes mellitus with hemoglobin A1c goal of less than 7.5% ([facility]) Test blood sugar once daily 100 Strip 3 07/21/2020 Active Warfarin Sodium 5 MG Oral Tablet (Jantoven)Indicat ions:Coronary artery disease involving [place] coronary artery of [place] heart without angina pectoris,S/P MVR (mitral valve [...] mouth in the morning. 0 05/21/2023 Active Additional Information Patient not taking.Reported [...] the evening and 2 Tablets before bedtime. 0 Active Losartan Potassium 50 MG Oral Tablet [...] at bedtime. 16 g 1 11/09/2023 Active Fluticasone Propionate 50 MCG/ACT Nasal SuspensionIndicat ions:Chronic rhinitis Administer 2 Sprays into each nostril at bedtime. 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 0 10/03/2016 Overview: ICD-10 update of inactive term S/P MVR (mitral valve replacement) 09/28/2016 Overview: Bioprosthetic 29mm epic valve Coronary artery disease invo lving [place] coronary artery of [place] heart without angina pectoris 09/12/2016 Overview: 80% [...] as of this encounter (statuses as of 11/09/2023) Resolved Problems Problem Noted Date Diagnosed Date [...] as of this encounter (statuses as of 11/09/2023) Immunizations Name Administration Dates Next Due COVID-19 mRNA, LNP-s, No Pre serve, 2-Dose Series ([place]) 08/27/2021,09/22/2020,09/01/2020 Hepatitis B, 20+ yrs 09/12/2016 Pneumococcal [...] money to get more. Never true 08/02/2023 Sex and Gender Information Value Date [...] encounter Miscellaneous Notes * Telephone Encounter - Jessica Gonzalez RPh - 11/09/2023 11:58 AM EDTSigned Prescriptions: Disp Refills Fluticasone Propionate 50 MCG/ACT Nasal [place]*16 g 1 Sig: Administer 2 Sprays into each nostril at bedtime.Authorizing Provider: SVEN SEGAL User: JESSICA GONZALEZ documented in this encounter Plan of Treatment Upcoming Encounters Date Type Department Care Team (Late st Contact Info) Description 11/20/2023 7:00 AM EDT Laboratory Lab Mobile Phlebotomy [facility] [address] [place] [address] [facility] Mobile Home Draw [address] [place] [address] 11/21/2023 6:00 AM EDT Anticoagulation Pharmacy Call Center [address] [place] [address] [facility] [address] [place] [address] 03/13/2024 10:00 AM EDT Office Visit General Internal Medicine State Jesus White [address] [place] [address] Sven Segal MD [address] [place] [address] Scheduled Procedures Name Priority Associated Diagnoses Date/Ti [...] Additional history exists Influenza Vaccine (FLU shot) (Season Ended) 2024 08/29/2022, 07/25/2021, 05/06/2020, Additional history exists Albumin/Creatinine Ratio 05/25/2024 023, 08/20/2020, 02/10/2020, Additional history exists Depression Screening 08/02/2024 08/02/2023 CKD HGB USE SMARTSET 33872 08/07/202408/07, 2023, 06/12/2023, Additional history exists CKD PHOS USE SMARTSET 84260 08/07/202407/17, 2023, 05/21/2023, Additional history exists DTaP,Tdap,and [...] this encounter Medical Devices Implanted Type Area Turkey Boner Device Identifier Shelf Expiration Date Model / Serial / Lot Marker [facility]ary [facility]-Sd - [id number] Implanted:Qty : 2 on 09/22/2016 by Dejon Carlos MD at OR [facility] N/A: Aorta [employer] 06/14/2019 [facility] / / [id number] Atriclip 35mm [id number] - [id number] Implanted:Qty : 1 on 09/22/2016 by Dejon Carlos MD at OR [facility] N/A: Heart ATRICURE 06/15/2018 [id number] / / [id number] Valve Heart Mitral Epic 27mm - [id number] - [id number] Implanted:Qty : 1 on 09/22/2016 by Dejon Carlos MD at OR [facility] N/A: Heart ST TAMIKO : CARDIOVASCULAR 04/26/2020 [id number]-8 0 / [id number] / Sut Steel 6 M654g - [id number] Implanted:Qty : 4 on 09/22/2016 by Dejon Carlos MD at OR [facility] N/A: Sternum JNJ : [employer] 06/14/2021 M654G / / [id number] documented as of this encounter Visit Diagnoses Diagnosis Chronic rhinitis documented in this encounter Advance Directives Documents on File Type Date Recorded Patient Digital Marketing Assistant Expl anation Advance Directives and Living Will 12/28/2009 ADVANCE DIRECTIVE / LIVING WILL POWER OF ECLECTIC DOCTOR Latest Code Status on File Code Status Date Activated Date Inactivated Comments Full Code 09/22/2016 12:20 PM 09/28/2016 3:42 PM This order reflects the patients wishes and were consensually agreed upon. Question Answer Comments Discussion of Advance Directives occurred with: Patient Does the patient have a Living Will? No Does the patient have Health Care Power of Apiarist? No Healthcare Agents on File Name Relationship Healthcare Agent Relationshi p Communication Ivett [place] Adult Child First Alternate Health Care Agent (per Health Care Power of Apiarist document) Care Teams Energy Efficient Site Manager Relationship Specialty Start Date End Date Sven Segal MD 200 [place] [address] PCP - General Internal Medicine 08/08/19 documented as of this encounter
--- OUTSIDE RECORDS SUMMARY | 2024-04-02 09:24 | External Medical Summary ---
Author Name Unknown Address Unknown Organization [facility] [address] [place] [address] Laboratory Report Ordering Provider Test Date Status DANISHA LOPEZ 01/15/2024 07:03:00 Final Standing order for pt/inr.
Please draw pt/inr every 1 to 4 weeks as requested
Results to [facility] Anticoagulation Clinic

Warfarin Therapy
INR: 2.0-3.0 conventional anticoagulation
INR: 2.5-3.5 high intensity anticoagulation Observation Date Value Abnormality Reference (Units ) Status PT 01/15/2024 07:03:00 28.9 Above high normal 11 .6-15.2 (seconds) Final INR 01/15/2024 07:03:00 2.7 Above high normal 0. 8-1.2 Final Performing Location [facility] [address] [place] [address]
--- OUTSIDE RECORDS SUMMARY | 2024-04-02 09:24 | External Medical Summary | Summary of Care ---
Author Name Unknown Organization [facility] Address [address] [facility] [place] [address] Phone [phone] Care Team Providers Care Justowriter Operator Name Role Phone Magy Segal MD Primary Care Provider + Reason for Visit * Reason Comments Dosage Adjustment Via Phone (anticoag Cl inic) Encounter Details Date Type Department Care Team (Latest Contact Info) Description 12/26/2023 6:00 AM EDT Anticoagulation Centralized Clinical Pharmacy Services, Bogdan Coles [address] [place] [address] [place] [address] [place] [address] [address] [facility] [place] [address] S/P MVR (mitral valve replacement)*; Bioprosthetic mitral valve replacement, current hospitalization Allergies Active Allergy Reactions Criticality Noted Date Comments Haseeb Inhibitors Cough 04/04/2010 documented as of this encounter (statuses as of 12/26/2023) Medications Medication Sig Dispensed Refills Start Date [...] Oral Tablet (Jantoven)Indicatio ns:Coronary artery disease involving [place] coronary artery of [place] heart without angina pectoris,S/P MVR (mitral [...] as of this encounter (statuses as of 12/26/2023) Active Problems Problem Noted Date Diagnosed Date [...] (NSTEMI) 07/20/2017 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 assisted current use of 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 therapy 0 10/03/2016 Overview: ICD-10 update of inactive term S/P MVR (mitral valve replacement) 09/28/2016 Overview: Bioprosthetic 29mm epic valve Coronary artery disease invo lving [place] coronary artery of [place] heart without angina pectoris 09/12/2016 Overview: [...] as of this encounter (statuses as of 12/26/2023) Resolved Problems Problem Noted Date Diagnosed Date [...] as of this encounter (statuses as of 12/26/2023) Immunizations Name Administration Dates Next Due COVID-19 mRNA, LNP-s, No Pre serve, 2-Dose Series ([place]) 08/27/2021,09/22/2020,09/01/2020 Hepatitis B, 20+ yrs 09/12/2016 Pneumococcal [...] as of this encounter Progress Notes * Sondra [place], brazer assembler - 12/26/2023 8:15 AM EDT Contacts Type Contact Phone/Fax 12/26/2023 08:14 AM EDT Phone (Outgoing) NOYIVETT (Emergency Contact) [phone] (M) Spoke [facility] Ivett. Subjective Patient Findings Negatives: Signs/symptoms of bleeding, Change in health, Change in activity, Upcoming invasive procedure, Missed doses, Extra doses, Change in medications, Change in diet/appetite, Bruising Advised patient to contact Anticoagulation Clinic if any unusual bruising or bleeding, recent illness, changes in medication, or questions/concerns. PT/INR results, Coumadin dose instructions, and next PT/INR date communicated as noted by Pharmacist: HEMA Hays 12/26/2023, 8:15 AM * Nancy Medrano RPh - 12/26/2023 8:00 AM EDT Coumadin Clinic (region specific) Objective Current Warfarin Dose As of 12/26/2023 Warfarin maintenance plan: 5 mg (5 mg x 1) every Sun, Tue, Darya; 2.5 mg (5 mg x 0.5) all other days INR Result As of 12/26/2023 INR goal: 2.0-3.0 INR used for dosin.5 (12/25/2023) Assessment & Plan Warfarin Plan As of 12/26/2023 Full warfarin instructions: 5 mg every Sun, Tue, Darya; 2.5 mg all other days No change documented: Nancy Medrano RPh Next INR check: 01/15/2024 Repeat PT/INR in 3 week(s) Weekly dose: not changed Additional Dosing Information: Description [facility]) Tech to contact patient with dose instructions as noted. Nancy Medrano RPh 12/26/2023, 8:00 AM documented in this encounter Plan of Treatment Upcoming Encounters Date Type Department Care Team ([facility] Contact Info) Description 01/16/2024 6:00 AM EDT Anticoagulation Centralized Clinical Pharmacy Services, Bogdan Coles [address] [place] [address] [place] [address] [facility] [address] [facility] [place] [address] 03/13/2024 10:00 AM EDT Office Visit General Internal Medicine Franklyn Caraballo [place] [address] [facility] [place] [address] Magy Segal MD 200 [facility] [place] [address] Scheduled Procedures Name Priority Associated Diagnoses Date/Ti [...] Screening 08/02/2024 08/02/2023 CKD HGB USE SMARTSET 58380 08/07/202408/07, 2023, 06/12/2023, Additional history exists CKD PHOS USE SMARTSET 33392 08/07/202407/17, 2023, 05/21/2023, Additional history exists DTaP,Tdap,and [...] this encounter Medical Devices Implanted Type Area Safety Grooving Machine Operator Device Identifier Shelf Expiration Date Model / Serial / Lot Marker Coronary [facility]-Sd - [id number] Implanted:Qty : 2 on 09/22/2016 by Dejon Carlos MD at [place] [facility] [place] N/A: Aorta [employer]SEE [employer] 06/14/2019 [facility] / / [id number] Atriclip 35mm [id number] - [id number] Implanted:Qty : 1 on 09/22/2016 by Dejon Carlos MD at OR [facility] [place] N/A: Heart ATRICURE 06/15/2018 [id number] / / [id number] Valve Heart Mitral Epic 27mm - [id number] - [id number] Implanted:Qty : 1 on 09/22/2016 by Dejon Carlos MD at OR [facility] [place] N/A: Heart ST TAMIKO : CARDIOVASCULAR 04/26/2020 [id number] 0 / [id number] / Sut Steel 6 M654g - [id number] Implanted:Qty : 4 on 09/22/2016 by Dejon Carlos MD at OR [facility] [place] N/A: Sternum JNJ : [employer] 06/14/2021 M654G / / [id number] documented as of this encounter Visit Diagnoses Diagnosis S/P MVR (mitral valve replacement)- Primary Heart valve replaced by other means Bioprosthetic mitral valve replacement, current hospitalization Heart valve replaced by other means documented in this encounter Advance Directives Documents on File Type Date Recorded Patient Ordering Box Operator Expl anation Advance Directives and Living Will 12/28/2009 ADVANCE DIRECTIVE / LIVING WILL POWER OF MEDIA LAW FACULTY MEMBER * Full Code (Latest Code Status on [...] Care Agent (per Health Care Power of Qa Software Tester document) Care Teams Justowriter Operator Relationship Specialty Start Date End Date Magy Segal MD 200 [facility] [place] [address] PCP - General Internal Medicine 08/08/19 documented as of this encounter
--- OUTSIDE RECORDS SUMMARY | 2024-04-02 09:24 | External Medical Summary | Summary of Care ---
Author Name Unknown Organization [facility] Address [address] [place] [address] Phone [phone] Care Team Providers Care Pediatric Oncologist Name Role Phone Magy Segal MD Primary Care Provider + Encounter Details Date Type Department Care Team (Late st Contact Info) Description 07/28/2023 Result Scan Unspecified Department <No scans attached> Allergies Active Allergy Reactions Criticality Noted Date Comments Haseeb Inhibitors Cough 04/04/2010 documented as of this encounter (statuses as of 01/01/2024) Medications Medication Sig Dispensed Refills Start Date End Date Status aspirin 81 MG chewable tablet Take 1 Tab by mouth daily. 30 Tab 3 09/28/2016 Active OneTouch Delica Lancets 33GIndications:Typ e 2 diabetes mellitus with hemoglobin A1c goal of less than 7.5% ([facility] [place] [facility]) Test blood sugar once daily 100 Each 3 06/15/2020 Active OneTouch Verio In Vitro Strip (Glucose Blood)Indications: Type 2 diabetes mellitus with hemoglobin A1c goal of less than 7.5% ([facility]) Test blood sugar once daily 100 Strip 3 07/21/2020 Active Warfarin Sodium 5 MG Oral Tablet (Jantoven)Indicati ons:Coronary artery disease involving ekwok coronary artery of ekwok heart without angina pectoris,S/P MVR (mitral valve [...] 04/03/2023 Active Loratadine 10 MG Oral Tablet (Claritin)Indicati ons:Acute otitis media, left Take 1 Tablet by mouth in the morning. 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 USP current use of 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 therapy 0 10/03/2016 Overview: ICD-10 update of inactive term S/P MVR (mitral valve replacement) 09/28/2016 Overview: Bioprosthetic 29mm epic valve Coronary artery disease invo lving ekwok coronary artery of ekwok heart without angina pectoris 09/12/2016 Overview: 80% [...] as of this encounter (statuses as of 01/01/2024) Resolved Problems Problem Noted Date Diagnosed Date [...] as of this encounter (statuses as of 01/01/2024) Immunizations Name Administration Dates Next Due COVID-19 mRNA, LNP-s, No Pre serve, 2-Dose Series (Foundation Software) 08/27/2021,09/22/2020,09/01/2020 Hepatitis B, 20+ yrs 09/12/2016 Pneumococcal [...] Care Team (Late st Contact Info) Description 01/15/2024 7:10 AM EDT Laboratory Lab Mobile Phlebotomy [facility] [address] [place] [address] [address] [facility], [facility] Mobile Home Draw [address] [facility] [place] [address] 01/16/2024 6:00 AM EDT An[facility], Bogdan Coles [address] [place] [address] [place] [address] [place] [address] 60 [facility] [place] [address] 03/13/2024 10:00 AM EDT Office Visit General Internal Medicine State Jesus White [address] [place] [address] [address] Magy Segal MD 200 [facility] [place] [address] Scheduled Procedures Name Priority Associated Diagnoses Date/Ti [...] Screening 08/02/2024 08/02/2023 CKD HGB USE SMARTSET 00102 08/07/202408/07, 2023, 06/12/2023, Additional history exists CKD PHOS USE SMARTSET 12508 08/07/202407/17, 2023, 05/21/2023, Additional history exists DTaP,Tdap,and [...] this encounter Medical Devices Implanted Type Area Autotransfusionist Device Identifier Shelf Expiration Date Model / Serial / Lot Marker Coronary [facility] - [id number] Implanted:Qty : 2 on 09/22/2016 by Dejon Carlos MD [place] [facility] [place]A: Aorta [employer] 06/14/2019 [facility] / / [id number] Atriclip 35mm [id number] - [id number] Implanted:Qty : 1 on 09/22/2016 by Dejon Carlos MD at [place] [facility] [place] N/A: Heart ATRICURE 06/15/2018 [id number] / / [id number] Valve Heart Mitral Epic 27mm - [id number] - [id number] Implanted:Qty : 1 on 09/22/2016 by Dejon Carlos MD at [place] [facility] [place] N/A: Heart ST TAMIKO : CARDIOVASCULAR 04/26/2020 [id number]-4 0 / [id number] / Sut Steel 6 M654g - [id number] Implanted:Qty : 4 on 09/22/2016 by Dejon Carlos MD at [place] [facility] [place] N/A: Sternum JNJ : [employer] 06/14/2021 [id number] / / [id number] documented as of this encounter Procedures Procedure Name Priority Date/Time Associated Diagnosis Comments EKG SCANNED RESULT 07/28/2023 documented in this encounter Results * EKG SCANNED RESULT (07/28/2023) 07/28/2023 No Physician Data Unknown EKG documented in this encounter Advance Directives Documents on File Type Date Recorded 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
--- OUTSIDE RECORDS SUMMARY | 2024-04-02 09:24 | External Medical Summary ---
Author Name Unknown Address Unknown Organization [facility] [address] [place] [address] Laboratory Report Ordering Provider Test Date Status DANISHA LOPEZ 11/20/2023 07:09:00 Final Standing order for pt/inr.
Please draw pt/inr every 1 to 4 weeks as requested
Results to [facility] Anticoagulation Clinic

Warfarin Therapy
INR: 2.0-3.0 conventional anticoagulation
INR: 2.5-3.5 high intensity anticoagulation Observation Date Value Abnormality Reference (Units ) Status PT 11/20/2023 07:09:00 29.8 Above high normal 11 .6-15.2 (seconds) Final INR 11/20/2023 07:09:00 2.8 Above high normal 0. 8-1.2 Final Performing Location [facility] [address] [place] [address]
--- OUTSIDE RECORDS SUMMARY | 2024-04-02 09:24 | External Medical Summary | Summary of Care ---
Author Name Unknown Organization [facility] Address [address] [facility] [place] [place] [address] Phone [phone] Care Team Providers Care Rug Washer Name Role Phone Magy Segal MD Primary Care Provider + Reason for Visit * Reason Comments Dosage Adjustment Via Phone (anticoag Cl inic) Encounter Details Date Type Department Care Team (Latest Contact Info) Description 12/05/2023 6:00 AM EDT Anticoagulation Pharmacy Call Center [phone] [place] [address] [facility] 58 60 [facility] [place] [address] S/P MVR (mitral valve replacement)*; Bioprosthetic mitral valve replacement, current hospitalization Allergies Active Allergy Reactions Criticality Noted Date Comments Haseeb Inhibitors Cough 04/04/2010 documented as of this encounter (statuses as of 12/05/2023) Medications Medication Sig Dispensed Refills Start Date End Date Status aspirin 81 MG chewable tablet Take 1 Tab by mouth daily. 30 Tab 3 09/28/2016 Active OneTouch Delica Lancets 33GIndications:Type 2 diabetes mellitus with hemoglobin A1c goal of less than 7.5% ([facility]) Test blood sugar once daily 100 Each 3 06/15/2020 Active OneTouch Verio In Vitro Strip (Glucose Blood)Indications:T ype 2 diabetes mellitus with hemoglobin A1c goal of less than 7.5% ([facility]) Test blood sugar once daily 100 Strip 3 07/21/2020 Active Warfarin Sodium 5 MG Oral Tablet (Jantoven)Indicatio ns:Coronary artery disease involving gulkana coronary artery of [...] as of this encounter (statuses as of 12/05/2023) Active Problems Problem Noted Date Diagnosed Date [...] (NSTEMI) 07/20/2017 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 0 10/03/2016 [...] as of this encounter (statuses as of 12/05/2023) Resolved Problems Problem Noted Date Diagnosed Date [...] as of this encounter (statuses as of 12/05/2023) Immunizations Name Administration Dates Next Due COVID-19 mRNA, LNP-s, No Pre serve, 2-Dose Series (Vee24) 08/27/2021,09/22/2020,09/01/2020 Hepatitis B, 20+ yrs 09/12/2016 Pneumococcal [...] of this encounter Progress Notes * Princess Marte, lease attendant - 12/05/2023 9:24 AM EDT Contacts Type Contact Phone/Fax 12/05/2023 09:22 AM EDT Phone (Outgoing) IVETT VILLAFUERTE (Emergency Contact) [phone] (M) Left Message Subjective Advised patient to contact Anticoagulation Clinic if any unusual bruising or bleeding, recent illness, changes in medication, or questions/concerns. PT/INR results, Coumadin dose instructions, and next PT/INR date communicated as noted by Pharmacist: Yes HEMA RUIZ Tech 12/05/2023, 9:24 AM * Nancy Medrano RPh - 12/05/2023 8:05 AM EDT Coumadin Clinic (region specific) Objective Current Warfarin Dose As of 12/05/2023 Warfarin maintenance plan: 5 mg (5 mg x 1) every Sun, Tue, Darya; 2.5 mg (5 mg x 0.5) all other days INR Result As of 12/05/2023 INR goal: 2.0-3.0 INR used for dosin.5 (12/04/2023) Assessment & Plan Warfarin Plan As of 12/05/2023 Full warfarin instructions: 5 mg every Sun, Tue, Darya; 2.5 mg all other days No change documented: Nancy Medrano RPh Next INR check: 12/25/2023 Repeat PT/INR in 3 week(s) Weekly dose: not changed Additional Dosing Information: Description [facility] Tech to contact patient with dose instructions as noted. Nancy Medrano RPh 12/05/2023, 8:05 AM documented in this encounter Plan of Treatment Upcoming Encounters Date Type Department Care Team (Late st Contact Info) Description 12/26/2023 6:00 AM EDT Anticoagulation Pharmacy Call Center WB [phone] [place] [address] [facility] 58 60 [facility] [place] [address] 03/13/2024 10:00 AM EDT Office Visit General Internal Medicine State [place] [address] [place] [address] Magy Segal MD [address] [facility] [place] [address] Scheduled Procedures Name Priority Associated Diagnoses Date/Ti [...] Screening 08/02/2024 08/02/2023 CKD HGB USE SMARTSET 34600 08/07/202408/07, 2023, 06/12/2023, Additional history exists CKD PHOS USE SMARTSET 12965 08/07/202407/17, 2023, 05/21/2023, Additional history exists DTaP,Tdap,and [...] this encounter Medical Devices Implanted Type Area Weight Control Engineer Device Identifier Shelf Expiration Date Model / Serial / Lot Marker [facility] [id number] Implanted:Qty : 2 on 09/22/2016 by Dejon Carlos MD at [place] [facility] [place] N/A: Aorta [employer] [facility]/14/2019 [facility] [id number] Atriclip 35mm [id number] - [id number] Implanted:Qty : 1 on 09/22/2016 by Dejon Carlos MD at [place] [facility] [place] N/A: Heart ATRICURE 06/15/2018 [id number] / / [id number] Valve Heart Mitral Epic 27mm - [id number] - [id number] Implanted:Qty : 1 on 09/22/2016 by Dejon Carlos MD at [place] [facility] [place] N/A: Heart ST TAMIKO : CARDIOVASCULAR 04/26/2020 I110-96A-2 0 / [id number] / Sut Steel 6 M654g - [id number] Implanted:Qty : 4 on 09/22/2016 by Dejon Carlos MD at [place] [facility] [place] N/A: Sternum JNJ : [employer] 06/14/2021 M654G / / [id number] documented as of this encounter Visit Diagnoses Diagnosis S/P MVR (mitral valve replacement)- Primary Heart valve replaced by other means Bioprosthetic mitral valve replacement, current hospitalization Heart valve replaced by other means documented in this encounter Advance Directives Documents on File Type Date Recorded Patient Assistant Terminal Manager Expl anation Advance Directives and Living Will 12/28/2009 ADVANCE DIRECTIVE / LIVING WILL POWER OF TELECOMMUNICATION LINES REPAIRER * Full Code (Latest Code Status on [...] Care Agent (per Health Care Power of Operating Room Specialist document) Care Teams Rug Washer Relationship Specialty Start Date End Date Magy Segal MD [address] [place] [address] PCP - General Internal Medicine 08/08/19 documented as of this encounter
--- OUTSIDE RECORDS SUMMARY | 2024-04-02 09:24 | External Medical Summary ---
Author Name Unknown Address Unknown Organization [facility] [address] [place] [address] Laboratory Report Ordering Provider Test Date Status DANISHA LOPEZ 12/04/2023 07:25:00 Final Standing order for pt/inr.
Please draw pt/inr every 1 to 4 weeks as requested
Results to [facility] Anticoagulation Clinic

Warfarin Therapy
INR: 2.0-3.0 conventional anticoagulation
INR: 2.5-3.5 high intensity anticoagulation Observation Date Value Abnormality Reference (Units ) Status PT 12/04/2023 07:25:00 27.1 Above high normal 11 .6-15.2 (seconds) Final INR 12/04/2023 07:25:00 2.5 Above high normal 0. 8-1.2 Final Performing Location [facility] [address] [place] [address]
--- OUTSIDE RECORDS SUMMARY | 2024-04-02 09:24 | External Medical Summary | Summary of Care ---
Author Name Unknown Organization [facility] Address [address] [facility] [place] [address] Phone [phone] Care Team Providers Care Bond Clerk Name Role Phone Magy Segal MD Primary Care Provider + Reason for Visit * Reason Comments Dosage Adjustment Via Phone (anticoag Cl inic) Encounter Details Date Type Department Care Team (Latest Contact Info) Description 11/21/2023 6:00 AM EDT Anticoagulation Pharmacy Call Center [phone] [place] [address] [facility] 58 [facility] [address] S/P MVR (mitral valve replacement)*; Bioprosthetic mitral valve replacement, current hospitalization Allergies Active Allergy Reactions Criticality Noted Date Comments Haseeb Inhibitors Cough 04/04/2010 documented as of this encounter (statuses as of 11/21/2023) Medications Medication Sig Dispensed Refills Start Date End Date Status aspirin 81 MG chewable tablet Take 1 Tab by mouth daily. 30 Tab 3 09/28/2016 Active OneTouch Delica Lancets 33GIndications:Type 2 diabetes mellitus with hemoglobin A1c goal of less than 7.5% ([facility]) Test blood sugar once daily 100 Each 3 06/15/2020 Active OneTouch Verio In Vitro Strip (Glucose Blood)Indications:T ype 2 diabetes mellitus with hemoglobin A1c goal of less than 7.5% ([facility]) Test blood sugar once daily 100 Strip 3 07/21/2020 Active Warfarin Sodium 5 MG Oral Tablet (Jantoven)Indicatio ns:Coronary artery disease involving anvik coronary artery of anvik heart without angina pectoris,S/P MVR (mitral valve [...] as of this encounter (statuses as of 11/21/2023) Active Problems Problem Noted Date Diagnosed Date [...] 07/20/2017 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 0 10/03/2016 Overview: ICD-10 update of inactive term S/P MVR (mitral valve replacement) 09/28/2016 Overview: Bioprosthetic 29mm epic valve Coronary artery disease invo lving anvik coronary artery of anvik heart without angina pectoris 09/12/2016 Overview: 80% [...] of hypercalcemia on supplemnts, to be off adnrés cium supp 09/30/2003 Family history of colon cancer 10/31/2002 Dyslipidemia, goal LDL below 70 Asymmetric septal hypertrophy Type 2 diabetes mellitus wit h hemoglobin A1c goal of less than 7.5% Overview: ICD-10 update of inactive term Status post insertion of drug eluting coronary a rtery stent documented as of this encounter (statuses as of 11/21/2023) Resolved Problems Problem Noted Date Diagnosed Date [...] as of this encounter (statuses as of 11/21/2023) Immunizations Name Administration Dates Next Due COVID-19 mRNA, LNP-s, No Pre serve, 2-Dose Series (navigaya) 08/27/2021,09/22/2020,09/01/2020 Hepatitis B, 20+ yrs 09/12/2016 Pneumococcal [...] of this encounter Progress Notes * Sophie Ramirez, cloth printer - 11/21/2023 8:16 AM EDT Contacts Type Contact Phone/Fax 11/21/2023 08:15 AM EDT Phone (Outgoing) FRANCIS VILLAFUERTE (Emergency Contact) [phone] Subjective Patient Findings Negatives: Signs/symptoms of bleeding, Change in health, Change in activity, Upcoming invasive procedure, Missed doses, Extra doses, Change in medications, Change in diet/appetite, Bruising Advised patient to contact Anticoagulation Clinic if any unusual bruising or bleeding, recent illness, changes in medication, or questions/concerns. PT/INR results, Coumadin dose instructions, and next PT/INR date communicated as noted by Pharmacist: Yes HEMA EVANS 11/21/2023, 8:16 AM * Nancy Medrano RPh - 11/21/2023 8:03 AM EDT Coumadin Clinic (region specific) Objective Current Warfarin Dose As of 11/21/2023 Warfarin maintenance plan: 5 mg (5 mg x 1) every Sun, Tue, Darya; 2.5 mg (5 mg x 0.5) all other days INR Result As of 11/21/2023 INR goal: 2.0-3.0 INR used for dosin.8 (11/20/2023) Assessment & Plan Warfarin Plan As of 11/21/2023 Full warfarin instructions: 5 mg every Sun, Tue, Darya; 2.5 mg all other days No change documented: Nancy Medrano RPh Next INR check: 12/04/2023 Repeat PT/INR in 2 week(s) Weekly dose: not changed Additional Dosing Information: Description L([facility]) Tech to contact patient with dose instructions as noted. Nancy Medrano RPh 11/21/2023, 8:04 AM documented in this encounter Plan of Treatment Upcoming Encounters Date Type Department Care Team ([facility] st Contact Info) Description 12/04/2023 7:00 AM EDT Laboratory Lab Mobile Phlebotomy [facility] [address] [place] [address] [facility], [facility] Mobile Home Draw [address] [place] [address] 12/05/2023 6:00 AM EDT Anticoagulation Pharmacy Call Center [phone] [place] [address] [facility] 58 60 [facility] [place] [address] 03/13/2024 10:00 AM EDT Office Visit General Internal Medicine State [place] 200 [facility] [place] [address] Magy Segal MD 200 [facility] [place] [address] Scheduled Procedures Name Priority Associated Diagnoses Date/Ti [...] Screening 08/02/2024 08/02/2023 CKD HGB USE SMARTSET 09377 08/07/202408/07, 2023, 06/12/2023, Additional history exists CKD PHOS USE SMARTSET 03213 08/07/202407/17, 2023, 05/21/2023, Additional history exists DTaP,Tdap,and [...] encounter Medical Devices Implanted Type Area Continuous Conveyor Screen Drier Device Identifier Shelf Expiration Date Model / Serial / Lot Marker Coronary [facility] - [id number] Implanted:Qty : 2 on 09/22/2016 [place] [facility] [place]: Aorta [employer] 06/14/2019 [facility] / / [id number] Atriclip 35mm [id number] - [id number] Implanted:Qty : 1 on 09/22/2016 [place] [facility] [place]: Heart ATRICURE 06/15/2018 [id number] / / [id number] Valve Heart Mitral Epic 27mm - [id number] - [id number] Implanted:Qty : 1 on 09/22/2016 [place] [facility] [place]/A: Heart ST TAMIKO : CARDIOVASCULAR 04/26/2020 [id number]-4 0 / [id number] / Sut Steel 6 M654g - [id number] Implanted:Qty : 4 on 09/22/2016 by Dejon [place] [facility] [place]A: Sternum JNJ : [employer] 06/14/2021 M654G / / [id number] documented as of this encounter Visit Diagnoses Diagnosis S/P MVR (mitral valve replacement)- Primary Heart valve replaced by other means Bioprosthetic mitral valve replacement, current hospitalization Heart valve replaced by other means documented in this encounter Advance Directives Documents on File Type Date Recorded Patient Sieve Repairer Expl anation Advance Directives and Living Will 12/28/2009 ADVANCE DIRECTIVE / LIVING WILL POWER OF GETTERING FILAMENT MACHINE OPERATOR Latest Code Status on File Code Status Date Activated Date Inactivated Comments Full Code 09/22/2016 12:20 PM 09/28/2016 3:42 PM This order reflects the patients wishes and were consensually agreed upon. Question Answer Comments Discussion of Advance Directives occurred with: Patient Does the patient have a Living Will? No Does the patient have Health Care Power of Biology Professor? No Healthcare Agents on File Name Relationship Healthcare Agent Relationshi p Communication Francis Elisabet Adult Child First Alternate Health Care Agent (per Health Care Power of Biology Professor document) Care Teams Bond Clerk Relationship Specialty Start Date End Date Magy Segal MD 200 [facility] [place] [address] PCP - General Internal Medicine 08/08/19 documented as of this encounter
--- OUTSIDE RECORDS SUMMARY | 2024-04-02 09:24 | External Medical Summary ---
Author Name Unknown Address Unknown Organization [facility] [address] [place] [address] Laboratory Report Ordering Provider Test Date Status DANISHA LOPEZ 12/25/2023 07:33:00 Final Standing order for pt/inr.
Please draw pt/inr every 1 to 4 weeks as requested
Results to [facility] Anticoagulation Clinic

Warfarin Therapy
INR: 2.0-3.0 conventional anticoagulation
INR: 2.5-3.5 high intensity anticoagulation Observation Date Value Abnormality Reference (Units ) Status PT 12/25/2023 07:33:00 27.0 Above high normal 11 .6-15.2 (seconds) Final INR 12/25/2023 07:33:00 2.5 Above high normal 0. 8-1.2 Final Performing Location [facility] [address] [place] [address]
--- OUTSIDE RECORDS SUMMARY | 2024-04-02 09:25 | External Medical Summary | Summary of Care ---
Author Name Unknown Organization [facility] Address [address] [facility] [address] Phone [phone] Care Team Providers Care English Faculty Member Name Role Phone Magy Segal MD Primary Care Provider + Reason for Visit * Reason Comments Dosage Adjustment Via Phone (anticoag Cl inic) Encounter Details Date Type Department Care Team (Latest Contact Info) Description 11/07/2023 6:00 AM EDT Anticoagulation Pharmacy Call Center [phone] [address] [facility] 58 60 [facility] [place] [address] S/P MVR (mitral valve replacement)*; Bioprosthetic mitral valve replacement, current hospitalization Allergies Active Allergy Reactions Criticality Noted Date Comments Haseeb Inhibitors Cough 04/04/2010 documented as of this encounter (statuses as of 11/07/2023) Medications Medication Sig Dispensed Refills Start Date End Date Status aspirin 81 MG chewable tablet Take 1 Tab by mouth daily. 30 Tab 3 09/28/2016 Active OneTouch Delica Lancets 33GIndications:Type 2 diabetes mellitus with hemoglobin A1c goal of less than 7.5% ([facility]) Test blood sugar once daily 100 Each 3 06/15/2020 Active OneTouch Verio In Vitro Strip (Glucose Blood)Indications:T ype 2 diabetes mellitus with hemoglobin A1c goal of less than 7.5% (HCC) Test blood sugar once daily 100 Strip 3 07/21/2020 Active Warfarin Sodium 5 MG Oral Tablet (Jantoven)Indicatio ns:Coronary artery disease involving [place]awnee coronary artery of shawnee heart without angina pectoris,S/P MVR (mitral valve [...] and 2 Tablets before bedtime. 0 Active Fluticasone Propionate 50 MCG/ACT Nasal SuspensionIndicatio ns:Chronic rhinitis Administer 2 Sprays into each nostril at bedtime. 9.9 mL 2 08/07/2023 Active Losartan Potassium 50 MG Oral Tablet [...] TWICE DAILY 180 Tablet 1 09/22/2023 Active documented as of this encounter (statuses as of 11/07/2023) Active Problems Problem Noted Date Diagnosed Date [...] epic valve Coronary artery disease invo lving shawnee coronary artery of shawnee heart without angina pectoris 09/12/2016 Overview: 80% [...] as of this encounter (statuses as of 11/07/2023) Resolved Problems Problem Noted Date Diagnosed Date [...] as of this encounter (statuses as of 11/07/2023) Immunizations Name Administration Dates Next Due COVID-19 mRNA, LNP-s, No Pre serve, 2-Dose Series ([email or web address]) 08/27/2021,09/22/2020,09/01/2020 Hepatitis B, 20+ yrs 09/12/2016 Pneumococcal [...] of this encounter Progress Notes * Shayna Reaves, prune washer - 11/07/2023 8:20 AM EDT Contacts Type Contact Phone/Fax 11/07/2023 08:18 AM EDT Phone (Outgoing) IVETT VILLAFUERTE (Emergency Contact) [phone] Subjective Patient Findings Negatives: Signs/symptoms of bleeding, Change in health, Change in activity, Upcoming invasive procedure, Missed doses, Extra doses, Change in medications, Change in diet/appetite, Bruising Advised patient to contact Anticoagulation Clinic if any unusual bruising or bleeding, recent illness, changes in medication, or questions/concerns. PT/INR results, Coumadin dose instructions, and next PT/INR date communicated as noted by Pharmacist: Yes HEMA JUNE 11/07/2023, 8:20 AM * Nancy Medrano RPh - 11/07/2023 8:02 AM EDT Coumadin Clinic (region specific) Objective Current Warfarin Dose As of 11/07/2023 Warfarin maintenance plan: 5 mg (5 mg x 1) every Sun, Tue, Darya; 2.5 mg (5 mg x 0.5) all other days INR Result As of 11/07/2023 INR goal: 2.0-3.0 INR used for dosin.5 (11/06/2023) Assessment & Plan Warfarin Plan As of 11/07/2023 Full warfarin instructions: 5 mg every Sun, Tue, Darya; 2.5 mg all other days No change documented: Nancy Medrano RPh Next INR check: 11/20/2023 Repeat PT/INR in 2 week(s) Weekly dose: not changed Additional Dosing Information: Description L([facility]) Tech to contact patient with dose instructions as noted. Nancy Medrano RPh 11/07/2023, 8:02 AM documented in this encounter Plan of Treatment Upcoming Encounters Date Type Department Care Team ([facility] st Contact Info) Description 11/20/2023 7:00 AM EDT Laboratory Lab Mobile Phlebotomy [facility] [address] [address] [facility] Mobile Home Draw [address] [place] [address] 11/21/2023 6:00 AM EDT Anticoagulation Pharmacy Call Center WB [phone] [place] [address] [facility] 58 60 [facility] [place] [address] 03/13/2024 10:00 AM EDT Office Visit General Internal Medicine [place] [facility] [place] [address] Magy Segal MD 200 [facility] [place] [address] Scheduled Procedures Name Priority Associated Diagnoses Date/Ti [...] Screening 08/02/2024 08/02/2023 CKD HGB USE SMARTSET 74898 08/07/202408/07, 2023, 06/12/2023, Additional history exists CKD PHOS USE SMARTSET 20913 08/07/202407/17, 2023, 05/21/2023, Additional history exists DTaP,Tdap,and [...] this encounter Medical Devices Implanted Type Area Aircraft Structural Repairer Device Identifier Shelf Expiration Date Model / Serial / Lot Marker Coronary [facility]-Sd - [id number] Implanted:Qty : 2 on 09/22/2016 by Dejon Carlos MD at [place] [facility] [place] N/A: Aorta [employer] 06/14/2019 [facility] / / [id number] Atriclip 35mm [id number] - [id number] Implanted:Qty : 1 on 09/22/2016 by Dejon Carlos MD at OR [facility] [place] N/A: Heart ATRICURE 06/15/2018 [id number] / / [id number] Valve Heart Mitral Epic 27mm - [id number] - [id number] Implanted:Qty : 1 on 09/22/2016 by Dejon Carlos MD at OR [facility] [place] N/A: Heart ST TAMIKO : CARDIOVASCULAR 04/26/2020 [id number] 0 / [id number] / Sut Steel 6 M654g - [id number] Implanted:Qty : 4 on 09/22/2016 by Dejon Carlos MD at OR [facility] [place] N/A: Sternum JNJ : [employer] 06/14/2021 [id number] / / [id number] documented as of this encounter Visit Diagnoses Diagnosis S/P MVR (mitral valve replacement)- Primary Heart valve replaced by other means Bioprosthetic mitral valve replacement, current hospitalization Heart valve replaced by other means documented in this encounter Advance Directives Documents on File Type Date Recorded 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 Question Answer Comments Discussion of Advance Directives occurred with: Patient Does the patient have a Living Will? No Does the patient have Health Care Power of Director Counseling Bureau? No Healthcare Agents on File Name Relationship Healthcare Agent Relationshi p Communication Ivett Elisabet Adult Child First Alternate Health Care Agent (per Health Care Power of Director Counseling Bureau document) Care Teams English Faculty Member Relationship Specialty Start Date End Date Magy Segal MD [address] [place] [address] PCP - General Internal Medicine 08/08/19 documented as of this encounter
--- OUTSIDE RECORDS SUMMARY | 2024-04-02 09:25 | External Medical Summary ---
Author Name Unknown Address Unknown Organization [id number]:[facility] [address] [place] [address] Laboratory Report Ordering Provider Test Date Status DANISHA LOPEZ 10/23/2023 07:12:00 Final Standing order for pt/inr.
Please draw pt/inr every 1 to 4 weeks as requested
Results to [facility] Anticoagulation [facility]

Warfarin Therapy
INR: 2.0-3.0 conventional anticoagulation
INR: 2.5-3.5 high intensity anticoagulation Observation Date Value Abnormality Reference (Units ) Status PT 10/23/2023 07:12:00 28.7 Above high normal 11 .6-15.2 (seconds) Final INR 10/23/2023 07:12:00 2.7 Above high normal 0. 8-1.2 Final Performing Location [facility] [address] [place] [address]
--- OUTSIDE RECORDS SUMMARY | 2024-04-02 09:25 | External Medical Summary | Summary of Care ---
Author Name Unknown Organization [facility] Address [address] [facility] [place] [address] Phone [phone] Care Team Providers Care Study Abroad Coordinator Name Role Phone Magy Segal MD Primary Care Provider + Reason for Visit * Reason Comments Dosage Adjustment Via Phone (anticoag Cl inic) Encounter Details Date Type Department Care Team (Latest Contact Info) Description 10/24/2023 6:00 AM EDT Anticoagulation Pharmacy Call Center [phone] [place] [address] [facility] [address] [facility] [address] S/P MVR (mitral valve replacement)*; Bioprosthetic mitral valve replacement, current hospitalization Allergies Active Allergy Reactions Criticality Noted Date Comments Haseeb Inhibitors Cough 04/04/2010 documented as of this encounter (statuses as of 10/24/2023) Medications Medication Sig Dispensed Refills Start Date [...] Oral Tablet (Jantoven)Indicatio ns:Coronary artery disease involving [place] coronary artery of [place] heart without angina pectoris,S/P MVR (mitral valve [...] as of this encounter (statuses as of 10/24/2023) Active Problems Problem Noted Date Diagnosed Date [...] 07/20/2017 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 current use of 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 therapy 0 10/03/2016 Overview: ICD-10 update of inactive term S/P MVR (mitral valve replacement) 09/28/2016 Overview: Bioprosthetic 29mm epic valve Coronary artery disease invo lving [place] coronary artery of [place] heart without angina pectoris 09/12/2016 Overview: 80% [...] as of this encounter (statuses as of 10/24/2023) Resolved Problems Problem Noted Date Diagnosed Date [...] as of this encounter (statuses as of 10/24/2023) Immunizations Name Administration Dates Next Due COVID-19 mRNA, LNP-s, No Pre serve, 2-Dose Series ([employer]) 08/27/2021,09/22/2020,09/01/2020 Hepatitis B, 20+ yrs 09/12/2016 Pneumococcal [...] as of this encounter Progress Notes * Brenton Marte, counselor aid - 10/24/2023 8:35 AM EDT Contacts Type Contact Phone/Fax 10/24/2023 08:34 AM EDT Phone (Outgoing) IVETT VILLAFUERTE (Emergency Contact) [phone] spoke to Ivett Subjective Patient Findings Negatives: [...] date communicated as noted by Pharmacist: Yes BRENTON MARTE counselor aid 10/24/2023, 8:35 AM * Nancy Medrano RPh - 10/24/2023 8:13 AM EDT Coumadin Clinic (region specific) Objective Current Warfarin Dose As of 10/24/2023 Warfarin maintenance plan: 5 mg (5 mg x 1) every Sun, Tue, Darya; 2.5 mg (5 mg x 0.5) all other days INR Result As of 10/24/2023 INR goal: 2.0-3.0 INR used for dosin.7 (10/23/2023) Assessment & Plan Warfarin Plan As of 10/24/2023 Full warfarin instructions: 5 mg every Sun, Tue, Darya; 2.5 mg all other days No change documented: Nancy Medrano RPh Next INR check: 11/06/2023 Repeat PT/INR in 2 week(s) Weekly dose: not changed Additional Dosing Information: Description [facility] Tech to contact patient with dose instructions as noted. Nancy Medrano RPh 10/24/2023, 8:15 AM documented in this encounter Plan of Treatment Upcoming Encounters Date Type Department Care Team (Late st Contact Info) Description 03/13/2024 10:00 AM EDT Office Visit General Internal Medicine State Jesus White [address] [place] [address] [address] Magy Segal MD [address] [place] [address] Scheduled Procedures Name Priority Associated Diagnoses Date/Ti [...] Screening 08/02/2024 08/02/2023 CKD HGB USE SMARTSET 75854 08/07/202408/07, 2023, 06/12/2023, Additional history exists CKD PHOS USE SMARTSET 47996 08/07/202407/17, 2023, 05/21/2023, Additional history exists DTaP,Tdap,and [...] this encounter Medical Devices Implanted Type Area Neon Glass Bender Device Identifier Shelf Expiration Date Model / Serial / Lot Marker Coronary [facility] - [id number] Implanted:Qty : 2 on 09/22/2016 by Dejon Carlos MD at OR [facility] [place] N/A: Aorta [employer] 06/14/2019 AM-SD / / [id number] Atriclip 35mm [id number] - [id number] Implanted:Qty : 1 on 09/22/2016 by Dejon Carlos MD at OR [facility] [place] N/A: Heart ATRICURE 06/15/2018 [id number] / / [id number] Valve Heart Mitral Epic 27mm - [id number] - [id number] Implanted:Qty : 1 on 09/22/2016 by Dejon Carlos MD at OR [facility] [place] N/A: Heart ST TAMIKO : CARDIOVASCULAR 04/26/2020 [id number] 0 / [id number] / Sut Steel 6 M654g - [id number] Implanted:Qty : 4 on 09/22/2016 by Dejon Carlos MD at OR [facility] [place] N/A: Sternum JNJ : [employer] 06/14/2021 M654G / / [id number] documented as of this encounter Visit Diagnoses Diagnosis S/P MVR (mitral valve replacement)- Primary Heart valve replaced by other means Bioprosthetic mitral valve replacement, current hospitalization Heart valve replaced by other means documented in this encounter Advance Directives Documents on File Type Date Recorded 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 Question Answer Comments Discussion of Advance Directives occurred with: Patient Does the patient have a Living Will? No Does the patient have Health Care Power of Mapping Specialist? No Healthcare Agents on File Name Relationship Healthcare Agent Relationshi p Communication Ivett Villafuerte Adult Child First Alternate Health Care Agent (per Health Care Power of Mapping Specialist document) Care Teams Study Abroad Coordinator Relationship Specialty Start Date End Date Magy Segal MD [address] [place] [address] PCP - General Internal Medicine 08/08/19 documented as of this encounter
--- OUTSIDE RECORDS SUMMARY | 2024-04-02 09:25 | External Medical Summary | Summary of Care ---
Author Name Unknown Organization [facility] Address [address] [place] [address] Phone [phone] Care Team Providers Care Bank Manager Name Role Phone Magy Segal MD Primary Care Provider + Reason for Visit * Reason Onset Date Comments Hospital Follow-Up 2023 Encounter Details Date Type Department Care Team (Late st Contact Info) Description 2023 Telephone General Internal Medicine [facility] 200 [facility] [place] [address] Magy Segal MD 200 [facility] [place] [address] Hospital Follow-Up Allergies Active Allergy Reactions Criticality Noted Date Comments Haseeb Inhibitors Cough 04/04/2010 documented as of this encounter (statuses as of 10/31/2023) Medications Medication Sig Dispensed Refills Start Date End Date Status aspirin 81 MG chewable tablet Take 1 Tab by mouth daily. 30 Tab 3 09/28/2016 Active OneTouch Deleleni Lancets 33GIndications:Typ e 2 diabetes mellitus with hemoglobin A1c goal of less than 7.5% ([facility]) Test blood sugar once daily 100 Each 3 06/15/2020 Active OneTouch Verio In Vitro Strip (Glucose Blood)Indications: Type 2 diabetes mellitus with hemoglobin A1c goal of less than 7.5% ([facility]) Test blood sugar once daily 100 Strip 3 07/21/2020 Active Warfarin Sodium 5 MG Oral Tablet (Jantoven)Indicati ons:Coronary artery disease involving [place] coronary artery of [place] heart without angina pectoris,S/P MVR (mitral valve [...] as of this encounter (statuses as of 10/31/2023) Active Problems Problem Noted Date Diagnosed Date [...] (NSTEMI) 07/20/2017 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 senior living current use of 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 therapy 0 10/03/2016 Overview: ICD-10 update of inactive term S/P MVR (mitral valve replacement) 09/28/2016 Overview: Bioprosthetic 29mm epic valve Coronary artery disease invo lving [place] coronary artery of [place] heart without angina pectoris 09/12/2016 Overview: 80% [...] as of this encounter (statuses as of 10/31/2023) Resolved Problems Problem Noted Date Diagnosed Date [...] as of this encounter (statuses as of 10/31/2023) Immunizations Name Administration Dates Next Due COVID-19 mRNA, LNP-s, No Pre serve, 2-Dose Series ([employer]) 08/27/2021,09/22/2020,09/01/2020 Hepatitis B, 20+ yrs 09/12/2016 Pneumococcal [...] encounter Miscellaneous Notes * Telephone Encounter - Donavan Jason RN - 2023 1:04 PM EST Patient discharged from [facility] 08/01/23 after treatment for complicated UTI. Upon admission (07/28) INRwas 5.4. Coumadin held, resumed 07/30/23. INR 08/01 is 2.1. Please follow up with the patient to ensure INR is at goal. Thank you documented in this encounter Plan of Treatment Upcoming Encounters Date Type Department Care Team (Late st Contact Info) Description 11/06/2023 7:00 AM EDT Laboratory Lab Mobile Phlebotomy [facility] [address] [place] [address] [facility], Gml Mobile Home Draw [address] [address] 11/07/2023 6:00 AM EDT Anticoagulation Pharmacy Call Center [phone] [place] [address] [facility] 58 60 [facility] [place] [address] 03/13/2024 10:00 AM EDT Office Visit General Internal Medicine State [place] 200 [facility] [place] [address] Magy Segal MD 200 [facility] [place] [address] Scheduled Procedures Name Priority Associated Diagnoses Date/Ti [...] Screening 08/02/2024 08/02/2023 CKD HGB USE SMARTSET 21895 08/07/202408/07, 2023, 06/12/2023, Additional history exists CKD PHOS USE SMARTSET 06219 08/07/202407/174, 2023, 05/21/2023, Additional history exists DTaP,Tdap,and Td [...] this encounter Medical Devices Implanted Type Area Compacting Machine Operator/Tender Device Identifier Shelf Expiration Date Model / Serial / Lot Marker Coronary Am-Sd - [id number] Implanted:Qty : 2 on 09/22/2016 by Dejon Carlos MD at [place] [facility] [place] N/A: Aorta [employer] 06/14/2019 [facility] / / [id number] Atriclip 35mm [id number] - [id number] Implanted:Qty : 1 on 09/22/2016 by Dejon Carlos MD at OR [facility] [place] N/A: Heart ATRICURE 06/15/2018 [id number] / / [id number] Valve Heart Mitral Epic 27mm - [id number] - [id number] Implanted:Qty : 1 on 09/22/2016 by Dejon Carlos MD at OR [facility] [place] N/A: Heart ST TAMIKO : CARDIOVASCULAR 04/26/2020 [id number] 0 / [id number] / Sut Steel 6 M654g - [id number] Implanted:Qty : 4 on 09/22/2016 by Dejon Carlos MD at OR [facility] [place] N/A: Sternum JNJ : [employer] 06/14/2021 M654G / / [id number] documented as of this encounter Advance Directives Documents on File Type Date Recorded Patient Parliamentary Counsel Expl anation Advance Directives and Living Will 12/28/2009 ADVANCE DIRECTIVE / LIVING WILL POWER OF CHIEF DISPATCHER SERVICE Latest Code Status on File Code Status Date Activated Date Inactivated Comments Full Code 09/22/2016 12:20 PM 09/28/2016 3:42 PM This order reflects the patients wishes and were consensually agreed upon. Question Answer Comments Discussion of Advance Directives occurred with: Patient Does the patient have a Living Will? No Does the patient have Health Care Power of Computer Assistant? No Healthcare Agents on File Name Relationship Healthcare Agent Relationshi p Communication Ivett Elisabet Adult Child First Alternate Health Care Agent (per Health Care Power of Computer Assistant document) Care Teams Bank Manager Relationship Specialty Start Date End Date Magy Segal MD [address] [place] [address], [place] [address] PCP - General Internal Medicine 08/08/19 documented as of this encounter
--- OUTSIDE RECORDS SUMMARY | 2024-04-02 09:25 | External Medical Summary ---
Author Name Unknown Address Unknown Organization K01:[facility] [place] [address] [place] [address] Laboratory Report Ordering Provider Test Date Status JESSICABAKARIBETTIE 11/06/2023 07:32:00 Final Standing order for pt/inr.
Please draw pt/inr every 1 to 4 weeks as requested
Results to [facility] Anticoagulation Clinic

Warfarin Therapy
INR: 2.0-3.0 conventional anticoagulation
INR: 2.5-3.5 high intensity anticoagulation Observation Date Value Abnormality Reference (Units ) Status PT 11/06/2023 07:32:00 27.6 Above high normal 11 .6-15.2 (seconds) Final INR 11/06/2023 07:32:00 2.5 Above high normal 0. 8-1.2 Final Performing Location [facility] [place] [address] [place] [address]
--- OUTSIDE RECORDS SUMMARY | 2024-04-02 09:25 | External Medical Summary | Summary of Care ---
Author Name Unknown Organization [facility] Address [address] [place] [address] Phone [phone] Care Team Providers Care Sales Representative Groceries Name Role Phone Magy Segal MD Primary Care Provider + Reason for Visit * Reason Onset Date Comments case management 10/18/2023 [facility] Encounter Details Date Type Department Care Team (Late st Contact Info) Description 10/18/2023 Telephone Care Coordination and Integration [address], [place] [phone] Jacki Mota RN [address], [place] [phone] case management ([facility]) Allergies Active Allergy Reactions Criticality Noted Date Comments Haseeb Inhibitors Cough 04/04/2010 documented as of this encounter (statuses as of 10/18/2023) Medications Medication Sig Dispensed Refills Start Date [...] [facility]) Test blood sugar once daily 100 Strip 3 07/21/2020 Active Warfarin Sodium 5 MG Oral Tablet (Jantoven)Indicatio ns:Coronary artery disease involving [place] coronary artery of [...] as of this encounter (statuses as of 10/18/2023) Active Problems Problem Noted Date Diagnosed Date [...] as of this encounter (statuses as of 10/18/2023) Resolved Problems Problem Noted Date Diagnosed Date [...] as of this encounter (statuses as of 10/18/2023) Immunizations Name Administration Dates Next Due COVID-19 mRNA, LNP-s, No Pre serve, 2-Dose Series (Linquet) 08/27/2021,09/22/2020,09/01/2020 Hepatitis B, 20+ yrs 09/12/2016 Pneumococcal [...] encounter Miscellaneous Notes * Telephone Encounter - Jacki Mota RN - 10/18/2023 9:03 AM EDT Please discharge the patient from [facility] ([facility]). Device(s)/IVR to be discontinued: [facility] [place] IVR due to COMPLETION NOT IN USE. Thank you. documented in this encounter Plan of Treatment Upcoming Encounters Date Type Department Care Team (Late st Contact Info) Description 10/22/2023 8:50 AM EDT Laboratory Lab Mobile Phlebotomy [facility] [address] [place] [address] [facility], [facility] Mobile Home Draw [address] [place] [address] 10/23/2023 6:00 AM EDT Anticoagulation Pharmacy Call Center [address] [place] [address] [facility], [facility] [address] [place] [address] 03/13/2024 10:00 AM EDT Office Visit General Internal Medicine [facility] [address] [place] [address] Magy Segal MD [address] [facility] [place] [address] Scheduled Procedures Name Priority Associated Diagnoses Date/Ti [...] Screening 08/02/2024 08/02/2023 CKD HGB USE SMARTSET 84695 08/07/202408/07, 2023, 06/12/2023, Additional history exists CKD PHOS USE SMARTSET 74504 08/07/202407/17, 2023, 05/21/2023, Additional history exists DTaP,Tdap,and [...] this encounter Medical Devices Implanted Type Area Induction Machine Operator Device Identifier Shelf Expiration Date Model / Serial / Lot Marker Coronary [facility] - [id number] Implanted:Qty : 2 on 09/22/2016 by Dejon Carlos MD at OR [facility] N/A: Aorta [employer] 06/14/2019 [facility] / / [id number] Atriclip 35mm [id number] - [id number] Implanted:Qty : 1 on 09/22/2016 by Dejon Carlos MD at OR [facility] N/A: Heart [employer] 06/15/2018 [id number] / / [id number] Valve Heart Mitral Epic 27mm - [id number] - [id number] Implanted:Qty : 1 on 09/22/2016 by Dejon Carlos MD at [place] [facility] N/A: Heart ST [employer] : CARDIOVASCULAR 04/26/2020 [id number] / [id number] / Sut Steel 6 M654g - [id number] Implanted:Qty : 4 on 09/22/2016 by Dejon Carlos MD at OR [facility] N/A: Sternum [place] : [employer] 06/14/2021 [id number] / / [id number] documented as of this encounter Advance Directives Documents on File Type Date Recorded Patient Facility Attendant Expl anation Advance Directives and Living Will 12/28/2009 ADVANCE DIRECTIVE / LIVING WILL POWER OF OIL AGENT Latest Code Status on File Code Status Date Activated Date Inactivated Comments Full Code 09/22/2016 12:20 PM 09/28/2016 3:42 PM This order reflects the patients wishes and were consensually agreed upon. Question Answer Comments Discussion of Advance Directives occurred with: Patient Does the patient have a Living Will? No Does the patient have Health Care Power of Keeper Head? No Healthcare Agents on File Name Relationship Healthcare Agent Relationshi p Communication Ivett [place] Adult Child First Alternate Health Care Agent (per Health Care Power of Keeper Head document) Care Teams Sales Representative Groceries Relationship Specialty Start Date End Date Magy Segal MD [address] [facility] [place] [address] PCP - General Internal Medicine 08/08/19 documented as of this encounter
[2024-04-02] MEDS: ASPIRIN 81 MG ECTAB PO SCH (10:08)
[2024-04-02] MEDS: LOSARTAN POTASSIUM 50 MG TAB PO SCH (10:09)
[2024-04-02] MEDS: FAMOTIDINE 20 MG TAB PO SCH (10:09)
[2024-04-02] MEDS: METOPROLOL TARTRATE 25 MG TAB PO SCH (10:09)
[2024-04-02] MEDS: FLUTICASONE PROPIONATE NA SPR 16 GM BTL SCH (10:09)
[2024-04-02] MEDS: ROSUVASTATIN CALCIUM 20 MG TAB PO SCH (10:10)
[2024-04-02] MEDS: INSULIN ASPART PER UNIT CHARGE SC SCH (10:20)
[2024-04-02] MEDS ORDERED: WARFARIN SOD 2.5 MG TAB PO SCH (16:00)
--- NOTE | 2024-04-02 16:13 | Hospitalist Progress Note ---
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 Patient having cough for some time. No fevers. Yesterday she slid out of the chair and could not get up and EMS was called. When went to check the patient she was lying on the floor in the ER room. With head down. No obvious injury seen. Staff helped to get her back in the bed. She was able to move her extremities okay. Currently she is oriented to name only. But able to answer simple questions. Denies any headache. States vision is okay. States she has cold. Has cough. Denies chest pain or shortness of breath. Denies nausea. Denies abdominal pain. As per daughter patient was complaining of having cold symptoms. No nausea or vomiting or diarrhea as per daughter. Last couple of days she was not eating much and was weak. Usually ambulates without support. Currently seems comfortable lying in the bed and hemodynamics are okay.Notified daughter about fall. Acute metabolic encephalopathy--POA Likely due to UTI, COVID S/P fall No obvious injury seen --CT Head:No acute intracranial findings. Old left basal ganglia infarcts. No calvarial fractures. Fall precautions PT OT as able Mental status seem to be back to baseline Reorient frequently to minimize delirium COVID 19 Infection Check procalcitonin, CRP --CXR:No acute cardiopulmonary findings. No change in appearance of the chest. Isolation precautions Saturating well on room air Supportive care Acute UTI Urine cultures pending Received gentle IV fluids Empirically on Rocephin History of CAD s/p CABG s/p stents Bioprosthetic mitral valve replacement Continue aspirin, statin and beta-paige H/O Embolic CVA Recurrent CVAs On aspirin Coumadin and statin Subtherapeutic INR INR1.3 today Monitor INR Will increase Coumadin to 5 mg daily Hypertension Continue metoprolol and losartan Monitor BP Hyperlipidemia On statin History of PSVT Continue metoprolol DM II HbA1c 6.7 Hold p.o. meds Continue insulin sliding scale while hospitalized Monitor blood glucose levels GA on CKD stage III Presented creatinine 1.2 Monitor renal function Continue gentle IV fluids DVT Px: Coumadin CODE STATUS full code Disposition PT OT prior to discharge Admission and Anticipated Discharge Date Admission Date: April 02, 2024 Subjective Patient is seen and examined at bedside States feeling better today Denies any chest pain, dyspnea, nausea, vomiting, abdominal pain Mental status seem to be much improved Family at bedside Saturating well on room air No other complaints Review of Systems Review of Systems: All systems reviewed & are unremarkable except as noted in Subjective Physical Exam Physical Exam: Physical Exam: Vitals signs as noted above General Appearance:Moderately built and nourished, no apparent distress Head: normocephalic, Atraumatic Eyes: normal inspection, EOMI Neck: supple, Trachea midline Respiratory/Chest: Normal breath sounds, CTA, No accessory muscle use Cardiovascular: S1, S2, No murmur Abdomen/GI:Soft, Non tender, Bowel sounds present Extremities/Musculoskeletal:normal inspection, Trace edema Neurologic/Psych:AAOX2, grossly no focal neurological deficits Skin: normal color, warm Results & Data Results & Data Vital Signs (Past 12 Hours) Vital Signs Temp Pulse Pulse Resp BP Pulse Ox O2 Del Method 04/02/24 15:22 36.8 C 73 20 152/84 H 97 Room Air 04/02/24 12:10 36.9 C 71 19 160/79 H 97 Room Air 04/02/24 07:27 74 04/02/24 07:14 36.4 C L 72 18 146/73 H 97 Room Air 04/02/24 05:20 Room Air 04/02/24 05:20 37.0 C 80 18 164/81 H 97 Room Air 04/02/24 05:00 80 04/02/24 04:54 37.0 C 80 18 164/81 H 97 Room Air 04/02/24 04:36 Room Air Laboratory Results Short CBC 04/01/24 04/02/24 Range/Units 20:41 06:51 WBC 11.90 H 10.89 H (4.8-10.8) K/ul Hgb 14.3 12.6 (12.0-16.0) g/dl Hct 42.1 37.8 (37.0-47.0) % Plt Count 205 168 (130-400) K/uL BMP 04/01/24 04/02/24 20:41 06:51 Sodium 134 L 136 Potassium 4.0 4.2 Chloride 102 104 Carbon Dioxide 23 23 BUN 21 17 Creatinine 1.24 H 0.97 Glucose 180 H 119 H Calcium 9.2 8.6 Liver Function 04/01/24 Range/Units 20:41 Total Bilirubin 0.5 (0.2-1.0) mg/dl AST 18 (13-39) U/L ALT 20 (7-52) U/L Alkaline Phosphatase 89 (34-104) U/L Albumin 4.3 (3.4-5.0) gm/dl Urine 04/01/24 Range/Units 20:41 Urine Color Yellow Urine Appearance Turbid A (Clear) Urine pH 6.5 (4.5-7.5) Ur Specific [place] 1.015 (1.000-1.030) Urine Protein 1+ H (Negative) Urine Glucose (UA) Negative (Negative)
[2024-04-02] MEDS: WARFARIN SOD 5 MG TAB PO SCH (17:59)
[2024-04-02] MEDS: cefTRIAXone SODIUM 2,000 MG/50 ML BAG IV SCH (21:38)
--- NOTE | 2024-04-03 06:07 | Electrocardiogram Report ---
Test Reason : Blood Pressure : */* mmHG Vent. Rate : 86 BPM Atrial Rate : 86 BPM P-R Int : 212 ms QRS Dur : 102 ms QT Int : 386 ms P-R-T Axes : * -43 98 degrees QTcB Int : 461 ms Sinus rhythm with 1st degree A-V block Left axis deviation Left ventricular hypertrophy with repolarization abnormality ( R in aVL , Inocencio product , Romhilt-E stes ) Abnormal ECG When compared with ECG of 28-Jul-2023 21:43, No significant change was found Confirmed by Nehemias Gutierrez ([id number]) on 04/03/2024 6:07:19 AM Referred By: REFERRED SELF Confirmed By: Nehemias Gutierrez
[2024-04-03 07:19] LABS: Hematocrit (blood only) 39.6 % (37.0-47.0); Hemoglobin 13.2 g/dl (12.0-16.0); Mean Corpuscular Hemoglobin 28.1 pg (25.0-34.0); Mean Corpuscular Hgb Conc 33.3 g/dL (32.0-36.0); Mean Corpuscular Volume 84.3 fL (80.0-100.0); Mean Platelet Volume 10.3 fL (9.4-12.4); Platelet Count 183 K/uL (130-400); RDW Coefficient of Variation 15.6 % (11.5-14.5); RDW Standard Deviation 48.1 fL (36.4-46.3); White Blood Count 10.57 K/ul (4.8-10.8)
[2024-04-03 07:33] LABS: BUN Creatinine Ratio 18.1 (10-20); C Reactive Protein 3.05 mg/dl (0-0.5); Calcium 8.7 mg/dl (8.6-10.3); Creatinine Clr Calc Pharmacy 34.6 ml/min; Est GFR (African American) 57.3 ml/min; Est GFR (Non-African American) 49.4 ml/min; Potassium 4.3 mmol/L (3.5-5.1)
[2024-04-03 07:42] LABS: INR 1.2 (0.9-1.1)
[2024-04-03 08:47] VITALS: RESP 20; TEMP 97.7; O2SAT 92
--- NOTE | 2024-04-03 14:19 | Hospitalist Progress Note ---
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 Patient having cough for some time. No fevers. Yesterday she slid out of the chair and could not get up and EMS was called. When went to check the patient she was lying on the floor in the ER room. With head down. No obvious injury seen. Staff helped to get her back in the bed. She was able to move her extremities okay. Currently she is oriented to name only. But able to answer simple questions. Denies any headache. States vision is okay. States she has cold. Has cough. Denies chest pain or shortness of breath. Denies nausea. Denies abdominal pain. As per daughter patient was complaining of having cold symptoms. No nausea or vomiting or diarrhea as per daughter. Last couple of days she was not eating much and was weak. Usually ambulates without support. Currently seems comfortable lying in the bed and hemodynamics are okay.Notified daughter about fall. Acute metabolic encephalopathy--POA Likely due to COVID S/P fall No obvious injury seen --CT Head:No acute intracranial findings. Old left basal ganglia infarcts. No calvarial fractures. Fall precautions PT OT as able Mental status seem to be back to baseline Reorient frequently to minimize delirium COVID 19 Infection Check procalcitonin, CRP --CXR:No acute cardiopulmonary findings. No change in appearance of the chest. Isolation precautions Saturating well on room air Supportive care Denies any respiratory symptoms currently Ruled out UTI Urine cultures negative Received gentle IV fluids Empirically received Rocephin History of CAD s/p CABG s/p stents Bioprosthetic mitral valve replacement Continue aspirin, statin and beta-paige H/O Embolic CVA Recurrent CVAs On aspirin Coumadin and statin Subtherapeutic INR INR1.2 today Monitor INR Will increase Coumadin to 7.5 mg daily Hypertension Continue metoprolol and losartan Monitor BP Hyperlipidemia On statin History of PSVT Continue metoprolol DM II HbA1c 6.7 Hold p.o. meds Continue insulin sliding scale while hospitalized Monitor blood glucose levels GA on CKD stage III Presented creatinine 1.2 Monitor renal function Continue gentle IV fluids DVT Px: Coumadin CODE STATUS full code Disposition PT OT prior to discharge Admission and Anticipated Discharge Date Admission Date: April 02, 2024 Subjective Patient is seen and examined at bedside No new complaints today Discussed with patient's daughter at bedside Saturating well on room air Denies any cough, chest pain, dyspnea, nausea, vomiting, abdominal pain Review of Systems Review of Systems: All systems reviewed & are unremarkable except as noted in Subjective Physical Exam Physical Exam: Physical Exam: Vitals signs as noted above General Appearance:Moderately built and nourished, no apparent distress Head: normocephalic, Atraumatic Eyes: normal inspection, EOMI Neck: supple, Trachea midline Respiratory/Chest: Normal breath sounds, CTA, No accessory muscle use Cardiovascular: S1, S2, No murmur Abdomen/GI:Soft, Non tender, Bowel sounds present Extremities/Musculoskeletal:normal inspection, Trace edema Neurologic/Psych:AAOX2, grossly no focal neurological deficits Skin: normal color, warm Results & Data Results & Data Vital Signs (Past 12 Hours) Vital Signs Temp Pulse Pulse Resp BP BP Pulse Ox 04/03/24 08:46 36.5 C 69 20 168/79 H 92 04/03/24 08:00 04/03/24 07:06 69 04/03/24 03:00 37 C 68 16 155/75 H 96 O2 Del Method 04/03/24 08:46 Room Air 04/03/24 08:00 Room Air 04/03/24 07:06 04/03/24 03:00 Room Air
--- NOTE | 2024-04-03 14:50 | Discharge Summary ---
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 Patient having cough for some time. No fevers. Yesterday she slid out of the chair and could not g et up and EMS was called. When went to check the patient she was lying on the floor in the ER room. With head down. No obvious injury seen. Staff helped to get her back in the bed. She was able to move her extremities okay. Currently she is oriented to name only. But able to answer simple questions. Denies any headache. States vision is okay. States she has cold. Has cough. Denies ches t pain or shortness of breath. Denies nausea. Denies abdominal pain. As per daughter patient was complaining of having cold symptoms. No nausea or vomiting or diarrhea as per daughter. Last couple of days she was not eating much and was weak. Usually ambulates without support. Currently seems comfortable lying in the bed and hemodynamics are okay. Notified daughter about fall. Past medical history. As mentioned above Past surgical history. Appendectomy. CABG. Colonoscopy. EGD. Elbow surgery following trauma. Right wrist fusion. Tonsillectomy and adenoidectomy. Total abdominal hysterectomy with removal of tubes. Social history. . No smoking. No alcohol use. No drug use. Family history. Niece had breast cancer. Sister had breast cancer. Brother had colon cancer. Brother had heart disorder. Father had heart disorder. Principal Diagnosis COVID-19 infection Acute metabolic encephalopathy Fall Discharge Data Allergies Allergy/AdvReac Type Severity Reaction Status Date / Time YAHIR Inhibitors AdvReac Intermediate Cough Verified 07/28/23 23:02 lisinopril AdvReac Intermediate COUGHING Verified 07/28/23 23:02 Procedures Performed Laboratory Results WBC 10.57 K/ul (4.8-10.8) 04/03/24 06:57 RBC 4.70 M/uL (4.20-5.40) 04/03/24 06:57 Hgb 13.2 g/dl (12.0-16.0) 04/03/24 06:57 Hct 39.6 % (37.0-47.0) 04/03/24 06:57 MCV 84.3 fL (80.0-100.0) 04/03/24 06:57 MCH 28.1 pg (25.0-34.0) 04/03/24 06:57 MCHC 33.3 g/dL (32.0-36.0) 04/03/24 06:57 RDW Std Deviation 48.1 fL (36.4-46.3) H 04/03/24 06:57 RDW Coeff of Matt 15.6 % (11.5-14.5) H 04/03/24 06:57 Plt Count 183 K/uL (130-400) 04/03/24 06:57 MPV 10.3 fL (9.4-12.4) 04/03/24 06:57 Immature Gran % (Auto) 0.4 % 04/02/24 06:51 Neut % (Auto) 60.2 % 04/02/24 06:51 Lymph % (Auto) 19.7 % 04/02/24 06:51 [place] % (Auto) 18.8 % 04/02/24 06:51 Eos % (Auto) 0.2 % 04/02/24 06:51 Baso % (Auto) 0.7 % 04/02/24 06:51 Neut # (Auto) 6.55 K/uL (1.40-6.50) H 04/02/24 06:51 Lymph # (Auto) 2.15 K/uL (1.20-3.40) 04/02/24 06:51 [place] # (Auto) 2.05 K/uL (0.11-0.59) H 04/02/24 06:51 Eos # (Auto) 0.02 K/uL (0.00-0.50) 04/02/24 06:51 Baso # (Auto) 0.08 K/uL (0.00-0.20) 04/02/24 06:51 Immature Gran # (Auto) 0.04 K/uL (0.01-0.20) 04/02/24 06:51 PT 13.0 Seconds (9.0-12.0) H 04/03/24 06:57 INR 1.2 (0.9-1.1) H 04/03/24 06:57 Sodium 135 mmol/L (136-145) L 04/03/24 06:57 Potassium 4.3 mmol/L (3.5-5.1) 04/03/24 06:57 Chloride 105 mmol/L (98-107) 04/03/24 06:57 Carbon Dioxide 23 mmol/L (21-32) 04/03/24 06:57 Anion Gap 7 (3-11) 04/03/24 06:57 BUN 19 mg/dl (6-23) 04/03/24 06:57 Creatinine 1.05 mg/dl (0.6-1.2) 04/03/24 06:57 Est Cr Clr Drug Dosing 34.6 ml/min 04/03/24 06:57 Est GFR ( Amer) 57.3 ml/min 04/03/24 06:57 Est GFR (Non-Af Amer) 49.4 ml/min 04/03/24 06:57 BUN/Creatinine Ratio 18.1 (10-20) 04/03/24 06:57 Glucose 114 mg/dl (70-99(Fasting)) H 04/03/24 06:57 POC Glucose 140 mg/dl (70-99) H 04/03/24 11:35 Estimat Average Glucose 146 mg/dl 04/02/24 06:51 Hemoglobin A1c 6.7 % (4.5-5.6) H 04/02/24 06:51 Calcium 8.7 mg/dl (8.6-10.3) 04/03/24 06:57 Magnesium 2.1 mg/dl (1.7-2.4) 04/02/24 06:51 Total Bilirubin 0.5 mg/dl (0.2-1.0) 04/01/24 20:41 AST 18 U/L (13-39) 04/01/24 20:41 ALT 20 U/L (7-52) 04/01/24 20:41 Alkaline Phosphatase 89 U/L (34-104) 04/01/24 20:41 C-Reactive Protein 3.05 mg/dl (0-0.5) H 04/03/24 06:57 Total Protein 7.6 gm/dl (6.0-8.3) 04/01/24 20:41 Albumin 4.3 gm/dl (3.4-5.0) 04/01/24 20:41 Globulin 3.3 gm/dl (2.5-4.0) 04/01/24 20:41 Albumin/Globulin Ratio 1.3 (0.9-2) 04/01/24 20:41 Procalcitonin 0.04 ng/ml (0-0.5) 04/03/24 06:57 TSH 1.682 uIu/ml (0.300-4.500) 04/01/24 20:41 Urine Color Yellow 04/01/24 20:41 Urine Appearance Turbid (Clear) A 04/01/24 20:41 Urine pH 6.5 (4.5-7.5) 04/01/24 20:41 Ur Specific [place] 1.015 (1.000-1.030) 04/01/24 20:41 Urine Protein 1+ (Negative) H 04/01/24 20:41 Urine Glucose (UA) Negative (Negative) 04/01/24 20:41 Urine Ketones Negative (Negative) 04/01/24 20:41 Urine Blood 1+ (Negative) H 04/01/24 20:41 Urine Nitrite Negative (Negative) 04/01/24 20:41 Urine Bilirubin Negative (Negative) 04/01/24 20:41 Urine Urobilinogen Negative (Negative) 04/01/24 20:41 Ur Leukocyte Esterase 3+ (Negative) H 04/01/24 20:41 Urine WBC (Auto) >50 /hpf (0-5) H 04/01/24 20:41 Urine RBC (Auto) >20 /hpf (0-2) H 04/01/24 20:41 U Hyaline Cast (Auto) 3-5 /lpf (0-2) H 04/01/24 20:41 U Epithel Cells (Auto) 0-2 /hpf (0-2) 04/01/24 20:41 Urine Bacteria (Auto) 4+ (None Seen) H 04/01/24 20:41 Adenovirus (PCR) Not Detected (NotDetected) 04/01/24 22:10 B. pertussis DNA (PCR) Not Detected (NotDetected) 04/01/24 22:10 B.parapertussis DNA PCR Not Detected (NotDetected) 04/01/24 22:10 C. pneumoniae DNA (PCR) Not Detected (NotDetected) 04/01/24 22:10 Coronavirus OC43 (PCR) Not Detected (NotDetected) 04/01/24 22:10 Coronavirus HKU1 (PCR) Not Detected (NotDetected) 04/01/24 22:10 Coronavirus 229E (PCR) Not Detected (NotDetected) 04/01/24 22:10 SARS-CoV-2 (PCR) DETECTED (NotDetected) A 04/01/24 22:10 Coronavirus NL63 (PCR) Not Detected (NotDetected) 04/01/24 22:10 Human Metapneumovir PCR Not Detected (NotDetected) 04/01/24 22:10 Influenza Type A (PCR) Not Detected (NotDetected) 04/01/24 22:10 Influenza Type B (PCR) Not Detected (NotDetected) 04/01/24 22:10 M. pneumoniae (PCR) Not Detected (NotDetected) 04/01/24 22:10 Parainfluenza 1 (PCR) Not Detected (NotDetected) 04/01/24 22:10 Parainfluenza 2 (PCR) Not Detected (NotDetected) 04/01/24 22:10 Parainfluenza 3 (PCR) Not Detected (NotDetected) 04/01/24 22:10 Parainfluenza 4 (PCR) Not Detected (NotDetected) 04/01/24 22:10 RSV (PCR) Not Detected (NotDetected) 04/01/24 22:10 Entero/Rhino (PCR) Not Detected (NotDetected) 04/01/24 22:10 Impressions Chest X-Ray 04/01/24 21:52 XR chest 1V portable CLINICAL HISTORY: flu like symptoms COMPARISON STUDY: Chest radiograph July 28, 2023. FINDINGS: Median sternotomy wires and a left atrial appendage occluder device. Mild cardiomegaly is unchanged. Pulmonary vascularity is normal. No consolidation to suggest pneumonia. Calcified left lung densities are unchanged and benign. Linear left basilar densities represent atelectasis. IMPRESSION: No acute cardiopulmonary findings. No change in appearance of the chest. ACT 112: Negative or not required by law. Electronically signed by: Celso Grady M.D. 04/02/2024 6:[address] 04/02/24 04:54 CT OF THE HEAD WITHOUT CONTRAST CLINICAL HISTORY: fall, confusion COMPARISON STUDY: MRI of the brain May 11, 2020. Head CT May 11, 2020. CTA of the head May 12, 2020. CT DOSE: 625.8 mGy.cm TECHNIQUE: Helical axial images of the head were obtained without IV contrast. Automated exposure control was utilized for the study. A dose lowering technique was utilized adhering to the principles of ALARA. FINDINGS: No acute intracranial hemorrhage is present. Mild asymmetric dilatation of the left lateral ventricle is due to old infarcts within the left basal ganglia. White matter hypodensity suggests small vessel disease. Old left basal ganglia infarcts are noted. There are no findings to suggest acute dural sinus thrombosis or acute territorial infarct. Several old lacunar infarcts within the right cerebellar hemisphere are unchanged. There are no calvarial fractures. Is mild sinus mucosal thickening. IMPRESSION: 1. No acute intracranial findings. 2. Old left basal ganglia infarcts. 3. No calvarial fractures. ACT 112: Negative or not required by law. Electronically signed by: Celso Grady M.D. 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 Patient having cough for some time. No fevers. Yesterday she slid out of the chair and could not get up and EMS was called. When went to check the patient she was lying on the floor in the ER room. With head down. No obvious injury seen. Staff helped to get her back in the bed. She was able to move her extremities okay. Currently she is oriented to name only. But able to answer simple questions. Denies any headache. States vision is okay. States she has cold. Has cough. Denies chest pain or shortness of breath. Denies nausea. Denies abdominal pain. As per daughter patient was complaining of having cold symptoms. No nausea or vomiting or diarrhea as per daughter. Last couple of days she was not eating much and was weak. Usually ambulates without support. Currently seems comfortable lying in the bed and hemodynamics are okay.Notified daughter about fall. Acute metabolic encephalopathy--POA Likely due to COVID S/P fall No obvious injury seen --CT Head:No acute intracranial findings. Old left basal ganglia infarcts. No calvarial fractures. Fall precautions PT OT as able Mental status seem to be back to baseline Reorient frequently to minimize delirium COVID 19 Infection Check procalcitonin, CRP --CXR:No acute cardiopulmonary findings. No change in appearance of the chest. Isolation precautions Saturating well on room air Supportive care Denies any respiratory symptoms currently Ruled out UTI Urine cultures negative Received gentle IV fluids Empirically received Rocephin History of CAD s/p CABG s/p stents Bioprosthetic mitral valve replacement Continue aspirin, statin and beta-paige H/O Embolic CVA Recurrent CVAs On aspirin Coumadin and statin Subtherapeutic INR INR1.2 today Monitor INR Will increase Coumadin to 7.5 mg daily Hypertension Continue metoprolol and losartan Monitor BP Hyperlipidemia On statin History of PSVT Continue metoprolol DM II HbA1c 6.7 Hold p.o. meds Continue insulin sliding scale while hospitalized Monitor blood glucose levels GA on CKD stage III Presented creatinine 1.2 Monitor renal function Continue gentle IV fluids DVT Px: Coumadin CODE STATUS full code Disposition PT OT prior to discharge Total Time Total Time Spent Total Time Spent (In Minutes): 46 minutes Discharge Plan Discharge Items Patient Disposition: Home - Home Health Services Reason For Visit: WEAKNESS, UTI, COVID Discharge Diagnosis: COVID-19 infection Acute metabolic encephalopathy Fall Activity: Per Instructions section Exercise/Sports: Gradually increase as tolerated Non-emergency contact: Primary Care Provider and Specialist Call non-emergency contact if: you have any medication questions, your symptoms worsen, your pain is concerning for you and you have a fever Follow-up/Referrals: Magy Segal MD [Primary Care Provider] - (Date & Time 04/10/2024 11:20 AM Provider Magy Segal MD Department General Internal Medicine [facility] ) Diet: Carb Consistent or DM2 and Heart Healthy Diet Texture: Easy to Chew Addtl Attending Provider Instructions: Follow-up with your primary care physician Dr. Magy Segal on 04/10/2024 11:20 AM Follow-up with Coumadin clinic for monitoring your PT/INR and adjusting Coumadin dose as needed -- Your INR is 1.2 today (04/03/2024). Take Coumadin 7.5 mg today. -- Get PT/INR in 2 days and follow-up with your Coumadin clinic/primary care physician for further instructions. --Complete the antibiotic course cefuroxime as prescribed Seek immediate medical attention if your symptoms reoccur or worsen Please take all medications as instructed on discharge list below. Please call if you have any questions or problems. You can reach a [facility] hospitalist on duty at [facility] 24 hours a day by calling [phone] Pending Studies at Discharge: No Stand-Alone Forms: My [facility], Smoking Cessation Medications and DC Order Prescriptions: New cefuroxime axetil 250 mg tablet 250 mg PO BID 4 Days Qty: 8 0RF Continued losartan 50 mg tablet 50 mg PO DAILY famotidine 20 mg tablet 20 mg PO DAILY warfarin [Jantoven] 5 mg tablet 5 mg PO UD Rx Instructions: 5mg on SUN AND TUE AND 2.5MG ON ALL OTHER DAYS fluticasone propionate 50 mcg/actuation spray,suspension 2 spray INTRANASAL DAILY glipizide 5 mg tablet 5 mg PO DAILY rosuvastatin 20 mg tablet 20 mg PO DAILY metoprolol tartrate 25 mg tablet 25 mg PO BID aspirin [Aspir-81] 81 mg Tablet,Delayed Release (Dr/Ec) 81 mg PO DAILY Discharge Orders: Discharge Order (Routine); Ordered 04/03/24 Ordered By: Brennen Jaramillo/Other Patient Handouts: Managing Type 2 Diabetes Admission Data Admit Date/Time: 04/02/24 02:02 Attending Provider: Brennen Meadows Admit Provider: Sumeet Delgado Primary Care Provider: Magy Segal
[2024-04-03 14:58] VITALS: BP 155/75; PULSE 73
[2024-04-03] MEDS: WARFARIN SOD 7.5 MG TAB PO SCH (15:49)
[2024-04-06] MEDS ORDERED: WARFARIN SOD 5 MG TAB PO SCH (16:00)
== END 2024-04-03 16:51 | disposition home health service (06) | DRG 177 ==
LOC: ED 20:22 → 2N 04-02 02:02